=== PATIENT | male | born 1940 | race Caucasian/White ===

== ENCOUNTER 2020-04-23 12:02 | Emergency (ER) | payer MEDICARE, SELFPAY ==
[2020-04-23 12:16] VITALS: BP 95/60; PULSE 77; RESP 18; TEMP 36.3; O2SAT 93; BMI 27.4
--- NOTE | 2020-04-23 13:22 | XR_ITS ---
WS: [id number] XR chest 2V* 38391 REASON FOR EXAM: cough, SOB FINDINGS: Compared to previous examination of 04/18/2020, patchy and reticular infiltrates in both lungs persist . Prominent right hilar region is again noted. Left hilum is also somewhat prominent. No new chest findings are identified. XR/XR chest 2V* 41591 IMPRESSION: Compared to previous examination of 06/15/2017, the chest of 04/18/2020 and 2019 demonstrate infiltrative changes not previously seen. Due to the time inte rval, the chronicity of these infiltrates is uncertain. The findings are compat ible with acute or subacute pneumonitis. The prominence of the hilar regions particularly that on the right is concernin g. It is possible that these are large pulmonary arteries secondary to pulmonar y hypertension however the possibility of adenopathy or neoplastic mass cannot be readily excluded. If possible, when feasible CT scan of the chest with intra venous contrast is recommended. Contrast is needed if at all possible for hilar evaluations.
--- NOTE | 2020-04-23 13:22 | ECG_ITS ---
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 Measurements Intervals [place] Rate: 74 P: 23 [place]: 286 QRS: -8 QRSD: 95 T: 11 QT: 391 QTc: 435 Interpretive Statements SINUS RHYTHM WITH FIRST DEGREE AV BLOCK Compared to ECG 06/15/2017 10:26:09 First degree AV block now present Atrial fibrillation no longer present Ventricular premature complex(es) no longer present Aberrant conduction of supraventricular beat(s) no longer present ST (T wave) deviation no longer present Electronically Signed On 04-23-2020 19:19:59 COMMERCIAL LIGHT FIXTURE ASSEMBLER by Shara Eckert M.D. [email or web address] [email or web address] hospital [facility]vel[facility] west.Tru[employer]/store/OM/[id number]
--- NOTE | 2020-04-23 13:23 | W.ED.SOB ---
HPI - SOB/Dyspnea General: Chief Complaint: Shortness of Breath/Dyspnea Stated Complaint: PCP SENT FOR BRONCHITIS/ANTIBIOTICS 2 WKS Time Seen by Provider: 04/23/20 12:55 Source: patient and family () Mode of arrival: ambulatory Limitations: no limitations History of Present Illness: HPI Narrative: Patient is a 79-year-old man with a history of coronary artery disease, peripheral artery disease, bilateral shoulder replacement, last 1 done 3 months ago. He presents to the emergency department with shortness of breath and cough that has been going on for close to 1 month now. According to the patient and his he usually gets about 2 episodes of bronchitis a year and they believed that this was what was going on initially. He has had 2 rounds of antibiotics and a course of prednisone. He tested positive for COVID-19 on March 29 and has received 10 days of dexamethasone. He has not improved much. His says that he just has been weak and has some dyspnea on exertion. MD elicited complaint: shortness of breath and cough Context: recent illness Timing: constant and progressively worsening Severity: moderate Exacerbating factors: nothing Relieving factors: nothing Associated symptoms: Deny abdominal pain, chest congestion, chest pain, cough, diaphoresis, dizziness, extremity pain, fever(s), hemoptysis, lightheadedness, myalgias, nausea, orthopnea, palpitations, paresthesias, polydipsia, polyuria, rash, sense of impending doom, syncope or vomiting Treatment prior to arrival: none Review of Systems General: Reports: 10 or more systems reviewed and unremarkable except in HPI and below Const: Denies: fever(s) or diaphoresis Eyes: Denies: change in vision or blurry vision ENMT: Denies: throat pain, enlarged tonsils, odynophagia, hoarseness, mouth pain or swelling of lips/tongue Card: Denies: chest pain, palpitations, lightheadedness, syncope or orthopnea Resp: Denies: hemoptysis or chest congestion GI: Denies: abdominal pain, nausea or vomiting : Denies: flank pain, dysuria, urinary frequency, urinary urgency or urinary hesitancy Musc: Denies: extremity pain Skin/Breast: Denies: rash, pruritus or erythema Neuro: Denies: dizziness Endo: Denies: polyuria or polydipsia Physical Exam Const: COMMON NORMALS: no acute distress, average body habitus, patient oriented x3, no limitations, healthy appearing, alert and well nourished HENMT: COMMON NORMALS: normocephalic, atraumatic and moist oral mucous membranes HEAD & SCALP: normocephalic and atraumatic Eye: COMMON NORMALS: Equal, round and reactive pupils present, EOMs intact bilaterally, conjunctivae normal and no scleral icterus CONJUNCTIVA: Yes conjunctivae normal PUPIL: Yes Equal, round and reactive pupils present Neck/C-Spine: COMMON NORMALS: no meningeal signs and no JVD Resp: COMMON NORMALS: normal respiratory effort, No retractions, No use of accessory muscles, clear to auscultation bilaterally and percussion normal AUSCULTATION: clear to auscultation bilaterally PERCUSSION: percussion normal Cardio: COMMON NORMALS: no JVD, regular rate, regular rhythm, S1 normal heart sound present, S2 normal heart sound present, No gallops present (Cardio), No clicks present (Cardio), No murmurs present (Cardio), No rub (Cardio) and Peripheral pulses 2+ throughout RATE: regular rate RHYTHM: regular rhythm HEART SOUNDS: S1 normal heart sound present and S2 normal heart sound present PERIPHERAL PULSES: Peripheral pulses 2+ throughout GI: COMMON NORMALS: Normal to inspection, nondistended, normoactive bowel sounds present, Soft to palpation, non-tender, No hepatosplenomegaly present, no masses and no bruits PALPATION: Yes Soft to palpation and Yes No hepatosplenomegaly present Extremity: COMMON NORMALS: normal to inspection, full ROM, capillary refill normal, no calf tenderness and no pedal edema Neuro: COMMON NORMALS: patient oriented x3 SENSORIUM/ORIENTATION: Yes alert MENINGEAL SIGNS: Yes no meningeal signs Skin: COMMON NORMALS: no rashes or lesions noted, no wounds, turgor normal, no jaundice, no petechiae and no mottling GENERAL SKIN EXAM: no rashes or lesions noted and turgor normal Course Reevaluation(s): Reevaluation #1: Discussed lab and imaging findings with the patient and his . I believe his symptoms are secondary to heart failure. His proBNP is elevated and he does have some groundglass appearance in his lungs on CT scan which is consistent with congestive heart failure. He also has mild aortic aneurysm and he is advised to follow-up with his vascular surgeon for these. He will benefit from an echocardiogram done on an outpatient basis. We will discharge him home with a prescription for furosemide. They voiced understanding and are in agreement with the plan. Time: 18:38 Vital Signs: Vital signs: Vital Signs Temperature 97.3 F L 04/23/20 12:16 Pulse Rate 78 04/23/20 18:58 Respiratory Rate 18 04/23/20 18:58 Blood Pressure 95/60 04/23/20 12:16 Pulse Oximetry 95 04/23/20 18:58 MDM - SOB/Dyspnea MDM Narrative: Medical decision making narrative: 79-year-old male who has been feeling unwell for close to a month now. Symptoms are initially attributed to COVID-19 which he tested positive for and had received a 10-day course of dexamethasone. He had also previously been treated for acute bronchitis with prednisone and antibiotics. Evaluation in the emergency department is consistent with congestive heart failure. The patient had endorsed dyspnea on exertion as his most significant complaint. The patient is discharged home with a prescription for oral furosemide and he is to obtain an outpatient echocardiogram. He will also follow-up with his primary care provider. Medical Records: Attestation: I reviewed the patient's medical records. Lab Data: Attestation: I reviewed the patient's lab results. Labs: Lab Results 04/23/20 04/23/20 04/23/20 Range/Units 14:05 14:05 14:05 WBC 4.3 (4.0-10.0) 10^3/ uL RBC 3.58 L (4.1-5.3) 10^6/u L Hgb 10.4 L (11.7-16.6) g/dL Hct 34.0 L (42.0-52.0) % MCV 95.0 H (80-94) fL MCH 29.1 (28.0-34.0) pg MCHC 30.6 (30.0-36.0) g/dL RDW 16.2 H (12.1-15.1) % Plt Count 213 (130-400) 10^3/c mm MPV 8.9 (7.4-10.4) fL Neut % (Auto) 64.2 % Lymph % (Auto) 17.3 % [place] % (Auto) 11.2 % Eos % (Auto) 5.2 % Baso % (Auto) 0.5 % Neut # (Auto) 2.74 (1.8-7.7) 10^3/u L Lymph # (Auto) 0.7 L (0.8-4.8) 10^3/u L [place] # (Auto) 0.5 (0.2-0.9) 10^3/u L Eos # (Auto) 0.2 (0.0-0.8) 10^3/u L Baso # (Auto) 0.0 (0.0-0.1) 10^3/u L Nucleated RBC % (a uto) 0 % Nucleated RBCs # 0.0 /100WBC D-Dimer 2.64 H (0-0.59) ug/mIFE U Sodium 140 (136-145) mmol/L Potassium 4.5 (3.5-5.1) mmol/L Chloride 105 (98-107) mmol/L Carbon Dioxide 22 (22-29) mmol/L Anion Gap 17.5 (5-19) BUN 22 (8-23) mg/dL Creatinine 2.0 H (0.7-1.2) mg/dL GFR Calculation Not Reportable Glucose 109 (65-115) mg/dL Calculated Osmolal ity 294 (285-295) mOsm/k g Lactate (0.5-2.2) mmol/L Calcium 9.9 (8.5-10.5) mg/dL Magnesium 1.9 (1.7-2.3) mg/dL Total Bilirubin 0.4 (0.15-1.2) mg/dL AST 20 (0-40) U/L ALT 12 (0-41) U/L Alkaline Phosphata se 67 (40-130) IU/L Troponin T Baselin e (0-15) ng/L Troponin T 120 Min viviane (0-15) ng/L Delta Troponin T (0-10) ABS# C-Reactive Protein 56.8 H (0.0-4.9) mg/L NT-Pro-B Natriuret Pep 1897 H (0-450) pg/mL Total Protein 6.7 (6.6-8.7) g/dL Albumin 3.6 (3.5-5.2) g/dL Globulin 3.1 (1.3-4.6) g/dL Procalcitonin 0.13 (0-0.5) ng/mL TSH 1.22 (0.27-4.20) uIU/ mL Urine Color (Yellow) Urine Appearance (CLEAR) Urine pH (5-7) Ur Specific Gravit y (1.005-1.030) Urine Protein (Negative) Urine Glucose (UA) (Normal) Urine Ketones (Negative) Urine Blood (Negative) Urine Nitrate (Negative) Urine Bilirubin (Negative) Urine Urobilinogen (Negative) mg/dL Ur Leukocyte Angelica ase (Negative) Influenza Type A A g (Negative) Influenza Type B A g (Negative) 04/23/20 04/23/20 04/23/20 Range/Units 14:05 14:05 14:05 WBC (4.0-10.0) 10^3/ uL RBC (4.1-5.3) 10^6/u L Hgb (11.7-16.6) g/dL Hct (42.0-52.0) % MCV (80-94) fL MCH (28.0-34.0) pg MCHC (30.0-36.0) g/dL RDW (12.1-15.1) % Plt Count (130-400) 10^3/c mm MPV (7.4-10.4) fL Neut % (Auto) % Lymph % (Auto) % [place] % (Auto) % Eos % (Auto) % Baso % (Auto) % Neut # (Auto) (1.8-7.7) 10^3/u L Lymph # (Auto) (0.8-4.8) 10^3/u L [place] # (Auto) (0.2-0.9) 10^3/u L Eos # (Auto) (0.0-0.8) 10^3/u L Baso # (Auto) (0.0-0.1) 10^3/u L Nucleated RBC % (a uto) % Nucleated RBCs # /100WBC D-Dimer (0-0.59) ug/mIFE U Sodium (136-145) mmol/L Potassium (3.5-5.1) mmol/L Chloride (98-107) mmol/L Carbon Dioxide (22-29) mmol/L Anion Gap (5-19) BUN (8-23) mg/dL Creatinine (0.7-1.2) mg/dL GFR Calculation Glucose (65-115) mg/dL Calculated Osmolal ity (285-295) mOsm/k g Lactate 1.3 (0.5-2.2) mmol/L Calcium (8.5-10.5) mg/dL Magnesium (1.7-2.3) mg/dL Total Bilirubin (0.15-1.2) mg/dL AST (0-40) U/L ALT (0-41) U/L Alkaline Phosphata se (40-130) IU/L Troponin T Baselin e 34 H (0-15) ng/L Troponin T 120 Min viviane (0-15) ng/L Delta Troponin T (0-10) ABS# C-Reactive Protein (0.0-4.9) mg/L NT-Pro-B Natriuret Pep (0-450) pg/mL Total Protein (6.6-8.7) g/dL Albumin (3.5-5.2) g/dL Globulin (1.3-4.6) g/dL Procalcitonin (0-0.5) ng/mL TSH (0.27-4.20) uIU/ mL Urine Color (Yellow) Urine Appearance (CLEAR) Urine pH (5-7) Ur Specific Gravit y (1.005-1.030) Urine Protein (Negative) Urine Glucose (UA) (Normal) Urine Ketones (Negative) Urine Blood (Negative) Urine Nitrate (Negative) Urine Bilirubin (Negative) Urine Urobilinogen (Negative) mg/dL Ur Leukocyte Angelica ase (Negative) Influenza Type A A g Negative (Negative) Influenza Type B A g Negative (Negative) 04/23/20 04/23/20 Range/Units 16:00 17:20 WBC (4.0-10.0) 10^3/ uL RBC (4.1-5.3) 10^6/u L Hgb (11.7-16.6) g/dL Hct (42.0-52.0) % MCV (80-94) fL MCH (28.0-34.0) pg MCHC (30.0-36.0) g/dL RDW (12.1-15.1) % Plt Count (130-400) 10^3/c mm MPV (7.4-10.4) fL Neut % (Auto) % Lymph % (Auto) % [place] % (Auto) % Eos % (Auto) % Baso % (Auto) % Neut # (Auto) (1.8-7.7) 10^3/u L Lymph # (Auto) (0.8-4.8) 10^3/u L [place] # (Auto) (0.2-0.9) 10^3/u L Eos # (Auto) (0.0-0.8) 10^3/u L Baso # (Auto) (0.0-0.1) 10^3/u L Nucleated RBC % (a uto) % Nucleated RBCs # /100WBC D-Dimer (0-0.59) ug/mIFE U Sodium (136-145) mmol/L Potassium (3.5-5.1) mmol/L Chloride (98-107) mmol/L Carbon Dioxide (22-29) mmol/L Anion Gap (5-19) BUN (8-23) mg/dL Creatinine (0.7-1.2) mg/dL GFR Calculation Glucose (65-115) mg/dL Calculated Osmolal ity (285-295) mOsm/k g Lactate (0.5-2.2) mmol/L Calcium (8.5-10.5) mg/dL Magnesium (1.7-2.3) mg/dL Total Bilirubin (0.15-1.2) mg/dL AST (0-40) U/L ALT (0-41) U/L Alkaline Phosphata se (40-130) IU/L Troponin T Baselin e (0-15) ng/L Troponin T 120 Min viviane 32.81 H (0-15) ng/L Delta Troponin T -1.19 L (0-10) ABS# C-Reactive Protein (0.0-4.9) mg/L NT-Pro-B Natriuret Pep (0-450) pg/mL Total Protein (6.6-8.7) g/dL Albumin (3.5-5.2) g/dL Globulin (1.3-4.6) g/dL Procalcitonin (0-0.5) ng/mL TSH (0.27-4.20) uIU/ mL Urine Color Yellow (Yellow) Urine Appearance Clear (CLEAR) Urine pH 6 (5-7) Ur Specific Gravit y 1.010 (1.005-1.030) Urine Protein Neg (Negative) Urine Glucose (UA) Norm (Normal) Urine Ketones Negative (Negative) Urine Blood Neg (Negative) Urine Nitrate Negative (Negative) Urine Bilirubin Neg (Negative) Urine Urobilinogen Norm (Negative) mg/dL Ur Leukocyte Angelica ase Negative (Negative) Influenza Type A A g (Negative) Influenza Type B A g (Negative) Imaging Data^: CXR: Attestation: I personally reviewed and interpreted this imaging study as follows: Radiologist's impression: [address] [address] XRay Report Signed Patient: Juan M Sierra #: [id number] : 2Acct#:[id number] Age/Sex: 79 / MADM Date: 04/23/20 Loc: ERRoom/Bed: Attending Dr: Ordering Provider/Ordering MD: Manoj Dodson MD, [facility] [place] of Service: 04/23/20 Procedure(s): XR chest 2V* 95042 Accession Number(s): [id number] Report Number: [id number] WS: [id number] XR chest 2V* 52800 REASON FOR EXAM: cough, SOB FINDINGS: Compared to previous examination of 04/18/2020, patchy and reticular infiltrates in both lungs persist. Prominent right hilar region is again noted. Left hilum is also somewhat prominent. No new chest findings are identified. XR/XR chest 2V* 75055 IMPRESSION: Compared to previous examination of 06/15/2017, the chest of 04/18/2020 and 04/23/2020 demonstrate infiltrative changes not previously seen. Due to the time interval, the chronicity of these infiltrates is uncertain. The findings are compatible with acute or subacute pneumonitis. The prominence of the hilar regions particularly that on the right is concerning. It is possible that these are large pulmonary arteries secondary to pulmonary hypertension however the possibility of adenopathy or neoplastic mass cannot be readily excluded. If possible, when feasible CT scan of the chest with intravenous contrast is recommended. Contrast is needed if at all possible for hilar evaluations. Dictated By:Rory Stevens Jr, MD Signed By:Rroy Stevens Jr MDSigned Date/Time:04/23/20 1359 DD/ 1347 CTA Chest: Attestation: I personally reviewed and interpreted this imaging study as follows: Radiologist's impression: [facility] [address] [place] [address] CT Scan Report Signed Patient: Juan M Sierra #: [id number] : 2Acct#:[id number] Age/Sex: 79 / MADM Date: 04/23/20 Loc: ERRoom/Bed: Attending Dr: Ordering Provider/Ordering MD: Manoj Dodson MD, [facility] [place] Date of Service: 04/23/20 Procedure(s): CT angio chest PE protcl 51267 Accession Number(s): [id number] Report Number: [id number] WS: [id number] CT angio chest PE protcl 41351 REASON FOR EXAM: SOB, elevated d-dimer, possible mediastinal mass TECHNIQUE: Coronal and sagittal 2-D and MIP reformations. IV CONTRAST ADMINISTERED: 66 mL of Visipaque. TOTAL EXAM DLP: 589.[address] scans at [facility] use at least one of these dose optimization techniques: automated exposure control; mA and/or kV adjustment per patient size (includes targeted exams where dose is matched to clinical indication); or iterative reconstruction. FINDINGS: Moderate four-chamber cardiac enlargement. Extensive coronary artery calcifications. The ascending aorta and aortic arch are tortuous and ectatic with a maximum diameter of 4.2 cm. Extensive calcification. The main and left and right main pulmonary arteries are prominent at 3.5 cm in diameter. No pulmonary emboli are identified. Although the main pulmonary arteries centrally are mildly dilated day do not taper relatively as would be the case in pulmonary artery hypertension. There is minor right and left hilar adenopathy and extensive calcified granulomatous change centrally. The prominence of the hilar regions is due to the prominence of the pulmonary arteries, the right side is more prominent due to overlapping of the dilated tortuous descending aorta. Scattered calcified granulomas in both lungs. No mass or lung nodule. There are patchy areas of groundglass density throughout both lungs. No significant lung consolidation. The thoracic spine demonstrates moderate changes of degenerative spondylosis. CT/CT angio chest PE protcl [id number] IMPRESSION: Mildly dilated ascending aorta and main pulmonary arteries.. The patchy groundglass density is a nonspecific finding. It is seen most commonly in congestive heart failure and in smoking-related small airway disease. Not the usual manifestation of an acute pneumonitis. Dictated By:Rory Stevens Jr, MD Signed By:Rory Stevens Jr MDSigned Date/Time:04/23/201648 DD/ 26 EKG Data^: EKG 1: Attestation: I personally reviewed and interpreted this EKG as follows: EKG Interpretation Date: 04/23/20 EKG interpretation time: 13:58 Prior EKG tracings: not available for review Interpretation: Normal sinus rhythm with first-degree AV block. Heart rate [address] changes. Normal axis. EKG 2: Attestation: I personally reviewed and interpreted this EKG as follows: EKG Interpretation Date: 04/23/20 EKG interpretation time: 17:17 Prior EKG tracings: available for review Interpretation: Sinus rhythm with first-degree AV block. Heart rate [address] changes. Normal axis. Unchanged from earlier today. Discharge Plan Discharge Patient Disposition: Home Clinical Impression: Congestive heart failure Qualifiers: Heart failure type: unspecified Heart failure chronicity: unspecified Qualified Code(s): I50.9 - Heart failure, unspecified Aortic aneurysm Qualifiers: Aortic location: thoracic aorta Presence of rupture: without rupture Qualified Code(s): I71.2 - Thoracic aortic aneurysm, without rupture Condition: Stable Prescriptions: New Lasix 20 mg tablet 20 mg PO DAILY Qty: 30 RF: 0 Continued multivitamin Tablet 1 tab PO DAILY RF: 0 aspirin 81 mg Tablet,Delayed Release (Dr/Ec) 81 mg PO DAILY RF: 0 Juany 1 - 2 tab PO PRN RF: 0 cilostazol 100 mg tablet 100 mg PO BID RF: 0 albuterol sulfate 2.5 mg /3 mL (0.083 %) Solution For Nebulization 2.5 mg INHALATION QID PRN (Reason: Shortness Of Breath) RF: 0 clonazepam 0.5 mg tablet 0.5 mg PO Q12H PRN (Reason: Anxiety) RF: 0 oxycodone-acetaminophen 5-325 mg tablet 1 - 2 tab PO TID PRN (Reason: Pain) RF: 0 isosorbide mononitrate 60 mg tablet extended release 24 hr 60 mg PO DAILY RF: 0 tamsulosin 0.4 mg capsule 0.4 mg PO DAILY RF: 0 amlodipine 10 mg tablet 10 mg PO DAILY RF: 0 indomethacin 25 mg capsule 25 mg PO TID PRN (Reason: gout) RF: 0 Nitrostat 0.4 mg Tablet, Sublingual 0.4 mg SUBLINGUAL Q5M PRN (Reason: Chest Pain) RF: 0 vitamin B complex Tablet 1 tab PO BID RF: 0 atenolol 50 mg tablet 50 mg PO BID RF: 0 garlic Tablet 2 tab PO BID RF: 0 rosuvastatin 20 mg tablet 20 mg PO DAILY RF: 0 Xarelto 2.5 mg tablet 2.5 mg PO BID RF: 0 Elderberry 1 cap PO BID RF: 0 Prevacid 1 cap PO BID PRN (Reason: unknown) RF: 0 Vitamin C 2 tab PO BID RF: 0 Vitamin D3 2 cap PO BID RF: 0 cranberry 1 tab PO BID RF: 0 vitamin A 1 cap PO BID RF: 0 zinc 2 cap PO BID RF: 0 azithromycin 250 mg tablet See Rx Instructions .ROUTE .COMPLEX RF: 0 Discharge Orders: Discharge Order (Routine); Ordered 04/23/20 Ordered By: Manoj Dodson Referrals: Kalani Guillaume MD [Primary Care Provider] - 1-3 days Discharge Diet: Low Salt Discharge Activity: Increase activity as tolerated Patient Instructions: Heart Failure (ED), Thoracic Aortic Aneurysm (ED) Activity Restrictions/Additional Instructions: Return for any new or worsening symptoms. I believe your symptoms are secondary to a condition called congestive heart failure and you will need further testing on this. You will need an ultrasound of your heart, only called an echocardiogram and you should call your battery inspector or your primary care provider to set it up. 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 Have your vascular surgeon follow this up, he does not need to be addressed emergently. Take the new medication as prescribed. It will make you urinate more than normal so I advised that you take it in the morning and not at night. Coding Level of Care Code ED Field Tax Auditor for Chg Fwd Exam Comprehensive
[2020-04-23 14:12] VITALS: PULSE 64; RESP 18
[2020-04-23 14:26] LABS: Basophils % 0.5 %; Eosinophils # 0.2 10^3/uL (0.0-0.8); Eosinophils % 5.2 %; Hemoglobin 10.4 g/dL (11.7-16.6); Lymphocytes # 0.7 10^3/uL (0.8-4.8); Lymphocytes % 17.3 %; Mean Corpuscular HGB Conc 30.6 g/dL (30.0-36.0); Mean Corpuscular Hemoglobin 29.1 pg (28.0-34.0); Mean Platelet Volume 8.9 fL (7.4-10.4); Monocytes # 0.5 10^3/uL (0.2-0.9); Monocytes % 11.2 %; Neutrophils # 2.74 10^3/uL (1.8-7.7); Neutrophils % 64.2 %; Nucleated Red Blood Cells % 0 %; Platelet Count 213 10^3/cmm (130-400); Red Blood Count 3.58 10^6/uL (4.1-5.3); Red Cell Distribution Width 16.2 % (12.1-15.1); White Blood Count 4.3 10^3/uL (4.0-10.0)
[2020-04-23 14:47] LABS: Lactate (Lactic Acid level) 1.3 mmol/L (0.5-2.2)
[2020-04-23 14:51] LABS: D Dimer 2.64 ug/mIFEU (0-0.59)
[2020-04-23 14:55] LABS: NT Pro B Type Natriuretic Pept 1897 pg/mL (0-450); Procalcitonin 0.13 ng/mL (0-0.5); Thyroid Stimulating Hormone 1.22 uIU/mL (0.27-4.20)
[2020-04-23 15:02] LABS: Influenza A by IFA Negative (Negative); Influenza B by IFA Negative (Negative)
[2020-04-23 15:07] LABS: Alanine Aminotransferase 12 U/L (0-41); Albumin Level 3.6 g/dL (3.5-5.2); Alkaline Phosphatase 67 IU/L (40-130); Anion Gap 17.5 (5-19); Aspartate Amino Transferase 20 U/L (0-40); Blood Urea Nitrogen 22 mg/dL (8-23); C Reactive Protein 56.8 mg/L (0.0-4.9); Calcium 9.9 mg/dL (8.5-10.5); Carbon Dioxide 22 mmol/L (22-29); Chloride 105 mmol/L (98-107); Globulin 3.1 g/dL (1.3-4.6); Glucose 109 mg/dL (65-115); Magnesium 1.9 mg/dL (1.7-2.3); Osmolality Calculated 294 mOsm/kg (285-295); Potassium 4.5 mmol/L (3.5-5.1); Sodium 140 mmol/L (136-145); Total Bilirubin 0.4 mg/dL (0.15-1.2); Total Protein 6.7 g/dL (6.6-8.7)
--- NOTE | 2020-04-23 15:22 | ECG_ITS ---
[facility] Test Date: 2020-04-23 Pat Name: Juan M Sierra Department: Room: Gender: Male Senior Grants Officer: : 1940 Requested By: Manoj Dodson I Order Number: [id number] Jez MD: Shara Eckert M.D. Measurements Intervals [place] Rate: 72 P: 52 MS: 283 QRS: -3 QRSD: 100 T: 11 QT: 383 QTc: 419 Interpretive Statements SINUS RHYTHM WITH MARKED SINUS ARRHYTHMIA WITH FIRST DEGREE AV BLOCK Compared to ECG 04/23/2020 13:58:08 No significant changes Electronically Signed On 04-23-2020 19:27:54 MUTUEL DEPARTMENT MANAGER by Shara Eckert M.D. [email or web address] Hui Medical [employer]/store/OM/[id number]/[id number]
--- NOTE | 2020-04-23 15:24 | CT_ITS ---
WS: [id number] CT angio chest PE protcl [id number] REASON FOR EXAM: SOB, elevated d-dimer, possible mediastinal mass TECHNIQUE: Coronal and sagittal 2-D and MIP reformations. IV CONTRAST ADMINISTERED: 66 mL of Visipaque. TOTAL EXAM DLP: 589.[address] scans at [facility] use at least one of these dose optimization techniques: automat ed exposure control; mA and/or kV adjustment per patient size (includes targeted exams where dose is matched to clinical indication); or iterative reconstruction. FINDINGS: Moderate four-chamber cardiac enlargement. Extensive coronary artery calcifications. The ascending aorta and aortic arch are tortuous and ectatic with a maximum diameter of 4.2 cm. Exten sive calcification. The main and left and right main pulmonary arteries are prominent at 3.5 cm in diameter. No pulmonary emboli are identified. Although the main pulmonary arteries centrally are mildly dilated day do not taper relatively as would be the case in pulmonary artery hypertension. There is minor right and left hilar adenopathy and extensive calcified granulomatous change centrally . The prominence of the hilar regions is due to the prominence of the pulmonary arteries, the right s delon is more prominent due to overlapping of the dilated tortuous descending aorta. Scattered calcified granulomas in both lungs. No mass or lung nodule. There are patchy areas of groundglass density throughout both lungs. No significant lung consolidatio n. The thoracic spine demonstrates moderate changes of degenerative spondylosis. CT/CT angio chest PE protcl [id number] IMPRESSION: Mildly dilated ascending aorta and main pulmonary arteries.. The patchy groundglass density is a nonspecific finding. It is seen most common ly in congestive heart failure and in smoking-related small airway disease. Not the usual manifestation of an acute pneumonitis.
[2020-04-23 15:28] LABS: Troponin(5th) Baseline 34 ng/L (0-15)
[2020-04-23] MEDS: hydrocortisone 100 mg/2 mL SDV IVP (15:57)
[2020-04-23] MEDS: diphenhydrAMINE 50 mg/mL SDV 1mL IVP (15:57)
[2020-04-23] MEDS: sodium chloride 0.9% 500 ML 999 ML IV (15:57)
[2020-04-23] MEDS: iodixanol 320 mg/mL 100mL Btl IV (16:12)
[2020-04-23 16:15] LABS: Add Urine Microscopic? NO
[2020-04-23 16:27] LABS: Bilirubin Urine Neg (Negative); Blood Urine Neg (Negative); Glucose Urine UA Norm (Normal); Ketones Urine Negative (Negative); Nitrate Urine Negative (Negative); Protein Urine Neg (Negative); Urine Appearance Clear (CLEAR); Urine Color Yellow (Yellow); Urobilinogen Urine Norm (Negative); pH Urine 6 (5-7)
[2020-04-23 16:28] LABS: Leukocyte Esterase Urine Negative (Negative)
[2020-04-23 18:02] VITALS: PULSE 78; RESP 18; O2SAT 95
[2020-04-23 18:30] LABS: Troponin 5 2HR 32.81 ng/L (0-15)
[2020-04-23 18:31] LABS: Troponin 5 2HR Delta -1.19 ABS# (0-10)
[2020-04-23 18:58] VITALS: PULSE 78; RESP 18; O2SAT 95
== END 2020-04-23 18:58 | disposition home or self-care (01) ==
PROVIDERS: Emergency Provider Family Medicine; PCP Family Medicine
DX: I50.9 Heart failure, unspecified (principal); Z79.82 Long term (current) use of aspirin; Z79.891 Long term (current) use of opiate analgesic; Z79.1 Long term (current) use of non-steroidal anti-inflammatories (NSAID); Z79.01 Long term (current) use of anticoagulants; I71.2 Thoracic aortic aneurysm, without rupture; Z86.19 Personal history of other infectious and parasitic diseases
CPT/HCPCS: 12345; 71046; 71275; 80053; 81003; 83605; 83735; 83880; 84145; 84443; 84484; 85025; 85378; 86140; 87804; 93005; 96374; 96375; 99283; 99284; J1200; J1720; J7030; Q9967

== ENCOUNTER 2020-06-27 12:02 | Outpatient (CLI) | payer MEDICARE, SELFPAY ==
[2020-06-27 12:55] LABS: Basophils % 0.6 %; Eosinophils # 0.4 10^3/uL (0.0-0.8); Eosinophils % 6.4 %; Hematocrit 34.9 % (42.0-52.0); Hemoglobin 10.5 g/dL (11.7-16.6); Lymphocytes # 1.1 10^3/uL (0.8-4.8); Lymphocytes % 16.5 %; Mean Corpuscular HGB Conc 30.1 g/dL (30.0-36.0); Mean Corpuscular Hemoglobin 28.2 pg (28.0-34.0); Mean Corpuscular Volume 93.6 fL (80-94); Mean Platelet Volume 9.2 fL (7.4-10.4); Monocytes # 0.4 10^3/uL (0.2-0.9); Monocytes % 5.8 %; Neutrophils # 4.47 10^3/uL (1.8-7.7); Neutrophils % 70.2 %; Nucleated Red Blood Cells % 0 %; Platelet Count 174 10^3/cmm (130-400); Red Blood Count 3.73 10^6/uL (4.1-5.3); Red Cell Distribution Width 16.2 % (12.1-15.1); White Blood Count 6.4 10^3/uL (4.0-10.0)
[2020-06-28 16:48] LABS: Alternaria Alternata (M6) Ige <0.10 kU/L; Alternaria Class 0; Bermuda Class 0; Bermuda Grass (G2) Ige <0.10 kU/L; Cat Dander (E1) Ige 0.11 kU/L; Cat Dander Class 0/1; Common Ragweed (Short) (W1) Ig <0.10 kU/L; D. Farinae Class 0; Dermatophagoides Class 0; Dermatophagoides Farinae (D2) <0.10 kU/L; Dermatophagoides Pteronyssinus <0.10 kU/L; Dog Dander (E5) Ige 0.35 kU/L; Dog Dander Class 1; Elm (T8) Ige <0.10 kU/L; Elm Class 0; English Plantain (W9) Ige <0.10 kU/L; English Plantain Class 0; House Dust (Greer) (H1) Ige <0.10 kU/L; House Dust (Hollister- Stier) <0.10 kU/L; House Dust Class 0; Immunoglobulin E 103 kU/L (<OR=114); Immunoglobulin E 92 kU/L (<OR=114); Johnson Grass (G10) Ige <0.10 kU/L; Johnson Grass Cl 0; June Grass Class 0; June Grass(Kentucky Blue) (G8) <0.10 kU/L; Lamb'S Quarters (Goose Foot) <0.10 kU/L; Lamb'S Quarters Class 0; Maple (Box Elder) (T1) Ige <0.10 kU/L; Maple Class 0; Meadow Fescue (G4) Ige <0.10 kU/L; Meadow Fescue Class 0; Mucor Racemosus Class 0; Oak (T7) Ige <0.10 kU/L; Oak Class 0; Orchard Grass (Cocksfoot) (G3) <0.10 kU/L; Penicillium Class 0; Penicillium Notatum (M1) Ige <0.10 kU/L; Perennial Rye Grass (G5) Ige <0.10 kU/L; Perennial Rye Grass Class 0; Ragweeed Class 0; Rough Marsh Elder (W16) Ige <0.10 kU/L; Rough Marsh Elder Class 0; Sweet Vernal Class 0; Sweet Vernal Grass (G1) Ige <0.10 kU/L; Timothy Grass (G6) Ige <0.10 kU/L; Timothy Grass Class 0
[2020-07-02 19:27] LABS: Aspergillus Fumigatus, Igg Ab, 8.1 mg/L (<=102)
== END 2020-06-27 12:03 | disposition home or self-care (01) ==
PROVIDERS: PCP Family Medicine; Visit Provider Internal Medicine Critical Care Medicine
DX: R06.02 Shortness of breath (principal); J45.909 Unspecified asthma, uncomplicated; J44.9 Chronic obstructive pulmonary disease, unspecified
CPT/HCPCS: 36415; 82785; 85025; 86003

== ENCOUNTER → 2020-07-06 15:08 | Outpatient (BNVA) | payer MEDICARE, SELFPAY | PROVIDERS: PCP Family Medicine; Visit Provider Internal Medicine Critical Care Medicine | DX: J44.9 Chronic obstructive pulmonary disease, unspecified (principal) | CPT/HCPCS: 87635 ==

== ENCOUNTER 2020-07-11 09:37 | Outpatient (CLI) | payer MEDICARE, SELFPAY ==
--- NOTE | 2020-07-11 10:26 | PFTS_ITS ---
Date of Study:07/11/20 Date of Dictation: MECHANICS: Forced vital capacity (FVC) is normal. Forced expiratory volume in one second (FEV1) is normal. FEV1/FVC is normal. FLOW VOLUME LOOP: Normal. LUNG VOLUMES: Total lung capacity (TLC) is normal. Residual volume (RV) is normal. DIFFUSING CAPACITY FOR CARBON MONOXIDE: Moderately reduced. Has not been corrected for patient's hemoglobin. INTERPRETATION: The prebronchodilator spirometry is normal. The lung volumes are normal. Gas exchange (DLCO) is moderately reduced. This is a disproportionate reduction compared to the spirometric findings. MTDD
== END 2020-07-11 09:38 | disposition home or self-care (01) ==
LOC: RT 09:39
PROVIDERS: PCP Family Medicine; Visit Provider Internal Medicine Critical Care Medicine
DX: J45.909 Unspecified asthma, uncomplicated (principal)
CPT/HCPCS: 94010; 94726; 94729

== ENCOUNTER → 2021-05-12 10:44 | Outpatient (BNVA) | payer MEDICARE, SELFPAY | PROVIDERS: PCP Family Medicine; Visit Provider Internal Medicine | DX: M19.90 Unspecified osteoarthritis, unspecified site (principal); Z79.899 Other long term (current) drug therapy; Z11.59 Encounter for screening for other viral diseases; Z11.1 Encounter for screening for respiratory tuberculosis; Z87.891 Personal history of nicotine dependence | CPT/HCPCS: 36415; 99214 ==

== ENCOUNTER 2021-05-12 13:30 | Outpatient (CLI) | payer MEDICARE, SELFPAY ==
--- NOTE | 2021-05-12 13:35 | XR_ITS ---
WS: [id number] LEFT HAND: 2 VIEW(S) TECHNIQUE: PA and lateral. HISTORY: M19.90 - Unspecified osteoarthritis, unspecified site COMPARISON: None available. No acute fracture or dislocation. Mild diffuse interphalangeal joint space narrowing. Mild narrowing at the STT and the CMC joint. Ther e are small erosions noted within the third metacarpal head and also involving the ulnar styloid and the third proximal phalanx. Peripheral arterial calcifications. XR/XR hand LT 2V [id number] IMPRESSION: 1. Suspect rheumatoid involvement. There are erosions at several locations. 2. Additional interphalangeal joint space narrowing osteoarthritis.
--- NOTE | 2021-05-12 13:35 | XR_ITS ---
WS: [id number] RIGHT HAND: 2 VIEW(S) TECHNIQUE: PA and lateral. HISTORY: M19.90 - Unspecified osteoarthritis, unspecified site COMPARISON: None available. Interphalangeal joint space narrowing is mild throughout the hand. Mild second and third metacarpal p halangeal joint space narrowing. There is an area of erosion involving the proximal third metacarpal. Lytic area in the middle phalanx of the fifth finger with thinning of the cortex. Moderate narrowing of the radiocarpal joint. Widening of the scapholunate articulation. Increased soft tissue density a djacent to the ulnar styloid and over the dorsal wrist.. Vascular calcifications XR/XR hand RT 2V [id number] IMPRESSION: 1. Soft tissue nodule with increased density adjacent to the ulnar styloid and over the dorsal wrist. Consider gout. 2. Additional erosion involving the proximal third metacarpal. 3. Widening of scapholunate articulation can be seen with rheumatoid arthritis .
--- NOTE | 2021-05-12 13:35 | XR_ITS ---
WS: [id number] RIGHT FOOT: 2 VIEW(S) TECHNIQUE: AP and lateral. HISTORY: M25.50 - Pain in unspecified joint COMPARISON: None available. No acute fracture or dislocation. Amorphous area of increased density in the soft tissues may be calcification or uremic deposit measur ing 2.5 cm adjacent to the fifth metatarsophalangeal joint. No definite erosions are identified. Very mild soft tissue thickening at the first metatarsophalangeal joint. No erosions. Moderate peripheral vascular calcifications. XR/XR foot RT 2V [id number] IMPRESSION: 1. Dense soft tissue mass at the fifth metatarsophalangeal joint. No definite erosion is identified. 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 2. Peripheral arterial calcifications.
--- NOTE | 2021-05-12 13:35 | XR_ITS ---
WS: [id number] LEFT FOOT: 2 VIEW(S) TECHNIQUE: AP and lateral. HISTORY: M25.50 - Pain in unspecified joint COMPARISON: None available. No acute fracture or dislocation. Mild osteopenia with interphalangeal joint space narrowing. Increased density in the soft tissues adj acent to the first metatarsophalangeal joint may be a uremic deposit measuring 2.7 cm. There are tiny erosions noted within the first metatarsal head. No definite additional erosions. Lucency in the fif th metatarsal head is probably a developing erosion. No subluxations. Mild peripheral arterial calcifications. Additional lobulated soft tissue density measuring 3.4 cm adjacent to the proximal fifth metatarsal. XR/XR foot LT 2V [id number] IMPRESSION: 1. High density nodules within the soft tissues adjacent to the proximal fifth metatarsal and at the first metatarsophalangeal joint. Consider gout with urem ic deposits/tophus as a possible etiology. There is a small erosion in the firs t metatarsal head. 2. No fractures.
== END 2021-05-12 13:31 | disposition home or self-care (01) ==
PROVIDERS: PCP Family Medicine; Visit Provider Internal Medicine
DX: M19.90 Unspecified osteoarthritis, unspecified site (principal); M25.50 Pain in unspecified joint; Z11.59 Encounter for screening for other viral diseases; Z11.1 Encounter for screening for respiratory tuberculosis; Z79.899 Other long term (current) drug therapy; Z87.891 Personal history of nicotine dependence
CPT/HCPCS: 36415; 73120; 73620; 80053; 82306; 82728; 83540; 83735; 84550; 85025; 85651; 86140; 86160; 86162; 86200; 86235; 86255; 86376; 86431; 86480; 86704; 86803; 87340; 99214

== ENCOUNTER → 2021-05-29 13:12 | Outpatient (BNVA) | payer MEDICARE, SELFPAY | PROVIDERS: PCP Family Medicine; Visit Provider Internal Medicine | DX: M06.00 Rheumatoid arthritis without rheumatoid factor, unspecified site (principal); N18.9 Chronic kidney disease, unspecified; I73.9 Peripheral vascular disease, unspecified; Z87.891 Personal history of nicotine dependence | CPT/HCPCS: 99213; 99214 ==

== ENCOUNTER → 2021-06-25 08:44 | Outpatient (BNVA) | payer MEDICARE, SELFPAY | PROVIDERS: PCP Family Medicine; Visit Provider Internal Medicine | DX: M19.90 Unspecified osteoarthritis, unspecified site (principal); N18.9 Chronic kidney disease, unspecified; Z79.899 Other long term (current) drug therapy | CPT/HCPCS: 36415; 80053; 85025; 85651; 86140 ==

== ENCOUNTER → 2021-07-03 12:55 | Outpatient (BNVA) | payer MEDICARE, SELFPAY | PROVIDERS: PCP Family Medicine; Visit Provider Internal Medicine | DX: M19.90 Unspecified osteoarthritis, unspecified site (principal); N18.9 Chronic kidney disease, unspecified; I73.9 Peripheral vascular disease, unspecified; G62.9 Polyneuropathy, unspecified; R19.7 Diarrhea, unspecified; Z87.891 Personal history of nicotine dependence; Z77.22 Contact with and (suspected) exposure to environmental tobacco smoke (acute) (chronic); Z96.641 Presence of right artificial hip joint; Z96.619 Presence of unspecified artificial shoulder joint | CPT/HCPCS: 99214 ==

== ENCOUNTER 2021-08-04 03:48 | Inpatient (IN) | payer MEDICARE, SELFPAY ==
[2021-08-04] VITALS (13 sets, daily range): BP systolic 128–166; BP diastolic 68–96; PULSE 63–84; RESP 14–18; TEMP 36.2–37.2; O2SAT 92–98; BMI 26.6
--- NOTE | 2021-08-04 | CT_ITS ---
WS: [id number] CT ABDOMEN AND PELVIS NONCONTRAST HISTORY: GI BLEED TECHNIQUE: Imaging performed through the abdomen and pelvis. Coronal and sagittal reformats are submi tted. All CT scans at [facility] use at least one of these dose optimization techniques: auto mated exposure control; mA and/or kV adjustment per patient size (includes targeted exams where dose is matched to clinical indication); or iterative reconstruction. DLP: 1650.84 mGy.cm COMPARISON: None available. Lower thorax: Mild enlargement of the heart chambers. Mild dependent changes at the lung bases. Very small hiatal hernia. Liver: Normal size liver. No mass or bile duct dilatation. Gallbladder: Normal gallbladder. Pancreas: Normal size and attenuation. Normal pancreatic duct. No pancreatitis or mass. Spleen: A few scattered granulomata. Normal size. Adrenal glands: Normal. No mass. Right kidney: Diffuse cortical thinning and perinephric stranding. Heavy calcification in the renal a rteries. 10 mm cortical cyst mid kidney. No obstruction. Left kidney: Numerous cysts within the LEFT kidney. The largest measures 4.1 x 3.7 cm. No hydronephro sis. There is mild perinephric stranding. Heavy vascular calcifications within the renal pelvis. Aorta: Extensive atherosclerotic plaque throughout the aorta and the mesenteric arteries. Heavy calci fied plaque in the superior mesenteric artery and to a lesser extent the celiac axis. Suspect there i s significant stenosis involving the SMA. Heavy calcification involving the proximal renal arteries. Tortuosity and mild dilatation of the infrarenal aorta. Maximum diameter is approximately 3.6 cm. Hea vy calcification continues into the common iliac arteries. No free fluid, intraperitoneal air or significant lymphadenopathy. GI tract: The appendix is normal. No small bowel obstruction. Tortuous overlapping loops of colon. Th ere is extensive diverticulosis throughout the colon but most significant involving the descending an d sigmoid colon. There is marked wall thickening within the sigmoid with numerous diverticula. Cannot evaluate for enhancing mass on this unenhanced study. The abnormality noted above the urinary bladde r on ultrasound correlates with circumferential wall thickening of the sigmoid colon and diverticular disease. No obstruction. Abdominal wall: Negative. No hernia. Pelvis: Extensive calcifications continue within the iliac arteries. Urinary bladder well distended. No free fluid in the pelvis. Artifact through the pelvis from the patient's RIGHT hip prosthesis. Osseous structures: Advanced degenerative changes throughout the lumbar spine and lower thoracic spin e. Disc spaces are narrowed. Moderate osteophytic ridging throughout the lumbar spine. CT/CT abdomen pelvis wo con [id number] IMPRESSION: 1. Extensive descending and sigmoid diverticulosis without acute diverticuliti s. There is significant wall thickening and numerous diverticula in the sigmoid region. Changes on the recent ultrasound correspond to wall thickening in the sigmoid. May need colonoscopy to exclude underlying mass. 2. No free air or free fluid. 3. Bilateral renal atrophy and cysts. 4. Severe atherosclerosis aorta and mesenteric arteries. Mild aneurysmal dilat ation aorta with a maximum diameter of 3.6 cm. 5. No adenopathy.
--- NOTE | 2021-08-04 03:55 | W.ED.GIBLEED ---
HPI - GI Bleed General: Chief complaint: GI Bleed Stated complaint: RECTAL BLEEDING Time Seen by Provider: 08/04/21 03:54 Source: patient and EMS Mode of arrival: EMS Limitations: no limitations History of Present Illness: 81-year-old male states that he been having some bright red blood in his stool over the last 2 weeks. He states that tonight starting in mid 90s did have a large amount. He states he had multiple bowel movements of. Red blood. Denies any abdominal pain denies any vomiting blood denies any dark blood. He is on blood thinners. He denies any worsening improving factors. Associated symptoms: Denies chills, easy bruising, fever(s), headache(s) or rash Review of Systems Const: Denies: fever(s), chills, body aches or change in appetite Eyes: Denies: blurry vision or eye discomfort ENMT: Denies: throat pain or dental pain Card: Denies: chest pain Resp: Denies: dyspnea GI: Reports: hematochezia : Denies: dysuria Musc: Denies: neck pain or back pain Skin/Breast: Denies: rash Neuro: Denies: headache(s) Psych: Denies: depression Gordon/Lymph: Denies: easy bruising All/Imm: Denies: urticaria PFSH ED PFSH: Family History Sister Cancer Hyperlipidemia Hypertension Rheumatoid arthritis Mother Hyperlipidemia Hypertension Rheumatoid arthritis Father Hyperlipidemia Hypertension Stroke Rheumatoid arthritis Brother Hyperlipidemia Hypertension Heart attack Rheumatoid arthritis Denies family history of Diabetes Lupus Social History Quit status (tobacco): has quit using tobacco Year quit tobacco: 1989PP x 30 Years Second hand smoke exposure: Yes Smoking risk assessment/counseling performed?: No Alcohol intake: current Alcohol intake frequency: few times a week Alcohol type: wine Desire information about alcohol rehabilitation?: No Counseling given: No Desire information about substance/drug rehabilitation?: No Counseling given: No Lives independently: Yes Household members: spouse Marital status: service: Yes Current occupational status: retired History of recent travel: No Current gender identity: Male Physical Exam Const: COMMON NORMALS: no acute distress, patient oriented x3 and healthy appearing HENMT: COMMON NORMALS: normocephalic and atraumatic HEAD & SCALP: normocephalic and atraumatic Eye: COMMON NORMALS: Equal, round and reactive pupils present and EOMs intact bilaterally PUPIL: Yes Equal, round and reactive pupils present Neck/C-Spine: COMMON NORMALS: full ROM and supple Chest: COMMONS NORMALS: normal inspection of the chest and normal palpation of entire chest wall Resp: COMMON NORMALS: normal respiratory effort, No retractions, No use of accessory muscles and clear to auscultation bilaterally AUSCULTATION: clear to auscultation bilaterally Cardio: COMMON NORMALS: regular rate, regular rhythm and No murmurs present (Cardio) RATE: regular rate RHYTHM: regular rhythm GI: COMMON NORMALS: Normal to inspection, nondistended, normoactive bowel sounds present, Soft to palpation, non-tender and no masses PALPATION: Yes Soft to palpation OTHER: Small amount of bright red blood on rectal exam that is Hemoccult positive Extremity: COMMON NORMALS: normal to inspection and full ROM Neuro: COMMON NORMALS: patient oriented x3, moves all extremities and no focal motor deficits Psych: COMMON NORMALS: mental status grossly normal, Normal thought process present and cooperative THOUGHT PROCESS: Normal thought process present Skin: COMMON NORMALS: no rashes or lesions noted and no wounds GENERAL SKIN EXAM: no rashes or lesions noted Course Vital Signs: Vital signs: Vital Signs Temperature 97.2 F L 08/04/21 03:52 Pulse Rate 74 08/04/21 04:40 Respiratory Rate 18 08/04/21 04:40 Blood Pressure 158/96 08/04/21 04:40 Pulse Oximetry 92 08/04/21 04:40 MDM - GI Bleed Medical Decision Making Patient presents here with a lower GI bleed he is on blood thinners blood count and blood pressures normal spoke to the hospitalist along with surgeon on-call and will admit at this time. Lab Data : 08/04/21 04:00 08/04/21 04:00 Laboratory Results WBC 6.4 10^3/uL (4.0-10.0) 08/04/21 04:00 RBC 3.70 10^6/uL (4.1-5.3) L 08/04/21 04:00 Hgb 11.1 g/dL (11.7-16.6) L 08/04/21 04:00 Hct 36.4 % (42.0-52.0) L 08/04/21 04:00 MCV 98.4 fl (80-94) H 08/04/21 04:00 MCH 30.0 pg (28.0-34.0) 08/04/21 04:00 MCHC 30.5 g/dL (30.0-36.0) 08/04/21 04:00 RDW 17.3 % (12.1-15.1) H 08/04/21 04:00 Plt Count 171 10^3/cmm (130-400) 08/04/21 04:00 MPV 9.5 fL (7.4-10.4) 08/04/21 04:00 Neut % (Auto) 64.3 % 08/04/21 04:00 Lymph % (Auto) 23.6 % 08/04/21 04:00 [place] % (Auto) 7.6 % 08/04/21 04:00 Eos % (Auto) 3.3 % 08/04/21 04:00 Baso % (Auto) 0.3 % 08/04/21 04:00 Neut # (Auto) 4.08 10^3/uL (1.8-7.7) 08/04/21 04:00 Lymph # (Auto) 1.5 10^3/uL (0.8-4.8) 08/04/21 04:00 [place] # (Auto) 0.5 10^3/uL (0.2-0.9) 08/04/21 04:00 Eos # (Auto) 0.2 10^3/uL (0.0-0.8) 08/04/21 04:00 Baso # (Auto) 0.0 10^3/uL (0.0-0.1) 08/04/21 04:00 Nucleated RBC % (auto) 0 % 08/04/21 04:00 Nucleated RBCs # 0.0 /100WBC 08/04/21 04:00 PT 14.70 SECONDS (12.1-14.9) 08/04/21 04:00 INR 1.12 (0.8-1.2) 08/04/21 04:00 Sodium 137 mmol/L (136-145) 08/04/21 04:00 Potassium 4.2 mmol/L (3.5-5.1) 08/04/21 04:00 Chloride 103 mmol/L (98-107) 08/04/21 04:00 Carbon Dioxide 23 mmol/L (22-29) 08/04/21 04:00 Anion Gap 15.2 (5-19) 08/04/21 04:00 BUN 33 mg/dL (8-23) H 08/04/21 04:00 Creatinine 2.2 mg/dL (0.7-1.2) H 08/04/21 04:00 GFR Calculation Not Reportable 08/04/21 04:00 Glucose 95 mg/dL (65-115) 08/04/21 04:00 Calculated Osmolality 291 mOsm/kg (285-295) 08/04/21 04:00 Calcium 9.2 mg/dL (8.5-10.5) 08/04/21 04:00 Total Bilirubin 0.4 mg/dL (0.15-1.2) 08/04/21 04:00 AST 29 U/L (0-40) 08/04/21 04:00 ALT 18 U/L (0-41) 08/04/21 04:00 Alkaline Phosphatase 77 IU/L (40-130) 08/04/21 04:00 Total Protein 6.3 g/dL (6.6-8.7) L 08/04/21 04:00 Albumin 4.2 g/dL (3.5-5.2) 08/04/21 04:00 Globulin 2.1 g/dL (1.3-4.6) 08/04/21 04:00 Blood Type O Positive 08/04/21 04:00 Rho(D) Type Positive 08/04/21 04:00 Antibody Screen Negative 08/04/21 04:00 Discharge Plan Discharge Patient Disposition: Admitted As Inpatient Clinical Impression: Acute lower GI bleeding Condition: Stable Coding Level of Care Code ED Residential Child Care Counselor for Chg Fwd Exam Comprehensive
[2021-08-04 04:09] LABS: Basophils % 0.3 %; Eosinophils # 0.2 10^3/uL (0.0-0.8); Eosinophils % 3.3 %; Hematocrit 36.4 % (42.0-52.0); Hemoglobin 11.1 g/dL (11.7-16.6); Lymphocytes # 1.5 10^3/uL (0.8-4.8); Lymphocytes % 23.6 %; Mean Corpuscular HGB Conc 30.5 g/dL (30.0-36.0); Mean Corpuscular Volume 98.4 fl (80-94); Mean Platelet Volume 9.5 fL (7.4-10.4); Monocytes # 0.5 10^3/uL (0.2-0.9); Monocytes % 7.6 %; Neutrophils # 4.08 10^3/uL (1.8-7.7); Neutrophils % 64.3 %; Nucleated Red Blood Cells % 0 %; Platelet Count 171 10^3/cmm (130-400); Red Cell Distribution Width 17.3 % (12.1-15.1); White Blood Count 6.4 10^3/uL (4.0-10.0)
[2021-08-04 04:20] LABS: INR 1.12 (0.8-1.2)
[2021-08-04 04:29] LABS: Alanine Aminotransferase 18 U/L (0-41); Albumin Level 4.2 g/dL (3.5-5.2); Alkaline Phosphatase 77 IU/L (40-130); Anion Gap 15.2 (5-19); Aspartate Amino Transferase 29 U/L (0-40); Blood Urea Nitrogen 33 mg/dL (8-23); Calcium 9.2 mg/dL (8.5-10.5); Carbon Dioxide 23 mmol/L (22-29); Chloride 103 mmol/L (98-107); Globulin 2.1 g/dL (1.3-4.6); Glucose 95 mg/dL (65-115); Osmolality Calculated 291 mOsm/kg (285-295); Potassium 4.2 mmol/L (3.5-5.1); Sodium 137 mmol/L (136-145); Total Bilirubin 0.4 mg/dL (0.15-1.2); Total Protein 6.3 g/dL (6.6-8.7)
--- NOTE | 2021-08-04 04:33 | PC.NURSE ---
Pt. having bowel movements with bright red blood and blood clots throughout.
--- NOTE | 2021-08-04 04:36 | PC.NURSE ---
Pt. family extremely nervous and repeatedly asks for staff to come help in room and keeps asking what is causing this issue. I have explained that his labs are being ran in the lab and we will have more answers when the data comes back.
--- NOTE | 2021-08-04 06:19 | US_ITS ---
WS: [id number] RENAL ULTRASOUND HISTORY: Evaluate for hydronephrosis COMPARISON: None available. TECHNIQUE: 2-D and color Doppler imaging of the kidney submitted. Right kidney: 9.8 cm x 4.9 cm x 6.8 cm. Mild renal atrophy and mild increased echogenicity. Cortical cysts. The largest in the lower pole jesse sures 1.6 x 1.8 x 1.5 cm. No solid mass. No hydronephrosis. Left kidney: 10.9 cm x 5.6 cm x 6.3 cm. Normal size kidney. Several cortical cysts with no solid mass. The largest cyst in the mid kidney jesse sures 4.0 x 4.5 x 4.5 cm. No hydronephrosis. Aorta: Mild aneurysmal dilatation of aorta. Maximum diameter 3.3 cm. Urinary Bladder: Minimally distended urinary bladder. There is a soft tissue mass predominantly predo minantly hypoechoic with a few scattered areas of increased echogenicity above the urinary bladder. T his was thought to be peristalsing. May be an abnormal loop of bowel. US/US renal BI* [id number] IMPRESSION: 1. No hydronephrosis. 2. Bilateral renal cysts. 3. Abnormal mass above the urinary bladder appear to be peristalsing on the CT . This may be a colonic lesion and will need further evaluation by CT. Suggest follow-up CT with IV contrast.
--- NOTE | 2021-08-04 06:27 | P.HP_ITS ---
Providers/Chief Complaint Admitting Physician: Lashonda Muniz MD Primary Care Provider: Kalani Guillaume MD Chief Complaint: RECTAL BLEEDING History of Present Illness Juan M Sierra is a 81 year old male with seronegative arthritis, follows with rheumatology as outpatient, presenting with lower GI bleed that started yesterday. Described as bright red blood per rectum that started at midnight. He woke up in a pool of blood and has had large amount of fresh blood and clots. 2 further episodes since presenting into ER. Denies abdominal pain. Currently on ASA, cilostazol and xarelto for a h/o CAD and PAD with femoral stents. Per , vascular surgeon at [facility] has wanted him to continue all 3. No recent change in medications except that he has recently resumed his indomethacin TID due to worsening arthritis pain after being off for a month due to CKD. No h/o past colonoscopy. 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 Recently over the past 6 weeks she has noticed some drops of blood at the end of defecation for which referral was provided to GI services at [facility] howevere patient has not been there yet. No h/o UGIE. no recent weight loss, change in appetite. Review of Systems General: Reports: 10 or more systems reviewed and unremarkable except in HPI and below Const: Denies: fever(s), chills or body aches Eyes: Denies: change in vision, blurry vision or photophobia ENMT: Reports: hoarseness; Denies: throat pain, enlarged tonsils, odynophagia or nasal congestion Card: Denies: chest pain, palpitations, irregular heart rhythm, edema, swelling of feet/ankles, lightheadedness, pre-syncope, dyspnea on exertion or orthopnea Resp: Denies: dyspnea, productive cough, non-productive cough, wheezing, stridor, pain on inspiration, change in phlegm color, hemoptysis or chest congestion GI: Denies: abdominal pain, nausea, vomiting, hematemesis, coffee ground emesis, dysphagia, heartburn, diarrhea, constipation, GI cramping, change in stool character, hematochezia or melena : Denies: flank pain, dysuria, urinary frequency, urinary urgency, urinary hesitancy or hematuria Musc: Denies: neck pain, back pain, extremity pain, joint swelling, joint warmth or deformity Neuro: Denies: headache(s), numbness in extremities, weakness in extremities, sensory changes, difficulty walking, frequent falls, dizziness, vertigo, behavioral changes, Slurred speech present or seizure-like activity Psych: Denies: anxiety, depression, suicidal ideation or homicidal ideation Endo: Denies: polyuria, polydipsia, tired all the time, cold intolerance or hot flashes Gordon/Lymph: Denies: easy bruising or easy bleeding Medications/Allergies Home Medications Medication Instructions Recorded Confirmed Last Taken Type Juany 1 - 2 tab PO PRN 04/23/20 07/03/21 Unknown History Elderberry 1 cap PO BID 04/23/20 07/03/21 Unknown History Vitamin C 2 tab PO BID 04/23/20 07/03/21 Unknown History Vitamin D3 2 cap PO BID 04/23/20 07/03/21 Unknown History albuterol sulfate 2.5 mg INHALATION QID PRN 04/23/20 07/03/21 04/23/20 History aspirin 81 mg tablet,delayed 81 mg PO DAILY 04/23/20 07/03/21 Unknown History release cilostazol 100 mg tablet 100 mg PO BID 04/23/20 07/03/21 04/23/20 History clonazepam 0.5 mg tablet 0.5 mg PO Q12H PRN 04/23/20 07/03/21 Unknown History cranberry 1 tab PO BID 04/23/20 07/03/21 Unknown History garlic 2 tab PO BID 04/23/20 07/03/21 Unknown History isosorbide mononitrate 60 mg 60 mg PO DAILY 04/23/20 07/03/21 04/23/20 History tablet,extended release 24 hr nitroglycerin 0.4 mg sublingual 0.4 mg SUBLINGUAL Q5M PRN 04/23/20 07/03/21 Unknown History tablet (Nitrostat) rivaroxaban 2.5 mg tablet (Xarelto) 2.5 mg PO BID 04/23/20 07/03/21 04/23/20 History rosuvastatin 20 mg tablet 20 mg PO DAILY 04/23/20 07/03/21 Unknown History tamsulosin 0.4 mg capsule 0.4 mg PO DAILY 04/23/20 07/03/21 04/23/20 History vitamin A 1 cap PO BID 04/23/20 07/03/21 Unknown History vitamin B complex 1 tab PO BID 04/23/20 07/03/21 Unknown History fluticasone propionate 50 1 spray INTRANASAL BID 30 Days #16 04/10/21 07/03/21 Unknown Rx mcg/actuation nasal g spray,suspension (Flonase Allergy Relief) Prevacid 1 cap PO DAILY 05/12/21 07/03/21 Unknown History amlodipine 5 mg tablet 5 mg PO DAILY 05/12/21 07/03/21 Unknown History atenolol 25 mg tablet 25 mg PO DAILY 05/12/21 07/03/21 Unknown History calcium carb-vit [id number] 1 tab PO DAILY 05/12/21 07/03/21 Unknown History 333 mg-200 unit-133 mg-5 mg tablet diphenhydramine 25 1 tab PO Q6H PRN 05/12/21 07/03/21 Unknown History mg-acetaminophen 500 mg tablet (Tylenol PM Extra Strength) indomethacin 25 mg capsule 25 mg PO TID 05/12/21 07/03/21 Unknown History omega-3 fatty acids 1,000 mg 1,000 mg PO DAILY 05/12/21 07/03/21 Unknown History capsule (Super [place]-3) triamcinolone acetonide 0.1 % 1 applic TOPICAL DAILY 05/12/21 07/03/21 Unknown History topical cream albuterol sulfate 90 mcg/actuation 2 puff INHALATION QID PRN 30 Days 05/15/21 07/03/21 Unknown Rx aerosol inhaler #18 g diclofenac sodium 1 % topical gel 4 g TOPICAL QID #100 g 05/29/21 07/03/21 Unknown Rx (Voltaren Arthritis Pain) prednisone 5 mg tablet See Rx Instructions PO DAILY #60 05/29/21 07/03/21 Unknown Rx tab Symbicort 160 mcg-4.5 See Rx Instructions .ROUTE 06/23/21 07/03/21 Unknown Rx mcg/actuation HFA aerosol inhaler .COMPLEX #11 g NS (budesonide-formoterol) sulfasalazine 500 mg tablet 0.5 g PO DAILY #30 tab 07/03/21 07/03/21 Unknown Rx gabapentin 100 mg capsule 100 mg PO DAILY #30 cap 07/04/21 Unknown Rx Allergies Allergy/AdvReac Type Severity Reaction Status Date / Time iodine Allergy ALGY-Bliste Verified 07/03/21 13:05 r morphine Allergy ALGY-Rash Verified 07/03/21 13:05 povidone-iodine Allergy Unknown Verified 07/03/21 13:05 [From Betadine] soap [From Betadine] Allergy Unknown Verified 07/03/21 13:05 PFSH Acute PFSH: Family History Sister Cancer Hyperlipidemia Hypertension Rheumatoid arthritis Mother Hyperlipidemia Hypertension Rheumatoid arthritis Father Hyperlipidemia Hypertension Stroke Rheumatoid arthritis Brother Hyperlipidemia Hypertension Heart attack Rheumatoid arthritis Denies family history of Diabetes Lupus Social History Quit status (tobacco): has quit using tobacco Year quit tobacco: 1989 - PP x 30 Years Second hand smoke exposure: Yes Smoking risk assessment/counseling performed?: No Alcohol intake: current Alcohol intake frequency: few times a week Alcohol type: wine Desire information about alcohol rehabilitation?: No Counseling given: No Desire information about substance/drug rehabilitation?: No Counseling given: No Lives independently: Yes Household members: spouse Marital status: service: Yes Current occupational status: retired History of recent travel: No Current gender identity: Male Vitals/I&O/Wt Last Vital Signs Temp 97.4 F L 08/04/21 05:33 Pulse 83 08/04/21 05:33 Resp 17 08/04/21 05:33 BP 166/84 08/04/21 05:33 Pulse Ox 96 08/04/21 05:33 Weight last 48 hrs Weight 81.647 kg Physical Exam Narrative: GEN: Awake, alert and oriented, no acute distress CVS: S1S2 N RS: CTA B/L Abd: Soft, nt/nd , bs+ TITLE INSURANCE EXAMINER: no focal neuro deficits Data : 08/04/21 04:00 08/04/21 04:00 A&P Assessment and plan (1) Acute lower GI bleeding: Painless acute lower GI bleeding Suspected to be diverticular vs hemorrhoidal bleeding Hb currently stable at 11, hemodynamically stable Holding antihypertensives for now. Hold ASA, cilostazol and xarelto. extremely anxious about stopping DAPT and a/c due to risk of CAD and PAD, however explained in detail that at this time risk of worsening bleeding and hemodynamic instability outweights the risk of potential blood clot with temporarily holding a/c and antiplatelets. Dr. Delarosa consulted from ER for likely colonoscopy NPO for now cycle H&H q6h transfusion threshold 8 in cardiac patient continue beta blockers Status: Acute (2) CKD (chronic kidney disease): cr worsened over baseline, currently at 2.2 Patient has recently resumed indomethacin TID after being off for a few months due to flare of arhthritis , which may explain worsened cr no renal imaging on record, will obtain US renal today denies any current urinary complaints Status: Acute (3) Arthritis: continue prednisone 5 mg daily, topical diclofenac gel Status: Acute Attestations Medical Necessity Statement*: >2midnight anticipated for above defined care Coding Level of Care Code Acute Structural Fitter for [facility] Diagnoses Acute lower GI bleeding K92.2 CKD (chronic kidney disease) N18.9 Arthritis M19.90
[2021-08-04] MEDS: sodium chloride 0.9% 1,000 ML 75 ML IV (06:55)
--- NOTE | 2021-08-04 08:01 | PC.NURSE ---
Per dr Muniz, for morning meds, only give the atenolol and protonix. Hold gabapentin, sulfasalazine, tamsulosin and atorvastatin until tomorrow.
[2021-08-04] MEDS: ipratropium-albuterol 3 mL Neb INHALATION ×3 (08:08→20:57)
[2021-08-04] MEDS: pantoprazole 40 mg SDV IVP ×2 (08:15→21:57)
[2021-08-04 08:30] LABS: Hematocrit 33.2 % (42.0-52.0)
--- NOTE | 2021-08-04 10:17 | PC.CHAP ---
Pastoral Care Encounter/Spiritual Assessment Type of Contact [] Declined lsat instructor visit [] Patient/Family/Request visit [] Outpatient visit [] Follow-up visit [] Physician referral [] Code/Alert [x] Routine visit [] Staff referral [] Actively dying [] Patient sleeping [] Family support [] [] Out of room [] Palliative care [] [] Receiving care in room [] Pre-surgical visit [] Trauma [] Long length of stay [] ICU visit [] Other: Relational/Emotional Strength [x] Patient feels connected with others/family/visitors/staff [] Distress [] Loneliness/isolation [] Abandonment Spirituality of Patient [x] Person of Charley [x] Attends Yazidism of their Charley [x] Believes in Prayer [x] Reads Bible or Hoahaoism materials [] There are Spiritual issues to be addressed Lining Scrubber Interventions [x] Prayer [x] Active listening x[] Non-anxious presence [x] Spiritual/emotional support [] Crisis/trauma care [] Spiritual counseling [] Bereavement support [] Provided bereavement packet [] Provided Bible/devotional materials [] Provided toy/stuffed animal, coloring book to patient or family member [] Provided Communion [] Anointing/Lead [] Salvation [x] Completed spiritual assessment [] Other: Impact on Illness or Injury [] Angry [] Fearful [] Anxious [] Often cries [] Exhaustion [] Unable to work [] Unable to attend shinto [] Unable to walk/stand [] Unable to read [] Unable to drive [] Unable to eat/drink [] Unable to sleep [] Unable to be with family [] Patient intubated [] Other: Summary Time spent with patient 15 min
[2021-08-04] MEDS: atenolol 50 mg Tablet 25 MG PO (11:13)
[2021-08-04] MEDS: diclofenac 1% Topical Gel 100 gm 1 APPLIC TOPICAL ×4 (11:13→23:03)
--- NOTE | 2021-08-04 12:44 | PM.CONSULT ---
Providers/Reason For Consult Consulting Physician/Specialty*: General Surgery Dr. Delarosa Reason for Consult*: GI bleed Attending Physician: Santos Madison MD Primary Care Provider: Kalani Guillaume MD History of Present Illness History of Present Illness Juan M Sierra is a 81 year old male who presented to the ER last night with sudden onset of painless bleeding per rectum. Patient's hemoglobin is stable around 11 and he was not hypotensive but due to the large amount of bloody bowel movements he was admitted for observation. Patient is on Xarelto. No family for colon cancer, no prior colonoscopy. He denies any constipation though has diarrhea occasionally. No prior episodes of bleeding per rectum. Review of Systems General: Reports: 10 or more systems reviewed and unremarkable except in HPI and below Medications/Allergies Home Medications Medication Instructions Recorded Confirmed Last Taken Type Vitamin D3 2 cap PO BID 04/23/20 08/04/21 Unknown History albuterol sulfate 2.5 mg INHALATION QID PRN 04/23/20 08/04/21 04/23/20 History aspirin 81 mg tablet,delayed 81 mg PO DAILY 04/23/20 08/04/21 Unknown History release cilostazol 100 mg tablet 100 mg PO BID 04/23/20 08/04/21 04/23/20 History clonazepam 0.5 mg tablet 0.5 mg PO Q12H PRN 04/23/20 08/04/21 Unknown History garlic 2 tab PO BID 04/23/20 08/04/21 Unknown History isosorbide mononitrate 60 mg 60 mg PO DAILY 04/23/20 08/04/21 04/23/20 History tablet,extended release 24 hr nitroglycerin 0.4 mg sublingual 0.4 mg SUBLINGUAL Q5M PRN 04/23/20 08/04/21 Unknown History tablet (Nitrostat) rivaroxaban 2.5 mg tablet (Xarelto) 2.5 mg PO BID 04/23/20 08/04/21 04/23/20 History rosuvastatin 20 mg tablet 20 mg PO DAILY 04/23/20 08/04/21 Unknown History tamsulosin 0.4 mg capsule 0.4 mg PO DAILY 04/23/20 08/04/21 04/23/20 History vitamin B complex 1 tab PO BID 04/23/20 08/04/21 Unknown History fluticasone propionate 50 1 spray INTRANASAL BID 30 Days #16 04/10/21 08/04/21 Unknown Rx mcg/actuation nasal g spray,suspension (Flonase Allergy Relief) amlodipine 5 mg tablet 5 mg PO DAILY 05/12/21 08/04/21 Unknown History atenolol 25 mg tablet 25 mg PO DAILY 05/12/21 08/04/21 Unknown History calcium carb-vit [id number] 1 tab PO DAILY 05/12/21 08/04/21 Unknown History 333 mg-200 unit-133 mg-5 mg tablet diphenhydramine 25 1 tab PO Q6H PRN 05/12/21 08/04/21 Unknown History mg-acetaminophen 500 mg tablet (Tylenol PM Extra Strength) indomethacin 25 mg capsule 25 mg PO TID 05/12/21 08/04/21 Unknown History omega-3 fatty acids 1,000 mg 1,000 mg PO DAILY 05/12/21 08/04/21 Unknown History capsule (Super [place]lim[place]-3) triamcinolone acetonide 0.1 % 1 applic TOPICAL DAILY 05/12/21 08/04/21 Unknown History topical cream albuterol sulfate 90 mcg/actuation 2 puff INHALATION QID PRN 30 Days 05/15/21 08/04/21 Unknown Rx aerosol inhaler #18 g diclofenac sodium 1 % topical gel 4 g TOPICAL QID #100 g 05/29/21 08/04/21 Unknown Rx (Voltaren Arthritis Pain) prednisone 5 mg tablet See Rx Instructions PO DAILY #60 05/29/21 08/04/21 Unknown Rx tab Symbicort 160 mcg-4.5 See Rx Instructions .ROUTE 06/23/21 08/04/21 Unknown Rx mcg/actuation HFA aerosol inhaler .COMPLEX #11 g NS (budesonide-formoterol) sulfasalazine 500 mg tablet 0.5 g PO DAILY #30 tab 07/03/21 08/04/21 Unknown Rx gabapentin 100 mg capsule 100 mg PO DAILY #30 cap 07/04/21 08/04/21 Unknown Rx allopurinol 300 mg tablet 300 mg PO DAILY 08/04/21 08/04/21 Unknown History ascorbic acid (vitamin C) 500 mg 250 mg PO BID 08/04/21 08/04/21 Unknown History tablet (Vitamin C) cranberry 400 mg capsule 400 mg PO DAILY 08/04/21 08/04/21 Unknown History elderberry fruit 460 mg-elderberry 1 cap PO BID 08/04/21 08/04/21 Unknown History flower 115 mg capsule fexofenadine 60 mg tablet 60 mg PO BID 08/04/21 08/04/21 Unknown History furosemide 20 mg tablet 20 mg PO PRN PRN 08/04/21 08/04/21 Unknown History lansoprazole 15 mg capsule,delayed 15 mg PO DAILY 08/04/21 08/04/21 Unknown History release multivitamin with minerals 1 tab PO DAILY 08/04/21 08/04/21 Unknown History Allergies Allergy/AdvReac Type Severity Reaction Status Date / Time iodine Allergy ALGY-Bliste Verified 08/04/21 08:58 r morphine Allergy ALGY-Rash Verified 08/04/21 08:58 povidone-iodine Allergy Unknown Verified 08/04/21 08:58 [From Betadine] soap [From Betadine] Allergy Unknown Verified 08/04/21 08:58 Current Medications Generic Name Dose Route Start Last Admin Trade Name Sgq PRN Reason Stop Dose Admin Albuterol/Ipratropium 3 ml 08/04/21 09:00 08/04/21 08:08 Ipratropium-Albuterol 3 Ml Neb INHALATION 3 ml Q6H NORMAN Administration Atenolol 25 mg 08/04/21 09:00 08/04/21 11:13 Atenolol 50 Mg Tablet PO 25 mg DAILY NORMAN Administration Atorvastatin Calcium 80 mg 08/04/21 09:00 08/04/21 08:05 Atorvastatin 40 Mg Tablet PO Not Given DAILY [facility] Diclofenac Sodium 1 applic 08/04/21 09:00 08/04/21 11:13 Diclofenac 1% Topical Gel 100 Gm TOPICAL 1 applic QID NORMAN Administration Gabapentin 100 mg 08/04/21 09:00 08/04/21 08:05 Gabapentin 100 Mg Capsule PO Not Given DAILY NORMAN Sodium Chloride 1,000 mls @ 75 mls/hr 08/04/21 06:15 08/04/21 06:55 Sodium Chloride 0.9% IV 75 mls/hr .[id number] NORMAN Administration Pantoprazole Sodium 40 mg 08/04/21 06:15 08/04/21 08:15 Pantoprazole 40 Mg Sdv IVP 40 mg Q12H NORMAN Administration Tamsulosin HCl 0.4 mg 08/04/21 09:00 02/21/22 09:37 Tamsulosin 0.4 Mg Capsule PO Not Given DAILY NORMAN PFSH Acute PFSH: Medical History CHF (congestive heart failure) CKD (chronic kidney disease) Peripheral vascular disease Pneumonia due to COVID-19 virus Surgical History H/O shoulder replacement History of right hip replacement Family History Sister Cancer Hyperlipidemia Hypertension Rheumatoid arthritis Mother Hyperlipidemia Hypertension Rheumatoid arthritis Father Hyperlipidemia Hypertension Stroke Rheumatoid arthritis Brother Hyperlipidemia Hypertension Heart attack Rheumatoid arthritis Denies family history of Diabetes Lupus Social History Quit status (tobacco): has quit using tobacco Year quit tobacco: 1989 - 4PPD x 30 Years Second hand smoke exposure: Yes Smoking risk assessment/counseling performed?: No Alcohol intake: current Alcohol intake frequency: few times a week Alcohol type: wine Desire information about alcohol rehabilitation?: No Counseling given: No Desire information about substance/drug rehabilitation?: No Counseling given: No Lives independently: Yes Household members: spouse Marital status: service: Yes Current occupational status: retired History of recent travel: No Current gender identity: Male Vitals/I&O/Wt Last Vital Signs Temp 98.9 F 08/04/21 07:09 Pulse 81 08/04/21 11:59 Resp 14 08/04/21 11:59 BP 128/68 08/04/21 11:59 Pulse Ox 95 08/04/21 11:59 Weight last 48 hrs Weight 180 lb Physical Exam Narrative: HEENT: Normocephalic Eye: Sclera /conjunctiva normal Abdomen: Soft to palpation, nontender, nondistended Neurological: Oriented to place person and time Skin: Intact, no lesions appreciated on gross exam Data : 08/04/21 08:00 08/04/21 04:00 A&P Assessment and plan (1) Acute lower GI bleedin-year-old male with hematochezia since last night. Patient is hemodynamically stable. He is on Xarelto. 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
--- NOTE | 2021-08-04 13:13 | PM.MISC ---
Miscellaneous Note Purpose of Documentation: Cover note Note: Patient seen multiple times today. Discussed multiple times with the family members regarding plan of care. Hemoglobin today morning has remained stable at 10. CT abdomen pelvis results appreciated. Patient to undergo bowel prep as per surgical team for possible colonoscopy tomorrow. Hemoglobin hematocrit every 6 hour. Doppler lower limb pulses every shift. Holding off on Xarelto, cilostazol and aspirin currently. Continue with prednisone. Monitor vitals. Clear liquid diet, n.p.o. after midnight.
[2021-08-04 14:23] LABS: Hematocrit 31.6 % (42.0-52.0); Hemoglobin 9.5 g/dL (11.7-16.6)
[2021-08-04] MEDS: peg /e-lyte soln 4,000 mL Btl 4000 ML PO (15:15)
[2021-08-04 17:37] LABS: Adenovirus Not Detected (NOT DETECT); Chlamydia Pneumoniae Not Detected (NOT DETECT); Coronavirus 229E,HKU1,NL63,OC4 Not Detected (NOT DETECT); Human Metapneumovirus Not Detected (NOT DETECT); Human Rhinovirus/Enterovirus Not Detected (NOT DETECT); Influenza A Not Detected (NOT DETECT); Influenza A H1 Not Detected (NOT DETECT); Influenza A H1-2009 Not Detected (NOT DETECT); Influenza A H3 Not Detected (NOT DETECT); Influenza B Not Detected (NOT DETECT); Mycoplasma Pneumoniae Not Detected (NOT DETECT); Parainfluenza Virus Type 1 Not Detected (NOT DETECT); Parainfluenza Virus Type 2 Not Detected (NOT DETECT); Parainfluenza Virus Type 3 Not Detected (NOT DETECT); Parainfluenza Virus Type 4 Not Detected (NOT DETECT); Respiratory Syncytial Virus A Not Detected (NOT DETECT); Respiratory Syncytial Virus B Not Detected (NOT DETECT); SARS-COV-2 Not Detected (NOT DETECT)
[2021-08-04 19:49] LABS: Hematocrit 34.3 % (42.0-52.0); Hemoglobin 10.5 g/dL (11.7-16.6)
[2021-08-05] VITALS (17 sets, daily range): BP systolic 92–155; BP diastolic 48–83; PULSE 71–106; RESP 14–18; TEMP 36.7–37.8; O2SAT 90–99
[2021-08-05] MEDS: ipratropium-albuterol 3 mL Neb INHALATION ×4 (03:21→22:07)
[2021-08-05] MEDS: sodium chloride 0.9% 1,000 ML 75 ML IV ×2 (04:45→23:45)
[2021-08-05] MEDS: acetaminophen 325 mg Tablet 650 MG PO (04:56)
[2021-08-05 05:29] LABS: Basophils % 0.3 %; Eosinophils # 0.1 10^3/uL (0.0-0.8); Eosinophils % 1.3 %; Hematocrit 31.6 % (42.0-52.0); Hemoglobin 9.7 g/dL (11.7-16.6); Lymphocytes # 0.7 10^3/uL (0.8-4.8); Lymphocytes % 9.7 %; Mean Corpuscular HGB Conc 30.7 g/dL (30.0-36.0); Mean Corpuscular Hemoglobin 29.5 pg (28.0-34.0); Monocytes # 0.4 10^3/uL (0.2-0.9); Monocytes % 5.5 %; Neutrophils # 6.13 10^3/uL (1.8-7.7); Neutrophils % 82.5 %; Nucleated Red Blood Cells % 0 %; Platelet Count 166 10^3/cmm (130-400); Red Blood Count 3.29 10^6/uL (4.1-5.3); Red Cell Distribution Width 17.8 % (12.1-15.1); White Blood Count 7.4 10^3/uL (4.0-10.0)
[2021-08-05 05:49] LABS: Alanine Aminotransferase 20 U/L (0-41); Albumin Level 4.1 g/dL (3.5-5.2); Alkaline Phosphatase 63 IU/L (40-130); Anion Gap 18.2 (5-19); Aspartate Amino Transferase 47 U/L (0-40); Blood Urea Nitrogen 21 mg/dL (8-23); Calcium 9.1 mg/dL (8.5-10.5); Carbon Dioxide 22 mmol/L (22-29); Chloride 106 mmol/L (98-107); Globulin 1.9 g/dL (1.3-4.6); Glucose 95 mg/dL (65-115); Osmolality Calculated 297 mOsm/kg (285-295); Potassium 4.2 mmol/L (3.5-5.1); Sodium 142 mmol/L (136-145); Total Bilirubin 0.5 mg/dL (0.15-1.2)
[2021-08-05] MEDS: atorvastatin 40 mg Tablet 80 MG PO (09:15)
[2021-08-05] MEDS: gabapentin 100 mg Capsule PO (09:15)
[2021-08-05] MEDS: tamsulosin 0.4 mg Capsule PO (09:15)
[2021-08-05] MEDS: atenolol 50 mg Tablet 25 MG PO (09:17)
[2021-08-05] MEDS: diclofenac 1% Topical Gel 100 gm 1 APPLIC TOPICAL ×2 (09:17→20:18)
[2021-08-05] MEDS: predniSONE 5 mg Tablet PO (09:22)
[2021-08-05] MEDS: sodium chloride 0.9% 1,000 ML 30 ML IV (11:47)
--- NOTE | 2021-08-05 11:49 | P.ANESASSM_ITS ---
Pre-Anesthetic Assessment Height/Weight: Height 1.75 m Weight 81.647 kg Temp Pulse Resp BP Pulse Ox 98.1 F 88 16 139/75 97 08/05/21 11:41 08/05/21 11:41 08/05/21 11:41 08/05/21 11:41 08/05/21 11:41 Preop Diagnosis: GI bleed Operation Date: 08/05/21 12:00 Proposed Procedures p Colonoscopy(Not Applicable) - Ezekiel Delarosa MD Familial anesthetic complications: Hip replacement 2003 didnt wake up adverse reaction to morphine per . Last intake: Intake Last Liquid Date 08/03/21 Last Liquid Time 21:00 Last Solid Date 08/03/21 Last Solid Time 21:00 Social Alcohol and No tobacco Hx of 4ppd stopped 1980s pack(s) per day Airway Submandibular: within normal limits Cervical ROM: within normal limits Mallampati: Class I Dentition: false Pulmonary Chronic Obstructive Pulmonary Disease, Exertional Dyspnea and Shortness of Breath CV/HEM Coronary Artery Disease, Congestive Heart Failure, Myocardial Infarction and Peripheral Vascular Disease cardiac stents X2 2004 EF 40% per Dr. Macias note Admitting Supervisor Dr. Gimenez follow up visit in August Severe PVD 2 stents in left leg and total obstruction in Right per . Mild AAA currently just monitoring per Dr. Gimenez. Hepatic None reported GI None reported Metabolic None reported Musc/skel Rheumatoid Arthritis and Weakness uses hinojosa METS< 4 Neuropsych Anxiety, Depression and Neuropathy Anesthetic Plan ASA status: 3 Anesthesia: Anesthesia Evaluation and MAC Medications/Allergies Home Medications Medication Instructions Recorded Confirmed Last Taken Type Vitamin D3 2 cap PO BID 04/23/20 08/04/21 Unknown History albuterol sulfate 2.5 mg INHALATION QID PRN 04/23/20 08/04/21 04/23/20 History aspirin 81 mg tablet,delayed 81 mg PO DAILY 04/23/20 08/04/21 Unknown History release cilostazol 100 mg tablet 100 mg PO BID 04/23/20 08/04/21 04/23/20 History clonazepam 0.5 mg tablet 0.5 mg PO Q12H PRN 04/23/20 08/04/21 Unknown History garlic 2 tab PO BID 04/23/20 08/04/21 Unknown History isosorbide mononitrate 60 mg 60 mg PO DAILY 04/23/20 08/04/21 04/23/20 History tablet,extended release 24 hr nitroglycerin 0.4 mg sublingual 0.4 mg SUBLINGUAL Q5M PRN 04/23/20 08/04/21 Unknown History tablet (Nitrostat) rivaroxaban 2.5 mg tablet (Xarelto) 2.5 mg PO BID 04/23/20 08/04/21 04/23/20 History rosuvastatin 20 mg tablet 20 mg PO DAILY 04/23/20 08/04/21 Unknown History tamsulosin 0.4 mg capsule 0.4 mg PO DAILY 04/23/20 08/04/21 04/23/20 History vitamin B complex 1 tab PO BID 04/23/20 08/04/21 Unknown History fluticasone propionate 50 1 spray INTRANASAL BID 30 Days #16 04/10/21 08/04/21 Unknown Rx mcg/actuation nasal g spray,suspension (Flonase Allergy Relief) amlodipine 5 mg tablet 5 mg PO DAILY 05/12/21 08/04/21 Unknown History atenolol 25 mg tablet 25 mg PO DAILY 05/12/21 08/04/21 Unknown History calcium carb-vit [id number] 1 tab PO DAILY 05/12/21 08/04/21 Unknown History 333 mg-200 unit-133 mg-5 mg tablet diphenhydramine 25 1 tab PO Q6H PRN 05/12/21 08/04/21 Unknown History mg-acetaminophen 500 mg tablet (Tylenol PM Extra Strength) indomethacin 25 mg capsule 25 mg PO TID 05/12/21 08/04/21 Unknown History omega-3 fatty acids 1,000 mg 1,000 mg PO DAILY 05/12/21 08/04/21 Unknown History capsule (Super [place]-3) triamcinolone acetonide 0.1 % 1 applic TOPICAL DAILY 05/12/21 08/04/21 Unknown History topical cream albuterol sulfate 90 mcg/actuation 2 puff INHALATION QID PRN 30 Days 05/15/21 08/04/21 Unknown Rx aerosol inhaler #18 g diclofenac sodium 1 % topical gel 4 g TOPICAL QID #100 g 05/29/21 08/04/21 Unknown Rx (Voltaren Arthritis Pain) prednisone 5 mg tablet See Rx Instructions PO DAILY #60 05/29/21 08/04/21 Unknown Rx tab Symbicort 160 mcg-4.5 See Rx Instructions .ROUTE 06/23/21 08/04/21 Unknown Rx mcg/actuation HFA aerosol inhaler .COMPLEX #11 g NS (budesonide-formoterol) sulfasalazine 500 mg tablet 0.5 g PO DAILY #30 tab 07/03/21 08/04/21 Unknown Rx gabapentin 100 mg capsule 100 mg PO DAILY #30 cap 07/04/21 08/04/21 Unknown Rx allopurinol 300 mg tablet 300 mg PO DAILY 08/04/21 08/04/21 Unknown History ascorbic acid (vitamin C) 500 mg 250 mg PO BID 08/04/21 08/04/21 Unknown History tablet (Vitamin C) cranberry 400 mg capsule 400 mg PO DAILY 08/04/21 08/04/21 Unknown History elderberry fruit 460 mg-elderberry 1 cap PO BID 08/04/21 08/04/21 Unknown History flower 115 mg capsule fexofenadine 60 mg tablet 60 mg PO BID 08/04/21 08/04/21 Unknown History furosemide 20 mg tablet 20 mg PO PRN PRN 08/04/21 08/04/21 Unknown History lansoprazole 15 mg capsule,delayed 15 mg PO DAILY 08/04/21 08/04/21 Unknown History release multivitamin with minerals 1 tab PO DAILY 08/04/21 08/04/21 Unknown History Allergies Allergy/AdvReac Type Severity Reaction Status Date / Time iodine Allergy ALGY-Bliste Verified 08/04/21 08:58 r morphine Allergy ALGY-Rash Verified 08/04/21 08:58 povidone-iodine Allergy Unknown Verified 08/04/21 08:58 [From Betadine] soap [From Betadine] Allergy Unknown Verified 08/04/21 08:58 Current Medications Generic Name Dose Route Start Last Admin Trade Name Freq PRN Reason Stop Dose Admin Acetaminophen 650 mg 08/04/21 06:12 08/05/21 04:56 Acetaminophen 325 Mg Tablet PO 650 mg Q6H PRN Administration Mild/Mod Pain Or Temp >/= 101 Albuterol/Ipratropium 3 ml 08/04/21 09:00 08/05/21 08:02 Ipratropium-Albuterol 3 Ml Neb INHALATION 3 ml Q6H NORMAN Administration Atenolol 25 mg 08/04/21 09:00 08/05/21 09:17 Atenolol 50 Mg Tablet PO 25 mg DAILY NORMAN Administration Atorvastatin Calcium 80 mg 08/04/21 09:00 08/05/21 09:15 Atorvastatin 40 Mg Tablet PO 80 mg DAILY NORMAN Administration Diclofenac Sodium 1 applic 08/04/21 09:00 08/05/21 09:17 Diclofenac 1% Topical Gel 100 Gm TOPICAL 1 applic QID NORMAN Administration Gabapentin 100 mg 08/04/21 09:00 08/05/21 09:15 Gabapentin 100 Mg Capsule PO 100 mg DAILY NORMAN Administration Sodium Chloride 1,000 mls @ 75 mls/hr 08/04/21 06:15 08/05/21 04:45 Sodium Chloride 0.9% IV 75 mls/hr .[id number] NORMAN Administration Sodium Chloride 1,000 mls @ 30 mls/hr 08/04/21 12:42 08/04/21 20:25 Sodium Chloride 0.9% IV 08/05/21 12:41 Not Given .Q24H ONE Sodium Chloride 1,000 mls @ 30 mls/hr 08/05/21 11:45 08/05/21 11:47 Sodium Chloride 0.9% IV 08/06/21 11:44 30 mls/hr .Q24H NORMAN Administration Pantoprazole Sodium 40 mg 08/04/21 06:15 08/05/21 09:51 Pantoprazole 40 Mg Sdv IVP Not Given Q12H NORMAN Prednisone 5 mg 08/05/21 09:00 08/05/21 09:22 Prednisone 5 Mg Tablet PO 5 mg DAILY NORMAN Administration Tamsulosin HCl 0.4 mg 08/04/21 09:00 08/05/21 09:15 Tamsulosin 0.4 Mg Capsule PO 0.4 mg DAILY NORMAN Administration PFSH Anesthesia Medical History CHF (congestive heart failure) CKD (chronic kidney disease) Peripheral vascular disease Pneumonia due to COVID-19 virus Surgical History H/O shoulder replacement History of right hip replacement Family History Sister Cancer Hyperlipidemia Hypertension Rheumatoid arthritis Mother Hyperlipidemia Hypertension Rheumatoid arthritis Father Hyperlipidemia Hypertension Stroke Rheumatoid arthritis Brother Hyperlipidemia Hypertension Heart attack Rheumatoid arthritis Denies family history of Diabetes Lupus Social History Quit status (tobacco): has quit using tobacco Year quit tobacco: 1989 - 4PPD x 30 Years Second hand smoke exposure: Yes Smoking risk assessment/counseling performed?: No Alcohol intake: current Alcohol intake frequency: few times a week Alcohol type: wine Desire information about alcohol rehabilitation?: No Counseling given: No Desire information about substance/drug rehabilitation?: No Counseling given: No Lives independently: Yes Household members: spouse Marital status: service: Yes Current occupational status: retired History of recent travel: No Current gender identity: Male Data Anesthesia : 08/05/21 04:46 08/05/21 04:46 Short CBC 08/04/21 08/04/21 08/04/21 Range/Units 04:00 08:00 14:10 WBC 6.4 (4.0-10.0) 10^3/uL Hgb 11.1 L 10.0 L 9.5 L (11.7-16.6) g/dL Hct 36.4 L 33.2 L 31.6 L (42.0-52.0) % MCV 98.4 H (80-94) fl Plt Count 171 (130-400) 10^3/cmm Neut % (Auto) 64.3 % Neut # (Auto) 4.08 (1.8-7.7) 10^3/uL 08/04/21 08/05/21 Range/Units 19:41 04:46 WBC 7.4 (4.0-10.0) 10^3/uL Hgb 10.5 L 9.7 L (11.7-16.6) g/dL Hct 34.3 L 31.6 L (42.0-52.0) % MCV 96.0 H (80-94) fl Plt Count 166 (130-400) 10^3/cmm Neut % (Auto) 82.5 % Neut # (Auto) 6.13 (1.8-7.7) 10^3/uL BMP 08/04/21 08/05/21 04:00 04:46 Sodium 137 142 Potassium 4.2 4.2 Chloride 103 106 Carbon Dioxide 23 22 BUN 33 H 21 Creatinine 2.2 H 1.5 H Glucose 95 95 Calcium 9.2 9.1 Liver Function 08/04/21 08/05/21 Range/Units 04:00 04:46 Total Bilirubin 0.4 0.5 (0.15-1.2) mg/dL AST 29 47 H (0-40) U/L ALT 18 20 (0-41) U/L Alkaline Phosphatase 77 63 (40-130) IU/L Albumin 4.2 4.1 (3.5-5.2) g/dL Blood Bank 08/04/21 04:00 Blood Type O Positive Rho(D) Type Positive Antibody Screen Negative COVID Results 08/04/21 15:25 Coronavirus 229E (PCR) Not detected SARS-CoV-2 (PCR) Not detected Coags 08/04/21 04:00 PT 14.70 INR 1.12 Cardiac Studies: No Data to Display
--- NOTE | 2021-08-05 13:11 | USCV_ITS ---
Juan M Sierra Age: 81 Gender: M : 1940 Exam Date: 08/05/2021 14:16 Ordering Phys: Santos Madison MD Technologist: ATIF Exam Location: [facility] – [place] Indication: CAD BP: 131 / 72 HR: 78 Rhythm: Sinus Technical Quality: Adequate MEASUREMENTS (Male / Female) Normal Values 2D ECHO LV Diastolic Diameter PLAX 4.6 cm 4.2 - 5.9 / 3.9 - 5.3 cm LV Systolic Diameter PLAX 3.0 cm IVS Diastolic Thickness 1.4 cm 0.6 - 1.0 / 0.6 - 0.9 cm IVS Systolic Thickness 2.0 cm LVPW Diastolic Thickness 1.5 cm 0.6 - 1.0 / 0.6 - 0.9 cm LVPW Systolic Thickness 1.8 cm RV Chamber Size 2.9 cm LVOT Diameter 2.0 cm LV Ejection Fraction 2D Teich 64.0 % LV Ejection Fraction MOD 2C 38.4 % LV Ejection Fraction 2C AL 39.8 % LA Diameter 3.5 cm LA Width 3.4 cm LA Height 5.8 cm RA Width 2.8 cm RA Height 5.9 cm Aorta at Sinotubular Diameter 2.9 cm M-MODE Aortic Annulus Diameter 4.1 cm LA Ao Ratio MM 0.9 MV E Point Septal Separation 0.3 cm DOPPLER AV Peak Velocity 107.0 cm/s LVOT Peak Velocity 84.0 cm/s AV Area Cont Eq vti 2.6 cm squared AV Area Cont Eq pk 2.5 cm squared MV Area PHT 5.0 cm squared MV E' Velocity 126.0 cm/s TR Peak Velocity 264.3 cm/s TR Peak Gradient 27.9 mmHg Right Atrial Pressure 3.0 mmHg Pulmonary Artery Systolic Pressu 30.9 mmHg PV Peak Velocity 84.0 cm/s RV Acceleration Time 0.1 s RV Ejection Time 0.3 s RV AcT/ET 0.3 FINDINGS Left Ventricle Normal left ventricular size and systolic function, EF 55%. Mild diffuse hypokinesia of the inferolateral wall. Right Ventricle The right ventricle is normal in size and function. Right Atrium The right atrium is normal in size. Left Atrium The left atrium is normal in size. Mitral Valve Thickened mitral valve. Mild mitral annular calcification. Trace mitral valve regurgitation. Aortic Valve Thickened aortic valve. Tricuspid Valve Mild tricuspid valve regurgitation. Pulmonic Valve No gross abnormalities noted Pericardium No pericardial effusion. Aorta Normal ascending aorta dimension. CONCLUSIONS Normal left ventricular size and systolic function, EF 55%. Mild diffuse hypokinesia of the inferolateral wall. Thickened mitral valve. Mild mitral annular calcification. Mild tricuspid valve regurgitation. Thickened aortic valve. Trace mitral valve regurgitation. There is no pericardial effusion. There are no intracardiac masses. No previous study is available for comparison. Dr Shara Eckert MD [facility] (Electronically Signed) Final Date: 05 August 2021 19:35 S
--- NOTE | 2021-08-05 13:12 | PM.PN ---
Subjective Subjective: No acute events overnight. Today morning patient seen pre and post colonoscopy. As per my conversation with Dr. Delarosa there is colonic mass. Patient is scheduled for surgery tomorrow. Patient's hemoglobin has remained stable. Patient has been in hemodynamically stable and afebrile. Care discussed in detail with patient and at bedside. Vitals/I&O/Wt Last Vital Signs Temp 98.3 F 08/05/21 12:33 Pulse 85 08/05/21 12:53 Resp 18 08/05/21 12:53 BP 131/71 08/05/21 12:53 Pulse Ox 94 08/05/21 12:53 08/04/21 08/05/21 08/05/21 22:59 06:59 14:59 Intake Total 620 / 620 565 / 1185 400 / 400 Output Total 1200 / 1200 400 / 1600 Balance -580 / -580 165 / -415 400 / 400 Weight last 48 hrs Weight 81.647 kg Physical Exam Narrative: General: No acute distress, AO x3, pale, tired appearing HEENT: PERRLA, pupils bilaterally equal and reactive Chest: Normal vesicular breath sounds, no added sounds, equal good air entry bilaterally CVS: S1-S2 regular, no murmurs, no tachycardia, no gallops, no rubs Abdomen: Soft, nontender, no organomegaly, bowel sounds present Neuro: No focal deficits, no facial deformity, AO x3, power 5/5 in all limbs Data : 08/05/21 04:46 08/05/21 04:46 A&P Assessment and plan (1) Acute lower GI bleeding: Painless acute lower GI bleeding: Hemoglobin has remained stable. Cycle hemoglobin and hematocrit every 8 hours. Clear liquid diet, n.p.o. after midnight for OR tomorrow. Continue holding off on anticoagulation, cilostazol and aspirin for now. Transfuse if hemoglobin drops below 8. Protonix 40 mg twice daily. Status: Acute (2) CKD (chronic kidney disease): Baseline creatinine 1.5. Creatinine back to baseline today. Continue with gentle IV hydration. Medical reconciliation done for nephrotoxic drugs. Renal ultrasound appreciated. Status: Acute (3) Arthritis: continue prednisone 5 mg daily, topical diclofenac gel Status: Acute (4) Colonic mass: Plan for the OR tomorrow with surgical team. N.p.o. after midnight. Hold off on anticoagulation. Status: Acute Plan Hypertension: Goal blood pressure less than 140/90 Amici. Blood pressure at goal. Continue holding off on all antihypertensives other than atenolol currently. Full code. Clear liquid diet. SCDs for DVT prophylaxis. Protonix for help with PUD prophylaxis. 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
[2021-08-05 13:44] LABS: CA 125 6.9 U/mL (0-35)
--- NOTE | 2021-08-05 15:09 | ANE.PACU2 ---
Inpatient post-anesthesia follow up: Airway intact: Yes Vital signs: Temperature 98.3 F Pulse Rate 83 Respiratory Rate 18 Blood Pressure 131/71 Pulse Oximetry 94 Oxygen Delivery Me thod Room Air Oxygen Flow Rate 3 Fraction of Inspir ed Oxygen Hydration adequate: Yes Nausea and vomiting: No Pain level: 1 Mental status: Baseline
[2021-08-05 15:32] LABS: Carcinoembryonic Antigen 2.8 ng/mL (0.0-4.7)
--- NOTE | 2021-08-05 16:26 | PM.PN ---
Subjective Subjective: Patient has not had any further bleeding today, denies any abdominal pain. His creatinine is down to 1.5 Medications: Reviewed: Yes Vitals/I&O/Wt Last Vital Signs Temp 98.9 F 08/05/21 15:44 Pulse 80 08/05/21 15:44 Resp 14 08/05/21 15:44 BP 137/76 08/05/21 15:44 Pulse Ox 90 08/05/21 15:44 08/05/21 08/05/21 08/05/21 06:59 14:59 22:59 Intake Total 565 / 1185 400 / 400 Output Total 400 / 1600 Balance 165 / -415 400 / 400 Weight last 48 hrs Weight 180 lb Physical Exam Narrative: Abdomen: Soft, nontender, nondistended Data : 08/05/21 04:46 08/05/21 04:46 A&P Assessment and plan (1) Acute lower GI ble[age]-year-old male with hematochezia who was on Xarelto. Patient is hemodynamically stable. Creatinine is improved. CT abdomen pelvis had shown thickening of the descending colon with extensive calcification of the mesenteric vessels. Plan for colonoscopy under MAC today Procedure, risks, benefits and alternatives have been discussed with the patient who wishes to proceed with surgery. 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
[2021-08-05 19:14] LABS: Hematocrit 31.2 % (42.0-52.0); Hemoglobin 9.5 g/dL (11.7-16.6)
[2021-08-05] MEDS: magnesium citrate Btl 296 mL 150 ML PO (20:14)
[2021-08-05] MEDS: pantoprazole 40 mg SDV IVP (21:50)
[2021-08-06] VITALS (37 sets, daily range): BP systolic 128–155; BP diastolic 62–97; PULSE 60–94; RESP 9–30; TEMP 36.3–37.3; O2SAT 88–100
[2021-08-06] MEDS: ipratropium-albuterol 3 mL Neb INHALATION ×3 (03:47→20:25)
[2021-08-06 05:01] LABS: Basophils % 0.2 %; Eosinophils # 0.1 10^3/uL (0.0-0.8); Eosinophils % 2.7 %; Hematocrit 28.2 % (42.0-52.0); Hemoglobin 8.7 g/dL (11.7-16.6); Lymphocytes # 0.9 10^3/uL (0.8-4.8); Lymphocytes % 17.7 %; Mean Corpuscular HGB Conc 30.9 g/dL (30.0-36.0); Mean Corpuscular Volume 97.2 fl (80-94); Mean Platelet Volume 10.3 fL (7.4-10.4); Monocytes # 0.3 10^3/uL (0.2-0.9); Monocytes % 6.5 %; Neutrophils # 3.79 10^3/uL (1.8-7.7); Neutrophils % 71.9 %; Nucleated Red Blood Cells % 0 %; Platelet Count 124 10^3/cmm (130-400); Red Cell Distribution Width 18.1 % (12.1-15.1); White Blood Count 5.3 10^3/uL (4.0-10.0)
[2021-08-06 05:19] LABS: Alanine Aminotransferase 18 U/L (0-41); Albumin Level 3.5 g/dL (3.5-5.2); Alkaline Phosphatase 53 IU/L (40-130); Blood Urea Nitrogen 12 mg/dL (8-23); Calcium 8.8 mg/dL (8.5-10.5); Carbon Dioxide 21 mmol/L (22-29); Chloride 110 mmol/L (98-107); Globulin 1.9 g/dL (1.3-4.6); Glucose 105 mg/dL (65-115); Osmolality Calculated 292 mOsm/kg (285-295); Sodium 141 mmol/L (136-145); Total Bilirubin 0.5 mg/dL (0.15-1.2); Total Protein 5.4 g/dL (6.6-8.7)
[2021-08-06 05:21] LABS: Anion Gap 14.1 (5-19); Aspartate Amino Transferase 49 U/L (0-40); Potassium 4.1 mmol/L (3.5-5.1)
[2021-08-06 05:25] LABS: Slide Review Slide Review Perform
[2021-08-06] MEDS: atenolol 50 mg Tablet 25 MG PO (09:49)
[2021-08-06] MEDS: tamsulosin 0.4 mg Capsule PO (09:49)
[2021-08-06] MEDS: gabapentin 100 mg Capsule PO (09:49)
[2021-08-06] MEDS: atorvastatin 40 mg Tablet 80 MG PO (09:50)
[2021-08-06] MEDS: pantoprazole 40 mg SDV IVP ×2 (09:50→20:50)
[2021-08-06] MEDS: predniSONE 5 mg Tablet PO (09:50)
--- NOTE | 2021-08-06 10:24 | ANES.PREANE2 ---
Pre-Anesthetic Assessment Height/Weight: Height 1.75 m Weight 81.647 kg Temp Pulse Resp BP Pulse Ox 99.1 F 94 17 152/97 95 08/06/21 10:15 08/06/21 10:15 08/06/21 10:15 08/06/21 10:15 08/06/21 10:15 Preop Diagnosis: Sigmoid mass Operation Date: 08/05/21 12:00 Proposed Procedures p Colonoscopy(Not Applicable) - Ezekiel Delarosa MD Operation Date: 08/06/21 11:00 Proposed Procedures p Laparoscopic Possible Open Sigmoidectomy(Not Applicable) - Ezekiel Delarosa MD Familial anesthetic complications: None Was Beta Karen taken within 24 hours: N/A Was Clonidine taken within 24 hours: N/A Last intake: Intake Last Liquid Date 08/05/21 Last Liquid Time 22:00 Last Solid Date 08/03/21 Last Solid Time 19:00 Social No alcohol and No tobacco former smoker Exam alert, oriented x 3, clear to auscultation bilaterally and regular rate & rhythm Airway Cervical ROM: within normal limits Mallampati: Class II Dentition: false Pulmonary Chronic Obstructive Pulmonary Disease CV/HEM Coronary Artery Disease (stents in 2004), Congestive Heart Failure (most recent echo EF 55%), Myocardial Infarction and Peripheral Vascular Disease Chronic Renal Insufficiency Musc/skel Rheumatoid Arthritis Anesthetic Plan ASA status: 3 Anesthesia: General Risk of > 500 ml blood loss (7ml/kg in children): No Medications/Allergies Home Medications Medication Instructions Recorded Confirmed Last Taken Type Vitamin D3 2 cap PO BID 04/23/20 08/04/21 Unknown History albuterol sulfate 2.5 mg INHALATION QID PRN 04/23/20 08/04/21 04/23/20 History aspirin 81 mg tablet,delayed 81 mg PO DAILY 04/23/20 08/04/21 Unknown History release cilostazol 100 mg tablet 100 mg PO BID 04/23/20 08/04/21 04/23/20 History clonazepam 0.5 mg tablet 0.5 mg PO Q12H PRN 04/23/20 08/04/21 Unknown History garlic 2 tab PO BID 04/23/20 08/04/21 Unknown History isosorbide mononitrate 60 mg 60 mg PO DAILY 04/23/20 08/04/21 04/23/20 History tablet,extended release 24 hr nitroglycerin 0.4 mg sublingual 0.4 mg SUBLINGUAL Q5M PRN 04/23/20 08/04/21 Unknown History tablet (Nitrostat) rivaroxaban 2.5 mg tablet (Xarelto) 2.5 mg PO BID 04/23/20 08/04/21 04/23/20 History rosuvastatin 20 mg tablet 20 mg PO DAILY 04/23/20 08/04/21 Unknown History tamsulosin 0.4 mg capsule 0.4 mg PO DAILY 04/23/20 08/04/21 04/23/20 History vitamin B complex 1 tab PO BID 04/23/20 08/04/21 Unknown History fluticasone propionate 50 1 spray INTRANASAL BID 30 Days #16 04/10/21 08/04/21 Unknown Rx mcg/actuation nasal g spray,suspension (Flonase Allergy Relief) amlodipine 5 mg tablet 5 mg PO DAILY 05/12/21 08/04/21 Unknown History atenolol 25 mg tablet 25 mg PO DAILY 05/12/21 08/04/21 Unknown History calcium carb-vit [id number] 1 tab PO DAILY 05/12/21 08/04/21 Unknown History 333 mg-200 unit-133 mg-5 mg tablet diphenhydramine 25 1 tab PO Q6H PRN 05/12/21 08/04/21 Unknown History mg-acetaminophen 500 mg tablet (Tylenol PM Extra Strength) indomethacin 25 mg capsule 25 mg PO TID 05/12/21 08/04/21 Unknown History omega-3 fatty acids 1,000 mg 1,000 mg PO DAILY 05/12/21 08/04/21 Unknown History capsule (Super [place]-3) triamcinolone acetonide 0.1 % 1 applic TOPICAL DAILY 05/12/21 08/04/21 Unknown History topical cream albuterol sulfate 90 mcg/actuation 2 puff INHALATION QID PRN 30 Days 05/15/21 08/04/21 Unknown Rx aerosol inhaler #18 g diclofenac sodium 1 % topical gel 4 g TOPICAL QID #100 g 05/29/21 08/04/21 Unknown Rx (Voltaren Arthritis Pain) prednisone 5 mg tablet See Rx Instructions PO DAILY #60 05/29/21 08/04/21 Unknown Rx tab Symbicort 160 mcg-4.5 See Rx Instructions .ROUTE 06/23/21 08/04/21 Unknown Rx mcg/actuation HFA aerosol inhaler .COMPLEX #11 g NS (budesonide-formoterol) sulfasalazine 500 mg tablet 0.5 g PO DAILY #30 tab 07/03/21 08/04/21 Unknown Rx gabapentin 100 mg capsule 100 mg PO DAILY #30 cap 07/04/21 08/04/21 Unknown Rx allopurinol 300 mg tablet 300 mg PO DAILY 08/04/21 08/04/21 Unknown History ascorbic acid (vitamin C) 500 mg 250 mg PO BID 08/04/21 08/04/21 Unknown History tablet (Vitamin C) cranberry 400 mg capsule 400 mg PO DAILY 08/04/21 08/04/21 Unknown History elderberry fruit 460 mg-elderberry 1 cap PO BID 08/04/21 08/04/21 Unknown History flower 115 mg capsule fexofenadine 60 mg tablet 60 mg PO BID 08/04/21 08/04/21 Unknown History furosemide 20 mg tablet 20 mg PO PRN PRN 08/04/21 08/04/21 Unknown History lansoprazole 15 mg capsule,delayed 15 mg PO DAILY 08/04/21 08/04/21 Unknown History release multivitamin with minerals 1 tab PO DAILY 08/04/21 08/04/21 Unknown History Allergies Allergy/AdvReac Type Severity Reaction Status Date / Time iodine Allergy ALGY-Bliste Verified 08/04/21 08:58 r morphine Allergy ALGY-Rash Verified 08/04/21 08:58 povidone-iodine Allergy Unknown Verified 08/04/21 08:58 [From Betadine] soap [From Betadine] Allergy Unknown Verified 08/04/21 08:58 Current Medications Generic Name Dose Route Start Last Admin Trade Name Freq PRN Reason Stop Dose Admin Acetaminophen 650 mg 08/04/21 06:12 08/05/21 04:56 Acetaminophen 325 Mg Tablet PO 650 mg Q6H PRN Administration Mild/Mod Pain Or Temp >/= 101 Albuterol/Ipratropium 3 ml 08/04/21 09:00 08/06/21 09:49 Ipratropium-Albuterol 3 Ml Neb INHALATION 3 ml Q6H NORMAN Administration Atenolol 25 mg 08/04/21 09:00 08/06/21 09:49 Atenolol 50 Mg Tablet PO 25 mg DAILY NORMAN Administration Atorvastatin Calcium 80 mg 08/04/21 09:00 08/06/21 09:50 Atorvastatin 40 Mg Tablet PO 80 mg DAILY NORMAN Administration Diclofenac Sodium 1 applic 08/04/21 09:00 08/06/21 09:56 Diclofenac 1% Topical Gel 100 Gm TOPICAL Not Given QID NORMAN Gabapentin 100 mg 08/04/21 09:00 08/06/21 09:49 Gabapentin 100 Mg Capsule PO 100 mg DAILY NORMAN Administration Sodium Chloride 1,000 mls @ 75 mls/hr 08/04/21 06:15 08/05/21 23:45 Sodium Chloride 0.9% IV 75 mls/hr .[id number] NORMAN Administration Sodium Chloride 1,000 mls @ 30 mls/hr 08/05/21 11:45 08/05/21 12:49 Sodium Chloride 0.9% IV 08/06/21 11:44 Infused .Q24H NORMAN Infusion Pantoprazole Sodium 40 mg 08/04/21 06:15 08/06/21 09:50 Pantoprazole 40 Mg Sdv IVP 40 mg Q12H NORMAN Administration Prednisone 5 mg 08/05/21 09:00 08/06/21 09:50 Prednisone 5 Mg Tablet PO 5 mg DAILY NORMAN Administration Tamsulosin HCl 0.4 mg 08/04/21 09:00 08/06/21 09:49 Tamsulosin 0.4 Mg Capsule PO 0.4 mg DAILY NORMAN Administration PFSH Anesthesia Medical History CHF (congestive heart failure) CKD (chronic kidney disease) Peripheral vascular disease Pneumonia due to COVID-19 virus Surgical History H/O shoulder replacement History of right hip replacement Family History Sister Cancer Hyperlipidemia Hypertension Rheumatoid arthritis Mother Hyperlipidemia Hypertension Rheumatoid arthritis Father Hyperlipidemia Hypertension Stroke Rheumatoid arthritis Brother Hyperlipidemia Hypertension Heart attack Rheumatoid arthritis Denies family history of Diabetes Lupus Social History Quit status (tobacco): has quit using tobacco Year quit tobacco: 1989 - PPD x 30 Years Second hand smoke exposure: Yes Smoking risk assessment/counseling performed?: No Alcohol intake: current Alcohol intake frequency: few times a week Alcohol type: wine Desire information about alcohol rehabilitation?: No Counseling given: No Desire information about substance/drug rehabilitation?: No Counseling given: No Lives independently: Yes Household members: spouse Marital status: service: Yes Current occupational status: retired History of recent travel: No Current gender identity: Male Data Anesthesia : 08/06/21 04:38 08/06/21 04:38 Short CBC 08/04/21 08/04/21 08/05/21 Range/Units 14:10 19:41 04:46 WBC 7.4 (4.0-10.0) 10^3/uL Hgb 9.5 L 10.5 L 9.7 L (11.7-16.6) g/dL Hct 31.6 L 34.3 L 31.6 L (42.0-52.0) % MCV 96.0 H (80-94) fl Plt Count 166 (130-400) 10^3/cmm Neut % (Auto) 82.5 % Neut # (Auto) 6.13 (1.8-7.7) 10^3/uL 08/05/21 08/06/21 Range/Units 18:38 04:38 WBC 5.3 (4.0-10.0) 10^3/uL Hgb 9.5 L 8.7 L (11.7-16.6) g/dL Hct 31.2 L 28.2 L (42.0-52.0) % MCV 97.2 H (80-94) fl Plt Count 124 L (130-400) 10^3/cmm Neut % (Auto) 71.9 % Neut # (Auto) 3.79 (1.8-7.7) 10^3/uL BMP 08/05/21 08/06/21 04:46 04:38 Sodium 142 141 Potassium 4.2 4.1 Chloride 106 110 H Carbon Dioxide 22 21 L BUN 21 12 Creatinine 1.5 H 1.2 Glucose 95 105 Calcium 9.1 8.8 Liver Function 08/05/21 08/06/21 Range/Units 04:46 04:38 Total Bilirubin 0.5 0.5 (0.15-1.2) mg/dL AST 47 H 49 H (0-40) U/L ALT 20 18 (0-41) U/L Alkaline Phosphatase 63 53 (40-130) IU/L Albumin 4.1 3.5 (3.5-5.2) g/dL COVID Results 08/04/21 15:25 Coronavirus 229E (PCR) Not detected SARS-CoV-2 (PCR) Not detected Cardiac Studies: Echocardiogram 08/05/21
--- NOTE | 2021-08-06 11:20 | PM.PN ---
Subjective Subjective: no issues overnight Medications: Reviewed: Yes Vitals/I&O/Wt Last Vital Signs Temp 99.1 F 08/06/21 10:15 Pulse 94 08/06/21 10:15 Resp 17 08/06/21 10:15 BP 152/97 08/06/21 10:15 Pulse Ox 95 08/06/21 10:15 08/05/21 08/06/21 08/06/21 22:59 06:59 14:59 Intake Total 1600 / 1999 0 / 1999 Output Total 1000 / 1000 Balance 1600 / 1000 -1000 / 1000 Physical Exam Narrative: Abdomen: soft NT ND Data : 08/06/21 04:38 08/06/21 04:38 A&P Assessment and plan (1) Adenocarcinoma of sigmoid colon: s/p colonoscopy with biopsy for hematochezia. An obstructing sigmoid mass is noted with severe diverticulosis Pathology: Adenocarcinoma Plan for laparoscopic possible open sigmoidectomy with possible colostomy Procedure, risks, benefits and alternatives have been discussed with the patient who wishes to proceed with surgery. 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
[2021-08-06] MEDS: piperacillin-tazobactam 3.375 GM in sodium chloride 0.9% (plus) 50 ML IV ×2 (11:35→17:01)
--- NOTE | 2021-08-06 12:06 | PM.PN ---
Subjective Subjective: No events overnight. Patient seen prior to the OR today. Nervous. at bedside. had a lot of questions regarding the OR and subsequent recovery. We discussed the plan going forward. and patient verbalizes understanding. Otherwise has remained hemodynamically stable and afebrile. Medications: Reviewed: Yes Vitals/I&O/Wt Last Vital Signs Temp 99.1 F 08/06/21 10:15 Pulse 94 08/06/21 10:15 Resp 17 08/06/21 10:15 BP 152/97 08/06/21 10:15 Pulse Ox 95 08/06/21 10:15 08/05/21 08/06/21 08/06/21 22:59 06:59 14:59 Intake Total 1599 Output Total 999 Balance 1599 -999 Physical Exam Narrative: General: No acute distress, AO x3, pale, HEENT: PERRLA, pupils bilaterally equal and reactive Chest: Normal vesicular breath sounds, no added sounds, equal good air entry bilaterally CVS: S1-S2 regular, no murmurs, no tachycardia, no gallops, no rubs Abdomen: Soft, nontender, no organomegaly, bowel sounds present Neuro: No focal deficits, no facial deformity, AO x3, power 5/5 in all limbs Data : 08/06/21 04:38 08/06/21 04:38 A&P Assessment and plan (1) Acute lower GI bleeding: Painless acute lower GI bleeding: Hemoglobin 8.7 today. We will transfuse if drops less than 8. Check hemoglobin hematocrit every 12 hourly Continue holding off on anticoagulation, cilostazol and aspirin for now. Protonix 40 mg twice daily. Status: Acute (2) Colonic mass: OR today for colonic mass resection. NPO. Holding off on anticoagulation. Status: Acute (3) CKD (chronic kidney disease): MARION has resolved. Baseline creatinine 1.5. Creatinine back to baseline today. Continue with gentle IV hydration as patient is n.p.o Medical reconciliation done for nephrotoxic drugs. Renal ultrasound appreciated. Status: Acute (4) Arthritis: continue prednisone 5 mg daily, topical diclofenac gel Status: Acute (5) Peripheral vascular disease: Status: Acute Plan Hypertension: Goal blood pressure less than 140/90 Amici. Blood pressure at goal. Continue holding off on all antihypertensives other than atenolol currently. Full code. Clear liquid diet. SCDs for DVT prophylaxis. Protonix for help with PUD prophylaxis. 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
--- NOTE | 2021-08-06 16:10 | P.OP_ITS ---
Operative Report Date of procedure: August 06, 2021 Pre-op diagnosis: Adenocarcinoma sigmoid colon CEA: 2.8 CT abdomen pelvis: No evidence of metastatic disease Post-op diagnosis: Adenocarcinoma sigmoid colon with chronic diverticular disease No peritoneal carcinomatosis or liver lesions noted Procedure done: 1. Laparoscopic sigmoid colectomy with stapled 29 mm EEA anastomosis 2. Flexible sigmoidoscopy 3. Explantation of hernia mesh Specimens removed/disposition: 1. Sigmoid colon, distal and stapled 2. Descending colon segment, suture at the distal end 3. Proximal and distal donut from EEA anastomosis Surgeon: Ezekiel Delarosa Anesthesia: General Estimated blood loss (mL): 100 IV fluids (mL): 1,200 Urine output (mL): 300 Condition: stable Disposition: ICU Procedure: The patient was taken to the operating room, intubated under general anesthesia after IV antibiotic had been administered. The patient was placed in modified lithotomy position with shoulder support and the Soliz catheter was placed. The rectum was irrigated with diluted Betadine using red rubber catheter. The abdomen and the perineum was prepped and draped in a sterile manner. Using a 15 blade, a midline infraumbilical incision was made and using open Rosas technique the peritoneal cavity was entered, 12 mm port was placed and 15 mm of pneumoperitoneum was created. A 10 mm 30? scope was then introduced. 5 mm ports were placed in the left lower quadrant and in the right upper quadrant u nder direct visualization in the midclavicular line and and a 12 mm port was placed in the right lower quadrant. Examination of the colon revealed a a mass within the sigmoid colon which had been previously inked, no signs of liver lesions or peritoneal carcinomatosis. 20 cc of 0.5% Marcaine with 20 of saline mixed with 20 cc of Exparel was injected bilaterally for a TAP block under laparoscopic visualization. The patient was placed in steep Trendelenburg position and rotated to the right in order to place a small bowel loops in the right upper quadrant. The transverse colon was retracted superiorly. The junction between the descending colon and the sigmoid colon was identified. The inferior mesenteric artery was identified near its takeoff, the peritoneum opened and dissection was carried posterior to the artery until the ureter was identified. A medial to lateral dissection of the sigmoid mesocolon was performed. There were adhesions of the sigmoid colon to the abdominal wall which were taken down. The line of Toldt was opened along the descending colon up to the splenic flexure and the avascular plane was entered to mobilize the descending colon medially. The sigmoid me socolon was divided using Ligasure down to the proximal rectum to ensure there was at least 5 cm distal margin. 2 loads of 45 mm blue load [place] DREW stapler was introduced through the right lower quadrant port to divide the rectum distally. At this point it appeared that the descending colon reached up to the rectum and the midline umbilical incision was extended up, the pneumoperitoneum was released. There was mesh from prior umbilical hernia which was excised using electrocautery and a wound protector was placed and the divided sigmoid colon was exteriorized. A noncrushing bowel clamps were placed in the descending colon and an Autosuture pursestring was placed and the sigmoid colon was cut proximally but when I attempted to pass the EEA stapler there appeared to be a proximal s tricture from chronic diverticular disease and therefore another Autosuture was placed proximally on the descending colon and cut with a 10 blade and the descending colon was divided and the specimen removed from the operating field. Serial anal dilators were used and it was decided to proceed with the 29 mm EEA stapler. The anvil of the EEA stapler was introduced into the descending colon and tied down. The colon was introduced into the peritoneal cavity and the pneumoperitoneum was recreated. The anus was digitally dilated and the EEA stapler was introduced through the anal canal and the trocar passed through the previously created staple line and attached to the anvil after ensuring that there was no twisting of the mesentery. The EEA stapler was fired to create the stapled 29 mm end-to-end anastomosis and 2 intact doughnuts were retrieved which were sent as proximal margin and distal margin. A colonoscope was introduced and passed beyond the anastomosis after submerging the anastomosis under saline in the pelvis. The air leak test was negative. There was no significant bleeding noted from the staple line. The colonoscope was withdrawn. All 4 ports were removed under direct visualization and the fascia the midline was closed using #1 loop PDS. The fascia of the right lower quadrant port was closed using [id number] 0 Vicryl suture. The subcutaneous tissue was approximated using 3-0 Vicryl suture and skin was closed using running subcuticular 4-0 Monocryl suture and Dermabond. The patient was subsequently extubated and transferred to recovery room with a Soliz catheter in place.
[2021-08-06] MEDS: D5-NS 0.45% + KCL 20 mEq 20 MEQ/1,000 ML BAG 75 MEQ IV (17:01)
[2021-08-06] MEDS: diclofenac 1% Topical Gel 100 gm 1 APPLIC TOPICAL ×2 (17:01→20:50)
--- NOTE | 2021-08-06 17:12 | PC.NURSE ---
1531 Pt received from surgery. VSS. Pt confused. Unable to answer orientation questions correctly. at bedside, explained to her that pt is probably confused d/t meds in surgery and that it should improve shortly. 1700 Pt AAOX4. C/O abd pain 03/23. Allergic to morphine, 4mg morphine wasted with David CARRANZA. PO pain med given per orders. IVF started per orders. Will monitor.
[2021-08-06] MEDS: HYDROcodone-acetaminophen 5-325 mg Tablet 1 TAB PO (17:18)
[2021-08-06] MEDS: sennosides-docusate Tablet 1 TAB PO (17:19)
[2021-08-06 19:34] LABS: Basophils % 0.1 %; Hematocrit 28.3 % (42.0-52.0); Hemoglobin 8.5 g/dL (11.7-16.6); Lymphocytes # 0.2 10^3/uL (0.8-4.8); Lymphocytes % 2.6 %; Mean Corpuscular Hemoglobin 29.7 pg (28.0-34.0); Mean Platelet Volume 9.8 fL (7.4-10.4); Monocytes # 0.2 10^3/uL (0.2-0.9); Monocytes % 2.8 %; Neutrophils # 6.74 10^3/uL (1.8-7.7); Neutrophils % 93.9 %; Nucleated Red Blood Cells % 0 %; Platelet Count 129 10^3/cmm (130-400); Red Blood Count 2.86 10^6/uL (4.1-5.3); White Blood Count 7.2 10^3/uL (4.0-10.0)
[2021-08-06 20:12] LABS: Alanine Aminotransferase 16 U/L (0-41); Albumin Level 3.3 g/dL (3.5-5.2); Alkaline Phosphatase 49 IU/L (40-130); Blood Urea Nitrogen 14 mg/dL (8-23); Calcium 8.6 mg/dL (8.5-10.5); Carbon Dioxide 21 mmol/L (22-29); Chloride 109 mmol/L (98-107); Globulin 2.4 g/dL (1.3-4.6); Glucose 171 mg/dL (65-115); Osmolality Calculated 291 mOsm/kg (285-295); Sodium 138 mmol/L (136-145); Total Bilirubin 0.5 mg/dL (0.15-1.2); Total Protein 5.7 g/dL (6.6-8.7)
[2021-08-06 20:19] LABS: Anion Gap 12.8 (5-19); Aspartate Amino Transferase 37 U/L (0-40); Potassium 4.8 mmol/L (3.5-5.1)
[2021-08-07] VITALS (28 sets, daily range): BP systolic 119–157; BP diastolic 62–108; PULSE 46–101; RESP 13–24; TEMP 36.6–37.1; O2SAT 85–100
[2021-08-07] MEDS: piperacillin-tazobactam 3.375 GM in sodium chloride 0.9% (plus) 50 ML IV ×2 (00:35→08:47)
[2021-08-07] MEDS: HYDROcodone-acetaminophen 5-325 mg Tablet 1 TAB PO ×3 (03:12→21:07)
[2021-08-07] MEDS: guaiFENesin 600 mg Tablet PO ×2 (03:12→17:13)
[2021-08-07] MEDS: ipratropium-albuterol 3 mL Neb INHALATION ×4 (03:39→21:30)
[2021-08-07 04:44] LABS: Hematocrit 26.5 % (42.0-52.0); Hemoglobin 8.1 g/dL (11.7-16.6); Lymphocytes # 0.3 10^3/uL (0.8-4.8); Lymphocytes % 4.6 %; Mean Corpuscular HGB Conc 30.6 g/dL (30.0-36.0); Mean Corpuscular Hemoglobin 30.3 pg (28.0-34.0); Mean Corpuscular Volume 99.3 fl (80-94); Mean Platelet Volume 9.9 fL (7.4-10.4); Monocytes # 0.3 10^3/uL (0.2-0.9); Monocytes % 4.2 %; Neutrophils # 6.04 10^3/uL (1.8-7.7); Neutrophils % 90.5 %; Nucleated Red Blood Cells % 0 %; Platelet Count 137 10^3/cmm (130-400); Red Blood Count 2.67 10^6/uL (4.1-5.3); Red Cell Distribution Width 17.7 % (12.1-15.1); White Blood Count 6.7 10^3/uL (4.0-10.0)
[2021-08-07 05:00] LABS: Alanine Aminotransferase 14 U/L (0-41); Albumin Level 3.4 g/dL (3.5-5.2); Alkaline Phosphatase 50 IU/L (40-130); Anion Gap 12.7 (5-19); Aspartate Amino Transferase 28 U/L (0-40); Blood Urea Nitrogen 14 mg/dL (8-23); Calcium 8.5 mg/dL (8.5-10.5); Carbon Dioxide 22 mmol/L (22-29); Chloride 109 mmol/L (98-107); Globulin 1.7 g/dL (1.3-4.6); Glucose 161 mg/dL (65-115); Osmolality Calculated 292 mOsm/kg (285-295); Potassium 4.7 mmol/L (3.5-5.1); Sodium 139 mmol/L (136-145); Total Bilirubin 0.5 mg/dL (0.15-1.2); Total Protein 5.1 g/dL (6.6-8.7)
[2021-08-07] MEDS: D5-NS 0.45% + KCL 20 mEq 20 MEQ/1,000 ML BAG 75 MEQ IV ×2 (05:32→18:49)
[2021-08-07] MEDS: enoxaparin 40 mg/0.4 mL Syringe SUBCUT (05:33)
[2021-08-07] MEDS: atorvastatin 40 mg Tablet 80 MG PO (08:46)
[2021-08-07] MEDS: atenolol 50 mg Tablet 25 MG PO (08:46)
[2021-08-07] MEDS: sennosides-docusate Tablet 1 TAB PO ×2 (08:46→17:13)
[2021-08-07] MEDS: tamsulosin 0.4 mg Capsule PO (08:47)
[2021-08-07] MEDS: gabapentin 100 mg Capsule PO (08:47)
[2021-08-07] MEDS: pantoprazole 40 mg SDV IVP ×2 (08:47→20:59)
[2021-08-07] MEDS: diclofenac 1% Topical Gel 100 gm 1 APPLIC TOPICAL ×4 (08:48→20:52)
--- NOTE | 2021-08-07 09:24 | P.PN_ITS ---
Subjective Subjective: Patient was bradycardic last night but otherwise denies abdominal pain, nausea or vomiting Vitals/I&O/Wt Last Vital Signs Temp 98.7 F 08/07/21 03:00 Pulse 82 08/07/21 09:00 Resp 20 H 08/07/21 09:00 BP 154/83 08/07/21 09:00 Pulse Ox 98 08/07/21 09:00 08/06/21 08/07/21 08/07/21 22:59 06:59 14:59 Intake Total 1100 / 2138.75 988.75 / 2138.75 Output Total 300 / 1700 1400 / 1700 Balance 800 / 438.75 -411.25 / 438.75 Physical Exam Narrative: Abdomen: Soft, minimally tender, minimally distended, incision clean dry and intact Urinary Catheter Management: Soliz: Cath Placed During This Visit: yes Reason for Continuing Indwelling Catheter: Accurate Measurement of Urinary Output in Critically Ill Patients Urinary Catheter Date of Insertion: 08/06/21 Urinary Catheter Time of Insertion: 13:18 Data : 08/07/21 04:14 08/07/21 04:14 A&P Assessment and plan (1) S/P laparoscopic-assisted sigmoidectomy: 81-year-old male status post sigmoid colectomy with postop ileus DC Zosyn after 2 doses postop DC Soliz Start clear liquid diet Ambulate with physical therapy Protonix for GI prophylaxis Lovenox for DVT prophylaxis Senna S for bowel regimen Status: Acute Attestations Medical Necessity Statement*: As per primary Coding Level of Care Code 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
[2021-08-07] MEDS: amlodipine 5 mg Tablet PO (10:07)
--- NOTE | 2021-08-07 10:16 | PC.CHAP ---
Pastoral Care Encounter/Spiritual Assessment Type of Contact [] Declined air quality instrument specialist visit [] Patient/Family/Request visit [] Outpatient visit [] Follow-up visit [] Physician referral [] Code/Alert [x] Routine visit [] Staff referral [] Actively dying [] Patient sleeping [x] Family support [] [] Out of room [] Palliative care [] [x] Receiving care in room [] Pre-surgical visit [] Trauma [] Long length of stay [x] ICU visit [] Other: Relational/Emotional Strength [] Patient feels connected with others/family/visitors/staff [] Distress [] Loneliness/isolation [] Abandonment Spirituality of Patient [] Person of Charley [] Attends Methodist of their Charley [] Believes in Prayer [] Reads Bible or Rastafari materials [] There are Spiritual issues to be addressed Final Tester Interventions [x] Prayer [x] Active listening [x] Non-anxious presence [x] Spiritual/emotional support [] Crisis/trauma care [] Spiritual counseling [] Bereavement support [] Provided bereavement packet [] Provided Bible/devotional materials [] Provided toy/stuffed animal, coloring book to patient or family member [] Provided Communion [] Anointing/[place] [] Salvation [x] Completed spiritual assessment [] Other: Impact on Illness or Injury [] Angry [] Fearful [] Anxious [] Often cries [] Exhaustion [] Unable to work [] Unable to attend bahai [] Unable to walk/stand [] Unable to read [] Unable to drive [] Unable to eat/drink [] Unable to sleep [] Unable to be with family [] Patient intubated [] Other: Summary moved to ICU from 2nd floor after surgery....feeling well... Time spent with patient 10 min
--- NOTE | 2021-08-07 10:52 | PC.SOCIAL ---
IMM update IMM updated with patient. Copy Pg 2 provided. Verbalized an understanding. Initialled, dated, timed, and placed in chart.
--- NOTE | 2021-08-07 13:36 | P.PN_ITS ---
Subjective Subjective: Today morning states he is feeling a lot better. States he has no pain in his leg. For the first time. Denies any nausea, vomiting, headache. Tolerated colonic mass resection well yesterday. Has remained hemodynamically stable and afebrile. Patient episodes of bradycardia overnight most likely secondary to sleep apnea. Medications: Reviewed: Yes Vitals/I&O/Wt Last Vital Signs Temp 98.7 F 08/07/21 03:00 Pulse 78 08/07/21 13:00 Resp 18 08/07/21 13:00 BP 135/69 08/07/21 13:00 Pulse Ox 99 08/07/21 13:00 08/06/21 08/07/21 08/07/21 22:59 06:59 14:59 Intake Total 1100 / 1150 988.75 / 2138.75 240 / 240 Output Total 300 / 300 1400 / 1700 300 / 300 Balance 800 / 850 -411.25 / 438.75 -60 / -60 Physical Exam Narrative: General: No acute distress, AO x3, pale, HEENT: PERRLA, pupils bilaterally equal and reactive Chest: Normal vesicular breath sounds, no added sounds, equal good air entry bilaterally CVS: S1-S2 regular, no murmurs, no tachycardia, no gallops, no rubs Abdomen: Soft, nontender, no organomegaly, bowel sounds present Neuro: No focal deficits, no facial deformity, AO x3, power 5/5 in all limbs Urinary Catheter Management: Soliz: Cath Placed During This Visit: yes, but has since been removed by the nurse Reason for Continuing Indwelling Catheter: Decision to DC Catheter Urinary Catheter Date of Insertion: 08/06/21 Urinary Catheter Time of Insertion: 13:18 Date Urinary Catheter Removed: 08/07/21 Time Urinary Catheter Discontinued: 10:04 Data : 08/07/21 04:14 08/07/21 04:14 A&P Assessment and plan (1) Acute lower GI bleeding: Painless acute lower GI bleeding: Hemoglobin stable. We will transfuse if drops less than 8. Check hemoglobin daily. Continue holding off on anticoagulation, cilostazol and aspirin for now. Protonix 40 mg twice daily. Status: Acute (2) Colonic mass: Post colonic mass resection day 1. Anticoagulation, diet, physical therapy, pain medication as per surgical team. Started on Lovenox, clear liquid diet. DC Soliz catheter. Status: Acute (3) CKD (chronic kidney disease): MARION present on admission. Now has resolved. Baseline creatinine 1.5. Creatinine back to baseline today. Continue with gentle IV hydration. Medical reconciliation done for nephrotoxic drugs. Renal ultrasound appreciated. Status: Acute (4) Arthritis: Holding prednisone for now to facilitate postsurgical healing. We will monitor blood pressures. If blood pressures drop we will have to reintroduce prednisone. Status: Acute (5) Peripheral vascular disease: Status: Acute Plan Hypertension: Goal blood pressure less than 140/90 mmHg. Blood pressure at goal. Continue holding off on all antihypertensives except amlodipine. Continue with home dose of atenolol. Bradycardia: Most likely secondary to sleep apnea in setting of postanesthesia. Continue with home dose of atenolol. Telemetry. Full code. Clear liquid diet. SCDs for DVT prophylaxis. Protonix for help with PUD prophylaxis. Transfer to [facility]. Attestations Medical Necessity Statement*: Requires further hospitalization for evaluation and management of postoperative care for colonic mass resection in setting of lower GI bleed on anticoagulation and blood thinner for peripheral arterial disease Time Spent in Patient Care: Greater than 35 minutes Coding Level of Care Code Acute Map Plotter for [facility] Fwdonna Diagnoses Acute lower GI bleeding K92.2 Colonic mass K63.89 CKD (chronic kidney disease) N18.9 Arthritis M19.90 Peripheral vascular disease I73.9
[2021-08-07] MEDS: fluticasone nasal spray 16gm Btl 1 SPRAY INTRANASAL (17:13)
--- NOTE | 2021-08-07 17:37 | PC.NURSE ---
Report called to ARRON Wyatt. No further questions. Will take patient to floor bed when he is done eating. notified of transfer.
--- NOTE | 2021-08-07 18:06 | PC.NURSE ---
Patient and belongings taken to 254-2. Bedside report given to ARRON Wyatt.
[2021-08-08] VITALS (15 sets, daily range): BP systolic 127–173; BP diastolic 63–88; PULSE 72–95; RESP 16–23; TEMP 36.5–37.5; O2SAT 94–97
[2021-08-08] MEDS: ipratropium-albuterol 3 mL Neb INHALATION ×4 (02:39→20:30)
[2021-08-08] MEDS: CLONazepam 0.5 mg Tablet PO (02:47)
[2021-08-08] MEDS: enoxaparin 40 mg/0.4 mL Syringe SUBCUT (06:15)
[2021-08-08 06:21] LABS: Basophils % 0.2 %; Eosinophils # 0.2 10^3/uL (0.0-0.8); Eosinophils % 4.1 %; Hematocrit 27.3 % (42.0-52.0); Hemoglobin 7.9 g/dL (11.7-16.6); Lymphocytes # 0.9 10^3/uL (0.8-4.8); Lymphocytes % 15.3 %; Mean Corpuscular HGB Conc 28.9 g/dL (30.0-36.0); Mean Corpuscular Hemoglobin 29.8 pg (28.0-34.0); Mean Platelet Volume 9.8 fL (7.4-10.4); Monocytes # 0.3 10^3/uL (0.2-0.9); Monocytes % 4.9 %; Neutrophils # 4.18 10^3/uL (1.8-7.7); Neutrophils % 75.1 %; Nucleated Red Blood Cells % 0 %; Platelet Count 141 10^3/cmm (130-400); Red Blood Count 2.65 10^6/uL (4.1-5.3); Red Cell Distribution Width 17.8 % (12.1-15.1); White Blood Count 5.6 10^3/uL (4.0-10.0)
[2021-08-08 06:34] LABS: Alanine Aminotransferase 17 U/L (0-41); Albumin Level 3.4 g/dL (3.5-5.2); Alkaline Phosphatase 50 IU/L (40-130); Anion Gap 14.3 (5-19); Aspartate Amino Transferase 30 U/L (0-40); Blood Urea Nitrogen 12 mg/dL (8-23); Calcium 8.5 mg/dL (8.5-10.5); Carbon Dioxide 22 mmol/L (22-29); Chloride 106 mmol/L (98-107); Globulin 2.2 g/dL (1.3-4.6); Glucose 115 mg/dL (65-115); Osmolality Calculated 287 mOsm/kg (285-295); Potassium 4.3 mmol/L (3.5-5.1); Sodium 138 mmol/L (136-145); Total Bilirubin 0.3 mg/dL (0.15-1.2); Total Protein 5.6 g/dL (6.6-8.7)
[2021-08-08 06:40] LABS: Creatinine Clr Calc Pharmacy 48.9296
[2021-08-08] MEDS: pantoprazole 40 mg SDV IVP ×2 (08:41→20:52)
[2021-08-08] MEDS: HYDROcodone-acetaminophen 5-325 mg Tablet 1 TAB PO ×3 (08:46→20:52)
[2021-08-08] MEDS: D5-NS 0.45% + KCL 20 mEq 20 MEQ/1,000 ML BAG 75 MEQ IV ×2 (08:51→22:25)
[2021-08-08] MEDS: guaiFENesin 600 mg Tablet PO (08:53)
[2021-08-08] MEDS: diclofenac 1% Topical Gel 100 gm 1 APPLIC TOPICAL ×4 (10:21→20:53)
[2021-08-08] MEDS: gabapentin 100 mg Capsule PO (10:21)
[2021-08-08] MEDS: atorvastatin 40 mg Tablet 80 MG PO (10:21)
[2021-08-08] MEDS: fluticasone nasal spray 16gm Btl 1 SPRAY INTRANASAL ×2 (10:21→17:29)
[2021-08-08] MEDS: amlodipine 5 mg Tablet PO (10:22)
[2021-08-08] MEDS: tamsulosin 0.4 mg Capsule PO (10:22)
[2021-08-08] MEDS: atenolol 50 mg Tablet 25 MG PO (10:22)
[2021-08-08] MEDS: sennosides-docusate Tablet 1 TAB PO ×2 (10:22→17:29)
[2021-08-08 10:27] LABS: Miscellaneous Test See Scanned Lab Rpt
--- NOTE | 2021-08-08 11:37 | PM.PN ---
Subjective Subjective: Patient denies any abdominal pain, nausea, vomiting, passing flatus and states that he had a small bowel movement Medications: Reviewed: Yes Vitals/I&O/Wt Last Vital Signs Temp 99.5 F 08/08/21 08:00 Pulse 87 08/08/21 08:34 Resp 17 08/08/21 08:34 BP 173/86 08/08/21 08:00 Pulse Ox 95 08/08/21 08:34 08/07/21 08/08/21 08/08/21 22:59 06:59 14:59 Intake Total 1436.25 / 2636.25 470 / 2636.25 1000 / 1000 Output Total 150 / 1750 1300 / 1750 Balance 1286.25 / 886.25 -830 / 886.25 1000 / 1000 Physical Exam Narrative: Abdomen: Soft mildly tender, minimally distended, incision clean dry and intact Urinary Catheter Management: Soliz: Cath Placed During This Visit: yes, but has since been removed by the nurse Reason for Continuing Indwelling Catheter: Decision to DC Catheter Urinary Catheter Date of Insertion: 08/06/21 Urinary Catheter Time of Insertion: 13:18 Date Urinary Catheter Removed: 08/07/21 Time Urinary Catheter Discontinued: 10:04 Data : 08/08/21 05:40 08/08/21 05:40 A&P Assessment and plan (1) S/P laparoscopic-assisted sigmoidectomy: 81-year-old male status post sigmoid colectomy with postop ileus, passing flatus Advance to full liquid diet Hemoglobin: 7.9, continue to monitor Ambulate with physical therapy Protonix for GI prophylaxis Lovenox for DVT prophylaxis Senna S for bowel regimen Hopefully Xarelto can be started in the next 24 to 48 hours if his hemoglobin remained stable. Status: Acute Attestations Medical Necessity Statement*: Status post colon resection requiring continued inpatient stay to ensure resolution of ileus Coding Level of Care Code Acute Retail Commission Sales Associate for Chg Fwd 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
--- NOTE | 2021-08-08 12:57 | PM.PN ---
Subjective Subjective: Patient was seen and examined this morning, denies any chest pain, shortness of breath abdominal pain nausea vomiting. Medications: Reviewed: Yes Medication Review Details: Generic Name Dose Route Start Last Admin Trade Name Freq PRN Reason Stop Dose Admin Acetaminophen 650 mg 08/04/21 06:12 08/05/21 04:56 Acetaminophen 32 5 Mg Tablet PO 650 mg Q6H PRN Administration Mild/Mod Pain Or Temp >/= 101 Hydrocodone Bitart /Acetaminophen 1 tab 08/06/21 16:33 08/08/21 15:39 Hydrocodone-Acet aminophen 5-325 Mg Tablet PO 1 tab Q6H PRN Administration MODERATE PAIN Albuterol/Ipratrop ium 3 ml 08/04/21 09:00 08/08/21 14:52 Ipratropium-Albu terol 3 Ml Neb INHALATION 3 ml Q6H NORMAN Administration Amlodipine Besylat e 5 mg 08/07/21 09:25 08/08/21 10:22 Amlodipine 5 Mg Tablet PO 5 mg DAILY NORMAN Administration Atenolol 25 mg 08/04/21 09:00 08/08/21 10:22 Atenolol 50 Mg T ablet PO 25 mg DAILY NORMAN Administration Atorvastatin Calci um 80 mg 08/04/21 09:00 08/08/21 10:21 Atorvastatin 40 Mg Tablet PO 80 mg DAILY NORMAN Administration Clonazepam 0.5 mg 08/04/21 06:16 08/08/21 02:47 Clonazepam 0.5 M g Tablet PO 0.5 mg Q12H PRN Administration Anxiety Diclofenac Sodium 1 applic 08/04/21 09:00 08/08/21 15:33 Diclofenac 1% To pical Gel 100 Gm TOPICAL 1 applic QID NORMAN Administration Enoxaparin Sodium 40 mg 08/07/21 06:00 08/08/21 06:15 Enoxaparin 40 Mg /0.4 Ml Syringe SUBCUT 40 mg Q24H NORMAN Administration Fluticasone Propio antonio 1 spray 08/07/21 18:00 08/08/21 10:21 Fluticasone Nasa l [place] 16gm Btl INTRANASAL 1 spray BID NORMAN Administration Gabapentin 100 mg 08/04/21 09:00 08/08/21 10:21 Gabapentin 100 M g Capsule PO 100 mg DAILY NORMAN Administration Guaifenesin 600 mg 08/06/21 22:28 08/08/21 08:53 Guaifenesin 600 Mg Tablet PO 600 mg BID PRN Administration COUGH Potassium Chloride /Dextrose/Sod Cl 20 meq in 1,000 m ls @ 75 mls/hr 08/06/21 16:33 08/08/21 08:51 D5-Ns 0.45% + Celso l 20 Meq IV 75 mls/hr .[id number] NORMAN Administration Pantoprazole Sodiu m 40 mg 08/04/21 06:15 08/08/21 08:41 Pantoprazole 40 Mg Sdv IVP 40 mg Q12H NORMAN Administration Prednisone 5 mg 08/05/21 09:00 08/06/21 09:50 Prednisone 5 Mg Tablet PO 5 mg DAILY NORMAN Administration Senna/Docusate Sod ium 1 tab 08/06/21 18:00 08/08/21 10:22 Sennosides-Docus ate Tablet PO 1 tab BID NORMAN Administration Tamsulosin HCl 0.4 mg 08/04/21 09:00 08/08/21 10:22 Tamsulosin 0.4 M g Capsule PO 0.4 mg DAILY NORMAN Administration Vitals/I&O/Wt Last Vital Signs Temp 99.5 F 08/08/21 08:00 Pulse 87 08/08/21 08:34 Resp 17 08/08/21 08:34 BP 173/86 08/08/21 08:00 Pulse Ox 95 08/08/21 08:34 08/07/21 08/08/21 08/08/21 22:59 06:59 14:59 Intake Total 1436.25 / 2166.25 470 / 2636.25 1000 / 1000 Output Total 150 / 450 1300 / 1750 Balance 1286.25 / 1716.25 -830 / 886.25 1000 / 1000 Physical Exam Const: COMMON NORMALS: patient oriented x3 HENMT: COMMON NORMALS: normocephalic and atraumatic HEAD & SCALP: normocephalic and atraumatic Eye: COMMON NORMALS: no scleral icterus GENERAL EYE: appearance normal, both eyes and all related structures Chest: COMMONS NORMALS: normal inspection of the chest and normal palpation of entire chest wall CHEST: Yes Symmetrical chest wall rise Resp: COMMON NORMALS: normal respiratory effort, No retractions, No use of accessory muscles and clear to auscultation bilaterally EFFORT & INSPECTION: Yes symmetric chest movement AUSCULTATION: clear to auscultation bilaterally Cardio: COMMON NORMALS: regular rate, regular rhythm, S1 normal heart sound present, S2 normal heart sound present, No gallops present (Cardio), No murmurs present (Cardio), No rub (Cardio) and Peripheral pulses 2+ throughout RATE: regular rate RHYTHM: regular rhythm HEART SOUNDS: S1 normal heart sound present and S2 normal heart sound present PERIPHERAL PULSES: Peripheral pulses 2+ throughout GI: COMMON NORMALS: Normal to inspection, nondistended, normoactive bowel sounds present, Soft to palpation, non-tender, No hepatosplenomegaly present and no masses AUSCULTATION: Yes normoactive bowel sounds PALPATION: Yes Soft to palpation and Yes No hepatosplenomegaly present RECTAL EXAM: Yes deferred Extremity: COMMON NORMALS: no clubbing, cyanosis or edema and no pedal edema Neuro: COMMON NORMALS: patient oriented x3 Urinary Catheter Management: Soliz: Cath Placed During This Visit: yes, but has since been removed by the nurse Reason for Continuing Indwelling Catheter: Decision to DC Catheter Urinary Catheter Date of Insertion: 08/06/21 Urinary Catheter Time of Insertion: 13:18 Date Urinary Catheter Removed: 08/07/21 Time Urinary Catheter Discontinued: 10:04 Data : 08/08/21 05:40 08/08/21 05:40 A&P Assessment and plan (1) Acute lower GI bleeding: Painless acute lower GI bleeding: Hemoglobin stable. We will transfuse if drops less than 8. Check hemoglobin daily. Continue holding off on anticoagulation, cilostazol and aspirin for now. Protonix 40 mg twice daily. Status: Acute (2) Colonic mass: Post colonic mass resection day 1. Anticoagulation, diet, physical therapy, pain medication as per surgical team. Started on Lovenox, clear liquid diet. DC Soliz catheter. Status: Acute (3) CKD (chronic kidney disease): MARION present on admission. Now has resolved. Baseline creatinine 1.5. Creatinine back to baseline today. Continue with gentle IV hydration. Medical reconciliation done for nephrotoxic drugs. Renal ultrasound appreciated. Status: Acute (4) Arthritis: Holding prednisone for now to facilitate postsurgical healing. We will monitor blood pressures. If blood pressures drop we will have to reintroduce prednisone. Status: Acute (5) Peripheral vascular disease: Status: Acute Plan 81 year old male? with PMH seronegative arthritis, follows with rheumatology as outpatient, presenting with lower GI bleed. #Acute LGI bleed: Continue to monitor H&H Transfuse if hemoglobin is less than 7.5 Continue Protonix 40 mg twice daily Continue to hold off Xarelto aspirin and cilostazol #Colonic mass: S/P colonic resection. Follow pathology report On [facility] Appreciate surgery input #Hypertension: Continue amlodipine, continue atenolol. #History of PAD: On aspirin and cilostazol, currently on hold Full code. DVT prophylaxis. On Lovenox Attestations Medical Necessity Statement*: Patient is to the hospital for management of GI bleed. 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
[2021-08-09] VITALS (18 sets, daily range): BP systolic 121–176; BP diastolic 70–85; PULSE 78–108; RESP 16–21; TEMP 36.7–37.8; O2SAT 91–97
[2021-08-09] MEDS: ipratropium-albuterol 3 mL Neb INHALATION ×4 (03:14→20:06)
[2021-08-09] MEDS: enoxaparin 40 mg/0.4 mL Syringe SUBCUT (05:56)
[2021-08-09] MEDS: HYDROcodone-acetaminophen 5-325 mg Tablet 1 TAB PO ×2 (05:59→21:49)
[2021-08-09 06:23] LABS: Basophils % 0.2 %; Eosinophils # 0.3 10^3/uL (0.0-0.8); Eosinophils % 5.4 %; Hematocrit 31.7 % (42.0-52.0); Hemoglobin 9.1 g/dL (11.7-16.6); Lymphocytes # 0.7 10^3/uL (0.8-4.8); Lymphocytes % 13.4 %; Mean Corpuscular HGB Conc 28.7 g/dL (30.0-36.0); Mean Corpuscular Hemoglobin 29.7 pg (28.0-34.0); Mean Corpuscular Volume 103.6 fl (80-94); Mean Platelet Volume 9.5 fL (7.4-10.4); Monocytes # 0.3 10^3/uL (0.2-0.9); Monocytes % 5.4 %; Neutrophils # 4.12 10^3/uL (1.8-7.7); Neutrophils % 74.9 %; Nucleated Red Blood Cells % 0 %; Platelet Count 168 10^3/cmm (130-400); Red Blood Count 3.06 10^6/uL (4.1-5.3); Red Cell Distribution Width 17.9 % (12.1-15.1); White Blood Count 5.5 10^3/uL (4.0-10.0)
[2021-08-09 06:59] LABS: Alanine Aminotransferase 21 U/L (0-41); Albumin Level 3.6 g/dL (3.5-5.2); Alkaline Phosphatase 58 IU/L (40-130); Aspartate Amino Transferase 36 U/L (0-40); Blood Urea Nitrogen 8 mg/dL (8-23); Calcium 9.4 mg/dL (8.5-10.5); Carbon Dioxide 21 mmol/L (22-29); Chloride 105 mmol/L (98-107); Globulin 2.4 g/dL (1.3-4.6); Glucose 123 mg/dL (65-115); Osmolality Calculated 288 mOsm/kg (285-295); Sodium 139 mmol/L (136-145); Total Bilirubin 0.5 mg/dL (0.15-1.2)
--- NOTE | 2021-08-09 08:06 | PM.PN ---
Subjective Subjective: Patient denies significant pain, no nausea or vomiting, passing flatus, very full liquid diet, no BM Medications: Reviewed: Yes Vitals/I&O/Wt Last Vital Signs Temp 98.9 F 08/09/21 04:00 Pulse 83 08/09/21 06:00 Resp 21 H 08/09/21 04:00 BP 176/80 08/09/21 04:00 Pulse Ox 95 08/09/21 04:00 08/08/21 08/09/21 08/09/21 22:59 06:59 14:59 Intake Total 1660 / 3560 780 / 3560 Output Total 425 / 2075 1650 / 2075 Balance 1235 / 1485 -870 / 1485 Physical Exam Narrative: Abdomen: Soft, mildly distended, nontender, incision clean dry and intact Urinary Catheter Management: Soliz: Cath Placed During This Visit: yes, but has since been removed by the nurse Reason for Continuing Indwelling Catheter: Decision to DC Catheter Urinary Catheter Date of Insertion: 08/06/21 Urinary Catheter Time of Insertion: 13:18 Date Urinary Catheter Removed: 08/07/21 Time Urinary Catheter Discontinued: 10:04 Data : 08/09/21 05:47 08/09/21 05:47 A&P Assessment and plan (1) S/P laparoscopic-assisted sigmoidectomy: 81-year-old male status post sigmoid colectomy with postop ileus, passing flatus full liquid diet Hemoglobin: 9.1 today, start Xarelto 2.5 mg tonight DC IV fluids Ambulate with physical therapy Protonix for GI prophylaxis DC Lovenox tomorrow Senna S for bowel regimen Status: Acute Attestations Medical Necessity Statement*: As per primary Coding Level of Care Code Acute [place] Carpenter for Chg Fwd 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
[2021-08-09] MEDS: pantoprazole 40 mg SDV IVP (09:00)
[2021-08-09] MEDS: sennosides-docusate Tablet 1 TAB PO ×2 (09:48→17:45)
[2021-08-09] MEDS: allopurinol 300 mg Tablet PO (09:48)
[2021-08-09] MEDS: tamsulosin 0.4 mg Capsule PO (09:48)
[2021-08-09] MEDS: gabapentin 100 mg Capsule PO (09:48)
[2021-08-09] MEDS: atenolol 50 mg Tablet 25 MG PO (09:49)
[2021-08-09] MEDS: atorvastatin 40 mg Tablet 80 MG PO (09:49)
[2021-08-09] MEDS: amlodipine 5 mg Tablet PO (09:49)
[2021-08-09] MEDS: isosorbide mononitrate ER 60 mg Tablet PO (09:49)
[2021-08-09] MEDS: guaiFENesin 600 mg Tablet PO (09:49)
[2021-08-09] MEDS: diclofenac 1% Topical Gel 100 gm 1 APPLIC TOPICAL ×3 (09:50→17:45)
[2021-08-09] MEDS: fluticasone nasal spray 16gm Btl 1 SPRAY INTRANASAL ×2 (09:51→17:46)
[2021-08-09] MEDS: lactulose oral liq 20 gm/30 mL UDC PO (10:29)
--- NOTE | 2021-08-09 10:34 | PC.SOCIAL ---
IMM update IMM updated with patient and at bedside. Verbalized an understanding. Copy Pg 2 provided. Initialled, dated, timed, and placed in chart.
[2021-08-09] MEDS: ondansetron 2 mg/ML SDV 2 mL 4 MG IVP (12:57)
--- NOTE | 2021-08-09 15:59 | PM.PN ---
Subjective Subjective: Patient was seen and examined this morning, denies any chest pain, shortness of breath abdominal pain nausea vomiting. Was complaining of constipation, H&H has remained stable.Hemoglobin is up trended to 9.1. Vitals and labs have been reviewed. Medications: Reviewed: Yes Medication Review Details: Generic Name Dose Route Start Last Admin Trade Name Freq PRN Reason Stop Dose Admin Acetaminophen 650 mg 08/04/21 06:12 08/05/21 04:56 Acetaminophen 32 5 Mg Tablet PO 650 mg Q6H PRN Administration Mild/Mod Pain Or Temp >/= 101 Hydrocodone Bitart /Acetaminophen 1 tab 08/06/21 16:33 08/08/21 15:39 Hydrocodone-Acet aminophen 5-325 Mg Tablet PO 1 tab Q6H PRN Administration MODERATE PAIN Albuterol/Ipratrop ium 3 ml 08/04/21 09:00 08/08/21 14:52 Ipratropium-Albu terol 3 Ml Neb INHALATION 3 ml Q6H NORMAN Administration Amlodipine Besylat e 5 mg 08/07/21 09:25 08/08/21 10:22 Amlodipine 5 Mg Tablet PO 5 mg DAILY NORMAN Administration Atenolol 25 mg 08/04/21 09:00 08/08/21 10:22 Atenolol 50 Mg T ablet PO 25 mg DAILY NORMAN Administration Atorvastatin Calci um 80 mg 08/04/21 09:00 08/08/21 10:21 Atorvastatin 40 Mg Tablet PO 80 mg DAILY NORMAN Administration Clonazepam 0.5 mg 08/04/21 06:16 08/08/21 02:47 Clonazepam 0.5 M g Tablet PO 0.5 mg Q12H PRN Administration Anxiety Diclofenac Sodium 1 applic 08/04/21 09:00 08/08/21 15:33 Diclofenac 1% To pical Gel 100 Gm TOPICAL 1 applic QID NORMAN Administration Enoxaparin Sodium 40 mg 08/07/21 06:00 08/08/21 06:15 Enoxaparin 40 Mg /0.4 Ml Syringe SUBCUT 40 mg Q24H NORMAN Administration Fluticasone Propio antonio 1 spray 08/07/21 18:00 08/08/21 10:21 Fluticasone Nasa l [place] 16gm Btl INTRANASAL 1 spray BID NORMAN Administration Gabapentin 100 mg 08/04/21 09:00 08/08/21 10:21 Gabapentin 100 M g Capsule PO 100 mg DAILY NORMAN Administration Guaifenesin 600 mg 08/06/21 22:28 08/08/21 08:53 Guaifenesin 600 Mg Tablet PO 600 mg BID PRN Administration COUGH Potassium Chloride /Dextrose/Sod Cl 20 meq in 1,000 m ls @ 75 mls/hr 08/06/21 16:33 08/08/21 08:51 D5-Ns 0.45% + Celso l 20 Meq IV 75 mls/hr .[id number] NORMAN Administration Pantoprazole Sodiu m 40 mg 08/04/21 06:15 08/08/21 08:41 Pantoprazole 40 Mg Sdv IVP 40 mg Q12H NORMAN Administration Prednisone 5 mg 08/05/21 09:00 08/06/21 09:50 Prednisone 5 Mg Tablet PO 5 mg DAILY NORMAN Administration Senna/Docusate Sod ium 1 tab 08/06/21 18:00 08/08/21 10:22 Sennosides-Docus ate Tablet PO 1 tab BID NORMAN Administration Tamsulosin HCl 0.4 mg 08/04/21 09:00 08/08/21 10:22 Tamsulosin 0.4 M g Capsule PO 0.4 mg DAILY NORMAN Administration Vitals/I&O/Wt Last Vital Signs Temp 98.5 F 08/09/21 15:48 Pulse 91 08/09/21 15:48 Resp 16 08/09/21 15:48 BP 121/70 08/09/21 15:48 Pulse Ox 97 08/09/21 15:48 08/09/21 08/09/21 08/09/21 06:59 14:59 22:59 Intake Total 780 / 3560 1146.25 / 1146.25 Output Total 1650 / 2075 1125 / 1125 Balance -870 / 1485 . Physical Exam Const: COMMON NORMALS: patient oriented x3 HENMT: COMMON NORMALS: normocephalic and atraumatic HEAD & SCALP: normocephalic and atraumatic Eye: COMMON NORMALS: no scleral icterus GENERAL EYE: appearance normal, both eyes and all related structures Chest: COMMONS NORMALS: normal inspection of the chest and normal palpation of entire chest wall CHEST: Yes Symmetrical chest wall rise Resp: COMMON NORMALS: normal respiratory effort, No retractions, No use of accessory muscles and clear to auscultation bilaterally EFFORT & INSPECTION: Yes symmetric chest movement AUSCULTATION: clear to auscultation bilaterally Cardio: COMMON NORMALS: regular rate, regular rhythm, S1 normal heart sound present, S2 normal heart sound present, No gallops present (Cardio), No murmurs present (Cardio), No rub (Cardio) and Peripheral pulses 2+ throughout RATE: regular rate RHYTHM: regular rhythm HEART SOUNDS: S1 normal heart sound present and S2 normal heart sound present PERIPHERAL PULSES: Peripheral pulses 2+ throughout GI: COMMON NORMALS: Normal to inspection, nondistended, normoactive bowel sounds present, Soft to palpation, non-tender, No hepatosplenomegaly present and no masses AUSCULTATION: Yes normoactive bowel sounds PALPATION: Yes Soft to palpation and Yes No hepatosplenomegaly present RECTAL EXAM: Yes deferred Extremity: COMMON NORMALS: no clubbing, cyanosis or edema and no pedal edema Neuro: COMMON NORMALS: patient oriented x3 Urinary Catheter Management: Soliz: Cath Placed During This Visit: yes, but has since been removed by the nurse Reason for Continuing Indwelling Catheter: Decision to DC Catheter Urinary Catheter Date of Insertion: 08/06/21 Urinary Catheter Time of Insertion: 13:18 Date Urinary Catheter Removed: 08/07/21 Time Urinary Catheter Discontinued: 10:04 Data : 08/09/21 05:47 08/09/21 05:47 A&P Assessment and plan (1) Acute lower GI bleeding: Painless acute lower GI bleeding: Hemoglobin stable. We will transfuse if drops less than 8. Check hemoglobin daily. Continue holding off on anticoagulation, cilostazol and aspirin for now. Protonix 40 mg twice daily. Status: Acute (2) Colonic mass: Post colonic mass resection day 1. Anticoagulation, diet, physical therapy, pain medication as per surgical team. Started on Lovenox, clear liquid diet. DC Soliz catheter. Status: Acute (3) CKD (chronic kidney disease): MARION present on admission. Now has resolved. Baseline creatinine 1.5. Creatinine back to baseline today. Continue with gentle IV hydration. Medical reconciliation done for nephrotoxic drugs. Renal ultrasound appreciated. Status: Acute (4) Arthritis: Holding prednisone for now to facilitate postsurgical healing. We will monitor blood pressures. If blood pressures drop we will have to reintroduce prednisone. Status: Acute (5) Peripheral vascular disease: Status: Acute Plan 81 year old male? with PMH seronegative arthritis, follows with rheumatology as outpatient, presenting with lower GI bleed. #Acute LGI bleed: Continue to monitor H&H Transfuse if hemoglobin is less than 7.5 Continue Protonix 40 mg twice daily Continue to hold aspirin and cilostazol Xarelto has been resumed #Colonic mass: S/P colonic resection. Follow pathology report On [facility] Appreciate surgery input #Hypertension: Continue amlodipine, continue atenolol. #History of PAD: On aspirin and cilostazol, currently on hold Full code. DVT prophylaxis.Not needed On Xarelto Attestations Medical Necessity Statement*: Patient is in the hospital for management of GI bleed, need for hb monitoring post resumption of Ac. 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
[2021-08-09] MEDS: pantoprazole DR 40 mg Tablet PO (17:45)
[2021-08-09] MEDS: CLONazepam 0.5 mg Tablet PO (21:49)
[2021-08-10] VITALS (15 sets, daily range): BP systolic 108–153; BP diastolic 69–79; PULSE 60–98; RESP 12–18; TEMP 37–37.6; O2SAT 91–96
[2021-08-10] MEDS: ipratropium-albuterol 3 mL Neb INHALATION ×4 (02:09→20:01)
[2021-08-10] MEDS: HYDROcodone-acetaminophen 5-325 mg Tablet 1 TAB PO ×2 (04:03→20:28)
--- NOTE | 2021-08-10 05:23 | PC.NURSE ---
SHIFT SUMMARY Is very pleasant. Has been medicated for pain c/o X2 tonight with po Hydrocodone. Pain is incisional pain as well as bilat knee pain. Says arthritis really bothers him. Abd incisions umbilicus and X2 stab incisions all clean & dry with dermabond closure. Some faint bruising around incisions. Briseyda Full Liquid diet well. Is passing gas and reports BM's after taking Lactulose yesterday. Urinatilng well.
[2021-08-10 05:52] LABS: Basophils % 0.2 %; Eosinophils # 0.3 10^3/uL (0.0-0.8); Eosinophils % 5.5 %; Hematocrit 28.4 % (42.0-52.0); Hemoglobin 8.2 g/dL (11.7-16.6); Lymphocytes # 0.8 10^3/uL (0.8-4.8); Lymphocytes % 15.8 %; Mean Corpuscular HGB Conc 28.9 g/dL (30.0-36.0); Mean Corpuscular Hemoglobin 29.3 pg (28.0-34.0); Mean Corpuscular Volume 101.4 fl (80-94); Mean Platelet Volume 9.7 fL (7.4-10.4); Monocytes # 0.3 10^3/uL (0.2-0.9); Neutrophils # 3.49 10^3/uL (1.8-7.7); Neutrophils % 71.7 %; Nucleated Red Blood Cells % 0 %; Platelet Count 158 10^3/cmm (130-400); Red Cell Distribution Width 17.5 % (12.1-15.1); White Blood Count 4.9 10^3/uL (4.0-10.0)
[2021-08-10 06:26] LABS: Blood Urea Nitrogen 9 mg/dL (8-23); Calcium 9.1 mg/dL (8.5-10.5); Carbon Dioxide 23 mmol/L (22-29); Chloride 103 mmol/L (98-107); Creatinine Clr Calc Pharmacy 48.9296; Glucose 95 mg/dL (65-115); Osmolality Calculated 282 mOsm/kg (285-295); Sodium 137 mmol/L (136-145)
[2021-08-10] MEDS: atenolol 50 mg Tablet 25 MG PO (08:03)
[2021-08-10] MEDS: allopurinol 300 mg Tablet PO (08:04)
[2021-08-10] MEDS: pantoprazole DR 40 mg Tablet PO ×2 (08:04→17:14)
[2021-08-10] MEDS: tamsulosin 0.4 mg Capsule PO (08:04)
[2021-08-10] MEDS: amlodipine 5 mg Tablet PO (08:05)
[2021-08-10] MEDS: atorvastatin 40 mg Tablet 80 MG PO (08:05)
[2021-08-10] MEDS: gabapentin 100 mg Capsule PO (08:05)
[2021-08-10] MEDS: isosorbide mononitrate ER 60 mg Tablet PO (08:05)
[2021-08-10] MEDS: sennosides-docusate Tablet 1 TAB PO ×2 (08:05→17:14)
[2021-08-10] MEDS: diclofenac 1% Topical Gel 100 gm 1 APPLIC TOPICAL ×4 (08:06→20:28)
[2021-08-10] MEDS: fluticasone nasal spray 16gm Btl 1 SPRAY INTRANASAL ×2 (08:06→17:15)
[2021-08-10] MEDS: fexofenadine 60 mg Tablet PO ×2 (08:20→17:14)
[2021-08-10] MEDS: RIVAROXABAN 2.5 MG 2.5 EACH PO ×2 (11:49→17:13)
--- NOTE | 2021-08-10 12:22 | PM.PN ---
Subjective Subjective: patient had BM yesterday, tolerating a full liquid diet Medications: Reviewed: Yes Vitals/I&O/Wt Last Vital Signs Temp 99.4 F 08/10/21 04:00 Pulse 84 08/10/21 08:23 Resp 17 08/10/21 08:23 BP 153/79 08/10/21 07:55 Pulse Ox 94 08/10/21 08:23 08/09/21 08/10/21 08/10/21 22:59 06:59 14:59 Intake Total 360 / 1806.25 300 / 1806.25 240 / 240 Output Total 1200 / 2325 Balance 360 / -518.75 -900 / -518.75 240 / 240 Physical Exam Narrative: Abdomen: soft , tender, ND ,incision c/d/i Urinary Catheter Management: Soliz: Cath Placed During This Visit: yes, but has since been removed by the nurse Reason for Continuing Indwelling Catheter: Decision to DC Catheter Urinary Catheter Date of Insertion: 08/06/21 Urinary Catheter Time of Insertion: 13:18 Date Urinary Catheter Removed: 08/07/21 Time Urinary Catheter Discontinued: 10:04 Data : 08/10/21 04:31 08/10/21 04:31 A&P Assessment and plan (1) S/P laparoscopic-assisted sigmoidectomy: 81-year-old male status post sigmoid colectomy with postop ileus, passing flatus Advance to GI soft diet Hemoglobin: 8.2 today, start Xarelto 2.5 mg today am, check hemoglobin tomorrow with possible discharge Ambulate with physical therapy Protonix for GI prophylaxis Senna S for bowel regimen Status: Acute Attestations Medical Necessity Statement*: as per primary Coding Level of Care Code Acute Director Inpatient Headache Program for Chg Fwd 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
--- NOTE | 2021-08-10 14:35 | PM.PN ---
Subjective Subjective: Patient was seen and examined this morning , had 3-4 BM yesterday, unfortunately xarelto was not restarted last night as home medications was not available, received 1st dose this morning, Hb today has down trended to 8.2, today.Plan is continue to monitor Hb. tolerated full liquid diet diet advanced to G/I Soft today. His other vitals and labs have been reviewed. Medications: Reviewed: Yes Medication Review Details: Generic Name Dose Route Start Last Admin Trade Name Myrna PRN Reason Stop Dose Admin Acetaminophen 650 mg 08/04/21 06:12 08/05/21 04:56 Acetaminophen 32 5 Mg Tablet PO 650 mg Q6H PRN Administration Mild/Mod Pain Or Temp >/= 101 Hydrocodone Bitart /Acetaminophen 1 tab 08/06/21 16:33 08/08/21 15:39 Hydrocodone-Acet aminophen 5-325 Mg Tablet PO 1 tab Q6H PRN Administration MODERATE PAIN Albuterol/Ipratrop ium 3 ml 08/04/21 09:00 08/08/21 14:52 Ipratropium-Albu terol 3 Ml Neb INHALATION 3 ml Q6H NORMAN Administration Amlodipine Besylat e 5 mg 08/07/21 09:25 08/08/21 10:22 Amlodipine 5 Mg Tablet PO 5 mg DAILY NORMAN Administration Atenolol 25 mg 08/04/21 09:00 08/08/21 10:22 Atenolol 50 Mg T ablet PO 25 mg DAILY NORMAN Administration Atorvastatin Calci um 80 mg 08/04/21 09:00 08/08/21 10:21 Atorvastatin 40 Mg Tablet PO 80 mg DAILY NORMAN Administration Clonazepam 0.5 mg 08/04/21 06:16 08/08/21 02:47 Clonazepam 0.5 M g Tablet PO 0.5 mg Q12H PRN Administration Anxiety Diclofenac Sodium 1 applic 08/04/21 09:00 08/08/21 15:33 Diclofenac 1% To pical Gel 100 Gm TOPICAL 1 applic QID NORMAN Administration Enoxaparin Sodium 40 mg 08/07/21 06:00 08/08/21 06:15 Enoxaparin 40 Mg /0.4 Ml Syringe SUBCUT 40 mg Q24H NORMAN Administration Fluticasone Propio antonio 1 spray 08/07/21 18:00 08/08/21 10:21 Fluticasone [place] 16gm Btl INTRANASAL 1 spray BID NORMAN Administration Gabapentin 100 mg 08/04/21 09:00 08/08/21 10:21 Gabapentin 100 M g Capsule PO 100 mg DAILY NORMAN Administration Guaifenesin 600 mg 08/06/21 22:28 08/08/21 08:53 Guaifenesin 600 Mg Tablet PO 600 mg BID PRN Administration COUGH Potassium Chloride /Dextrose/Sod Cl 20 meq in 1,000 m ls @ 75 mls/hr 08/06/21 16:33 08/08/21 08:51 D5-Ns 0.45% + Celso l 20 Meq IV 75 mls/hr .[id number] NORMAN Administration Pantoprazole Sodiu m 40 mg 08/04/21 06:15 08/08/21 08:41 Pantoprazole 40 Mg Sdv IVP 40 mg Q12H NORMAN Administration Prednisone 5 mg 08/05/21 09:00 08/06/21 09:50 Prednisone 5 Mg Tablet PO 5 mg DAILY NORMAN Administration Senna/Docusate Sod ium 1 tab 08/06/21 18:00 08/08/21 10:22 Sennosides-Docus ate Tablet PO 1 tab BID NORMAN Administration Tamsulosin HCl 0.4 mg 08/04/21 09:00 08/08/21 10:22 Tamsulosin 0.4 M g Capsule PO 0.4 mg DAILY NORMAN Administration Vitals/I&O/Wt Last Vital Signs Temp 98.8 F 08/10/21 12:00 Pulse 77 08/10/21 12:00 Resp 14 08/10/21 12:00 BP 113/69 08/10/21 12:00 Pulse Ox 91 08/10/21 12:00 08/09/21 08/10/21 08/10/21 22:59 06:59 14:59 Intake Total 360 / 1506.25 300 / 1806.25 240 / 240 Output Total 1200 / 2325 Balance 360 / 381.25 -900 / -518.75 240 / 240 Physical Exam Const: COMMON NORMALS: patient oriented x3 HENMT: COMMON NORMALS: normocephalic and atraumatic HEAD & SCALP: normocephalic and atraumatic Eye: COMMON NORMALS: no scleral icterus GENERAL EYE: appearance normal, both eyes and all related structures Chest: COMMONS NORMALS: normal inspection of the chest and normal palpation of entire chest wall CHEST: Yes Symmetrical chest wall rise Resp: COMMON NORMALS: normal respiratory effort, No retractions, No use of accessory muscles and clear to auscultation bilaterally EFFORT & INSPECTION: Yes symmetric chest movement AUSCULTATION: clear to auscultation bilaterally Cardio: COMMON NORMALS: regular rate, regular rhythm, S1 normal heart sound present, S2 normal heart sound present, No gallops present (Cardio), No murmurs present (Cardio), No rub (Cardio) and Peripheral pulses 2+ throughout RATE: regular rate RHYTHM: regular rhythm HEART SOUNDS: S1 normal heart sound present and S2 normal heart sound present PERIPHERAL PULSES: Peripheral pulses 2+ throughout GI: COMMON NORMALS: Normal to inspection, nondistended, normoactive bowel sounds present, Soft to palpation, non-tender, No hepatosplenomegaly present and no masses AUSCULTATION: Yes normoactive bowel sounds PALPATION: Yes Soft to palpation and Yes No hepatosplenomegaly present RECTAL EXAM: Yes deferred Extremity: COMMON NORMALS: no clubbing, cyanosis or edema and no pedal edema Neuro: COMMON NORMALS: patient oriented x3 Urinary Catheter Management: Soliz: Cath Placed During This Visit: yes, but has since been removed by the nurse Reason for Continuing Indwelling Catheter: Decision to DC Catheter Urinary Catheter Date of Insertion: 08/06/21 Urinary Catheter Time of Insertion: 13:18 Date Urinary Catheter Removed: 08/07/21 Time Urinary Catheter Discontinued: 10:04 Data : 08/10/21 04:31 08/10/21 04:31 A&P Assessment and plan (1) Acute lower GI bleeding: Painless acute lower GI bleeding: Hemoglobin stable. We will transfuse if drops less than 8. Check hemoglobin daily. Continue holding off on anticoagulation, cilostazol and aspirin for now. Protonix 40 mg twice daily. Status: Acute (2) Colonic mass: Post colonic mass resection day 1. Anticoagulation, diet, physical therapy, pain medication as per surgical team. Started on Lovenox, clear liquid diet. DC Soliz catheter. Status: Acute (3) CKD (chronic kidney disease): MARION present on admission. Now has resolved. Baseline creatinine 1.5. Creatinine back to baseline today. Continue with gentle IV hydration. Medical reconciliation done for nephrotoxic drugs. Renal ultrasound appreciated. Status: Acute (4) Arthritis: Holding prednisone for now to facilitate postsurgical healing. We will monitor blood pressures. If blood pressures drop we will have to reintroduce prednisone. Status: Acute (5) Peripheral vascular disease: Status: Acute Plan 81 year old male? with PMH seronegative arthritis, follows with rheumatology as outpatient, presenting with lower GI bleed. #Acute LGI bleed: Continue to monitor H&H Transfuse if hemoglobin is less than 7.5 Continue Protonix 40 mg twice daily Continue to hold aspirin and cilostazol Xarelto has been resumed #Colonic mass: S/P colonic resection. 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 On G/I Soft Appreciate surgery input #Hypertension: Continue amlodipine, continue atenolol. #History of PAD: On aspirin and cilostazol, currently on hold Full code. DVT prophylaxis.Not needed On Xarelto Attestations Medical Necessity Statement*: Patient is in the hospital for management of GI bleed, need for hb monitoring post resumption of Ac. Coding Level of Care Code Acute Chief Meteorologist for Tiffanie Xie Diagnoses Acute lower GI bleeding K92.2 Colonic mass K63.89 CKD (chronic kidney disease) N18.9 Arthritis M19.90 Peripheral vascular disease I73.9
[2021-08-10] MEDS: CLONazepam 0.5 mg Tablet PO (23:08)
[2021-08-11] VITALS (10 sets, daily range): BP systolic 132–143; BP diastolic 66–79; PULSE 75–101; RESP 16–18; TEMP 36.8–37.6; O2SAT 95–97
[2021-08-11] MEDS: ipratropium-albuterol 3 mL Neb INHALATION ×2 (02:59→08:41)
--- NOTE | 2021-08-11 04:44 | PC.NURSE ---
SHIFT SUMMARY Very pleasant. Has had a good night. Taking po Hydrocodone for incisional/abdominal pain. Umbilical incison as well as X2 stab incisions R abd all C&D with dermabond closure. Is taking po fluids well and urinating large output. No BM this shift but continues to pass flatus. Says he had no problems with advance in diet yesterday. Is anxious to go home. Did have some trouble getting to sleep. Clonazepam was requested. Med had auto discontinued per renew policy. Dr was called to get restarted. Says it worked well and was able to rest after receiving it
[2021-08-11 05:10] LABS: Basophils % 0.2 %; Eosinophils # 0.3 10^3/uL (0.0-0.8); Eosinophils % 5.3 %; Hematocrit 28.5 % (42.0-52.0); Hemoglobin 8.5 g/dL (11.7-16.6); Lymphocytes # 0.7 10^3/uL (0.8-4.8); Lymphocytes % 15.2 %; Mean Corpuscular HGB Conc 29.8 g/dL (30.0-36.0); Mean Corpuscular Hemoglobin 29.7 pg (28.0-34.0); Mean Corpuscular Volume 99.7 fl (80-94); Mean Platelet Volume 9.9 fL (7.4-10.4); Monocytes # 0.3 10^3/uL (0.2-0.9); Neutrophils # 3.46 10^3/uL (1.8-7.7); Neutrophils % 71.1 %; Nucleated Red Blood Cells % 0 %; Platelet Count 162 10^3/cmm (130-400); Red Blood Count 2.86 10^6/uL (4.1-5.3); Red Cell Distribution Width 17.7 % (12.1-15.1); White Blood Count 4.9 10^3/uL (4.0-10.0)
[2021-08-11 06:03] LABS: Anion Gap 18.9 (5-19); Blood Urea Nitrogen 15 mg/dL (8-23); Calcium 9.4 mg/dL (8.5-10.5); Carbon Dioxide 20 mmol/L (22-29); Chloride 104 mmol/L (98-107); Glucose 116 mg/dL (65-115); Osmolality Calculated 290 mOsm/kg (285-295); Potassium 3.9 mmol/L (3.5-5.1); Sodium 139 mmol/L (136-145)
[2021-08-11 06:04] LABS: Creatinine Clr Calc Pharmacy 48.9296
[2021-08-11] MEDS: diclofenac 1% Topical Gel 100 gm 1 APPLIC TOPICAL (08:20)
[2021-08-11] MEDS: RIVAROXABAN 2.5 MG 2.5 EACH PO (08:21)
[2021-08-11] MEDS: fexofenadine 60 mg Tablet PO (08:22)
[2021-08-11] MEDS: atorvastatin 40 mg Tablet 80 MG PO (08:22)
[2021-08-11] MEDS: atenolol 50 mg Tablet 25 MG PO (08:22)
[2021-08-11] MEDS: pantoprazole DR 40 mg Tablet PO (08:22)
[2021-08-11] MEDS: allopurinol 300 mg Tablet PO (08:22)
[2021-08-11] MEDS: gabapentin 100 mg Capsule PO (08:22)
[2021-08-11] MEDS: sennosides-docusate Tablet 1 TAB PO (08:23)
[2021-08-11] MEDS: tamsulosin 0.4 mg Capsule PO (08:23)
[2021-08-11] MEDS: isosorbide mononitrate ER 60 mg Tablet PO (08:23)
[2021-08-11] MEDS: fluticasone nasal spray 16gm Btl 1 SPRAY INTRANASAL (08:23)
[2021-08-11] MEDS: amlodipine 5 mg Tablet PO (08:23)
--- NOTE | 2021-08-11 10:03 | PM.PN ---
Subjective Subjective: Patient tolerating GI soft diet, no nausea vomiting, passing flatus Vitals/I&O/Wt Last Vital Signs Temp 98.6 F 08/11/21 08:00 Pulse 101 H 08/11/21 08:50 Resp 18 08/11/21 08:41 BP 140/79 08/11/21 08:00 Pulse Ox 96 08/11/21 08:42 08/10/21 08/11/21 08/11/21 22:59 06:59 14:59 Intake Total 240 / 1260 300 / 1260 Output Total 1200 / 2500 1300 / 2500 Balance -960 / -1240 -1000 / -1240 Physical Exam Narrative: Abdomen: Soft, mildly tender, nondistended, incision clean dry and intact Urinary Catheter Management: Soliz: Cath Placed During This Visit: yes, but has since been removed by the nurse Reason for Continuing Indwelling Catheter: Decision to DC Catheter Urinary Catheter Date of Insertion: 08/06/21 Urinary Catheter Time of Insertion: 13:18 Date Urinary Catheter Removed: 08/07/21 Time Urinary Catheter Discontinued: 10:04 Data : 08/11/21 04:13 08/11/21 04:13 A&P Assessment and plan (1) S/P laparoscopic-assisted sigmoidectomy: 81-year-old male status post sigmoid colectomy with postop ileus, had bowel movements yesterday Patient's hemoglobin has remained stable on Xarelto DC home today, start aspirin later this week and cilostazol next week Status: Acute Attestations Medical Necessity Statement*: DC home today Coding Level of Care Code Acute Recycling Operations Manager for Chg Fwd 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
--- NOTE | 2021-08-11 10:37 | PC.SOCIAL ---
IMM update IMM updated with patient and . Copy Pg 2 provided. Verbalized an understanding. Initialled, dated, timed, and placed in chart.
== END 2021-08-11 11:04 | disposition home or self-care (01) | DRG 329 ==
LOC: ER 04:42 → MEDSURG 05:14 → ICU 08-06 15:08 → MEDSURG 08-07 17:52
PROVIDERS: Student in an Organized Health Care Education/Training Program; Surgery; Admitting Provider Student in an Organized Health Care Education/Training Program; Emergency Provider Emergency Medicine; PCP Family Medicine; Visit Provider Internal Medicine
PROC: 0DJD8ZZ Inspection of Lower Intestinal Tract, Via Natural or Artificial Opening Endoscopic (ICD-10-PCS; CPT 45378; principal; 2021-08-05 12:00)
PROC: 0DTN4ZZ Resection of Sigmoid Colon, Percutaneous Endoscopic Approach (ICD-10-PCS; CPT 44204; principal; 2021-08-06 11:00)
DX: C18.7 Malignant neoplasm of sigmoid colon (principal); K57.31 Diverticulosis of large intestine without perforation or abscess with bleeding; I13.0 Hypertensive heart and chronic kidney disease with heart failure and stage 1 through stage 4 chronic kidney disease, or unspecified chronic kidney disease; K92.1 Melena; N17.9 Acute kidney failure, unspecified; Z87.891 Personal history of nicotine dependence; N18.9 Chronic kidney disease, unspecified; Z79.52 Long term (current) use of systemic steroids; M19.90 Unspecified osteoarthritis, unspecified site; Z79.82 Long term (current) use of aspirin; Z79.01 Long term (current) use of anticoagulants; I50.9 Heart failure, unspecified; I73.9 Peripheral vascular disease, unspecified; J44.9 Chronic obstructive pulmonary disease, unspecified; Z95.5 Presence of coronary angioplasty implant and graft; M06.09 Rheumatoid arthritis without rheumatoid factor, multiple sites
CPT/HCPCS: 36415; 45331; 51702; 74176; 76770; 80048; 80053; 82378; 85014; 85018; 85025; 85610; 86304; 86850; 86900; 86920; 87635; 88300; 88305; 88309; 88341; 88342; 93306; 94640; 94664; 96372; 99285; C9113; C9290; J1100; J1650; J2405; J2543; J2704; J2710; J3010; J3490; J7030; J7512

== ENCOUNTER → 2021-09-01 14:24 | Outpatient (BNVA) | payer MEDICARE, SELFPAY | PROVIDERS: PCP Family Medicine; Visit Provider Internal Medicine | DX: M19.90 Unspecified osteoarthritis, unspecified site (principal); N18.9 Chronic kidney disease, unspecified; Z79.899 Other long term (current) drug therapy; G62.9 Polyneuropathy, unspecified; Z79.01 Long term (current) use of anticoagulants; Z87.891 Personal history of nicotine dependence | CPT/HCPCS: 99214 ==

== ENCOUNTER → 2021-09-11 10:00 | Outpatient (BNVA) | payer MEDICARE, SELFPAY | PROVIDERS: PCP Family Medicine; Visit Provider Internal Medicine Critical Care Medicine | DX: J45.909 Unspecified asthma, uncomplicated (principal); I50.20 Unspecified systolic (congestive) heart failure; U09.9 Post COVID-19 condition, unspecified; J12.89 Other viral pneumonia; M19.90 Unspecified osteoarthritis, unspecified site; C18.7 Malignant neoplasm of sigmoid colon; Z87.891 Personal history of nicotine dependence | CPT/HCPCS: 99214 ==

== ENCOUNTER → 2021-09-29 13:03 | Outpatient (BNVA) | payer MEDICARE, SELFPAY | PROVIDERS: PCP Family Medicine; Visit Provider Surgery | DX: Z98.890 Other specified postprocedural states (principal); C18.7 Malignant neoplasm of sigmoid colon; C18.9 Malignant neoplasm of colon, unspecified ==

== ENCOUNTER 2021-10-02 15:00 | Outpatient (CLI) | payer MEDICARE, SELFPAY ==
[2021-10-02 16:27] LABS: Basophils % 0.2 %; Eosinophils # 0.1 10^3/uL (0.0-0.8); Hematocrit 31.9 % (42.0-52.0); Hemoglobin 9.3 g/dL (11.7-16.6); Lymphocytes # 0.7 10^3/uL (0.8-4.8); Lymphocytes % 14.2 %; Mean Corpuscular HGB Conc 29.2 g/dL (30.0-36.0); Mean Corpuscular Hemoglobin 27.7 pg (28.0-34.0); Mean Corpuscular Volume 94.9 fl (80-94); Mean Platelet Volume 9.6 fL (7.4-10.4); Monocytes # 0.3 10^3/uL (0.2-0.9); Monocytes % 5.7 %; Neutrophils % 77.3 %; Nucleated Red Blood Cells % 0 %; Platelet Count 163 10^3/cmm (130-400); Red Blood Count 3.36 10^6/uL (4.1-5.3); Red Cell Distribution Width 17.8 % (12.1-15.1); White Blood Count 4.9 10^3/uL (4.0-10.0)
[2021-10-02 16:59] LABS: Alanine Aminotransferase 11 U/L (0-41); Albumin Level 3.9 g/dL (3.5-5.2); Alkaline Phosphatase 78 IU/L (40-130); Anion Gap 14.2 (5-19); Aspartate Amino Transferase 19 U/L (0-40); Blood Urea Nitrogen 28 mg/dL (8-23); Calcium 8.6 mg/dL (8.5-10.5); Carbon Dioxide 23 mmol/L (22-29); Chloride 106 mmol/L (98-107); Globulin 2.8 g/dL (1.3-4.6); Glucose 152 mg/dL (65-115); Osmolality Calculated 296 mOsm/kg (285-295); Potassium 4.2 mmol/L (3.5-5.1); Sodium 139 mmol/L (136-145); Total Bilirubin 0.2 mg/dL (0.15-1.2); Total Protein 6.7 g/dL (6.6-8.7)
[2021-10-02 17:55] LABS: Erythrocyte Sedimentation Rate 4 mm/hr (0-10)
== END 2021-10-02 15:01 | disposition home or self-care (01) ==
LOC: RAD 15:07
PROVIDERS: PCP Family Medicine; Visit Provider Internal Medicine
DX: N18.9 Chronic kidney disease, unspecified (principal); M19.90 Unspecified osteoarthritis, unspecified site; Z79.899 Other long term (current) drug therapy
CPT/HCPCS: 80053; 85025; 85651; 86140

== ENCOUNTER → 2021-10-20 14:06 | Outpatient (BNVA) | payer MEDICARE, SELFPAY | PROVIDERS: PCP Family Medicine; Visit Provider Internal Medicine | DX: M19.90 Unspecified osteoarthritis, unspecified site (principal); G62.9 Polyneuropathy, unspecified; N18.9 Chronic kidney disease, unspecified; I73.9 Peripheral vascular disease, unspecified; Z79.899 Other long term (current) drug therapy; Z87.891 Personal history of nicotine dependence | CPT/HCPCS: 73560; 99214 ==

== ENCOUNTER → 2021-11-26 11:52 | Outpatient (BNVA) | payer MEDICARE, SELFPAY | PROVIDERS: PCP Family Medicine; Visit Provider Internal Medicine | DX: M19.90 Unspecified osteoarthritis, unspecified site (principal); I73.9 Peripheral vascular disease, unspecified; N18.9 Chronic kidney disease, unspecified; D64.9 Anemia, unspecified | CPT/HCPCS: 36415; 80053; 85025; 85651; 86140; 99214 ==

== ENCOUNTER 2022-01-02 05:46 | Day surgery (SDC) | payer MEDICARE, SELFPAY ==
--- NOTE | 2021-08-19 10:10 | PM.DCS ---
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 with seronegative arthritis, follows with rheumatology as outpatient, presenting with lower GI bleed that started yesterday. Described as bright red blood per rectum that started at midnight. He woke up in a pool of blood and has had large amount of fresh blood and clots. 2 further episodes since presenting into ER. Denies abdominal pain. Currently on ASA, cilostazol and xarelto for a h/o CAD and PAD with femoral stents. Per , vascular surgeon at [facility] has wanted him to continue all 3. No recent change in medications except that he has recently resumed his indomethacin TID due to worsening arthritis pain after being off for a month due to CKD. No h/o past colonoscopy. 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 Recently over the past 6 weeks she has noticed some drops of blood at the end of defecation for which referral was provided to GI services at [facility] howevere patient has not been there yet. No h/o UGIE. no recent weight loss, change in appetite. Hospital Course : 81 year old male? with PMH seronegative arthritis, follows with rheumatology as outpatient, presenting with lower GI bleed. #Acute LGI bleed:s/p colonscopy showed diverticulosis as well as colonic mass. H&H was monitored, Protonix 40 mg twice daily was continued.Xaralto was initially kept on hold.It was resumed on discharge. 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 Darcie responded well to above medical management and is being discharged in stable condition to home. Physical Exam Const: COMMON NORMALS: patient oriented x3 HENMT: COMMON NORMALS: normocephalic and atraumatic HEAD & SCALP: normocephalic and atraumatic Resp: COMMON NORMALS: normal respiratory effort, No retractions, No use of accessory muscles and clear to auscultation bilaterally EFFORT & INSPECTION: Yes symmetric chest movement AUSCULTATION: clear to auscultation bilaterally Cardio: COMMON NORMALS: regular rate, regular rhythm, S1 normal heart sound present, S2 normal heart sound present, No gallops present (Cardio), No murmurs present (Cardio), No rub (Cardio) and Peripheral pulses 2+ throughout RATE: regular rate RHYTHM: regular rhythm HEART SOUNDS: S1 normal heart sound present and S2 normal heart sound present PERIPHERAL PULSES: Peripheral pulses 2+ throughout GI: COMMON NORMALS: Normal to inspection, nondistended, normoactive bowel sounds present, Soft to palpation, non-tender, No hepatosplenomegaly present and no masses AUSCULTATION: Yes normoactive bowel sounds PALPATION: Yes Soft to palpation and Yes No hepatosplenomegaly present RECTAL EXAM: Yes deferred Extremity: COMMON NORMALS: no clubbing, cyanosis or edema and no pedal edema Neuro: COMMON NORMALS: patient oriented x3 Discharge Plan Discharge Patient Disposition: Home Condition: Stable Prescriptions: No Action fluticasone propionate [Flonase Allergy Relief] 50 mcg/actuation spray,suspension 1 spray intranasal BID 30 Days Qty: 16 3RF Rx Instructions: administer into each nostril amlodipine 5 mg tablet 5 mg PO DAILY 0RF atenolol 25 mg tablet 25 mg PO DAILY 0RF calcium carb-D3-mag [id number] iv-xjho-ig-mg tablet 1 tab PO DAILY 0RF Rx Instructions: administer with a meal indomethacin 25 mg capsule 25 mg PO TID 0RF Rx Instructions: administer with food or milk omega-3 fatty acids [Super Lorenzo-3] 1,000 mg capsule 1,000 mg PO DAILY 0RF triamcinolone acetonide 0.1 % cream 1 applic topical DAILY 0RF diphenhydramine-acetaminophen [Tylenol PM Extra Strength] 25-500 mg tablet 1 tab PO Q6H PRN (Reason: Pain) 0RF sulfasalazine 500 mg tablet 0.5 g PO DAILY Qty: 30 1RF Rx Instructions: give with food (meal/snack) prednisone 5 mg tablet See Rx Instructions PO DAILY Qty: 60 2RF Rx Instructions: 1-2 tablets daily PO daily; diclofenac sodium [Voltaren Arthritis Pain] 1 % gel 4 g topical QID Qty: 100 3RF Rx Instructions: apply to single knee, ankle, foot; for foot includes sole/toes/top of foot albuterol sulfate 90 mcg/actuation HFA aerosol inhaler 2 puff inhalation QID PRN (Reason: shortness of breath or wheezing) 30 Days Qty: 18 3RF budesonide-formoterol [Symbicort] 160-4.5 mcg/actuation HFA aerosol inhaler See Rx Instructions .ROUTE .COMPLEX Qty: 11 3RF Dose Instruction: INHALE 2 PUFFS BY MOUTH EVERY 12 HOURS FOR 30 DAYS Rx Instructions: INHALE 2 PUFFS BY MOUTH EVERY 12 HOURS FOR 30 DAYS gabapentin 100 mg capsule 100 mg PO DAILY Qty: 30 2RF Rx Instructions: 1 tab before bed. fexofenadine 60 mg Tablet 60 mg PO BID 0RF Vitamin C 500 mg Tablet 250 mg PO BID 0RF lansoprazole 15 mg Capsule,Delayed Release(Dr/Ec) 15 mg PO DAILY 0RF cranberry 400 mg Capsule 400 mg PO DAILY 0RF Rx Instructions: administer with a meal allopurinol 300 mg tablet 300 mg PO DAILY 0RF furosemide 20 mg tablet 20 mg PO PRN PRN (Reason: Edema) 0RF multivitamin with minerals Tablet 1 tab PO DAILY 0RF elderberry fruit and flower 460-115 mg Capsule 1 cap PO BID 0RF hydrocodone-acetaminophen 5-325 mg tablet 1 tab PO Q6H PRN (Reason: pain) Qty: 20 0RF Zofran 4 mg tablet 4 mg PO Q6H PRN (Reason: nausea and vomiting) Qty: 20 0RF Senna with Docusate Sodium 8.6-50 mg tablet 1 tab-cap PO BID Qty: 30 0RF aspirin 81 mg Tablet,Delayed Release (Dr/Ec) 81 mg PO DAILY 0RF Hold Instructions: Resume on 08/18/21. cilostazol 100 mg tablet 100 mg PO BID 0RF albuterol sulfate 2.5 mg /3 mL (0.083 %) Solution For Nebulization 2.5 mg INHALATION QID PRN (Reason: Shortness Of Breath) 0RF clonazepam 0.5 mg tablet 0.5 mg PO Q12H PRN (Reason: Anxiety) 0RF isosorbide mononitrate 60 mg tablet extended release 24 hr 60 mg PO DAILY 0RF tamsulosin 0.4 mg capsule 0.4 mg PO DAILY 0RF nitroglycerin [Nitrostat] 0.4 mg Tablet, Sublingual 0.4 mg SUBLINGUAL Q5M PRN (Reason: Chest Pain) 0RF vitamin B complex Tablet 1 tab PO BID 0RF garlic Tablet 2 tab PO BID 0RF rosuvastatin 20 mg tablet 20 mg PO DAILY 0RF Xarelto 2.5 mg tablet 2.5 mg PO BID 0RF Vitamin D3 2 cap PO BID 0RF Discharge Orders: Discharge Order (Routine); Ordered 08/19/21 Ordered By: Herman Obando Patient Instructions: GI Discharge Instructions Discharge Attestations Time Spent in Discharge Care*: greater than 30 min Quality Metrics Clinical Quality Measures [ No reported AMI, CVA or VTE this stay] Coding Level of Care Code Acute Chg FW DC note
[2021-11-07 11:35] VITALS: BMI 27.0
[2021-12-31 09:53] VITALS: BMI 25.1
[2022-01-02 06:26] VITALS: BP 114/50; PULSE 83; RESP 18; TEMP 36.3; O2SAT 97
[2022-01-02] MEDS: sodium chloride 0.9% 1,000 ML 30 ML IV (06:30)
--- NOTE | 2022-01-02 06:52 | W.PM.OPSFHP ---
Same Day Surgery H&P Indication for Procedure/HPI DATE OF PROCEDURE: January 02, 2022 CHIEF COMPLAINT/INDICATIONFOR SURGICAL PROCEDURE: colon cancer - colonoscopy PREOP DIAGNOSIS: diagnostic PLANNED PROCEDURE: Operation Date: 01/02/22 07:00 Proposed Procedures p Colonoscopy 67053/c18.7(Not Applicable) - Ezekiel Delarosa MD Medications/Allergies* Home Medications Medication Instructions Recorded Confirmed Type Vitamin D3 2 cap PO BID 04/23/20 12/31/21 History aspirin 81 mg tablet,delayed 81 mg PO DAILY 04/23/20 12/31/21 History release cilostazol 100 mg tablet 100 mg PO BID 04/23/20 12/31/21 History clonazepam 0.5 mg tablet 0.5 mg PO Q12H PRN 04/23/20 12/31/21 History garlic 2 tab PO BID 04/23/20 12/31/21 History isosorbide mononitrate 60 mg 60 mg PO DAILY 04/23/20 12/31/21 History tablet,extended release 24 hr nitroglycerin 0.4 mg sublingual 0.4 mg SUBLINGUAL Q5M PRN 04/23/20 12/31/21 History tablet (Nitrostat) rivaroxaban 2.5 mg tablet (Xarelto) 2.5 mg PO BID 04/23/20 12/31/21 History rosuvastatin 20 mg tablet 20 mg PO DAILY 04/23/20 12/31/21 History tamsulosin 0.4 mg capsule 0.4 mg PO DAILY 04/23/20 12/31/21 History vitamin B complex 1 tab PO BID 04/23/20 12/31/21 History atenolol 25 mg tablet 25 mg PO DAILY 05/12/21 12/31/21 History calcium carb-vit B5-upetgvdce-qujo 1 tab PO DAILY 05/12/21 12/31/21 History 333 mg-200 unit-133 mg-5 mg tablet indomethacin 25 mg capsule 25 mg PO TID 05/12/21 12/31/21 History allopurinol 300 mg tablet 300 mg PO DAILY 08/04/21 12/31/21 History ascorbic acid (vitamin C) 500 mg 250 mg PO BID 08/04/21 12/31/21 History tablet (Vitamin C) cranberry 400 mg capsule 400 mg PO DAILY 08/04/21 12/31/21 History elderberry fruit 460 mg-elderberry 1 cap PO BID 08/04/21 12/31/21 History flower 115 mg capsule fexofenadine 60 mg tablet 60 mg PO BID 08/04/21 12/31/21 History furosemide 20 mg tablet 20 mg PO DAILY PRN 08/04/21 12/31/21 History lansoprazole 15 mg capsule,delayed 15 mg PO DAILY 08/04/21 12/31/21 History release (Prevacid 24Hr) sulfasalazine 500 mg tablet 0.5 g PO BID 11/07/21 12/31/21 History (Azulfidine) acetaminophen 500 mg tablet 1,000 mg PO Q6H PRN 01/02/22 01/02/22 History nifedipine 30 mg tablet,extended 30 mg PO DAILY 01/02/22 01/02/22 History release 24 hr Allergies/Adverse Reactions Allergy/AdvReac Type Severity Reaction Status Date / Time iodine Allergy ALGY-Bliste Verified 12/31/21 09:48 r morphine Allergy ALGY-Rash Verified 12/31/21 09:48 povidone-iodine Allergy Unknown Verified 12/31/21 09:48 [From Betadine] soap [From Betadine] Allergy Unknown Verified 12/31/21 09:48 Current Medications: Generic Name Dose Route Start Last Admin Trade Name Freq PRN Reason Stop Dose Admin Sodium Chloride 1,000 mls @ 30 mls/hr 01/02/22 06:00 01/02/22 06:30 Sodium Chloride 0.9% IV 01/03/22 05:59 30 mls/hr .Q24H NORMAN Administration Pertinent History/Comorbid Conditions* Medical History (Updated 11/26/21 @ 12:45 by Jn Sanchez MD) Adenocarcinoma of sigmoid colon CHF (congestive heart failure) CKD (chronic kidney disease) Peripheral vascular disease Pneumonia due to COVID-19 virus Surgical History (Updated 08/19/21 @ 08:11 by Ezekiel Delarosa MD) H/O shoulder replacement History of colonoscopy History of coronary angioplasty with insertion of stent 2003 History of right hip replacement S/P laparoscopic-assisted sigmoidectomy (08/06/21) S/P peripheral artery angioplasty with stent placement 2015 Family History (Updated 05/12/21 @ 11:14 by May Sebastian LPN) Rheumatoid arthritis Sister Mother Father Brother Hyperlipidemia Sister Mother Father Brother Heart attack Brother Cancer Sister Hypertension Sister Mother Father Brother Stroke Father Denies family history of Diabetes Lupus Social History Smoking and tobacco status: former smoker Quit status (tobacco): has quit using tobacco Year quit tobacco: 1989 - PPD x 30 Years Second hand smoke exposure: Yes Smoking risk assessment/counseling performed?: No Alcohol intake: current Alcohol intake frequency: few times a week Alcohol type: wine Desire information about alcohol rehabilitation?: No Counseling given: No Desire information about substance/drug rehabilitation?: No Counseling given: No Lives independently: Yes Household members: spouse Marital status: service: Yes Current occupational status: retired History of recent travel: No Current gender identity: Male Pertinent Exam Findings alert, oriented x 3 and regular rate & rhythm Recommendations Surgery/Procedure today Coding Level of Care Code Acute Financial Sales Associate for Tiffanie Xie
--- NOTE | 2022-01-02 06:53 | P.ANESASSM_ITS ---
Pre-Anesthetic Assessment Height/Weight: Height 1.75 m Weight 77.111 kg Temp Pulse Resp BP Pulse Ox 97.4 F L 83 18 114/50 97 01/02/22 06:26 01/02/22 06:26 01/02/22 06:26 01/02/22 06:26 01/02/22 06:26 Preop Diagnosis: diagnostic Operation Date: 01/02/22 07:00 Proposed Procedures p Colonoscopy 65202/c18.7(Not Applicable) - Ezekiel Delarosa MD Familial anesthetic complications: none Was Beta Karen taken within 24 hours: Yes Was Clonidine taken within 24 hours: N/A Last intake: Intake Last Liquid Date 01/01/22 Last Liquid Time 23:00 Last Solid Date 12/31/21 Last Solid Time 15:00 Social No alcohol and No tobacco Exam alert and oriented x 3 Airway Submandibular: within normal limits Cervical ROM: within normal limits Mallampati: Class II Dentition: false Pulmonary Asthma and Shortness of Breath CV/HEM Coronary Artery Disease (2 heart stents), Congestive Heart Failure, Hypertension and Peripheral Vascular Disease (2 left leg stents) Chronic Renal Insufficiency Hepatic None reported GI Gastroesophageal Reflux Disease Metabolic Hyperlipidemia [facility] [place], [place] Osteoarthritis/DJD Anesthetic Plan ASA status: 3 Anesthesia: Anesthesia Evaluation and MAC Risk of > 500 ml blood loss (7ml/kg in children): No Medications/Allergies Home Medications Medication Instructions Recorded Confirmed Last Taken Type Vitamin D3 2 cap PO BID 04/23/20 12/31/21 01/01/22 History aspirin 81 mg tablet,delayed 81 mg PO DAILY 04/23/20 12/31/21 01/01/22 History release cilostazol 100 mg tablet 100 mg PO BID 04/23/20 12/31/21 01/01/22 History clonazepam 0.5 mg tablet 0.5 mg PO Q12H PRN 04/23/20 12/31/21 Unknown History garlic 2 tab PO BID 04/23/20 12/31/21 01/01/22 History isosorbide mononitrate 60 mg 60 mg PO DAILY 04/23/20 12/31/21 01/01/22 History tablet,extended release 24 hr nitroglycerin 0.4 mg sublingual 0.4 mg SUBLINGUAL Q5M PRN 04/23/20 12/31/21 Unknown History tablet (Nitrostat) rivaroxaban 2.5 mg tablet (Xarelto) 2.5 mg PO BID 04/23/20 12/31/21 01/01/22 History rosuvastatin 20 mg tablet 20 mg PO DAILY 04/23/20 12/31/21 01/01/22 History tamsulosin 0.4 mg capsule 0.4 mg PO DAILY 04/23/20 12/31/21 01/01/22 History vitamin B complex 1 tab PO BID 04/23/20 12/31/21 01/01/22 History atenolol 25 mg tablet 25 mg PO DAILY 05/12/21 12/31/21 01/01/22 History calcium carb-vit [id number]-[id number] 1 tab PO DAILY 05/12/21 12/31/21 01/01/22 History 333 mg-200 unit-133 mg-5 mg tablet indomethacin 25 mg capsule 25 mg PO TID 05/12/21 12/31/21 01/01/22 History albuterol sulfate 90 mcg/actuation 2 puff INHALATION QID PRN 30 Days 05/15/21 12/31/21 01/01/22 Rx aerosol inhaler #18 g Symbicort 160 mcg-4.5 See Rx Instructions .ROUTE 06/23/21 12/31/21 01/01/22 Rx mcg/actuation HFA aerosol inhaler .COMPLEX #11 g NS (budesonide-formoterol) allopurinol 300 mg tablet 300 mg PO DAILY 08/04/21 12/31/21 01/01/22 History ascorbic acid (vitamin C) 500 mg 250 mg PO BID 08/04/21 12/31/21 01/01/22 History tablet (Vitamin C) cranberry 400 mg capsule 400 mg PO DAILY 08/04/21 12/31/21 01/01/22 History elderberry fruit 460 mg-elderberry 1 cap PO BID 08/04/21 12/31/21 01/01/22 History flower 115 mg capsule fexofenadine 60 mg tablet 60 mg PO BID 08/04/21 12/31/21 01/01/22 History furosemide 20 mg tablet 20 mg PO DAILY PRN 08/04/21 12/31/21 01/01/22 History lansoprazole 15 mg capsule,delayed 15 mg PO DAILY 08/04/21 12/31/21 01/01/22 History release (Prevacid 24Hr) fluticasone propionate 50 1 spray INTRANASAL BID 30 Days #16 08/29/21 12/31/21 01/01/22 Rx mcg/actuation nasal g spray,suspension (Flonase Allergy Relief) prednisone 5 mg tablet See Rx Instructions PO DAILY #60 10/03/21 12/31/21 01/01/22 Rx tab gabapentin 300 mg capsule 300 mg PO DAILY #30 cap 10/20/21 12/31/21 01/01/22 Rx sulfasalazine 500 mg tablet 0.5 g PO BID 11/07/21 12/31/21 01/01/22 History (Azulfidine) acetaminophen 500 mg tablet 1,000 mg PO Q6H PRN 01/02/22 01/02/22 01/01/22 History nifedipine 30 mg tablet,extended 30 mg PO DAILY 01/02/22 01/02/22 01/01/22 History release 24 hr Allergies Allergy/AdvReac Type Severity Reaction Status Date / Time iodine Allergy ALGY-Bliste Verified 12/31/21 09:48 r morphine Allergy ALGY-Rash Verified 12/31/21 09:48 povidone-iodine Allergy Unknown Verified 12/31/21 09:48 [From Betadine] soap [From Betadine] Allergy Unknown Verified 12/31/21 09:48 Current Medications Generic Name Dose Route Start Last Admin Trade Name Freq PRN Reason Stop Dose Admin Sodium Chloride 1,000 mls @ 30 mls/hr 01/02/22 06:00 01/02/22 06:30 Sodium Chloride 0.9% IV 01/03/22 05:59 30 mls/hr .Q24H NORMAN Administration PFSH Anesthesia Medical History Adenocarcinoma of sigmoid colon CHF (congestive heart failure) CKD (chronic kidney disease) Peripheral vascular disease Pneumonia due to COVID-19 virus Surgical History H/O shoulder replacement History of colonoscopy History of coronary angioplasty with insertion of stent 2003 History of right hip replacement S/P laparoscopic-assisted sigmoidectomy (08/06/21) S/P peripheral artery angioplasty with stent placement 2015 Family History Sister Cancer Hyperlipidemia Hypertension Rheumatoid arthritis Mother Hyperlipidemia Hypertension Rheumatoid arthritis Father Hyperlipidemia Hypertension Stroke Rheumatoid arthritis Brother Hyperlipidemia Hypertension Heart attack Rheumatoid arthritis Denies family history of Diabetes Lupus Social History Smoking and tobacco status: former smoker Quit status (tobacco): has quit using tobacco Year quit tobacco: 1989 x 30 Years Second hand smoke exposure: Yes Smoking risk assessment/counseling performed?: No Alcohol intake: current Alcohol intake frequency: few times a week Alcohol type: wine Desire information about alcohol rehabilitation?: No Counseling given: No Desire information about substance/drug rehabilitation?: No Counseling given: No Lives independently: Yes Household members: spouse Marital status: service: Yes Current occupational status: retired History of recent travel: No Current gender identity: Male Data Anesthesia Cardiac Studies: Echocardiogram 08/05/21
[2022-01-02 07:24] VITALS: BP 90/52; PULSE 72; RESP 16; TEMP 36.2; O2SAT 98
[2022-01-02 07:34] VITALS: BP 104/60; PULSE 75; RESP 18; O2SAT 95
--- NOTE | 2022-01-02 12:17 | ANE.PACU2 ---
Inpatient post-anesthesia follow up: Airway intact: Yes Vital signs: Temperature 97.1 F Pulse Rate 75 Respiratory Rate 18 Blood Pressure 104/60 Pulse Oximetry 95 Oxygen Delivery Me thod Room Air Oxygen Flow Rate Fraction of Inspir ed Oxygen Hydration adequate: Yes Nausea and vomiting: No Pain level: 1 Mental status: Baseline
== END 2022-01-02 07:49 | disposition home or self-care (01) ==
PROVIDERS: PCP Family Medicine; Visit Provider Surgery
PROC: 0DJD8ZZ Inspection of Lower Intestinal Tract, Via Natural or Artificial Opening Endoscopic (ICD-10-PCS; CPT 45378; principal; 2022-01-02 07:00)
DX: C18.7 Malignant neoplasm of sigmoid colon (principal); K64.8 Other hemorrhoids; K57.30 Diverticulosis of large intestine without perforation or abscess without bleeding; D12.2 Benign neoplasm of ascending colon; Z90.49 Acquired absence of other specified parts of digestive tract; I13.0 Hypertensive heart and chronic kidney disease with heart failure and stage 1 through stage 4 chronic kidney disease, or unspecified chronic kidney disease; N18.9 Chronic kidney disease, unspecified; I50.9 Heart failure, unspecified; I73.9 Peripheral vascular disease, unspecified; Z86.16 Personal history of COVID-19; Z95.5 Presence of coronary angioplasty implant and graft; Z87.891 Personal history of nicotine dependence; J45.909 Unspecified asthma, uncomplicated; I25.10 Atherosclerotic heart disease of native coronary artery without angina pectoris; Z79.82 Long term (current) use of aspirin
CPT/HCPCS: 45385; 88305; J2704; J7030

== ENCOUNTER → 2022-01-12 11:47 | Outpatient (BNVA) | payer MEDICARE, SELFPAY | PROVIDERS: PCP Family Medicine; Visit Provider Surgery | DX: Z09 Encounter for follow-up examination after completed treatment for conditions other than malignant neoplasm (principal) | CPT/HCPCS: 99212 ==

== ENCOUNTER → 2022-03-03 13:37 | Outpatient (BNVA) | payer MEDICARE, SELFPAY | PROVIDERS: PCP Family Medicine; Visit Provider Internal Medicine | DX: M19.90 Unspecified osteoarthritis, unspecified site (principal); I73.9 Peripheral vascular disease, unspecified; N18.9 Chronic kidney disease, unspecified; D64.9 Anemia, unspecified | CPT/HCPCS: 99214 ==

== ENCOUNTER → 2022-03-09 09:42 | Outpatient (BNVA) | payer MEDICARE, SELFPAY | PROVIDERS: PCP Family Medicine; Visit Provider Internal Medicine Critical Care Medicine | DX: J45.909 Unspecified asthma, uncomplicated (principal); I50.20 Unspecified systolic (congestive) heart failure; M19.90 Unspecified osteoarthritis, unspecified site; Z86.16 Personal history of COVID-19; Z86.19 Personal history of other infectious and parasitic diseases; Z85.038 Personal history of other malignant neoplasm of large intestine | CPT/HCPCS: 99214 ==

== ENCOUNTER → 2022-05-18 10:36 | Outpatient (BNVA) | payer MEDICARE, SELFPAY | PROVIDERS: PCP Family Medicine; Visit Provider Internal Medicine | DX: M19.90 Unspecified osteoarthritis, unspecified site (principal); N18.9 Chronic kidney disease, unspecified; I73.9 Peripheral vascular disease, unspecified; D64.9 Anemia, unspecified | CPT/HCPCS: 36415; 80053; 84100; 85025; 85651; 86140; 99214 ==

== ENCOUNTER → 2022-05-28 10:34 | Outpatient (BNVA) | payer MEDICARE, SELFPAY | PROVIDERS: PCP Family Medicine; Visit Provider Anesthesiology Pain Medicine | DX: M17.0 Bilateral primary osteoarthritis of knee (principal) | CPT/HCPCS: 99204 ==

== ENCOUNTER → 2022-06-29 09:00 | Outpatient (BNVA) | payer MEDICARE, SELFPAY | PROVIDERS: PCP Family Medicine; Visit Provider Anesthesiology Pain Medicine | DX: M17.12 Unilateral primary osteoarthritis, left knee (principal); M25.561 Pain in right knee; M79.604 Pain in right leg; M79.605 Pain in left leg; I73.9 Peripheral vascular disease, unspecified | CPT/HCPCS: 99214 ==

== ENCOUNTER → 2022-07-30 09:57 | Outpatient (BNVA) | payer MEDICARE, SELFPAY | PROVIDERS: PCP Family Medicine; Visit Provider Anesthesiology Pain Medicine | DX: M16.0 Bilateral primary osteoarthritis of hip (principal); M79.604 Pain in right leg; M79.605 Pain in left leg; I73.9 Peripheral vascular disease, unspecified | CPT/HCPCS: 99213 ==

== ENCOUNTER → 2022-08-31 09:41 | Outpatient (BNVA) | payer MEDICARE, SELFPAY | PROVIDERS: PCP Family Medicine; Visit Provider Anesthesiology Pain Medicine | DX: M16.0 Bilateral primary osteoarthritis of hip (principal) | CPT/HCPCS: 99213; 99214 ==

== ENCOUNTER → 2022-11-05 08:53 | Outpatient (BNVA) | payer MEDICARE, SELFPAY | PROVIDERS: PCP Family Medicine; Visit Provider Anesthesiology Pain Medicine | DX: M16.0 Bilateral primary osteoarthritis of hip (principal); M54.9 Dorsalgia, unspecified; I73.9 Peripheral vascular disease, unspecified; M19.90 Unspecified osteoarthritis, unspecified site; N18.9 Chronic kidney disease, unspecified; D64.9 Anemia, unspecified | CPT/HCPCS: 99214 ==

== ENCOUNTER → 2022-12-03 09:42 | Outpatient (BNVA) | payer MEDICARE, SELFPAY | PROVIDERS: PCP Family Medicine; Visit Provider Anesthesiology Pain Medicine | DX: M16.0 Bilateral primary osteoarthritis of hip (principal); M62.838 Other muscle spasm | CPT/HCPCS: 99214 ==

== ENCOUNTER → 2022-12-07 13:47 | Outpatient (BNVA) | payer MEDICARE, SELFPAY | PROVIDERS: PCP Family Medicine; Visit Provider Internal Medicine Pulmonary Disease | DX: J44.9 Chronic obstructive pulmonary disease, unspecified (principal); J45.909 Unspecified asthma, uncomplicated; I50.20 Unspecified systolic (congestive) heart failure; M19.90 Unspecified osteoarthritis, unspecified site; Z87.891 Personal history of nicotine dependence; Z86.16 Personal history of COVID-19; Z85.038 Personal history of other malignant neoplasm of large intestine | CPT/HCPCS: 99214 ==

== ENCOUNTER → 2022-12-31 09:18 | Outpatient (BNVA) | payer MEDICARE, SELFPAY | PROVIDERS: PCP Family Medicine; Visit Provider Anesthesiology Pain Medicine | DX: M17.0 Bilateral primary osteoarthritis of knee (principal); I73.9 Peripheral vascular disease, unspecified | CPT/HCPCS: 99214 ==

== ENCOUNTER → 2023-02-23 08:38 | Outpatient (BNVA) | payer MEDICARE, SELFPAY | PROVIDERS: PCP Family Medicine; Visit Provider Anesthesiology Pain Medicine | DX: M54.9 Dorsalgia, unspecified (principal); M17.0 Bilateral primary osteoarthritis of knee | CPT/HCPCS: 99214 ==

== ENCOUNTER → 2023-02-26 08:51 | Outpatient (BNVA) | payer MEDICARE, SELFPAY | PROVIDERS: PCP Family Medicine; Visit Provider Internal Medicine | DX: N18.9 Chronic kidney disease, unspecified (principal); R63.4 Abnormal weight loss; M19.90 Unspecified osteoarthritis, unspecified site; I73.9 Peripheral vascular disease, unspecified; D64.9 Anemia, unspecified | CPT/HCPCS: 99214 ==

== ENCOUNTER → 2023-03-25 09:23 | Outpatient (BNVA) | payer MEDICARE, SELFPAY | PROVIDERS: PCP Family Medicine; Visit Provider Anesthesiology Pain Medicine | DX: I73.9 Peripheral vascular disease, unspecified; M17.0 Bilateral primary osteoarthritis of knee | CPT/HCPCS: 99214 ==

== ENCOUNTER → 2023-04-22 09:21 | Outpatient (BNVA) | payer MEDICARE, SELFPAY | PROVIDERS: PCP Family Medicine; Visit Provider Anesthesiology Pain Medicine | DX: M54.9 Dorsalgia, unspecified (principal); I73.9 Peripheral vascular disease, unspecified; M17.0 Bilateral primary osteoarthritis of knee | CPT/HCPCS: 99213 ==

== ENCOUNTER → 2023-05-10 12:48 | Outpatient (BNVA) | payer MEDICARE, SELFPAY | PROVIDERS: PCP Family Medicine; Visit Provider Internal Medicine Pulmonary Disease | DX: J45.909 Unspecified asthma, uncomplicated (principal); I50.20 Unspecified systolic (congestive) heart failure; M19.90 Unspecified osteoarthritis, unspecified site; Z77.29 Contact with and (suspected) exposure to other hazardous substances; Z85.038 Personal history of other malignant neoplasm of large intestine; N18.9 Chronic kidney disease, unspecified; Z87.891 Personal history of nicotine dependence | CPT/HCPCS: 99214 ==

== ENCOUNTER 2023-05-13 09:53 | Emergency (ER) | payer MEDICARE, SELFPAY ==
[2023-05-13 09:54] VITALS: BP 139/69; PULSE 65; RESP 18; TEMP 36.4; O2SAT 99
--- NOTE | 2023-05-13 10:14 | ED_ITS ---
HPI - SOB/Dyspnea 2 General: Chief Complaint: Shortness of Breath/Dyspnea Stated Complaint: sob, possible low O2 Time Seen by Provider: 05/13/23 10:00 History of Present Illness: HPI Narrative: Patient presents to the ER today with chief complaints of worsening shortness of breath over the last 2 weeks. Patient said he seen his rn care manager and his vascular surgeon in [place] yesterday. Patient has an a EF of approximately 40 to 45% during his last echo but he has 1 scheduled in about 2 weeks. 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 Patient is currently on Xarelto and Pletal as medical therapy. Patient saw his wine cellar worker and he said his kidneys are working good. Patient's rn care manager did decrease him down on his Lasix from 40 mg daily to 20 mg daily. Review of Systems 2 General: Reports: 10 or more systems reviewed and unremarkable except in HPI and below PFSH ED 2 PFSH: Medical History Adenocarcinoma of sigmoid colon CHF (congestive heart failure) Peripheral vascular disease CKD (chronic kidney disease) Pneumonia due to COVID-19 virus Surgical History S/P peripheral artery angioplasty with stent placement 2015 History of colonoscopy History of coronary angioplasty with insertion of stent 2003 S/P laparoscopic-assisted sigmoidectomy (08/06/21) H/O shoulder replacement History of right hip replacement Family History Sister Cancer Hyperlipidemia Hypertension Rheumatoid arthritis Mother Hyperlipidemia Hypertension Rheumatoid arthritis Father Hyperlipidemia Hypertension Stroke Rheumatoid arthritis Brother Hyperlipidemia Hypertension Heart attack Rheumatoid arthritis Denies family history of Diabetes Lupus Social History Smoking and tobacco/nicotine status: former use of tobacco/nicotine Quit status (tobacco/nicotine): has quit using Year quit tobacco: 1987 - PPD x 30 Years Second hand smoke exposure: No Alcohol intake: current Alcohol intake frequency: few times a week Alcohol type: wine Substance/Drug Use: never Lives independently: Yes Household members: spouse Marital status: service: Yes Current occupational status: retired Do you think of yourself as: Straight/Heterosexual Current gender identity: Male Physical Exam 2 Const: COMMON NORMALS: no acute distress, average body habitus, patient oriented x3, no limitations, healthy appearing, alert and well nourished HENMT: COMMON NORMALS: normocephalic, atraumatic, hearing grossly normal bilaterally, external ears normal, Normal external nose present, moist oral mucous membranes and oropharynx normal HEAD & SCALP: normocephalic and atraumatic NOSE: Normal external nose present EXTERNAL EAR: Yes external ears normal Eye: COMMON NORMALS: Equal, round and reactive pupils present, EOMs intact bilaterally, conjunctivae normal and no scleral icterus CONJUNCTIVA: Yes conjunctivae normal PUPIL: Yes Equal, round and reactive pupils present Neck/C-Spine: COMMON NORMALS: full ROM, no lymphadenopathy, supple, no meningeal signs, no JVD and Thyroid normal THYROID: Thyroid normal Cardio: COMMON NORMALS: no JVD, S1 normal heart sound present, S2 normal heart sound present, No gallops present (Cardio), No clicks present (Cardio) and No murmurs present (Cardio); negative for regular rate and negative for regular rhythm (Irregularly irregular) RATE: abnormal rate RHYTHM: abnormal rhythm (Irregularly irregular) HEART SOUNDS: S1 normal heart sound present and S2 normal heart sound present GI: COMMON NORMALS: Normal to inspection, nondistended, normoactive bowel sounds present, Soft to palpation, non-tender, No hepatosplenomegaly present and no masses PALPATION: Yes Soft to palpation and Yes No hepatosplenomegaly present Neuro: COMMON NORMALS: patient oriented x3 SENSORIUM/ORIENTATION: Yes alert MENINGEAL SIGNS: Yes no meningeal signs Course 2 Vital Signs: Vital signs: Vital Signs Temperature 97.6 F 05/13/23 09:54 Pulse Rate 70 05/13/23 12:17 Respiratory Rate 18 05/13/23 12:17 Blood Pressure 138/95 05/13/23 12:17 Pulse Oximetry 95 05/13/23 12:17 Oxygen Delivery Me thod Room Air 05/13/23 12:17 MDM - SOB/Dyspnea Medical Decision Making RT performed a home oxygen test and patient does not qualify for home oxygen. Patient lab work done which showed he is anemic at 9.3 hemoglobin with hematocrit 32.3 platelets 146, BUN and creatinine were only slightly elevated but stable for the patient at 23 and 1.5. X-ray was read off as minimal patchy right upper lobe opacity which may represent acute pneumonia, BNP was elevated at 12,919. These results was discussed with the patient. We will increase the patient's Lasix back to 40 mg for the next [address] the patient on Augmentin as a precaution for right upper lobe opacity. Patient should keep his appointment already scheduled with Dr. Staples and follow-up with his family practice doctor in the next 7 to 10 days for further evaluation and treatment of his fluid level and kidneys as needed. Differential Diagnosis Likely congestive heart failure; Unlikely acute exacerbation of chronic obstructive airways disease, community acquired pneumonia, asthma with exacerbation or pulmonary embolism Medical Records I reviewed the patient's medical records. Lab Data I reviewed the patient's lab results. 05/13/23 10:31 05/13/23 10:31 Labs/Radiology: Laboratory Results WBC 3.58 10^3/uL (3.29-11.43) 05/13/23 10:31 RBC 3.71 10^6/uL (3.85-5.65) L 05/13/23 10:31 Hgb 9.30 g/dL (11.27-16.99) L 05/13/23 10:31 Hct 32.3 % (37-53) L 05/13/23 10:31 MCV 87.1 fl (82-101) 05/13/23 10:31 MCH 25.1 pg (27-33) L 05/13/23 10:31 MCHC 28.8 g/dL (30-55) L 05/13/23 10:31 RDW 18.2 % (12.1-15.1) H 05/13/23 10:31 Plt Count 146 10^3/cmm (157-399) L 05/13/23 10:31 MPV 9.4 fL (7.4-10.4) 05/13/23 10:31 Neut % (Auto) 65.6 % 05/13/23 10:31 Lymph % (Auto) 18.7 % 05/13/23 10:31 Lares % (Auto) 8.9 % 05/13/23 10:31 Eos % (Auto) 5.9 % 05/13/23 10:31 Baso % (Auto) 0.3 % 05/13/23 10:31 Neut # (Auto) 2.35 10^3/uL (1.8-7.7) 05/13/23 10:31 Lymph # (Auto) 0.7 10^3/uL (0.8-4.8) L 05/13/23 10:31 Lares # (Auto) 0.3 10^3/uL (0.2-0.9) 05/13/23 10:31 Eos # (Auto) 0.2 10^3/uL (0.0-0.8) 05/13/23 10:31 Baso # (Auto) 0.0 10^3/uL (0.0-0.1) 05/13/23 10:31 Nucleated RBC % (auto) 0 % 05/13/23 10:31 Nucleated RBCs # 0.0 /100WBC 05/13/23 10:31 PT 17.50 SECONDS (12.1-14.9) H 05/13/23 10:31 INR 1.39 (0.8-1.2) H 05/13/23 10:31 Sodium 138 mmol/L (136-145) 05/13/23 10:31 Potassium 3.9 mmol/L (3.5-5.1) 05/13/23 10:31 Chloride 105 mmol/L (98-107) 05/13/23 10:31 Carbon Dioxide 20 mmol/L (22-29) L 05/13/23 10:31 Anion Gap 16.9 (5-19) 05/13/23 10:31 BUN 23 mg/dL (8-23) 05/13/23 10:31 Creatinine 1.5 mg/dL (0.7-1.2) H 05/13/23 10:31 GFR Calculation Not Reportable 05/13/23 10:31 Glucose 127 mg/dL (65-115) H 05/13/23 10:31 Calculated Osmolality 291 mOsm/kg (285-295) 05/13/23 10:31 Calcium 8.7 mg/dL (8.5-10.5) 05/13/23 10:31 Magnesium 2.1 mg/dL (1.7-2.3) 05/13/23 10:31 Total Bilirubin 0.4 mg/dL (0.15-1.2) 05/13/23 10:31 AST 24 U/L (0-40) 05/13/23 10:31 ALT 11 U/L (0-41) 05/13/23 10:31 Alkaline Phosphatase 75 U/L (40-130) 05/13/23 10:31 Troponin T Baseline 70 ng/L (0-15) H 05/13/23 10:31 Troponin T 120 Minute 66.08 ng/L (0-15) H 05/13/23 12:52 Delta Troponin T -3.92 ABS# (0-10) L 05/13/23 12:52 NT-Pro-B Natriuret Pep 75489 pg/mL (0-450) H 05/13/23 10:31 Total Protein 6.0 g/dL (6.6-8.7) L 05/13/23 10:31 Albumin 3.8 g/dL (3.5-5.2) 05/13/23 10:31 Globulin 2.2 g/dL (1.3-4.6) 05/13/23 10:31 Urine Color Yellow (Yellow) 05/13/23 11:14 Urine Appearance Clear (CLEAR) 05/13/23 11:14 Urine pH 5 (5-7) 05/13/23 11:14 Ur Specific [place] 1.015 (1.005-1.030) 05/13/23 11:14 Urine Protein Neg (Negative) 05/13/23 11:14 Urine Glucose (UA) Norm (Normal) 05/13/23 11:14 Urine Ketones Negative (Negative) 05/13/23 11:14 Urine Blood Neg (Negative) 05/13/23 11:14 Urine Nitrate Negative (Negative) 05/13/23 11:14 Urine Bilirubin Neg (Negative) 05/13/23 11:14 Urine Urobilinogen Norm mg/dL (Negative) 05/13/23 11:14 Ur Leukocyte Esterase Negative (Negative) 05/13/23 11:14 All radiology interpretation(s) finalized by discharge EKG Data EKG 1: I personally reviewed and interpreted this EKG as follows: EKG Interpretation Date: 05/13/23 EKG interpretation time: 10:04 Prior EKG tracings: not available for review Interpretation: EKG showed ventricular rate 70 bpm, QRS duration 103, QTc of 443, atrial fibrillation, LVH, ST deviation moderate T wave abnormality consider anterolateral and/or inferior ischemia. Discharge Plan Discharge Patient Disposition: Home Clinical Impression: Congestive heart failure Qualifiers: Heart failure type: unspecified Heart failure chronicity: acute on chronic Q ualified Code(s): I50.9 - Heart failure, unspecified Edema Qualifiers: Edema type: localized Qualified Code(s): R60.0 - Localized edema Condition: Stable Prescriptions: New furosemide 40 mg tablet 40 mg PO DAILY Qty: 7 0RF amoxicillin-pot clavulanate 875-125 mg tablet 1 tab PO BID Qty: 14 0RF No Action calcium carb-D3-mag [id number] 130-397-699-5 ai-byow-pc-mg tablet 1 tab PO DAILY Rx Instructions: administer with a meal sulfasalazine [Azulfidine] 500 mg tablet 1 g PO BID Qty: 120 2RF Rx Instructions: give with food (meal/snack) hydrocodone-acetaminophen 5-325 mg tablet 1 tab PO BID PRN (Reason: pain) 30 Days Qty: 60 0RF gabapentin 300 mg capsule 300 mg PO DAILY Qty: 30 2RF budesonide-formoterol [Symbicort] 160-4.5 mcg/actuation HFA aerosol inhaler See Rx Instructions .ROUTE .COMPLEX Qty: 11 3RF Dose Instruction: INHALE 2 PUFFS BY MOUTH EVERY 12 HOURS FOR 30 DAYS Rx Instructions: INHALE 2 PUFFS BY MOUTH EVERY 12 HOURS FOR 30 DAYS albuterol sulfate 90 mcg/actuation HFA aerosol inhaler 2 puff inhalation QID PRN (Reason: shortness of breath or wheezing) 30 Days Qty: 18 5RF fluticasone propionate [Flonase Allergy Relief] 50 mcg/actuation spray,suspension 1 spray intranasal BID PRN (Reason: allergy symptoms) Qty: 16 5RF Rx Instructions: administer into each nostril fexofenadine 60 mg Tablet 60 mg PO BID ascorbic acid (vitamin C) [Vitamin C] 500 mg Tablet 250 mg PO BID lansoprazole [Prevacid 24Hr] 15 mg Capsule,Delayed Release(Dr/Ec) 15 mg PO DAILY cranberry 400 mg Capsule 400 mg PO DAILY Rx Instructions: administer with a meal elderberry fruit and flower 460-115 mg Capsule 1 cap PO BID furosemide 20 mg tablet 20 mg PO DAILY aspirin 81 mg Tablet,Delayed Release (Dr/Ec) 81 mg PO DAILY Hold Instructions: Resume on 08/18/21. cilostazol 100 mg tablet 100 mg PO BID isosorbide mononitrate 60 mg tablet extended release 24 hr 60 mg PO DAILY tamsulosin 0.4 mg capsule 0.4 mg PO DAILY nitroglycerin [Nitrostat] 0.4 mg Tablet, Sublingual 0.4 mg SUBLINGUAL Q5M PRN (Reason: Chest Pain) vitamin B complex Tablet 1 tab PO BID rosuvastatin 20 mg tablet 20 mg PO DAILY acetaminophen 500 mg Tablet 1,000 mg PO Q6H PRN (Reason: Pain, Moderate) nifedipine 30 mg tablet extended release 24 hr 30 mg PO DAILY garlic 100 mg Tablet 200 mg PO BID Co Q-10 10 mg Capsule 10 mg PO DAILY indomethacin 25 mg capsule 25 mg PO TID PRN (Reason: GOUT) metoprolol succinate 25 mg tablet extended release 24 hr 25 mg PO DAILY Vitamin D3 25 mcg (1,000 unit) Tablet,Chewable 50 mcg PO BID Xarelto 15 mg tablet 15 mg PO DAILY acetaminophen 650 mg Tablet Extended Release 650 mg PO Q12H Discharge Orders: Discharge ED (Routine); Ordered 05/13/23 Ordered By: Sebastian Platt Referrals: Kalani Guillaume MD [Primary Care Provider] - 1 week Patient Instructions: Heart Failure (ED), Edema (ED) Activity Restrictions/Additional Instructions: Please take the new increased dose of Lasix once daily for the next 7 days. I am also putting you on antibiotics to cover any type of infection that may be in your lungs. Please take them as directed. Please keep your appointment previously scheduled Dr. Staples and follow-up with your family practice doctor in the next 7 to 10 days for further evaluation of your kidneys and fluid level. Coding Level of Care Code ED Oil Lease Operator for Tiffanie Xie
--- NOTE | 2023-05-13 10:24 | XR_ITS ---
WS: [id number] Portable AP upright chest, 05/13/2023 Clinical Data: dyspnea Comparison: Two-view chest, 04/19/2023 Findings: There is a patchy opacity in the right upper lobe which may represent acute pneumonia. The heart is enlarged. There are no nodules or masses. No pneumothorax is seen. The aortic arch and desce nding thoracic aorta show calcification and tortuosity. There is a 2-lead cardiac pacemaker unchanged in position. There are 2 humeral head prostheses unchanged. Monitor leads are on the chest wall. Impression: 1. Minimal patchy right upper lobe opacity which may represent acute pneumonia. 2. Cardiomegaly and atherosclerosis.
--- NOTE | 2023-05-13 10:25 | ECG_ITS ---
[facility] Test Date: 2023-05-13 Pat Name: Juan M Sierra Department: Room: Gender: Male Clinical Project Assistant: : 1940 Requested By: Sebastian Platt Order Number: [id number] Jez MD: Brisa Morales M.D. Measurements Intervals [place] Rate: 70 P: 0 AK: 0 QRS: -15 QRSD: 103 T: 222 QT: 422 QTc: 458 Interpretive Statements Sinus rhythm with PACs and intermittent demand atrial and ventricular pacing. Compared to ECG 04/23/2020 17:17:35 Atrial and ventricular pacing is new Electronically Signed On 05-13-2023 16:35:00 HOME CARE MUSIC THERAPIST by Brisa Morales M.D. [email or web address]
[2023-05-13 10:40] LABS: Basophils % 0.3 %; Eosinophils # 0.2 10^3/uL (0.0-0.8); Eosinophils % 5.9 %; Hematocrit 32.3 % (37-53); Lymphocytes # 0.7 10^3/uL (0.8-4.8); Lymphocytes % 18.7 %; Mean Corpuscular HGB Conc 28.8 g/dL (30-55); Mean Corpuscular Hemoglobin 25.1 pg (27-33); Mean Corpuscular Volume 87.1 fl (82-101); Mean Platelet Volume 9.4 fL (7.4-10.4); Monocytes # 0.3 10^3/uL (0.2-0.9); Monocytes % 8.9 %; Neutrophils # 2.35 10^3/uL (1.8-7.7); Neutrophils % 65.6 %; Nucleated Red Blood Cells % 0 %; Platelet Count 146 10^3/cmm (157-399); Red Blood Count 3.71 10^6/uL (3.85-5.65); Red Cell Distribution Width 18.2 % (12.1-15.1); White Blood Count 3.58 10^3/uL (3.29-11.43)
[2023-05-13 10:44] VITALS: BP 134/77; PULSE 75; RESP 18; O2SAT 93
[2023-05-13 10:53] LABS: INR 1.39 (0.8-1.2)
--- NOTE | 2023-05-13 11:00 | PC.PHAR ---
PT HAS 2 TYLENOL'S. TYLENOL EXTENDED RELEASE TAKEN TWICE DAILY AND TYLENOL 500 MG EVERY 6 HOURS NEEDED. CONFIRMED WITH FAMILY WHO HAS THE LIST.
[2023-05-13 11:06] LABS: Troponin(5th) Baseline 70 ng/L (0-15)
[2023-05-13 11:14] LABS: Alanine Aminotransferase 11 U/L (0-41); Albumin Level 3.8 g/dL (3.5-5.2); Alkaline Phosphatase 75 U/L (40-130); Anion Gap 16.9 (5-19); Aspartate Amino Transferase 24 U/L (0-40); Blood Urea Nitrogen 23 mg/dL (8-23); Calcium 8.7 mg/dL (8.5-10.5); Carbon Dioxide 20 mmol/L (22-29); Chloride 105 mmol/L (98-107); Globulin 2.2 g/dL (1.3-4.6); Glucose 127 mg/dL (65-115); Magnesium 2.1 mg/dL (1.7-2.3); NT Pro B Type Natriuretic Pept 12919 pg/mL (0-450); Osmolality Calculated 291 mOsm/kg (285-295); Potassium 3.9 mmol/L (3.5-5.1); Sodium 138 mmol/L (136-145); Total Bilirubin 0.4 mg/dL (0.15-1.2)
[2023-05-13 11:37] VITALS: BP 120/78; PULSE 74; RESP 18; O2SAT 94
[2023-05-13 11:53] LABS: Add Urine Microscopic? NO; Charge for UA Resulting for Rev
[2023-05-13 11:56] VITALS: O2SAT 92; O2SAT 95
[2023-05-13 11:57] LABS: Bilirubin Urine Neg (Negative); Blood Urine Neg (Negative); Glucose Urine UA Norm (Normal); Ketones Urine Negative (Negative); Leukocyte Esterase Urine Negative (Negative); Nitrate Urine Negative (Negative); Protein Urine Neg (Negative); Specific Gravity, Urine 1.015 (1.005-1.030); Urine Appearance Clear (CLEAR); Urine Color Yellow (Yellow); Urobilinogen Urine Norm (Negative); pH Urine 5 (5-7)
[2023-05-13 12:17] VITALS: BP 138/95; PULSE 70; RESP 18; O2SAT 95
[2023-05-13] MEDS: FUROsemide 10 mg/mL SDV 4mL 40 MG IVP (12:27)
--- NOTE | 2023-05-13 12:37 | ECG_ITS ---
[facility] Test Date: 2023-05-13 Pat Name: Juan M Sierra Department: Room: Gender: Male Taker Out: : 1940 Requested By: Sebastian Platt Order Number: [id number] Jez MD: Brisa Morales M.D. Measurements Intervals [place] Rate: 74 P: 32 [place]: 189 QRS: -79 QRSD: 181 T: 95 QT: 479 QTc: 533 Interpretive Statements ELECTRONIC VENTRICULAR PACEMAKER ABNORMAL RHYTHM ECG Compared to ECG 04/23/2020 17:17:35 Sinus rhythm no longer present Electronically Signed On 05-13-2023 16:53:37 BOX MAKER by Brisa Morales M.D. [id number]
[2023-05-13 13:14] LABS: Troponin 5 2HR 66.08 ng/L (0-15)
[2023-05-13 13:15] LABS: Troponin 5 2HR Delta -3.92 ABS# (0-10)
== END 2023-05-13 14:10 | disposition home or self-care (01) ==
PROVIDERS: Emergency Provider Emergency Medicine; PCP Family Medicine
DX: I50.9 Heart failure, unspecified (principal); R60.0 Localized edema; Z79.82 Long term (current) use of aspirin; Z87.891 Personal history of nicotine dependence; N18.9 Chronic kidney disease, unspecified; Z95.5 Presence of coronary angioplasty implant and graft; Z85.038 Personal history of other malignant neoplasm of large intestine
CPT/HCPCS: 36415; 71045; 80053; 81003; 83735; 83880; 84484; 85025; 85610; 93005; 96374; 99285; J1940

== ENCOUNTER → 2023-05-20 10:13 | Outpatient (BNVA) | payer MEDICARE, SELFPAY | PROVIDERS: PCP Family Medicine; Visit Provider Anesthesiology Pain Medicine | DX: M54.9 Dorsalgia, unspecified (principal); I73.9 Peripheral vascular disease, unspecified; M17.0 Bilateral primary osteoarthritis of knee | CPT/HCPCS: 99214 ==

== ENCOUNTER 2023-05-27 06:35 | Outpatient (CLI) | payer MEDICARE, SELFPAY ==
[2023-05-27 07:34] VITALS: PULSE 74; RESP 18; O2SAT 95
[2023-05-27] MEDS: albuterol 2.5 mg/3 mL Neb INHALATION (07:34)
[2023-05-27 07:39] VITALS: PULSE 77
== END 2023-05-27 06:36 | disposition home or self-care (01) ==
LOC: RT 06:36
PROVIDERS: PCP Family Medicine; Visit Provider Internal Medicine Pulmonary Disease
DX: R06.02 Shortness of breath (principal); M19.90 Unspecified osteoarthritis, unspecified site; I73.9 Peripheral vascular disease, unspecified; N18.9 Chronic kidney disease, unspecified; D64.9 Anemia, unspecified; R63.4 Abnormal weight loss; R53.1 Weakness
CPT/HCPCS: 94060; 94610; 94618; 94729; 99214; J7613

== ENCOUNTER 2023-05-27 10:24 | Outpatient (CLI) | payer MEDICARE, SELFPAY ==
--- NOTE | 2023-05-27 | XR_ITS ---
WS: [id number] PA and lateral chest, 05/27/2023 Clinical Data: COUGH Comparison: Two-view chest, 05/18/2023 Findings: The patchy opacity in the right upper lobe is changed little. No nodules, masses or effusio ns are seen. The aortic arch and descending thoracic aorta show tortuosity. The cardiac pacemaker rem ains in the same position. There are bilateral shoulder arthroplasties. Impression: 1. Minimal change in patchy right upper lobe opacity. 2. Atherosclerosis and cardiac pacemaker.
== END 2023-05-27 10:25 | disposition home or self-care (01) ==
LOC: RADOUTREAD 05-28 10:25
PROVIDERS: PCP Family Medicine; Visit Provider Family Medicine
DX: Z53.9 Procedure and treatment not carried out, unspecified reason (principal)

== ENCOUNTER → 2023-06-17 12:38 | Outpatient (BNVA) | payer MEDICARE, SELFPAY | PROVIDERS: PCP Family Medicine; Visit Provider Anesthesiology Pain Medicine | DX: M54.9 Dorsalgia, unspecified (principal); M25.569 Pain in unspecified knee; M19.90 Unspecified osteoarthritis, unspecified site; I73.9 Peripheral vascular disease, unspecified; M17.0 Bilateral primary osteoarthritis of knee; I50.9 Heart failure, unspecified | CPT/HCPCS: 99214 ==

== ENCOUNTER → 2023-07-20 08:51 | Outpatient (BNVA) | payer MEDICARE, SELFPAY | PROVIDERS: PCP Family Medicine; Visit Provider Anesthesiology Pain Medicine | DX: I73.9 Peripheral vascular disease, unspecified; M54.9 Dorsalgia, unspecified; M16.0 Bilateral primary osteoarthritis of hip | CPT/HCPCS: 99214 ==

== ENCOUNTER 2023-08-17 10:28 | Oncology outpatient (recurring) (ONCR) | payer MEDICARE, SELFPAY ==
[2023-08-17 12:46] LABS: Reticulocyte % 1.6 % (0.5-2.0)
[2023-08-17 12:58] LABS: INR 1.15 (0.8-1.2)
[2023-08-17 12:59] LABS: Partial Thromboplastin Time 33.4 SECONDS (23.9-36.7)
[2023-08-17 13:17] LABS: Basophils % 0.4 %; Eosinophils # 0.3 10^3/uL (0.0-0.8); Eosinophils % 7.4 %; Hematocrit 35.5 % (37-53); Lymphocytes # 1.1 10^3/uL (0.8-4.8); Lymphocytes % 23.5 %; Mean Corpuscular HGB Conc 29.6 g/dL (30-55); Mean Corpuscular Hemoglobin 26.8 pg (27-33); Mean Corpuscular Volume 90.6 fl (82-101); Mean Platelet Volume 9.8 fL (7.4-10.4); Monocytes # 0.4 10^3/uL (0.2-0.9); Monocytes % 7.8 %; Neutrophils # 2.69 10^3/uL (1.8-7.7); Neutrophils % 60.5 %; Nucleated Red Blood Cells % 0 %; Platelet Count 144 10^3/cmm (157-399); Red Blood Count 3.92 10^6/uL (3.85-5.65); Red Cell Distribution Width 21.8 % (12.1-15.1); White Blood Count 4.46 10^3/uL (3.29-11.43)
[2023-08-17 13:18] LABS: LAB Peripheral Smear Sent for Review
[2023-08-17 13:26] LABS: HIV 1 & 2 Antibody Non-Reactive (Non-Reactiv); HIV 1 & 2 Antigen Non-Reactive (Non-Reactiv)
[2023-08-17 13:27] LABS: Carcinoembryonic Antigen 4.5 ng/mL (0.0-4.7); Free T4 Free Thyroxine 0.76 ng/dL (0.82-1.77); Thyroid Stimulating Hormone 4.33 uIU/mL (0.27-4.20)
[2023-08-17 13:31] LABS: Folate Level 16.6 ng/mL (4.5-32.2)
[2023-08-17 13:32] LABS: Hepatitis A Antibody IgM Non-Reactive (Nonreactive); Hepatitis B Core AB, Total Non-Reactive (Nonreactive); Hepatitis B Surface AB < 3.5 (11.5-1000); Hepatitis B Surface Antigen Non-Reactive (Nonreactive); Hepatitis C Virus Antibody Non-Reactive (Nonreactive)
[2023-08-17 13:40] LABS: Alanine Aminotransferase 15 U/L (0-41); Albumin Level 3.6 g/dL (3.5-5.2); Alkaline Phosphatase 115 U/L (40-130); Anion Gap 13.7 (5-19); Aspartate Amino Transferase 30 U/L (0-40); Blood Urea Nitrogen 31 mg/dL (8-23); Calcium 8.4 mg/dL (8.5-10.5); Carbon Dioxide 29 mmol/L (22-29); Chloride 101 mmol/L (98-107); Creatinine Clr Calc Pharmacy 29.8124; Globulin 2.5 g/dL (1.3-4.6); Glucose 102 mg/dL (65-115); Immunoglobulin IGA 127 mg/dL (70-400); Immunoglobulin IGG 732 mg/dL (700-1600); Immunoglobulin IGM 41 mg/dL (40-230); Osmolality Calculated 295 mOsm/kg (285-295); Potassium 4.7 mmol/L (3.5-5.1); Sodium 139 mmol/L (136-145); Total Bilirubin 0.2 mg/dL (0.15-1.2); Total Protein 6.1 g/dL (6.6-8.7)
[2023-08-17 13:54] LABS: Ferritin 60 ng/mL (30-400); Iron 39 ug/dL (59-158); Percent Saturation 13.2 % (20-50); Total Iron Binding Capacity 294 mcg/dl; Unsaturated Iron Binding 255 ug/dL (112-347)
[2023-08-17 14:11] LABS: Vitamin B12 663 pg/mL (232-1245)
[2023-08-18 09:00] LABS: PROTEIN, TOTAL 5.9 g/dL (6.1-8.1)
[2023-08-18 13:43] LABS: KAPPA/LAMBDA LIGHT CHAINS FREE 0.86 (0.26-1.65); LAMBDA LIGHT CHAIN, FREE, SERU 26.8 mg/L (5.7-26.3)
[2023-08-19 11:54] LABS: ALBUMIN 3.5 g/dL (3.8-4.8); ALPHA 1 GLOBULIN 0.4 g/dL (0.2-0.3); ALPHA 2 GLOBULIN 0.6 g/dL (0.5-0.9); BETA 1 GLOBULIN 0.4 g/dL (0.4-0.6); BETA 2 GLOBULIN 0.3 g/dL (0.2-0.5); GAMMA GLOBULIN 0.7 g/dL (0.8-1.7)
[2023-08-19 12:33] LABS: Erythropoietin 22.3 mIU/mL (2.6-18.5)
[2023-08-19 15:44] LABS: Leukemia Profile (BBPL) See Report
[2023-08-20 12:19] LABS: Soluble Transferrin Receptor 2.29 mg/L (0.76-1.76)
[2023-08-20 14:24] LABS: Methylmalonic Acid 412 nmol/L (87-318)
== END 2023-09-12 23:59 | disposition home or self-care (01) ==
PROVIDERS: Internal Medicine; PCP Family Medicine; Visit Provider Internal Medicine Medical Oncology
DX: C18.7 Malignant neoplasm of sigmoid colon (principal); D63.1 Anemia in chronic kidney disease; N18.9 Chronic kidney disease, unspecified; R19.7 Diarrhea, unspecified; Z87.891 Personal history of nicotine dependence; I25.10 Atherosclerotic heart disease of native coronary artery without angina pectoris; I50.20 Unspecified systolic (congestive) heart failure; I48.91 Unspecified atrial fibrillation; Z79.01 Long term (current) use of anticoagulants; Z90.49 Acquired absence of other specified parts of digestive tract
CPT/HCPCS: 36415; 80053; 80503; 82378; 82607; 82668; 82728; 82746; 82784; 83540; 83550; 83883; 83921; 84155; 84165; 84238; 84439; 84443; 85025; 85045; 85610; 85730; 86705; 86706; 86709; 86803; 87340; 87806; 88184; 88185; 99204

== ENCOUNTER → 2023-08-18 08:52 | Outpatient (BNVA) | payer MEDICARE, SELFPAY | PROVIDERS: PCP Family Medicine; Visit Provider Anesthesiology Pain Medicine | DX: M54.9 Dorsalgia, unspecified (principal); I73.9 Peripheral vascular disease, unspecified; M17.0 Bilateral primary osteoarthritis of knee | CPT/HCPCS: 99214 ==

== ENCOUNTER 2023-08-31 10:30 | Outpatient (CLI) | payer MEDICARE, SELFPAY ==
--- NOTE | 2023-08-31 11:00 | US_ITS ---
WS: [id number] Complete ABDOMINAL ULTRASOUND HISTORY: cancer of sigmoid colorn COMPARISON: None available. Liver: 17.4 cm in length. Normal size liver and echogenicity. No bile duct dilatation or mass. Portal Vein: Normal hepatopetal flow with monophasic waveform. Gallbladder: Normally distended gallbladder with no stones or wall thickening. CBD: 0.3 cm Pancreas: Completely obscured by bowel gas. Right kidney: 9.0 cm x 5.3 x 3.4 cm. Cortex:1.0 cm. Normal size kidney. Renal cysts are identified as previously described also. No solid mass. Left kidney: 10.7 cm x 6.3 cm x 3.8 cm. Cortex: 1.0 cm. Normal size kidney with renal cysts. No solid mass. Largest cyst measures 3.9 x 4.2 x 3.6 cm. Spleen: 11.4 cm. Normal size and echogenicity. Aorta and IVC: Abdominal aortic aneurysm. Fusiform dilatation with a maximum diameter 4.1 cm. Impression: 1. Fusiform abdominal aortic aneurysm 4.1 cm. Slight increase in size since 08/04/2021. Maximum diame ter at that time was 3.6 cm. 2. Bilateral renal cysts. No obstruction or solid mass. 3. Negative gallbladder. 4. Nonvisualization of the pancreas. 5. No ascites.
== END 2023-08-31 10:31 | disposition home or self-care (01) ==
LOC: RAD 10:31
PROVIDERS: PCP Family Medicine; Visit Provider Internal Medicine
DX: C18.7 Malignant neoplasm of sigmoid colon (principal); I71.40 Abdominal aortic aneurysm, without rupture, unspecified; N28.1 Cyst of kidney, acquired
CPT/HCPCS: 76700; 99214

== ENCOUNTER → 2023-09-08 09:28 | Outpatient (BNVA) | payer MEDICARE, SELFPAY | PROVIDERS: PCP Family Medicine; Visit Provider Internal Medicine Pulmonary Disease | DX: J45.909 Unspecified asthma, uncomplicated (principal); R91.8 Other nonspecific abnormal finding of lung field; I50.20 Unspecified systolic (congestive) heart failure; M19.90 Unspecified osteoarthritis, unspecified site; Z77.29 Contact with and (suspected) exposure to other hazardous substances; E03.9 Hypothyroidism, unspecified; Z85.038 Personal history of other malignant neoplasm of large intestine; Z87.891 Personal history of nicotine dependence | CPT/HCPCS: 99214 ==

== ENCOUNTER → 2023-09-27 10:19 | Outpatient (BNVA) | payer MEDICARE, SELFPAY | PROVIDERS: PCP Family Medicine; Visit Provider Anesthesiology Pain Medicine | DX: M54.9 Dorsalgia, unspecified; M17.0 Bilateral primary osteoarthritis of knee; I73.9 Peripheral vascular disease, unspecified | CPT/HCPCS: 99214 ==

== ENCOUNTER 2023-10-13 15:53 | Outpatient (CLI) | payer MEDICARE, SELFPAY ==
--- NOTE | 2023-10-13 16:15 | CTR_ITS ---
PROCEDURE INFORMATION: Exam: CT Chest Without Contrast; Diagnostic Exam date and time: 10/13/2023 4:03 PM Age: 83 years old Clinical indication: Other: Lung opacities; Prior surgery; Surgery date: 6+ months; Surgery type: Pacemaker/defibulator, bilat shoulders; Patient HX: HX of colon cancer; Additional info: Follow up lung opacities TECHNIQUE: Imaging protocol: Diagnostic computed tomography of the chest without contrast. Total images: 4 Radiation optimization: All CT scans at this facility use at least one of these dose optimization techniques: automated exposure control; mA and/or kV adjustment per patient size (includes targeted exams where dose is matched to clinical indication); or iterative reconstruction. COMPARISON: CT angio chest PE protcl [id number] 04/23/2020 4:11 PM RADIATION DOSE METRICS: Total DLP (mGy-cm): 440.99 FINDINGS: Tubes, catheters and devices: AICD projects in satisfactory location. Lungs: Mild dependent atelectasis. Mild irregular interstitial opacity seen in the upper lobes felt to represent scarring with mild associated traction bronchiectasis. Previously noted ground-glass opacities have significantly improved. Benign granulomatous disease of the lung is noted. Pleural spaces: Unremarkable. No pneumothorax. No pleural effusion. Heart: Cardiomegaly. Coronary arteries: Severe coronary arterial calcification, indicating the presence of coronary artery disease. Lymph nodes: Calcified mediastinal and hilar nodes noted. Vasculature: Dilated ascending thoracic aorta measured at 4.1 cm unchanged. Pulmonary vascular congestion. Spleen: Incidental splenic granulomata are noted. Kidneys and ureters: Partially visualized renal cysts. Bones/joints: Bilateral shoulder arthroplasties. Soft tissues: Unremarkable. Other findings: Severe atherosclerotic disease burden is evident. CT/CT chest con [id number] IMPRESSION: 1. Dilated ascending thoracic aorta measured at 4.1 cm unchanged. 2. Cardiomegaly with pulmonary vascular congestion. 3. Mild dependent atelectasis. 4. Mild irregular interstitial opacity seen in the upper lobes felt to represent scarring with mild associated traction bronchiectasis. Previously noted ground-glass opacities have significantly improved. 5. Severe coronary arterial calcification, indicating the presence of coronary artery disease. If the patient has associated symptoms recommend management as per chest pain guidelines. If the patient is asymptomatic consider reviewing modifiable cardiovascular risk factors and managing as per guidelines for primary prevention. COMMENTS: Consistent with the [employer]'s Incidental Findings Committee white paper (J Am Rafita Radiol 2018): Any incidental renal lesion less than 1 cm or classified as too small to characterize, or any incidental cystic renal lesion characterized as simple-appearing, is likely benign. No follow-up imaging is recommended for these lesions per consensus recommendations based on imaging criteria.
== END 2023-10-13 15:54 | disposition home or self-care (01) ==
LOC: RAD 15:54
PROVIDERS: PCP Family Medicine; Visit Provider Internal Medicine Pulmonary Disease
DX: R91.8 Other nonspecific abnormal finding of lung field (principal); I77.810 Thoracic aortic ectasia; I51.7 Cardiomegaly; J98.11 Atelectasis; I25.10 Atherosclerotic heart disease of native coronary artery without angina pectoris; Z85.038 Personal history of other malignant neoplasm of large intestine
CPT/HCPCS: 71250

== ENCOUNTER → 2023-10-20 08:49 | Outpatient (BNVA) | payer MEDICARE, SELFPAY | PROVIDERS: PCP Family Medicine; Visit Provider Internal Medicine Pulmonary Disease | DX: J44.89 Other specified chronic obstructive pulmonary disease (principal); Z77.29 Contact with and (suspected) exposure to other hazardous substances; Z87.891 Personal history of nicotine dependence; I50.20 Unspecified systolic (congestive) heart failure; M19.90 Unspecified osteoarthritis, unspecified site; Z85.038 Personal history of other malignant neoplasm of large intestine | CPT/HCPCS: 99214 ==

== ENCOUNTER → 2023-10-27 10:04 | Outpatient (BNVA) | payer MEDICARE, SELFPAY | PROVIDERS: PCP Family Medicine; Visit Provider Anesthesiology Pain Medicine | DX: G89.29 Other chronic pain; M54.9 Dorsalgia, unspecified; I73.9 Peripheral vascular disease, unspecified; M17.0 Bilateral primary osteoarthritis of knee | CPT/HCPCS: 99214 ==

== ENCOUNTER 2023-11-18 13:36 | Oncology outpatient (recurring) (ONCR) | payer MEDICARE, SELFPAY ==
[2023-11-18 14:47] LABS: Basophils % 0.5 %; Eosinophils # 0.1 10^3/uL (0.0-0.8); Eosinophils % 3.3 %; Hematocrit 34.1 % (37-53); Lymphocytes # 0.8 10^3/uL (0.8-4.8); Lymphocytes % 17.8 %; Mean Corpuscular HGB Conc 30.2 g/dL (30-55); Mean Corpuscular Hemoglobin 28.9 pg (27-33); Mean Corpuscular Volume 95.5 fl (82-101); Mean Platelet Volume 10.6 fL (7.4-10.4); Monocytes # 0.3 10^3/uL (0.2-0.9); Monocytes % 6.7 %; Neutrophils # 2.99 10^3/uL (1.8-7.7); Nucleated Red Blood Cells % 0 %; Platelet Count 145 10^3/cmm (157-399); Red Blood Count 3.57 10^6/uL (3.85-5.65); White Blood Count 4.21 10^3/uL (3.29-11.43)
[2023-11-18 15:22] LABS: Alanine Aminotransferase 6 U/L (0-41); Albumin Level 3.9 g/dL (3.5-5.2); Alkaline Phosphatase 95 U/L (40-130); Anion Gap 15.2 (5-19); Aspartate Amino Transferase 20 U/L (0-40); Blood Urea Nitrogen 24 mg/dL (8-23); Calcium 9.1 mg/dL (8.5-10.5); Carbon Dioxide 25 mmol/L (22-29); Chloride 103 mmol/L (98-107); Free T4 Free Thyroxine 1.04 ng/dL (0.82-1.77); Globulin 2.4 g/dL (1.3-4.6); Glucose 144 mg/dL (65-115); Osmolality Calculated 295 mOsm/kg (285-295); Potassium 4.2 mmol/L (3.5-5.1); Sodium 139 mmol/L (136-145); Thyroid Stimulating Hormone 3.13 uIU/mL (0.27-4.20); Total Bilirubin 0.3 mg/dL (0.15-1.2); Total Protein 6.3 g/dL (6.6-8.7)
[2023-11-18 15:56] LABS: Ferritin 76 ng/mL (30-400); Iron 56 ug/dL (59-158); Percent Saturation 23.1 % (20-50); Total Iron Binding Capacity 242 mcg/dl; Unsaturated Iron Binding 186 ug/dL (112-347)
[2023-11-18 16:12] LABS: Vitamin B12 687 pg/mL (232-1245)
[2023-11-23 10:09] LABS: Methylmalonic Acid 198 nmol/L (87-318)
== END 2023-12-12 23:59 | disposition home or self-care (01) ==
PROVIDERS: Internal Medicine; PCP Family Medicine; Visit Provider Internal Medicine Medical Oncology
DX: C18.7 Malignant neoplasm of sigmoid colon (principal); D63.1 Anemia in chronic kidney disease; N18.9 Chronic kidney disease, unspecified; R19.7 Diarrhea, unspecified; Z87.891 Personal history of nicotine dependence; Z79.01 Long term (current) use of anticoagulants; Z90.49 Acquired absence of other specified parts of digestive tract; D64.9 Anemia, unspecified
CPT/HCPCS: 36415; 80053; 82378; 82607; 82728; 83540; 83550; 83921; 84439; 84443; 85025; 99213

== ENCOUNTER → 2023-11-24 10:21 | Outpatient (BNVA) | payer MEDICARE, SELFPAY | PROVIDERS: PCP Family Medicine; Visit Provider Anesthesiology Pain Medicine | DX: G62.9 Polyneuropathy, unspecified (principal); M17.0 Bilateral primary osteoarthritis of knee | CPT/HCPCS: 99214 ==

== ENCOUNTER → 2024-01-20 09:56 | Outpatient (BNVA) | payer MEDICARE, SELFPAY | PROVIDERS: PCP Family Medicine; Visit Provider Internal Medicine Rheumatology | DX: I73.9 Peripheral vascular disease, unspecified (principal); M06.041 Rheumatoid arthritis without rheumatoid factor, right hand; M06.042 Rheumatoid arthritis without rheumatoid factor, left hand; N18.9 Chronic kidney disease, unspecified; Z79.899 Other long term (current) drug therapy; Z71.85 Encounter for immunization safety counseling; Z11.1 Encounter for screening for respiratory tuberculosis; Z11.59 Encounter for screening for other viral diseases; Z72.0 Tobacco use | CPT/HCPCS: 36415; 80076; 82565; 85025; 85651; 86140; 99215 ==

== ENCOUNTER 2024-03-13 13:47 | Oncology outpatient (recurring) (ONCR) | payer MEDICARE, SELFPAY ==
[2024-03-13 15:04] LABS: Carcinoembryonic Antigen 3.6 ng/mL (0.0-4.7)
[2024-03-13 15:15] LABS: Alanine Aminotransferase 10 U/L (0-41); Albumin Level 4.3 g/dL (3.5-5.2); Alkaline Phosphatase 83 U/L (40-130); Anion Gap 14.3 (5-19); Aspartate Amino Transferase 20 U/L (0-40); Blood Urea Nitrogen 29 mg/dL (8-23); Calcium 8.8 mg/dL (8.5-10.5); Carbon Dioxide 25 mmol/L (22-29); Chloride 104 mmol/L (98-107); Globulin 2.3 g/dL (1.3-4.6); Glucose 132 mg/dL (65-115); Osmolality Calculated 296 mOsm/kg (285-295); Potassium 4.3 mmol/L (3.5-5.1); Sodium 139 mmol/L (136-145); Total Bilirubin 0.3 mg/dL (0.15-1.2); Total Protein 6.6 g/dL (6.6-8.7)
[2024-03-13 15:33] LABS: Ferritin 69 ng/mL (30-400); Iron 83 ug/dL (59-158); Percent Saturation 29.2 % (20-50); Total Iron Binding Capacity 284 mcg/dl; Unsaturated Iron Binding 201 ug/dL (112-347)
[2024-03-13 15:40] LABS: Basophils % 0.4 %; Eosinophils # 0.1 10^3/uL (0.0-0.8); Eosinophils % 2.3 %; Hematocrit 37.1 % (37-53); Lymphocytes # 0.6 10^3/uL (0.8-4.8); Lymphocytes % 13.3 %; Mean Corpuscular HGB Conc 30.2 g/dL (30-55); Mean Corpuscular Hemoglobin 28.4 pg (27-33); Mean Corpuscular Volume 94.2 fl (82-101); Monocytes # 0.3 10^3/uL (0.2-0.9); Monocytes % 6.4 %; Nucleated Red Blood Cells % 0 %; Platelet Count 158 10^3/cmm (157-399); Red Blood Count 3.94 10^6/uL (3.85-5.65); Red Cell Distribution Width 18.8 % (12.1-15.1); White Blood Count 4.81 10^3/uL (3.29-11.43)
== END 2024-03-13 23:59 | disposition home or self-care (01) ==
PROVIDERS: Internal Medicine; PCP Family Medicine; Visit Provider Internal Medicine Hematology & Oncology
DX: D63.1 Anemia in chronic kidney disease; Z08 Encounter for follow-up examination after completed treatment for malignant neoplasm; Z85.038 Personal history of other malignant neoplasm of large intestine; N18.9 Chronic kidney disease, unspecified; Z90.49 Acquired absence of other specified parts of digestive tract; Z87.891 Personal history of nicotine dependence
CPT/HCPCS: 36415; 80053; 82378; 82728; 83540; 83550; 83921; 85025; 99214

== ENCOUNTER 2024-07-10 10:32 | Oncology outpatient (recurring) (ONCR) | payer MEDICARE, SELFPAY ==
[2024-07-10 11:10] LABS: Basophils % 0.2 %; Eosinophils # 0.2 10^3/uL (0.0-0.8); Eosinophils % 4.6 %; Hematocrit 33.3 % (37-53); Lymphocytes # 0.7 10^3/uL (0.8-4.8); Lymphocytes % 14.8 %; Mean Corpuscular Hemoglobin 28.9 pg (27-33); Mean Corpuscular Volume 96.2 fl (82-101); Mean Platelet Volume 9.3 fL (7.4-10.4); Monocytes # 0.3 10^3/uL (0.2-0.9); Monocytes % 6.7 %; Neutrophils # 3.51 10^3/uL (1.8-7.7); Neutrophils % 73.1 %; Nucleated Red Blood Cells % 0 %; Platelet Count 116 10^3/cmm (157-399); Red Blood Count 3.46 10^6/uL (3.85-5.65); Red Cell Distribution Width 17.8 % (12.1-15.1)
[2024-07-10 11:26] LABS: Alanine Aminotransferase 9 U/L (0-41); Albumin Level 4.1 g/dL (3.5-5.2); Alkaline Phosphatase 85 U/L (40-130); Aspartate Amino Transferase 22 U/L (0-40); Blood Urea Nitrogen 26 mg/dL (8-23); Calcium 8.8 mg/dL (8.5-10.5); Carbon Dioxide 24 mmol/L (22-29); Chloride 102 mmol/L (98-107); Globulin 1.9 g/dL (1.3-4.6); Glucose 123 mg/dL (65-115); Osmolality Calculated 292 mOsm/kg (285-295); Sodium 138 mmol/L (136-145); Total Bilirubin 0.2 mg/dL (0.15-1.2)
[2024-07-11 09:23] LABS: Carcinoembryonic Antigen 3.3 ng/mL (0.0-4.7)
== END 2024-07-14 23:59 | disposition home or self-care (01) ==
PROVIDERS: Internal Medicine Medical Oncology; Nurse Practitioner Family; PCP Family Medicine; Visit Provider Internal Medicine Hematology & Oncology
DX: Z08 Encounter for follow-up examination after completed treatment for malignant neoplasm (principal); Z85.038 Personal history of other malignant neoplasm of large intestine; Z87.891 Personal history of nicotine dependence; Z90.49 Acquired absence of other specified parts of digestive tract
CPT/HCPCS: 36415; 80053; 82378; 85025; 99214

== ENCOUNTER → 2024-11-14 13:34 | Outpatient (BNVA) | payer MEDICARE, SELFPAY | PROVIDERS: PCP Family Medicine; Visit Provider Internal Medicine Rheumatology | DX: I73.9 Peripheral vascular disease, unspecified (principal); M06.041 Rheumatoid arthritis without rheumatoid factor, right hand; M06.042 Rheumatoid arthritis without rheumatoid factor, left hand; Z79.899 Other long term (current) drug therapy; Z71.85 Encounter for immunization safety counseling | CPT/HCPCS: 99214 ==

== ENCOUNTER 2025-02-07 12:55 | Oncology outpatient (recurring) (ONCR) | payer MEDICARE, SELFPAY ==
[2025-02-07 13:32] LABS: Hematocrit 35.4 % (37-53); Hemoglobin 10.70 g/dL (11.27-16.99); Mean Corpuscular HGB Conc 30.2 g/dL (30-55); Mean Corpuscular Hemoglobin 29.3 pg (27-33); Mean Corpuscular Volume 97.0 fl (82-101); Nucleated Red Blood Cells % 0 %; Platelet Count 146 10^3/cmm (157-399); Red Blood Count 3.65 10^6/uL (3.85-5.65); White Blood Count 5.36 10^3/uL (3.29-11.43)
[2025-02-07 13:49] LABS: Alanine Aminotransferase 15 U/L (0-41); Albumin Level 4.2 g/dL (3.5-5.2); Alkaline Phosphatase 75 U/L (40-130); Aspartate Amino Transferase 29 U/L (0-40); Ferritin 126 ng/mL (30-400); Globulin 2.1 g/dL (1.3-4.6); Iron 80 ug/dL (59-158); Total Iron Binding Capacity 259 mcg/dl; Total Protein 6.3 g/dL (6.6-8.7); Unsaturated Iron Binding 179 ug/dL (112-347)
[2025-02-07 13:59] LABS: Carcinoembryonic Antigen 5.9 ng/mL (0.0-4.7)
[2025-02-07 14:10] LABS: Alanine Aminotransferase 14 U/L (0-41); Albumin Level 4.1 g/dL (3.5-5.2); Alkaline Phosphatase 77 U/L (40-130); Anion Gap 14.4 (5-19); Aspartate Amino Transferase 30 U/L (0-40); Blood Urea Nitrogen 22 mg/dL (8-23); Calcium 9.4 mg/dL (8.5-10.5); Carbon Dioxide 25 mmol/L (22-29); Chloride 103 mmol/L (98-107); Creatinine Clr Calc Pharmacy 42.0516; Globulin 2.3 g/dL (1.3-4.6); Glucose 103 mg/dL (65-115); Osmolality Calculated 290 mOsm/kg (285-295); Potassium 4.4 mmol/L (3.5-5.1); Sodium 138 mmol/L (136-145); Total Protein 6.4 g/dL (6.6-8.7)
[2025-02-07 14:25] LABS: Hepatitis B Surface Antigen Non-Reactive (Nonreactive)
== END 2025-02-11 23:59 | disposition home or self-care (01) ==
PROVIDERS: Internal Medicine Rheumatology; PCP Family Medicine; Visit Provider Nurse Practitioner Family
DX: Z08 Encounter for follow-up examination after completed treatment for malignant neoplasm (principal); Z85.038 Personal history of other malignant neoplasm of large intestine; Z79.899 Other long term (current) drug therapy; Z87.891 Personal history of nicotine dependence
CPT/HCPCS: 36415; 80053; 80076; 82378; 82728; 82746; 83540; 83550; 85025; 85651; 86140; 86480; 86704; 86803; 87340; 99214

== ENCOUNTER 2025-03-10 16:28 | Emergency (ER) | payer MEDICARE, SELFPAY ==
--- NOTE | 2025-03-10 16:31 | CTR_ITS ---
PROCEDURE INFORMATION: Exam: CT Head Without Contrast Exam date and time: 03/10/2025 5:16 PM Age: 84 years old Clinical indication: Injury or trauma; Fall; Blunt trauma (contusions or hematomas); Additional info: Fall, head injury TECHNIQUE: Imaging protocol: Computed tomography of the head without contrast. Radiation optimization: All CT scans at this facility use at least one of these dose optimization techniques: automated exposure control; mA and/or kV adjustment per patient size (includes targeted exams where dose is matched to clinical indication); or iterative reconstruction. COMPARISON: CT cervical spin wo con* [id number] 03/10/2025 5:16 PM RADIATION DOSE METRICS: Total DLP (mGy-cm): 1171.2 FINDINGS: Brain: Small acute left subdural hematoma overlying the left frontal and parietal lobes, measuring up to 7 mm in thickness. Minimal effacement of subjacent cortical sulci. Trace kqwc-iy-kyqfm midline shift of about 1 mm. Moderate generalized cortical volume loss. Periventricular and subcortical white matter hypodensities likely represent chronic small vessel ischemic changes. Cerebral ventricles: No ventriculomegaly. Paranasal sinuses: Mucosal thickening in the maxillary sinuses and right sphenoid sinuses as well as bilateral ethmoid air cells. Mastoid air cells: Visualized mastoid air cells are well aerated. Bones: Unremarkable. No acute fracture. Soft tissues: Unremarkable. Vasculature: Vascular calcifications along the carotid siphons CT/CT head wo con* [id number] IMPRESSION: 1. Small acute left subdural hematoma overlying the cerebral convexity. Possible trace rightward midline shift of about 1 mm. 2. Paranasal sinus disease. THIS REPORT CONTAINS FINDINGS THAT MAY BE CRITICAL TO PATIENT CARE. The findings were verbally communicated via telephone conference with DEMOND THEODORE at 5:52 PM CDT on 03/10/2025. The findings were acknowledged and understood.
--- NOTE | 2025-03-10 16:31 | CTR_ITS ---
PROCEDURE INFORMATION: Exam: CT Cervical Spine Without Contrast Exam date and time: 03/10/2025 5:16 PM Age: 84 years old Clinical indication: Injury or trauma; Fall; Blunt trauma; Additional info: Fall, neck pain TECHNIQUE: Imaging protocol: Computed tomography of the cervical spine without contrast. Radiation optimization: All CT scans at this facility use at least one of these dose optimization techniques: automated exposure control; mA and/or kV adjustment per patient size (includes targeted exams where dose is matched to clinical indication); or iterative reconstruction. COMPARISON: CT chest wo con [id number] 10/13/2023 4:03 PM RADIATION DOSE METRICS: Total DLP (mGy-cm): 252.3 FINDINGS: Bones: No definite acute fracture. Grade 1 degenerative anterolisthesis of C3 on C4 and retrolisthesis of C4 on C5. Trace grade 1 anterolisthesis at C6-C7, C7-T1, and T1-T2. Advanced multilevel cervical spondylosis most pronounced at C4-C5, C5-C6, and C6-C7. At least moderate central canal stenosis at these levels due to disc bulge and posterior endplate osteophytes. Multilevel bilateral facet arthropathy. Lungs: Lung apices are normal. Vasculature: Bilateral carotid calcifications. Vascular patency not assessed without intravenous contrast. Soft tissues: Unremarkable. CT/CT cervical spin wo con* [id number] IMPRESSION: 1. No acute osseous findings in the cervical spine. 2. Advanced multilevel cervical spondylosis.
--- OUTSIDE RECORDS SUMMARY | 2025-03-10 16:35 | XMS_ITS | Encounter Summary ---
Author Organization [facility] Address [address] [place] [address] Care Team Providers Care Dial Printer Name Role Phone Kalani Guillaume MD Primary Care Provider [phone] Reason for Referral * Outpatient Services (Routine) - Closed Specialty Diagnoses / Procedures Referred By Contac t Referred To Contact Diagnoses Peripheral vascular disease, unspecified Procedures US ANKLE PRESSURE INDEX Charity Ocampo MD NO ADDRESS ON FILE Referral ID Status Reason Start Date Expiration Date Visits Re quested Visits Authorized [id number] Closed 10/06/2012 11/06/2013 1 1 Encounter Details Date Type Department Care Team (Late st Contact Info) Description 10/06/2012 Ancillary Orders [facility] [place] [address] [place] [address] Charity Ocampo MD NO ADDRESS ON FILE Peripheral vascular disease, unspecified (Primary Dx) Social History Tobacco Use Types Packs/Day Years Used Date Smoking Tobacco: Former Cigarettes Smokeless Tobacco: Never Alcohol Use Standard Drinks/Week Comments Yes 0 (1 standard drink = 0.6 oz pur e alcohol) Sex and Gender Information Value Date Recorded Sex Assigned at Not on file 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 Gender Identity Not on file Sexual Orientation Not on file Occupation Industry Job Start Date Job End Date Not on file Not on file Not on file Not on file documented as of this encounter Plan of Treatment Not on file documented as of this encounter Results * US ANKLE PRESSURE INDEX (10/06/2012 11:09 AM CDT) Anatomical Region Laterality Modality Lower Extremity Ultrasound 10/06/2012 11:0 0 AM CDT Narrative 10/07/2012 1:13 PM CDT Noninvasive Vascular Lab MAYO with PVR Arterial Physiologic Evaluation Patient: Juan M Sierra Study ID: Gender: M : 1940 Age: 72 Room: Height: Weight: BSA: Pt status: Outpatient Study Date: 10/06/2012 Study Time: 11:00 AM BSA: Ordering: Charity Ocampo MD, MBA, FACS Interpreting:Charity Ocampo MD, MBA, FACS Physicist [place]: Cody Mancilla RVT Indications: 443.9 Peripheral vascular disease unspecified. History: Risk factors: Previous surgery: right femoral endarterctomy. Summary Impression: 1. No evidence of significant arterial insufficiency involving the right lower extremity No change compared to the prior study. 2. Study demonstrates moderate arterial insufficiency involving the left lower extremity Disease progression compared to the prior study. 3. Continued follow up is suggested. Study data: MAYO with PVR. Ankle-brachial index, pulse volume recording, and stress study. Location: Vascular laboratory. Patient status: Outpatient. [facility] Study status: Routine. Procedure: A vascular evaluation was performed. Exam quality was good. Findings: Treadmill stress arterial Doppler test was performed. The patient ambulated on the treadmill at an incline of 6degreesat 2mph. Post exercise measurements were recorded. The patient exercised for 5min. Reason for stopping: completed protocol. Physical exam: In the right lower extremity waveforms are triphasic. Volume Pulse Recordings are grossly normal at ankle level. PPGs are grossly normal. Resting and post stress Ankle Brachial Indices are in the normal range. In the left lower extremity waveforms are triphasic in the femoral and popliteal arteries and monophasic in the posterior tibial and dorsalis pedis arteries. Volume Pulse Recordings are mildly diminished at ankle level. PPGs are mildly diminished. Resting Ankle Brachial Index is in the mild disease range. Post stress the MAYO drops into the moderate disease range. Ankle brachial indices - Baseline Rt PT: 128mm Hg Rt DP: 113mm Hg Rt brachial: 94mm Hg Rt PT: 1.16 Rt DP: 1.03 Lt PT: 98mm Hg Lt DP: 83mm Hg Lt Brachial: 110mm Hg Lt PT: 0.89 Lt DP: 0.75 - 1 min post-exercise Rt PT: 164mm Hg Rt PT: 1.2 Lt PT: 107mm Hg Lt Brachial: 137mm Hg Lt PT: 0.78 Prepared and Electronically Authenticated Charity Ocampo MD, MBA, FACS Confirmed 10/07/2012 13:12 Procedure Note Charity Kuo MD - 10/07/2012 Noninvasive Vascular Lab MAYO with PVR Arterial Physiologic Evaluation Patient: Juan M Sierra Study ID: Gender: Vargas : 1940 Age: 72 Room: Height: Weight: BSA: Pt status: Outpatient Study Date: 10/06/2012 Study Time: 11:00 AM BSA: Ordering: Charity Ocampo MD, MBA, FACS Interpreting:Charity Ocampo MD, MBA, FACS Physicist [place]: Cody Mancilla RVT Indications: 443.9 Peripheral vascular disease unspecified. History: Risk factors: Previous surgery: right femoral endarterctomy. Summary Impression: 1. No evidence of significant arterial insufficiency involving the right lower extremity No change compared to the prior study. 2. Study demonstrates moderate arterial insufficiency involving the left lower extremity Disease progression compared to the prior study. 3. Continued follow up is suggested. Study data: MAYO with PVR. Ankle-brachial index, pulse volume recording, and stress study. Location: Vascular laboratory. Patient status: Outpatient. [facility] Study status: Routine. Procedure: A vascular evaluation was performed. Exam quality was good. Findings: Treadmill stress arterial Doppler test was performed. The patient ambulated on the treadmill at an incline of 6degreesat 2mph. Post exercise measurements were recorded. The patient exercised for 5min. Reason for stopping: completed protocol. Physical exam: In the right lower extremity waveforms are triphasic. Volume Pulse Recordings are grossly normal at ankle level. PPGs are grossly normal. Resting and post stress Ankle Brachial Indices are in the normal range. In the left lower extremity waveforms are triphasic in the femoral and popliteal arteries and monophasic in the posterior tibial and dorsalis pedis arteries. Volume Pulse Recordings are mildly diminished at ankle level. PPGs are mildly diminished. Resting Ankle Brachial Index is in the mild disease range. Post stress the MAYO drops into the moderate disease range. Ankle brachial indices - Baseline Rt PT: 128mm Hg Rt DP: 113mm Hg Rt brachial: 94mm Hg Rt PT: 1.16 Rt DP: 1.03 Lt PT: 98mm Hg Lt DP: 83mm Hg Lt Brachial: 110mm Hg Lt PT: 0.89 Lt DP: 0.75 - 1 min post-exercise Rt PT: 164mm Hg Rt PT: 1.2 Lt PT: 107mm Hg Lt Brachial: 137mm Hg Lt PT: 0.78 Prepared and Electronically Authenticated Charity Ocampo MD, MBA FACS Confirmed 10/07/2012 13:12 Charity Ocampo MD ORDERABLES Final Result documented in this encounter Visit Diagnoses Diagnosis Peripheral vascular disease, unspecified- Primary documented in this encounter Care Teams Dial Printer Relationship Specialty Start Date End Date Kalani Guillaume MD [address] [place] [address] PCP - General Family Practice 12/31/16 documented as of this encounter
--- OUTSIDE RECORDS SUMMARY | 2025-03-10 16:35 | XMS_ITS | Encounter Summary ---
Author Organization [facility] Address [address] [place] [address] Care Team Providers Care Cleaner Laboratory Equipment Name Role Phone Kalani Guillaume MD Primary Care Provider Encounter Details Date Type Department Care Team (Latest Contact Info) Description 09/20/2003 Outpatient Historical [facility] 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
--- OUTSIDE RECORDS SUMMARY | 2025-03-10 16:35 | XMS_ITS | Encounter Summary ---
Author Organization [facility], [facility] Address [address] [facility] [address] [place] [address] Phone Care Team Providers Care Client Relations Representative Name Role Phone Kalani Guillaume MD Primary Care Provider [phone] Encounter Details Date Type Department Care Team (Late st Contact Info) Description 05/15/2020 Orders Only [facility] [employer] [facility] [address] [place] [address] Renal insufficiency Social History Tobacco Use Types Packs/Day Years Used Date Smoking Tobacco: Never Assessed Sex and Gender Information Value Date Recorded Sex Assigned at Not on file Legal Sex Male 12:07 PM EST Gender Identity Not on file Sexual Orientation Not on file documented as of this encounter Plan of Treatment Not on file documented as of this encounter Visit Diagnoses Diagnosis Renal insufficiency documented in this encounter Care Teams Client Relations Representative Relationship Specialty Start Date End Date Kalani Guillaume MD [address] [place], [place] [address] PCP - General Family Medicine 05/15/20 documented as of this encounter
--- OUTSIDE RECORDS SUMMARY | 2025-03-10 16:35 | XMS_ITS | Encounter Summary ---
Author Organization [facility] Address [address] [place] [address] Care Team Providers Care Handbag Framer Name Role Phone Kalani Guillaume MD Primary Care Provider [phone] Reason for Visit * Reason Onset Date Comments Elevated HR 01/06/2023 Encounter Details Date Type Department Care Team (Late st Contact Info) Description 01/06/2023 Telephone [facility] [address] [facility] [address] [place] [address] Emiliana Ocampo MD [address] [facility] [address] [place] [address] Elevated HR Social History Tobacco Use Types Packs/Day Years Used Date Smoking Tobacco: Former Cigarettes Q uit: 06/01/1986 Smokeless Tobacco: Never Alcohol Use Standard Drinks/Week Comments Yes 14 (1 standard drink = 0.6 oz pu re alcohol) Sex and Gender Information Value Date Recorded Sex Assigned at Not on file Legal Sex Male 5:18 PM INSULATION EXTRUDER OPERATOR Gender Identity Not on file Sexual Orientation Not on file documented as of this encounter Miscellaneous Notes * Telephone Encounter - Brielle Allison RN - 01/06/2023 11:40 AM CDT I called and spoke to Jose regarding the heart rhythm and BB. He is outside now picking tomatoes. Advised to get out of the sun. Instructions given regarding low sodium diet and 1800 fluid restriction. * Telephone Encounter - Sarah Anderson - 01/06/2023 10:55 AM CDT Provider: Dr Chung / Dr Gimenez Person Calling: Jose Phone #: [phone] Relationship to patient: , on PHI Caller states pt's HR is 102 today, BP 136/91. She states pt was taken off of Atenolol last week. She states pt hasn't been feeling well, HR and BP have been fluctuating for the last 2 weeks. Pt isfeeling weak and tired. Caller asks that both Drs are notified. -Sarah Anderson documented in this encounter Plan of Treatment Upcoming Encounters Date Type Department Care Team (Late st Contact Info) Description 04/02/2025 11:00 AM CDT Appointment [facility] [place] [address] [place] [id number] Roger Gimenez MD [address] [place] [address] 05/31/2025 8:00 AM INSULATION EXTRUDER OPERATOR Procedure visit [facility] [address] [place] [phone] 09/04/2025 2:40 PM CDT Office Visit [facility] [address] [place] [phone] Johan Nicholas FNP [address], [address] [place] [phone] 11/15/2025 2:20 PM CDT Office Visit [facility] [address] [place] [phone] Emiliana Ocampo MD [address] [place] [phone] Pattie Brunson, JESSICA [address] [facility] [address] [place] [address] documented as of this encounter Visit Diagnoses Not on filedocumented in this encounter Care Teams Handbag Framer Relationship Specialty Start Date End Date Kalani Guillaume MD [address] [place] [address] PCP - General Family Practice 12/31/16 documented as of this encounter
--- OUTSIDE RECORDS SUMMARY | 2025-03-10 16:35 | XMS_ITS | Encounter Summary ---
Author Organization [facility], [facility] Address [address] [address] Phone Care Team Providers Care Curriculum Specialist Name Role Phone Kalani Guillaume MD Primary Care Provider [phone] Reason for Visit * Reason Comments Med Refill Encounter Details Date Type Department Care Team (Late st Contact Info) Description 05/17/2022 Refill [facility] [address] [address] Carline Richards NP [address] [address] Social History Tobacco Use Types Packs/Day Years Used Date Smoking Tobacco: Former Cigarettes Q uit: 1985 Smokeless Tobacco: Never Alcohol Use Standard Drinks/Week [...] on filedocumented in this encounter Care Teams Curriculum Specialist Relationship Specialty Start Date End Date Kalani Guillaume MD [address] [place], [place] [phone] PCP - General Family Medicine 05/15/20 documented as of this encounter
--- OUTSIDE RECORDS SUMMARY | 2025-03-10 16:35 | XMS_ITS | Encounter Summary ---
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
--- OUTSIDE RECORDS SUMMARY | 2025-03-10 16:35 | XMS_ITS | Encounter Summary ---
Author Organization [facility] Address [address] [place] [address] Care Team Providers Care Distribution Accounting Clerk Name Role Phone Kalani Guillaume MD Primary Care Provider [phone] Reason for Referral * Outpatient Services (Routine) - Closed Specialty Diagnoses / Procedures Referred By Contac t Referred To Contact Diagnoses PVD (peripheral vascular disease) Procedures CL ARTERIAL FEMORAL RUNOFF Charity Ocampo MD NO ADDRESS ON FILE Referral ID Status Reason Start Date Expiration Date Visits Re quested Visits Authorized [id number] Closed 02/09/2012 02/08/2013 1 1 Encounter Details Date Type Department Care Team (Latest Contact Info) Description 02/09/2012 Ancillary Orders [facility] Interventional Radiology [address] 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 Gender Identity Not on file Sexual Orientation Not on file Occupation Industry Job Start Date Job End Date Not on file Not on file Not on file Not on file documented as of this encounter Plan of Treatment Not on file documented as of this encounter Results * CL ARTERIAL FEMORAL RUNOFF (02/09/2012 7:06 PM CDT) Narrative 08/10/2017 8:11 PM DERRICK BOAT CAPTAIN FINAL - See Provider Note Procedure Note 07/24/2015 FINAL - See Provider Note us Charity Ocampo MD FLUOROSCOPY ORDERABLES Final Result documented in this encounter Visit Diagnoses Diagnosis PVD (peripheral vascular disease) Peripheral vascular disease, unspecified documented in this encounter Care Teams Distribution Accounting Clerk Relationship Specialty Start Date End Date Kalani Guillaume MD [address] [place] [address] PCP - General Family Practice 12/31/16 documented as of this encounter
--- OUTSIDE RECORDS SUMMARY | 2025-03-10 16:35 | XMS_ITS | Clinical Summary ---
Author Organization [facility] Address [address] [place] [address] Care Team Providers Care Financial Services Consultant Name Role Phone Kalani Guillaume MD Primary Care Provider Allergies Active Allergy Reactions Criticality Noted Date Comments Iodine Rash Low 12/12/2008 Morphine Rash Low 12/12/2008 Povidone-Iodine Rash Low 12/12/2008 Medications ascorbic acid (VITAMIN C) 1,000 mg Oral Tab Take 1,000 mg by mouth 2 times daily. Active vitamin B complex (B-COMPLEX) Oral Tab Take 1 Tablet by mouth 2 times daily. Active Safford-3 Fatty Acids (SUPER OMEGA-3) 1,000 mg Oral Cap Take 1 Capsule by mouth 2 times daily. Active Garlic Oral Cap Take 1 Capsule by mouth 2 times daily. Active diphenhydrAMINE-a cetaminophen (TYLENOL PM EXTRA STRENGTH) 25-500 mg Oral Tab Take 1 Tablet by mouth 2 times daily. Active Cranberry 500 mg Oral Cap Take 500 mg by mouth 2 times daily. Active LANSOPRAZOLE (PREVACID ORAL) Take 20 mg by mouth daily . Active indomethacin (INDOCIN) 25 mg capsule Take 25 mg by mouth 3 times daily. Active NITROSTAT 0.4 mg Tablet, Sublingual DISSOLVE ONE TABLET UNDER THE TONGUE EVERY 5 MINUTES NEEDED FOR CHEST PAIN. DO NOT EXCEED A TOTAL OF 3 DOSES IN 15 MINUTES 25 Tablet 2 6 Active tamsulosin (FLOMAX) 0.4 mg capsule Take 0.4 mg by mouth daily. Active clonazePAM (KlonoPIN) 0.5 mg Tablet Take 0.5 mg by mouth 2 times daily as needed . 7 Active Calcium-Magnesium -Zinc Tablet Take 1 Tablet by mouth 2 times daily. Active triamcinolone acetonide (KENALOG) 0.1 % Cream Apply to affected area 1 time daily as needed. 8 Active VITAMIN A ORAL Take 1 Tablet by mouth 2 times daily. Active cholecalciferol, vitamin D3, (VITAMIN D3 ORAL) Take 1 Tablet by mouth daily. Active aspirin (ECOTRIN EC) 81 mg Tablet, Delayed Release (E.C.) Take 81 mg by mouth daily. Active nitroglycerin (NITROSTAT) 0.4 mg Tablet, Sublingual DISSOLVE ONE TABLET UNDER THE TONGUE EVERY 5 MINUTES NEEDED FOR CHEST PAIN. DO NOT EXCEED A TOTAL OF 3 DOSES IN 15 MINUTES 25 Tablet 3 0 Active elderberry fruit (ELDERBERRY ORAL) Take by mouth daily. Active rosuvastatin (Crestor) 20 mg tablet Take 1 Tablet (20 mg) by mouth daily at bedtime. 30 Tablet 11 0 Active atenoloL (TENORMIN) 50 mg tablet Take 1 tablet by mouth twice daily 180 Tablet 3 0 Active amLODIPine (NORVASC) 10 mg tablet Take 1 tablet by mouth once daily 90 Tablet 3 0 Active isosorbide mononitrate (IMDUR) 60 mg Extended Release 24 hour tablet Take 1 tablet by mouth once daily 90 Tablet 3 0 Active furosemide (LASIX) 20 mg tablet Take 1 Tablet (20 mg) by mouth daily. Starting 05/02/2020 30 Tablet 6 0 Active Symbicort 160-4.5 mcg/actuation HFA Aerosol Inhaler 0 Active albuterol (PROVENTIL,VENTOL IN) 2.5 mg /3 mL (0.083 %) Solution for Nebulization USE 1 VIAL IN NEBULIZER 4 TIMES DAILY UNTIL COUGH IS COMPLETELY GONE 0 Active Docosahexanoic Acid-Eicosapent 120-180 mg Capsule Take 1 Capsule by mouth 2 times daily. Active cilostazoL (PLETAL) 100 mg Tablet TAKE 1 TABLET BY MOUTH TWICE DAILY BEFORE MEAL(S) 180 Tablet 1 Active rivaroxaban (Xarelto) 2.5 mg TabletIndications :Atherosclerosis of lime artery of both lower extremities with intermittent claudication Take 1 Tablet (2.5 mg) by mouth 2 times daily. 180 Tablet 3 1 Active Active Problems Problem Noted Date Diagnosed Date Acute diastolic congestive heart failure 020 S/P shoulder replacement, right 01/17/2020 Primary osteoarthritis, right shoulder 0 S/P shoulder replacement, left 04/25/2019 Preoperative general physical examination 2018 Essential hypertension 04/03/2019 Gastroesophageal reflux disease without esophagi tis 04/03/2019 Benign prostatic hyperplasia with lower urinary tract symptoms 04/03/2019 Anemia 04/03/2019 Chronic kidney disease, stage 3 04/03/2019 Dyslipidemia 12/08/2016 CAD (coronary atherosclerotic disease) 7 Carpal tunnel syndrome of right wrist 12/24/2015 PAD (peripheral artery disease) 11/05/2015 Hip joint replacement by other means 08/11/2010 Resolved Problems Problem Noted Date Diagnosed Date Resolved Date Atherosclerotic PVD with int ermittent claudication 01/14/2012 02/02/2017 Family History Medical History Relation Name Comments Heart Disease Brother 1 Other Brother 2 Unknown Daughter 1 Unknown Daughter 2 Unknown Daughter 3 Unknown Daughter 4 Heart Disease Father Heart Disease Mother Lung Cancer Sister Unknown Son 1 Unknown Son 2 Relation Name Status Comments Brother 1 (Age 49) Brother 2 Gunshot wound Daughter 1 Alive Daughter 2 Alive Daughter 3 Alive Daughter 4 Alive Father (Age 61) Mother (Age 82) Sister Son 1 Alive Son 2 Alive Social History Tobacco Use Types Packs/Day Years Used Date Smoking Tobacco: Former Cigarettes 4 30 1 08/02/1955 - 06/01/1986 Smokeless Tobacco: Never Tobacco Cessation:Counseling Given: No Alcohol Use Standard Drinks/Week Comments Yes 14 (1 standard drink = 0.6 oz pu re alcohol) wine Sex and Gender Information Value Date Recorded Sex Assigned at Not on file Legal Sex Male 3:37 AM RETAIL MARKETING SPECIALIST Gender Identity Not on file Sexual Orientation Not on file Occupation Industry Job Start Date Job End Date Not on file Not on file Not on file Not on file Last Filed Vital Signs Vital Sign Reading Time Taken Comments Blood Pressure 124/84 08/06/2020 12:55 PM RETAIL MARKETING SPECIALIST Pulse 73 08/06/2020 12:55 PM RETAIL MARKETING SPECIALIST Temperature 36.4 C (97.6 F) 01/18/2020 8:00 AM CDT Respiratory Rate 16 01/18/2020 8:00 AM CDT Oxygen Saturation 98% 08/06/2020 12:55 PM RETAIL MARKETING SPECIALIST Inhaled Oxygen Concentration - - Weight 81 kg (178 lb 9.6 oz) 08/06/2020 12:55 PM RETAIL MARKETING SPECIALIST Height 175.3 cm (5' 9 ) 08/06/2020 12:55 PM RETAIL MARKETING SPECIALIST Body Mass Index 26.37 08/06/2020 12:55 PM RETAIL MARKETING SPECIALIST Plan of Treatment Health Maintenance Due Date Last Done Comments DTAP/TDAP/TD VACCINES (1 - Tdap) 1959 PNEUMOCOCCAL VACCINE 50+ YEARS (1 of 1 - PCV) 06/05/19 92 ZOSTER VACCINE (1 of 2) 1992 RSV VACCINE (60+ or ) (1 - 1-dose 75+ series) 2017 INFLUENZA VACCINE (#1) 2025 Medical Devices Implanted Type Area Data Warehouse Analyst Device Identifier Shelf Expiration Date Model / Serial / Lot Patch Vascu-Guard [id number]-[id number] - [id number] Implanted:Qty : 1 on 02/09/2012 at [facility] Biological Right: Arterial SYNOVIS- B[employer] INC 09/16/2016 [id number] / / [id number] Sealant Coseal 4ml [id number] - [id number] Implanted:Qty : 1 on 02/09/2012 at [facility] Biological Right: Arterial CORTES- HLTHCARE CALIN 09/12/2012 [id number] / / [id number] Cement Simplex Hvisc 6194-1-010 - [id number] Implanted:05/2019 by Ian Perkins MD at [facility] (Quantity not on file) Cement Left: Shoulder GAMAL- HOWMEDICA INT INC 11/11/2020 6194-1-01 0 / / [id number] Cement Simplex Hvisc 6194-1-010 - [id number] Implanted:10/2019 by Ian Perkins MD at [facility] (Quantity not on file) Cement Right: Shoulder GAMAL- [employer] [id number] 03/13/2021 6194-1- 0 / / [id number] Mesh Mod Kugel Rnd 10cm [id number] - [id number] Implanted:Qty : 1 on 03/06/2015 by Raymond Matias MD at [facility] Mesh Left: Groin CR BARD- DAVOL INC 11/09/2019 [id number] / / [id number] Sealant Mynx Arlen 5fr [id number] - [id number] Implanted:Qty : 1 on 02/09/2012 at [facility] Sealant Left: Arterial ACCESS CLOSURE 10/11/2012 [id number] / / [id number] Head Hum Simpliciti [id number] - [id number] Implanted:Qty : 1 on 04/25/2019 by Ian Perkins MD at [facility] Shoulder Left: Shoulder TORNIER INC 03/15/2024 [id number] / / [id number] 2 Head Hum Simpliciti Nucleus Sz3 [id number] - [id number] Implanted:Qty : 1 on 04/25/2019 by Ian Perkins MD at [facility] Shoulder Left: Shoulder TORNIER INC 06/27/2023 [id number] / / [id number] Glenoid Aequalis Perform Pgd Crtlc Xl40 Vwl821 - [id number] Implanted:Qty : 1 on 01/17/2020 by Ian Perkins MD at [facility] Shoulder Right: Shoulder TOR[employer]ER INC [id number] 02/22/2022 [id number] / / [id number] Head Hum Simpliciti Nucleus Sz3 [id number] - [id number] Implanted:Qty : 1 on 01/17/2020 by Ian Perkins MD at [facility] Shoulder Right: Shoulder TORNIER INC [id number] 09/28/2023 [id number] / / [id number] Head Hum Simpliciti [id number] - [id number] Implanted:Qty : 1 on 01/17/2020 by Ian Perkins MD at [facility] Shoulder Right: Shoulder TORNIER INC [id number] 08/14/2024 [id number] / / [id number] Zilver 7x80- 7 Implanted: (Quantity not on file) Stent Comp Glnd Aqls 40 Lg Implanted:Qty : 1 on 04/25/2019 by Ina Perkins MD at [facility] Left: Shoulder TORNIER INC 08/03/2023 [id number] / / [id number] Insurance [employer] [id number] HMO RX [employer] Medicare Part D RX CAAL PLANS (INTERNAL) [facility] Internal Plans Advance Directives For more information, please contact: [phone] Documents on File Type Date Recorded Patient Sales And Marketing Agent Expl anation Advance Directive POA 04/25/2019 8:59 AM Advance Directive POA Advance Directive Living Will 04/25/2019 8:59 AM Advance Directive Living Will * Full Code (Latest Code Status on File) Date Activated Date Inactivated Comments 01/17/2020 12:49 PM 01/18/2020 2:25 PM * Full Code Date Activated Date Inactivated Comments 01/17/2020 7:26 AM 01/17/2020 12:49 PM * Full Code Date Activated Date Inactivated Comments 04/25/2019 3:54 PM 04/26/2019 3:37 PM * Full Code Date Activated Date Inactivated Comments 04/25/2019 9:14 AM 04/25/2019 3:53 PM * Full Code Date Activated Date Inactivated Comments 01/07/2017 6:51 AM 01/07/2017 4:55 PM Care Teams Financial Services Consultant Relationship Specialty Start Date End Date Kalani Guillaume MD [address] [place] [address] PCP - General Family Practice 12/31/16
--- OUTSIDE RECORDS SUMMARY | 2025-03-10 16:35 | XMS_ITS | Clinical Summary ---
Author Organization [facility], [facility] Address [address] [place] [address] Phone Care Team Providers Care Social Worker Health Services Name Role Phone Kalani Guillaume MD Primary Care Provider [phone] Allergies Active Allergy Reactions Criticality Noted Date Comments Adhesive Tape Rash High 02/10/2023 Dermabond allergy Iodine Rash Low 12/12/2008 Morphine Rash Low 12/12/2008 Povidone-Iodine Rash Low 12/12/2008 Medications tamsulosin (FLOMAX) 0.4 MG 24 hr capsule Take 0.4 mg by mouth daily Active rosuvastatin (CRESTOR) 20 MG tablet Take 20 mg by mouth 1 (one) time each day 0 Active Rivaroxaban 2.5 MG tablet Take 15 mg by mouth 1 (one) time each day 0 Active isosorbide mononitrate (IMDUR) 60 MG 24 hr tablet 30 mg 1 (one) time each day 0 Active furosemide (LASIX) 20 MG tablet Take 40 mg by mouth 1 (one) time each day 0 Active diphenhydrAMINE- acetaminophen (TYLENOL PM) 25-500 MG per tablet Take 2 tablets by mouth in the morning and 2 tablets in the evening. Active VITAMIN B COMPLEX-C PO Take 1 tablet by mouth twice a day Active VITAMIN A PO Take 1 tablet by mouth twice a day Active omega-3 (FISH OIL) 1000 MG capsule Take 1 capsule by mouth twice a day Active LANSOPRAZOLE PO Take 20 mg by mouth twice a day Active GARLIC OIL PO Take 1 capsule by mouth twice a day Active ELDERBERRY PO Take by mouth daily Active Cholecalciferol (Vitamin D) 25 MCG (1000 UT) tablet Take by mouth twice a day Active aspirin (ST JACLYN) 81 MG EC tablet Take 81 mg by mouth 1 (one) time each day Active Cranberry 500 MG tablet Take 1 tablet by mouth in the morning and 1 tablet in the evening. Active albuterol HFA (PROVENTIL HFA;VENTOLIN HFA) 108 (90 Base) MCG/ACT inhaler Inhale 2 puffs every 6 (six) hours if needed for wheezing Active fexofenadine (KOKO) 60 MG tablet Take 60 mg by mouth 1 (one) time each day Active fluticasone (FLONASE) 50 MCG/ACT nasal spray Administer 1 spray into each nostril 2 (two) times a day Active gabapentin (NEURONTIN) 100 MG capsule Take 300 mg by mouth in the morning and 300 mg in the evening. Active sulfaSALAzine (AZULFIDINE) 500 MG tablet Take 1,000 mg by mouth in the morning and 1,000 mg in the evening. Active NIFEdipine XL (PROCARDIA XL) 30 MG 24 hr tablet Take 30 mg by mouth 1 (one) time each day 2 Active allopurinol (ZYLOPRIM) 300 MG tablet Take 1 tablet by mouth once daily 90 tablet 2 Active metoprolol succinate XL (TOPROL XL) 25 MG 24 hr tablet Take 25 mg by mouth in the morning. 3 Active HYDROcodone-acet aminophen (NORCO) 5-325 MG per tablet Take 1 tablet by mouth every 6 (six) hours if needed for moderate pain No more than 3 a day 3 Active potassium chloride (KLOR-CON M20) 20 MEQ CR tablet Take 20 mEq by mouth 1 (one) time each day Active ascorbic acid (VITAMIN C) 1000 MG tablet Take 1,000 mg by mouth 1 (one) time each day Active finasteride (PROSCAR) 5 MG tablet Take 5 mg by mouth 1 (one) time each day 4 03/16/20 25 Active hydrALAZINE 25 MG tablet Take 25 mg by mouth in the morning and 25 mg at noon and 25 mg in the evening. 4 Active predniSONE 5 MG tablet Take 5 mg by mouth 1 (one) time each day 4 Active indomethacin (INDOCIN) 25 MG capsule Take 25 mg by mouth 1 (one) time if needed for mild pain Active Active Problems Problem Noted Date Diagnosed Date Adenocarcinoma of sigmoid colon 09/30/2023 Heart failure with reduced ejection fraction Cardiomyopathy 06/04/2023 Symptomatic congestive heart failure 06/04/2023 Atrial fibrillation 01/07/2023 Stage 3b chronic kidney disease 08/07/2020 Chronic diastolic congestive heart failure 04/29 Anemia 04/03/2019 Benign prostatic hyperplasia with lower urinary tract symptom 04/03/2019 Essential hypertension 04/03/2019 Gastro-esophageal reflux disease without esophag itis 04/03/2019 Coronary atherosclerosis 12/08/2016 Dyslipidemia 12/08/2016 Peripheral vascular disease 11/05/2015 Family History Medical History Relation Comments Heart disease Brother Heart disease Father Hypertension Father Hypertension Mother Hypertension Sibling Relation Status Comments Brother Father Mother Sibling Sister Social History Tobacco Use Types Packs/Day Years Used Date Smoking Tobacco: Former Cigarettes Q uit: 1985 Smokeless Tobacco: Never Tobacco Cessation:Counseling Given: Not Answered Alcohol Use Standard Drinks/Week Comments Yes 0 (1 standard drink = 0.6 oz pur e alcohol) Sex and Gender Information Value Date Recorded Sex Assigned at Not on file Legal Sex Male 12:07 PM EST Gender Identity Not on file Sexual Orientation Not on file Last Filed Vital Signs Vital Sign Reading Time Taken Comments Blood Pressure 146/82 10/03/2024 10:35 AM CDT Pulse 72 10/03/2024 10:35 AM CDT Temperature 36.5 C (97.7 F) 10/02/2020 10:42 AM CDT Respiratory Rate - - Oxygen Saturation 97% 09/30/2023 10:42 AM CDT Inhaled Oxygen Concentration - - Weight 74.8 kg (165 lb) 10/03/2024 10:35 AM CDT Height 175.3 cm (5' 9 ) 10/03/2024 10:35 AM CDT Body Mass Index 24.37 10/03/2024 10:35 AM CDT Plan of Treatment Health Maintenance Due Date Last Done Comments Pneumococcal Vaccine: 50+ Ye ars (1 of 2 - PCV) 1961 Influenza Vaccine (#1) 2025 Hepatitis B Vaccine Aged Out No longe r eligible based on patient's age to complete this topic Insurance [facility] PPO ([phone]) Care Teams Social Worker Health Services Relationship Specialty Start Date End Date Kalani Guillaume MD [address] [place], [place] [address] PCP - General Family Medicine 05/15/20
--- OUTSIDE RECORDS SUMMARY | 2025-03-10 16:35 | XMS_ITS | Encounter Summary ---
Author Organization [facility] Address [address] [place] [address] Care Team Providers Care Paramedic Name Role Phone Kalani Guillaume MD Primary Care Provider Encounter Details Date Type Department Care Team (Latest Contact Info) Description 08/09/2003 Outpatient Historical [facility] Orthopedics- 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
--- OUTSIDE RECORDS SUMMARY | 2025-03-10 16:35 | XMS_ITS | Clinical Summary ---
Author Organization [facility] [place] Address [address] [place] [address] Care Team Providers Care Stave Inspector Name Role Phone Kalani Guillaume MD Primary Care Provider + [phone] Allergies Active Allergy Reactions Criticality Noted Date Comments Adhesive Rash High 02/10/2023 Dermabond allergy Iodine Rash Low 12/12/2008 Meperidine Rash Low 02/25/2023 Morphine Rash Low 12/12/2008 Povidone-Iodine Rash Low 12/12/2008 Medications elderberry fruit (ELDERBERRY ORAL) Take by mouth daily. 0 Active aspirin (ECOTRIN EC) 81 mg Tablet, Delayed Release (E.C.) Take 81 mg by mouth daily. 9 Active cranberry fruit extract (cranberry extract) 500 mg Tablet Take by mouth 2 times daily. Active vit B complex 100 no.2/herbs (VITAMIN B COMPLEX 100 2-HERBS ORAL) Take 1 Tablet by mouth 2 times daily. Active LANSOPRAZOLE, BULK, MISC Take 20 mg by mouth 2 times daily. Active VITAMIN A ORAL Take 1 Tablet by mouth 2 times daily. Active cholecalciferol, vitamin D3, (VITAMIN D3 ORAL) Take 1 Tablet by mouth daily. 8 Active indomethacin (INDOCIN) 25 mg capsule TAKE 1 CAPSULE BY MOUTH THREE TIMES DAILY NEEDED FOR GOUT 2 Active sulfaSALAzine (AZULFIDINE) 500 mg tablet Take 500 mg by mouth daily. Active gabapentin (NEURONTIN) 300 mg capsule Take 300 mg by mouth daily. 2 Active albuterol sulfate 90 mcg/Actuation inhaler Take 2 Puffs by inhalation every 6 hours as needed. Active budesonide-formo teroL (SYMBICORT) 160-4.5 mcg/actuation HFA Aerosol Inhaler Take 2 Puffs by inhalation daily. 0 Active tamsulosin (FLOMAX) 0.4 mg capsule Take 0.4 mg by mouth daily. 7 Active fexofenadine (KOKO) 60 mg tablet Take 60 mg by mouth daily. Active acetaminophen (TYLENOL) 500 mg tablet Take 500 mg by mouth 2 times daily. Active HYDROcodone-acet aminophen (NORCO) 5-325 mg tabletIndication s:Biventricular ICD (implantable cardioverter-def ibrillator) in place Take 1 Tablet by mouth every 6 hours as needed for Pain, Moderate. Max Daily Amount: 4 Tablets 20 Tablet 4 Active allopurinoL (ZYLOPRIM) 300 mg tablet Take 300 mg by mouth daily. Active ascorbic acid, vitamin C, (VITAMIN C) 1,000 mg Tablet Take 1,000 mg by mouth 2 times daily. Active ferrous sulfate 325 mg (65 mg iron) tablet Take 1 Tablet by mouth daily. Active fluticasone propionate (FLONASE) 50 mcg/spray [place], Suspension nasal inhaler USE 1 SPRAY(S) IN EACH NOSTRIL TWICE DAILY NEEDED FOR ALLERGIES Active predniSONE (DELTASONE) 5 mg tablet Take 1 Tablet by mouth daily. 4 Active furosemide (LASIX) 40 mg tablet Take 1 tablet by mouth once daily 90 Tablet 3 4 Active hydrALAZINE (APRESOLINE) 25 mg tablet Take 1 Tablet (25 mg) by mouth 3 times daily. 270 Tablet 3 4 Active isosorbide mononitrate (IMDUR) 30 mg Extended Release 24 hour tablet take 1 tablet by mouth once daily in the morning 90 Tablet 3 4 Active rosuvastatin (CRESTOR) 20 mg tabletIndication s:Atherosclerosi s of coronary artery, unspecified vessel or lesion type, unspecified whether angina present, unspecified whether [place] or transplanted heart TAKE 1 TABLET BY MOUTH ONCE DAILY AT BEDTIME 90 Tablet 3 5 Active metoprolol succinate (TOPROL XL) 25 mg Extended Release 24 hour tabletIndication s:Second degree heart block,Sick sinus syndrome (CMS/HCC),Paroxy smal atrial fibrillation (CMS/HCC) Take 1 tablet by mouth once daily 90 Tablet 3 5 Active rivaroxaban (Xarelto) 15 mg Tablet Take 1 Tablet (15 mg) by mouth daily with supper. 90 Tablet 3 5 Active NIFEdipine (PROCARDIA XL) 30 mg Extended Release 24 hour tablet Take 1 tablet by mouth once daily 90 Tablet 3 5 Active potassium CHLORIDE (K-DUR,KLOR-CON M20) 20 mEq Extended Release tablet Take 1 tablet by mouth once daily 90 Tablet 5 Active diphenhydrAMINE- acetaminophen (TYLENOL PM) 25-500 mg Tablet Take 2 Tablets by mouth 2 times daily. Active nitroglycerin (NITROSTAT) 0.4 mg Tablet, Sublingual Place 1 Tablet (0.4 mg) under tongue every 5 minutes as needed for Chest Pain. 25 Tablet 6 5 Active nitroglycerin (NITROSTAT) 0.4 mg Tablet, Sublingual DISSOLVE ONE TABLET UNDER THE TONGUE EVERY 5 MINUTES NEEDED FOR CHEST PAIN. 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 09/01/2024 SSS (sick sinus syndrome) 02/25/2024 Congestive heart failure wit h left ventricular diastolic dysfunction, NYHA class 3 06/04/2023 Cardiomyopathy 06/04/2023 A-fib 01/07/2023 Chronic diastolic congestive heart failure 04/29 S/P shoulder replacement, right 01/17/2020 Primary osteoarthritis, right shoulder 0 S/P shoulder replacement, left 04/25/2019 Gastroesophageal reflux disease without esophagi tis 04/03/2019 Preoperative general physical examination 2018 Essential hypertension 04/03/2019 Benign prostatic hyperplasia with lower urinary tract symptoms 04/03/2019 Anemia 04/03/2019 Chronic kidney disease, stage 3 04/03/2019 Dyslipidemia 12/08/2016 ASHD (arteriosclerotic heart disease) 12/08/2016 Carpal tunnel syndrome of right wrist 12/24/2015 PAD (peripheral artery disease) 11/05/2015 Hip joint replacement by other means 08/11/2010 Resolved Problems Problem Noted Date Diagnosed Date Resolved Date Atherosclerotic PVD with int ermittent claudication 01/14/2012 02/02/2017 Encounters Date Type Department Care Team Description 03/01/2025 2:00 PM CDT Office Visit [facility] [facility] [id number] [place] [phone] Roger Gimenez MD ASHD (arteriosclerotic heart disease) (Primary Dx); History of coronary artery stent placement; Chronic combined systolic and diastolic CHF, NYHA class 3 (CMS/HCC); Ischemic dilated cardiomyopathy (CMS/HCC); Atrial fibrillation, unspecified type (CMS/HCC); Chronic anticoagulation; 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; Essential hypertension; Dyslipidemia 02/28/2025 8:00 AM CDT Procedure visit [place] [address] [place] [phone] Sick sinus syndrome (CMS/HCC) (Primary Dx); Atrial fibrillation, unspecified type (CMS/HCC); Congestive heart failure, unspecified HF chronicity, unspecified heart failure type (CMS/HCC); Ischemic dilated cardiomyopathy (CMS/HCC); Automatic implantable cardioverter-defibril lator in situ 02/26/2025 Telephone [place] [address] [place] [phone] Roger Gimenez MD 02/26/25 Myears Appt Needs Rescheduled 01/23/2025 External Device Data STL ABSTRACTION Provider, Abstract 12/30/2024 Refill [place] [id number] [place] [phone] Roger Gimenez MD 12/27/2024 External Device Data STL ABSTRACTION Provider, Abstract 12/27/2024 External Device Data STL ABSTRACTION Provider, Abstract 12/19/2024 Telephone [place] [address] [place] [phone] Roger Gimenez MD Medication Ok To Take? from Last 3 Months Immunizations Immunization Administration Dates Next Due Influenza Seasonal Unspecified Formulation IM ,10/24/2015 Family History Medical History Relation Name Comments [...] Cigarettes Q uit: 06/01/1986 Smokeless Tobacco: Never Tobacco Cessation:Counseling Given: Not Answered Alcohol Use Standard Drinks/Week Comments Yes 14 (1 standard drink = 0.6 oz pu re alcohol) Feeling Safe Answer Date Recorded Are you in a relationship wi th someone who hurts you emotionally and/or physically? 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[employer] Gender Identity Not on file Sexual Orientation Not on file Last Filed Vital Signs Vital Sign Reading Time Taken Comments Blood Pressure 120/60 03/01/2025 2:02 PM CDT Pulse 62 03/01/2025 2:02 PM CDT Temperature 36.5 C (97.7 F) 07/06/2023 3:06 PM 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 [employer]AD[employer] Respiratory Rate 16 11/17/2023 2:50 PM CDT Oxygen Saturation 94% 03/01/2025 2:02 PM CDT Inhaled Oxygen Concentration - - Weight 74.8 kg (165 lb) 03/01/2025 2:02 PM CDT Height 175.3 cm (5' 9 ) 03/01/2025 2:02 PM CDT Body Mass Index 24.37 03/01/2025 2:02 PM CDT Plan of Treatment Upcoming Encounters Date Type Department Care Team (Late st Contact Info) Description 04/02/2025 11:00 AM CDT Appointment [facility] Ultrasound [place] [address] [place] [phone] Roger Gimenez MD [address] [place] [phone] 05/31/2025 8:00 AM SUPERVISOR [employer]SE [employer]ING Procedure visit [facility] [address] [place] [phone] 09/04/2025 2:40 PM CDT Office Visit [facility] [address] [place] [phone] Johan Nicholas [facility] [address], [address] [place] [phone] 11/15/2025 2:20 PM CDT Office Visit [facility] [address] [place] [phone] Emiliana Ocampo MD [address] [place] [phone] Pattie Brunson NP [address], [address] [place] [phone] Health Maintenance Due Date Last Done Comments DTAP/TDAP/TD VACCINES (1 - Tdap) 1961 PNEUMOCOCCAL VACCINE 50+ YEA RS (1 of 2 - PCV) 1961 ZOSTER VACCINE (1 of 2) 1992 RSV VACCINE (60+ or ) (1 - 1-dose 75+ series) 2017 INFLUENZA VACCINE (#1) 2025 06/14/2016, 2015 COLORECTAL SCREENING Discontinued 01/02/2022 Colorectal Cancer Screening Discontinued FIT-DNA Q 3 years Discontinued FIT/FOBT Q 1 year Discontinued Flex Sig/CT Colonography Q 5 years Discontinued Medical Devices Implanted Type Area Research And Development Scientist Device Identifier Shelf Expiration Date Model / Serial / Lot Patch Vascu-Guard Vg-[id number] - [id number] Implanted:Qty : 1 on 02/09/2012 Biological Right: Arterial SYNOVIS- BIO-VASCULAR INC 09/16/2016 VG-0108N / / [id number] Sealant Coseal 4ml [id number] - [id number] Implanted:Qty : 1 on 02/09/2012 Biological Right: Arterial CORTES- HLTHCARE CALIN 09/12/2012 [id number] / / [id number] Cement Simplex Hvisc 6194-1-010 - [id number] Implanted:05/2019 by Ian Perkins MD (Quantity not on file) Cement Left: Shoulder GAMAL- ACS GlobalMEDICA INT INC 11/11/2020 6194-1-0 / / [id number] Cement Simplex Hvisc 6194-1-010 - [id number] Implanted:10/2019 by Ian Perkins MD (Quantity not on file) Cement Right: Shoulder GAMAL- HOWMEDICA INT INC [id number] 03/13/2021 6194-1-0 10 / / [id number] Power Cleaner Operator-D [place] Xt Hf Quad Mri [id number] Df4 Surescan [id number] - [id number] Implanted:Qty : 1 on 07/06/2023 by Emiliana Ocampo MD at [facility] Defibrillator Left: Chest MEDTRONIC- CARD RHYTHM MGMT 10/09/2024 [id number] / [id number] / M Lead Capsurefix Novus 58cm Endocardial Pacing [id number] - [id number] Implanted:Qty : 1 on 02/04/2023 at [facility] Lead Left: Chest MEDTRONIC- CRM - BULK BUY 10/27/2024 [id number] / [id number] / Lead Pacing Capsure Fix Novus 52cm [id number] - Csc - [id number] Implanted:Qty : 1 on 02/04/2023 at [facility] Lead Left: Chest MEDTRONIC- CRM - BULK BUY 11/13/2024 [id number] / [id number] / Lead Sprint Quattro Secure 62cm [id number] - Csc - [id number] Implanted:Qty : 1 on 07/06/2023 by Emiliana Ocampo MD at [facility] Lead Left: Chest MEDTRONIC- CRM - BULK BUY 04/12/2025 [id number] / [id number] / Lead Attain 88cm St Vent Quad 4798-88 - [id number] Implanted:Qty : 1 on 07/06/2023 by Emiliana Ocampo MD at [facility] Lead Left: Chest MEDTRONIC- CARD RHYTHM MGMT 04/05/2025 4798-88 / [id number] 1V / Mesh Mod Kugel Rnd 10cm 849756 - [id number] Implanted:Qty : 1 on 03/06/2015 by Raymond Matias MD Mesh Left: Groin CR BARD- DAVOL INC 11/09/2019 [id number] / / [id number] Pacemaker [place] Xt Dr Mri Ipg Dual Chmbr Surescan W1dr01 - [id number] Implanted:Qty : 1 on 02/04/2023 at [facility] Pacemaker Left: Chest MEDTRONIC- CRM - BULK BUY 06/27/2024 [id number] / [id number] / Sealant Mynx Arlen 5fr [id number] - [id number] Implanted:Qty : 1 on 02/09/2012 Sealant Left: Arterial ACCESS CLOSURE 10/11/2012 [id number] / / [id number] Head Hum Simpliciti [id number] - [id number] Implanted:Qty : 1 on 04/25/2019 by Ian Perkins MD Shoulder Left: Shoulder TORNIER INC 03/15/2024 [id number] / / Head Hum Simpliciti Nucleus Sz3 [id number] - [id number] Implanted:Qty : 1 on 04/25/2019 by Ian Perkins MD Shoulder Left: Shoulder TORNIER INC 06/27/2023 [id number] / / [id number] Glenoid Aequalis Perform Pgd Crtlc Xl40 Lgy567 - [id number] Implanted:Qty : 1 on 01/17/2020 by Ian Perkins MD Shoulder Right: Shoulder TORNIER INC [id number] 02/22/2022 [id number] / / [id number] Head Hum Simpliciti [id number] - [id number] Implanted:Qty : 1 on 01/17/2020 by Ian Perkins MD Shoulder Right: Shoulder TORNIER INC [id number] 08/14/2024 [id number] / / [id number] Head Hum Simpliciti Nucleus Sz3 Tls501 - [id number] Implanted:Qty : 1 on 01/17/2020 by Ian Perkins MD Shoulder Right: Shoulder TORNIER INC [id number] 09/28/2023 [id number] / / [id number] Zilver 7x80- 7 Implanted: (Quantity not on file) Stent Comp Glnd Aqls 40 Lg Implanted:Qty : 1 on 04/25/2019 by Ian Perkins MD Left: Shoulder TORNIER INC 08/03/2023 [id number] / / [id number] Procedures Procedure Name Priority Date/Time Associated Diagnosis Comments VT REM INTERROG PM/LDLS PM/IDS <90 D TECH REVIEW Routine 02/28/2025 8:33 PM CDT Sick sinus syndrome (CMS/HCC) Atrial fibrillation, unspecified type (CMS/HCC) Congestive heart failure, unspecified HF chronicity, unspecified heart failure type (CMS/HCC) Ischemic dilated cardiomyopathy (CMS/HCC) Automatic implantable cardioverter-defibril lator in situ VT INTERROGATION EVAL REMOTE </90 D 1/2/TRIM LINE WORKER LD DFB Routine 02/28/2025 8:33 PM CDT Sick sinus syndrome (CMS/HCC) Atrial fibrillation, unspecified type (CMS/HCC) Congestive heart failure, unspecified HF chronicity, unspecified heart failure type (CMS/HCC) Ischemic dilated cardiomyopathy (CMS/HCC) Automatic implantable cardioverter-defibril lator in situ from Last 3 Months Results * VT INTERROGATION EVAL REMOTE </90 D 1/2/TRIM LINE WORKER LD DFB, VT REM INTERROG PM/LDLS PM/IDS <90 D TECHREVIEW (02/28/2025 8:33 PM CDT) 02/28/2025 8:33 PM CDT Narrative INTERFACE SYSTEM - 03/02/2025 5:22 AM CDT Remote Transmission Report Date of Procedure: February 28, 2025 Events: 10 NSVT events with short durations AT/AF: 515( 14.8%) PT has Hx of Af and is on Xarelto Comments: [facility] remote transmission reveals normal tri chamber ICD function with stable available threshold and impedance trends. Presenting EGM indicates Atrial tracking , atrial blanking noted with biventricular capture Follow-up with Remote in 3 months. Procedure Note Provider, Historical - 03/02/2025 Remote Transmission Report Date of Procedure: February 28, 2025 Events: 10 NSVT events with short durations AT/AF: 515( 14.8%) PT has Hx of Af and is on Xarelto Comments: [facility]link remote transmission reveals normal tri chamber ICD function withstable available threshold and impedance trends. Presenting EGM indicates Atrial tracking , atrial blanking noted withbiventricular capture Follow-up with Remote in 3 months. Emiliana Ocampo MD CARDIAC SERVICES ORDERRosie HUNTS Edited Result - Final INTERFACE SYSTEM Refer to clinic/hospital department from Last [address] [facility] Medicare Part D RX CAAL PLANS (INTERNAL) [facility] Internal Plans Advance Directives For more information, please contact: [phone] Documents on File Type Date Recorded Patient Gifted Teacher Expl anation Advance Directive POA 04/25/2019 8:59 AM Advance Directive POA Advance Directive Living Will 04/25/2019 8:58 AM Advance Directive Living Will * Full Code (Latest Code Status on File) Date Activated Date Inactivated Comments 07/06/2023 3:51 PM 07/06/2023 8:30 PM * Full Code Date Activated Date Inactivated Comments 07/06/2023 11:11 AM 07/06/2023 3:51 PM * Full Code Date Activated Date Inactivated Comments 02/04/2023 1:06 PM 02/04/2023 5:52 PM * Full Code Date Activated Date Inactivated Comments 02/04/2023 7:48 AM 02/04/2023 1:06 PM Care Teams Stave Inspector Relationship Specialty Start Date End Date Kalani Guillaume MD [address] [place] [address] PCP - General Family Practice 12/31/16
--- OUTSIDE RECORDS SUMMARY | 2025-03-10 16:35 | XMS_ITS | Encounter Summary ---
Author Organization [facility] Address [address] [place] [address] Care Team Providers Care Poultry Farm Manager Name Role Phone Kalani Guillaume MD Primary Care Provider Encounter Details Date Type Department Care Team (Latest Contact Info) Description 05/31/2003 Outpatient Historical [facility] Orthoped[facility]- 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
--- OUTSIDE RECORDS SUMMARY | 2025-03-10 16:36 | XMS_ITS | Data Portability ---
Author Organization [facility] Mehul Kenny [facility], [facility], [facility] Address [address] [place] [address] Care Team Providers Care Beauty Consultant Name Role Phone KALANI SAUNDERS Primary Care Provider TONIA Lou OTHER [facility] OTHER VERNON BARBOZA OTHER [phone] FREDDIE GARNETT OTHER Assessment Encounter Date Assessment Date Assessment LastModified by Organization Details LastModified Time 03/07/2024 03/07/2024 NOTE: Patient was seen on 03/06/2024 but the visit was accidentally deleted by myself, so this is postdated. [email or web address] Not available 03/08/2024 15:58:00 Plan of Treatment Reminders Order Date Submit Date Provider Last Modified By Organization Details Last Modified Time Details Appointments None recorded. Lab urinalysis, dipstick 2023 024 [facility] ([facility]), [address] [place] [address], [phone], 4 21:01:36 Referral urologist referral 2023 024 [email or web address] Not available 10:49:52 Procedures None recorded. Surgeries None recorded. Imaging None recorded. Medication Orders prednisone 20 mg tablet 2024 025 [facility], [address], [place], [address], 14:03:44 Patient TargetsNo targets recorded. Patient InstructionsNo instructions recorded. Reason for Referral Urologist Referral for Lower urinary tract symptoms due to benign prostatic hypertrophy Referring Physician: Kalani Saunders, Family Medicine, Encounter Date: 03/07/2024 Results Created Date Observation Date Name Description Value Unit Range Abnormal Flag Note LastModifiedBy Organization Detail LastModifiedTime 03/06/2003/06/2024 HbA1c (hemo globi n A1c), blood HbA1c 5.1 Not Available [facility] ([facility]) [address] [place], [address], 03/06/2024 14:58:55 03/23/20 24 03/24/2024 PSA, TOTAL PSA, total 0.23 NG/mL < or = 4.00 normal The total PSA value from this assay syste m is stand ardiz ed again st the WHO stand franklin. The test resul t will be appro ximat avinash 20% lower when raghu red to the equim olar- stand ardiz ed total PSA (Banegas man Coult er). Raghu rison of seria l PSA resul ts shoul d be inter prete d with this fact in mind. This test was perfo rmed using the Sieme ns chemi lumin escen t metho d. Value s obtai korin from diffe rent assay metho ds canno t be used inter [place] . PSA level s, regar dless of value , shoul d not be inter prete d as absol viviane evide nce of the prese nce or absen ce of disea se. Not Available [employer] [facility] [address] , [place], [address], 03/24/2024 06:58:21 Result Notes None recorded. Problems Name Problem SNOMED Code Status Onset Date Resolution Date Notes Provider Name and Address Organization Details Recorded Time Unspecifi ed umbilical hernia Active 2006 Umbilical Herniorrh aphy; Date: 2006; 2 11:24AM by Renee Edward LPN, Office Visit; Promoted; acuity set as *; RENEE patel [facility] 5 11:40:15 Atypical chest pain 589445040 Active 2021 Atypical Chest Pain; Normal Coronary Angiograp 1996, 2001.; 2 11:24AM by Renee Edward LPN, Office Visit; Promoted; acuity set as *; RENEE patel [facility] 5 11:39:10 Recurrent inguinal hernia 140662342832 8 Active 2021 R Inguinal Herniorrh aphy; 2 11:24AM by Renee Edward LPN, Office Visit; Promoted; acuity set as *; RENEE patel [facility] 5 11:40:09 Pneumonia 003137067 Active 2021 PNEUMONIA ; Recorded 2 11:24AM by Renee Edward LPN, Office Visit; Promoted; acuity set as *; RENEE patel [facility] 5 11:40:03 Urolithia sis 55391570 Active 2021 Urolithia sis; 2 11:24AM by Renee Edward LPN, Office Visit; Promoted; acuity set as *; RENEE patel [facility] 5 11:40:20 Benign hypertens ion 91079719 Active 2021 HTN; 2 11:24AM by Renee Edward LPN, Office Visit; Promoted; acuity set as *; RENEE patel [facility] 5 11:39:16 Heart disease 30622120 Active 2022 RENEE patel [facility] 3 10:29:20 Gout 73035538 Active 2022 RENEE patel [facility] 3 10:29:29 Asthma 202875583 Active 2022 RENEE patel, [facility] 3 10:29:56 Bronchiti s 39561628 Active 2022 RENEE JACOBSON EDWARD amanda [facility] 5 11:39:22 Candidias is of mouth 06064875 Active 2022 [facility]ABarbara [facility] 11:39:32 Malignant neoplasm of skin 492512821 [facility] 14:39:42 Congestiv e heart failure 22004428 Active 2023 RENEE patel [facility] 5 11:39:51 Chronic atrial fibrillat ion 571541900 Active 2023 RENEE EDWARD [facility] 5 11:39:41 Osteoarth ritis 613808494 Active 2023 RENEE EDWARD [facility] 5 11:39:55 Chronic renal insuffici ency 580479706 Active 2023 RENEE EDWARD [facility] 5 11:39:46 Problem Notes None recorded. Procedures Surgical History Date Name Laterality Status Provider Name and Address Organization Details Recorded Time 2 colonoscopy completed LIU NASH [facility] 10/12/2022 14:36:35 Shoulder joint surgery completed RENEE EDWARD [facility] 06/20/2024 11:07:17 Hip Replacement completed RENEE INDIRA EDWARD [facility] 06/20/2024 11:07:29 hernia repair completed RENEE EDWARD [facility], Annie 06/20/2024 11:07:43 Imaging Results None recorded. Procedure Notes None recorded. Medical Equipment None Reported. Allergies Allergen ID Allergen Name Allergen Category Reaction Reaction Severity Criticality Documentation Date Start Date Code Code System Note Provider Name and Address Organization Details Recorded Time 2368 morphine medicatio n rash Not available Not available 10/12/2022 7052 RxNorm [facility] 3 14:21:00 2369 Demerol medicatio n rash Not available Not available 10/12/2022 72274 1 RxNorm [facility] 3 14:21:09 2370 iodine medicatio n rash Not available Not available 10/12/2022 5933 RxNorm [facility] 3 14:21:23 98781 morphine sulfate medicatio n Not available Not available Not available 01/09/2023 45656 RxNorm Comme nt: Recor ded 06/01 11:24 AM by Renee mancera, ARRON, Offic e Visit ; Promo chiki; Trish moy ce: *; ; Not Available [facility] 3 02:24:00 88659 iodine medicatio n Not available Not available Not available 01/09/2023 5933 RxNorm Comme nt: Recor ded 06/01 11:24 AM by Renee mancera, EGG WORKER, Offic e Visit ; Promo chiki; Signpj moy ce: *; Reaso n: Drug aller gy; ; Not Available [facility] 3 02:24:00 Medications Name Sig Start Date Stop Date Status Note LastModified by Organization Details LastModified Time nifedipin e ER 30 mg tablet,ex tended release 24 hr TAKE 1 TABLET BY MOUTH ONCE DAILY active Not Available Not Available No t Available furosemid e 40 mg tablet TAKE 1 TABLET BY MOUTH ONCE DAILY active Not Available Not Available No t Available hydralazi ne 10 mg tablet TAKE 1 TABLET BY MOUTH THREE TIMES DAILY 05/29 completed Not Available Not Available Not Available cilostazo l 100 mg tablet TAKE 1 TABLET BY MOUTH TWICE DAILY BEFORE MEAL(S) 09/05 completed Not Available Not Available Not Available promethaz ine-DM 6.25 mg-15 mg/5 mL oral syrup every six hours, as needed 03/06 completed Not Available Not Available Not Available nystatin 100,000 unit/mL oral suspensio n Take 5 mL 4 times a day by oral route for 14 days. 05/18 completed Not Available Not Available Not Available doxycycli ne hyclate 100 mg capsule Take 1 capsule twice a day by oral route. 04/19 completed Not Available Not Available Not Available sulfasala zine 500 mg tablet TAKE 1 TABLET BY MOUTH TWICE DAILY WITH FOOD (MEAL OR SNACK) active Not Available Not Available No t Available albuterol sulfate 2.5 mg/3 mL (0.083 %) solution for nebulizat ion QID till cough complete ly gone 2019 active LB/ls; 64267; Recorded 04/23/20 20 9:11AM by Rangel branham LPN (Authori zed through Kalani Saunders MD), Refill Request; Refill Quantity : 24; Millilit er; Not Available Not Available Not Available azithromy keiko 250 mg tablet TAKE 2 TABLETS (500 MG) BY ORAL ROUTE ONCE DAILY FOR 1 DAY THEN 1 TABLET (250 MG) BY ORAL ROUTE ONCE DAILY FOR 4 DAYS 05/18 completed Not Available Not Available Not Available tizanidin e 4 mg tablet 03/06 completed Not Available Not Available Not Available cephalexi n 250 mg capsule 03/06 completed Not Available Not Available Not Available hydrocodo ne 5 mg-acetam inophen 325 mg tablet TAKE 1 TABLET BY MOUTH EVERY 6 HOURS NEEDED . DO NOT EXCEED 4 PER 24 HOURS active Not Available Not Available No t Available minocycli ne 100 mg capsule 03/06 completed Not Available Not Available Not Available methylpre dnisolone 32 mg tablet 10/09 completed Not Available Not Available Not Available prednison e 20 mg tablet TAKE 2 TABLETS BY MOUTH ONCE DAILY IN THE MORNING FOR 5 DAYS 03/05 completed Not Available Not Available Not Available isosorbid e mononitra te ER 30 mg tablet,ex tended release 24 hr TAKE 1 TABLET BY MOUTH ONCE DAILY IN THE MORNING active Not Available Not Available No t Available clonazepa m 0.5 mg tablet 10/12 completed Not Available Not Available Not Available prednison e 5 mg tablet TAKE 1 TABLET BY MOUTH ONCE DAILY active Not Available Not Available No t Available metolazon e 5 mg tablet 03/06 completed Not Available Not Available Not Available atenolol 25 mg tablet TAKE 1 TABLET BY MOUTH ONCE DAILY 04/01 completed Not Available Not Available Not Available hydralazi ne 25 mg tablet TAKE 1 TABLET BY MOUTH THREE TIMES DAILY active Not Available Not Available No t Available triamcino lone acetonide 0.1 % topical cream APPLY A THIN LAYER TO THE AFFECTED AREA(S) BY TOPICAL ROUTE 2 TIMES PER DAY 03/06 completed Not Available Not Available Not Available isosorbid e mononitra te ER 60 mg tablet,ex tended release 24 hr daily 03/06 completed Not Available Not Available Not Available tamsulosi n 0.4 mg capsule TAKE 2 CAPSULES BY MOUTH ONCE DAILY FOR PROSTATE active Not Available Not Available No t Available trazodone 100 mg tablet TAKE 1 TABLET BY MOUTH AT BEDTIME 10/12 completed Not Available Not Available Not Available trazodone 150 mg tablet TAKE 1 TABLET BY MOUTH AT BEDTIME 03/06 completed Not Available Not Available Not Available indometha keiko 25 mg capsule TAKE 1 CAPSULE BY MOUTH 1-2 TIMES WEEKLY NEEDED FOR SEVERE PAIN active Not Available Not Available No t Available nitroglyc mark 0.4 mg sublingua l tablet DISSOLVE ONE TABLET UNDER THE TONGUE EVERY 5 MINUTES NEEDED FOR CHEST PAIN. DO NOT EXCEED A TOTAL OF 3 DOSES IN 15 MINUTES active Not Available Not Available No t Available gabapenti n 300 mg capsule TAKE 1 CAPSULE BY MOUTH TWICE DAILY active Not Available Not Available No t Available allopurin ol 300 mg tablet TAKE 1 TABLET BY MOUTH ONCE DAILY active Not Available Not Available No t Available mupirocin 2 % topical ointment APPLY A SMALL AMOUNT TO THE AFFECTED AREA BY TOPICAL ROUTE 3 TIMES PER DAY x 10 DAYS 03/06 completed Not Available Not Available Not Available furosemid e 20 mg tablet TAKE 1 TABLET BY MOUTH ONCE DAILY 05/18 completed Not Available Not Available Not Available gabapenti n 100 mg capsule TAKE 1 CAPSULE BY MOUTH ONCE DAILY 10/12 completed Not Available Not Available Not Available metoprolo l succinate ER 25 mg tablet,ex tended release 24 hr TAKE 1 TABLET BY MOUTH ONCE DAILY active Not Available Not Available No t Available triamcino lone acetonide 0.025 % topical cream 03/06 completed 0; Recorded 08/19/19 5:05PM by Liu Nash, Office Visit; Not Available Not Available Not Available levofloxa keiko 750 mg tablet TAKE 1 TABLET BY MOUTH ONCE DAILY 04/01 completed Not Available Not Available Not Available methylpre dnisolone 4 mg tablets in a dose pack as directed 03/06 completed Not Available Not Available Not Available albuterol sulfate HFA 90 mcg/actua tion aerosol inhaler Inhale 2 puffs every 4 hours by inhalati on route. 2024 active Not Available Not Available Not Avai lable fluticaso ne propionat e 50 mcg/actua tion nasal spray,teodoro pension USE 1 SPRAY(S) IN EACH NOSTRIL ONCE DAILY active Not Available Not Available No t Available atenolol 50 mg tablet two times daily 04/01 completed 0; Recorded 08/19/19 22 3:31PM by Liu Nash, Office Visit; Not Available Not Available Not Available finasteri de 5 mg tablet TAKE 1 TABLET BY MOUTH ONCE DAILY active Not Available Not Available No t Available amoxicill in 875 mg-potass ium clavulana te 125 mg tablet TAKE 1 TABLET BY MOUTH EVERY 12 HOURS FOR 7 DAYS 10/09 completed Not Available Not Available Not Available rosuvasta tin 20 mg tablet TAKE 1 TABLET BY MOUTH ONCE DAILY AT BEDTIME active Not Available Not Available No t Available Klor-Con M20 mEq tablet,ex tended release TAKE 1 TABLET BY MOUTH ONCE DAILY active Not Available Not Available No t Available Vytorin 10 mg-40 mg tablet daily 03/06 completed 0; Recorded 08/19/19 22 3:31PM by Liu Nash, Office Visit; Not Available Not Available Not Available aspirin active Not Available Not Avail able Not Available Flonase at bedtime 04/01 completed 2 sprays to each nare at bedtime for annabelle nce.; Recorded 06/10/20 10:00AM by Karla Kovacs, DILLON, Office Visit; Refill Quantity : 1; Bottle; Not Available Not Available Not Available cranberry active Not Available Not Erica ilable Not Available garlic active Not Available Not Availa ble Not Available ipratropi um bromide four times daily, as needed 04/01 completed vo BP/dh; Recorded 06/10/20 10:00AM by Karla Kovacs, DILLON, Office Visit; Refill Quantity : 50; Ampule; Not Available Not Available Not Available nitroglyc mark 04/01 completed 0; Recorded 08/19/19 22 5:03PM by Liu Nash, Office Visit; Not Available Not Available Not Available Prednison e (Judson) 04/01 completed 0; Recorded 08/19/19 22 5:03PM by Liu Nash, Office Visit; Not Available Not Available Not Available isosorbid e dinitrate 04/01 completed 0; Recorded 08/19/19 22 5:01PM by Liu Nash, Office Visit; Not Available Not Available Not Available iron active Not Available Not Availa ble Not Available furosemid e daily 04/01 completed 0; Recorded 08/19/19 22 3:31PM by Liu Nash, Office Visit; Not Available Not Available Not Available indometha keiko 04/01 completed 0; Recorded 08/19/19 22 5:00PM by Liu Nash, Office Visit; Not Available Not Available Not Available Swanquarter-3 active 0; Recorded 08/19/19 22 5:03PM by Liu Nash, Office Visit; Not Available Not Available Not Available Vitamin D3 active 0; Recorded 08/19/19 22 5:06PM by Liu Nash, Office Visit; Not Available Not Available Not Available lansopraz ole active 0; Recorded 08/19/19 22 5:01PM by Liu Nash, Office Visit; Not Available Not Available Not Available gabapenti n 04/01 completed 0; Recorded 08/19/19 22 5:00PM by Liu Nash, Office Visit; Not Available Not Available Not Available clonazepa m 04/01 completed 0; Recorded 08/19/19 22 4:47PM by Liu Nash, Office Visit; Not Available Not Available Not Available cilostazo l 04/01 completed 0; Recorded 08/19/19 22 3:37PM by Liu Nash, Office Visit; Not Available Not Available Not Available Trazodone at bedtime 03/06 completed Recorded 04/13/20 22 1:19PM by Kalani Saunders MD, Office Visit; Refill Quantity : 30; Tablet; Not Available Not Available Not Available Multivita min w/Mineral s, Iron active 0; Recorded 08/19/19 5:02PM by Liu Nash, Office Visit; Not Available Not Available Not Available Elderberr y active 0; Recorded 08/19/19 22 4:57PM by Liu Nash, Office Visit; Not Available Not Available Not Available Symbicort 160 mcg-4.5 mcg/actua tion HFA aerosol inhaler INHALE 1 PUFF BY MOUTH TWICE DAILY active Not Available Not Available No t Available FeroSul 325 mg (65 mg iron) tablet TAKE 1 TABLET BY MOUTH ONCE DAILY 04/01 completed Not Available Not Available Not Available B12 active Not Available Not Availa ble Not Available miconazol e [address] 1 muco every day by buccal route. 05/18 completed Not Available Not Available Not Available Xarelto 15 mg tablet TAKE 1 TABLET BY MOUTH ONCE DAILY WITH SUPPER active Not Available Not Available No t Available potassium chloride ER 20 mEq tablet,ex tended release TAKE 1 TABLET BY MOUTH TWICE DAILY active Not Available Not Available No t Available Entresto 24 mg-26 mg tablet TAKE 1 TABLET BY MOUTH TWICE DAILY 03/06 completed Not Available Not Available Not Available Spiriva Respimat 1.25 mcg/actua tion solution for inhalatio n INHALE 2 SPRAY(S) BY MOUTH ONCE DAILY 03/06 completed Not Available Not Available Not Available potassium chloride 20 mEq/20 mL (1 mEq/mL)-0 .9% NaCl IV syr (concent. ) active Not Available Not Available Not Available Xarelto 2.5 mg tablet 03/06 completed 0; Recorded 08/19/19 22 5:06PM by Liu Nash, Office Visit; Not Available Not Available Not Available Airsupra 90 mcg-80 mcg/actua tion HFA aerosol inhaler INHALE 2 PUFFS 4 TIMES DAILY NEEDED FOR SHORTNES S OF BREATH 03/05 completed Not Available Not Available Not Available Vitals Date Recorded Body height Body mass index (BMI) Body weight Body temperature Oxygen saturation Oxygen saturation in Arterial blood by Pulse oximetry Heart rate Systolic And Diastolic Provider Name and Address Organization Details Last Updated DateTime 5 175.26 cm 26 kg/m2 79511.2 6 g 97.7 [degF] 92 % 92 % 85 /min 102/60 mm[Hg] RENEE INDIRA EDWARD [facility] 5 11:06:05 Date Recorded Body height Body mass index (BMI) Body weight Body temperature Oxygen saturation Oxygen saturation in Arterial blood by Pulse oximetry Heart rate Systolic And Diastolic Provider Name and Address Organization Details Last Updated DateTime 5 175.26 cm 25.1 kg/m2 17766.7 g 97.3 [degF] 95 % 95 % 83 /min 128/70 mm[Hg] RENEE [facility] 5 11:34:53 Date Recorded Body height Body mass index (BMI) Body weight Body temperature Oxygen saturation Oxygen saturation in Arterial blood by Pulse oximetry Heart rate Systolic And Diastolic Provider Name and Address Organization Details Last Updated DateTime 5 175.26 cm 26.6 kg/m2 09124.6 3 g 98.2 [degF] 93 % 93 % 84 /min 120/70 mm[Hg] RENEE EDWARD [facility] 5 14:01:41 Date Recorded Body height Provider Name an d Address Organization Details Last Updated DateTime 03/07/2024 175.26 cm RENEE [facility] 03/07/2024 12:49:14 Date Recorded Body height Body mass index (BMI) Body weight Body temperature Oxygen saturation Oxygen saturation in Arterial blood by Pulse oximetry Heart rate Systolic And Diastolic Provider Name and Address Organization Details Last Updated DateTime 4 175.26 cm 25.1 kg/m2 64951.7 g 97.1 [degF] 96 % 96 % 83 /min 140/80 mm[Hg] HAILY OLVERA [facility] 4 13:50:58 Social History None recorded. Functional Status Question Answer Note LastModified by Organizat ion Details LastModified Time What is your level of alcohol consumption? Occasional [email or web address] Information not available 10/12/2022 Mental Status None recorded. Family History Relationship Description Onset Age of this Age Resolved Age Notes LastModified by Organization Details LastModified Time Father Hypertensive disorder mom, sister , brothe r [email or web address] Not available 04/01/2023 10:31:08 Father Heart disease mom and siblin gs [email or web address] Not available 04/01/2023 10:31:23 Medical History Condition Response Coronary Artery Disease N Other N Gout Y Kidney Stones N Blood Diseases N Hyperthyroidism N Breast Cancer N Blood Transfusion N Hypothyroidism N Lung Disease N COPD Y Depression N Defects or Inherited Disease N Developmental or Behavioral Disorders N Breast Problem N Difficulty Swallowing N Anesthesia Complications N Meniere's disease N Anxiety Disorder N Muscle, Joint, or Bone Problems Y Vision or Eye Problems N Arthritis Y Infertility N Polyps N Cancer N Stroke N Varicosities N Endometriosis N Bladder or Kidney Problems Y High Cholesterol Y Liver Disease N Fibromyalgia N Headaches N Kidney Disease Y Allergies/Hayfever N Heart Problems Y Ear or Hearing Problems Y Hospitalizations N Thyroid Problems N GI Problems Y ADD/ADHD N Skin Problems N Eating Disorder N Anemia N Constipation N Mental Illness N Ovarian Cancer N Diabetes N Bedwetting N Seizures/Epilepsy N Tuberculosis N Eczema N Diverticulitis N Abuse/Domestic Violence N Asthma N Reflux/GERD N Hepatitis N Heart Disease N Pulmonary Embolism N Chronic Ear Infections N Pre-Eclampsia N Hypertension Y Chicken Pox N Autism Spectrum Disorder (ASD) N Osteoporosis N Thrombophilias N Immunizations Vaccine Type Date Status Note Provider Nam e and Address Organization Details Recorded Time Influenza, split virus, trivalent, preservative 7 completed Not Available [facility] 01/09/2023 02:32:20 Influenza, split virus, trivalent, preservative 6 completed Not Available [facility] 01/09/2023 02:32:20 Past Encounters Encounter ID Performer Location Encounter Start Date Encounter Closed Date Diagnosis/Indication Diagnosis SNOMED-CT Code Diagnosis ICD10 Code Diagnosis IMO Codes Diagnosis Note [id number] Kalani Saunders MD [facility] ([facility]) [address] [place] [phone] 10/12/2022 13:59:25 10/15/2022 15:27:39 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 It seemed he was really complainin g of it so I recommende d ENT and hearing testing but then they say it has been >20 years. Iron defic iency anemia 92323237 D50.9 will recheck iron labs today since he has not been taking any iron. start iron supplement . needs repeat lab in 3 months on the iron Essential hypertension 10577990 I10 needs full labs in 6 months Pain of ear 315084994 H9 2.09 change from amairani to zyrtec. does nasal spray History of gout 87860649 4 Z87.39 [id number] NOMAN ANGELO NP [facility] ([facility]) [address] [place] [address] 12/26/2022 12:38:45 12/26/2022 14:25:05 Bee sting 511363608 T63.91XA Discussed use steroid cream as prescribed until completedD iscussed to take OTC antihistam parvez such as Benadryl Q6H while swelling continues. Discussed care instructio ns - elevate affected area, use cold compress for 10-20 minutes each hour. After 24-48 hours use warm compresses .May utilize baking soda paste - warm water mixed with baking soda applied to skin for 5 minutes then gently rinse. Monitor for signs of worsening allergic reaction such as swelling of lips/tongu e/throat, shortness of breath, difficulty breathing - if occur go to ED. Monitor for signs of infection fever, drainage - if occur return to walk-in or PCP. Return to clinic if any changes, any worsening, any concerns.P atient verbalized understand ing of plan. Tear of skin 379976403 T 14.8XXA Discussed to wash the laceration with soap and water daily. Keep covered if outside to keep wound clean. If you develop any signs of infection such as redness, swelling, increased pain, drainage - follow up with PCP or return to walk-in clinic. Discussed to use ointment as prescribed for area. Return to clinic if any changes, any worsening, any concerns.P atient verbalized understand ing of plan. [id number] Kalani Saunders MD [facility] ([facility]) [address] [place] [phone] 04/01/2023 10:18:50 04/01/2023 11:21:54 Cough 90822102 R05.9 [id number] Cole Rodriguez MD [facility] ([facility]) [address] [place] [phone] 04/09/2023 08:35:41 04/09/2023 18:17:36 Bronchitis 71394603 J40 Patient's had some improvemen t with prednisone . We will continue with prednisone for a few days and start antibiotic s. Patient was encouraged to continue to use his inhalers [id number] Cole Rodriguez MD [facility] [facility] ([facility]) [address] [place] [address] [phone] 5 04/15/2023 09:53:07 04/15/2023 18:34:10 Candidiasis of mouth [id number] B37.0 Likely thrush based on exam. Likely secondary to not rinsing mouth after using steroid inhaler. Start antifungal s. Consider oral fluconazol e if symptoms do not improve. Recommend follow-up with PCP next week Bronchitis 57247946 J40 Continued wheezing is likely secondary to the fact that he has been using his Symbicort for the last 3 days. Was encouraged to rinse out mouth after using Symbicort every time. [id number] Kalani Saunders MD [facility] ([facility]) [address] [place] [address] [phone] 5 04/19/2023 15:10:20 04/19/2023 17:55:55 Candidiasis of mouth 82822419 B37.0 they will get the nystatin and treat the mouth, then hopefully he can use the symbicort after his mouth is treated. Chronic bronchitis 18817 004 J42 will get CXR. likely needs a chronic inhaled steroid - hopefully he can resume one after his mouth is treated. [id number] ANTHONY MAURO-Donn [facility] ([facility]) [address] [place] [address] [phone] 5 05/01/2023 14:57:40 05/01/2023 16:50:32 Acute exacerbation of chronic obstructive pulmonary disease [id number] J44.1 Will start Z-pack today. Encouraged to continue inhalers at home and to make an appointmen t with his pulmonolog ist as he continues to have exacerbati ons. Recommend a follow up with PCP in 2 weeks. If chest pain or severe SOB occurs, should go to ED. Patient verbalizes understand ing. [id number] Kalani Saunders MD [facility] ([facility]) [address] [place] [address] [phone] 5 05/18/2023 11:14:21 05/18/2023 15:13:34 Cough [id number] R05.9 Acute exac erbation of chronic bronchitis 805263965 J44.[address] Sue the , does a pulmonary test then. 05/18/23 Congestive heart failure 69345125 I50.9 sees cardio. pacemaker. elevated BNP at the ER. Wednesday next week go [place] [facility] [place].. will check. his BNP in the ER was 12,000. they incresed his lasix back to 40mg. I suspect we will need to keep him there until he sees cardio. I suspect the sob is heart related. he says it is worse at night when he lays down. Bilateral lower leg edema 149163503 R60.0 still on 40 lasix for 2 more days. Orthopnea 46236661 R06.0 1 [id number] Kalani Saunders MD [facility] ([facility]) [address] [place] [address] [phone] 5 05/26/2023 09:19:21 05/26/2023 12:06:44 Pneumonia 531413802 J18.9 per cxr. finishing course of augmentin. Congestive heart failure 03510806 I50.9 sees cardio. pacemaker. elevated BNP at the ER. Wednesday next week go to [facility] [place].. will check. his BNP in the ER was 12,000. they incresed his lasix back to 40mg. I suspect we will need to keep him there until he sees cardio. I suspect the sob is heart related. he says it is worse at night when he lays down. had echo at [facility] yesterday. they did labs for [facility] today - it should guide his lasix therapy. 05/26/23 Chronic ob structive pulmonary disease 62890371 J44.9 sees pulm. [id number] CHANTELLE MAURO [facility] ([facility]) [address] [place] [address] [phone] 5 06/16/2023 11:57:03 06/16/2023 15:48:56 Dyspnea 264148565 R06.00 Will check CBC, CMP, BNP, chest x-ray, and EKG today. Discussed with patient that SOB is likely associated with his CHF due to worsening CHF symptoms. Discussed importance of following up with cardiologi st within the next week. If chest pain returns or SOB worsens, need to go to ED. Patient and verbalized understand ing. Congestive heart failure 57757986 I50.9 Will increase Lasix from 40mg daily to 40mg twice daily. Encouraged patient to follow up with cardiologi st in 4-5 days and PCP after cardiac follow up. Discussed with patient that if chest pain occurs or SOB worsens, will need to go to ED. Patient and verbalized understand ing. Discussed importance of taking potassium supplement while on Lasix. Patient is currently taking OTC potassium. Anemia [id number] D64.9 Recommend a follow up with PCP. This has been an ongoing issue and labs are similar to previous labs. No critical anemia present today. Irregular heart beat 361 549686 R00.8 EKG was abnormal. Consulted with Dr. Saunders, patients PCP. Due to pacemaker present and no previous EKGs to compare, unable to successful ly interpret EKG today, as it is unclear if abnormalit ies are old or new. Discussed again with patient the importance of returning to ED if chest pain returns or SOB worsens. Patient and significan t other verbalized understand ing. [id number] Kalani Saunders MD [facility] ([facility]) [address] [place] [address] [phone] 5 06/22/2023 09:43:42 06/22/2023 11:25:25 Congestive heart failure 73146823 I50.9 Pt presented with increase SOB to walk-in clinic 06/16/23. BNP was ordered but unfortunat avinash did not get done. Pts lasix was increased from 40 daily to 40mg BID.he is symptomati edwige improved today. no LE edema. check bmp today and supplement potassium. call was made to his cardiologi st to inform them of the changes. 06/22/23. Gout 42370101 M10.9 likely causing his joint pain since nephro stopped his indomethac in and his uric acid was elevated at the time. only on 300mg allopurino l. will recechk uric acid today and try steroid pack. once uric acid wnl then may cont allopurino l for control. Chronic ob structive pulmonary disease 88383433 J44.9 sees pulm. his recent PFT was not very impressive . this indicated his CHF as his main cause of sob. cardio was notified. [id number] Kalani Saunders MD [facility] ([facility]) [address] [place] [address] [phone] 5 09/06/2023 13:36:06 09/06/2023 17:29:22 Dyspnea 452968523 R06.00 chronic. Pain of ear 176570994 H9 2.09 chronic. 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 09.06.23 Anemia 213228250 D64.9 they decline colonoscop y. I discussed the possibilit y of losing microscopi c blood in the stool. they still decline at this time. 09/06/23 Congestive heart failure 41033138 I50.9 cardio. 09/06/23 Osteoarthritis 752131739 M19.90 pr only takes 1-2 times a month for severe pain. nephrology took him off due to renal function, but I think using only 1-2 times a month is acceptable since it works so well. 09/06/23. [id number] Kalani Saunders MD [facility] ([facility]) [address] [place] [address] [phone] 5 03/07/2024 12:48:19 03/07/2024 12:56:36 Benign hypertension 91300856 I10 Blood pressure controlled 03/06/2024 Dysuria 03013676 R30.0 Urine dip was unremarkab le. I believe his issues may be related to worsening benign prostatic hypertroph y. Congestive heart failure 47793775 I50.9 cardio* Chronic ob structive pulmonary disease 73113388 J44.9 was seeing pulm* Osteoarthritis 684794562 M19.90 pr only takes 1-2 times a month for severe pain. nephrology took him off due to renal function, but I think using only 1-2 times a month is acceptable since it works so well. 09/06/23. stable. Having more knee pain but they do not believe he is a surgical candidate. 03/06/2024 Lower urin madhu tract symptoms due to benign prostatic hypertrophy 6738210451 9101 N40.1 We will increase his tamsulosin from 0.4 mg daily to 0.8 mg daily. urology referral. 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 They have been working on his ear 03/06/2024 [id number] Kalani Saunders MD [facility] ([facility]) [address] [place] [address] [phone] 5 05/29/2024 13:36:38 05/29/2024 14:39:31 Benign hypertension 41265688 I10 Blood pressure controlled 03/06/2024 Congestive heart failure 25416291 I50.9 cardio* Chronic at rial fibrillation 554343866 I48.20 With chronic anticoagul ation per cardio* Osteoarthritis 814022882 M19.90 pr only takes 1-2 times a month for severe pain. nephrology took him off due to renal function, but I think using only 1-2 times a month is acceptable since it works so well. 09/06/23. stable. Having more knee pain but they do not believe he is a surgical candidate. 03/06/2024 still mostly the knee pain that is bothering him. goes to PM Dr Garnett for the pm. sent to [facility] who sent him to vascular surgeon... ..seeing one they like at [facility].... .they know his kidneys are bad so they will do blood work and then the CT scan. 05/29/24Dr Ernesto Saunders still giving him the symbicort and nose spray. Chronic re nal insufficiency 643525926 N18.9 Sees nephrology * Peripheral vascular disease 212624684 I73.9 evaluated 05/24/24 for bilateral knee replacemen t. Chronic ob structive pulmonary disease 32474241 J44.9 was seeing pulm* but left cont same med: symbicort, albuterol and flonase... they will cont the meds through me. he usually just takes it once a day...he forgets to take it twice. does not need refills today but will get refills from us. 05/29/24 [id number] Kalani Saunders MD [facility] ([facility]) [address] [place] [address] [phone] 5 06/20/2024 10:51:41 06/20/2024 13:36:14 Upper respiratory infection 58095979 J06.9 Started 2 days ago. Pt. states his chest feels heavy. 06/20/24 Acute exac erbation of chronic obstructive pulmonary disease 133854916 J44.1 no edema, no crackles. [id number] Kalani Saunders MD [facility] ([facility]) [address] [place] [address] [phone] 5 10/09/2024 10:53:23 10/17/2024 14:45:40 Ecchymosis 939442823 R58 57258 This appears to be a rather large bruise to me. It seems superficia l on the skin. I reassured them I do not think that this is the beginning of necrosis and loss of limb. However they are aware that he is very poor vasculatur e in his legs. Follow-up in 1 week to recheck healing process. Health Concerns Section Related Observation LastModified by Organization Detai ls LastModified Time None Recorded Concern Status LastModified by Organization Details LastModified Time None Recorded Advance Directives Directive None Recorded Payers Insurance Date Sequence Insurance Name Policy Number Policy Koenig Covered Member ID Koenig Member ID Guarantor Name 03/02/2025 1 [employer] (MEDICARE REPLACEMENT/A DVANTAGE - PPO) Juan M Sierra [id number] Juan M Sierra Notes Date Note Type Note Provider Name and Address Organization Details Recorded Time 4 text/html Lower Urinary Tract Symptoms (LUTS)Reported by PatientHPIFor associated symptoms, patient reportsabdominal pain,weak force of stream,straining,hesit caesar, anddysuria. For location, patient reportsprostate.ROS as noted in the HPI Patient is here for his 6-month follow-up however he complains of urinary symptoms. The symptoms have been present for the past 2 to 3 months. they are not new or escalating. Kalani Saunders MD [address] [place] [address], [phone], [facility] 03/08/2024 16:06:45 4 text/html 3 month f/u - getting the pulm meds from us since left. does good when he remembers tot grace them twice a day. I am in a lot of pain today.I saw a vascular surgeon in [place], I am also going to see the day after [place] they are going to do a CT scan with contrast. in [facility] with [facility] just said they wanted to do blood work a BMP.... Kalani Saunders MD [address] [place] [address], [phone], [facility] 05/29/2024 14:34:36 5 text/html Upper Respiratory SymptomsReported by PatientUpper Respiratory SymptomsFor quality, patient reportscongested,dry cough, andnasal discharge. For associated symptoms, patient reportschest pain,shortness of breath,difficulty breathing at night,fatigue, andnauseabut reportsno fever. For location, patient reportsheadandchest.RO S as noted in the HPI been about 3 daysjust feels like bronchitis or head coldchest is hurtingsob...cough Kalani Saunders MD [address] [place] [address], [phone], [facility] 06/20/2024 11:26:06 5 text/html ROS as noted in the HPI He has no history of trauma or falls. They do not know where the bruising would come from. Kalani aSunders MD [address] [place] [address], [phone], [facility], [facility] 10/17/2024 13:43:52 5 text/html Annual WellnessReported by PatientSocial/Behavior al HistoryFor physical activity, patient reportsdoes not exercise on a regular basisanddecreased physical activity. For additional lifestyle factors, patient reportsno tobacco use.ROS as noted in the HPI he last did blood work when he went to see Janett Bridges/Oncology. Not Available Not Available Not Available
--- OUTSIDE RECORDS SUMMARY | 2025-03-10 16:36 | XMS_ITS | Encounter Summary ---
Author Organization [facility] Address [address] [place] [address] Care Team Providers Care Sheriff Sergeant Name Role Phone Kalani Guillaume MD Primary Care Provider [phone] Encounter Details Date Type Department Care Team (Latest Contact Info) Description 03/06/2004 Outpatient Historical [facility] [address] 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
--- OUTSIDE RECORDS SUMMARY | 2025-03-10 16:36 | XMS_ITS | Encounter Summary ---
Author Organization [facility] Address [address] [place] [address] Care Team Providers Care Suppression Crew Leader Name Role Phone Kalani Guillaume MD Primary Care Provider Encounter Details Date Type Department Care Team (Latest Contact Info) Description 03/06/2004 Outpatient Historical [facility] Bob Noel MD [address] [place] [address] [place] [address] DISC DIS NEC/NOS-LUMBAR (Primary Dx) Social History Tobacco Use Types Packs/Day Years Used Date Smoking Tobacco: Never Assessed Sex and Gender Information Value Date Recorded Sex Assigned at Not on file 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
--- OUTSIDE RECORDS SUMMARY | 2025-03-10 16:36 | XMS_ITS | Encounter Summary ---
Author Organization [facility] Address [address] [place] [address] Care Team Providers Care Creative Engagement Director Name Role Phone Kalani Guillaume MD Primary Care Provider Encounter Details Date Type Department Care Team (Latest Contact Info) Description 05/26/2005 Inpatient Historical [facility] Cardiac Merchandising Consultant [address] [place] [address] Roger Gimenez MD [address] [facility] [address] [place] [address] CORON ATHEROSCL [place] CORON VESSEL (Primary Dx) Social History Tobacco Use Types Packs/Day Years Used Date Smoking Tobacco: Never Assessed Sex and Gender Information Value Date Recorded Sex Assigned at Not on file Legal Sex Male 3:37 AM CAFETERIA SUPERVISOR Gender Identity Not on file Sexual Orientation Not on file documented as of this encounter Plan of Treatment Not on file documented as of this encounter Procedures Procedure Name Priority Date/Time Associated Diagnosis Comments POC ACTIVATED CLOTTING TIME Routine 05/27/2005 2:36 PM CAFETERIA SUPERVISOR POC ACTIVATED CLOTTING TIME Routine 05/27/2005 1:39 PM CAFETERIA SUPERVISOR BASIC METABOLIC PANEL Routine 05/27/2005 6:14 AM CAFETERIA SUPERVISOR PT AND APTT Routine 05/26/2005 8:49 AM CAFETERIA SUPERVISOR CBC WITHOUT DIFFERENTIAL Routine 05/26/2005 8:49 AM CAFETERIA SUPERVISOR BASIC METABOLIC PANEL Routine 05/26/2005 8:49 AM CAFETERIA SUPERVISOR documented in this encounter Results * (ABNORMAL) POC ACTIVATED CLOTTING TIME (05/27/2005 2:36 PM CAFETERIA SUPERVISOR) [facility] ACT POC 165(H) 79 - 149 sec INTERFACE SYSTEM 05/27/2005 2:36 PM CAFETERIA SUPERVISOR Roger Gimenez MD POINT OF CARE TESTING Final R esult Performing Organization Address [facility] Phone Number INTERFACE SYSTEM Refer to clinic/hospital department * (ABNORMAL) POC ACTIVATED CLOTTING TIME (05/27/2005 1:39 PM CAFETERIA SUPERVISOR) [facility] ACT POC 178(H) 79 - 149 sec INTERFACE SYSTEM 05/27/2005 1:39 PM CAFETERIA SUPERVISOR us Roger Gimenez MD POINT OF CARE TESTING Final R esult Performing Organization Address [facility] Phone Number INTERFACE SYSTEM Refer to clinic/hospital department * (ABNORMAL) BASIC METABOLIC PANEL (05/27/2005 6:14 AM CAFETERIA SUPERVISOR) Pathologist [facility] GLUCOSE 124(H) 70 - 110 mg/dL INTERFACE SYSTEM BUN 20 9 - 20 mg/dL INTERFACE SYSTEM CREATININE 1.4 0.7 - 1.5 mg/dL INTERFACE SYSTEM SODIUM 140 136 - 145 mEq/L INTERFACE SYSTEM POTASSIUM 3.8 3.5 - 5.0 mEq/L INTERFACE SYSTEM CHLORIDE 110 95 - 110 mEq/L INTERFACE SYSTEM CO2 23 22 - 32 mmol/l INTERFACE SYSTEM ANION GAP 11 9 - 20 mEq/L INTERFACE SYSTEM OSMOLALITY, CALCULATED 291 275 - 295 mOsm/Kg INTERFACE SYSTEM CALCIUM 8.1(L) 8.4 - 10.5 mg/dL INTERFACE SYSTEM 05/27/2005 6:14 AM CAFETERIA SUPERVISOR us Roger Gimenez MD CHEMISTRY ORDERABLES Final Re sult Performing Organization Address [facility] Phone Number INTERFACE SYSTEM Refer to clinic/hospital department * PT AND APTT (05/26/2005 8:49 AM CAFETERIA SUPERVISOR) Pathologist [facility] PROTIME 13.0 12.6 - 14.9 Secs INTERFACE SYSTEM Comment: As of 05 note change in normal range. INR 0.9 INTERFACE SYSTEM Comment: Expected Values for INR: DVT/PE Goal INR 2.5; range 2.0 - 3.0 Valve Replacement Tissue Goal INR 2.5; range 2.0 - 3.0 Mechanical Goal INR 3.0; range 2.5 - 3.5 POST-SC Goal INR 2.5; range 2.0 - 3.0 or Goal 3.0; range 2.5 - 3.5 Atrial Fibrillation Goal INR 2.5; range 2.0 - 3.0 Ischemic Stroke Goal INR 2.5; range 2.0 - 3.0 For additional information see Guidelines for Anticoagulation available from the pharmacy Manisha Tran PTT 27.9 24.3 - 37.5 Secs INTERFACE SYSTEM Comment:Therapeutic Range: 05/26/2005 8:49 AM CAFETERIA SUPERVISOR Roger Gimenez MD HEMATOLOGY ORDERABLES Final R esult INTERFACE SYSTEM Refer to clinic/hospital department * (ABNORMAL) CBC WITHOUT DIFFERENTIAL (05/26/2005 8:49 AM CAFETERIA SUPERVISOR) Pathologist [facility] WBC 3.3(L) 4.8 - 10.8 K/ul INTERFACE SYSTEM RBC 4.72 4.60 - 6.20 Mil/ul INTERFACE SYSTEM HEMOGLOBIN 15.4 14.0 - 18.0 g/dL INTERFACE SYSTEM HEMATOCRIT 46.9 41.0 - 53.0 % INTERFACE SYSTEM MCV 99.4 84.0 - 103.0 Fl INTERFACE SYSTEM MCH 32.6 27.0 - 34.0 pg INTERFACE SYSTEM MCHC 32.8 30.0 - 35.0 g/dL INTERFACE SYSTEM RDW 12.9 11.0 - 14.5 % INTERFACE SYSTEM PLATELETS 203 140 - 440 K/ul INTERFACE SYSTEM MPV 10.5 8.9 - 12.8 Fl INTERFACE SYSTEM NEUTROPHILS 53.0 42.2 - 75.2 % INTERFACE SYSTEM LYMPHOCYTES 32.7 24.0 - 44.0 % INTERFACE SYSTEM MONOCYTES 7.6 2.0 - 10.0 % INTERFACE SYSTEM EOSINOPHILS 5.8 0.0 - 7.0 % INTERFACE SYSTEM BASOPHILS 0.9 0.0 - 1.0 % INTERFACE SYSTEM NEUTROPHIL ABSOLUTE 1.8(L) 2.0 - 8.0 K/uL INTERFACE SYSTEM LYMPHOCYTE ABSOLUTE 1.1(L) 1.2 - 4.0 K/ul INTERFACE SYSTEM MONOCYTE ABSOLUTE 0.3 0.1 - 0.6 K/ul INTERFACE SYSTEM EOSINOPHIL ABSOLUTE 0.2 0.0 - 0.7 K/ul INTERFACE SYSTEM BASOPHILS ABSOLUTE 0.0 0.0 - 0.2 K/ul INTERFACE SYSTEM 05/26/2005 8:49 AM CAFETERIA SUPERVISOR Roger Gimenez MD HEMATOLOGY ORDERABLES Final R esult Performing Organization Address [facility] Phone Number INTERFACE SYSTEM Refer to clinic/hospital department * (ABNORMAL) BASIC METABOLIC PANEL (05/26/2005 8:49 AM CAFETERIA SUPERVISOR) GLUCOSE 133(H) 70 - 110 mg/dL INTERFACE SYSTEM BUN 26(H) 9 - 20 mg/dL INTERFACE SYSTEM CREATININE 1.5 0.7 - 1.5 mg/dL INTERFACE SYSTEM SODIUM 141 136 - 145 mEq/L INTERFACE SYSTEM POTASSIUM 4.6 3.5 - 5.0 mEq/L INTERFACE SYSTEM CHLORIDE 108 95 - 110 mEq/L INTERFACE SYSTEM CO2 24 22 - 32 mmol/l INTERFACE SYSTEM ANION GAP 14 9 - 20 mEq/L INTERFACE SYSTEM OSMOLALITY, CALCULATED 297(H) 275 - 295 mOsm/Kg INTERFACE SYSTEM CALCIUM 9.1 8.4 - 10.5 mg/dL INTERFACE SYSTEM 05/26/2005 8:49 AM CAFETERIA SUPERVISOR Roger Gimenez MD CHEMISTRY ORDERABLES Final Re sult Performing Organization Address [facility] Phone Number INTERFACE SYSTEM Refer to clinic/hospital department documented in this encounter Visit Diagnoses Diagnosis Coronary atherosclerosis of [place] coronary artery- Primary documented in this encounter Care Teams Creative Engagement Director Relationship Specialty Start Date End Date Kalani uGillaume MD [address] [place] [id number] PCP - General Family Practice 12/31/16 documented as of this encounter
--- OUTSIDE RECORDS SUMMARY | 2025-03-10 16:36 | XMS_ITS | Encounter Summary ---
Author Organization [employer] Address [address] [place] [address] Care Team Providers Care Guest Services Agent Name Role Phone Kalani Guillaume MD Primary Care Provider [phone] Encounter Details Date Type Department Care Team (Late st Contact Info) Description 03/08/2008 Outpatient Historical HIS IN BED Sj Ed, Physician NO ADDRESS ON FILE Sonido Galvan MD NO ADDRESS ON FILE Roger Gimenez MD [address] [facility] [address] [place] [address] Social History Tobacco Use Types Packs/Day Years Used Date Smoking Tobacco: Never Assessed Sex and Gender Information Value Date Recorded Sex Assigned at Not on file 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 Gender Identity Not on file Sexual Orientation Not on file documented as of this encounter Plan of Treatment Not on file documented as of this encounter Procedures Procedure Name Priority Date/Time Associated Diagnosis Comments CBC WITH DIFFERENTIAL Routine 03/09/2008 4:30 AM CDT PTT Routine 03/09/2008 4:30 AM CDT PTT Routine 03/09/2008 12:01 AM CDT CARDIAC ENZYMES Routine 03/08/2008 8:33 PM CDT CARDIAC ENZYMES Routine 03/08/2008 2:20 PM CDT PTT Stat 03/08/2008 2:20 PM CDT CARDIAC ENZYMES Stat 03/08/2008 8:14 AM CDT CBC WITH DIFFERENTIAL Stat 03/08/2008 8:14 AM CDT PTT Stat 03/08/2008 8:14 AM CDT PROTIME-INR Stat 03/08/2008 8:14 AM CDT BASIC METABOLIC PANEL Stat 03/08/2008 8:14 AM CDT XR CHEST PA OR AP 1 VW Routine 03/08/2008 8:07 AM CDT documented in this encounter Results * (ABNORMAL) PTT (03/09/2008 4:30 AM CDT) PTT 93.2(H) 22.5 - 36.5 Secs [facility] Comment: Therapeutic Range: Hi-level PE/DVT heparin protocol 80.1 -95.0 sec Lo-level PE/DVT heparin protocol 67.1 - 80.0 sec Cardiac Heparin Protocol 67.1 - 85.0 sec Neuro Heparin Protocol 67.1 - 80.0 sec As of 09/01/2007 note change in APTT Normal Range. Blood specimen (specimen) 03/09/2008 4:30 AM CDT 03/09/2008 4:48 AM CDT Roger Gimenez MD HEMATOLOGY ORDERABLES Final R esult INTERFACE SYSTEM Refer to clinic/hospital department [facility] CLIA# [id number] [address] [place] [address] * (ABNORMAL) CBC WITH DIFFERENTIAL (03/09/2008 4:30 AM CDT) EOSINOPHIL ABSOLUTE 0.1 0.0 - 0.7 K/ul [facility] EOSINOPHILS 3.0 0.0 - 7.0 % [facility] RBC 4.17(L) 4.60 - 6.20 Mil/ul [facility] MCHC 33.3 30.0 - 35.0 g/dL [facility] LYMPHOCYTE ABSOLUTE 1.2 1.2 - 4.0 K/ul [facility] LYMPHOCYTES 24.4 24.0 - 44.0 % [facility] MCV 99.3 84.0 - 103.0 Fl [facility] BASOPHILS 0.4 0.0 - 1.0 % [facility] MPV 10.0 8.9 - 12.8 Fl [facility] BASOPHILS ABSOLUTE 0.0 0.0 - 0.2 K/ul [facility] HEMOGLOBIN 13.8(L) 14.0 - 18.0 g/dL [facility] MONOCYTES 7.2 2.0 - 10.0 % [facility] RDW 13.0 11.0 - 14.5 % [facility] MONOCYTE ABSOLUTE 0.3 0.1 - 0.6 K/ul [facility] WBC 4.7(L) 4.8 - 10.8 K/ul [facility] NEUTROPHILS 65.0 42.2 - 75.2 % [facility] MCH 33.1 27.0 - 34.0 pg [facility] NEUTROPHIL ABSOLUTE 3.1 2.0 - 8.0 K/ul [facility] HEMATOCRIT 41.4 41.0 - 53.0 % [facility] PLATELETS 146 140 - 440 K/ul [facility] Blood specimen (specimen) 03/09/2008 4:30 AM CDT 03/09/2008 4:48 AM CDT Roger Gimenez MD HEMATOLOGY ORDERABLES Final R esult INTERFACE SYSTEM Refer to clinic/hospital department [facility] CLIA# [id number] [address] [place] [address] * (ABNORMAL) PTT (03/09/2008 12:01 AM CDT) PTT 90.9(H) 22.5 - 36.5 Secs [facility] Comment: Therapeutic Range: Hi-level PE/DVT heparin protocol 80.1 -95.0 sec Lo-level PE/DVT heparin protocol 67.1 - 80.0 sec Cardiac Heparin Protocol 67.1 - 85.0 sec Neuro Heparin Protocol 67.1 - 80.0 sec As of 09/01/2007 note change in APTT Normal Range. Blood specimen (specimen) 03/09/2008 12:01 AM CDT 03/09/2008 12:10 AM CDT us Roger Gimenez MD HEMATOLOGY ORDERABLES Final R esult Performing Organization Address [facility] de Phone Number INTERFACE SYSTEM Refer to clinic/hospital department [facility] CLIA# [id number] [address] [place] [address] * CARDIAC ENZYMES (03/08/2008 8:33 PM CDT) CKMB 0.5 0.0 - 5.0 ng/mL [facility] TROPONIN I <0.1 0.0 - 1.3 ng/mL [facility] Blood specimen (specimen) 03/08/2008 8:33 PM CDT 03/08/2008 8:51 PM CDT Sonido Galvan MD CHEMISTRY ORDERABLES Siobhan l Result Performing Organization Address [facility] de Phone Number INTERFACE SYSTEM Refer to clinic/hospital department [facility] CLIA# [id number] [address] [place] [address] * CARDIAC ENZYMES (03/08/2008 2:20 PM CDT) TROPONIN I <0.1 0.0 - 1.3 ng/mL [facility] CKMB 0.7 0.0 - 5.0 ng/mL [facility] Blood specimen (specimen) 03/08/2008 2:20 PM CDT 03/08/2008 2:45 PM CDT Sonido Galvan MD CHEMISTRY ORDERABLES Siobhan l Result Performing Organization Address [facility] Phone Number INTERFACE SYSTEM Refer to clinic/hospital department [facility] CLIA# [id number] [address] [place] [address] * (ABNORMAL) PTT (03/08/2008 2:20 PM CDT) PTT 128.2(H) 22.5 - 36.5 Secs [facility] Comment: Therapeutic Range: Hi-level PE/DVT heparin protocol 80.1 -95.0 sec Lo-level PE/DVT heparin protocol 67.1 - 80.0 sec Cardiac Heparin Protocol 67.1 - 85.0 sec Neuro Heparin Protocol 67.1 - 80.0 sec As of 09/01/2007 note change in APTT Normal Range. Blood specimen (specimen) 03/08/2008 2:20 PM CDT 03/08/2008 3:51 PM CDT Roger Gimenez MD HEMATOLOGY ORDERABLES Final R esult Performing Organization Address [facility] Phone Number INTERFACE SYSTEM Refer to clinic/hospital department [facility] CLIA# [id number] [facility] [place] [address] * (ABNORMAL) BASIC METABOLIC PANEL (03/08/2008 8:14 AM CDT) SODIUM 138 136 - 145 mEq/L [facility] CREATININE 1.3 0.7 - 1.5 mg/dL [facility] ANION GAP 14 9 - 20 mEq/L [facility] BUN 20 9 - 20 mg/dL [facility] CO2 25 22 - 32 mmol/l [facility] GLUCOSE 111(H) 70 - 110 mg/dL [facility] CHLORIDE 103 95 - 110 mEq/L [facility] OSMOLALITY, CALCULATED 288 275 - 295 mOsm/Kg [facility] POTASSIUM 4.3 3.5 - 5.0 mEq/L [facility] CALCIUM 9.3 8.4 - 10.5 mg/dL [facility] Blood specimen (specimen) 03/08/2008 8:14 AM CDT 03/08/2008 8:14 AM CDT Sonido Galvan MD CHEMISTRY ORDERABLES Siobhan antunez Result INTERFACE SYSTEM Refer to clinic/hospital department [facility] CLIA# [id number] [address] [place] [address] * (ABNORMAL) CBC WITH DIFFERENTIAL (03/08/2008 8:14 AM CDT) EOSINOPHIL ABSOLUTE 0.1 0.0 - 0.7 K/ul [facility] EOSINOPHILS 2.1 0.0 - 7.0 % [facility] RBC 4.21(L) 4.60 - 6.20 Mil/ul [facility] MCHC 34.5 30.0 - 35.0 g/dL [facility] LYMPHOCYTE ABSOLUTE 0.9(L) 1.2 - 4.0 K/ul [facility] LYMPHOCYTES 18.3(L) 24.0 - 44.0 % [facility] MCV 97.1 84.0 - 103.0 Fl [facility] BASOPHILS 0.4 0.0 - 1.0 % [facility] MPV 9.4 8.9 - 12.8 Fl [facility] BASOPHILS ABSOLUTE 0.0 0.0 - 0.2 K/ul [facility] HEMOGLOBIN 14.1 14.0 - 18.0 g/dL [facility] MONOCYTES 4.4 2.0 - 10.0 % [facility] RDW 13.0 11.0 - 14.5 % [facility] MONOCYTE ABSOLUTE 0.2 0.1 - 0.6 K/ul [facility] WBC 4.8 4.8 - 10.8 K/ul [facility] NEUTROPHILS 74.8 42.2 - 75.2 % [facility] MCH 33.5 27.0 - 34.0 pg [facility] NEUTROPHIL ABSOLUTE 3.6 2.0 - 8.0 K/ul [facility] HEMATOCRIT 40.9(L) 41.0 - 53.0 % [facility] PLATELETS 153 140 - 440 K/ul [facility] Blood specimen (specimen) 03/08/2008 8:14 AM CDT 03/08/2008 8:14 AM CDT Sonido Galvan MD HEMATOLOGY ORDERABLES Fin al Result Performing Organization Address [facility] Phone Number INTERFACE SYSTEM Refer to clinic/hospital department [facility] CLIA# [id number] [address] [place] [address] * (ABNORMAL) PTT (03/08/2008 8:14 AM CDT) PTT 123.5(H) 22.5 - 36.5 Secs [facility] Comment: Therapeutic Range: Hi-level PE/DVT heparin protocol 80.1 -95.0 sec Lo-level PE/DVT heparin protocol 67.1 - 80.0 sec Cardiac Heparin Protocol 67.1 - 85.0 sec Neuro Heparin Protocol 67.1 - 80.0 sec As of 09/01/2007 note change in APTT Normal Range. Blood specimen (specimen) 03/08/2008 8:14 AM CDT 03/08/2008 8:14 AM CDT Sonido Galvan MD HEMATOLOGY ORDERABLES Fin al Result Performing Organization Address [facility] Phone Number INTERFACE SYSTEM Refer to clinic/hospital [facility] CLIA# [id number] [address] [place] [address] * PROTIME-INR (03/08/2008 8:14 AM CDT) PROTIME 14.3 12.8 - 15.8 Secs [facility] Comment:As of 2007 not e change in normal range. INR 1.0 [facility] Comment: Expected Values for INR: DVT/PE Goal INR 2.5; range 2.0 - 3.0 Valve Replacement Tissue Goal INR 2.5; range 2.0 - 3.0 Mechanical Goal INR 3.0; range 2.5 - 3.5 POST-AK Goal INR 2.5; range 2.0 - 3.0 or Goal 3.0; range 2.5 - 3.5 Atrial Fibrillation Goal INR 2.5; range 2.0 - 3.0 Ischemic Stroke Goal INR 2.5; range 2.0 - 3.0 For additional information see Guidelines for Anticoagulation available from the pharmacy [facility], Pharm D. [phone] Blood specimen (specimen) 03/08/2008 8:14 AM CDT 03/08/2008 8:14 AM CDT Sonido Galvan MD HEMATOLOGY ORDERABLES Fin al Result Performing Organization Address [facility] Phone Number INTERFACE SYSTEM Refer to clinic/hospital department [facility] CLIA# [id number] [address] [place] [address] * CARDIAC ENZYMES (03/08/2008 8:14 AM CDT) CKMB 0.8 0.0 - 5.0 ng/mL [facility] TROPONIN I <0.1 0.0 - 1.3 ng/mL [facility] Blood specimen (specimen) 03/08/2008 8:14 AM CDT 03/08/2008 8:14 AM CDT Sonido Galvan MD CHEMISTRY ORDERABLES Siobhan l Result Performing Organization Address [facility] de Phone Number INTERFACE SYSTEM Refer to clinic/hospital department [facility] CLIA# [id number] [address] [place] [address] * XR CHEST PA OR AP (03/08/2008 8:07 AM CDT) Anatomical Region Laterality Modality Chest Other 03/08/2008 8:07 AM CDT Narrative 03/10/2008 12:00 PM CDT Exam: Chest - Portable Date/Time of Exam: Mar 08, 2008 8:07:17 AM History: Chest pain. Findings: There are no comparisons to the AP upright study. Both lungs are well-inflated and clear. The cardiomediastinal silhouette and pulmonary vessels are unremarkable. Impression: No active chest disease. - Dictated By: Elma Mansfield M.D. Electronically Signed By: Elma Mansfield M.D. Date Signed: 03/10/08 [facility] Procedure Note Elma Mansfield MD - 03/10/2008 Exam: Chest - Portable Date/Time of Exam: Mar 08, 2008 8:07:17 AM History: Chest pain. Findings: There are no comparisons to the AP upright study. Both lungs are well-inflated and clear. The cardiomediastinal silhouetteand pulmonary vessels are unremarkable. Impression: No active chest disease. - Dictated By: Elma Mansfield M.D. Electronically Signed By: Elma Mansfield M.D. Date Signed: 03/10/08 [facility] Sonido Galvan MD DIAGNOSTIC IMAGING ORDERA BLES Final Result documented in this encounter Visit Diagnoses Not on filedocumented in this encounter Care Teams Guest Services Agent Relationship Specialty Start Date End Date Kalani Guillaume MD [address] [place] [address] PCP - General Family Practice 12/31/16 documented as of this encounter
--- OUTSIDE RECORDS SUMMARY | 2025-03-10 16:36 | XMS_ITS | Encounter Summary ---
Author Organization [facility] Address [address] [place] [address] Care Team Providers Care Signs Cleaner Name Role Phone Kalani Guillaume MD Primary Care Provider Encounter Details Date Type Department Care Team (Latest Contact Info) Description 04/01/2004 Outpatient Historical [facility] [address] [place] [id number] Bob Noel MD [address] [place] [address] CERVICALGIA (Primary Dx); BACKACHE NOS; Lumbosacral spondylosis; LUMB/LUMBOSAC DISC DEGEN Social History Tobacco Use Types Packs/Day Years Used Date Smoking Tobacco: Never Assessed Sex and Gender Information Value Date Recorded Sex Assigned at Not on file 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
--- OUTSIDE RECORDS SUMMARY | 2025-03-10 16:36 | XMS_ITS | Encounter Summary ---
Author Organization [facility] Address [address] [place] [address] Care Team Providers Care Customer Care Manager Name Role Phone Kalani Guillaume MD Primary Care Provider [phone] Encounter Details Date Type Department Care Team (Latest Contact Info) Description 08/02/2006 Outpatient Historical [facility] Cardiovascular Services [address] [place] [address] Roger Gimenez MD [address] [facility] [address] [place] [address] Pain in Soft Tissues of Limb (Primary Dx) Social History Tobacco Use Types Packs/Day Years Used Date Smoking Tobacco: Never Assessed Sex and Gender Information Value Date Recorded Sex Assigned at Not on file 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
--- OUTSIDE RECORDS SUMMARY | 2025-03-10 16:36 | XMS_ITS | Encounter Summary ---
Author Organization [facility] Address [address] [place] [address] Care Team Providers Care Wallboard Worker Name Role Phone Kalani Guillaume MD Primary Care Provider [phone] Encounter Details Date Type Department Care Team (Late st Contact Info) Description 04/17/[address] 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 Gender Identity Not on file Sexual Orientation Not on file documented as of this encounter Plan of Treatment Not on file documented as of this encounter Procedures Procedure Name Priority Date/Time Associated Diagnosis Comments COMPREHENSIVE METABOLIC PANEL Stat 04/17/2008 3:58 PM PROPERTY DISPOSAL OFFICER documented in this encounter Results * (ABNORMAL) COMPREHENSIVE METABOLIC PANEL (04/17/2008 3:58 PM PROPERTY DISPOSAL OFFICER) ALBUMIN/GLOBULIN RATIO 1.7 1.0 - 2.3 [facility] TOTAL PROTEIN 6.9 6.3 - 8.2 g/dL [facility] SODIUM 141 136 - 145 mEq/L [facility] BILIRUBIN TOTAL 0.5 0.3 - 1.2 mg/dL [facility] BUN 25(H) 9 - 20 mg/dL [facility] CO2 26 22 - 32 mmol/l [facility] ANION GAP 12 9 - 20 mEq/L [facility] AST 46(H) 8 - 33 U/L [facility] POTASSIUM 4.8 3.5 - 5.0 mEq/L [facility] GLOBULIN (CALC) 2.6 2.4 - 3.9 g/dL [facility] ALBUMIN 4.3 3.5 - 5.0 g/dL [facility] CREATININE 1.5 0.7 - 1.5 mg/dL [facility] ALT 55(H) 4 - 36 IU/L [facility] CALCIUM 9.3 8.4 - 10.5 mg/dL [facility] OSMOLALITY, CALCULATED 296(H) 275 - 295 mOsm/Kg [facility] GLUCOSE 105 70 - 110 mg/dL [facility] ALKALINE PHOSPHATASE 69 25 - 100 U/L [facility] CHLORIDE 108 95 - 110 mEq/L [facility] Blood specimen (specimen) 04/17/2008 3:58 PM PROPERTY DISPOSAL OFFICER 04/17/2008 4:36 PM PROPERTY DISPOSAL OFFICER Raymond Matias MD CHEMISTRY ORDERABLES Final Result Performing Organization Address City/State/[facility] Co de Phone Number INTERFACE SYSTEM Refer to clinic/hospital department [facility] CLIA# [id number] [address] [place] [address] documented in this encounter Visit Diagnoses Not on filedocumented in this encounter Care Teams Wallboard Worker Relationship Specialty Start Date End Date Kalani Guillaume MD [address] [place] [address] PCP - General Family Practice 12/31/16 documented as of this encounter
--- OUTSIDE RECORDS SUMMARY | 2025-03-10 16:36 | XMS_ITS | Encounter Summary ---
Author Organization [facility] Address [address] [place] [address] Care Team Providers Care Tunnel Inspector Name Role Phone Kalani Guillaume MD Primary Care Provider [phone] Encounter Details Date Type Department Care Team (Latest Contact Info) Description 07/02/2006 Outpatient Historical [facility] Cardiac Special Agent In Charge [address] [place] [address] Roger Gimenez MD [address] [facility] [address] [place] [address] Coronary Atherosclerosis of [place] Coronary Artery (Primary Dx) Social History Tobacco Use Types Packs/Day Years Used Date Smoking Tobacco: Never Assessed Sex and Gender Information Value Date Recorded Sex Assigned at Not on file Legal Sex Male 3:37 AM TIER AND DETONATOR Gender Identity Not on file Sexual Orientation Not on file documented as of this encounter Plan of Treatment Not on file documented as of this encounter Procedures Procedure Name Priority Date/Time Associated Diagnosis Comments PT AND APTT Routine 07/02/2006 8:14 AM TIER AND DETONATOR CBC WITHOUT DIFFERENTIAL Routine 07/02/2006 8:14 AM TIER AND DETONATOR BASIC METABOLIC PANEL Routine 07/02/2006 8:14 AM TIER AND DETONATOR documented in this encounter Results * PT AND APTT (07/02/2006 8:14 AM TIER AND DETONATOR) PROTIME 13.6 13.0 - 15.7 Secs [facility] Comment: As of 06 note change in normal range. INR 0.9 [facility] Comment: Expected Values for INR: DVT/PE Goal INR 2.5; range 2.0 - 3.0 Valve Replacement Tissue Goal INR 2.5; range 2.0 - 3.0 Mechanical Goal INR 3.0; range 2.5 - 3.5 POST-TX Goal INR 2.5; range 2.0 - 3.0 or Goal 3.0; range 2.5 - 3.5 Atrial Fibrillation Goal INR 2.5; range 2.0 - 3.0 Ischemic Stroke Goal INR 2.5; range 2.0 - 3.0 For additional information see Guidelines for Anticoagulation available from the pharmacy Man[facility] Tran PTT 26.8 21.6 - 35.6 Secs [facility] Comment: Therapeutic Range: Hi-level PE/DVT heparin protocol 80.1 -95.0 sec Lo-level PE/DVT heparin protocol 67.1 - 80.0 sec Cardiac Heparin Protocol 67.1 - 85.0 sec Neuro Heparin Protocol 67.1 - 80.0 sec As of 05/20/2006 note change in APTT Normal Range. 07/02/2006 8:14 AM TIER AND DETONATOR Roger Gimenez MD HEMATOLOGY ORDERABLES Edited INTERFACE SYSTEM Refer to clinic/hospital department * (ABNORMAL) CBC WITHOUT DIFFERENTIAL (07/02/2006 8:14 AM TIER AND DETONATOR) WBC 3.9(L) 4.8 - 10.8 K/ul [facility] RBC 4.59(L) 4.60 - 6.20 Mil/ul [facility] HEMOGLOBIN 14.6 14.0 - 18.0 g/dL [facility] HEMATOCRIT 44.5 41.0 - 53.0 % [facility] MCV 96.9 84.0 - 103.0 Fl [facility] MCH 31.8 27.0 - 34.0 pg INTER[facility] MCHC 32.8 30.0 - 35.0 g/dL [facility] RDW 13.4 11.0 - 14.5 % INTER[facility] PLATELETS 156 140 - 440 K/ul INTERFACE SYSTEM MPV 9.8 8.9 - 12.8 Fl [facility] NEUTROPHILS 55.5 42.2 - 75.2 % [facility] LYMPHOCYTES 29.3 24.0 - 44.0 % [facility] MONOCYTES 10.4(H) 2.0 - 10.0 % INTERFACE SYSTEM EOSINOPHILS 4.3 0.0 - 7.0 % INTERFACE SYSTEM BASOPHILS 0.5 0.0 - 1.0 % INTERFACE SYSTEM NEUTROPHIL ABSOLUTE 2.2 2.0 - 8.0 K/uL [facility] SYSTEM LYMPHOCYTE ABSOLUTE 1.2 1.2 - 4.0 K/ul INTERFACE SYSTEM MONOCYTE ABSOLUTE 0.4 0.1 - 0.6 K/ul INTERFACE SYSTEM EOSINOPHIL ABSOLUTE 0.2 0.0 - 0.7 K/ul INTERFACE SYSTEM BASOPHILS ABSOLUTE 0.0 0.0 - 0.2 K/ul INTERFACE SYSTEM 07/02/2006 8:14 AM TIER AND DETONATOR Roger Gimenez MD HEMATOLOGY ORDERABLES Edited Performing Organization Address [facility] de Phone Number INTERFACE SYSTEM Refer to clinic/hospital department * (ABNORMAL) BASIC METABOLIC PANEL (07/02/2006 8:14 AM TIER AND DETONATOR) GLUCOSE 112(H) 70 - 110 mg/dL [facility] BUN 26(H) 9 - 20 mg/dL [facility] CREATININE 1.3 0.7 - 1.5 mg/dL [facility] SODIUM 140 136 - 145 mEq/L [facility] POTASSIUM 4.7 3.5 - 5.0 mEq/L [facility] CHLORIDE 107 95 - 110 mEq/L [facility] CO2 28 22 - 32 mmol/l [facility] ANION GAP 10 9 - 20 mEq/L [facility] OSMOLALITY, CALCULATED 295 275 - 295 mOsm/Kg INTER[facility] CALCIUM 9.2 8.4 - 10.5 mg/dL INTERFACE SYSTEM 07/02/2006 8:14 AM TIER AND DETONATOR Roger Gimenez MD CHEMISTRY ORDERABLES Edited Performing Organization Address [facility] de Phone Number INTERFACE SYSTEM Refer to clinic/hospital department documented in this encounter Visit Diagnoses Diagnosis Coronary atherosclerosis of [place] coronary artery- Primary documented in this encounter Care Teams Tunnel Inspector Relationship Specialty Start Date End Date Kalani Guillaume MD [address] [place] [address] PCP - General Family Practice 12/31/16 documented as of this encounter
--- OUTSIDE RECORDS SUMMARY | 2025-03-10 16:36 | XMS_ITS | Encounter Summary ---
Author Organization [facility] Address [address] [place] [address] Care Team Providers Care Dairy Consultant Name Role Phone Kalani Guillaume MD Primary Care Provider Encounter Details Date Type Department Care Team (Latest Contact Info) Description 08/02/2006 Outpatient Historical [facility] [place] [address] [place] [address] Rian Murillo, MANUFACTURING BAKER [address] [place] [address] Coronary Atherosclerosis of [place] Coronary Artery (Primary Dx); Unspecified Chronic Ischemic Heart Disease; Unspecified Peripheral Vascular Disease; Unspecified Essential Hypertension Social History Tobacco Use Types Packs/Day Years Used Date Smoking Tobacco: Never Assessed Sex and Gender Information Value Date Recorded Sex Assigned at Not on file Legal Sex Male 3:37 AM [employer] Gender Identity Not on file Sexual Orientation Not on file documented as of this encounter Plan of Treatment Not on file documented as of this encounter Visit Diagnoses Diagnosis Coronary atherosclerosis of [place] coronary artery- Primary Chronic ischemic heart disease, unspecified Peripheral vascular disease, unspecified Unspecified essential hypertension documented in this encounter Care Teams Dairy Consultant Relationship Specialty Start Date End Date Kalani Guillaume MD [address] [place] [address] PCP - General Family Practice 12/31/16 documented as of this encounter
--- OUTSIDE RECORDS SUMMARY | 2025-03-10 16:36 | XMS_ITS | Patient Health Record ---
Author Organization [facility] Address [address] [place] [address] Care Team Providers Care Master Data Analyst Name Role Phone AundreaRomeroKalani Primary Care Provider UnavailRuddy Parker Unavailable [phone] Migration, Provider Unavailable Unavailable Reynaldo Sweet Unavailable [phone] Serafin Sherwood Unavailable [phone] Tico Khanna Unavailable [phone] Sharona Farris Unavailable [phone] Karen Pineda Unavailable [phone] Allergies Allergen (clinical drug ingredient) Drug/Non Drug Allergy documented on EMR Reaction Allergy Type Onset Date Status Iodine Unknown Drug Allergy Active Adhesive Unknown Allergy Active meperidine Meperidine Unknown Drug Allergy Activ e morphine Morphine Unknown Drug Allergy Active Results Component Value Reference Range Flag Notes US Doppler Scan Arterial LE [id number] (Not yet reviewed by provider) Interpretation: Performing Lab: Notes/Report: [id number]=[id number]&org=iSite Urine Drug Screen (cup read) - [id number] Reviewed date:10/05/2024 12:56:42 PM Interpretation:Negative Performing Lab: Notes/Report: Negative Urine Confirmation Panel (in strument) - [id number] Reviewed date:10/10/2024 11:05:57 AM Interpretation: Performing Lab: Notes/Report: 6-Acetylmorphine 0 <6 ng/mL N This mynor t was developed and its performance characteristics determined by [facility]. It has not been cleared or approved by the U.S. Food and Drug Administration. 7-Aminoclonazepam 0 <60 ng/mL N This te st was developed and its performance characteristics determined by [facility]. It has not been cleared or approved by the U.S. Food and Drug Administration. Alprazolam 0 <60 ng/mL N This test was developed and its performance characteristics determined by [facility]. It has not been cleared or approved by the U.S. Food and Drug Administration. Amphetamine 0 <75 ng/mL N This test was developed and its performance characteristics determined by [facility]. It has not been cleared or approved by the U.S. Food and Drug Administration. aOH-Alprazolam 0 <60 ng/mL N This test was developed and its performance characteristics determined by [facility]. It has not been cleared or approved by the U.S. Food and Drug Administration. Buprenorphine 0.0 <7.5 ng/mL N This test w as developed and its performance characteristics determined by [facility]. It has not been cleared or approved by the U.S. Food and Drug Administration. Norbuprenorphine 0.0 <37.5 ng/mL N This te st was developed and its performance characteristics determined by [facility]. It has not been cleared or approved by the U.S. Food and Drug Administration. Carisoprodol 0 <75 ng/mL N This test wa s developed and its performance characteristics determined by [facility]. It has not been cleared or approved by the U.S. Food and Drug Administration. Codeine 0 <75 ng/mL N This test was developed and its performance characteristics determined by [facility]. It has not been cleared or approved by the U.S. Food and Drug Administration. EDDP 0 <75 ng/mL N This test was developed and its performance characteristics determined by [facility]. It has not been cleared or approved by the U.S. Food and Drug Administration. Fentanyl 0 <6 ng/mL N This test was developed and its performance characteristics determined by [facility]. It has not been cleared or approved by the U.S. Food and Drug Administration. Hydrocodone 203 <75 ng/mL H This test was developed and its performance characteristics determined by [facility]. It has not been cleared or approved by the U.S. Food and Drug Administration. Hydromorphone 75 <75 ng/mL H This test w as developed and its performance characteristics determined by [facility]. It has not been cleared or approved by the U.S. Food and Drug Administration. Lorazepam 0 <60 ng/mL N This test was developed and its performance characteristics determined by [facility]. It has not been cleared or approved by the U.S. Food and Drug Administration. MDMA 0 <75 ng/mL N This test was developed and its performance characteristics determined by [facility]. It has not been cleared or approved by the U.S. Food and Drug Administration. Meperidine 0.0 <37.5 ng/mL N This test was developed and its performance characteristics determined by [facility]. It has not been cleared or approved by the U.S. Food and Drug Administration. Meprobamate 0 <75 ng/mL N This test was developed and its performance characteristics determined by [facility]. It has not been cleared or approved by the U.S. Food and Drug Administration. Methamphetamine 0 <75 ng/mL N This test was developed and its performance characteristics determined by [facility]. It has not been cleared or approved by the U.S. Food and Drug Administration. Methadone 0 <75 ng/mL N This test was developed and its performance characteristics determined by [facility]. It has not been cleared or approved by the U.S. Food and Drug Administration. Morphine 0 <75 ng/mL N This test was developed and its performance characteristics determined by [facility]. It has not been cleared or approved by the U.S. Food and Drug Administration. Nordiazepam 0 <60 ng/mL N This test was developed and its performance characteristics determined by [facility]. It has not been cleared or approved by the U.S. Food and Drug Administration. Norfentanyl 0 <6 ng/mL N This test was developed and its performance characteristics determined by [facility]. It has not been cleared or approved by the U.S. Food and Drug Administration. Normeperidine 0.0 <37.5 ng/mL N This test was developed and its performance characteristics determined by [facility]. It has not been cleared or approved by the U.S. Food and Drug Administration. O-desmethyltramadol 0 <75 ng/mL N This test was developed and its performance characteristics determined by [facility]. It has not been cleared or approved by the U.S. Food and Drug Administration. Oxazepam 0 <60 ng/mL N This test was developed and its performance characteristics determined by [facility]. It has not been cleared or approved by the U.S. Food and Drug Administration. Oxycodone 0.0 <37.5 ng/mL N This test was developed and its performance characteristics determined by [facility]. It has not been cleared or approved by the U.S. Food and Drug Administration. Oxymorphone 0 <75 ng/mL N This test was developed and its performance characteristics determined by [facility]. It has not been cleared or approved by the U.S. Food and Drug Administration. Phencyclidine 0.0 <7.5 ng/mL N This test w as developed and its performance characteristics determined by [facility]. It has not been cleared or approved by the U.S. Food and Drug Administration. Tapentadol 14.7 <37.5 ng/mL N This test was developed and its performance characteristics determined by [facility]. It has not been cleared or approved by the U.S. Food and Drug Administration. Temazepam 10 <60 ng/mL N This test was developed and its performance characteristics determined by [facility]. It has not been cleared or approved by the U.S. Food and Drug Administration. Tramadol 0 <75 ng/mL N This test was developed and its performance characteristics determined by [facility]. It has not been cleared or approved by the U.S. Food and Drug Administration. Norhydrocodone 87 <75 ng/mL H This test was developed and its performance characteristics determined by [facility]. It has not been cleared or approved by the U.S. Food and Drug Administration. Noroxycodone 0 <38 ng/mL N This test wa s developed and its performance characteristics determined by [facility]. It has not been cleared or approved by the U.S. Food and Drug Administration. Pregabalin 0 <225 ng/mL N This test was developed and its performance characteristics determined by [facility]. It has not been cleared or approved by the U.S. Food and Drug Administration. Gabapentin >56198 <225 ng/mL > This test was developed and its performance characteristics determined by [facility]. It has not been cleared or approved by the U.S. Food and Drug Administration. Benzoylecgonine 0.0 <37.5 ng/mL N This mynor t was developed and its performance characteristics determined by [facility]. It has not been cleared or approved by the U.S. Food and Drug Administration. 4-Hydroxy Xylazine 0 <25 ng/mL N This t est was developed and its performance characteristics determined by [facility]. It has not been cleared or approved by the U.S. Food and Drug Administration. Tox Results Reviewed date:08/17/2024 03:02:38 PM Interpretation: Performing Lab: Notes/Report: Urine Confirmation Panel (in strument) - [id number] Reviewed date:10/30/2024 02:45:33 PM Interpretation: Performing Lab: Notes/Report: 6-Acetylmorphine 1 <6 ng/mL N This mynor t was developed and its performance characteristics determined by [facility]. It has not been cleared or approved by the U.S. Food and Drug Administration. 7-Aminoclonazepam 0 <60 ng/mL N This te st was developed and its performance characteristics determined by [facility]. It has not been cleared or approved by the U.S. Food and Drug Administration. Alprazolam 0 <60 ng/mL N This test was developed and its performance characteristics determined by [facility]. It has not been cleared or approved by the U.S. Food and Drug Administration. Amphetamine 0 <75 ng/mL N This test was developed and its performance characteristics determined by [facility]. It has not been cleared or approved by the U.S. Food and Drug Administration. aOH-Alprazolam 0 <60 ng/mL N This test was developed and its performance characteristics determined by [facility]. It has not been cleared or approved by the U.S. Food and Drug Administration. Buprenorphine 1.0 <7.5 ng/mL N This test w as developed and its performance characteristics determined by [facility]. It has not been cleared or approved by the U.S. Food and Drug Administration. Norbuprenorphine 0.0 <37.5 ng/mL N This te st was developed and its performance characteristics determined by [facility]. It has not been cleared or approved by the U.S. Food and Drug Administration. Carisoprodol 0 <75 ng/mL N This test wa s developed and its performance characteristics determined by [facility]. It has not been cleared or approved by the U.S. Food and Drug Administration. Codeine 0 <75 ng/mL N This test was developed and its performance characteristics determined by [facility]. It has not been cleared or approved by the U.S. Food and Drug Administration. EDDP 0 <75 ng/mL N This test was developed and its performance characteristics determined by [facility]. It has not been cleared or approved by the U.S. Food and Drug Administration. Fentanyl 0 <6 ng/mL N This test was developed and its performance characteristics determined by [facility]. It has not been cleared or approved by the U.S. Food and Drug Administration. Hydrocodone 855 <75 ng/mL H This test was developed and its performance characteristics determined by [facility]. It has not been cleared or approved by the U.S. Food and Drug Administration. Hydromorphone 52 <75 ng/mL N This test w as developed and its performance characteristics determined by [facility]. It has not been cleared or approved by the U.S. Food and Drug Administration. Lorazepam 0 <60 ng/mL N This test was developed and its performance characteristics determined by [facility]. It has not been cleared or approved by the U.S. Food and Drug Administration. MDMA 0 <75 ng/mL N This test was developed and its performance characteristics determined by [facility]. It has not been cleared or approved by the U.S. Food and Drug Administration. Meperidine 0.0 <37.5 ng/mL N This test was developed and its performance characteristics determined by [facility]. It has not been cleared or approved by the U.S. Food and Drug Administration. Meprobamate 0 <75 ng/mL N This test was developed and its performance characteristics determined by [facility]. It has not been cleared or approved by the U.S. Food and Drug Administration. Methamphetamine 3 <75 ng/mL N This test was developed and its performance characteristics determined by [facility]. It has not been cleared or approved by the U.S. Food and Drug Administration. Methadone 0 <75 ng/mL N This test was developed and its performance characteristics determined by [facility]. It has not been cleared or approved by the U.S. Food and Drug Administration. Morphine 0 <75 ng/mL N This test was developed and its performance characteristics determined by [facility]. It has not been cleared or approved by the U.S. Food and Drug Administration. Nordiazepam 0 <60 ng/mL N This test was developed and its performance characteristics determined by [facility]. It has not been cleared or approved by the U.S. Food and Drug Administration. Norfentanyl 0 <6 ng/mL N This test was developed and its performance characteristics determined by [facility]. It has not been cleared or approved by the U.S. Food and Drug Administration. Normeperidine 0.0 <37.5 ng/mL N This test was developed and its performance characteristics determined by [facility]. It has not been cleared or approved by the U.S. Food and Drug Administration. O-desmethyltramadol 0 <75 ng/mL N This test was developed and its performance characteristics determined by [facility]. It has not been cleared or approved by the U.S. Food and Drug Administration. Oxazepam 0 <60 ng/mL N This test was developed and its performance characteristics determined by [facility]. It has not been cleared or approved by the U.S. Food and Drug Administration. Oxycodone 0.0 <37.5 ng/mL N This test was developed and its performance characteristics determined by [facility]. It has not been cleared or approved by the U.S. Food and Drug Administration. Oxymorphone 0 <75 ng/mL N This test was developed and its performance characteristics determined by [facility]. It has not been cleared or approved by the U.S. Food and Drug Administration. Phencyclidine 0.0 <7.5 ng/mL N This test w as developed and its performance characteristics determined by [facility]. It has not been cleared or approved by the U.S. Food and Drug Administration. Tapentadol 3.7 <37.5 ng/mL N This test was developed and its performance characteristics determined by [facility]. It has not been cleared or approved by the U.S. Food and Drug Administration. Temazepam 0 <60 ng/mL N This test was developed and its performance characteristics determined by [facility]. It has not been cleared or approved by the U.S. Food and Drug Administration. Tramadol 0 <75 ng/mL N This test was developed and its performance characteristics determined by [facility]. It has not been cleared or approved by the U.S. Food and Drug Administration. Norhydrocodone 1463 <75 ng/mL H This test was developed and its performance characteristics determined by [facility]. It has not been cleared or approved by the U.S. Food and Drug Administration. Noroxycodone 0 <38 ng/mL N This test wa s developed and its performance characteristics determined by [facility]. It has not been cleared or approved by the U.S. Food and Drug Administration. Pregabalin 64 <225 ng/mL N This test was developed and its performance characteristics determined by [facility]. It has not been cleared or approved by the U.S. Food and Drug Administration. Gabapentin >25323 <225 ng/mL > This test was developed and its performance characteristics determined by [facility]. It has not been cleared or approved by the U.S. Food and Drug Administration. Benzoylecgonine 0.0 <37.5 ng/mL N This mynor t was developed and its performance characteristics determined by [facility]. It has not been cleared or approved by the U.S. Food and Drug Administration. 4-Hydroxy Xylazine 0 <25 ng/mL N This t est was developed and its performance characteristics determined by [facility]. It has not been cleared or approved by the U.S. Food and Drug Administration. 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 D-saxmig-l-benzoquinon e imine (NAPQI) is a metabolite of acetaminophen, NAPQI concentrations of apparoximately 10 mg/L correlation to toxic levels of acetaminophen demonstrates a greater than or equil to 10% change in results. NAPQI concentrations greater than this may lead to falsely depressed results for patient samples. GFR N/A NA Calculation pe rformed from GFR calculator provided by the [employer]. Glomerular Filtration rate(GRF) is the best overall index of kidney function. Normal GFR varies according to age,sex, body size, and declines with age. The [employer] recommends using the CKD-EPI Creatinine Equation(2020) to estimate GFR. 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 It has not been cleared or approved by the U.S. Food and Drug Administration. 7-Aminoclonazepam 0 <60 ng/mL N This te st was developed and its performance characteristics determined by [facility]. It has not been cleared or approved by the U.S. Food and Drug Administration. Alprazolam 0 <60 ng/mL N This test was developed and its performance characteristics determined by [facility]. It has not been cleared or approved by the U.S. Food and Drug Administration. Amphetamine 0 <75 ng/mL N This test was developed and its performance characteristics determined by [facility]. It has not been cleared or approved by the U.S. Food and Drug Administration. aOH-Alprazolam 0 <60 ng/mL N This test was developed and its performance characteristics determined by [facility]. It has not been cleared or approved by the U.S. Food and Drug Administration. Buprenorphine 0.0 <7.5 ng/mL N This test w as developed and its performance characteristics determined by [facility]. It has not been cleared or approved by the U.S. Food and Drug Administration. Norbuprenorphine 0.0 <37.5 ng/mL N This te st was developed and its performance characteristics determined by [facility]. It has not been cleared or approved by the U.S. Food and Drug Administration. Carisoprodol 0 <75 ng/mL N This test wa s developed and its performance characteristics determined by [facility]. It has not been cleared or approved by the U.S. Food and Drug Administration. Codeine 0 <75 ng/mL N This test was developed and its performance characteristics determined by [facility]. It has not been cleared or approved by the U.S. Food and Drug Administration. EDDP 0 <75 ng/mL N This test was developed and its performance characteristics determined by [facility]. It has not been cleared or approved by the U.S. Food and Drug Administration. Fentanyl 0 <6 ng/mL N This test was developed and its performance characteristics determined by [facility]. It has not been cleared or approved by the U.S. Food and Drug Administration. Hydrocodone 311 <75 ng/mL H This test was developed and its performance characteristics determined by [facility]. It has not been cleared or approved by the U.S. Food and Drug Administration. Hydromorphone 66 <75 ng/mL N This test w as developed and its performance characteristics determined by [facility]. It has not been cleared or approved by the U.S. Food and Drug Administration. Lorazepam 0 <60 ng/mL N This test was developed and its performance characteristics determined by [facility]. It has not been cleared or approved by the U.S. Food and Drug Administration. MDMA 0 <75 ng/mL N This test was developed and its performance characteristics determined by [facility]. It has not been cleared or approved by the U.S. Food and Drug Administration. Meperidine 0.0 <37.5 ng/mL N This test was developed and its performance characteristics determined by [facility]. It has not been cleared or approved by the U.S. Food and Drug Administration. Meprobamate 0 <75 ng/mL N This test was developed and its performance characteristics determined by [facility]. It has not been cleared or approved by the U.S. Food and Drug Administration. Methamphetamine 0 <75 ng/mL N This test was developed and its performance characteristics determined by [facility]. It has not been cleared or approved by the U.S. Food and Drug Administration. Methadone 0 <75 ng/mL N This test was developed and its performance characteristics determined by [facility]. It has not been cleared or approved by the U.S. Food and Drug Administration. Morphine 0 <75 ng/mL N This test was developed and its performance characteristics determined by [facility]. It has not been cleared or approved by the U.S. Food and Drug Administration. Nordiazepam 0 <60 ng/mL N This test was developed and its performance characteristics determined by [facility]. It has not been cleared or approved by the U.S. Food and Drug Administration. Norfentanyl 0 <6 ng/mL N This test was developed and its performance characteristics determined by [facility]. It has not been cleared or approved by the U.S. Food and Drug Administration. Normeperidine 0.0 <37.5 ng/mL N This test was developed and its performance characteristics determined by [facility]. It has not been cleared or approved by the U.S. Food and Drug Administration. O-desmethyltramadol 0 <75 ng/mL N This test was developed and its performance characteristics determined by [facility]. It has not been cleared or approved by the U.S. Food and Drug Administration. Oxazepam 0 <60 ng/mL N This test was developed and its performance characteristics determined by [facility]. It has not been cleared or approved by the U.S. Food and Drug Administration. Oxycodone 0.0 <37.5 ng/mL N This test was developed and its performance characteristics determined by [facility]. It has not been cleared or approved by the U.S. Food and Drug Administration. Oxymorphone 0 <75 ng/mL N This test was developed and its performance characteristics determined by [facility]. It has not been cleared or approved by the U.S. Food and Drug Administration. Phencyclidine 0.0 <7.5 ng/mL N This test w as developed and its performance characteristics determined by [facility]. It has not been cleared or approved by the U.S. Food and Drug Administration. Tapentadol 0.0 <37.5 ng/mL N This test was developed and its performance characteristics determined by [facility]. It has not been cleared or approved by the U.S. Food and Drug Administration. Temazepam 0 <60 ng/mL N This test was developed and its performance characteristics determined by [facility]. It has not been cleared or approved by the U.S. Food and Drug Administration. Tramadol 4 <75 ng/mL N This test was developed and its performance characteristics determined by [facility]. It has not been cleared or approved by the U.S. Food and Drug Administration. Norhydrocodone 1256 <75 ng/mL H This test was developed and its performance characteristics determined by [facility]. It has not been cleared or approved by the U.S. Food and Drug Administration. Noroxycodone 0 <38 ng/mL N This test wa s developed and its performance characteristics determined by [facility]. It has not been cleared or approved by the U.S. Food and Drug Administration. Pregabalin 0 <225 ng/mL N This test was developed and its performance characteristics determined by [facility]. It has not been cleared or approved by the U.S. Food and Drug Administration. Gabapentin >17011 <225 ng/mL > This test was developed and its performance characteristics determined by [facility]. It has not been cleared or approved by the U.S. Food and Drug Administration. Benzoylecgonine 0.0 <37.5 ng/mL N This mynor t was developed and its performance characteristics determined by [facility]. It has not been cleared or approved by the U.S. Food and Drug Administration. 4-Hydroxy Xylazine 0 <25 ng/mL N This t est was developed and its performance characteristics determined by [facility]. It has not been cleared or approved by the U.S. Food and Drug Administration. Urine Drug Screen (cup read) - [id number] Reviewed date:02/01/2025 01:18:08 PM Interpretation: Performing Lab: Notes/Report: OPI + US Doppler Scan Arterial LE Bilat-[id number] (Not yet reviewed by provider) Interpretation: Performing Lab: Notes/Report: This report was dictated at the [facility] FINAL REPORT Read This report was dictated at the [facility] zzzUrine Drug Screen (confir mation by instrument) - [id number] Reviewed date:06/08/2024 12:07:11 PM Interpretation: Performing Lab: Notes/Report: Schedule Confirmation (Not y et reviewed by provider) Interpretation: Performing Lab: Notes/Report: CTA AFRO w/ + w/o Contrast zzzUrine Drug Screen (confir mation by instrument) - [id number] Reviewed date:08/04/2024 09:29:41 AM Interpretation: Performing Lab: Notes/Report: Tox Results Reviewed date:10/10/2024 02:27:01 PM Interpretation: Performing Lab: Notes/Report: CTA AFRO w/ + w/o Contrast-[id number] (Not yet reviewed by provider) Interpretation: Performing Lab: Notes/Report: See Below For Report CTA AFRO w/ + w/o Contrast Please schedule for 06/08/24 in the AM - to be seen the same day. Please perform with 0.6 mm slices. Patient will need pre and post hydration Read See Below For Report Tox Results Reviewed date:02/06/2025 02:37:29 PM Interpretation: Performing Lab: Notes/Report: Schedule Confirmation (Not y et reviewed by provider) Interpretation: Performing Lab: Notes/Report: CTA AFRO w/ + w/o Contrast Reason For Referral Reason Nature lower extremi ty peripheral vascular disease: Evaluation and treat Diagnosis 1 Peripheral vascular disease (I73.9) Referral Organization [facility] Referring Provider First Name Serafin Referring Provider Last Name Loyda Referring Provider Speciality Orthopedic Surgery Referred Organization [facility] Referred Provider Tico Khanna Referred Address [address] [place] [address] [address],[place], [place],[address], Referred Provider Specialty Vascular Shira ba General Notes Dannielle Posey 07/2023 08:40:40 AM >Appointment with Dr. Doshi on 06/08 Referral Priority Routine Reason peripheral artery di sease - no testing found Diagnosis 1 Peripheral vascular disease (I73.9) Referring Provider First Name SERAFIN Referring Provider Last Name LOYDA Referring Provider Speciality Orthopedic Surgery Referred Organization [facility] Referred Provider Tico Khanna Referred Address [address] [place] [address] [address],[place], [place],[address], Referred Provider Specialty Vascular Shira ba General Notes Janett Ayala 05/05/20 11:34:25 AM >please schedule with Jamie Nowak Lisa 05/05/2024 11:34:50 AM >may need LEAD and/or ABILars sulliavn Brittany M 05/09/2024 04:17:09 PM >Called patient Lars LE Brittany M 05/10/2024 07:57:38 AM >Appointment scheduled on 06.08 @ 2:00 Referral Priority Routine Medications Medication SIG (Take, Route, Frequency, Duration) Notes Start Date End Date Status HYDROcodone-Acetaminophe n 5-325 MG Tablet 1 tablet Orally every 6 hrs; Duration: 30 days As needed Do not exceed 4 per day Fill on 02/08/2025 02/01/2025 5 Active HYDROcodone-Acetaminophe n 5-325 MG Tablet 1 tablet Orally every 6 hrs; Duration: 30 days As needed Do not exceed 4 per day Fill on 03/10/2025 02/01/2025 5 Active Isosorbide Mononitrate *Pick strength-form from [facility] for eRX* Unknown Indomethacin *Pick strength-form from [facility] for eRX* Unknown Hydralazine *Reorder from [facility] for eRx and Interaction Alerts* Unknown Gabapentin *Pick strength-form from [facility] for eRX* Unknown Furosemide *Pick strength-form from [facility] for eRX* Unknown Fluticasone Propionate 50 MCG/ACT Suspension 1 spray in each nostril Nasally Twice a day Unknown NIFEdipine *Pick strength-form from [facility] for eRX* Unknown Metoprolol Succinate *Pick strength-form from [facility] for eRX* Unknown methylPREDNISolone 32 MG Tablet 1 tablet Orally 12 hours before CTA and 2 hours before CTA; Duration: 2 days 05/25/2024 Unknown Cranberry Extract *Pick strength-form from [facility] for eRX* Unknown Lansoprazole *Pick strength-form from [facility] for eRX* Unknown Budesonide-Formoterol Fumarate 160-4.5 MCG/ACT Aerosol 1 puff as needed Inhalation every 4 hrs Unknown Aspirin *Pick strength-form from [facility] for eRX* Unknown Ascorbic Acid 1000 MG Tablet 1 tablet Orally Once a day Unknown Allopurinol 300 MG Tablet 1 tablet Orally Once a day Unknown Albuterol Sulfate *Pick strength-form from [facility] for eRX* Unknown Acetaminophen *Pick strength-form from [facility] for eRX* Unknown sulfaSALAzine *Pick strength-form from [facility] for eRX* Unknown Rosuvastatin *Reorder from [facility] for eRx and Interaction Alerts* Unknown Rivaroxaban 15 MG Tablet 1 tablet with food Orally Once a day Unknown predniSONE 5 MG/ML Concentrate 1 mL Orally Once a day Unknown Potassium Chloride *Pick strength-form from [facility] for eRX* Unknown Nitroglycerin *Pick strength-form from [facility] for eRX* Unknown fexofenadine *Reorder from [facility] for eRx and Interaction Alerts* Unknown Xarelto *[facility]* Unknown Ferrous Sulfate 325 (65 Fe) MG Tablet 1 tablet Orally Three times a Week Unknown Vitamin D3 *[facility]* Unknown Elderberry Immune Health *Reorde r from [facility] for eRx and Interaction Alerts* Unknown Vitamin B Complex *[facility]* Unknown Vitamin A *[facility]* Unknown Tamsulosin HCl 0.4 MG Capsule 1 capsule Orally Once a day Unknown Social History Tobacco Use: Social History Observation Description Date Details (start date - stop date) Former Smoker NA - NA Social History Drugs/Alcohol: Social Info Question Answer Notes Caffeine Intake: 1-2 cups per day Tobacco Use: Social Info Question Answer Notes Tobacco Control (Standard) Tobacco use: Former smoker How long has it been since you last smoked? Greater than 10 years Additional Details Category Social Info Options Details Drugs/Alcohol: Do you smoke marijuana? De nies Do you drink alcohol? WINE EVERY ONCE IN A WHILE Migrated Social History Migrated Social History Alcoholic beverages? - Yes, Currently on disability? - Yes, Drug or substance abuse? - No, If yes, frequency of alcoholic beverages - 1 drink per day, Marital Status - , Nonprescription drug use? - No, Participation in detoxification or rehabilitation - No, Smoking - No, Working currently? - No Section Notes: denies tobacco use denies alcohol use denies tobacco use denies alcohol use denies tobacco use denies alcohol use denies tobacco use denies alcohol use denies tobacco use denies alcohol use denies tobacco use denies alcohol use denies tobacco use denies alcohol use denies tobacco use denies alcohol use Problems Problem Type SNOMED Code ICD Code Onset Dates Problem Status W/U Status Risk Notes Problem Chronic pain syndrome (243069947) Chronic pain syndrome (G89.4) 12/07/19 24 Active confirmed Problem Intermittent claudication of left lower limb co-occurrent and due to atherosclerosis (finding) (10131916078231387 ) Atherosclerosis of [place] band arteries of extremities with intermittent claudication, left leg (I70.212) Active confirmed Problem High risk drug monitoring status (158976941) manager intermediate (current) use of opiate analgesic (Z79.891) Active confirmed Problem Osteoarthritis of right knee joint (538001666437064) Osteoarthritis of right knee, unspecified osteoarthritis type (M17.11) Active confirmed Problem Arthritis of both knees (0838773814422224) Arthritis of both knees (M17.0) Active confirmed Problem Peripheral vascular disease (079017376) Peripheral vascular disease (I73.9) Active confirmed Problem Osteoarthritis of left knee joint (757557522909465) Osteoarthritis of left knee, unspecified osteoarthritis type (M17.12) Active confirmed Problem Abnormal gait (61312525) Abnormality of gait and mobility (R26.9) Active confirmed Vital Signs Heart Rate 91 /min 07/21/2024 Temperature 98.2 degrees Fahrenheit 06/27/2024 Respiratory Rate 18 /min 06/27/2024 Height-cm 175.26 cm 11/29/2024 Oximetry 96 % 07/21/2024 Blood pressure diastolic 80 mm Hg 07/21/2024 Weight-kg 78.93 kg 11/29/2024 Height 69 in 11/29/2024 Blood pressure systolic 142 mm Hg 07/21/2024 Weight 174 lbs 11/29/2024 BMI 25.69 kg/m2 11/29/2024 Encounters Encounter Location Date Provider Diagnosis [facility] [address] [place] [place] [address] 05/24/2024 [facility] [place] [address] [place] [address] 04/13/2024 Karen Pineda [facility] [address] [place] [address] 05/05/2024 Serafin Sherwood Arthritis of both knees M17.0 and Peripheral vascular disease I73.9 [facility] [address] [place] [place] [address] 05/24/2024 Tico Khanna Peripheral vascular disease I73.9 [facility] [address] [place] [address] 05/26/2024 Serafin Sherwood Arthritis of both knees M17.0 and Peripheral vascular disease I73.9 [facility] [place] [address] [place] [address] 05/31/2024 Ruddy Saini Chronic pain syndrom e G89.4 ; 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 ; Osteoarthritis of left knee, unspecified osteoarthritis type M17.12 ; Osteoarthritis of right knee, unspecified osteoarthritis type M17.11 and manager intermediate (current) use of opiate analgesic Z79.891 [facility] [address] [place] [address] 06/27/2024 Tico Khanna Peripheral vascular disease I73.9 [facility] [address] [place] [address] 07/21/2024 Serafin Sherwood Arthritis of both knees M17.0 [facility] [place] [address] [place] [address] 07/26/2024 Ruddy aSini Chronic pain syndrom e G89.4 ; 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 ; Osteoarthritis of right knee, unspecified osteoarthritis type M17.11 ; Osteoarthritis of left knee, unspecified osteoarthritis type M17.12 and [facility] (current) use of opiate analgesic Z79.891 [facility] [place] [address] [place] [address] 10/05/2024 Karen Pineda Chronic pain syndrom e G89.4 ; 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 ; Osteoarthritis of right knee, unspecified osteoarthritis type M17.11 ; Osteoarthritis of left knee, unspecified osteoarthritis type M17.12 and [facility] (current) use of opiate analgesic Z79.891 [facility] [place] [address] [place] [address] 11/29/2024 Ruddy Saini Chronic pain syndrom e G89.4 ; 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 ; Osteoarthritis of right knee, unspecified osteoarthritis type M17.11 ; Osteoarthritis of left knee, unspecified osteoarthritis type M17.12 and [facility] (current) use of opiate analgesic Z79.891 [facility] [place] [address] [place] [address] 02/01/2025 Karen Edwin Chronic pain syndrom e G89.4 ; 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 ; Osteoarthritis of right knee, unspecified osteoarthritis type M17.11 ; Osteoarthritis of left knee, unspecified osteoarthritis type M17.12 and [facility] (current) use of opiate analgesic Z79.891 [facility] 0 0 04/08/2024 Provider Migration [facility] 0 0 04/09/2024 Provider Migration [facility] [address] [place] [place] [address] 05/09/2024 Tico Khanna [facility] [address] [place] [place] [address] 05/25/2024 Tico Khanna Atherosclerosis of [place] band arteries of extremities with intermittent claudication, left leg I70.212 [facility] [place] [address] [place] [address] 06/02/2024 Ruddy Saini [facility] [place] [address] [facility] [address] 2024 Ruddy Saini [facility] [place] [address] [place] [address] 2024 Ruddy Saini Chronic pain syndrom e G89.4 [facility] [address] [place] [place] [address] 06/08/2024 Tico Khanna [facility] [place] [address] [place] [address] 10/05/2024 Ruddy Saini [facility] [place] [address] [place] [address] 02/01/2025 Ruddy Saini Osteoarthritis of right knee, unspecified osteoarthritis type M17.11 Assessments Encounter Date Diagnosis (ICD Code) Assessment Notes Treatment Notes Treatment Clinical Notes Section Notes 05/05/2024 Arthritis of both knees (ICD-10 - M17.0) This man would definitely be helped with total knee arthroplasties. However we cannot do this until we get a vascular evaluation on this individual. I am going to refer him to the [facility] for evaluation. 05/05/2024 Peripheral vascular disease (ICD-10 - I73.9) I am going to refer this individual to Dr. Tico Khanna further evaluation 05/24/2024 Peripheral vascular disease (ICD-10 - I73.9) 83-year-old man with a past medical history of peripheral arterial disease, osteoarthritis and degenerative disc disease. He presents today for evaluation of his arterial insufficiency. He certainly has lower extremity discomfort. It is unclear if this is true rest pain versus neuropathic pain from his degenerative disc disease. Fortunately he does not have any wounds. We proceeded with ABIs today as well as lower extremity arterial duplex to see whether or not he would likely heal knee replacements. Patient had noncompressible vessels on the right and ABIs could not be obtained. On the left his left MAYO was 0.73 which is overall reasonable. However, on arterial duplex patient had evidence of a distal SFA versus popliteal occlusion. He did have reconstitution's of his tibial vessels. On the right patient had evidence of distal SFA and popliteal occlusion. Given his extensive history we will proceed with a CTA abdomen pelvis to further delineate his anatomy. 05/25/2024 Atherosclerosis of [place] band arteries of extremities with intermittent claudication, left leg (ICD-10 - I70.212) 05/26/2024 Arthritis of both knees (ICD-10 - M17.0) This individual continues to have a significant issue with osteoarthritis of either knee. He is undergoing vascular workup at this time. I have had personal conversation with Dr. Mercedes about this this morning. He is scheduled to have a CT angiogram on June 08. We will try and see him a few days after this has been completed. 05/26/2024 Peripheral vascular disease (ICD-10 - I73.9) Continue with vascular workup. 05/31/2024 Chronic pain syndrome (ICD-10 - G89.4) I had a nice visit with the patient and his today regarding his chronic pain issues. He's been working with Dr. Khanna from a vascular standpoint and also Dr. Sherwood. He is undergoing extensive workups and is following up with them in the near future. He says he has not been doing all that great with decreased energy levels but I would suspect this would be more related to a vascular cause. He is tolerating his medications fine so we will continue these unchanged for now and plan to see him back in a couple of months. 05/31/2024 Degeneration of intervertebral disc of lumbar region with discogenic back pain (ICD-10 - M51.360) 2024 Chronic pain syndrome (ICD-10 - G89.4) 06/27/2024 Peripheral vascular disease (ICD-10 - I73.9) 83-year-old man with a past medical history of peripheral arterial disease, osteoarthritis and degenerative disc disease. He presents today for evaluation of his arterial insufficiency. Patient has bilateral lower extremity discomfort. It is unclear if this is definitely from arterial insufficiency. The most likely is related to his knees. He is pending bilateral knee replacement with Dr. Sherwood. I have been seeing him to evaluate whether or not he would be able to heal from a knee replacement. He underwent CTA today. Patient does not have any significant inflow disease on the right. He has evidence of a previous right common femoral endarterectomy. He has extensive calcified plaque along the right distal SFA and popliteal artery. His calcific burden seems prohibitive of an endovascular intervention. Furthermore, a femoral tibial bypass would do little to augment the blood flow around the knee. On the left he has significant amount of calcified plaque, the left common femoral artery and proximal profunda. I explained to him that fixing his inflow on the left may augment his healing potential for a knee replacement on the left. Therefore I have offered a left common femoral endarterectomy. At that time we may be able to do a right lower extremity arteriogram to see if there is anything else that can be done about his blood flow on the right. Patient is not sure if he wants to proceed with surgery given his heart function. 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 Patient will continue to think about surgery and get back to us. 07/21/2024 Arthritis of both knees (ICD-10 - M17.0) Tiffanie has severe primary degenerative arthritis of either knee. He cannot have surgery because of vascular status. I have asked him if he would like to have a cortisone injection and he refuses to do this. We will recheck on appearing basis. This individual is currently seeing Dr. Naylor for pain management and I think this will suffice for his care at this time. 07/26/2024 Chronic pain syndrome (ICD-10 - G89.4) I had a nice visit with the patient today regarding his chronic pain issues. He has seen Dr. Sherwood and Dr. Khanna and it sounds like Dr. Khanna was not overly optimistic about doing surgery for them and Dr. Sherwood was really not comfortable moving forward with the replacement in light of this, so basically at this point he is left with medications. He does get relief with the pain medications but does have days when he is worse so we did provide some additional tablets for the month. We will continue this for the next couple of months and follow up with him thereafter. RECOMMEND URINE TESTING TODAY Urine drug screening will be performed today to monitor compliance with opioid therapy or to serve as a baseline screen for a patient who may be a candidate for opioid therapy in the future, pending UDS results. We will monitor with in-office testing (rapid testing) today and review the results prior to dispensing prescription. All positive results will be sent for quantitative analysis to ensure accuracy and quantify amounts. Any expected positive results that return negative will also be sent for quantitative analysis. Any questionable read or any medication we cannot test for in the office confidently will be sent for quantitative analysis, as well. Patient has been made aware of this policy and agrees to abide by our urine testing policy. The patient continues with chronic pain requiring treatment to help restore function and improve quality of life. Risks of opioid therapy as well as interaction of opioids with alcohol, illicit drugs, muscle relaxers, and other sedative medications are reviewed briefly with patient again today. The patient has trialed all other reasonable treatment options and uses the medication to alleviate pain in order to remain active and rest with less pain. No clinically relevant medication side effects are noted. Last UDS and [place] BATTERY CHARGER TESTER reviewed today. Patient is advised that best long-term goals include increased activity, core strengthening, proper weight management, coping strategies, avoidance of painful triggers, and targeted interventional therapy. We will see the patient for routine follow up in accordance with all clinic policies. We did remind patient today of current guidelines to decrease opioid when possible. We will continue to stress nonopioid treatment. 07/26/2024 Degeneration of intervertebral disc of lumbar region with discogenic back pain (ICD-10 - M51.360) 10/05/2024 Chronic pain syndrome (ICD-10 - G89.4) I had a nice discussion with the patient today regarding his chronic pain complaints. Sounds like surgery is not an option for him due to his health problems. His knees are the worst and he was hoping to be able to have knee surgery. Dr. Saini told him last time medications were pretty much his only option now. He did not realize his quantity of his medication was increased at his last visit so he has not really tried to take any additional medication on his bad days. I did go over this with him today. He does have a large bruise on the back of his left leg behind his knee. There is no warmth or swelling. The patient is on blood thinners. After talking with him he does feel that it was likely due to being on the riding lawnmower yesterday and he states there are a lot of holes in his yard so there was a lot of bouncing. They are going to keep an eye on things and follow-up with her PCP if needed. He denies any other changes since we last seen him or any untoward side effects of the medication. He will continue his medication at present level and return to clinic in 2 months to monitor for treatment effectiveness and compliance. The patient continues with chronic pain requiring treatment to help restore function and improve quality of life. Risks of opioid therapy as well as interaction of opioids with alcohol, illicit drugs, muscle relaxers, and other sedative medications are reviewed briefly with patient again today. The patient has trialed all other reasonable treatment options and uses the medication to alleviate pain in order to remain active and rest with less pain. No clinically relevant medication side effects are noted. Last UDS and AR BATTERY CHARGER TESTER reviewed today. Patient is advised that best long-term goals include increased activity, core strengthening, proper weight management, coping strategies, avoidance of painful triggers, and targeted interventional therapy. We will see the patient for routine follow up in accordance with all clinic policies. We did remind patient today of current guidelines to decrease opioid when possible. We will continue to stress nonopioid treatment. URINE TESTING TODAY; POINT OF SERVICE Urine drug screening will be performed today to monitor compliance with opioid therapy or to serve as a baseline screen for a patient who may be a candidate for opioid therapy in the future, pending UDS results. We will monitor with in-office testing (rapid testing) today and review the results prior to dispensing prescription, as well. Patient has been made aware of this policy. 11/29/2024 Chronic pain syndrome (ICD-10 - G89.4) I had a nice visit with the patient today regarding his chronic pain issues. He continues to maintain reasonably well, he denies any new problems or issues, and the medication remains effective. He is still working in his garden and has been able to get out fishing and do some other activities, which I was pleased to hear. At this point, we will continue his medications unchanged and see him back in a couple of months. 02/01/2025 Chronic pain syndrome (ICD-10 - G89.4) I had a nice discussion with the patient today regarding his chronic pain complaints. He continues with lower back pain as well as bilateral knee pain from arthritis. He feels his medication is working reasonably well but he does try to utilize it as sparingly as possible. He stays very active it sounds like. He likes to work outside a lot doing yard work, gardening, cutting down trees. He denies any other changes in his health since we last seen him or any untoward side effects of the medication. I did discuss lifestyle modifications as well as a bowel regimen. He will continue his medication at present level and return to clinic in 2 months to monitor for treatment effectiveness and compliance. The patient continues with chronic pain requiring treatment to help restore function and improve quality of life. Risks of opioid therapy as well as interaction of opioids with alcohol, illicit drugs, muscle relaxers, and other sedative medications are reviewed briefly with patient again today. The patient has trialed all other reasonable treatment options and uses the medication to alleviate pain in order to remain active and rest with less pain. No clinically relevant medication side effects are noted. Last UDS and AR BATTERY CHARGER TESTER reviewed today. Patient is advised that best long-term goals include increased activity, core strengthening, proper weight management, coping strategies, avoidance of painful triggers, and targeted interventional therapy. We will see the patient for routine follow up in accordance with all clinic policies. We did remind patient today of current guidelines to decrease opioid when possible. We will continue to stress nonopioid treatment. RECOMMEND URINE TESTING TODAY Urine drug screening will be performed today to monitor compliance with opioid therapy or to serve as a baseline screen for a patient who may be a candidate for opioid therapy in the future, pending UDS results. We will monitor with in-office testing (rapid testing) today and review the results prior to dispensing prescription. All positive results will be sent for quantitative analysis to ensure accuracy and quantify amounts. Any expected positive results that return negative will also be sent for quantitative analysis. Any questionable read or any medication we cannot test for in the office confidently will be sent for quantitative analysis, as well. Patient has been made aware of this policy and agrees to abide by our urine testing policy. 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) 07/26/2024 Osteoarthritis of left knee, unspecified osteoarthritis type (ICD-10 - M17.12) 05/31/2024 Osteoarthritis of right knee, unspecified osteoarthritis type (ICD-10 - M17.11) 02/01/2025 Osteoarthritis of right knee, unspecified osteoarthritis type (ICD-10 - M17.11) 11/29/2024 Osteoarthritis of right knee, unspecified osteoarthritis type (ICD-10 - M17.11) 10/05/2024 Osteoarthritis of right knee, unspecified osteoarthritis type (ICD-10 - M17.11) 10/05/2024 Osteoarthritis of left knee, unspecified osteoarthritis type (ICD-10 - M17.12) 11/29/2024 Osteoarthritis of left knee, unspecified osteoarthritis type (ICD-10 - M17.12) 02/01/2025 Osteoarthritis of left knee, unspecified osteoarthritis type (ICD-10 - M17.12) 07/26/2024 manager intermediate (current) use of opiate analgesic (ICD-10 - Z79.891) RECOMMEND URINE TESTING TODAY Urine drug screening will be performed today to monitor compliance with opioid therapy or to serve as a baseline screen for a patient who may be a candidate for opioid therapy in the future, pending UDS results. We will monitor with in-office testing (rapid testing) today and review the results prior to dispensing prescription. All positive results will be sent for quantitative analysis to ensure accuracy and quantify amounts. Any expected positive results that return negative will also be sent for quantitative analysis. Any questionable read or any medication we cannot test for in the office confidently will be sent for quantitative analysis, as well. Patient has been made aware of this policy and agrees to abide by our urine testing policy. 05/31/2024 manager intermediate (current) use of opiate analgesic (ICD-10 - Z79.891) 02/01/2025 manager intermediate (current) use of opiate analgesic (ICD-10 - Z79.891) 11/29/2024 manager intermediate (current) use of opiate analgesic (ICD-10 - Z79.891) 10/05/2024 manager intermediate (current) use of opiate analgesic (ICD-10 - Z79.891) 05/31/2024 Other Todd Martin, iva scribing for Ruddy Saini. Ruddy Martin, personally performed the services described in this documentatio n, as scribed by Todd Pfeiffer, and it is both accurate and complete. 07/26/2024 Todd Shepard am scribing for Dr. Ruddy Saini. I, Dr. Ruddy Saini, personally performed the services described in this documentation, as scribed by Todd Pfeiffer, and it is both accurate and complete. 11/29/2024 Other Sada Martin NCMA, am scribing for Dr. Ruddy Saini. I, Dr. Ruddy Saini, personally performed the services described in this documentation, as scribed by CLIVE Vidales, and it is both accurate and complete. Plan Of Treatment Pending Test Test Name Order Date Blood Urea Nitrogen (BUN) 75515 05/25/20 24 Creatinine (B) 46012 05/25/2024 CTA AFRO w/ + w/o Contrast-02840 025 CTA AFRO w/ + w/o Contrast-26539 024 US Doppler Scan Arterial LE Bilat-[id number] 05/24/2024 US Doppler Scan Arterial LE Bilat-[id number] 05/24/2024 Schedule Confirmation 06/22/2024 Schedule Confirmation 06/27/2024 Schedule Confirmation 06/27/2024 Schedule Confirmation 06/08/2024 Next Appt Details Provider Name:Karen Rosie sadler, 04/05/2025 11:00:00 AM, [address] [place], [address], Insurance Providers Payer Name Payer Address Payer Phone Subscriber Number Group Number Insured Name Patient Relationship to Insured Coverage Start Date Coverage End Date [employer] Medicare Replacement [address] [address] [place] [address] [id number] Juan M Sierra Self - patient is the insured Medical (General) History Medical History History ICD Code measles mumps Chicken Pox Pneumonia Heart Disease Arthritis bladder infections cancer - unspecified hernia osteoporosis Back Trouble High Blood Pressure bronchitis Surgical History Surgery Date(Month/Year) Total hip replacement Pacemaker Heart stents bilateral shoulder surgery Hospitalization History Reason Date(Month/Year) SURGICAL
--- OUTSIDE RECORDS SUMMARY | 2025-03-10 16:36 | XMS_ITS | Encounter Summary ---
Author Organization [facility] Address [address] [place] [address] Care Team Providers Care Supervisor Parking Lot Name Role Phone Kalani Guillaume MD Primary Care Provider [phone] Encounter Details Date Type Department Care Team (Latest Contact Info) Description 06/19/2003 [facility] [address] [place] [address] Jace Lilly MD [address] [place] [phone] PREOP CARDIOVASC EXAM (Primary Dx) Social History Tobacco Use Types Packs/Day Years Used Date Smoking Tobacco: Never Assessed Sex and Gender Information Value Date Recorded Sex Assigned at Not on file 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
--- OUTSIDE RECORDS SUMMARY | 2025-03-10 16:36 | XMS_ITS | Encounter Summary ---
Author Organization [facility] Address [address] [place] [address] Care Team Providers Care Furnace Attendant Name Role Phone Kalani Guillaume MD Primary Care Provider + [phone] Reason for Referral * Radiology Services (Routine) - Closed Specialty Diagnoses / Procedures Referred By Contac t Referred To Contact Radiology Diagnoses Stage 3b chronic kidney disease (CMS/HCC) Procedures US RENAL + DOPPLER US RETROPERITONEAL COMPLETE CHG US, RETROPERITNL ABD, LTD NM DUPLEX ABD/PEL VASC STUDY,LIMITD Darrell Bashir MD [facility] Ultrasound [address] [place] [address] Phone: tel: fax: Referral ID Status Reason Start Date Expiration Date V isits Requested Visits Authorized [id number] Closed F CTS to Schedule 08/09/2020 09/09/2021 1 1 OFF TRUCK DRIVER Encounter Details Date Type Department Care Team (Latest Contact Info) Description 08/09/2020 Ancillary Orders [facility] Pre-Registration [place] CALL TO MAKE APPOINTMENT ONLY [address] [place] [address] Darrell Bashir MD NO ADDRESS ON FILE Stage 3b chronic kidney disease (CMS/HCC) Social History Tobacco Use Types Packs/Day Years Used Date Smoking Tobacco: Former Cigarettes 4 30 1 08/02/1955 - 06/01/1986 Smokeless Tobacco: Never Alcohol Use Standard Drinks/Week Comments Yes 14 (1 standard drink = 0.6 oz pu re alcohol) wine Sex and Gender Information Value Date Recorded Sex Assigned at Not on file 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 No / Unsure 08/06/2020 11:49 AM ROLLOFF TRUCK DRIVER documented as of this encounter Plan of Treatment Not on file documented as of this encounter Results * US RENAL + DOPPLER (08/20/2020 1:17 PM ROLLOFF TRUCK DRIVER) Anatomical Region Laterality Modality Abdomen Ultrasound 08/20/2020 1:17 PM ROLLOFF TRUCK DRIVER Impressions 08/21/2020 11:27 AM ROLLOFF TRUCK DRIVER IMPRESSION: Bilateral renal cortical thinning and bilateral renal cysts. Normal renal Doppler analysis. Narrative 08/21/2020 11:27 AM ROLLOFF TRUCK DRIVER Exam: US RENAL + DOPPLER Date/Time of Exam: 08/20/2020 1:17 PM Reason For Exam: See Diagnosis. Diagnosis: Stage 3b chronic kidney disease. Technique: Real-time color flow, including pulse Doppler waveform analysis. Comparison: None FINDINGS: Kidneys show size asymmetry with the right measuring 9.9 cm and the left 12.6 cm in maximal longitudinal dimension. Bilateral renal cortical thinning. Cortical echogenicity appears within normal limits. Grossly simple appearing bilateral renal cortical cysts, largest on the left measures 4.9 cm. No appreciable solid mass or pyelocaliectasis. Renal Doppler analysis shows normal aortic and main renal artery velocities. Renal to aortic velocity ratios also normal. Intrarenal resistive indices normal and symmetric. Patent bilateral renal veins. Procedure Note Ian Linder, DO - 08/21/2020 Exam: US RENAL + DOPPLER Date/Time of Exam: 08/20/2020 1:17 PM Reason For Exam: See Diagnosis. Diagnosis: Stage 3b chronic kidney disease. Technique: Real-time color flow, including pulse Doppler waveform analysis. Comparison: None FINDINGS: Kidneys show size asymmetry with the right measuring 9.9 cm and the left 12.6 cm in maximal longitudinal dimension. Bilateral renal cortical thinning. Cortical echogenicity appears within normal limits. Grossly simple appearing bilateral renal cortical cysts, largest on the left measures 4.9 cm. No appreciable solid mass or pyelocaliectasis. Renal Doppler analysis shows normal aortic and main renal artery velocities. Renal to aortic velocity ratios also normal. Intrarenal resistive indices normal and symmetric. Patent bilateral renal veins. IMPRESSION: Bilateral renal cortical thinning and bilateral renal cysts. Normal renal Doppler analysis. us Darrell Bashir MD US ORDERABLES Final Result documented in this encounter Visit Diagnoses Diagnosis Stage 3b chronic kidney disease (CMS/HCC) Stage 3b chronic kidney disease (CMS/HCC) documented in this encounter Care Teams Furnace Attendant Relationship Specialty Start Date End Date Kalani Guillaume MD [address] [place] [phone] PCP - General Family Practice 12/31/16 documented as of this encounter
--- OUTSIDE RECORDS SUMMARY | 2025-03-10 16:36 | XMS_ITS | Encounter Summary ---
Author Organization [facility] Address [address] [place] [address] Care Team Providers Care Process Control Tech Name Role Phone Kalani Guillaume MD Primary Care Provider [phone] Encounter Details Date Type Department Care Team (Latest Contact Info) Description 04/01/2004 Outpatient [facility] [address] [place] [address] [place] [address] [phone] Bob Noel MD [address] [place] [address] CERVICAL SPONDYLOSIS (Primary Dx) Social History Tobacco Use Types Packs/Day Years Used Date Smoking Tobacco: Never Assessed Sex and Gender Information Value Date Recorded Sex Assigned at Not on file 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
--- OUTSIDE RECORDS SUMMARY | 2025-03-10 16:36 | XMS_ITS | Encounter Summary ---
Author Organization [facility] Address [address] [place] [address] Care Team Providers Care Brass Wind Instrument Maker Name Role Phone Kalani Guillaume MD Primary Care Provider Encounter Details Date Type Department Care Team (Latest Contact Info) Description 11/28/2003 Outpatient Historical [facility] Jace Lilly MD [address] [place] [phone] DERANG POST MED MENISCUS (Primary Dx) Social History Tobacco Use Types Packs/Day Years Used Date Smoking Tobacco: Never Assessed Sex and Gender Information Value Date Recorded Sex Assigned at Not on file Legal 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
--- OUTSIDE RECORDS SUMMARY | 2025-03-10 16:36 | XMS_ITS | Encounter Summary ---
Author Organization [facility] Address [address] [place] [address] Care Team Providers Care Laundry Pricing Clerk Name Role Phone Kalani Guillaume MD Primary Care Provider [phone] Encounter Details Date Type Department Care Team (Latest Contact Info) Description 07/09/2005 Outpatient Historical [facility] Cardiology- [place] [address] [place] [address] Rain Murillo, BROWNING PROCESSOR [address] [place] [address] CORON ATHEROSCL [place] CORON VESSEL (Primary Dx); HYPERTENSION NOS; MIXED HYPERLIPIDEMIA Social History Tobacco Use Types Packs/Day Years Used Date Smoking Tobacco: Never Assessed Sex and Gender Information Value Date Recorded Sex Assigned at Not on file Legal Sex Male 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
--- OUTSIDE RECORDS SUMMARY | 2025-03-10 16:36 | XMS_ITS | Encounter Summary ---
Author Organization [facility] Address [address] [place] [address] Care Team Providers Care Derrickman Helper Name Role Phone Kalani Guillaume MD Primary Care Provider Encounter Details Date Type Department Care Team (Late st Contact Info) Description 03/06/[address] [facility] [address] [place] [address] [place] [facility] [address] [place] [address] Tg Darby MD [address] 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
--- OUTSIDE RECORDS SUMMARY | 2025-03-10 16:36 | XMS_ITS | Encounter Summary ---
Author Organization [facility] Address [address] [place] [address] Care Team Providers Care Production Supply Equipment Tender Name Role Phone Kaalni Guillaume MD Primary Care Provider Encounter Details Date Type Department Care Team (Latest Contact Info) Description 01/31/2007 Outpatient Historical [facility] Cardiology- [place] [address] [place] [address] Roger Gimenez MD [address] [facility] [address] [place] [address] Unspecified Chronic Ischemic Heart Disease (Primary Dx); Benign Hypertension; Other and Unspecified Angina Pectoris; Other and Unspecified Hyperlipidemia Social History Tobacco Use Types Packs/Day Years Used Date Smoking Tobacco: Never Assessed Sex and Gender Information Value Date Recorded Sex Assigned at Not on file 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
--- OUTSIDE RECORDS SUMMARY | 2025-03-10 16:36 | XMS_ITS | Encounter Summary ---
Author Organization [facility] Address [address] [place] [address] Care Team Providers Care Mental Health Consultant Name Role Phone Kalani Guillaume MD Primary Care Provider Encounter Details Date Type Department Care Team (Latest Contact Info) Description 06/19/2004 Outpatient Historical [facility]- [address] [place] [address] 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 Gender Identity Not on file Sexual Orientation Not on file documented as of this encounter Plan of Treatment Not on file documented as of this encounter Visit Diagnoses Diagnosis Primary localized osteoarthrosis, pelvic region and thigh- Primary Hip joint replacement Hip joint replacement by other means Aftercare joint replacement Aftercare following joint replacement documented in this encounter Care Teams Mental Health Consultant Relationship Specialty Start Date End Date Kalani Guillaume MD [address] [place] [address] PCP - General Family Practice 12/31/16 documented as of this encounter
--- OUTSIDE RECORDS SUMMARY | 2025-03-10 16:36 | XMS_ITS | Encounter Summary ---
Author Organization [facility] Address [address] [place] [address] Care Team Providers Care Heritage Consultant Name Role Phone Kalani Guillaume MD Primary Care Provider Encounter Details Date Type Department Care Team (Latest Contact Info) Description 11/19/2003 Outpatient Historical [facility] Orthopedics- 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
--- OUTSIDE RECORDS SUMMARY | 2025-03-10 16:36 | XMS_ITS | Encounter Summary ---
Author Organization [facility] Address [address] [place] [address] Care Team Providers Care Motorcycle Delivery Driver Name Role Phone Kalani Guillaume MD Primary Care Provider Encounter Details Date Type Department Care Team (Latest Contact Info) Description 04/17/2008 Outpatient Historical [facility] Operating Room [address] [place] [phone] Raymond Matias MD NO ADDRESS ON FILE Unspecified Essential Hypertension; Coronary Atherosclerosis of [place] Coronary Artery; Esophageal Reflux; Hip Joint Replacement by Other Means; Postsurgical Percutaneous Transluminal Coronary Angioplasty Status; Personal History of Allergy to Analgesic Agent; Personal History of Allergy to Other Anti-Infective Agent Social History Tobacco Use Types Packs/Day Years Used Date Smoking Tobacco: Never Assessed Sex and Gender Information Value Date Recorded Sex Assigned at Not on file Legal Sex Male 3:37 AM INTERLOCKING TOWER 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 Gender Identity Not on file Sexual Orientation Not on file documented as of this encounter Plan of Treatment Not on file documented as of this encounter Visit Diagnoses Diagnosis Unspecified essential hypertension Coronary atherosclerosis of [place] coronary artery Esophageal reflux Hip joint replacement by other means Postsurgical percutaneous transluminal coronary angioplasty status Personal history of allergy to analgesic agent Personal history of allergy to other anti-infective agent documented in this encounter Care Teams Motorcycle Delivery Driver Relationship Specialty Start Date End Date Kalani Guillaume MD [address] [place] [address] PCP - General Family Practice 12/31/16 documented as of this encounter
--- OUTSIDE RECORDS SUMMARY | 2025-03-10 16:36 | XMS_ITS | Encounter Summary ---
Author Organization [facility] Address [address] [place] [address] Care Team Providers Care Insole Buffer Name Role Phone Kalani Guillaume MD Primary Care Provider Encounter Details Date Type Department Care Team (Latest Contact Info) Description 02/19/2004 Outpatient Historical [facility] [address] [place] [phone] Bob Noel MD [address] [place] [address] CERVICALGIA (Primary Dx); Cervical spondylosis; BACKACHE NOS; Lumbosacral spondylosis Social History Tobacco Use Types Packs/Day Years Used Date Smoking Tobacco: Never Assessed Sex and Gender Information Value Date Recorded Sex Assigned at Not on file Legal Sex Male 3:37 AM RNP Gender Identity Not on file Sexual Orientation Not on file documented as of this encounter Plan of Treatment Not on file documented as of this encounter Visit Diagnoses Diagnosis Cervicalgia- Primary Cervical spondylosis Cervical spondylosis without myelopathy Backache, unspecified 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
--- OUTSIDE RECORDS SUMMARY | 2025-03-10 16:36 | XMS_ITS | Encounter Summary ---
Author Organization [facility] Address [address] [place] [address] Care Team Providers Care Electrical Contacts Adjuster Name Role Phone Kalani Guillaume MD Primary Care Provider Encounter Details Date Type Department Care Team (Latest Contact Info) Description 02/19/2004 Outpatient [facility] [address] [phone] Bob Noel MD [address] [place] [address] LUMBOSACRAL SPONDYLOSIS (Primary Dx) Social History Tobacco Use Types Packs/Day Years Used Date Smoking Tobacco: Never Assessed Sex and Gender Information Value Date Recorded Sex Assigned at Not on file 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
--- OUTSIDE RECORDS SUMMARY | 2025-03-10 16:36 | XMS_ITS | Encounter Summary ---
Author Organization [facility] Address [address] [place] [address] Care Team Providers Care Residential Case Manager Name Role Phone Kalani Guillaume MD Primary Care Provider Encounter Details Date Type Department Care Team (Latest Contact Info) Description 08/02/2006 Outpatient Historical [facility] Cardiology [facility] [address] [place] [address] Dayo Simms MD [address] [facility] [address] [place] [address] Other and Unspecified Angina Pectoris (Primary Dx); Coronary Atherosclerosis of [place] Coronary Artery Social History Tobacco Use Types Packs/Day Years Used Date Smoking Tobacco: Never Assessed Sex and Gender Information Value Date Recorded Sex Assigned at Not on file 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
--- OUTSIDE RECORDS SUMMARY | 2025-03-10 16:36 | XMS_ITS | Encounter Summary ---
Author Organization [facility] Address [address] [place] [address] Care Team Providers Care Production Broaching Machine Operator Name Role Phone Kalani Guillaume MD Primary Care Provider Encounter Details Date Type Department Care Team (Latest Contact Info) Description 12/06/2003 Outpatient Historical [facility] Orthopedics- [address] [place] 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
--- OUTSIDE RECORDS SUMMARY | 2025-03-10 16:37 | XMS_ITS | Patient Health Record ---
Author Organization [facility] Address [address] [place] [address] Care Team Providers Care Partnership Development Manager Name Role Phone Kalani Guillaume Primary Care Provider UnavailNUZHAT Padilla Unavailable [phone] TONIETERI FINCH Unavailable [phone] Chiki Bennett Unavailable [phone] Allergies Allergen (clinical drug ingredient) Drug/Non Drug Allergy documented on EMR Reaction Allergy Type Onset Date Status Adhesive Unknown Allergy Active Iodine Unknown Drug Allergy Active meperidine Meperidine Unknown Drug Allergy Activ e morphine Morphine Unknown Drug Allergy Active Results Component Value Reference Range Notes Urinalysis, Routine Reviewed date:03/21/2024 01:22:31 PM Interpretation: Performing Lab: Notes/Report: Urine-Color yellow Appearance clear Glucose - Bilirubin - Ketones - Specific [place] 1.015 Occult Blood - pH 6.0 Urine Protein - Urobilinogen,Semi-Qn - Nitrite, Urine - WBC Esterase - Urinalysis Gross Exam - Reason For Referral No Information Medications Medication SIG (Take, Route, Frequency, Duration) Notes Start Date End Date Status Nitroglycerin 0.4 MG as directed Sublingual Active NIFEdipine 20 MG 1 capsule as needed Orally every 8 hrs Active Metoprolol Succinate 25 MG 1 capsule Orally Once a day Active Isosorbide Mononitrate 20 MG 1 tablet Orally Twice a day Active Rosuvastatin Calcium 20 MG 1 tablet Orally Once a day Active Ascorbic Acid 1000 MG 1 tablet Orally On ce a day Active Rivaroxaban 15 MG 1 tablet with food Orally Once a day Active Allopurinol 300 MG 1 tablet Orally Once a day Active predniSONE 5 MG 1 tablet Orally Once a day Active Albuterol Sulfate 108 (90 Base) MCG/ACT 1 puff as needed Inhalation every 4 hrs Active Potassium Chloride 20 MEQ/100ML as directed Intravenous Active Acetaminophen 500 MG 1 tablet as needed Orally every 6 hrs Active Elderberry 500 MG as directed Orally Active Cranberry Extract 250 MG as directed Orally Active Tamsulosin HCl 0.4 MG 1 capsule Orally O nce a day Active Budesonide-Formoterol Fumarate 160-4.5 MCG/ACT 1 puff as needed Inhalation every 4 hrs Active sulfaSALAzine 500 MG 1 tablet Orally Onc e a day Active Aspirin 81 81 MG 1 tablet Orally Once a day Active Fexofenadine HCl 60 MG 1 tablet Orally T wice a day Active Ferrous Sulfate 325 (65 Fe) MG 1 tablet Orally Three times a Week Active Gabapentin 300 MG 1 capsule Orally Onc e a day Active Furosemide 40 MG 1 tablet Orally Once a day Active Fluticasone Propionate HFA 110 MCG/ACT 2 puffs Inhalation Twice a day Active Indomethacin 25 MG 1 capsule with food or milk Orally Twice a day Active HYDROcodone-Acetaminoph en 5-325 MG 1 tablet as needed Orally every 6 hrs Active hydrALAZINE HCl 10 MG 1 tablet with food Orally Four times a day 25mg 3 x a day Active Finasteride 5 MG Take 1 tablet by mouth once daily; Duration: 90 Active Social History Tobacco Use: Social History Observation Description Date Details (start date - stop date) Former Smoker NA - NA Tobacco Control (Standard) Question Answer Notes Tobacco use: Former smoker Problems Problem Type SNOMED Code ICD Code Onset Dates Problem Status W/U Status Risk Notes Problem Benign prostatic hyperplasia (163172517) BPH (benign prostatic hyperplasia) (N40.0) Active confirmed Problem 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 Problem Benign prostatic hypertrophy with outflow obstruction (698915087) BPH loc w urin obs/LUTS (N40.1) Active confirmed Vital Signs Heart Rate 84 /min 09/20/2024 Blood pressure diastolic 83 mm Hg 09/20/2024 Height-cm 160.02 cm 09/20/2024 Weight-kg 74.84 kg 09/20/2024 Height 63 in 09/20/2024 Blood pressure systolic 148 mm Hg 09/20/2024 Weight 165 lbs 09/20/2024 BMI 29.23 kg/m2 09/20/2024 Procedures Procedure Date Ordered Date Performed Result Body Sit e Bladder Scan 03/21/2024 03/21/2024 N/A UroFlow 09/20/2024 N/A Bladder Scan 09/20/2024 09/20/2024 N/A Encounters Encounter Location Date Provider Diagnosis [facility], [facility] [address] [place] [address] 03/21/2024 TERI SCHILLING BPH loc w urin obs/LUTS N40.1 ; Weak urine stream R39.12 ; Urinary frequency R35.0 ; Urinary urgency R39.15 and Nocturia R35.1 [facility], [facility] [address] [place] [address] 09/20/2024 Chiki Bennett Weak urine stream R39.12 ; BPH loc w urin obs/LUTS N40.1 ; Urinary frequency R35.0 ; Urinary urgency R39.15 and Nocturia R35.1 [facility] [employer], [facility] [address] [place] [address] 03/13/2024 NUZHAT CEDEÑO Assessments Encounter Date Diagnosis (ICD Code) Assessment Notes Treatment Notes Treatment Clinical Notes Section Notes 09/20/2024 Weak urine stream (ICD-10 - R39.12) Reviewed todays Uroflow: Peak effect at 9.9 ml/s with voided volume of 212 ml. PVR of 57cc. Patient is emptying well with improved LUTS while on flomax and finasteride for maximum medical management and would like to continue. However, We discussed the concept of maximal medical management of BPH as well as possible treatment with a transurethral procedure if worsening symptoms, and may consider further workup in the future. We will continue conservatively with MMM for his urinary complaints. Refill as needed. At this time, he is currently not in urinary retention. No complaints of pain. Will schedule for 6 months unless worsening symptoms with noninvasive urodynamics with IPSS. For now and through shared decision making, we are in agreement of no need for further workup. He has a previous normal PSA, and understands the need for continued surveillance. All questions that were asked, were answered. Patient satisfied with plan. 03/21/2024 Weak urine stream (ICD-10 - R39.12) 03/21/2024 BPH loc w urin obs/LUTS (ICD-10 - N40.1) 03/21/2024 Urinary frequency (ICD-10 - R35.0) 09/20/2024 BPH loc w urin obs/LUTS (ICD-10 - N40.1) Reviewed todays Uroflow: Peak effect at 9.9 ml/s with voided volume of 212 ml. PVR of 57cc. Patient is emptying well with improved LUTS while on flomax and finasteride for maximum medical management and would like to continue. However, We discussed the concept of maximal medical management of BPH as well as possible treatment with a transurethral procedure if worsening symptoms, and may consider further workup in the future. We will continue conservatively with MMM for his urinary complaints. Refill as needed. At this time, he is currently not in urinary retention. No complaints of pain. Will schedule for 6 months unless worsening symptoms with noninvasive urodynamics with IPSS. For now and through shared decision making, we are in agreement of no need for further workup. He has a previous normal PSA, and understands the need for continued surveillance. All questions that were asked, were answered. Patient satisfied with plan. 09/20/2024 Urinary frequency (ICD-10 - R35.0) Reviewed todays Uroflow: Peak effect at 9.9 ml/s with voided volume of 212 ml. PVR of 57cc. Patient is emptying well with improved LUTS while on flomax and finasteride for maximum medical management and would like to continue. However, We discussed the concept of maximal medical management of BPH as well as possible treatment with a transurethral procedure if worsening symptoms, and may consider further workup in the future. We will continue conservatively with MMM for his urinary complaints. Refill as needed. At this time, he is currently not in urinary retention. No complaints of pain. Will schedule for 6 months unless worsening symptoms with noninvasive urodynamics with IPSS. For now and through shared decision making, we are in agreement of no need for further workup. He has a previous normal PSA, and understands the need for continued surveillance. All questions that were asked, were answered. Patient satisfied with plan. 03/21/2024 Urinary urgency (ICD-10 - R39.15) 09/20/2024 Urinary urgency (ICD-10 - R39.15) Reviewed todays Uroflow: Peak effect at 9.9 ml/s with voided volume of 212 ml. PVR of 57cc. Patient is emptying well with improved LUTS while on flomax and finasteride for maximum medical management and would like to continue. However, We discussed the concept of maximal medical management of BPH as well as possible treatment with a transurethral procedure if worsening symptoms, and may consider further workup in the future. We will continue conservatively with MMM for his urinary complaints. Refill as needed. At this time, he is currently not in urinary retention. No complaints of pain. Will schedule for 6 months unless worsening symptoms with noninvasive urodynamics with IPSS. For now and through shared decision making, we are in agreement of no need for further workup. He has a previous normal PSA, and understands the need for continued surveillance. All questions that were asked, were answered. Patient satisfied with plan. 03/21/2024 Nocturia (ICD-10 - R35.1) 09/20/2024 Nocturia (ICD-10 - R35.1) Reviewed todays Uroflow: Peak effect at 9.9 ml/s with voided volume of 212 ml. PVR of 57cc. Patient is emptying well with improved LUTS while on flomax and finasteride for maximum medical management and would like to continue. However, We discussed the concept of maximal medical management of BPH as well as possible treatment with a transurethral procedure if worsening symptoms, and may consider further workup in the future. We will continue conservatively with MMM for his urinary complaints. Refill as needed. At this time, he is currently not in urinary retention. No complaints of pain. Will schedule for 6 months unless worsening symptoms with noninvasive urodynamics with IPSS. For now and through shared decision making, we are in agreement of no need for further workup. He has a previous normal PSA, and understands the need for continued surveillance. All questions that were asked, were answered. Patient satisfied with plan. 03/21/2024 Other Pt with worsening LUTS on high dose tamsulosin. We discussed the concept of maximal medical management of BPH by adding finasteride versus surgical escalation of care with possible transurethral procedure. Pros and cons of each reviewed. He would like to startconservatively by adding Proscar to Flomax for maximum medical management. Dosing and SE reviewed. Prescription sent to pharmacy. He will then return in 4-6 months at peak effect of Proscar for noninvasive urodynamics. Pt reports normal prostate cancer screening in the past by Dr. Hernandez. Unsure of most recent PSA. 09/20/2024 Other Reviewed todays Uroflow: Peak effect at 9.9 ml/s with voided volume of 212 ml. PVR of 57cc. Patient is emptying well with improved LUTS while on flomax and finasteride for maximum medical management and would like to continue. However, We discussed the concept of maximal medical management of BPH as well as possible treatment with a transurethral procedure if worsening symptoms, and may consider further workup in the future. We will continue conservatively with MMM for his urinary complaints. Refill as needed. At this time, he is currently not in urinary retention. No complaints of pain. Will schedule for 6 months unless worsening symptoms with noninvasive urodynamics with IPSS. For now and through shared decision making, we are in agreement of no need for further workup. He has a previous normal PSA, and understands the need for continued surveillance. All questions that were asked, were answered. Patient satisfied with plan. Plan Of Treatment Pending Test Test Name Order Date UroFlow 09/20/2024 Next Appt Details Provider Name:Chiki Bennett, 03/27/2025 02:00:00 PM, [address] [place], [address], Insurance Providers Payer Name Payer Address Payer Phone Subscriber Number Group Number Insured Name Patient Relationship to Insured Coverage Start Date Coverage End Date [employer] Medicare Replacement [address] [address] [place], [place] [id number] Juan M Mabry Self - patient is the insured Medical (General) History Medical History History ICD Code Osteoarthritis Rheumatoid arthritis Coronary artery disease Degenerative disc disease Heart disease Hyperlipidemia Hypertension COPD Back pain Dysuria Kidney disease BPH Surgical History Surgery Date(Month/Year) Cardiac stents 2004 Hip surgery 2004 Bilateral shoulder replacement 2016
[2025-03-10 16:41] VITALS: BP 150/78; PULSE 76; RESP 17; TEMP 38.1; O2SAT 96; BMI 24.3
--- NOTE | 2025-03-10 16:50 | XRR_ITS ---
PROCEDURE INFORMATION: Exam: XR Chest Exam date and time: 03/10/2025 5:19 PM Age: 84 years old Clinical indication: Fever; Prior surgery; Surgery date: 6+ months; Surgery type: Bilat shoulders/pacemaker; Additional info: Head/neck/upper back pain post fall TECHNIQUE: Imaging protocol: Radiologic exam of the chest. Views: 1 view. COMPARISON: CT chest con [id number] 10/13/2023 4:03 PM FINDINGS: Tubes, catheters and devices: Left ICD with leads intact. Lungs: Hazy opacity in the right upper lung zone possibly reflective of a infectious etiology. The lungs are otherwise clear. Pleural spaces: No pleural effusion. Heart/Mediastinum: Unremarkable. No cardiomegaly. Bones/joints: Bilateral humeral head arthroplasties with decreased bilateral acromial humeral interval. XR/XR chest 1V portable [id number] IMPRESSION: Hazy opacity in the right upper lung zone possibly reflective of a infectious etiology. The lungs are otherwise clear.
--- NOTE | 2025-03-10 16:50 | W.ED.FALL ---
Documented by User: DEMOND Soares 03/10/25 19:02 HPI - Fall General: Chief Complaint: Fall Stated Complaint: fall(head,neck,shoulder pain) eyes hurt Time Seen by Provider: 03/10/25 16:38 Source: patient Mode of arrival: ambulatory Limitations: no limitations History of Present Illness: Patient is an 84-year-old male who presents to ED today along with his significant other with a main concern of a headache. Significant other states he fell approximately 5 to 6 days ago backwards and struck his head. He is on anticoagulation. Patient states he never got seen following this. He states he has slowly developed a headache. Significant other is concerned about a concussion. He has had some neck pain and shoulder pain . He has been using the shoulders normally and significant other states he has been very active over the past week. He is not complaining of back pain or abdominal pain. He has no chest pain or palpitations or difficulty breathing. He does arrive with a low-grade temp of 100.6-unaware of this until arrival. MD complaint: fall Onset (ago): day(s) Fall from: standing Fall witnessed: yes, by family Place fall occurred: home Loss of consciousness: None Prolonged down time: no Symptoms prior to fall: none Context: tripped/slipped Location of injury: head and neck Associated symptoms-after fall: Reports no associated symptoms, headache(s) and neck pain; Denies abdominal pain, chest pain, difficulty walking, hematuria or lightheadedness Related Data Home Medications ?Medication ?Instructions ?Recorded ?Confirmed aspirin 81 mg tablet,delayed 81 mg PO DAILY 04/23/20 02/07/25 release nitroglycerin 0.4 mg sublingual 0.4 mg sublingual Q5M PRN Chest 04/23/20 02/07/25 tablet (Nitrostat) Pain rosuvastatin 20 mg tablet 20 mg PO DAILY 04/23/20 02/07/25 tamsulosin 0.4 mg capsule 0.4 mg PO DAILY 04/23/20 02/07/25 vitamin B complex 1 tab PO BID 04/23/20 02/07/25 calcium 333 mg-vit D3 200 1 tab PO DAILY 05/12/21 02/07/25 unit-magnesium 133 mg-zinc 5 mg tablet ascorbic acid (vitamin C) 500 mg 250 mg PO BID 08/04/21 02/07/25 tablet (Vitamin C) cranberry fruit 400 mg capsule 400 mg PO DAILY 08/04/21 02/07/25 elderberry fruit 460 mg-elderberry 1 cap PO BID 08/04/21 02/07/25 flower 115 mg capsule fexofenadine 60 mg tablet 60 mg PO BID 08/04/21 02/07/25 lansoprazole 15 mg capsule,delayed 15 mg PO DAILY 08/04/21 02/07/25 release (Prevacid 24Hr) acetaminophen 500 mg tablet 1,000 mg PO Q6H PRN Pain, Moderate 01/02/22 02/07/25 nifedipine 30 mg tablet,extended 30 mg PO DAILY 01/02/22 02/07/25 release 24 hr cholecalciferol (vitamin D3) 25 50 mcg PO BID 05/13/23 02/07/25 mcg (1,000 unit) chewable tablet (Vitamin D3) coenzyme Q10 10 mg capsule (Co 10 mg PO DAILY 05/13/23 02/07/25 Q-10) garlic 100 mg tablet 200 mg PO BID 05/13/23 02/07/25 indomethacin 25 mg capsule 25 mg PO TID PRN GOUT 05/13/23 02/07/25 metoprolol succinate 25 mg 25 mg PO DAILY 05/13/23 02/07/25 tablet,extended release 24 hr rivaroxaban 15 mg tablet (Xarelto) 15 mg PO DAILY 05/13/23 02/07/25 furosemide 40 mg tablet 40 mg PO BID 09/08/23 02/07/25 finasteride 5 mg tablet mg PO 02/07/25 02/07/25 hydralazine 25 mg tablet mg PO 02/07/25 02/07/25 isosorbide mononitrate 30 mg mg PO 02/07/25 02/07/25 tablet,extended release 24 hr potassium chloride 20 mEq meq PO 02/07/25 02/07/25 tablet,extended release(part/cryst) (Klor-Con M) Previous Rx's ?Medication ?Instructions ?Recorded Symbicort 160 mcg-4.5 See Rx Instructions .Route 10/01/22 mcg/actuation HFA aerosol inhaler .COMPLEX #11 grams (budesonide-formoterol) fluticasone propionate 50 1 spray intranasal BID PRN allergy 08/04/23 mcg/actuation nasal symptoms #16 grams spray,suspension (Flonase Allergy Relief) ferrous sulfate 324 mg (65 mg 324 mg PO DAILY #30 tabs 08/18/23 iron) tablet,delayed release cyanocobalamin (vitamin B-12) 1,000 mcg sublingual DAILY #30 tabs 09/06/23 1,000 mcg sublingual tablet tiotropium bromide 1.25 2 puff inhalation DAILY #4 grams 09/08/23 mcg/actuation mist for inhalation (Spiriva Respimat) mecobalamin (vitamin B12) 1,000 1,000 mcg sublingual DAILY #30 tabs 11/18/23 mcg disintegrating tablet,sublingual hydrocodone 5 mg-acetaminophen 325 1 tab PO QID PRN pain 30 days #120 11/24/23 mg tablet tabs albuterol sulfate 90 mcg/actuation 2 puff inhalation QID PRN 12/31/23 aerosol inhaler shortness of breath or wheezing 30 days #18 grams gabapentin 300 mg capsule 300 mg PO DAILY #90 caps 11/14/24 prednisone 5 mg tablet 5 mg PO DAILY #90 tabs 11/14/24 sulfasalazine 500 mg tablet 0.5 g PO BID #180 tabs 02/08/25 (Azulfidine) Allergies Allergy/AdvReac Type Severity Reaction Status Date / Time 2-octyl cyanoacrylate Allergy ALGY-Rash Verified 02/07/25 12:57 iodine Allergy ALGY-Bliste Verified 02/07/25 12:57 r meperidine Allergy ALGY-Hives Verified 02/07/25 12:57 morphine Allergy ALGY-Rash Verified 02/07/25 12:57 povidone-iodine (From Allergy Unknown Verified 02/07/25 12:57 Betadine) soap (From Betadine) Allergy Unknown Verified 02/07/25 12:57 dermabond AdvReac Intermediate adr-blister Uncoded 02/07/25 12:57 s Review of Systems Const: Reports: fever(s) (noticed upon arrival) ENMT: Denies: throat pain, odynophagia, nasal discharge, nasal congestion or sinus pain Card: Denies: chest pain, palpitations, irregular heart rhythm, edema, lightheadedness, syncope or pre-syncope Resp: Denies: dyspnea, pain on inspiration or chest congestion GI: Denies: abdominal pain : Denies: flank pain, dysuria or hematuria Musc: Reports: neck pain and joint pain (shoulder pain); Denies: back pain, extremity pain, extremity swelling, joint swelling or joint redness Neuro: Reports: headache(s); Denies: numbness in extremities, weakness in extremities, sensory changes or difficulty walking PFS ED PFSH: Medical History Immunization counseling High risk medication use 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 CHF (congestive heart failure) Peripheral vascular disease CKD (chronic kidney disease) Pneumonia due to COVID-19 virus Surgical History S/P peripheral artery angioplasty with stent placement 2015 History of colonoscopy History of coronary angioplasty with insertion of stent 2003 S/P laparoscopic-assisted sigmoidectomy (08/06/21) H/O shoulder replacement History of right hip replacement Family History Sister Cancer Hyperlipidemia Hypertension Rheumatoid arthritis Mother Hyperlipidemia Hypertension Rheumatoid arthritis Father Hyperlipidemia Hypertension Stroke Rheumatoid arthritis Brother Hyperlipidemia Hypertension Heart attack Rheumatoid arthritis Denies family history of Diabetes Lupus Social History Smoking and tobacco/nicotine status: unknown if used tobacco/nicotine Quit status (tobacco/nicotine): has quit using Year quit tobacco: 1987 - PPD x 30 Years Second hand smoke exposure: No Alcohol intake: current Alcohol intake frequency: few times a week Alcohol type: wine Substance/Drug Use: never Lives independently: Yes Household members: spouse Marital status: service: Yes Current occupational status: retired Do you think of yourself as: Straight/Heterosexual Current gender identity: Male Physical Exam Const: COMMON NORMALS: no acute distress, average body habitus, patient oriented x3, no limitations, healthy appearing, alert and well nourished GENERAL APPEARANCE: cooperative ORIENTATION/CONSCIOUSNESS: Yes awake, Yes oriented to person, Yes oriented to place and Yes oriented to time HENMT: COMMON NORMALS: normocephalic, atraumatic and TM's normal bilaterally HEAD & SCALP: normal to inspection, normocephalic and atraumatic; no Nuñez's sign, no hematoma and no raccoon eyes FACE & SINUS: normal facial exam and face symmetric TYMPANIC MEMBRANE: TM's normal bilaterally MOUTH: other (no intraoral injuries noted) Eye: COMMON NORMALS: Equal, round and reactive pupils present and EOMs intact bilaterally GENERAL EYE: appearance normal, both eyes and all related structures and normal light reflex PUPIL: Yes Equal, round and reactive pupils present DIRECT OPHTHALMOSCOPY: Yes normal light reflex Neck/C-Spine: COMMON NORMALS: full ROM GENERAL: Yes normal visual inspection CERVICAL SPINE: Yes cervical ROM normal, Yes pain with cervical ROM, Yes Cervical spine tenderness, No step off deformity and No Paracervical muscle tenderness Chest: COMMONS NORMALS: normal inspection of the chest and normal palpation of entire chest wall Resp: COMMON NORMALS: normal respiratory effort and clear to auscultation bilaterally AUSCULTATION: clear to auscultation bilaterally Cardio: COMMON NORMALS: regular rate and regular rhythm RATE: regular rate RHYTHM: regular rhythm GI: COMMON NORMALS: Normal to inspection, nondistended, normoactive bowel sounds present, Soft to palpation, non-tender, No hepatosplenomegaly present and no masses INSPECTION: Yes normal to inspection and No abdominal wall ecchymosis AUSCULTATION: Yes normoactive bowel sounds PALPATION: Yes Soft to palpation and Yes No hepatosplenomegaly present Back/Pelvis: COMMON NORMALS: thoracic and lumbar spine normal to inspection, no thoracic nor lumbar tenderness and thoraco-lumbar ROM normal Extremity: COMMON NORMALS: normal to inspection and full ROM GENERAL: Yes normal exam except as noted OTHER: full seemingly painless ROM of bilateral shoulders Neuro: JESUS COMA SCALE: document GCS findings Jesus coma scale eye opening: Spontaneous [place] coma scale verbal response: Orientated Jesus coma scale motor response: Obey commands [place] coma scale total score: 15 COMMON NORMALS: patient oriented x3, CN's II-XII intact bilaterally, moves all extremities, no focal motor deficits and no sensory deficits noted SENSORIUM/ORIENTATION: Yes alert, Yes oriented to person, Yes oriented to place and Yes oriented to time SPEECH: speech normal GAIT: Yes Normal gait present MOTOR EXAM: 5/5 motor strength present throughout Skin: COMMON NORMALS: no rashes or lesions noted GENERAL SKIN EXAM: no rashes or lesions noted TRAUMA: no lacerations or abrasions Course Consultations: Consultation #1: [facility] transfer line spoke to Dr. Chong, neurosurgery and we had CT scans uploaded-he is recommending reveral of Xarelto and ER to ER transfer; [facility] transfer line spoke to Dr. Alicea who will be the ER accepting physician Vital Signs: Vital signs: Vital Signs Temperature 100.6 F H 03/10/25 16:41 Pulse Rate 71 03/10/25 19:00 Respiratory Rate 16 03/10/25 19:00 Blood Pressure 149/66 03/10/25 19:00 Pulse Oximetry 95 03/10/25 19:00 Oxygen Delivery Me thod Room Air 03/10/25 19:00 MDM - Fall Medical Decision Making Patient is an 84-year-old male who presents to ED today following a fall several days ago where he fell backwards and struck his head. He is on Xarelto. He felt like he was doing okay following the fall until today when he felt like his headache worsened. He was found to have a left-sided subdural hematoma. Blood pressures are stable. CT cervical spine unremarkable. He did have a low-grade fever upon arrival. Refused COVID/RSV/influenza testing. Patient's blood work showing a normal white count. He has chronic stable anemia. UA is clear. BUN/Cr are at baseline. CXR with possible R upper pneumonia-pend official read. Dr. Chong at [facility] neurosurgery recommending AndexXa. His last dose of Xarelto was yesterday evening and he took 15mg. Spoke to Dr. Mercedes and we will administer a 400mg bolus here prior to transfer. Patient will go ED to ED with Dr. Alicea as ED admitting physician. Differential Diagnosis Likely dislocation of shoulder region, concussion with loss of consciousness and concussion without loss of consciousness Medical Records I reviewed the patient's medical records. Lab Data I reviewed the patient's lab results. 03/10/25 17:02 03/10/25 17:02 Radiology Impressions Cervical Spine CT 03/10/25 16:31 IMPRESSION: 1. No acute osseous findings in the cervical spine. 2. Advanced multilevel cervical spondylosis. Head CT 03/10/25 16:31 IMPRESSION: 1. Small acute left subdural hematoma overlying the cerebral convexity. Possible trace rightward midline shift of about 1 mm. 2. Paranasal sinus disease. THIS REPORT CONTAINS FINDINGS THAT MAY BE CRITICAL TO PATIENT CARE. The findings were verbally communicated via telephone conference with DEMOND MARRERO at 5:52 PM CDT on 03/10/2025. The findings were acknowledged and understood. Chest X-Ray 03/10/25 16:50 IMPRESSION: Hazy opacity in the right upper lung zone possibly reflective of a infectious etiology. The lungs are otherwise clear. Laboratory Results WBC 6.86 10^3/uL (3.29-11.43) 03/10/25 17:02 RBC 3.64 10^6/uL (3.85-5.65) L 03/10/25 17:02 Hgb 10.80 g/dL (11.27-16.99) L 03/10/25 17:02 Hct 35.4 % (37-53) L 03/10/25 17:02 MCV 97.3 fl (82-101) 03/10/25 17:02 MCH 29.7 pg (27-33) 03/10/25 17:02 MCHC 30.5 g/dL (30-55) 03/10/25 17:02 RDW 17.8 % (12.1-15.1) H 03/10/25 17:02 Plt Count 156 10^3/cmm (157-399) L 03/10/25 17:02 MPV 9.7 fL (7.4-10.4) 03/10/25 17:02 Neut % (Auto) 81.3 % 03/10/25 17:02 Lymph % (Auto) 10.8 % 03/10/25 17:02 [place] % (Auto) 6.0 % 03/10/25 17:02 Eos % (Auto) 1.2 % 03/10/25 17:02 Baso % (Auto) 0.1 % 03/10/25 17:02 Neut # (Auto) 5.58 10^3/uL (1.8-7.7) 03/10/25 17:02 Lymph # (Auto) 0.7 10^3/uL (0.8-4.8) L 03/10/25 17:02 [place] # (Auto) 0.4 10^3/uL (0.2-0.9) 03/10/25 17:02 Eos # (Auto) 0.1 10^3/uL (0.0-0.8) 03/10/25 17:02 Baso # (Auto) 0.0 10^3/uL (0.0-0.1) 03/10/25 17:02 Nucleated RBC % (auto) 0 % 03/10/25 17:02 Nucleated RBCs # 0.0 /100WBC 03/10/25 17:02 Sodium 137 mmol/L (136-145) 03/10/25 17:02 Potassium 4.3 mmol/L (3.5-5.1) 03/10/25 17:02 Chloride 100 mmol/L (98-107) 03/10/25 17:02 Carbon Dioxide 23 mmol/L (22-29) 03/10/25 17:02 Anion Gap 18.3 (5-19) 03/10/25 17:02 BUN 24 mg/dL (8-23) H 03/10/25 17:02 Creatinine 1.3 mg/dL (0.7-1.2) H 03/10/25 17:02 GFR Calculation Not Reportable 03/10/25 17:02 Glucose 113 mg/dL (65-115) 03/10/25 17:02 Calculated Osmolality 289 mOsm/kg (285-295) 03/10/25 17:02 Calcium 9.2 mg/dL (8.5-10.5) 03/10/25 17:02 Total Bilirubin 0.8 mg/dL (0.15-1.2) 03/10/25 17:02 AST 27 U/L (0-40) 03/10/25 17:02 ALT 14 U/L (0-41) 03/10/25 17:02 Alkaline Phosphatase 72 U/L (40-130) 03/10/25 17:02 Total Protein 6.6 g/dL (6.6-8.7) 03/10/25 17:02 Albumin 4.1 g/dL (3.5-5.2) 03/10/25 17:02 Globulin 2.5 g/dL (1.3-4.6) 03/10/25 17:02 Urine Color Yellow (Yellow) 03/10/25 17:44 Urine Appearance Clear (CLEAR) 03/10/25 17:44 Urine pH 6.5 (5-7) 03/10/25 17:44 Ur Specific [place] 1.010 (1.005-1.030) 03/10/25 17:44 Urine Protein 2+ (Negative) A 03/10/25 17:44 Urine Glucose (UA) Negative (Normal) 03/10/25 17:44 Urine Ketones Negative (Negative) 03/10/25 17:44 Urine Blood Negative (Negative) 03/10/25 17:44 Urine Nitrate Negative (Negative) 03/10/25 17:44 Urine Bilirubin Negative (Negative) 03/10/25 17:44 Urine Urobilinogen 0.2 mg/dL (Negative) 03/10/25 17:44 Ur Leukocyte Esterase Negative (Negative) 03/10/25 17:44 Urine RBC 0-2 /hpf (0-2) 03/10/25 17:44 Urine WBC 0-5 /hpf (0-5) 03/10/25 17:44 Ur Squamous Epith Cells 0-5 /hpf (0-5) 03/10/25 17:44 Amorphous Sediment Not Reportable 03/10/25 17:44 Urine Bacteria None seen /hpf (NONE) 03/10/25 17:44 Hyaline Casts 0.81 /lpf 03/10/25 17:44 All radiology interpretation(s) finalized by discharge Discharge Plan Discharge Patient Disposition: Xfer Short-Term Hosp Clinical Impression: Subdural hemorrhage, Chronic anticoagulation Fall Qualifiers: Encounter type: initial encounter Qualified Code(s): W19.XXXA - Unspecified fall, initial encounter Condition: Stable Referrals: Kalani Guillaume MD [Primary Care Provider, [facility]] Print Language: Wolof Coding Level of Care Code ED Laminating Machine Feeder for Chg Fwd Documented by User: Gustavo Mercedes DO 03/10/25 23:39 HPI - Fall General: Chief Complaint: Fall Stated Complaint: fall(head,neck,shoulder pain) eyes hurt Time Seen by Provider: 03/10/25 16:38 Related Data Home Medications ?Medication ?Instructions ?Recorded ?Confirmed aspirin 81 mg tablet,delayed 81 mg PO DAILY 04/23/20 02/07/25 release nitroglycerin 0.4 mg sublingual 0.4 mg sublingual Q5M PRN Chest 04/23/20 02/07/25 tablet (Nitrostat) Pain rosuvastatin 20 mg tablet 20 mg PO DAILY 04/23/20 02/07/25 tamsulosin 0.4 mg capsule 0.4 mg PO DAILY 04/23/20 02/07/25 vitamin B complex 1 tab PO BID 04/23/20 02/07/25 calcium 333 mg-vit D3 200 1 tab PO DAILY 05/12/21 02/07/25 unit-magnesium 133 mg-zinc 5 mg tablet ascorbic acid (vitamin C) 500 mg 250 mg PO BID 08/04/21 02/07/25 tablet (Vitamin C) cranberry fruit 400 mg capsule 400 mg PO DAILY 08/04/21 02/07/25 elderberry fruit 460 mg-elderberry 1 cap PO BID 08/04/21 02/07/25 flower 115 mg capsule fexofenadine 60 mg tablet 60 mg PO BID 08/04/21 02/07/25 lansoprazole 15 mg capsule,delayed 15 mg PO DAILY 08/04/21 02/07/25 release (Prevacid 24Hr) acetaminophen 500 mg tablet 1,000 mg PO Q6H PRN Pain, Moderate 01/02/22 02/07/25 nifedipine 30 mg tablet,extended 30 mg PO DAILY 01/02/22 02/07/25 release 24 hr cholecalciferol (vitamin D3) 25 50 mcg PO BID 05/13/23 02/07/25 mcg (1,000 unit) chewable tablet (Vitamin D3) coenzyme Q10 10 mg capsule (Co 10 mg PO DAILY 05/13/23 02/07/25 Q-10) garlic 100 mg tablet 200 mg PO BID 05/13/23 02/07/25 indomethacin 25 mg capsule 25 mg PO TID PRN GOUT 05/13/23 02/07/25 metoprolol succinate 25 mg 25 mg PO DAILY 05/13/23 02/07/25 tablet,extended release 24 hr rivaroxaban 15 mg tablet (Xarelto) 15 mg PO DAILY 05/13/23 02/07/25 furosemide 40 mg tablet 40 mg PO BID 09/08/23 02/07/25 finasteride 5 mg tablet mg PO 02/07/25 02/07/25 hydralazine 25 mg tablet mg PO 02/07/25 02/07/25 isosorbide mononitrate 30 mg mg PO 02/07/25 02/07/25 tablet,extended release 24 hr potassium chloride 20 mEq meq PO 02/07/25 02/07/25 tablet,extended release(part/cryst) (Malou M) Previous Rx's ?Medication ?Instructions ?Recorded Symbicort 160 mcg-4.5 See Rx Instructions .Route 10/01/22 mcg/actuation HFA aerosol inhaler .COMPLEX #11 grams (budesonide-formoterol) fluticasone propionate 50 1 spray intranasal BID PRN allergy 08/04/23 mcg/actuation nasal symptoms #16 grams spray,suspension (Flonase Allergy Relief) ferrous sulfate 324 mg (65 mg 324 mg PO DAILY #30 tabs 08/18/23 iron) tablet,delayed release cyanocobalamin (vitamin B-12) 1,000 mcg sublingual DAILY #30 tabs 09/06/23 1,000 mcg sublingual tablet tiotropium bromide 1.25 2 puff inhalation DAILY #4 grams 09/08/23 mcg/actuation mist for inhalation (Spiriva Respimat) mecobalamin (vitamin B12) 1,000 1,000 mcg sublingual DAILY #30 tabs 11/18/23 mcg disintegrating tablet,sublingual hydrocodone 5 mg-acetaminophen 325 1 tab PO QID PRN pain 30 days #120 11/24/23 mg tablet tabs albuterol sulfate 90 mcg/actuation 2 puff inhalation QID PRN 12/31/23 aerosol inhaler shortness of breath or wheezing 30 days #18 grams gabapentin 300 mg capsule 300 mg PO DAILY #90 caps 11/14/24 prednisone 5 mg tablet 5 mg PO DAILY #90 tabs 11/14/24 sulfasalazine 500 mg tablet 0.5 g PO BID #180 tabs 02/08/25 (Azulfidine) Allergies Allergy/AdvReac Type Severity Reaction Status Date / Time 2-octyl cyanoacrylate Allergy ALGY-Rash Verified 02/07/25 12:57 iodine Allergy ALGY-Bliste Verified 02/07/25 12:57 r meperidine Allergy ALGY-Hives Verified 02/07/25 12:57 morphine Allergy ALGY-Rash Verified 02/07/25 12:57 povidone-iodine (From Allergy Unknown Verified 02/07/25 12:57 Betadine) soap (From Betadine) Allergy Unknown Verified 02/07/25 12:57 dermabond AdvReac Intermediate adr-blister Uncoded 02/07/25 12:57 s PFSH ED PFSH: Medical History Immunization counseling High risk medication use 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 CHF (congestive heart failure) Peripheral vascular disease CKD (chronic kidney disease) Pneumonia due to COVID-19 virus Surgical History S/P peripheral artery angioplasty with stent placement 2015 History of colonoscopy History of coronary angioplasty with insertion of stent 2003 S/P laparoscopic-assisted sigmoidectomy (08/06/21) H/O shoulder replacement History of right hip replacement Family History Sister Cancer Hyperlipidemia Hypertension Rheumatoid arthritis Mother Hyperlipidemia Hypertension Rheumatoid arthritis Father Hyperlipidemia Hypertension Stroke Rheumatoid arthritis Brother Hyperlipidemia Hypertension Heart attack Rheumatoid arthritis Denies family history of Diabetes Lupus Social History Smoking and tobacco/nicotine status: unknown if used tobacco/nicotine Quit status (tobacco/nicotine): has quit using Year quit tobacco: 1987 - 4PPD x 30 Years Second hand smoke exposure: No Alcohol intake: current Alcohol intake frequency: few times a week Alcohol type: wine Substance/Drug Use: never Lives independently: Yes Household members: spouse Marital status: service: Yes Current occupational status: retired Do you think of yourself as: Straight/Heterosexual Current gender identity: Male Physical Exam Neuro: JESUS COMA SCALE: document GCS findings Jesus coma scale total score: 15 Course Vital Signs: Vital signs: Vital Signs Temperature 100.6 F H 03/10/25 16:41 Pulse Rate 71 03/10/25 19:00 Respiratory Rate 16 03/10/25 19:00 Blood Pressure 149/66 03/10/25 19:00 Pulse Oximetry 95 03/10/25 19:00 Oxygen Delivery Me thod Room Air 03/10/25 19:00 MDM - Fall Medical Decision Making Patient is an 84-year-old male who presents to ED today following a fall several days ago where he fell backwards and struck his head. He is on Xarelto. He felt like he was doing okay following the fall until today when he felt like his headache worsened. He was found to have a left-sided subdural hematoma. Blood pressures are stable. CT cervical spine unremarkable. He did have a low-grade fever upon arrival. Refused COVID/RSV/influenza testing. Patient's blood work showing a normal white count. He has chronic stable anemia. UA is clear. BUN/Cr are at baseline. CXR with possible R upper pneumonia-pend official read. Dr. Chong at [facility] neurosurgery recommending AndexXa. His last dose of Xarelto was yesterday evening and he took 15mg. Spoke to Dr. Mercedes and we will administer a 400mg bolus here prior to transfer. Patient will go ED to ED with Dr. Alicea as ED admitting physician. Patient originally seen by Mrs. Marrero?NORMA Potter. I agree with her history, evaluation, and management. Lab Data 03/10/25 17:02 03/10/25 17:02 Radiology Impressions Cervical Spine CT 03/10/25 16:31 IMPRESSION: 1. No acute osseous findings in the cervical spine. 2. Advanced multilevel cervical spondylosis. Head CT 03/10/25 16:31 IMPRESSION: 1. Small acute left subdural hematoma overlying the cerebral convexity. Possible trace rightward midline shift of about 1 mm. 2. Paranasal sinus disease. THIS REPORT CONTAINS FINDINGS THAT MAY BE CRITICAL TO PATIENT CARE. The findings were verbally communicated via telephone conference with DEMOND MARRERO at 5:52 PM CDT on 03/10/2025. The findings were acknowledged and understood. Chest X-Ray 03/10/25 16:50 IMPRESSION: Hazy opacity in the right upper lung zone possibly reflective of a infectious etiology. The lungs are otherwise clear. Laboratory Results WBC 6.86 10^3/uL (3.29-11.43) 03/10/25 17:02 RBC 3.64 10^6/uL (3.85-5.65) L 03/10/25 17:02 Hgb 10.80 g/dL (11.27-16.99) L 03/10/25 17:02 Hct 35.4 % (37-53) L 03/10/25 17:02 MCV 97.3 fl (82-101) 03/10/25 17:02 MCH 29.7 pg (27-33) 03/10/25 17:02 MCHC 30.5 g/dL (30-55) 03/10/25 17:02 RDW 17.8 % (12.1-15.1) H 03/10/25 17:02 Plt Count 156 10^3/cmm (157-399) L 03/10/25 17:02 MPV 9.7 fL (7.4-10.4) 03/10/25 17:02 Neut % (Auto) 81.3 % 03/10/25 17:02 Lymph % (Auto) 10.8 % 03/10/25 17:02 [place] % (Auto) 6.0 % 03/10/25 17:02 Eos % (Auto) 1.2 % 03/10/25 17:02 Baso % (Auto) 0.1 % 03/10/25 17:02 Neut # (Auto) 5.58 10^3/uL (1.8-7.7) 03/10/25 17:02 Lymph # (Auto) 0.7 10^3/uL (0.8-4.8) L 03/10/25 17:02 [place] # (Auto) 0.4 10^3/uL (0.2-0.9) 03/10/25 17:02 Eos # (Auto) 0.1 10^3/uL (0.0-0.8) 03/10/25 17:02 Baso # (Auto) 0.0 10^3/uL (0.0-0.1) 03/10/25 17:02 Nucleated RBC % (auto) 0 % 03/10/25 17:02 Nucleated RBCs # 0.0 /100WBC 03/10/25 17:02 Sodium 137 mmol/L (136-145) 03/10/25 17:02 Potassium 4.3 mmol/L (3.5-5.1) 03/10/25 17:02 Chloride 100 mmol/L (98-107) 03/10/25 17:02 Carbon Dioxide 23 mmol/L (22-29) 03/10/25 17:02 Anion Gap 18.3 (5-19) 03/10/25 17:02 BUN 24 mg/dL (8-23) H 03/10/25 17:02 Creatinine 1.3 mg/dL (0.7-1.2) H 03/10/25 17:02 GFR Calculation Not Reportable 03/10/25 17:02 Glucose 113 mg/dL (65-115) 03/10/25 17:02 Calculated Osmolality 289 mOsm/kg (285-295) 03/10/25 17:02 Calcium 9.2 mg/dL (8.5-10.5) 03/10/25 17:02 Total Bilirubin 0.8 mg/dL (0.15-1.2) 03/10/25 17:02 AST 27 U/L (0-40) 03/10/25 17:02 ALT 14 U/L (0-41) 03/10/25 17:02 Alkaline Phosphatase 72 U/L (40-130) 03/10/25 17:02 Total Protein 6.6 g/dL (6.6-8.7) 03/10/25 17:02 Albumin 4.1 g/dL (3.5-5.2) 03/10/25 17:02 Globulin 2.5 g/dL (1.3-4.6) 03/10/25 17:02 Urine Color Yellow (Yellow) 03/10/25 17:44 Urine Appearance Clear (CLEAR) 03/10/25 17:44 Urine pH 6.5 (5-7) 03/10/25 17:44 Ur Specific [place] 1.010 (1.005-1.030) 03/10/25 17:44 Urine Protein 2+ (Negative) A 03/10/25 17:44 Urine Glucose (UA) Negative (Normal) 03/10/25 17:44 Urine Ketones Negative (Negative) 03/10/25 17:44 Urine Blood Negative (Negative) 03/10/25 17:44 Urine Nitrate Negative (Negative) 03/10/25 17:44 Urine Bilirubin Negative (Negative) 03/10/25 17:44 Urine Urobilinogen 0.2 mg/dL (Negative) 03/10/25 17:44 Ur Leukocyte Esterase Negative (Negative) 03/10/25 17:44 Urine RBC 0-2 /hpf (0-2) 03/10/25 17:44 Urine WBC 0-5 /hpf (0-5) 03/10/25 17:44 Ur Squamous Epith Cells 0-5 /hpf (0-5) 03/10/25 17:44 Amorphous Sediment Not Reportable 03/10/25 17:44 Urine Bacteria None seen /hpf (NONE) 03/10/25 17:44 Hyaline Casts 0.81 /lpf 03/10/25 17:44 Discharge Plan Discharge Patient Disposition: Xfer Short-Term Hosp Clinical Impression: Subdural hemorrhage, Chronic anticoagulation Fall Qualifiers: Encounter type: initial encounter Qualified Code(s): W19.XXXA - Unspecified fall, initial encounter Condition: Stable Referrals: Kalani Guillaume MD [Primary Care Provider, [facility]] Print Language: Wolof Coding Level of Care Code ED Laminating Machine Feeder for Tiffanie Xie
--- NOTE | 2025-03-10 17:09 | PC.NURSE ---
Patient and refused covid/flu/rsv nasal swab. education provided to patient regarding why this was ordered. Pt and states, this is how they give you Covid. states, she has heard that the swabs come contaminated with the virus already. Educated patient and that this is not the case at all but he can refuse any testing/ treatment that he wants. Pt then states they always come back positive anyways. Jenny Marrero division operations manager notified of the swab refusal.
[2025-03-10 17:11] LABS: Hematocrit 35.4 % (37-53); Hemoglobin 10.80 g/dL (11.27-16.99); Mean Corpuscular HGB Conc 30.5 g/dL (30-55); Mean Corpuscular Hemoglobin 29.7 pg (27-33); Mean Corpuscular Volume 97.3 fl (82-101); Nucleated Red Blood Cells % 0 %; Platelet Count 156 10^3/cmm (157-399); Red Blood Count 3.64 10^6/uL (3.85-5.65); White Blood Count 6.86 10^3/uL (3.29-11.43)
[2025-03-10 17:33] LABS: Alanine Aminotransferase 14 U/L (0-41); Albumin Level 4.1 g/dL (3.5-5.2); Alkaline Phosphatase 72 U/L (40-130); Anion Gap 18.3 (5-19); Aspartate Amino Transferase 27 U/L (0-40); Blood Urea Nitrogen 24 mg/dL (8-23); Calcium 9.2 mg/dL (8.5-10.5); Carbon Dioxide 23 mmol/L (22-29); Chloride 100 mmol/L (98-107); Creatinine Clr Calc Pharmacy 44.8367; Globulin 2.5 g/dL (1.3-4.6); Glucose 113 mg/dL (65-115); Osmolality Calculated 289 mOsm/kg (285-295); Potassium 4.3 mmol/L (3.5-5.1); Sodium 137 mmol/L (136-145); Total Protein 6.6 g/dL (6.6-8.7)
[2025-03-10 17:49] LABS: Glucose Urine UA Negative (Normal); Nitrate Urine Negative (Negative); Specific Gravity, Urine 1.010 (1.005-1.030)
[2025-03-10 17:57] LABS: Add Urine Microscopic? YES
[2025-03-10 18:22] VITALS: BP 158/62; PULSE 68; RESP 17; O2SAT 95
[2025-03-10 18:40] VITALS: BP 144/67; PULSE 79; RESP 17; O2SAT 94
[2025-03-10 19:00] VITALS: BP 149/66; PULSE 71; RESP 16; O2SAT 95
--- NOTE | 2025-03-10 19:08 | PC.NURSE ---
THIS NURSE ASSUMED CARE @ 2575.
--- NOTE | 2025-03-10 19:16 | PC.NURSE ---
PATIENT REFUSED COVID/FLU/RSV SWAB.
[2025-03-10] MEDS: factor xa, inactivated-zhzo 400 MG in empty flexible container 1 EACH, non-DEHP filter ... 180 MG IV (19:43)
== END 2025-03-10 19:54 | disposition short-term general hospital (02) ==
PROVIDERS: Emergency Provider Physician Assistant; PCP Family Medicine
DX: S06.5X0A Traumatic subdural hemorrhage without loss of consciousness, initial encounter (principal); Z79.01 Long term (current) use of anticoagulants; W19.XXXA Unspecified fall, initial encounter; Z87.891 Personal history of nicotine dependence; N18.9 Chronic kidney disease, unspecified; I50.9 Heart failure, unspecified
CPT/HCPCS: 36415; 70450; 71045; 72125; 80053; 81001; 85025; 99284; A4222; J7169

== ENCOUNTER 2025-03-19 14:46 | Emergency (ER) | payer MEDICARE, SELFPAY ==
--- OUTSIDE RECORDS SUMMARY | 2025-03-10 21:33 | XMS_ITS | Encounter Summary ---
Author Organization [facility] Address [address] [place] [address] Care Team Providers Care Auto Tech Name Role Phone Kalani Guillaume MD Primary Care Provider + [phone] Reason for Referral * Eval and Treat (Routine) - Closed Specialty Diagnoses / Procedures Referred By Mary t Referred To Contact Diagnoses Subdural hematoma (CMS/HCC) Procedures ID OFFICE/OUTPATIENT ESTABLISHED MOD MDM 30 MIN ID OFFICE/OUTPATIENT NEW MODERATE MDM 45 MINUTES Stu Romeo MD [address] [place] [address] Phone: tel: fax: Referral ID Status Reason Start Date Expiration Date Visits Re quested Visits Authorized [id number] Closed 03/13/2025 03/13/2026 1 1 Reason for Visit * Reason Comments Headache * Auth/Cert (Routine) Specialty Diagnoses / Procedures Referred By Contzhane t Referred To Contact Emergency Medicine Diagnoses Left [facility] Emergency Department [address] [place] [address] Phone: tel: fax: Referral ID Status Reason Start Date Expiration Date Visits Re quested Visits Authorized [id number] 1 1 Encounter Details Date Type Department Care Team (Latest Contact Info) Description 03/10/2025 9:33 PM CDT - 03/13/2025 1:14 PM CDT Hospital Encounter [facility] 6CD Neurology [address] [place] [address] Washington Wick DO [address] [place] [address] Olga Sheehan MD [address] [place] [address] Stu Romeo MD [address] [place] [address] Subdural hematoma (CMS/HCC) Discharge Disposition: Home or Self Care Social History Tobacco Use Types Packs/Day Years Used Date Smoking Tobacco: Former Cigarettes Q uit: 06/01/1986 Smokeless Tobacco: Never Alcohol Use Standard Drinks/Week Comments Yes 14 (1 standard drink = 0.6 oz pu re alcohol) Feeling Safe Answer Date Recorded Are you in a relationship wi th someone who hurts you emotionally and/or physically? No 03/10/2025 Food Insecurity Answer Date Recorded Patient needs follow up regardin 03/11/2025 Transportation Needs Answer Date Record ed Patient needs follow up regardin 03/11/2025 Housing Stability Answer Date Recorded Social/Environmental Concerns No concerns Utility Needs Answer Date Recorded Patient needs follow up regardin 03/11/2025 Sex and Gender Information Value Date Recorded Sex Assigned at Not on file Legal Sex Male 5:18 PM [employer] Gender Identity Not on file Sexual Orientation Not on file documented as of this encounter Last Filed Vital Signs Vital Sign Reading Time Taken Comments Blood Pressure 125/65 03/13/2025 11:16 AM CDT Pulse 69 03/13/2025 11:16 AM CDT Temperature 36.4 C (97.6 F) 03/13/2025 11:16 AM CDT Respiratory Rate 18 03/13/2025 11:16 AM CDT Oxygen Saturation 95% 03/13/2025 11:16 AM CDT Inhaled Oxygen Concentration - - Weight 75 kg (165 lb 5.5 oz) 03/11/2025 4:17 AM CDT Height 175.3 cm (5' 9 ) 03/11/2025 12:32 AM CDT Body Mass Index 24.42 03/11/2025 12:32 AM CDT documented in this encounter Discharge Summaries * Stu Romeo MD - 03/13/2025 9:44 AM CDT Physician Discharge Summary PATIENT: Juan M Mabry AGE: 84 y.o. CSN: [id number] Date of : 1940 Admit date: 03/10/2025 Discharge date: 03/13/2025 Disposition: home Discharge Condition: improving. Patient instructions: Activity: activity as tolerated. Diet: DIET CARDIAC Low Cholesterol (AHA),; 2GM Sodium (Low), Follow-up with Kalani Guillaume MD in 5 day(s). Patient has been instructed to seek urgent medical care or call PCP if patient has ANY health care concerns or questions such as fever greater than 101, increasing SOB or chest pain that is not normal or increasing or any other concerns. Significant Diagnostic Studies: CT head. Consults: Neurosurgery. Hospital Course: Juan M Mabry is a 84 y.o. male who is being admitted for further evaluation of headache. He has a past medical history of A-fib on anticoagulation, CKD 3, gout, asthma, diastolic CHF, GERD, SSS s/p PPM, hypertension, ASHD, hyperlipidemia, PAD, PVD. Patient is ED to ED transfer. He presented to outside facility complaining of worst headache of his life and was diagnosed with subdural hematoma with 7 mm shift. Patient was given adnexa for anticoagulation reversal. He was transferred to [facility] for neurosurgery evaluation and higher level of care. CT head showing acute left subdural hematoma measuring 6 mm,no mass effect or midline shift. 03/11: Patient denies any complaints. Awaiting repeat CT head and neurosurgery evaluation. Patient continues to do well. Repeat CT of the head were done and monitored by neurosurgery. Patient was cleared to be discharged by neurosurgery. Patient to follow up with them in the clinic in [address] head. Patient has been advised to not take his Xarelto until advised. He has otherwise had an unremarkable hospital stay and was discharged home in a stable condition. Discharge Exam: BP 104/71 (BP Location: Left arm, Patient Position (BP): Supine) Pulse 64 Temp 97.4 ??F (36.3 ??C) (Oral) Resp 18 Ht 5' 9 (1.753 m) Wt 75 kg (165 lb 5.5 oz) SpO2 96% BMI 24.42 kg/m?? General appearance: alert, in no distress Lungs: clear to auscultation bilaterally, normal respiratory effort Heart: normal rate, regular rhythm, normal S1, S2, no murmurs, rubs, clicks or gallops Abdomen: Soft, non-tender. Bowel sounds normal. No masses, no organomegaly. Extremities: extremities normal, atraumatic, no cyanosis or edema, intact distal pulses, moves all extremities equally, no edema, redness or tenderness in the calves or thighs, normal strength, normal tone Neurologic: Grossly normal Discharge Diagnoses: Principal Problem: Subdural hematoma (CMS/HCC) with use of anticoagulation Active Problems: PAD (peripheral artery disease) Dyslipidemia ASHD (arteriosclerotic heart disease) Gastroesophageal reflux disease without esophagitis Essential hypertension Chronic kidney disease, stage 3 Chronic combined systolic (congestive) and diastolic (congestive) heart failure (CMS/HCC) SSS (sick sinus syndrome) (CMS/HCC) 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 Commonly known as: Xarelto Take 1 Tablet (15 mg) by mouth daily with supper. Signed by: Dr. Iglesia Gimenez Quantity: 90 Tablet Refills: 3 CONTINUE taking these medications acetaminophen 500 mg tablet Commonly known as: TYLENOL Take 500 mg by mouth 2 times daily. Refills: 0 albuterol sulfate 90 mcg/Actuation inhaler Take 2 Puffs by inhalation every 6 hours as needed. Refills: 0 allopurinoL 300 mg tablet Commonly known as: ZYLOPRIM Take 300 mg by mouth daily. Refills: 0 ascorbic acid (vitamin C) 1,000 mg Tablet Commonly known as: VITAMIN C Take 1,000 mg by mouth 2 times daily. Refills: 0 aspirin 81 mg Tablet, Delayed Release (E.C.) Commonly known as: ECOTRIN EC Take 81 mg by mouth daily. Refills: 0 budesonide-formoteroL 160-4.5 mcg/actuation HFA Aerosol Inhaler Commonly known as: SYMBICORT Take 2 Puffs by inhalation daily. Refills: 0 cranberry extract 500 mg Tablet Take by mouth 2 times daily. Refills: 0 diphenhydrAMINE-acetaminophen 25-500 mg Tablet Commonly known as: TYLENOL PM Take 2 Tablets by mouth 2 times daily. Refills: 0 ELDERBERRY ORAL Take by mouth daily. Refills: 0 ferrous sulfate 325 mg (65 mg iron) tablet Take 1 Tablet by mouth daily. Refills: 0 fexofenadine 60 mg tablet Commonly known as: KOKO Take 60 mg by mouth daily. Refills: 0 fluticasone propionate 50 mcg/spray [place], Suspension nasal inhaler Commonly known as: FLONASE USE 1 SPRAY(S) IN EACH NOSTRIL TWICE DAILY NEEDED FOR ALLERGIES Refills: 0 furosemide 40 mg tablet Commonly known as: LASIX Take 1 tablet by mouth once daily Signed by: Dr. Iglesia Gimenez Quantity: 90 Tablet Refills: 3 gabapentin 300 mg capsule Commonly known as: NEURONTIN Take 300 mg by mouth daily. Refills: 0 hydrALAZINE 25 mg tablet Commonly known as: APRESOLINE Take 1 Tablet (25 mg) by mouth 3 times daily. Signed by: Dr. Iglesia Gimenez Quantity: 270 Tablet Refills: 3 isosorbide mononitrate 30 mg Extended Release 24 hour tablet Commonly known as: IMDUR take 1 tablet by mouth once daily in the morning Signed by: Dr. Jennifer Ocampo Quantity: 90 Tablet Refills: 3 LANSOPRAZOLE (BULK) MISC Take 20 mg by mouth 2 times daily. Refills: 0 metoprolol succinate 25 mg Extended Release 24 hour tablet Commonly known as: TOPROL XL Take 1 tablet by mouth once daily Signed by: Dr. Jennifer Ocampo Quantity: 90 Tablet Refills: 3 NIFEdipine 30 mg Extended Release 24 hour tablet Commonly known as: PROCARDIA XL Take 1 tablet by mouth once daily Signed by: Dr. Iglesia Gimenez Quantity: 90 Tablet Refills: 3 nitroglycerin 0.4 mg Tablet, Sublingual Commonly known as: NITROSTAT Place 1 Tablet (0.4 mg) under tongue every 5 minutes as needed for Chest Pain. Signed by: Dr. Iglesia Gimenez Quantity: 25 Tablet Refills: 6 potassium CHLORIDE 20 mEq Extended Release tablet Commonly known as: K-DUR,KLOR-CON M20 Take 1 tablet by mouth once daily Signed by: Dr. Iglesia Gimenez Quantity: 90 Tablet Refills: 0 predniSONE 5 mg tablet Commonly known as: DELTASONE Take 1 Tablet by mouth daily. Refills: 0 rosuvastatin 20 mg tablet Commonly known as: CRESTOR TAKE 1 TABLET BY MOUTH ONCE DAILY AT BEDTIME Signed by: Dr. Iglesia Gimenez Quantity: 90 Tablet Refills: 3 sulfaSALAzine 500 mg tablet Commonly known as: AZULFIDINE Take 500 mg by mouth daily. Refills: 0 tamsulosin 0.4 mg capsule Commonly known as: FLOMAX Take 0.4 mg by mouth daily. Refills: 0 VITAMIN A ORAL Take 1 Tablet by mouth 2 times daily. Refills: 0 VITAMIN B COMPLEX 100 2-HERBS ORAL Take 1 Tablet by mouth 2 times daily. Refills: 0 VITAMIN D3 ORAL Take 1 Tablet by mouth daily. Refills: 0 STOP taking these medications HYDROcodone-acetaminophen 5-325 mg tablet Commonly known as: NORCO indomethacin 25 mg capsule Commonly known as: INDOCIN This discharge took greater than 30 minutes which included examining the patient, answering questions and providing instructions for follow up, prescribing medications and coordinating discharge arrangements. Signed: Stu Romeo MD 03/13/2025, 9:44 AM CC: Kalani Guillaume MD documented in this encounter Discharge Instructions * Discharge Instructions* Tiara Rodriguez RN - 03/13/2025 9:44 AM CDT Admit date: 03/10/2025 Discharge date: 03/13/2025 Disposition: home Discharge Condition: improving. Patient instructions: Activity: activity as tolerated. Diet: DIET CARDIAC Low Cholesterol (AHA),; 2GM Sodium (Low), Follow-up with Kalani Guillaume MD in 5 day(s). Follow up with specialists. Per previously scheduled appointment or according their most recent instructions. During your hospital stay you were cared for by the hospitalist service in collaboration with your primary care physician. Your primary care physician will have access to/or receive records includingan updated list of your medications upon your discharge from the hospital. As the hospitalist physician provides care while you are in the hospital, your primary care physician will assume that responsibility after you are discharged from the hospital. Please contact your primary care physician's office for a follow-up as instructed. Please contact your PCPs office regarding any questions or new problems, including medication refills or ANY health care concerns or questions such as but not limited to fever greater than 101. Increasing SOB. Chest pain that is not normal or increasing or any other health concerns. [facility] Discharge Instructions Discharge & Transfer patient to: Home Symptoms/Diagnosis: Subdural hematoma (CMS/HCC) Procedures Performed, if any: 03/12 1005 COMPREHENSIVE METABOLIC PANEL Labs and studies from this hospitalization needing follow up: Follow up PCP Your physician, Kalani Guillaume MD, has been notified of this hospitalization. Follow-up: You must follow up with Kalani Guillaume MD in 3-5 days Follow up consultants Neurosurgery [phone] April 11 at 9:[address] Future Appointments Date Time Provider Department [place] 04/02/2025 11:00 AM [id number] 04/11/2025 9:30 AM Madhav Fuchs NP [facility] 05/31/2025 8:00 AM CARDIOVASCULAR[facility] REM[facility] 09/04/2025 2:40 PM Johan Nicholas FNP [facility] 11/15/2025 2:20 PM [facility] If the office does not reach you to make a follow up appointment, please call [phone]. Activity level: up as tolerated DIET: DIET CARDIAC Low Cholesterol (AHA),; 2GM Sodium (Low), Wound Care: Other Comments: Continue to hold anticoagulation. Follow up in the Emergency Room For any recurrence or worsening of admission concerns, chest pain, palpitations, shortness of breath, coughing blood, nausea, vomiting, diarrhea, pain, fever, chills, bleeding, bloody or tarry stools, change to urine or bowel output, Contact hospitalist office [phone] for questions if [facility]. * Attachments The following attachments cannot be sent through Care Everywhere. * Subdural Hematoma (Sudanese) documented in this encounter Medications at Time of Discharge diphenhydrAMINE-ac etaminophen (TYLENOL PM) 25-500 mg Tablet Take 2 Tablets by mouth 2 times daily. nitroglycerin (NITROSTAT) 0.4 mg Tablet, Sublingual Place 1 Tablet (0.4 mg) under tongue every 5 minutes as needed for Chest Pain. 25 Tablet 6 03/01/2025 potassium CHLORIDE (K-DUR,KLOR-CON M20) 20 mEq Extended Release tablet Take 1 tablet by mouth once daily 90 Tablet 01/01/2025 NIFEdipine (PROCARDIA XL) 30 mg Extended Release 24 hour tablet Take 1 tablet by mouth once daily 90 Tablet 3 11/07/2024 metoprolol succinate (TOPROL XL) 25 mg Extended Release 24 hour tabletIndications: Second degree heart block,Sick sinus syndrome (CMS/HCC),Paroxysm al atrial fibrillation (CMS/HCC) Take 1 tablet by mouth once daily 90 Tablet 3 08/28/2024 rivaroxaban (Xarelto) 15 mg Tablet Take 1 Tablet (15 mg) by mouth daily with supper. 90 Tablet 3 08/28/2024 rosuvastatin (CRESTOR) 20 mg tabletIndications: Atherosclerosis of coronary artery, unspecified vessel or lesion type, unspecified whether angina present, unspecified whether [place] or transplanted heart TAKE 1 TABLET BY MOUTH ONCE DAILY AT BEDTIME 90 Tablet 3 07/25/2024 furosemide (LASIX) 40 mg tablet Take 1 tablet by mouth once daily 90 Tablet 3 03/16/2024 allopurinoL (ZYLOPRIM) 300 mg tablet Take 300 mg by mouth daily. ascorbic acid, vitamin C, (VITAMIN C) 1,000 mg Tablet Take 1,000 mg by mouth 2 times daily. ferrous sulfate 325 mg (65 mg iron) tablet Take 1 Tablet by mouth daily. fluticasone propionate (FLONASE) 50 mcg/spray [place], Suspension nasal inhaler USE 1 SPRAY(S) IN EACH NOSTRIL TWICE DAILY NEEDED FOR ALLERGIES predniSONE (DELTASONE) 5 mg tablet Take 1 Tablet by mouth daily. 01/20/2024 acetaminophen (TYLENOL) 500 mg tablet Take 500 mg by mouth 2 times daily. fexofenadine (KOKO) 60 mg tablet Take 60 mg by mouth daily. albuterol sulfate 90 mcg/Actuation inhaler Take 2 Puffs by inhalation every 6 hours as needed. budesonide-formote roL (SYMBICORT) 160-4.5 mcg/actuation HFA Aerosol Inhaler Take 2 Puffs by inhalation daily. 06/03/2020 sulfaSALAzine (AZULFIDINE) 500 mg tablet Take 500 mg by mouth daily. gabapentin (NEURONTIN) 300 mg capsule Take 300 mg by mouth daily. 10/20/2021 VITAMIN A ORAL Take 1 Tablet by mouth 2 times daily. cranberry fruit extract (cranberry extract) 500 mg Tablet Take by mouth 2 times daily. vit B complex 100 no.2/herbs (VITAMIN B COMPLEX 100 2-HERBS ORAL) Take 1 Tablet by mouth 2 times daily. LANSOPRAZOLE, BULK, MISC Take 20 mg by mouth 2 times daily. elderberry fruit (ELDERBERRY ORAL) Take by mouth daily. 07/04/2019 aspirin (ECOTRIN EC) 81 mg Tablet, Delayed Release (E.C.) Take 81 mg by mouth daily. 04/03/2019 cholecalciferol, vitamin D3, (VITAMIN D3 ORAL) Take 1 Tablet by mouth daily. 10/29/2017 tamsulosin (FLOMAX) 0.4 mg capsule Take 0.4 mg by mouth daily. 10/29/2016 hydrALAZINE (APRESOLINE) 25 mg tablet Take 1 Tablet (25 mg) by mouth 3 times daily. 270 Tablet 3 03/29/2024 5 isosorbide mononitrate (IMDUR) 30 mg Extended Release 24 hour tablet take 1 tablet by mouth once daily in the morning 90 Tablet 3 03/29/2024 5 documented as of this encounter Progress Notes * Sridevi De La Paz PA - 03/13/2025 9:05 AM CDT Neurosurgery Progress Note Hospital Day: 3 Subjective: Sitting on the side of the bed. States I feel a lot better Exam/Objective: BP 104/71 (BP Location: Left arm, Patient Position (BP): Supine) Pulse 64 Temp 97.4 ??F (36.3 ??C) (Oral) Resp 18 Ht 5' 9 (1.753 m) Wt 75 kg (165 lb 5.5 oz) SpO2 96% BMI 24.42 kg/m?? Intake/Output Summary (Last 24 hours) at 03/13/2025 0905 Last data filed at 03/13/2025 0800 Gross per 24 hour Intake 240 ml Output 1350 ml Net -1110 ml No results found for this visit on 03/10/25 (from the past 24 hours). 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 Plan: Repeat head CT this am is stable. Reviewed today by me. Neuro intact. Ok to d/c home from NSGY standpoint Continue to hold anticoagulation. F/u with NSGY in 3 weeks with repeat head CT. Please call with any issues Sridevi De La Paz MS, PAPaoloC Cosigned by Jennifer Chong MD at 03/14/2025 10:42 AM CDT * Sridevi De La Paz PA - 03/12/2025 9:27 AM CDT NEUROSURGERY admit Date: 03/10/2025 Hospital day: Subjective: Patient sitting on side of bed, talking on phone. No new issues Objective: Patient Vitals for the past 8 hrs: BP Temp Temp src Pulse Resp SpO2 03/12/25 0737 121/65 97.3 ??F (36.3 ??C) Temporal -- 18 96 % 03/12/25 0736 -- -- -- -- -- 97 % 03/12/25 0337 (!) 159/84 98.2 ??F (36.8 ??C) Temporal 68 16 95 % Lab Results Component Value Date WBC 6.6 03/11/2025 HGB 10.2 (L) 03/11/2025 HCT 32.6 (L) 03/11/2025 PLT 141 03/11/2025 MCV 94.2 03/11/2025 EXAM: Alert and Oriented x 3. SALINAS. EOM's intact. Neck supple. DTR's, motor power and sensation normal and symmetric. Assessment: Principal Problem: Subdural hemorrhage (CMS/HCC) Active Problems: PAD (peripheral artery disease) Dyslipidemia ASHD (arteriosclerotic heart disease) Gastroesophageal reflux disease without esophagitis Essential hypertension Chronic kidney disease, stage 3 Chronic diastolic congestive heart failure (CMS/HCC) SSS (sick sinus syndrome) (CMS/HCC) 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 Asthma Gout Chronic atrial fibrillation (CMS/HCC) Peripheral vascular disease Plan: Neuro stable. Repeat head CT this am. Continue to hold xarelto. Will need to hold for minimum 2 weeks. Non operative management of SDH at this time. Slight increase of SDH. Recommend continued neuro monitoring. Repeat head CT tomorrow am. Cosigned by Jennifer Chong MD at 03/12/2025 1:23 PM CDT * Radha Suazo RN - 03/11/2025 11:29 PM CDT Please note, The pictures of knees in the media gallery were an error and not of this patient. Thank you. documented in this encounter H&P Notes * Olga Sheehan MD - 03/10/2025 11:45 PM CDT [facility] Hospitalist-Olga Sheehan MD History and physical- date of admission: 03/10/2025 Patient name: Juan M Mabry Date of : 1940 CSN number: [id number] PCP: Kalani Guillaume MD Chief Complaint: Chief Complaint Patient presents with Headache History of present illness: Pt seen and examined at the bedside Juan M Mabry is a 84 y.o. male who is being admitted for further evaluation of headache. He has a past medical history of A-fib on anticoagulation, CKD 3, gout, asthma, diastolic CHF, GERD, SSS s/p PPM, hypertension, ASHD, hyperlipidemia, PAD, PVD. Patient is ED [facility] ED transfer. [facility] of worst headache of his life and was diagnosed with subdural hematomawith 7 mm shift. Patient was given adnexa for anticoagulation reversal. He was transferred to [facility] for neurosurgery evaluation and higher level of care. CT head showing acute left subdural hematoma measuring 6 mm,no mass effect or midline shift. ED provider has consulted Dr. Chong with ne urosurgery. He is being admitted to medicine hospitalist service for further management. Past medical history: Past Medical History: Diagnosis Date Anxiety Arthritis Chest pain Colon cancer (CMS/HCC) 08/07/2021 stage 1, removed. Congestive heart failure (CMS/HCC) Coronary artery disease CRI (chronic renal insufficiency) Dyspnea on exertion Emphysema of lung (CMS/HCC) GERD (gastroesophageal reflux disease) Injury of back ruptured Injury of face and neck ruptured disc PVD (peripheral vascular disease) Unspecified disorder of lipoid metabolism Unspecified essential hypertension Active chronic medical issues that patient has been followed for as outpatient: Patient Active Problem List Diagnosis Code Hip joint replacement by other means Z96.649 PAD (peripheral artery disease) I73.9 Carpal tunnel syndrome of right wrist G56.01 Dyslipidemia E78.5 ASHD (arteriosclerotic heart disease) I25.10 Gastroesophageal reflux disease without esophagitis K21.9 Preoperative general physical examination Z01.818 Essential hypertension I10 Benign prostatic hyperplasia with lower urinary tract symptoms N40.1 Anemia D64.9 Chronic kidney disease, stage 3 N18.30 S/P shoulder replacement, left Z96.612 Primary osteoarthritis, right shoulder M19.011 S/P shoulder replacement, right Z96.611 Chronic diastolic congestive heart failure ([facility]/HCC) I50.32 A-fib ([facility]) I48.91 Congestive heart failure with left ventricular diastolic dysfunction, NYHA class 3 ([facility]) I50.30 Cardiomyopathy ([facility]) I42.9 SSS (sick sinus syndrome) ([facility]) I49.5 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 Z95.810 Asthma J45.909 Gout M10.9 Chronic atrial fibrillation ([facility]) I48.20 Peripheral vascular disease I73.9 Subdural hemorrhage ([facility]) I62.00 Past surgical history: Past Surgical History: Procedure Laterality Date [facility] ANGIOGRAPHY EXTREMITY UNILATERAL RS&I 02/09/2012 LEG ARTERIOGRAM performed by Charity Ocampo MD at [facility] MAIN OR HX HEART CATHETERIZATION HX HERNIA INGUINAL REPAIR Left 03/06/2015 HERNIA INGUINAL REPAIR performed by Raymond Matias MD at [facility] SURGERY [place] HX HIP REPLACEMENT Right HX PACEMAKER PLACEMENT HX PTCA 2 coronary stents. HX SURGICAL OTHER Left 2017 Leg, stent placement HX SURGICAL OTHER Left 03/06/2015 MESH PLACEMENT performed by Raymond Matias MD at [facility] SURGERY [place] HX VASCULAR SURGERY Right 07/07/2019 right leg HX VASCULAR SURGERY Left 2017 femoral ID ARTHROPLASTY GLENOHUMERAL JOINT TOTAL SHOULDER Right 01/17/2020 SHOULDER ARTHROPLASTY TOTAL REPLACEMENT performed by Ian Perkins MD at [facility] OR ID ARTHROPLASTY GLENOHUMERAL JOINT TOTAL SHOULDER Left 04/25/2019 SHOULDER ARTHROPLASTY TOTAL REPLACEMENT performed by Ian Perkins MD at [facility] OR ID FLUORESCEIN ANGRPH W/MULTIFRAME IMG I&R UNI/BI 02/09/2012 FEMORAL ANGIOGRAM performed by Charity Ocampo MD at [facility] OR ID NEUROPLASTY &/TRANSPOS MEDIAN NRV CARPAL TUNNE Right 12/14/2016 CARPAL TUNNEL RELEASE performed by Destiny Tyson MD at [facility] OR ID TEAEC W/WO PATCH GRAFT COMMON FEMORAL 02/09/2012 FEMORAL ENDARTERECTOMY performed by Charity Ocampo MD at [facility] OR ID UNLISTED PROCEDURE VASCULAR SURGERY 02/09/2012 FEMORAL ARTERY OTHER OPERATION performed by Charity Ocampo MD at [facility] OR Current medications: Prior to Admission Medications Prescriptions Last Dose Informant Patient Reported? Taking? HYDROcodone-acetaminophen (NORCO) 5-325 mg tablet No No Sig: Take 1 Tablet by mouth every 6 hours as needed for Pain, Moderate. Max Daily Amount: 4 Tablets LANSOPRAZOLE, BULK, MISC Yes No Sig: Take 20 mg by mouth 2 times daily. NIFEdipine (PROCARDIA XL) 30 mg Extended Release 24 hour tablet No No Sig: Take 1 tablet by mouth once daily VITAMIN A ORAL Yes No Sig: Take 1 Tablet by mouth 2 times daily. acetaminophen (TYLENOL) 500 mg tablet Yes No Sig: Take 500 mg by mouth 2 times daily. albuterol sulfate 90 mcg/Actuation inhaler Yes No Sig: Take 2 Puffs by inhalation every 6 hours as needed. allopurinoL (ZYLOPRIM) 300 mg tablet Yes No Sig: Take 300 mg by mouth daily. ascorbic acid, vitamin C, (VITAMIN C) 1,000 mg Tablet Yes No Sig: Take 1,000 mg by mouth 2 times daily. aspirin (ECOTRIN EC) 81 mg Tablet, Delayed Release (E.C.) Yes No Sig: Take 81 mg by mouth daily. budesonide-formoteroL (SYMBICORT) 160-4.5 mcg/actuation HFA Aerosol Inhaler Yes No Sig: Take 2 Puffs by inhalation daily. cholecalciferol, vitamin D3, (VITAMIN D3 ORAL) Yes No Sig: Take 1 Tablet by mouth daily. cranberry fruit extract (cranberry extract) 500 mg Tablet Yes No Sig: Take by mouth 2 times daily. diphenhydrAMINE-acetaminophen (TYLENOL PM) 25-500 mg Tablet Yes No Sig: Take 2 Tablets by mouth 2 times daily. Patient taking differently: Take 2 Tablets by mouth 2 times daily. PRN elderberry fruit (ELDERBERRY ORAL) Yes No Sig: Take by mouth daily. ferrous sulfate 325 mg (65 mg iron) tablet Yes No Sig: Take 1 Tablet by mouth daily. fexofenadine (KOKO) 60 mg tablet Yes No Sig: Take 60 mg by mouth daily. fluticasone propionate (FLONASE) 50 mcg/spray [place], Suspension nasal inhaler Yes No Sig: USE 1 SPRAY(S) IN EACH NOSTRIL TWICE DAILY NEEDED FOR ALLERGIES furosemide (LASIX) 40 mg tablet No No Sig: Take 1 tablet by mouth once daily gabapentin (NEURONTIN) 300 mg capsule Yes No Sig: Take 300 mg by mouth daily. hydrALAZINE (APRESOLINE) 25 mg tablet No No Sig: Take 1 Tablet (25 mg) by mouth 3 times daily. indomethacin (INDOCIN) 25 mg capsule Yes No Sig: TAKE 1 CAPSULE BY MOUTH THREE TIMES DAILY NEEDED FOR GOUT isosorbide mononitrate (IMDUR) 30 mg Extended Release 24 hour tablet No No Sig: take 1 tablet by mouth once daily in the morning metoprolol succinate (TOPROL XL) 25 mg Extended Release 24 hour tablet No No Sig: Take 1 tablet by mouth once daily nitroglycerin (NITROSTAT) 0.4 mg Tablet, Sublingual No No Sig: Place 1 Tablet (0.4 mg) under tongue every 5 minutes as needed for Chest Pain. potassium CHLORIDE (K-DUR,KLOR-CON M20) 20 mEq Extended Release tablet No No Sig: Take 1 tablet by mouth once daily predniSONE (DELTASONE) 5 mg tablet Yes No Sig: Take 1 Tablet by mouth daily. rivaroxaban (Xarelto) 15 mg Tablet No No Sig: Take 1 Tablet (15 mg) by mouth daily with supper. rosuvastatin (CRESTOR) 20 mg tablet No No Sig: TAKE 1 TABLET BY MOUTH ONCE DAILY AT BEDTIME sulfaSALAzine (AZULFIDINE) 500 mg tablet Yes No Sig: Take 500 mg by mouth daily. tamsulosin (FLOMAX) 0.4 mg capsule No No Sig: Take 0.4 mg by mouth daily. vit B complex 100 no.2/herbs (VITAMIN B COMPLEX 100 2-HERBS ORAL) Yes No Sig: Take 1 Tablet by mouth 2 times daily. Facility-Administered Medications: None Allergies and intolerances: Allergies Allergen Reactions Adhesive Rash Dermabond allergy Iodine Rash Meperidine Rash Morphine Rash Povidone-Iodine Rash Social history: Social History Socioeconomic History Marital status: Spouse name: Not on file Number of children: Not on file Years of education: Not on file Highest education level: Not on file Occupational History Not on file Tobacco Use Smoking status: Former Current packs/day: 0.00 Types: Cigarettes Quit date: 06/01/1986 Years since quittin.8 Smokeless tobacco: Never Vaping Use Vaping status: Never Used Substance and Sexual Activity Alcohol use: Yes Alcohol/week: 14.0 standard drinks of alcohol Drug use: No Sexual activity: Not on file Other Topics Concern Not on file Social History Narrative Not on file Social Drivers of Health Food Insecurity: Not on file (03/11/2025) Transportation Needs: No Transportation Needs (03/11/2025) Transportation Needs Patient needs follow up regarding:: 1 Feeling Safe: Not At Risk (03/10/2025) Feeling Safe Patient has indicated abuse: : No Housing Stability: Low Risk (07/05/2023) Housing Stability Patient needs follow up regarding:: No concerns Family History: Family History Problem Relation Name Age of Onset Unknown Daughter Unknown Son Unknown Daughter Heart Disease Mother Heart Disease Father Heart Disease Brother Unknown Daughter Other Brother Unknown Son Unknown Daughter Lung Cancer Sister ROS: As per HPI OBJECTIVE: Temp (24hrs), Av.9 ??F (37.2 ??C), Min:98.9 ??F (37.2 ??C), Max:98.9 ??F (37.2 ??C) BP (!) 149/64 Pulse (!) 56 Temp 98.9 ??F (37.2 ??C) (Oral) Resp 17 Ht 5' 9 (1.753 m) Wt 74.8 kg (165 lb) SpO2 91% BMI 24.37 kg/m?? No intake or output data in the 24 hours ending 03/11/25 0115 Last documented weight: Weight: 74.8 kg (165 lb) (03/11/25 0032) EXAM: General: Lying in bed, not in distress Mental exam: Alert oriented x 3 Neurologic: Grossly normal HEENT: Normocephalic Lungs: Normal respiratory effort Heart: Irregular rhythm Abdomen: Nondistended Extremities: No edema Lab Data: Recent Labs 03/10/25 2202 WBC 6.8 HGB 10.1* HCT 32.7* PLT 161 Recent Labs 03/10/25 2202 NA 137 K 3.8 CL 101 CO2 23 CA 9.3 BUN 24* CREAT 1.31* GLUCOSE 86 Recent Labs 03/10/25 2202 TOTALPROTEIN 6.8 ALBUMIN 4.1 BILITOTAL 0.7 ALKPHOS 72 AST 27 ALT 12 Recent Labs 03/10/25 2202 INR 1.1 PT 14.5 No results for input(s): CPK , CKMB , TROPONIN in the last 72 hours. 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 ASSESSMENT AND PLAN: Acute subdural hemorrhage CT head showing acute left subdural hematoma measuring 6 mm, no mass effect or midline shift Neurosurgery consulted Neurochecks Hold Xarelto and aspirin Xarelto was reversed with adnexa at outside facility Paroxysmal atrial fibrillation Continue Toprol-XL, hold Xarelto CKD 3 Monitor renal function Gout Continue allopurinol Asthma Stable Continue Breo and as needed albuterol Diastolic CHF Stable Continue Lasix GERD Continue Protonix SSS status post PPM Stable Hypertension Continue hydralazine and Procardia ASHD Hyperlipidemia PAD PVD Continue Crestor, hold aspirin DVT Pharmacologic Prophylaxis: SCDs only Current diet : DIET CARDIAC Low Cholesterol (AHA),; 2GM Sodium (Low), Code Status: Full Code Admission status - admit to neuro telemetry This patient is admitted as inpatient. I have a reasonable expectation that this patient requires hospital care that crosses 2 midnights supported by complex medical factors documented in the medicalrecord. On the day of the visit, I spent 78 minutes providing care to this patient including Preparing to see the patient, Obtaining and/or reviewing separately obtained history, Performing a medically appropriate examination and/or evaluation, Counseling and educating the patient/family/caregiver, Ordering medications, tests or procedures, Documenting clinical information in the medical record, Referring and communication with other health childcare provider (not separately reported), Independently interpreting results and communicating results to the patient/family/caregiver (not separately reported), and Care coordination (not separately reported). Olga Sheehan MD 03/11/2025 1:15 AM documented in this encounter Consult Notes * Fadia Chanel - 03/12/2025 3:19 PM CDTAssociated Order(s): IP CONSULT TO PASTORAL SERVICES Completed Spiritual Care consult order Please refer to note written by Ch. Jacob Moreno on 03/11/25 * Jacob Moreno - 03/11/2025 8:49 PM CDT Reason for Visit: Referral Patient spiritual issues identified summary of patient???s most significant issue(s): No needs expressed at this time, declined prayer,as he plans to be released tomorrow. Family: Mentioned a loving Charley/values: Mandaeism Needs/hopes resources: Made aware of care team, talked about charley, and mentioned his coming release. Spiritual interventions Utilized presence and active listening to explore feelings, stressors, perceptions, questions/concerns, and coping patterns of Juan M BILINGUAL STUDENT TUTOR???S ASSESSMENT OF PATIENT???S LEVEL OF DISTRESS: none Outcomes of Care Offer prayer and support Diagnostics Tech Plan Spiritual Care Services remain available for referral PRN. Recommendations for Healthcare Team As spiritual needs/distress arise, please contact Spiritual Care Services. We will follow up as needed. Thank you for this referral. Diagnostics Tech Jacob Moreno Spiritual Care Team [phone] Cosigned by Fern Hardin at 03/13/2025 12:28 PM CDT * Jacob Moreno - 03/11/2025 3:35 PM CDT Attempted to Visit Patient Juan M was Sleeping. Will follow up at a later time. Chaplain Jacob Moreno Spiritual Care Team [phone] Cosigned by Fern Hardin at 03/13/2025 11:34 AM CDT * Sridevi De La Paz PA - 03/11/2025 11:52 AM CDTAssociated Order(s): IP CONSULT TO NEUROSURGERY Subjective: Patient is a 84 y.o. right handed male [facility] Patient's symptoms include headache Onset of symptoms was gradual with gradually worsening course since that time. Patient is on xarelto for PVD. Patient had a fall early in week. Progressive headache since that time. Not focal weakness. 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 Past Medical History: Diagnosis Date Anxiety Arthritis Chest pain Colon cancer (CMS/HCC) 08/07/2021 stage 1, removed. Congestive heart failure (CMS/HCC) Coronary artery disease CRI (chronic renal insufficiency) Dyspnea on exertion Emphysema of lung (CMS/HCC) GERD (gastroesophageal reflux disease) Injury of back ruptured Injury of face and neck ruptured disc PVD (peripheral vascular disease) Unspecified disorder of lipoid metabolism Unspecified essential hypertension Past Surgical History: Procedure Laterality Date [facility] ANGIOGRAPHY EXTREMITY UNILATERAL RS&I 02/09/2012 LEG ARTERIOGRAM performed by Charity Ocampo MD at [facility] OR HX HEART CATHETERIZATION HX HERNIA INGUINAL REPAIR Left 03/06/2015 HERNIA INGUINAL REPAIR performed by Raymond Matias MD at [facility] [place] HX HIP REPLACEMENT Right HX PACEMAKER PLACEMENT HX PTCA 2 coronary stents. HX SURGICAL OTHER Left 2017 Leg, stent placement HX SURGICAL OTHER Left 03/06/2015 MESH PLACEMENT performed by Raymond Matias MD at [facility] [place] HX VASCULAR SURGERY Right 07/07/2019 right leg HX VASCULAR SURGERY Left 2017 femoral ID ARTHROPLASTY GLENOHUMERAL JOINT TOTAL SHOULDER Right 01/17/2020 SHOULDER ARTHROPLASTY TOTAL REPLACEMENT performed by Ian Perkins MD at [facility] OR ID ARTHROPLASTY GLENOHUMERAL JOINT TOTAL SHOULDER Left 04/25/2019 SHOULDER ARTHROPLASTY TOTAL REPLACEMENT performed by Ian Perkins MD at [facility] OR ID FLUORESCEIN ANGRPH W/MULTIFRAME IMG I&R UNI/BI 02/09/2012 FEMORAL ANGIOGRAM performed by Charity Ocampo MD at [facility] OR ID NEUROPLASTY &/TRANSPOS MEDIAN NRV CARPAL TUNNE Right 12/14/2016 CARPAL TUNNEL RELEASE performed by Destiny Tyson MD at [facility] OR ID TEAEC W/WO PATCH GRAFT COMMON FEMORAL 02/09/2012 FEMORAL ENDARTERECTOMY performed by Charity Ocampo MD at [facility] OR ID UNLISTED PROCEDURE VASCULAR SURGERY 02/09/2012 FEMORAL ARTERY OTHER OPERATION performed by Charity Ocampo MD at [facility] OR Medications Prior to Admission Medication Sig Dispense Refill Last Dose/Taking diphenhydrAMINE-acetaminophen (TYLENOL PM) 25-500 mg Tablet Take 2 Tablets by mouth 2 times daily. (Patient taking differently: Take 2 Tablets by mouth 2 times daily. PRN) nitroglycerin (NITROSTAT) 0.4 mg Tablet, Sublingual Place 1 Tablet (0.4 mg) under tongue every 5 minutes as needed for Chest Pain. 25 Tablet 6 potassium CHLORIDE (K-DUR,KLOR-CON M20) 20 mEq Extended Release tablet Take 1 tablet by mouth once daily 90 Tablet 0 NIFEdipine (PROCARDIA XL) 30 mg Extended Release 24 hour tablet Take 1 tablet by mouth once daily 90 Tablet 3 metoprolol succinate (TOPROL XL) 25 mg Extended Release 24 hour tablet Take 1 tablet by mouth once daily 90 Tablet 3 rivaroxaban (Xarelto) 15 mg Tablet Take 1 Tablet (15 mg) by mouth daily with supper. 90 Tablet 3 rosuvastatin (CRESTOR) 20 mg tablet TAKE 1 TABLET BY MOUTH ONCE DAILY AT BEDTIME 90 Tablet 3 hydrALAZINE (APRESOLINE) 25 mg tablet Take 1 Tablet (25 mg) by mouth 3 times daily. 270 Tablet 3 isosorbide mononitrate (IMDUR) 30 mg Extended Release 24 hour tablet take 1 tablet by mouth once daily in the morning 90 Tablet 3 furosemide (LASIX) 40 mg tablet Take 1 tablet by mouth once daily 90 Tablet 3 allopurinoL (ZYLOPRIM) 300 mg tablet Take 300 mg by mouth daily. ascorbic acid, vitamin C, (VITAMIN C) 1,000 mg Tablet Take 1,000 mg by mouth 2 times daily. ferrous sulfate 325 mg (65 mg iron) tablet Take 1 Tablet by mouth daily. fluticasone propionate (FLONASE) 50 mcg/spray [place], Suspension nasal inhaler USE 1 SPRAY(S) IN EACH NOSTRIL TWICE DAILY NEEDED FOR ALLERGIES predniSONE (DELTASONE) 5 mg tablet Take 1 Tablet by mouth daily. HYDROcodone-acetaminophen (NORCO) 5-325 mg tablet Take 1 Tablet by mouth every 6 hours as needed for Pain, Moderate. Max Daily Amount: 4 Tablets 20 Tablet 0 acetaminophen (TYLENOL) 500 mg tablet Take 500 mg by mouth 2 times daily. fexofenadine (KOKO) 60 mg tablet Take 60 mg by mouth daily. albuterol sulfate 90 mcg/Actuation inhaler Take 2 Puffs by inhalation every 6 hours as needed. budesonide-formoteroL (SYMBICORT) 160-4.5 mcg/actuation HFA Aerosol Inhaler Take 2 Puffs by inhalation daily. sulfaSALAzine (AZULFIDINE) 500 mg tablet Take 500 mg by mouth daily. gabapentin (NEURONTIN) 300 mg capsule Take 300 mg by mouth daily. indomethacin (INDOCIN) 25 mg capsule TAKE 1 CAPSULE BY MOUTH THREE TIMES DAILY NEEDED FOR GOUT VITAMIN A ORAL Take 1 Tablet by mouth 2 times daily. cranberry fruit extract (cranberry extract) 500 mg Tablet Take by mouth 2 times daily. vit B complex 100 no.2/herbs (VITAMIN B COMPLEX 100 2-HERBS ORAL) Take 1 Tablet by mouth 2 times daily. LANSOPRAZOLE, BULK, MISC Take 20 mg by mouth 2 times daily. elderberry fruit (ELDERBERRY ORAL) Take by mouth daily. aspirin (ECOTRIN EC) 81 mg Tablet, Delayed Release (E.C.) Take 81 mg by mouth daily. cholecalciferol, vitamin D3, (VITAMIN D3 ORAL) Take 1 Tablet by mouth daily. tamsulosin (FLOMAX) 0.4 mg capsule Take 0.4 mg by mouth daily. Allergies Allergen Reactions Adhesive Rash Dermabond allergy Iodine Rash Meperidine Rash Morphine Rash Povidone-Iodine Rash Social History Tobacco Use Smoking status: Former Current packs/day: 0.00 Types: Cigarettes Quit date: 06/01/1986 Years since quittin.8 Smokeless tobacco: Never Substance Use Topics Alcohol use: Yes Alcohol/week: 14.0 standard drinks of alcohol Family History Problem Relation Name Age of Onset Unknown Daughter Unknown Son Unknown Daughter Heart Disease Mother Heart Disease Father Heart Disease Brother Unknown Daughter Other Brother Unknown Son Unknown Daughter Lung Cancer Sister Family History reviewed in the EHR. REVIEW OF SYSTEMS: Review of Systems - General ROS: negative for weight changes, fever HEALTH MAINTENENCE/PCP: Kalani Guillaume MD Objective: Physical Exam: CONSTITUTIONAL: The patient is a normal appearing male in no apparent distress. GENERAL: WNWD, of stated age and in no acute distress. HEENT: Normocephalic, atraumatic with normal facial symmetry. Pupils equal, round, reactive to light, extraocular muscles intact bilaterally. CARDIAC: Regular rate and rhythm without audible murmur. CHEST: Clear to auscultation bilaterally. PSYCH: The patient is alert and oriented to person, place and time. NEUROLOGICAL: exam reveals alert, oriented, normal speech, no focal findings or movement disorder noted, neck supple without rigidity, cranial nerves II through XII intact, DTR's normal and symmetric, motor and sensory grossly normal bilaterally, normal muscle tone, no tremors, strength 5/5. 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 Plan: Patient s/p fall with SDH Xarelto has been held. Reversed in [facility]. Neuro intact No shift Monitor neuro status closely Repeat head CT tomorrow am. Continue to hold anticoagulation Cosigned by Jennifer Chong MD at 03/12/2025 1:23 PM CDT documented in this encounter ED Notes * Shankar Kasper GN - 03/10/2025 11:36 PM CDT Report called to RN on 6C * Shankar Kasper GN - 03/10/2025 9:37 PM CDT Juan M Mabry is a 84 y.o. male who presents to the [facility] via EMS with complaints of a subdural hematoma. EMS states pt had a fall on Wednesday and has had the worst headache of his life since then.Pt was diagnosed with a subdural hematoma with a 1mm shift. Pt takes xeralto. Pt given 400 mg of andexa en route. Pt has a cardiac hx and has a pacemaker. Patient is oriented to person, place, time, and general circumstances with behavior appropriate to circumstance. Airway patent and self-maintained and respirations are WDL, with no respiratory symptoms. Perfusion is within normal limits for age. Skin color is normal for ethnicity, warm, dry and intact. Bed low and locked, call light within reach and encouraged to use, comfort measures offered. Patient denies needs at this time, updated on plan of care, verbalized understanding. * Washington Wick DO - 03/10/2025 9:33 PM CDT 03/11/25 2:51 AM HISTORY OF PRESENT ILLNESS History of Present Illness Patient is a well-appearing 84-year-old male sent from outside hospital for subdural hematoma foundon CT scan of the head. He states that roughly 6 to 7 days prior to this, he fell backward strikinghis head and has had a headache ever since then. He takes Xarelto for history of DVT. Before being transferred here, he received adnexxa reversal agent for Xarelto. He has had no seizure activity andis alert and oriented at baseline. PAST MEDICAL HISTORY REVIEWED MEDICAL: Patient has a past medical history of Anxiety, Arthritis, Chest pain, Colon cancer ([facility]) (08/07/2021), Congestive heart failure ([facility]), Coronary artery disease, CRI (chronic renal insufficiency), Dyspnea on exertion, Emphysema of lung ([facility]), GERD (gastroesophageal reflux disease), Injuryof back, Injury of face and neck, PVD (peripheral vascular disease), Unspecified disorder of lipoidmetabolism, and Unspecified essential hypertension. SURGICAL: Patient has a past surgical history that includes heart catheterization; pr arthroplasty glenohumeral joint total shoulder (Right, 01/17/2020); pr unlisted procedure vascular surgery (02/09/2012); vascular surgery (Right, 07/07/2019); pr teaec w/wo patch graft common femoral (02/09/2012); vascular surgery (Left, 2017); pr arthroplasty glenohumeral joint total shoulder (Left, 04/25/2019); surgical other (Left, 2017); hip replacement (Right); pr neuroplasty &/transpos median nrv carpal tunne (Right, 12/14/2016); surgical other (Left, 03/06/2015); hernia inguinal repair (Left, 03/06/2015); ptca; chgangiography extremity unilateral rs&i (02/09/2012); pr fluorescein angrph w/multiframe img i&r uni/bi (02/09/2012); and pacemaker placement. ALLERGIES Adhesive, Iodine, Meperidine, Morphine, and Povidone-iodine PHYSICAL EXAM INITIAL VS BP: (!) 155/84 (03/10/252144), Heart Rate: 77 bpm (03/10/252135), Resp: 17 (03/10/252135), Pulse: 77 (03/10/252135), Temp: 98.9 ??F (37.2 ??C) (03/10/252135), Temp src: Oral (03/10/252135), SpO2: 92 % (03/10/252135), Height: 5' 9 (175.3 cm) (03/11/2531), Weight: 73 kg (161 lb) (03/10/252135), BMI (Calculated): 24.34 (03/11/2531) No LMP for male patient. Blood pressure (!) 147/82, pulse (!) 52, temperature 97.6 ??F (36.4 ??C), temperature source Temporal, resp. rate 18, height 5' 9 (1.753 m), weight 74.8 kg (165 lb), SpO2 93%. Physical Exam Physical Exam General Appearance: Alert and oriented. HEENT: Moist mucous membranes. No pharyngeal erythema or exudate. No scleral icterus. Conjunctiva normal. Pupils are equal round and reactive to light. Neck: No cervical spinal tenderness. Normal range of motion of the neck. Respiratory: Respiratory rate is 17, oxygen saturation is 92%. Cardiovascular: Heart rate is 77. Gastrointestinal: No distention. The abdomen is soft. There is no abdominal tenderness or guarding or rebound. Genitourinary: Lymphatic: Back Musculoskeletal: Extremities: Skin: Warm and dry. Neurological: The patient is alert and oriented x 4. Mental status is at baseline. No motor or sensory deficits. Psychiatric: Normal mood and behavior. Other observations: DIAGNOSTICS LAB: CBC WITH DIFFERENTIAL - Abnormal Result Value WBC 6.8 RBC 3.48 (*) HEMOGLOBIN 10.1 (*) HEMATOCRIT 32.7 (*) MCV 94.0 MCH 29.0 MCHC 30.9 PLATELETS 161 MPV 9.9 RDW 17.7 (*) RDW-STDEV 60.9 (*) NEUTROPHILS 77 (*) LYMPHOCYTES 15 (*) MONOCYTES 7 EOSINOPHILS 1 BASOPHILS 0 IMMATURE GRANULOCYTES 1 NEUTROPHIL ABSOLUTE 5.25 LYMPHOCYTE ABSOLUTE 1.00 (*) MONOCYTE ABSOLUTE 0.46 EOSINOPHIL ABSOLUTE 0.04 BASOPHILS ABSOLUTE 0.01 IMMATURE GRANULOCYTES ABSOLUTE 0.06 SMEAR REVIEWED: NN - No Action Needed COMPREHENSIVE METABOLIC PANEL - Abnormal SODIUM 137 POTASSIUM 3.8 CHLORIDE 101 CO2 23 CALCIUM 9.3 BUN 24 (*) CREATININE 1.31 (*) GLUCOSE 86 TOTAL PROTEIN 6.8 ALBUMIN 4.1 BILIRUBIN TOTAL 0.7 ALKALINE PHOSPHATASE 72 AST 27 ALT 12 GFR 54 ANION GAP 13 PROTIME-INR - Normal PROTIME 14.5 INR 1.1 PTT - Normal PTT 35.0 RADIOLOGY: CT HEAD WO CONTRAST Radiologist Impression IMPRESSION: Acute left subdural hematoma measuring 6 mm. No mass effect or midline shift. Age-appropriate atrophy with mild microvascular ischemic disease. EKG: Results Laboratory Studies White blood cell count is 6.86. Imaging CT scan shows a small acute left subdural hematoma overlying the cerebral convexity with 1 mm of midline shift. CT scan shows a small acute left subdural hematoma along the left frontal and parietal lobes measuring up to 7 mm in thickness, minimal effacement, trace [id number] midline shift of 1 mm, moderate generalized cortical volume loss. CT of the cervical spine showed nothing acute. Results independently interpreted by Washington Wick, DO PROCEDURES Procedures MEDICAL DECISION MAKING AND PLAN OF CARE Assessment & Plan Initial Assessment: 84-year-old male with a gradual onset headache starting last night, extending into neck and shoulders. History of fall last Wednesday, resulting in a small acute left subdural hematoma with 1 mm midlineshift. On Xarelto for anticoagulation due to blood clots in legs. No seizures reported. Differential Diagnosis: Subdural hematoma: History of fall, on Xarelto. Plan: Confirm administration of reversal agent for Xarelto, administer pain medication. Cervical spine injury: CT scan showed no acute findings. Plan: No further action needed. Viral infection: Cough, chest pain when coughing. Plan: Monitor symptoms, no fever or recent illness reported. ED Course: Vital signs stable: Heart rate 77, temperature 98.9, respirs 17, oxygen 92% Pain medication administered CT scan of cervical spine: No acute findings Urinalysis: Negative for infection White blood cell count: 6.86 Temperature on arrival: 100.6 Confirmed administration of reversal agent for Xarelto en route Final Assessment: Administered pain medication for headache. CT scan of cervical spine showed no acute findings. Urinalysis negative for infection. White blood cell count 6.86. Temperature on arrival 100.6. Confirmed administration of reversal agent for Xarelto en route. Clinical Impression: Headache Small acute left subdural hematoma Plan will be to admit to the hospital service with neurosurgical consultation. Patient is agreeableto the plan. ED Course as of 03/11/25 0251 Sat Mar 10, 2025 3884 EKG: [id number] paced rhythm, rate of 74, and frequent intracystic complexes, negative Sgarbossa criteria QTc = 486 [JJ] [address] Sheehan to discuss admission [JJ] ED Course User Index [JJ] Washington Wick, Medical Decision Making Amount and/or Complexity of Data Reviewed Labs: ordered. Radiology: ordered. Risk Prescription drug management. Decision regarding hospitalization. Clinical Scoring & Consults Medications Administered During the ED Stay from 03/10/2025 2134 to 03/11/2025 0015 Date/Time Order Dose Route Action 03/10/2025 2349 CDT acetaminophen (OFIRMEV) 10 mg/mL injection 1,000 mg 1,000 mg IV Started by Another Clinician 03/11/2025 0000 CDT budesonide-formoteroL (SYMBICORT) 160-4.5 mcg/actuation inhaler 2 Puff 2 Puff Inhalation Not Given Current Discharge Medication List CONTINUE these medications which have NOT CHANGED Details diphenhydrAMINE-acetaminophen (TYLENOL PM) 25-500 mg Tablet Take 2 Tablets by mouth 2 times daily. nitroglycerin (NITROSTAT) 0.4 mg Tablet, Sublingual Place 1 Tablet (0.4 mg) under tongue every 5 minutes as needed for Chest Pain. Qty: 25 Tablet, Refills: 6 potassium CHLORIDE (K-DUR,KLOR-CON M20) 20 mEq Extended Release tablet Take 1 tablet by mouth once daily Qty: 90 Tablet, Refills: 0 NIFEdipine (PROCARDIA XL) 30 mg Extended Release 24 hour tablet Take 1 tablet by mouth once daily Qty: 90 Tablet, Refills: 3 metoprolol succinate (TOPROL XL) 25 mg Extended Release 24 hour tablet Take 1 tablet by mouth once daily Qty: 90 Tablet, Refills: 3 Associated Diagnoses: Second degree heart block; Sick sinus syndrome (CMS/HCC); Paroxysmal atrial fibrillation (CMS/HCC) rivaroxaban (Xarelto) 15 mg Tablet Take 1 Tablet (15 mg) by mouth daily with supper. Qty: 90 Tablet, Refills: 3 rosuvastatin (CRESTOR) 20 mg tablet TAKE 1 TABLET BY MOUTH ONCE DAILY AT BEDTIME Qty: 90 Tablet, Refills: 3 Associated Diagnoses: Atherosclerosis of coronary artery, unspecified vessel or lesion type, unspecified whether angina present, unspecified whether [place] or transplanted heart hydrALAZINE (APRESOLINE) 25 mg tablet Take 1 Tablet (25 mg) by mouth 3 times daily. Qty: 270 Tablet, Refills: 3 isosorbide mononitrate (IMDUR) 30 mg Extended Release 24 hour tablet take 1 tablet by mouth once daily in the morning Qty: 90 Tablet, Refills: 3 furosemide (LASIX) 40 mg tablet Take 1 tablet by mouth once daily Qty: 90 Tablet, Refills: 3 allopurinoL (ZYLOPRIM) 300 mg tablet Take 300 mg by mouth daily. ascorbic acid, vitamin C, (VITAMIN C) 1,000 mg Tablet Take 1,000 mg by mouth 2 times daily. ferrous sulfate 325 mg (65 mg iron) tablet Take 1 Tablet by mouth daily. fluticasone propionate (FLONASE) 50 mcg/spray [place], Suspension nasal inhaler USE 1 SPRAY(S) IN EACH NOSTRIL TWICE DAILY NEEDED FOR ALLERGIES predniSONE (DELTASONE) 5 mg tablet Take 1 Tablet by mouth daily. HYDROcodone-acetaminophen (NORCO) 5-325 mg tablet Take 1 Tablet by mouth every 6 hours as needed for Pain, Moderate. Max Daily Amount: 4 Tablets Qty: 20 Tablet, Refills: 0 Associated Diagnoses: Biventricular ICD (implantable cardioverter-defibrillator) in place acetaminophen (TYLENOL) 500 mg tablet Take 500 mg by mouth 2 times daily. fexofenadine (KOKO) 60 mg tablet Take 60 mg by mouth daily. albuterol sulfate 90 mcg/Actuation inhaler Take 2 Puffs by inhalation every 6 hours as needed. budesonide-formoteroL (SYMBICORT) 160-4.5 mcg/actuation HFA Aerosol Inhaler Take 2 Puffs by inhalation daily. sulfaSALAzine (AZULFIDINE) 500 mg tablet Take 500 mg by mouth daily. gabapentin (NEURONTIN) 300 mg capsule Take 300 mg by mouth daily. indomethacin (INDOCIN) 25 mg capsule TAKE 1 CAPSULE BY MOUTH THREE TIMES DAILY NEEDED FOR GOUT VITAMIN A ORAL Take 1 Tablet by mouth 2 times daily. cranberry fruit extract (cranberry extract) 500 mg Tablet Take by mouth 2 times daily. vit B complex 100 no.2/herbs (VITAMIN B COMPLEX 100 2-HERBS ORAL) Take 1 Tablet by mouth 2 times daily. LANSOPRAZOLE, BULK, MISC Take 20 mg by mouth 2 times daily. elderberry fruit (ELDERBERRY ORAL) Take by mouth daily. aspirin (ECOTRIN EC) 81 mg Tablet, Delayed Release (E.C.) Take 81 mg by mouth daily. cholecalciferol, vitamin D3, (VITAMIN D3 ORAL) Take 1 Tablet by mouth daily. tamsulosin (FLOMAX) 0.4 mg capsule Take 0.4 mg by mouth daily. LAST VS BP: (!) 147/82 (03/11/25114), Heart Rate: 74 bpm (03/10/25 2330), Resp: 18 (03/11/25114), Pulse: (!) 52 (03/11/25114), Temp: 97.6 ??F (36.4 ??C) (03/11/25114), Temp src: Temporal (03/11/25114), SpO2: 93 % (03/11/25114) CLINICAL IMPRESSION Diagnosis Diagnosis Comment Added By Time Added Subdural hematoma (CMS/HCC) [S06.5XAA] Washington Wick DO 03/10/2025 11:14 PM DISPOSITION, EDUCATION AND MEDICATION RECONCILIATION Medications reconciled. See after visit summary for patient education on discharged patients. 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 CM will continue to follow and assist with DC planning as needed. Plan Discharge To: Home with family assist (03/11/251137) Plan Discharge To - Alternate: Home or Self Care (03/11/251137) Preferred Pharmacy: [facility] [address] [place] [address] [facility] Patient / Family Communications: Discharge Plan Agreed Upon: Patient (03/11/251137) India Mcgrath Outcome: Progressing * Care Plan - Susanne Roberts RN - 03/12/2025 5:56 AM CDT Shift Summary HYDROcodone-acetaminophen was administered for moderate pain, followed by documentation of comfort and alertness. Vitals remained stable, with blood pressure slightly decreased and temperature within normal limitsthroughout the shift. Patient was consistently positioned supine for assessments, and rounding notes confirmed call button accessibility and quiet rest. No documentation of falls, injuries, or infection-related concerns was noted during the shift. Patient maintained comfort and safety, with no significant changes in status during the shift. Infection Risk/Actual: Infection prevention, control, or resolution by discharge: Temperature remained stable and within normal range throughout the shift, and no abnormal findings were documented inrelation to infection. Safety/Fall: Absence of fall, injury, harm during hospitalization: Patient was supine during blood pressure checks, call button remained in reach, and rounding notes indicated patient was resting quietly with no documentation of falls or injuries. * Care Plan - Charisse Self RN - 03/11/2025 5:15 PM CDT Shift Summary HYDROcodone-acetaminophen was administered three times for moderate pain, resulting in periods of verbalized relief. EKG 12-LEAD was performed in [facility] Department 11, with documentation of a biventricular pacemaker and abnormal ECG findings. Safety checks and rounding tasks were completed regularly, with supervision provided during ambulation and no falls documented. Intake improved from 0% in the morning to 70% by early afternoon, and pain was managed with medication interventions as needed. Overall, comfort and safety goals were supported throughout the shift, with ongoing monitoring and interventions as appropriate. Verbalizes/displays acceptable comfort level or baseline comfort level: Pain fluctuated throughout the shift, with periods of relief following administration of HYDROcodone-acetaminophen and single medication modality interventions, though pain recurred intermittently and was managed as needed. Safety/Fall: Absence of fall, injury, harm during hospitalization: Supervision was maintained during ambulation and safety checks were consistently completed throughout the shift, with no documentation of falls or injuries. * Care Plan - Anju Brody, MOCCASIN SEWER - 03/11/2025 11:38 AM CDT Problem: Discharge Planning Goal: Identify discharge needs upon admission and through discharge Description: Outcome: Progressing Care Management Initial Assessment Initial Discharge Planning Assessment completed. Discussed Care Management's role and Discharge planning. Plan Discharge To: Home with family assist Plan Discharge To - Alternate: Home or Self Care Does the patient have family and/or a caregiver that is willing, able and available to assist if needed? Yes - Name/Relation:spouse Jose Comments: CM met with pt at bedside to complete initial assessment. Pt states that he lives with his spouse in [place], [place]. 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 Patient Discharge Planning Goal: home Patient will potentially discharge to a SNF/NH? No Care Management visited with: patient via in person. Prior to admission, patient resides at: own home. Patient resides in a 1 story home with 3 stairs to enter. Patient's bedroom and bathroom are located on the same floor. Prior to admission, living arrangements: spouse. Prior to admission, patient's functional level:requires assistance; uses standard walker for mobility; needs assistance with iADLs: meal preparation, transportation, shopping, running errands, medication management, housekeeping, and managing finances Community Ambulator: yes Prior to admission, the patient has the following DME? Yes shower chair, standard walker, and othergolf cart Services in the home/community: none Serviced by NA Receives hemodialysis? No Emergency contact(s): Extended Emergency Contact Information Primary Emergency Contact: JOSE MABRY Address: [address] [place] [address] [address] [place] [address] [facility] [place] Relation: Spouse Secondary Emergency Contact: Esequiel Norton [place] [facility] [place] Relation: Son Prescription coverage: yes Preferred Pharmacy verified: [facility] - [place], [place] - [address] [facility] Insurance coverage verified: Payor: [employer] MEDICARE ADVANTAGE / Plan: [employer] PPO MCR / Product Type: PPO / Secondary Insurance:N/A Medicaid Status: NA Has VA Benefits: no Employment Status: retired PCP verified as: Kalani Guillaume MD Patient has not had a stay at an acute care hospital in the last 30 days. Recent Falls?: Last Known Fall: Within the last month Plan for transportation at discharge: home with spouse when medically stable Care Management contact information provided. Care Management will continue to follow and assist asneeded. * ED Bed Hold Comment Note - Ra Parmar RN - 03/10/2025 9:34 PM CDT Bed: 06 Expected date: 03/10/25 Expected time: 9:27 PM Means of arrival: [facility] Comments: SH- 02 [facility] transfer from [address] rightward shift Needs neuro consult Is on xarelto and fell 1 week ago. Received 400 mg andex in route. 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 Procedure visit [facility] Heart [facility] [address] [place] [address] 09/04/2025 2:40 PM CDT Office Visit [facility] [address] [place] [address] Johan Nicholas FNP [address] [place] [id number] 11/15/2025 2:20 PM CDT Office Visit [facility] [address] [place] [phone] Emiliana Ocampo MD [address] [place] [phone] Pattie Brunson NP [address], [address] [place] [phone] Scheduled Referrals Name Type Priority Associated Diagnoses Orde r Schedule AMB REFERRAL TO [facility] Outpatient Referral Routine Subdural hematoma (CMS/HCC) Ordered: 03/13/2025 documented as of this encounter Procedures Procedure Name Priority Date/Time Associated Diagnosis Comments TELEMETRY REPORT 03/14/2025 3:[address] HEAD WO CONTRAST Routine 03/13/2025 7 [address] HEAD WO CONTRAST Pending Discharge 03/12/2025 9:53 AM CDT CBC WITH DIFFERENTIAL Routine 03/11/2025 2:18 AM CDT BASIC METABOLIC PANEL Routine 03/11/2025 2:[address] HEAD WO CONTRAST Stat 03/10/2025 1 1:02 PM CDT CBC WITH DIFFERENTIAL Stat 03/10/2025 10:02 PM CDT PTT Stat 03/10/2025 10:02 PM CDT PROTIME-INR Stat 03/10/2025 10:02 PM CDT COMPREHENSIVE METABOLIC PANEL Stat 03/10/2025 10:02 PM CDT EKG 12-LEAD Stat 03/10/2025 9:46 PM CDT documented in this encounter Results * TELEMETRY REPORT (03/14/2025 3:08 PM CDT) us Provider Scanning ECG ORDERABLES Final Result * CT HEAD WO CONTRAST (03/13/2025 7:15 AM CDT) Anatomical Region Laterality Modality Head Computed Tomogra phy 03/13/2025 7:03 AM CDT Impressions 03/13/2025 7:49 AM CDT IMPRESSION: Unchanged subdural hematoma along the left cerebral convexity compared with 03/12/2025. No new abnormality. Narrative 03/13/2025 7:49 AM CDT Exam: CT HEAD WO CONTRAST Date/Time of Exam: 03/13/2025 7:15 AM Reason For Exam: Subdural hematoma, sdh. Diagnosis: Subdural hematoma (CMS/HCC). Technique: CT of the head was performed without the administration of intravenous contrast. Findings: Subdural hematoma along the left cerebral convexity has not significantly changed from 03/12/2025. There is no new hemorrhage since the previous exam. No evidence of acute infarct or hydrocephalus. No brain herniation. Unchanged opacification of the right sphenoid sinus. Mastoids are clear. Procedure Note Raymond West MD - 03/13/2025 Exam: CT HEAD WO CONTRAST Date/Time of Exam: 03/13/2025 7:15 AM Reason For Exam: Subdural hematoma, sdh. Diagnosis: Subdural hematoma (CMS/HCC). Technique: CT of the head was performed without the administration of intravenous contrast. Findings: Subdural hematoma along the left cerebral convexity has not significantly changed from 03/12/2025. There is no new hemorrhage since the previous exam. No evidence of acute infarct or hydrocephalus. No brain herniation. Unchanged opacification of the right sphenoid sinus. Mastoids are clear. IMPRESSION: Unchanged subdural hematoma along the left cerebral convexity compared with 03/12/2025. No new abnormality. us Sridevi LAGOS CT ORDERABLES Final Result * CT HEAD WO CONTRAST (03/12/2025 9:53 AM CDT) Anatomical Region Laterality Modality Head Computed Tomogra phy 03/12/2025 9:46 AM CDT Impressions 03/12/2025 10:10 AM CDT IMPRESSION: Slight increased size left cerebral convexity subdural hematoma, detailed above. 2 mm of rightward midline shift. Narrative 03/12/2025 10:10 AM CDT Exam: CT HEAD WO CONTRAST Date/Time of Exam: 03/12/2025 9:53 AM Reason For Exam: Subdural hematoma, sdh. Diagnosis: Subdural hematoma (CMS/HCC). Technique: CT of the head was performed without the administration of intravenous contrast. Findings: Comparison 03/10/2025. Again seen is the left cerebral convexity mixed attenuation subdural hematoma measuring up to 7 mm. This is slightly increased in size along the left superior frontal region. 2 mm rightward midline shift, increased from previous. No loss of shahid-white matter differentiation. Mild sequela of small vessel ischemic disease. No hydrocephalus. Basal cisterns are patent. No acute osseous abnormality. Mild mucosal thickening within the right sphenoid 1-year-old recess. No mastoid effusion. The orbits are intact. Procedure Note Eligio Kelsey, DO - 03/12/2025 Exam: CT HEAD WO CONTRAST Date/Time of Exam: 03/12/2025 9:53 AM Reason For Exam: Subdural hematoma, sdh. Diagnosis: Subdural hematoma (CMS/HCC). Technique: CT of the head was performed without the administration of intravenous contrast. Findings: Comparison 03/10/2025. Again seen is the left cerebral convexity mixed attenuation subdural hematoma measuring up to 7 mm. This is slightly increased in size along the left superior frontal region. 2 mm rightward midline shift, increased from previous. No loss of shahid-white matter differentiation. Mild sequela of small vessel ischemic disease. No hydrocephalus. Basal cisterns are patent. No acute osseous abnormality. Mild mucosal thickening within the right sphenoid 1-year-old recess. No mastoid effusion. The orbits are intact. IMPRESSION: Slight increased size left cerebral convexity subdural hematoma, detailed above. 2 mm of rightward midline shift. Sridevi LAGOS CT ORDERABLES Final Result * (ABNORMAL) BASIC METABOLIC PANEL (03/11/2025 2:18 AM CDT) SODIUM 138 136 - 145 mmol/L 03/11/2025 3:01 AM [facility] POTASSIUM 3.5 3.5 - 5.1 mmol/L 03/11/2025 3:01 AM [facility] CHLORIDE 102 98 - 107 mmol/L 03/11/2025 3:01 AM [facility] CO2 24 22 - 29 mmol/L 03/11/2025 3:01 AM [facility] CALCIUM 8.9 8.8 - 10.2 mg/dL 03/11/2025 3:01 AM [facility] BUN 23 8 - 23 mg/dL 03/11/2025 3:01 AM [facility] CREATININE 1.36(H) 0.67 - 1.17 mg/dL 03/11/2025 3:01 AM [facility] Comment:The GFR result is no t clinically significant on patients <18 or >70 years of age. GLUCOSE 147(H) 74 - 99 mg/dL 03/11/2025 3:01 AM [facility] GFR 52 mL/min/1. 73 sq meter 03/11/2025 3:01 AM [facility] Comment:eGFR calculated with 2020 CKD-EPI equation. Vegetarian diet, extremely high or low muscle mass, and may affect results. Cystatin C with Glomerular Filtration Rate is a suitable alternative for these patients. ANION GAP 12 9 - 20 mmol/L 03/11/2025 3:01 AM [facility] Blood Venipuncture / Unknown 03/11/2025 2:18 AM CDT 03/11/2025 2:26 AM CDT us Olga Sheehan MD CHEMISTRY ORDERABLES Final Resul t [facility] CLIA # [id number] [address] [address] [place] [address] * (ABNORMAL) CBC WITH DIFFERENTIAL (03/11/2025 2:18 AM CDT) [facility] WBC 6.6 4.8 - 10.8 K/uL 03/11/2025 2:37 AM CDT [facility] RBC 3.46(L) 4.60 - 6.20 M/uL 03/11/2025 2:37 AM CDT [facility] HEMOGLOBIN 10.2(L) 14.0 - 18.0 g/dL 03/11/2025 2:37 AM CDT [facility] HEMATOCRIT 32.6(L) 41.0 - 53.0 % 03/11/2025 2:37 AM CDT [facility] MCV 94.2 84.0 - 103.0 fL 03/11/2025 2:37 AM CDT [facility] MCH 29.5 27.0 - 34.0 pg 03/11/2025 2:37 AM CDT [facility] MCHC 31.3 30.0 - 35.0 g/dL 03/11/2025 2:37 AM CDT [facility] PLATELETS 141 140 - 440 K/uL 03/11/2025 2:37 AM CDT [facility] MPV 9.6 8.9 - 12.8 fL 03/11/2025 2:37 AM CDT [facility] RDW 17.9(H) 11.0 - 14.5 % 03/11/2025 2:37 AM CDT [facility] RDW-STDEV 61.4(H) 37.0 - 54.0 fL 03/11/2025 2:37 AM CDT [facility] NEUTROPHILS 74 42 - 75 % 03/11/2025 2:37 AM CDT [facility] LYMPHOCYTES 15(L) 24 - 44 % 03/11/2025 2:37 AM CDT [facility] MONOCYTES 8 2 - 10 % 03/11/2025 2:37 AM CDT [facility] EOSINOPHILS 2 0 - 7 % 03/11/2025 2:37 AM CDT [facility] BASOPHILS 0 0 - 1 % 03/11/2025 2:37 AM CDT [facility] IMMATURE GRANULOCYTES 1 0 - 2 % 03/11/2025 2:37 AM CDT [facility] NEUTROPHIL ABSOLUTE 4.85 2.00 - 8.00 K/uL 03/11/2025 2:37 AM CDT [facility] LYMPHOCYTE ABSOLUTE 1.00(L) 1.20 - 4.00 K/uL 03/11/2025 2:37 AM CDT [facility] MONOCYTE ABSOLUTE 0.55 0.10 - 0.60 K/uL 03/11/2025 2:37 AM CDT [facility] EOSINOPHIL ABSOLUTE 0.12 0.00 - 0.70 K/uL 03/11/2025 2:37 AM CDT [facility] BASOPHILS ABSOLUTE 0.02 0.00 - 0.20 K/uL 03/11/2025 2:37 AM T [facility] IMMATURE GRANULOCYTES ABSOLUTE 0.04 0.00 - 0.10 K/uL 03/11/2025 2:37 AM T [facility] SMEAR REVIEWED: NN - No Action Needed 03/11/2025 2:37 AM [facility] Blood Venipuncture / Unknown 03/11/2025 2:18 AM CDT 03/11/2025 2:26 AM CDT us Olga Sheehan MD HEMATOLOGY ORDERABLES Final Resu lt [facility] CLIA # [id number] [address] [facility] [place] [address] * CT HEAD WO CONTRAST (03/10/2025 11:02 PM CDT) Anatomical Region Laterality Modality Head Computed Tomogra phy 03/10/2025 11:0 2 PM CDT Impressions 03/10/2025 11:47 PM CDT IMPRESSION: Acute left subdural hematoma measuring 6 mm. No mass effect or midline shift. Age-appropriate atrophy with mild microvascular ischemic disease. Narrative 03/10/2025 11:47 PM CDT EXAM: CT HEAD WO CONTRAST DATE/TIME OF EXAM: 03/10/2025 11:02 PM REASON FOR EXAM: Head trauma, minor (Age >= 65y), known subdural from [facility], no images DIAGNOSIS: See Reason for Exam COMPARISON: None. TECHNIQUE: Axial noncontrast CT images were obtained through the brain. Sagittal and coronal re-formations were subsequently performed. FINDINGS: Brain: Hyperdense fluid collection overlying the left cerebral cortex measuring up to 6 mm. No significant mass effect. No midline shift. Mild periventricular and subcortical white matter hypoattenuation is nonspecific though likely reflects a manifestation of chronic microvascular ischemia. No findings to suggest an evolving acute large vascular territory infarct. Parenchymal volume is within normal limits for patient age; no significant atrophy. Bones/Skull base: No suspicious osseous lesions. No acute findings. Sinuses: Minor opacification of the posterior right ethmoid air cells. Other visualized portions of the paranasal sinuses and mastoid air cells are clear. Additional comments: None. Procedure Note Edwin Murrell MD - 03/10/2025 EXAM: CT HEAD WO CONTRAST DATE/TIME OF EXAM: 03/10/2025 11:02 PM REASON FOR EXAM: Head trauma, minor (Age >= 65y), known subdural from OSH, no images DIAGNOSIS: See Reason for Exam COMPARISON: None. TECHNIQUE: Axial noncontrast CT images were obtained through the brain. Sagittal and coronal re-formations were subsequently performed. FINDINGS: Brain: Hyperdense fluid collection overlying the left cerebral cortex measuring up to 6 mm. No significant mass effect. No midline shift. Mild periventricular and subcortical white matter hypoattenuation is nonspecific though likely reflects a manifestation of chronic microvascular ischemia. No findings to suggest an evolving acute large vascular territory infarct. Parenchymal volume is within normal limits for patient age; no significant atrophy. Bones/Skull base: No suspicious osseous lesions. No acute findings. Sinuses: Minor opacification of the posterior right ethmoid air cells. Other visualized portions of the paranasal sinuses and mastoid air cells are clear. Additional comments: None. IMPRESSION: Acute left subdural hematoma measuring 6 mm. No mass effect or midline shift. Age-appropriate atrophy with mild microvascular ischemic disease. Washington Wick DO CT ORDERABLES Final Res ult * (ABNORMAL) COMPREHENSIVE METABOLIC PANEL (03/10/2025 10:02 PM CDT) SODIUM 137 136 - 145 mmol/L 03/10/2025 10:45 PM CDT [facility] POTASSIUM 3.8 3.5 - 5.1 mmol/L 03/10/2025 10:45 PM CDT [facility] CHLORIDE 101 98 - 107 mmol/L 03/10/2025 10:45 PM CDT [facility] CO2 23 22 - 29 mmol/L 03/10/2025 10:45 PM CDT [facility] CALCIUM 9.3 8.8 - 10.2 mg/dL 03/10/2025 10:45 PM CDT [facility] BUN 24(H) 8 - 23 mg/dL 03/10/2025 10:45 PM CDT [facility] CREATININE 1.31(H) 0.67 - 1.17 mg/dL 03/10/2025 10:45 PM T [facility] Comment:The GFR result is no t clinically significant on patients <18 or >70 years of age. GLUCOSE 86 74 - 99 mg/dL 03/10/2025 10:45 PM CDT [facility] TOTAL PROTEIN 6.8 6.4 - 8.3 g/dL 03/10/2025 10:45 PM CDT [facility] ALBUMIN 4.1 3.5 - 5.2 g/dL 03/10/2025 10:45 PM CDT [facility] BILIRUBIN TOTAL 0.7 0.0 - 1.0 mg/dL 03/10/2025 10:45 PM CDT [facility] ALKALINE PHOSPHATASE 72 40 - 129 U/L 03/10/2025 10:45 PM CDT [facility] AST 27 10 - 50 U/L 03/10/2025 10:45 PM CDT [facility] ALT 12 <=50 U/L 03/10/2025 10:45 PM CDT [facility] GFR 54 mL/min/1. 73 sq meter 03/10/2025 10:45 PM CDT [facility] Comment:eGFR calculated with 2020 CKD-EPI equation. Vegetarian diet, extremely high or low muscle mass, and may affect results. Cystatin C with Glomerular Filtration Rate is a suitable alternative for these patients. ANION GAP 13 9 - 20 mmol/L 03/10/2025 10:45 PM CDT [facility] Blood Venipuncture / Unknown 03/10/2025 10:02 PM CDT 03/10/2025 10:10 PM CDT us Washington Wick DO CHEMISTRY ORDERABLES Siobhan tulio Result [facility] CLIA # [id number] [address] [place] [address] * PTT (03/10/2025 10:02 PM CDT) PTT 35.0 24.8 - 37.2 seconds 03/10/2025 10:30 PM CDT [facility] Blood Venipuncture / Unknown 03/10/2025 10:02 PM CDT 03/10/2025 10:08 PM CDT Narrative [facility] - 03/10/2025 10:30 PM CDT Therapeutic Range: Hi-level PE/DVT heparin protocol 80.1 - 95.0 sec Lo-level PE/DVT heparin protocol 70.1 - 85.0 sec Cardiac Heparin Protocol 70.1 - 100.0 sec Washington Wick DO HEMATOLOGY ORDERABLES Fin al Result Performing Organization Address [facility] Co de Phone Number [facility] CLIA # [id number] [address] [facility] [place] [address] * PROTIME-INR (03/10/2025 10:02 PM CDT) Pathologist [facility] PROTIME 14.5 12.7 - 14.9 Seconds 03/10/2025 10:30 PM CDT [facility] INR 1.1 0.8 - 1.2 03/10/2025 10:30 PM CDT [facility] Blood Venipuncture / Unknown 03/10/2025 10:02 PM CDT 03/10/2025 10:08 PM CDT Narrative [facility] [employer] [facility] - 03/10/2025 10:30 PM CDT Expected Values for INR: DVT/PE Goal INR 2.5; range 2.0 - 3.0 Valve Replacement Tissue Goal INR 2.5; range 2.0 - 3.0 Valve Replacement Mechanical Goal INR 3.0; range 2.5 - 3.5 POST-DE Goal INR 2.5; range 2.0 - 3.0 or Goal INR 3.0; range 2.5 - 3.5 Atrial Fibrillation Goal INR 2.5; range 2.0 - 3.0 Ischemic Stroke Goal INR 2.5; range 2.0 - 3.0 Washington Wick DO HEMATOLOGY ORDERABLES Fin al Result Performing Organization Address [facility]/ZIP Co de Phone Number [facility] CLIA # [id number] [id number] [place], [place] [id number] * (ABNORMAL) CBC WITH DIFFERENTIAL (03/10/2025 10:02 PM CDT) Pathologist [facility] WBC 6.8 4.8 - 10.8 K/uL 03/10/2025 10:29 PM [facility] RBC 3.48(L) 4.60 - 6.20 M/uL 03/10/2025 10:29 PM [facility] HEMOGLOBIN 10.1(L) 14.0 - 18.0 g/dL 03/10/2025 10:29 PM [facility] HEMATOCRIT 32.7(L) 41.0 - 53.0 % 03/10/2025 10:29 PM [facility] MCV 94.0 84.0 - 103.0 fL 03/10/2025 10:29 PM [facility] MCH 29.0 27.0 - 34.0 pg 03/10/2025 10:29 PM [facility] MCHC 30.9 30.0 - 35.0 g/dL 03/10/2025 10:29 PM [facility] PLATELETS 161 140 - 440 K/uL 03/10/2025 10:29 PM [facility] MPV 9.9 8.9 - 12.8 fL 03/10/2025 10:29 PM [facility] RDW 17.7(H) 11.0 - 14.5 % 03/10/2025 10:29 PM [facility] RDW-STDEV 60.9(H) 37.0 - 54.0 fL 03/10/2025 10:29 PM [facility] NEUTROPHILS 77(H) 42 - 75 % 03/10/2025 10:29 PM [facility] LYMPHOCYTES 15(L) 24 - 44 % 03/10/2025 10:29 PM [facility] MONOCYTES 7 2 - 10 % 03/10/2025 10:29 PM [facility] EOSINOPHILS 1 0 - 7 % 03/10/2025 10:29 PM [facility] BASOPHILS 0 0 - 1 % 03/10/2025 10:29 PM [facility] IMMATURE GRANULOCYTES 1 0 - 2 % 03/10/2025 10:29 PM [facility] NEUTROPHIL ABSOLUTE 5.25 2.00 - 8.00 K/uL 03/10/2025 10:29 PM CDT [facility] LYMPHOCYTE ABSOLUTE 1.00(L) 1.20 - 4.00 K/uL 03/10/2025 10:29 PM CDT [facility] MONOCYTE ABSOLUTE 0.46 0.10 - 0.60 K/uL 03/10/2025 10:29 PM CDT [facility] EOSINOPHIL ABSOLUTE 0.04 0.00 - 0.70 K/uL 03/10/2025 10:29 PM CDT [facility] BASOPHILS ABSOLUTE 0.01 0.00 - 0.20 K/uL 03/10/2025 10:29 PM CDT [facility] IMMATURE GRANULOCYTES ABSOLUTE 0.06 0.00 - 0.10 K/uL 03/10/2025 10:29 PM CDT [facility] SMEAR REVIEWED: NN - No Action Needed 03/10/2025 10:29 PM CDT [facility] Blood Venipuncture / Unknown 03/10/2025 10:02 PM CDT 03/10/2025 10:08 PM CDT us Washington Wick DO HEMATOLOGY ORDERABLES Fin al Result [facility] CLIA # [id number] [address] [place] [address] * EKG 12-LEAD (03/10/2025 9:46 PM CDT) 03/10/2025 9:46 PM CDT Narrative INTERFACE SYSTEM - 03/11/2025 1:08 PM CDT [address] [address] Test Date: 2025-03-10 Pat Name: JUAN M MABRY Department: 11 Room: 06 Gender: Male [employer] Lead: [id number] : 1940 Requested By: Order Number: [id number] Reading MD: Maria Guadalupe Chong Measurements Intervals [place] Rate: 74 P: 43 ID: 0 QRS: 250 QRSD: 150 T: 60 QT: 438 QTc: 486 Interpretive Statements Ventricular-paced rhythm with intrinsic complexes Biventricular pacemaker detected Abnormal ECG Electronically Signed On 03-11-2025 13:08:13 CDT by Maria Guadalupe Chong Procedure Note Provider, Historical - 03/11/[address] [address] Test Date: 2025-03-10 Pat Name: JUAN M MABRY Department: 11 Room: 11 17 Gender: Male Big Data Lead: [id number] : 1940 Requested By: Order Number: [id number] Jez VENCES: Maria Guadalupe Chong Measurements Intervals [place] Rate: 74 P: 43 ID: 0 QRS: 250 QRSD: 150 T: 60 QT: 438 QTc: 486 Interpretive Statements Ventricular-paced rhythm with intrinsic complexes Biventricular pacemaker detected Abnormal ECG Electronically Signed On 03-11-2025 13:08:13 CDT by Maria Guadalupe Chong us Protocol [facility] Emergency MD ECG ORDERABLES Final Result Performing Organization Address City/State/[facility] Co de Phone Number INTERFACE SYSTEM Refer to clinic/hospital department documented in this encounter Visit Diagnoses Diagnosis Subdural hematoma (CMS/HCC)- Primary Subdural hemorrhage Subdural hematoma (CMS/HCC) Subdural hemorrhage ASHD (arteriosclerotic heart disease) Coronary atherosclerosis of unspecified type of vessel, [place] or graft Chronic combined systolic (congestive) and diastolic (congestive) heart failure Chronic kidney disease, stage 3 Dyslipidemia Other and unspecified hyperlipidemia Essential hypertension Unspecified essential hypertension Gastroesophageal reflux disease without esophagitis Esophageal reflux 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 PAD (peripheral artery disease) Unspecified disorders of arteries and arterioles SSS (sick sinus syndrome) (CMS/HCC) Sinoatrial node dysfunction Gout Gout, unspecified Peripheral vascular disease Peripheral vascular disease, unspecified Chronic atrial fibrillation (CMS/HCC) Atrial fibrillation Asthma Unspecified asthma documented in this encounter Administered Medications Inactive Administered Medications - up to 3 most recent administrations Medication Order MAR Action Action Date Dose Rate Site acetaminophen (OFIRMEV) 10 mg/mL injection 1,000 mg 1,000 mg, IV, ONE TIME ONLY, 1 dose, On 03/10/25 at 2200, Routine Started by Another Clinician 03/10/2025 11:49 PM CDT 1,000 mg 400 mL/hr allopurinoL (ZYLOPRIM) tablet 300 mg 300 mg, Oral, DAILY, First dose on Wed03/11/25 at 0900, Until Discontinued, Routine, Previous Med: allopurinoL (ZYLOPRIM) 300 mg tablet - Orig Sig - Take 300 mg by mouth daily. Given 03/13/2025 9:42 AM CDT 300 mg Given 03/12/2025 10:09 AM CDT 300 mg Given 03/11/2025 8:10 AM CDT 300 mg dextrose 5 % in water 250 mL flush bag 25 mL 25 mL, IV, SEE ADMIN INSTRUCTIONS, Starting on [facility] 03/10/25 at 2358, Until Wed03/13/25 at 1520, Routine ferrous sulfate tablet 325 mg 325 mg, Oral, DAILY, First dose on Wed03/11/25 at 0900, Until Discontinued, Routine, Previous Med: ferrous sulfate 325 mg (65 mg iron) tablet - Orig Sig - Take 1 Tablet by mouth daily. Given 03/13/2025 9:43 AM CDT 325 mg Given 03/12/2025 9:34 AM CDT 325 mg Given 03/11/2025 8:10 AM CDT 325 mg fluticasone furoate-vilanteroL (BREO ELLIPTA) 200-25 mcg/dose inhaler 1 Puff 1 Puff, Inhalation, DAILY RESPIRATORY, First dose on [place] 03/11/25 at 0800, Until Discontinued, Routine Given 03/13/2025 9:42 AM CDT 1 Puff Given 03/12/2025 10:09 AM CDT 1 Puff Given 03/11/2025 8:10 AM CDT 1 Puff furosemide (LASIX) tablet 40 mg 40 mg, Oral, DAILY, First dose on Wed03/11/25 at 0900, Until Discontinued, Routine, Previous Med: furosemide (LASIX) 40 mg tablet - Orig Sig - Take 1 tablet by mouth once daily Given 03/13/2025 9:43 AM CDT 40 m g Given 03/12/2025 9:34 AM CDT 40 mg Given 03/11/2025 8:11 AM CDT 40 mg gabapentin (NEURONTIN) capsule 300 mg 300 mg, Oral, DAILY, First dose on 03/11/25 at 0900, Until Discontinued, Routine, Previous Med: gabapentin (NEURONTIN) 300 mg capsule - Orig Sig - Take 300 mg by mouth daily. Given 03/13/2025 9:43 AM CDT 300 mg Given 03/12/2025 9:34 AM CDT 300 mg Given 03/11/2025 8:11 AM CDT 300 mg guaiFENesin (ROBITUSSIN) 100 mg/5 mL oral solution 200 mg 200 mg, Oral, EVERY 4 HOURS PRN, Starting on 03/11/25 at 1853, Until Tu03/13/25 at 1520, Cough, Routine Given 03/11/2025 9:13 PM CDT 200 mg hydrALAZINE (APRESOLINE) tablet 25 mg 25 mg, Oral, THREE TIMES DAILY, First dose on 03/11/25 at 0900, Until Discontinued, Routine, Previous Med: hydrALAZINE (APRESOLINE) 25 mg tablet - Orig Sig - Take 1 Tablet (25 mg) by mouth 3 times daily. Given 03/13/2025 9:43 AM CDT 25 mg Given 03/12/2025 6:28 PM CDT 25 mg Given 03/12/2025 2:12 PM CDT 25 mg HYDROcodone-acetaminophen (NORCO) 5-325 mg per tablet 1 Tablet 1 Tablet, Oral, EVERY 6 HOURS PRN, Starting on 03/10/25 at 2356, Until Wed03/11/25 at 1045, Pain, Moderate, Routine, Previous Med: HYDROcodone-acetaminophen (NORCO) 5-325 mg tablet - Orig Sig - Take 1 Tablet by mouth every 6 hours as needed for Pain, Moderate. Max Daily Amount: 4 Tablets Given 03/11/2025 7:38 AM CDT 1 Tabl et Given 03/11/2025 12:41 AM CDT 1 Tablet HYDROcodone-acetaminophen (NORCO) 5-325 mg per tablet 1 Tablet 1 Tablet, Oral, EVERY 4 HOURS PRN, Starting on 03/11/25 at 1045, Until Wed03/13/25 at 1520, Pain, Moderate, Routine, Previous Med: HYDROcodone-acetaminophen (NORCO) 5-325 mg tablet - Orig Sig - Take 1 Tablet by mouth every 6 hours as needed for Pain, Moderate. Max Daily Amount: 4 Tablets Given 03/13/2025 9:43 AM CDT 1 Tabl et Given 03/13/2025 4:44 AM CDT 1 Tablet Given 03/12/2025 8:51 PM CDT 1 Tablet isosorbide mononitrate (IMDUR) SR 24 hour tablet 30 mg 30 mg, Oral, DAILY EARLY, First dose on Wed03/11/25 at 0600, Until Discontinued, Routine, Previous Med: isosorbide mononitrate (IMDUR) 30 mg Extended Release 24 hour tablet - Orig Sig - take 1 tablet by mouth once daily in the morning Given 03/13/2025 6:08 AM CDT 30 mg Given 03/12/2025 5:59 AM CDT 30 mg Given 03/11/2025 5:05 AM CDT 30 mg magnesium HYDROXIDE (MILK OF MAGNESIA) oral suspension 30 mL 30 mL, Oral, DAILY PRN, Starting on Wed03/13/25 at 0935, Until Wed03/13/25 at 1520, Constipation, Routine Given 03/13/2025 9:50 AM CDT 30 mL metoprolol succinate (TOPROL XL) SR 24 hour tablet 25 mg 25 mg, Oral, DAILY, First dose on Wed03/11/25 at 0900, Until Discontinued, Routine, Previous Med: metoprolol succinate (TOPROL XL) 25 mg Extended Release 24 hour tablet - Orig Sig - Take 1 tablet by mouth once daily Given 03/13/2025 9:43 AM CDT 25 mg Given 03/12/2025 9:34 AM CDT 25 mg naloxone (NARCAN) 0.4 mg/mL injection 0.1-0.4 mg 0.1-0.4 mg, IV, SEE ADMIN INSTRUCTIONS, Starting on 03/10/25 at 2358, Until Wed03/13/25 at 1520, Routine NIFEdipine (PROCARDIA XL) SR 24 hour tablet 30 mg 30 mg, Oral, DAILY, First dose on Wed03/11/25 at 0900, Until Discontinued, Routine, Previous Med: NIFEdipine (PROCARDIA XL) 30 mg Extended Release 24 hour tablet - Orig Sig - Take 1 tablet by mouth once daily Given 03/13/2025 9:49 AM CDT 30 mg Given 03/12/2025 10:09 AM CDT 30 mg Given 03/11/2025 8:16 AM CDT 30 mg predniSONE (DELTASONE) tablet 5 mg 5 mg, Oral, DAILY, First dose on Wed03/11/25 at 0900, Until Discontinued, Routine, Previous Med: predniSONE (DELTASONE) 5 mg tablet - Orig Sig - Take 1 Tablet by mouth daily. Given 03/13/2025 9:49 AM CDT 5 mg Given 03/12/2025 10:09 AM CDT 5 mg Given 03/11/2025 8:10 AM CDT 5 mg prochlorperazine maleate (COMPAZINE) tablet 10 mg 10 mg, Oral, EVERY 6 HOURS PRN, Starting on 03/10/25 at 2359, Until Wed03/13/25 at 1520, Nausea/Emesis, Routine rosuvastatin (CRESTOR) tablet 20 mg 20 mg, Oral, DAILY AT BEDTIME, First dose on Wed03/11/25 at 0000, Until Discontinued, Routine, Previous Med: rosuvastatin (CRESTOR) 20 mg tablet - Orig Sig - TAKE 1 TABLET BY MOUTH ONCE DAILY AT BEDTIME Given 03/12/2025 8:46 PM CDT 20 mg Given 03/11/2025 9:10 PM CDT 20 mg Given 03/11/2025 12:42 AM CDT 20 mg sennosides (SENOKOT) tablet 8.6 mg 8.6 mg, Oral, TWO TIMES DAILY, First dose on 03/12/25 at 0915, Until Discontinued, Routine Given 03/13/2025 9:43 AM CDT 8.6 mg Given 03/12/2025 8:46 PM CDT 8.6 mg Given 03/12/2025 9:34 AM CDT 8.6 mg sodium chloride 0.9 % flush bag 25 mL 25 mL, IV, SEE ADMIN INSTRUCTIONS, Starting on 03/10/25 at 2358, Until Wed03/13/25 at 1520, Routine sodium chloride flush injection 10 mL 10 mL, IV, EVERY 12 HOURS (BlD), First dose on 03/11/25 at 0000, Until Discontinued, Routine Given 03/13/2025 9:43 AM CDT 10 mL Given 03/12/2025 8:47 PM CDT 10 mL Given 03/11/2025 9:10 PM CDT 10 mL sodium chloride flush injection 10 mL 10 mL, IV, SEE ADMIN INSTRUCTIONS, Starting on 03/10/25 at 2358, Until Wed03/13/25 at 1520, Routine sulfaSALAzine (AZULFIDINE) tablet 500 mg 500 mg, Oral, DAILY, First dose on 03/11/25 at 0900, Until Discontinued, Routine, Previous Med: sulfaSALAzine (AZULFIDINE) 500 mg tablet - Orig Sig - Take 500 mg by mouth daily. Given 03/13/2025 9:49 AM CDT 500 mg Given 03/12/2025 10:09 AM CDT 500 mg Given 03/11/2025 8:15 AM CDT 500 mg tamsulosin (FLOMAX) SR 24 hour capsule 0.4 mg 0.4 mg, Oral, DAILY, First dose on 03/11/25 at 0900, Until Discontinued, Routine, Previous Med: tamsulosin (FLOMAX) 0.4 mg capsule - Orig Sig - Take 0.4 mg by mouth daily. Given 03/13/2025 9:43 AM CDT 0.4 mg Given 03/12/2025 9:33 AM CDT 0.4 mg Given 03/11/2025 8:10 AM CDT 0.4 mg documented in this encounter Active and Recently Administered Medications Times are shown in CDT. Scheduled Medication Order 03/11/2025 03/12/2025 03/13/2025 allopurinoL (ZYLOPRIM) tablet 300 mg 300 mg, Oral, DAILY, First dose on Wed03/11/25 at 0900, Until Discontinued, Routine, Previous Med: allopurinoL (ZYLOPRIM) 300 mg tablet - Orig Sig - Take 300 mg by mouth daily. 0810 (Given - Provider: Charisse Self RN) 1009 (Given - Provider: Clarita Patterson LPN) 0942 (Given - Provider: Gustavo Pederson LPN) dextrose 5 % in water 250 mL flush bag 25 mL 25 mL, IV, SEE ADMIN INSTRUCTIONS, Starting on 03/10/25 at 2358, Until Wed03/13/25 at 1520, Routine ferrous sulfate tablet 325 mg 325 mg, Oral, DAILY, First dose on 03/11/25 at 0900, Until Discontinued, Routine, Previous Med: ferrous sulfate 325 mg (65 mg iron) tablet - Orig Sig - Take 1 Tablet by mouth daily. 0810 (Given - Provider: Charisse Self RN) 0934 (Given - Provider: Clarita Patterson LPN) 0943 (Given - Provider: Gustavo Pederson LPN) fluticasone furoate-vilanteroL (BREO ELLIPTA) 200-25 mcg/dose inhaler 1 Puff 1 Puff, Inhalation, DAILY RESPIRATORY, First dose on 03/11/25 at 0800, Until Discontinued, Routine 0810 (Given - Provider: Charisse Self RN) 1009 (Given - Provider: Clarita Patterson LPN) 0942 (Given - Provider: Gustavo Pederson LPN) furosemide (LASIX) tablet 40 mg 40 mg, Oral, DAILY, First dose on 03/11/25 at 0900, Until Discontinued, Routine, Previous Med: furosemide (LASIX) 40 mg tablet - Orig Sig - Take 1 tablet by mouth once daily 0811 (Given - Provider: Charisse Self RN) 0934 (Given - Provider: Clarita Patterson LPN) 0943 (Given - Provider: Gustavo Pederson LPN) gabapentin (NEURONTIN) capsule 300 mg 300 mg, Oral, DAILY, First dose on 03/11/25 at 0900, Until Discontinued, Routine, Previous Med: gabapentin (NEURONTIN) 300 mg capsule - Orig Sig - Take 300 mg by mouth daily. 0811 (Given - Provider: Charisse Self RN) 0934 (Given - Provider: Clarita Patterson LPN) 0943 (Given - Provider: Gustavo Pederson LPN) hydrALAZINE (APRESOLINE) tablet 25 mg 25 mg, Oral, THREE TIMES DAILY, First dose on 03/11/25 at 0900, Until Discontinued, Routine, Previous Med: hydrALAZINE (APRESOLINE) 25 mg tablet - Orig Sig - Take 1 Tablet (25 mg) by mouth 3 times daily. 0811 (Given - Provider: Charisse Self RN)1220 (Given - Provider: Charisse Self RN)1727 (Given - Provider: Charisse Self RN) 0934 (Given - Provider: Clarita Patterson LPN)1412 (Given - Provider: Gustavo Pederson LPN)1828 (Given - Provider: Gustavo Pederson LPN) 0943 (Given - Provider: Gustavo Pederson LPN)1300 (Due) isosorbide mononitrate (IMDUR) SR 24 hour tablet 30 mg 30 mg, Oral, DAILY EARLY, First dose on 03/11/25 at 0600, Until Discontinued, Routine, Previous Med: isosorbide mononitrate (IMDUR) 30 mg Extended Release 24 hour tablet - Orig Sig - take 1 tablet by mouth once daily in the morning 0505 (Given - Provider: Pat Fitzgerald RN) 0559 (Given - Provider: Susanne Roberts RN) 0608 (Given - Provider: Soy Trinh RN) metoprolol succinate (TOPROL XL) SR 24 hour tablet 25 mg 25 mg, Oral, DAILY, First dose on 03/11/25 at 0900, Until Discontinued, Routine, Previous Med: metoprolol succinate (TOPROL XL) 25 mg Extended Release 24 hour tablet - Orig Sig - Take 1 tablet by mouth once daily 0810 (Not Given - Provider: Charisse Self RN - Reason: Lab results / vitals) 0934 (Given - Provider: Clarita Patterson LPN) 0943 (Given - Provider: Gustavo Pederson LPN) naloxone (NARCAN) 0.4 mg/mL injection 0.1-0.4 mg 0.1-0.4 mg, IV, SEE ADMIN INSTRUCTIONS, Starting on 03/10/25 at 2358, Until Tu03/13/25 at 1520, Routine NIFEdipine (PROCARDIA XL) SR 24 hour tablet 30 mg 30 mg, Oral, DAILY, First dose on 03/11/25 at 0900, Until Discontinued, Routine, Previous Med: NIFEdipine (PROCARDIA XL) 30 mg Extended Release 24 hour tablet - Orig Sig - Take 1 tablet by mouth once daily 0816 (Given - Provider: Charisse Self RN) 1009 (Given - Provider: Clarita Patterson LPN) 0949 (Given - Provider: Gustavo Pederson LPN) predniSONE (DELTASONE) tablet 5 mg 5 mg, Oral, DAILY, First dose on 03/11/25 at 0900, Until Discontinued, Routine, Previous Med: predniSONE (DELTASONE) 5 mg tablet - Orig Sig - Take 1 Tablet by mouth daily. 0810 (Given - Provider: Charisse Self RN) 1009 (Given - Provider: Clarita Patterson LPN) 0949 (Given - Provider: Gustavo Pederson LPN) rosuvastatin (CRESTOR) tablet 20 mg 20 mg, Oral, DAILY AT BEDTIME, First dose on 03/11/25 at 0000, Until Discontinued, Routine, Previous Med: rosuvastatin (CRESTOR) 20 mg tablet - Orig Sig - TAKE 1 TABLET BY MOUTH ONCE DAILY AT BEDTIME 0042 (Given - Provider: Pat Fitzgerald RN)2109 (Given - Provider: Radha Suazo RN) 2045 (Given - Provider: Soy Trinh RN) sennosides (SENOKOT) tablet 8.6 mg 8.6 mg, Oral, TWO TIMES DAILY, First dose on 03/12/25 at 0915, Until Discontinued, Routine 0934 (Given - Provider: Clarita Patterson LPN)2045 (Given - Provider: Soy Trinh RN) 0943 (Given - Provider: Gustavo Pederson LPN) sodium chloride 0.9 % flush bag 25 mL 25 mL, IV, SEE ADMIN INSTRUCTIONS, Starting on 03/10/25 at 2358, Until Wed03/13/25 at 1520, Routine sodium chloride flush injection 10 mL 10 mL, IV, EVERY 12 HOURS (BlD), First dose on 03/11/25 at 0000, Until Discontinued, Routine 0042 (Given - Provider: Pat Fitzgerald RN)0816 (Given - Provider: Charisse Self RN)2109 (Given - Provider: Radha Suazo RN) 09 (Due)2046 (Given - Provider: Soy Trinh RN) 0943 (Given - Provider: Gustavo Pederson LPN) sodium chloride flush injection 10 mL 10 mL, IV, SEE ADMIN INSTRUCTIONS, Starting on 03/10/25 at 2358, Until Wed03/13/25 at 1520, Routine sulfaSALAzine (AZULFIDINE) tablet 500 mg 500 mg, Oral, DAILY, First dose on Wed03/11/25 at 0900, Until Discontinued, Routine, Previous Med: sulfaSALAzine (AZULFIDINE) 500 mg tablet - Orig Sig - Take 500 mg by mouth daily. 0815 (Given - Provider: Charisse Self RN) 1009 (Given - Provider: Clarita Patterson LPN) 0949 (Given - Provider: Gustavo Pederson LPN) tamsulosin (FLOMAX) SR 24 hour capsule 0.4 mg 0.4 mg, Oral, DAILY, First dose on Wed03/11/25 at 0900, Until Discontinued, Routine, Previous Med: tamsulosin (FLOMAX) 0.4 mg capsule - Orig Sig - Take 0.4 mg by mouth daily. 0810 (Given - Provider: Charisse Self RN) 0933 (Given - Provider: Clarita Patterson LPN) 0943 (Given - Provider: Gustavo Pederson LPN) PRN Medication Order 03/11/2025 03/12/2025 03/13/2025 acetaminophen (TYLENOL) tablet 650 mg 650 mg, Oral, EVERY 6 HOURS PRN, Starting on 03/10/25 at 2357, Until Wed03/13/25 at 1520, Pain, Routine, Previous Med: acetaminophen (TYLENOL) 500 mg tablet - Orig Sig - Take 500 mg by mouth 2 times daily. albuterol sulfate 90 mcg/Actuation inhaler 2 Puff 2 Puff, Inhalation, EVERY 6 HOURS PRN RESPIRATORY, Starting on 03/10/25 at 2357, Until Wed03/13/25 at 1520, Shortness of Breath, Routine, Previous Med: albuterol sulfate 90 mcg/Actuation inhaler - Orig Sig - Take 2 Puffs by inhalation every 6 hours as needed. guaiFENesin (ROBITUSSIN) 100 mg/5 mL oral solution 200 mg 200 mg, Oral, EVERY 4 HOURS PRN, Starting on 03/11/25 at 1853, Until Wed03/13/25 at 1520, Cough, Routine 2112 (Given - Provider: Radha Suazo RN) HYDROcodone-acetaminophe n (NORCO) 5-325 mg per tablet 1 Tablet (CANCELED) 1 Tablet, Oral, EVERY 6 HOURS PRN, Starting on 03/10/25 at 2356, Until 03/11/25 at 1045, Pain, Moderate, Routine, Previous Med: HYDROcodone-acetaminophe n (NORCO) 5-325 mg tablet - Orig Sig - Take 1 Tablet by mouth every 6 hours as needed for Pain, Moderate. Max Daily Amount: 4 Tablets 0041 (Given - Provider: Pat Fitzgerald RN)0738 (Given - Provider: Charisse Self RN) HYDROcodone-acetaminophe n (NORCO) 5-325 mg per tablet 1 Tablet 1 Tablet, Oral, EVERY 4 HOURS PRN, Starting on 03/11/25 at 1045, Until Wed03/13/25 at 1520, Pain, Moderate, Routine, Previous Med: HYDROcodone-acetaminophe n (NORCO) 5-325 mg tablet - Orig Sig - Take 1 Tablet by mouth every 6 hours as needed for Pain, Moderate. Max Daily Amount: 4 Tablets 1220 (Given - Provider: Charisse Self RN)1556 (Given - Provider: Charisse Self RN)2113 (Given - Provider: Radha Suazo RN) 0417 (Given - Provider: Susanne Roberts RN)0933 (Given - Provider: Clarita Patterson LPN)1638 (Given - Provider: Clarita Patterson LPN)2051 (Given - Provider: Soy Trinh RN) 0444 (Given - Provider: Soy Trinh RN)0943 (Given - Provider: Gustavo Pederson LPN) magnesium HYDROXIDE (MILK OF MAGNESIA) oral suspension 30 mL 30 mL, Oral, DAILY PRN, Starting on Wed03/13/25 at 0935, Until Wed03/13/25 at 1520, Constipation, Routine 0950 (Given - Provider: Gustavo Pederson LPN) nitroglycerin (NITROSTAT) tablet 0.4 mg 0.4 mg, Sublingual, EVERY 5 MINUTES PRN, Starting on 03/10/25 at 2356, Until Wed03/13/25 at 1520, Chest Pain, Routine, Previous Med: nitroglycerin (NITROSTAT) 0.4 mg Tablet, Sublingual - Orig Sig - Place 1 Tablet (0.4 mg) under tongue every 5 minutes as needed for Chest Pain. prochlorperazine maleate (COMPAZINE) tablet 10 mg 10 mg, Oral, EVERY 6 HOURS PRN, Starting on 03/10/25 at 2359, Until 03/13/25 at 1520, Nausea/Emesis, Routine documented in this encounter Care Teams Auto Tech Relationship Specialty Start Date End Date Kalani Guillaume MD [address] [place] [id number] PCP - General Family Practice 12/31/16 documented as of this encounter
--- OUTSIDE RECORDS SUMMARY | 2025-03-19 14:50 | XMS_ITS | Encounter Summary ---
[facility] Address 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 Gender Identity Not on file Sexual Orientation Not on file documented as of this encounter Plan of Treatment Upcoming Encounters Date Type Department Care Team (Late Contact Info) Description 04/02/2025 11:00 AM CDT Appointment [facility] Ultrasound [place] [address] [place] [id number] Roger Gimenez MD [address] [facility] [address] [place] [address] 04/11/2025 9:30 AM CDT Office Visit [facility] Neurosurgery [address] [place] [address] Madhav Fuchs NP [address] [place] [address] 05/31/2025 8:00 AM 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 [address] [place] [phone] 09/04/2025 2:40 PM CDT Office Visit [facility] [address] [place] [phone] Johan Nicholas, [facility] [address], [address] [place] [phone] 11/15/2025 2:20 PM CDT Office Visit [facility] [address] [place] [phone] Emiliana Ocampo MD [address] [place] [phone] Pattie Brunson NP [address], [address] [place] [phone] documented as of this encounter Visit Diagnoses Not on filedocumented in this encounter Care Teams Meat Passer Relationship Specialty Start Date End Date Kalani Guillaume MD [address] [place] [address] PCP - General Family Practice 12/31/16 documented as of this encounter
--- OUTSIDE RECORDS SUMMARY | 2025-03-19 14:50 | XMS_ITS | Clinical Summary ---
Author Organization [facility] Address [address] [place] [address] Care Team Providers Care Bundle Cutter Name Role Phone Kalani Guillaume MD Primary Care Provider Allergies Active Allergy Reactions Criticality Noted Date Comments Iodine Rash Low 12/12/2008 Morphine Rash Low 12/12/2008 Povidone-Iodine Rash Low 12/12/2008 Medications ascorbic acid (VITAMIN C) 1,000 mg Oral Tab Take 1,000 mg by mouth 2 times daily. Active vitamin B complex (B-COMPLEX) Oral Tab Take 1 Tablet by mouth 2 times daily. Active [place]-3 Fatty Acids (SUPER [place]MEGA-3) 1,000 mg Oral [...] rivaroxaban (Xarelto) 2.5 mg TabletIndications :Atherosclerosis of [place] artery of both lower extremities with intermittent [...] on file Legal Sex Male 3:37 AM MONOTYPER Gender Identity Not on file Sexual Orientation Not on file Occupation Industry Job Start Date Job End Date Not on file Not on file Not on file Not on file Last Filed Vital Signs Vital Sign Reading Time Taken Comments Blood Pressure 124/84 08/06/2020 12:55 PM MONOTYPER Pulse 73 08/06/2020 12:55 PM MONOTYPER Temperature 36.4 C (97.6 F) 01/18/2020 8:00 AM CDT Respiratory Rate 16 01/18/2020 8:00 AM CDT Oxygen Saturation 98% 08/06/2020 12:55 PM MONOTYPER Inhaled Oxygen Concentration - - Weight 81 kg (178 lb 9.6 oz) 08/06/2020 12:55 PM MONOTYPER Height 175.3 cm (5' 9 ) 08/06/2020 12:55 PM MONOTYPER Body Mass Index 26.37 08/06/2020 12:55 PM MONOTYPER Plan of Treatment Health Maintenance Due Date Last Done Comments DTAP/TDAP/TD VACCINES (1 - Tdap) 1961 PNEUMOCOCCAL VACCINE 50+ YEARS (1 of 1 - PCV) 06/05/19 92 ZOSTER VACCINE (1 of 2) 1992 RSV VACCINE (60+ or ) (1 - 1-dose 75+ series) 2017 INFLUENZA VACCINE (#1) 2025 Medical Devices Implanted Type Area Sand Mill Operator Facing Sand Device Identifier Shelf Expiration Date Model / Serial / Lot Patch Vascu-Guard [id number] - [id number] Implanted:Qty : 1 on 02/09/2012 at [facility] Biological Right: Arterial SYNOVIS- [employer] 09/16/2016 [id number] / / [id number] Sealant Coseal 4ml [id number] - [id number] Implanted:Qty : 1 on 02/09/2012 at [facility] Biological Right: Arterial CORTES- HLTHCARE CALIN 09/12/2012 [id number] / / [id number] Cement Simplex Hvisc 6194-1-010 - [id number] Implanted:05/2019 by Ian Perkins MD at [facility] (Quantity not on file) Cement Left: Shoulder GAMAL- HOWMED[employer] INT [employer] 11/11/2020 6194-1-01 0 / / [id number] Cement Simplex Hvisc 6194-1-010 - [id number] Implanted:10/2019 by Ian Perkins MD at [facility] (Quantity not on file) Cement Right: Shoulder GAMAL- [employer] [id number] 03/13/2021 6194-1- 0 / / [id number] A Mesh Mod Kugel Rnd 10cm [id number] - [id number] Implanted:Qty : 1 on 03/06/2015 by Raymond Matias MD at [facility] Mesh Left: Groin CR BARD- DAVOL INC 11/09/2019 [id number] / / [id number] Sealant Mynx Arlen 5fr [id number] - [id number] Implanted:Qty : 1 on 02/09/2012 at [facility] Sealant Left: Arterial ACCESS CLOSURE 10/11/2012 [id number] / / [id number] Head Hum Simpliciti 08s45ve [id number] - [id number] Implanted:Qty : 1 on 04/25/2019 by Ian Perkins MD at [facility] Shoulder Left: Shoulder TORNIER INC 03/15/2024 [id number] / / [id number] 2 Head Hum Simpliciti Nucleus Sz3 [id number] - [id number] Implanted:Qty : 1 on 04/25/2019 by Ian Perkins MD at [facility] Shoulder Left: Shoulder [employer]OR[employer] 06/27/2023 [id number] / / [id number] Glenoid Aequalis Perform Pgd Crtlc Xl40 Tap123 - [id number] Implanted:Qty : 1 on 01/17/2020 by Ian Perkins MD at [facility] Shoulder Right: Shoulder [employer] [id number] 02/22/2022 [id number] / / [id number] Head Hum Simpliciti Nucleus Sz3 [id number] - [id number] Implanted:Qty : 1 on 01/17/2020 by Ian Perkins MD at [facility] Shoulder Right: Shoulder [employer] [id number] 09/28/2023 [id number] / / [id number] Head Hum Simpliciti [id number] - [id number] Implanted:Qty : 1 on 01/17/2020 by Ian Perkins MD at [facility] Shoulder Right: Shoulder [employer] [id number] 08/14/2024 [id number] / / [id number] Zilver 7x80- 7 Implanted: (Quantity not on file) Stent Comp Glnd Aqls 40 Lg Implanted:Qty : 1 on 04/25/2019 by Ian Perkins MD at [facility] Left: Shoulder [employer]OR[employer] 08/03/2023 [id number] / / [id number] Insurance [employer] [id number] HMO RX [place] Medicare Part D RX CAAL PLANS (INTERNAL) [facility] Internal Plans Advance Directives For more information, please contact: [phone] Documents on File Type Date Recorded 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
--- OUTSIDE RECORDS SUMMARY | 2025-03-19 14:50 | XMS_ITS | Clinical Summary ---
Author Organization [facility] tone Address [address] [place] [address] Care Team Providers Care Metals Analyst Name Role Phone Kalani Guillaume MD Primary Care Provider + [phone] Allergies Active Allergy Reactions Criticality Noted Date Comments Adhesive Rash High 02/10/2023 Dermabond allergy Iodine Rash Low 12/12/2008 Meperidine Rash Low 02/25/2023 Morphine Rash Low 12/12/2008 Povidone-Iodine Rash Low 12/12/2008 Medications elderberry fruit (ELDERBERRY ORAL) Take by mouth daily. 07/04/19 20 Active aspirin (ECOTRIN EC) 81 mg Tablet, Delayed Release (E.C.) Take 81 mg by mouth daily. 04/03/20 19 Active cranberry fruit extract (cranberry extract) 500 mg Tablet Take by mouth 2 times daily. Active vit B complex 100 no.2/herbs (VITAMIN B COMPLEX 100 2-HERBS ORAL) Take 1 Tablet by mouth 2 times daily. Active LANSOPRAZOLE, BULK, MISC Take 20 mg by mouth 2 times daily. Active VITAMIN A ORAL Take 1 Tablet by mouth 2 times daily. Active cholecalciferol , vitamin D3, (VITAMIN D3 ORAL) Take 1 Tablet by mouth daily. 10/30/19 18 Active sulfaSALAzine (AZULFIDINE) 500 mg tablet Take 500 mg by mouth daily. Active gabapentin (NEURONTIN) 300 mg capsule Take 300 mg by mouth daily. 10/21/19 22 Active albuterol sulfate 90 mcg/Actuation inhaler Take 2 Puffs by inhalation every 6 hours as needed. Active budesonide-form oteroL (SYMBICORT) 160-4.5 mcg/actuation HFA Aerosol Inhaler Take 2 Puffs by inhalation daily. 06/03/20 Active tamsulosin (FLOMAX) 0.4 mg capsule Take 0.4 mg by mouth daily. 10/30/19 Active fexofenadine (KOKO) 60 mg tablet Take 60 mg by mouth daily. Active acetaminophen (TYLENOL) 500 mg tablet Take 500 mg by mouth 2 times daily. Active allopurinoL (ZYLOPRIM) 300 mg tablet Take 300 mg by mouth daily. Active ascorbic acid, vitamin C, (VITAMIN C) 1,000 mg Tablet Take 1,000 mg by mouth 2 times daily. Active ferrous sulfate 325 mg (65 mg iron) tablet Take 1 Tablet by mouth daily. Active fluticasone propionate (FLONASE) 50 mcg/spray [place], Suspension nasal inhaler USE 1 SPRAY(S) IN EACH NOSTRIL TWICE DAILY NEEDED FOR ALLERGIES Active predniSONE (DELTASONE) 5 mg tablet Take 1 Tablet by mouth daily. 01/20/20 24 Active furosemide (LASIX) 40 mg tablet Take 1 tablet by mouth once daily 90 Tablet 3 03/16/20 24 Active rosuvastatin (CRESTOR) 20 mg tabletIndicatio ns:Atherosclero sis of coronary artery, unspecified vessel or lesion type, unspecified whether angina present, unspecified whether [place] or transplanted heart TAKE 1 TABLET BY MOUTH ONCE DAILY AT BEDTIME 90 Tablet 3 07/25/19 25 Active metoprolol succinate (TOPROL XL) 25 mg Extended Release 24 hour tabletIndicatio ns:Second degree heart block,Sick sinus syndrome (CMS/HCC),Parox ysmal atrial fibrillation (CMS/HCC) Take 1 tablet by mouth once daily 90 Tablet 3 08/29/19 25 Active rivaroxaban (Xarelto) 15 mg Tablet Take 1 Tablet (15 mg) by mouth daily with supper. 90 Tablet 3 08/29/19 25 Active NIFEdipine (PROCARDIA XL) 30 mg Extended Release 24 hour tablet Take 1 tablet by mouth once daily 90 Tablet 3 11/08/19 25 Active potassium CHLORIDE (K-DUR,KLOR-CON M20) 20 mEq Extended Release tablet Take 1 tablet by mouth once daily 90 Tablet 01/02/20 25 Active diphenhydrAMINE -acetaminophen (TYLENOL PM) 25-500 mg Tablet Take 2 Tablets by mouth 2 times daily. Active nitroglycerin (NITROSTAT) 0.4 mg Tablet, Sublingual Place 1 Tablet (0.4 mg) under tongue every 5 minutes as needed for Chest Pain. 25 Tablet 6 03/01/20 25 Active isosorbide mononitrate (IMDUR) 30 mg Extended Release 24 hour tablet TAKE 1 TABLET BY MOUTH ONCE DAILY IN THE MORNING 90 Tablet 3 03/14/20 25 Active hydrALAZINE (APRESOLINE) 25 mg tablet TAKE 1 TABLET BY MOUTH THREE TIMES DAILY 270 Tablet 3 03/19/20 25 Active indomethacin (INDOCIN) 25 mg capsule TAKE 1 CAPSULE BY MOUTH THREE TIMES DAILY NEEDED FOR GOUT 09/30/19 22 025 Discontinued HYDROcodone-neelam taminophen (NORCO) 5-325 mg tabletIndicatio ns:Biventricula r ICD (implantable cardioverter-de fibrillator) in place Take 1 Tablet by mouth every 6 hours as needed for Pain, Moderate. Max Daily Amount: 4 Tablets 20 Tablet 07/06/19 24 025 Discontinued hydrALAZINE (APRESOLINE) 25 mg tablet Take 1 Tablet (25 mg) by mouth 3 times daily. 270 Tablet 3 03/29/20 24 025 Discontinued isosorbide mononitrate (IMDUR) 30 mg Extended Release 24 hour tablet take 1 tablet by mouth once daily in the morning 90 Tablet 3 03/29/20 24 025 Discontinued nitroglycerin (NITROSTAT) 0.4 mg Tablet, Sublingual DISSOLVE ONE TABLET UNDER THE TONGUE EVERY 5 MINUTES NEEDED FOR CHEST PAIN. 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 09/01/2024 SSS (sick sinus syndrome) 02/25/2024 Congestive heart failure wit h left ventricular diastolic dysfunction, NYHA class 3 06/04/2023 Cardiomyopathy 06/04/2023 Asthma 04/01/2023 Gout 04/01/2023 A-fib 01/07/2023 Chronic atrial fibrillation 01/07/2023 Chronic combined systolic (c ongestive) and diastolic (congestive) heart failure 04/29/2020 S/P shoulder replacement, right 01/17/2020 Primary osteoarthritis, [...] wrist 12/24/2015 PAD (peripheral artery disease) 11/05/2015 Peripheral vascular disease 11/05/2015 Hip joint replacement by other means 08/11/2010 Resolved Problems Problem Noted Date Diagnosed Date Resolved Date Atherosclerotic PVD with int ermittent claudication 01/14/2012 02/02/2017 Encounters Date Type Department Care Team Description 03/16/2025 Refill [facility] [address] [place] [address] Roger Gimenez MD 03/15/2025 Orders Only [facility] [address] [place] [address] Provider, Abstract 03/14/2025 [facility] [address] [place] [phone] Emiliana Ocampo MD 03/13/2025 External Device Data [facility] ABSTRACTION Provider, Abstract 03/13/2025 External Device Data [facility]STRACTION Provider, Abstract 03/13/2025 External Device Data [facility] ABSTRACTION Provider, Abstract 03/12/2025 Orders Only [facility] [address] [place] [address] Provider, Abstract 03/10/2025 9:33 PM CDT - 03/13/2025 1:14 PM CDT Hospital Encounter [facility] Neurology [address] [place] [address] aWshington Wick DO Patel, Taksh, MD Nerella, Ravi V., MD Subdural hematoma (CMS/HCC) Discharge Disposition: Home or Self Care 03/10/2025 Travel 03/01/2025 2:00 PM CDT Office Visit [place] [address] [place] [phone] Roger Gimenez MD ASHD (arteriosclerotic heart disease) (Primary Dx); History of coronary artery stent placement; Chronic combined systolic and diastolic CHF, NYHA class 3 (CMS/HCC); Ischemic dilated cardiomyopathy (CMS/HCC); Atrial fibrillation, unspecified type (CMS/HCC); Chronic anticoagulation; 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; Essential hypertension; Dyslipidemia 02/28/2025 8:00 AM CDT Procedure visit [place] [address] [facility] [address] [place] [phone] Sick sinus syndrome (CMS/HCC) (Primary Dx); Atrial fibrillation, unspecified type (CMS/HCC); Congestive heart failure, unspecified HF chronicity, unspecified heart failure type (CMS/HCC); Ischemic dilated cardiomyopathy (CMS/HCC); Automatic implantable cardioverter-defibril lator in situ 02/26/[address] [place] [phone] Roger Gimenez MD 02/26/25 Myears Appt Needs Rescheduled 01/23/2025 External Device Data [facility] ABSTRACTION Provider, Abstract 12/30/2024 Refill [place] [address] [place] [phone] Roger Gimenez MD 12/27/2024 External Device Data [facility] ABSTRACTION Provider, Abstract 12/27/2024 External Device Data [facility] ABSTRACTION Provider, Abstract 12/19/2024 Telephone [place] [address] [facility] [address] [place] [phone] Roger Gimenez MD Medication Ok To Take? 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 Gender Identity Not on file Sexual [...] Mass Index 24.42 03/11/2025 12:32 AM CDT Plan of Treatment Upcoming Encounters Date Type Department Care Team (Late st Contact Info) Description 04/02/2025 11:00 AM CDT Appointment [facility] Ultrasound [place] [address] [place] [address] Roger Gimenez MD [address] [place] [phone] 04/11/2025 9:30 AM CDT Office Visit [facility] [address] [place] [address] Madhav Fuchs, JESSICA [address] [place] [phone] 05/31/2025 8:00 AM 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 Procedure visit [facility] [address] [place] [phone] 09/04/2025 2:40 PM CDT Office Visit [facility] [address] [place] [phone] Johan Nicholas, [facility] [address], [address] [place] [phone] 11/15/2025 2:20 PM CDT Office Visit [facility] [address] [place] [phone] Emiliana Ocampo MD [address] [place] [phone] Pattie Brunson NP [address], [address] [place] [phone] Health Maintenance Due Date Last Done [...] years Discontinued Medical Devices Implanted Type Area Transit Bus Driver Device Identifier Shelf Expiration Date Model / Serial / Lot Patch Vascu-Guard Vg-0108n - [id number] Implanted:Qty : 1 on 02/09/2012 Biological Right: Arterial SYNOVIS- BIO-VASCULAR INC 09/16/2016 VG-0108N / / [id number] Sealant Coseal 4ml 228615 - [id number] Implanted:Qty : 1 on 02/09/2012 Biological Right: Arterial CORTES- [employer]THCARE CALIN 09/12/2012 [id number] / / [id number] Cement Simplex Hvisc 6194-1-010 - [id number] Implanted:05/2019 by Ian Perkins MD (Quantity not on file) Cement Left: Shoulder GAMAL- HOWMEDICA INT INC 11/11/2020 6194-1-0 / / [id number] Cement Simplex Hvisc 6194-1-010 - [id number] Implanted:10/2019 by Ian Perkins MD (Quantity not on file) Cement Right: Shoulder GAMAL- HOWMEDICA INT INC [id number] 03/13/2021 6194-1-0 / / [id number] Senior It Security Analyst-D Niobrara Xt Hf Quad Mri [id number] Df4 Surescan Keha5kb - [id number] Implanted:Qty : 1 on 07/06/2023 by Emiliana Ocampo MD at [facility] Defibrillator Left: Chest MEDTRONIC- CARD RHYTHM MGMT 10/09/2024 [id number] / [id number] / M Lead Capsurefix Novus 58cm Endocardial Pacing [id number] - [id number] Implanted:Qty : 1 on 02/04/2023 at [facility] Lead Left: Chest MEDTRONIC- CRM - BULK BUY 10/27/2024 [id number] / [id number] / Lead Pacing Capsure Fix Novus 52cm [id number] - Csc - [id number] Implanted:Qty : 1 on 02/04/2023 at [facility] Lead Left: Chest MEDTRONIC- CRM - BULK BUY 11/13/2024 [id number] / [id number] / Lead Sprint Quattro Secure 62cm [id number] - Csc - [id number] Implanted:Qty : 1 on 07/06/2023 by Emiliana Ocampo MD at [facility] Lead Left: Chest MEDTRONIC- CRM - BULK BUY 04/12/2025 [id number] / [id number] / Lead Attain 88cm St Vent Quad 4798-88 - [id number] Implanted:Qty : 1 on 07/06/2023 by Emiliana Ocampo MD at [facility] Lead Left: Chest MEDTRONIC- CARD RHYTHM MGMT 04/05/2025 4798-88 / [id number] 1V / Mesh Mod Kugel Rnd 10cm 285625 - [id number] Implanted:Qty : 1 on 03/06/2015 by Raymond Matias MD Mesh Left: Groin CR BARD- DAVOL INC 11/09/2019 [id number] / / [id number] Pacemaker Lind Xt Dr Mri Ipg Dual Chmbr Surescan W1dr01 - [id number] Implanted:Qty : 1 on 02/04/2023 at [facility] Pacemaker Left: Chest MEDTRONIC- CRM - BULK BUY 06/27/2024 [id number] / [id number] 7G / Sealant Mynx Arlen 5fr Jn6729 - [id number] Implanted:Qty : 1 on 02/09/2012 Sealant Left: Arterial ACCESS CLOSURE 10/11/2012 [id number] / / [id number] Head Hum Simpliciti 73k76de [id number] - [id number] Implanted:Qty : 1 on 04/25/2019 by Ian Perkins MD Shoulder Left: Shoulder TORNIER INC 03/15/2024 [id number] Head Hum Simpliciti Nucleus Sz3 Wuj829 - [id number] Implanted:Qty : 1 on 04/25/2019 by Ian Perkins MD Shoulder Left: Shoulder TORNIER INC 06/27/2023 [id number] / / [id number] Glenoid Aequalis Perform Pgd Crtlc Xl40 Chi699 - [id number] Implanted:Qty : 1 on 01/17/2020 by Ian Perkins MD Shoulder Right: Shoulder TORNIER INC [id number] 02/22/2022 [id number] / / [id number] Head Hum Simpliciti [id number] - [id number] Implanted:Qty : 1 on 01/17/2020 by Ian Perkins MD Shoulder Right: Shoulder TORNIER INC [id number] 08/14/2024 [id number] / / [id number] Head Hum Simpliciti Nucleus Sz3 Anq215 - [id number] Implanted:Qty : 1 on 01/17/2020 by Ian Perkins MD Shoulder Right: Shoulder TORNIER INC [id number] 09/28/2023 [id number] / / [id number] Zilver 7x80- 7 Implanted: (Quantity not on file) Stent Comp Glnd Aqls 40 Lg Implanted:Qty : 1 on 04/25/2019 by Ian Perkins MD Left: Shoulder TORNIER INC 08/03/2023 [id number] / / [id number] Procedures Procedure Name Priority Date/Time Associated Diagnosis Comments TELEMETRY REPORT 03/14/2025 3:[address] HEAD WO CONTRAST Routine 03/13/2025 7 :[address] HEAD WO CONTRAST Pending Discharge 03/12/2025 9:53 AM CDT BASIC METABOLIC PANEL Routine 03/11/2025 2:18 AM CDT CBC WITH DIFFERENTIAL Routine 03/11/2025 2:[address] HEAD WO CONTRAST Stat 03/10/2025 11:02 PM CDT COMPREHENSIVE METABOLIC PANEL Stat 03/10/2025 10:02 PM CDT PTT Stat 03/10/2025 10:02 PM CDT PROTIME-INR Stat 03/10/2025 10:02 PM CDT CBC WITH DIFFERENTIAL Stat 03/10/2025 10:02 PM CDT EKG 12-LEAD Stat 03/10/2025 9:46 PM CDT COMPREHENSIVE METABOLIC PANEL Routine 03/10/2025 11:32 AM CDT COMPREHENSIVE METABOLIC PANEL Routine 03/10/2025 10:04 AM CDT NE REM INTERROG PM/LDLS PM/IDS <90 D TECH REVIEW Routine 02/28/2025 8:33 PM CDT Sick sinus syndrome (CMS/HCC) Atrial fibrillation, unspecified type (CMS/HCC) Congestive heart failure, unspecified HF chronicity, unspecified heart failure type (CMS/HCC) Ischemic dilated cardiomyopathy (CMS/HCC) Automatic implantable cardioverter-defibri llator in situ NE INTERROGATION EVAL REMOTE </90 D 1/2/SAFETY SEALER LD DFB Routine 02/28/2025 8:33 PM CDT Sick sinus syndrome (CMS/HCC) Atrial fibrillation, unspecified type (CMS/HCC) Congestive heart failure, unspecified HF chronicity, unspecified heart failure type (CMS/HCC) Ischemic dilated cardiomyopathy (CMS/HCC) Automatic implantable cardioverter-defibri llator in situ from Last 3 Months Results * TELEMETRY REPORT (03/14/2025 3:08 PM CDT) us Provider Scanning ECG ORDERABLES Final Result * CT HEAD WO CONTRAST (03/13/2025 7:15 AM CDT) Only the most recent of3 resultswithin the time period is included. Anatomical Region Laterality Modality Head Computed Tomogra [...] LAGOS CT ORDERABLES Final Result * (ABNORMAL) CBC WITH DIFFERENTIAL (03/11/2025 2:18 AM CDT) Only the most recent of2 resultswithin the time period is included. [facility] WBC 6.6 4.8 - 10.8 K/uL 03/11/2025 2:[address] [facility] LABORATORY SERVICES [facility] RBC 3.46(L) 4.60 - 6.20 M/uL 03/11/2025 2:37 AM [facility] HEMOGLOBIN 10.2(L) 14.0 - 18.0 g/dL 03/11/2025 2:37 AM [facility] HEMATOCRIT 32.6(L) 41.0 - 53.0 % 03/11/2025 2:37 AM [facility] MCV 94.2 84.0 - 103.0 fL 03/11/2025 2:37 AM [facility] MCH 29.5 27.0 - 34.0 pg 03/11/2025 2:37 AM [facility] MCHC 31.3 30.0 - 35.0 g/dL 03/11/2025 2:37 AM [facility] PLATELETS 141 140 - 440 K/uL 03/11/2025 2:37 AM [facility] MPV 9.6 8.9 - 12.8 fL 03/11/2025 2:37 AM [facility] RDW 17.9(H) 11.0 - 14.5 % 03/11/2025 2:37 AM [facility] RDW-STDEV 61.4(H) 37.0 - 54.0 fL 03/11/2025 2:37 AM [facility] NEUTROPHILS 74 42 - 75 % 03/11/2025 2:37 AM [facility] LYMPHOCYTES 15(L) 24 - 44 % 03/11/2025 2:37 AM [facility] MONOCYTES 8 2 - 10 % 03/11/2025 2:37 AM [facility] EOSINOPHILS 2 0 - 7 % 03/11/2025 2:37 AM [facility] BASOPHILS 0 0 - 1 % 03/11/2025 2:37 AM [facility] IMMATURE GRANULOCYTES 1 0 - 2 % 03/11/2025 2:37 AM [facility] NEUTROPHIL ABSOLUTE 4.85 2.00 - 8.00 K/uL 03/11/2025 2:37 AM CDT [facility] LYMPHOCYTE ABSOLUTE 1.00(L) 1.20 - 4.00 K/uL 03/11/2025 2:37 AM CDT [facility] MONOCYTE ABSOLUTE 0.55 0.10 - 0.60 K/uL 03/11/2025 2:37 AM CDT [facility] EOSINOPHIL ABSOLUTE 0.12 0.00 - 0.70 K/uL 03/11/2025 2:37 AM CDT [facility] BASOPHILS ABSOLUTE 0.02 0.00 - 0.20 K/uL 03/11/2025 2:37 AM CDT [facility] IMMATURE GRANULOCYTES ABSOLUTE 0.04 0.00 - 0.10 K/uL 03/11/2025 2:37 AM T [facility] SMEAR REVIEWED: NN - No Action Needed 03/11/2025 2:37 AM [facility] Blood Venipuncture / Unknown 03/11/2025 2:18 AM CDT 03/11/2025 2:26 AM CDT us Olga Sheehan MD HEMATOLOGY ORDERABLES Final Resu lt [facility] CLIA # [id number] [address] [place] [address] * (ABNORMAL) BASIC METABOLIC PANEL (03/11/2025 2:18 AM CDT) SODIUM 138 136 - 145 mmol/L 03/11/2025 3:01 AM CDT [facility] POTASSIUM 3.5 3.5 - 5.1 mmol/L 03/11/2025 3:01 AM CDT [facility] CHLORIDE 102 98 - 107 mmol/L 03/11/2025 3:01 AM CDT [facility] CO2 24 22 - 29 mmol/L 03/11/2025 3:01 AM CDT [facility] CALCIUM 8.9 8.8 - 10.2 mg/dL 03/11/2025 3:01 AM CDT [facility] BUN 23 8 - 23 mg/dL 03/11/2025 3:01 AM T [facility] CREATININE 1.36(H) 0.67 - 1.17 mg/dL 03/11/2025 3:01 AM T [facility] Comment:The GFR result is no t clinically significant on patients <18 or >70 years of age. GLUCOSE 147(H) 74 - 99 mg/dL 03/11/2025 3:01 AM T [facility] GFR 52 mL/min/1. 73 sq meter 03/11/2025 3:01 AM T [facility] Comment:eGFR calculated with 2020 CKD-EPI equation. Vegetarian diet, extremely high or low muscle mass, and may affect results. Cystatin C with Glomerular Filtration Rate is a suitable alternative for these patients. ANION GAP 12 9 - 20 mmol/L 03/11/2025 3:01 AM T [facility] Blood Venipuncture / Unknown 03/11/2025 2:18 AM CDT 03/11/2025 2:26 AM CDT us Olga Sheehan MD CHEMISTRY ORDERABLES Final Resul t [facility] CLIA # [id number] [address] [place] [address] * PTT (03/10/2025 10:02 PM CDT) PTT 35.0 24.8 - 37.2 seconds 03/10/2025 10:30 PM CDT [facility] Blood Venipuncture / Unknown 03/10/2025 10:02 PM CDT 03/10/2025 10:08 PM CDT Narrative [facility] - 03/10/2025 10:30 PM CDT Therapeutic Range: Hi-level PE/DVT heparin protocol 80.1 - 95.0 sec Lo-level PE/DVT heparin protocol 70.1 - 85.0 sec Cardiac Heparin Protocol 70.1 - 100.0 sec [place] Wick DO HEMATOLOGY ORDERABLES Fin al Result Performing Organization Address [facility] de Phone Number [facility] [employer] [facility] CLIA # [id number] [address] [address] * PROTIME-INR (03/10/2025 10:02 PM CDT) PROTIME 14.5 12.7 - 14.9 Seconds 03/10/2025 10:[address] [facility] [employer] [facility] INR 1.1 0.8 - 1.2 03/10/2025 10:30 PM [address] [facility] Blood Venipuncture / Unknown 03/10/2025 10:02 PM CDT 03/10/2025 10:[address] [facility] [employer] [facility] - 03/10/2025 10:30 PM CDT Expected Values for INR: DVT/PE Goal INR 2.5; range 2.0 - 3.0 Valve Replacement Tissue Goal INR 2.5; range 2.0 - 3.0 Valve Replacement Mechanical Goal INR 3.0; range 2.5 - 3.5 POST-MA Goal INR 2.5; range 2.0 - 3.0 or Goal INR 3.0; range 2.5 - 3.5 Atrial Fibrillation Goal INR 2.5; range 2.0 - 3.0 Ischemic Stroke Goal INR 2.5; range 2.0 - 3.0 [place] Wick DO HEMATOLOGY ORDERABLES Fin al Result Performing Organization Address [facility] de Phone Number [facility] [employer] [facility] CLIA # [id number] [address] [address] * (ABNORMAL) COMPREHENSIVE METABOLIC PANEL (03/10/2025 10:02 PM CDT) Only the most recent of3 resultswithin the time period is included. [facility] SODIUM 137 136 - 145 mmol/L 03/10/2025 10:45 PM [facility] POTASSIUM 3.8 3.5 - 5.1 mmol/L 03/10/2025 10:45 PM [facility] CHLORIDE 101 98 - 107 mmol/L 03/10/2025 10:45 PM [facility] CO2 23 22 - 29 mmol/L 03/10/2025 10:45 PM [facility] CALCIUM 9.3 8.8 - 10.2 mg/dL 03/10/2025 10:45 PM [facility] BUN 24(H) 8 - 23 mg/dL 03/10/2025 10:45 PM [facility] CREATININE 1.31(H) 0.67 - 1.17 mg/dL 03/10/2025 10:45 PM [facility] Comment:The GFR result is no t clinically significant on patients <18 or >70 years of age. GLUCOSE 86 74 - 99 mg/dL 03/10/2025 10:45 PM [facility] TOTAL PROTEIN 6.8 6.4 - 8.3 g/dL 03/10/2025 10:45 PM [facility] ALBUMIN 4.1 3.5 - 5.2 g/dL 03/10/2025 10:45 PM [facility] BILIRUBIN TOTAL 0.7 0.0 - 1.0 mg/dL 03/10/2025 10:45 PM [facility] ALKALINE PHOSPHATASE 72 40 - 129 U/L 03/10/2025 10:45 PM [facility] AST 27 10 - 50 U/L 03/10/2025 10:45 PM [facility] ALT 12 <=50 U/L 03/10/2025 10:45 PM [facility] GFR 54 mL/min/1. 73 sq meter 03/10/2025 10:45 PM [facility] Comment:eGFR calculated with 2020 CKD-EPI equation. Vegetarian diet, extremely high or low muscle mass, and may affect results. Cystatin C with Glomerular Filtration Rate is a suitable alternative for these patients. ANION GAP 13 9 - 20 mmol/L 03/10/2025 10:[address] [facility] LABORATORY [facility] Blood Venipuncture / Unknown 03/10/2025 10:02 PM CDT 03/10/2025 10:10 PM CDT us [place] Wick DO CHEMISTRY ORDERABLES Siobhan l Result [facility] CLIA # [id number] [address] [place] [address] * EKG 12-LEAD (03/10/2025 9:46 PM CDT) 03/10/2025 9:46 PM CDT Narrative INTERFACE SYSTEM - 03/11/2025 1:08 PM CDT [address] [address] Test Date: 2025-03-10 Pat Name: JUAN M MABRY Department: 11 Room: 11 17 Gender: Male Nurse'S Companion: [id number] : 1940 Requested By: Order Number: [id number] Reading MD: Maria Guadalupe Chong Measurements Intervals [place] Rate: 74 P: 43 NE: 0 QRS: 250 QRSD: 150 T: 60 QT: 438 QTc: 486 Interpretive Statements Ventricular-paced rhythm with intrinsic complexes Biventricular pacemaker detected Abnormal ECG Electronically Signed On 03-11-2025 13:08:13 CDT by Maria Guadalupe Chong Procedure Note Provider, Historical - 03/11/[address] [address] Test Date: 2025-03-10 Pat Name: JUAN M MABRY Department: 11 Room: 06 Gender: Male Nurse'S Companion: [id number] : 1940 Requested By: Order Number: [id number] Reading MD: Maria Guadalupe Chong Measurements Intervals [place] Rate: 74 P: 43 NE: 0 QRS: 250 QRSD: 150 T: 60 QT: 438 QTc: 486 Interpretive Statements Ventricular-paced rhythm with intrinsic complexes Biventricular pacemaker detected Abnormal ECG Electronically Signed On 03-11-2025 13:08:13 CDT by Maria Guadalupe Chong us Protocol [facility] MD ECG ORDERABLES Final Result Performing Organization Address City/[facility] de Phone Number INTERFACE SYSTEM Refer to clinic/hospital department * NE INTERROGATION EVAL REMOTE </90 D 1/2/SAFETY SEALER LD DFB, NE REM INTERROG PM/LDLS PM/IDS <90 D TECHREVIEW [...] 3 months. 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 Advance Directive POA 04/25/2019 8:59 AM Advance Directive POA Advance Directive Living Will 04/25/2019 8:58 AM Advance Directive Living Will * Full Code (Latest Code Status on File) Date Activated Date Inactivated Comments 03/10/2025 11:59 PM 03/13/2025 3:15 PM * Full Code Date Activated Date Inactivated Comments 07/06/2023 3:51 PM 07/06/2023 8:30 PM * Full Code Date Activated Date Inactivated Comments 07/06/2023 11:11 AM 07/06/2023 3:51 PM * Full Code Date Activated Date Inactivated Comments 02/04/2023 1:06 PM 02/04/2023 5:52 PM * Full Code Date Activated Date Inactivated Comments 02/04/2023 7:48 AM 02/04/2023 1:06 PM Care Teams Metals Analyst Relationship Specialty Start Date End Date Kalani Guillaume MD [address] [place] [address] PCP - General Family Practice 12/31/16
--- OUTSIDE RECORDS SUMMARY | 2025-03-19 14:50 | XMS_ITS | Encounter Summary ---
Author Organization [facility] Address [address] [place] [address] Care Team Providers Care Rug Setter [place] Name Role Phone Kalani Guillaume MD Primary Care Provider [phone] Reason for Referral * Outpatient Services (Routine) - Closed Specialty Diagnoses / Procedures Referred By Contac t Referred To Contact Diagnoses PVD (peripheral vascular disease) Procedures CL ARTERIAL FEMORAL RUNOFF Charity Ocampo MD NO ADDRESS ON FILE Referral ID Status Reason Start Date Expiration Date Visits Re quested Visits Authorized [id number] Closed 02/09/2012 02/08/2013 1 1 Encounter Details Date Type Department Care Team (Latest Contact Info) Description 02/09/[address] [facility] Interventional Radiology [place] [address] [place] [address] [place] [address] Charity Ocampo MD NO ADDRESS ON FILE PVD (peripheral vascular disease) Social History Tobacco Use Types Packs/Day Years Used Date Smoking Tobacco: Former Cigarettes Smokeless Tobacco: Never Alcohol Use Standard Drinks/Week Comments Yes 0 (1 standard drink = 0.6 oz pur e alcohol) Sex and Gender Information Value Date Recorded Sex Assigned at Not on file Legal Sex Male 3:37 AM CABINETMAKER MAINTENANCE Gender Identity Not on file Sexual Orientation Not on file Occupation Industry Job Start Date Job End Date Not on file Not on file Not on file Not on file documented as of this encounter Plan of Treatment Not on file documented as of this encounter Results * CL ARTERIAL FEMORAL RUNOFF (02/09/2012 7:06 PM CDT) Narrative 08/10/2017 8:11 PM CABINETMAKER MAINTENANCE FINAL - See Provider Note Procedure Note 07/24/2015 FINAL - See Provider Note us Charity Ocampo MD FLUOROSCOPY ORDERABLES Final Result documented in this encounter Visit Diagnoses Diagnosis PVD (peripheral vascular disease) Peripheral vascular disease, unspecified documented in this encounter Care Teams Rug Setter [place] Relationship Specialty Start Date End Date Kalani Guillaume MD [address] [place] [address] PCP - General Family Practice 12/31/16 documented as of this encounter
--- OUTSIDE RECORDS SUMMARY | 2025-03-19 14:50 | XMS_ITS | Encounter Summary ---
Author Organization [facility] Address [address] [place] [address] Care Team Providers Care Verifying Machine Operator Name Role Phone Kalani Guillaume MD Primary Care Provider + [phone] Encounter Details Date Type Department Care Team [...] on file Legal Sex Male 5:18 PM PATTERN DEVELOPER Gender Identity Not on file Sexual Orientation Not on file documented as of this encounter Plan of Treatment Upcoming Encounters Date Type Department Care Team (Late Contact Info) Description 04/02/2025 11:00 AM CDT Appointment [facility] Ultrasound [place] [address] [place] [phone] Roger Gimenez MD [address] [facility] [address] [place] [address] 04/11/2025 9:30 AM CDT Office Visit [facility] Neurosurgery [address] [address] [place] [address] Madhav Fuchs NP [address] [place] [address] 05/31/2025 8:00 AM PATTERN DEVELOPER Procedure visit [facility] [address] [place] [address] 09/04/2025 2:40 PM CDT Office Visit [facility] [address] [place] [address] Johan Nicholas, [facility] [address], [address] [place] [address] 11/15/2025 2:20 PM CDT Office Visit [facility] [address] [place] [address] Emiliana Ocampo MD [address] [place] [address] Pattie Brunson NP [address], [address] [place] [address] documented as of this encounter Visit Diagnoses Not on filedocumented in this encounter Care Teams Verifying Machine Operator Relationship Specialty Start Date End Date Kalani Guillaume MD [address] [place] [address] PCP - General Family Practice 12/31/16 documented as of this encounter
--- OUTSIDE RECORDS SUMMARY | 2025-03-19 14:50 | XMS_ITS | Encounter Summary ---
Author Organization [facility] Address [address] [place] [address] Care Team Providers Care Booking Clerk Name Role Phone Kalani Guillaume MD Primary Care Provider + [phone] Reason for Visit * Reason Comments Med Refill Encounter Details Date Type Department Care Team (Late Contact Info) Description 03/14/2025 Refill [facility] [address] [facility] [address] [place] [address] Emiliana Ocampo MD [address] [facility] [address] [place] [address] Social History Tobacco Use Types Packs/Day [...] on file Legal Sex Male 5:18 PM WARP DOFFER Gender Identity Not on file Sexual Orientation Not on file documented as of this encounter Plan of Treatment Upcoming Encounters Date Type Department Care Team (Late st Contact Info) Description 04/02/2025 11:00 AM CDT Appointment [facility] Ultrasound [place] [address] [place] [address] Roger Gimenez MD [address] [place] [address] 04/11/2025 9:30 AM CDT Office Visit [facility] Neurosurgery [address] [place] [address] [place] [address] Madhav Fuchs NP [address] [place] [address] 05/31/2025 8:00 AM WARP DOFFER Procedure visit [facility] [address] [place] [address] 09/04/2025 2:40 PM CDT Office Visit [facility] [address] [place] [address] Johan Nicholas FNP [address], [address] [place] [address] 11/15/2025 2:20 PM CDT Office Visit [facility] [address] [place] [address] Emiliana Ocampo MD [address] [place] [address] Pattie Brunson NP [address], [address] [place] [address] documented as of this encounter Visit Diagnoses Not on filedocumented in this encounter Care Teams Booking Clerk Relationship Specialty Start Date End Date Kalani Guillaume MD [address] [place] [address] PCP - General Family Practice 12/31/16 documented as of this encounter
--- OUTSIDE RECORDS SUMMARY | 2025-03-19 14:50 | XMS_ITS | Encounter Summary ---
Author Organization [facility] Address 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 Gender Identity Not on file Sexual Orientation Not on file documented as of this encounter Plan of Treatment Upcoming Encounters Date Type Department Care Team (Late Contact Info) Description 04/02/2025 11:00 AM CDT Appointment [facility] Ultrasound [place] [address] [place] [phone] Roger Gimenez MD [address] [facility] [address] [place] [address] 04/11/2025 9:30 AM CDT Office Visit [facility] Neurosurgery [address] [place] [address] [place] [address] Madhav Fuchs NP [address] [place] [address] 05/31/2025 8:00 AM APPLIED ANTHROPOLOGIST Procedure visit [facility] [address] [place] [address] 09/04/2025 2:40 PM CDT Office Visit [facility] [address] [place] [address] Johan Nicholas, [facility] [address], [address] [place] [address] 11/15/2025 2:20 PM CDT Office Visit [facility] [address] [place] [address] Emiliana Ocampo MD [address] [place] [address] Pattie Brunson NP [address], [address] [place] [address] documented as of this encounter Visit Diagnoses Not on filedocumented in this encounter Care Teams Chain Maker Loom Control Relationship Specialty Start Date End Date Kalani Guillaume MD [address] [place] [address] PCP - General Family Practice 12/31/16 documented as of this encounter
--- OUTSIDE RECORDS SUMMARY | 2025-03-19 14:50 | XMS_ITS | Encounter Summary ---
Author Organization [facility] Address [address] [place] [address] Care Team Providers Care Rn Home Health Name Role Phone Kalani Guillaume MD Primary Care Provider [phone] Reason for Referral * Outpatient Services (Routine) - Closed Specialty Diagnoses / Procedures Referred By Contac t Referred To Contact Diagnoses Peripheral vascular disease, unspecified Procedures US ANKLE PRESSURE INDEX Charity Ocampo MD NO ADDRESS ON FILE Referral ID Status Reason Start Date Expiration Date Visits Re quested Visits Authorized [id number] Closed 10/06/2012 11/06/2013 1 1 Encounter Details Date Type Department Care Team (Late st Contact Info) Description 10/06/2012 Ancillary Orders [facility] Cardiac Thoracic Vascular Surg [place] [address] [place] [address] Charity Ocampo MD NO ADDRESS ON FILE Peripheral vascular disease, unspecified (Primary Dx) Social History Tobacco Use Types Packs/Day Years Used Date Smoking Tobacco: Former Cigarettes Smokeless Tobacco: Never Alcohol Use Standard Drinks/Week Comments Yes 0 (1 standard drink = 0.6 oz pur e alcohol) Sex and Gender Information Value Date Recorded Sex Assigned at Not on file Legal Sex Male 3:37 AM CLINICAL COUNSELOR Gender Identity Not on file Sexual Orientation [...] MBA, FACS Interpreting:Charity Ocampo MD, MBA, FACS Car Customizer: Cody Mancilla RVT Indications: 443.9 Peripheral vascular [...] laboratory. Patient status: Outpatient. [facility] Study status: [...] MBA, FACS Interpreting:Charity Ocampo MD, MBA, FACS Car Customizer: Cody Mancilla RVT Indications: 443.9 Peripheral vascular [...] laboratory. Patient status: Outpatient. [facility] Study status: [...] Primary documented in this encounter Care Teams Rn Home Health Relationship Specialty Start Date End Date Kalani Guillaume MD [address] [place] [address] PCP - General Family Practice 12/31/16 documented as of this encounter
--- OUTSIDE RECORDS SUMMARY | 2025-03-19 14:50 | XMS_ITS | Encounter Summary ---
Author Organization [facility] Address [address] [place] [address] Care Team Providers Care Sewage Screen Operator Name Role Phone Kalani Guillaume MD Primary Care Provider + [phone] Reason for Visit * Reason Onset Date Comments Elevated HR 01/06/2023 Encounter Details Date Type Department Care Team (Late st Contact Info) Description 01/06/2023 Telephone [facility] [address] [facility] [address] [place] [address] Emiliana Ocampo MD [address] [facility] [address] [place] [address] Elevated HR Social History Tobacco Use Types Packs/Day Years Used Date Smoking Tobacco: Former Cigarettes Q uit: 06/01/1986 Smokeless Tobacco: Never Alcohol Use Standard Drinks/Week Comments Yes 14 (1 standard drink = 0.6 oz pu re alcohol) Sex and Gender Information Value Date Recorded Sex Assigned at Not on file Legal Sex Male 5:18 PM PARK SUPERINTENDENT Gender Identity Not on file Sexual Orientation [...] Dr Gimenez Person Calling: Jose Phone #: [phone] Relationship to patient: , on PHI Caller [...] Info) Description 04/02/2025 11:00 AM CDT Appointment [facility] Ultrasound [place] [address] [place] [phone] Roger Gimenez MD [address] [place] [address] 04/11/2025 9:30 AM CDT Office Visit [facility] Neurosurgery [address] [place] [address] [place] [address] Madhav Fuchs NP [address] [place] [address] 05/31/2025 8:00 AM PARK SUPERINTENDENT Procedure visit [facility] [address] [place] [address] 09/04/2025 2:40 PM CDT Office Visit [facility] [address] [place] [address] Johan Nicholas FNP [address] [place] [address] 11/15/2025 2:20 PM CDT Office Visit [facility] [address] [place] [address] Emiliana Ocampo MD [address] [place] [address] Pattie Brunson NP [address] [place] [address] documented as of this encounter Visit Diagnoses Not on filedocumented in this encounter Care Teams Sewage Screen Operator Relationship Specialty Start Date End Date Kalani Guillaume MD [address] [place] [address] PCP - General Family Practice 12/31/16 documented as of this encounter
--- OUTSIDE RECORDS SUMMARY | 2025-03-19 14:51 | XMS_ITS | Encounter Summary ---
Author Organization [facility] Address [address] [place] [address] Care Team Providers Care Ice Puller Name Role Phone Kalani Guillaume MD Primary Care Provider Encounter Details Date Type Department Care Team (Latest Contact Info) Description 06/19/2004 Outpatient Historical [facility] Orthopedics- [address] [place] [address] [place] [address] Jace Lilly MD [address] [place] [phone] LOC PRIM OSTEOART-PELVIS (Primary Dx); Hip joint replacement; Aftercare joint replacement Social History Tobacco Use Types Packs/Day Years Used Date Smoking Tobacco: Never Assessed Sex and Gender Information Value Date Recorded Sex Assigned at Not on file Legal Sex Male 3:37 AM ENVELOPE MAKER Gender Identity Not on file Sexual Orientation Not on file documented as of this encounter Plan of Treatment Not on file documented as of this encounter Visit Diagnoses Diagnosis Primary localized osteoarthrosis, pelvic region and thigh- Primary Hip joint replacement Hip joint replacement by other means Aftercare joint replacement Aftercare following joint replacement documented in this encounter Care Teams Ice Puller Relationship Specialty Start Date End Date Kalani Guillaume MD [address] [place] [address] PCP - General Family Practice 12/31/16 documented as of this encounter
--- OUTSIDE RECORDS SUMMARY | 2025-03-19 14:51 | XMS_ITS | Encounter Summary ---
Author Organization [facility] Address [address] [place] [address] Care Team Providers Care Director Of Counseling Name Role Phone Kalani Guillaume MD Primary Care Provider [phone] Encounter Details Date Type Department Care Team (Latest Contact Info) Description 04/01/2004 Outpatient Historical [address] [phone] Bob Noel MD [address] [place] [address] CERVICALGIA (Primary Dx); BACKACHE NOS; Lumbosacral spondylosis; LUMB/LUMBOSAC DISC DEGEN Social History Tobacco Use Types Packs/Day Years Used Date Smoking Tobacco: Never Assessed Sex and Gender Information Value Date Recorded Sex Assigned at Not on file Legal Sex Male 3:37 AM MANAGEMENT ANALYST Gender Identity Not on file Sexual Orientation Not on file documented as of this encounter Plan of Treatment Not on file documented as of this encounter Visit Diagnoses Diagnosis Cervicalgia- Primary Backache, unspecified 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
--- OUTSIDE RECORDS SUMMARY | 2025-03-19 14:51 | XMS_ITS | Patient Health Record ---
Author Organization [facility] Address [address] [place] [address] Care Team Providers Care Salmon Troll Fisher Name Role Phone AundreaKalani Primary Care Provider UnavailRuddy Parker Unavailable [phone] Migration, Provider Unavailable Unavailable Reynaldo Sweet Unavailable [phone] Serafin Sherwood Unavailable [phone] Tico Khanna Unavailable [phone] Sharona Farris Unavailable [phone] Karen Pineda Unavailable [phone] Allergies Allergen (clinical drug ingredient) Drug/Non Drug Allergy documented on EMR Reaction Allergy Type Onset Date Status Iodine Unknown Drug Allergy Active Adhesive Unknown Allergy Active meperidine Meperidine Unknown Drug Allergy Activ e morphine Morphine Unknown Drug Allergy Active Results Component Value Reference Range Flag Notes Urine Drug Screen (cup read) - 73732 Reviewed date:10/05/2024 12:56:42 PM Interpretation:Negative Performing Lab: Notes/Report: Negative Urine Confirmation Panel (in strument) - 59502 Reviewed date:10/10/2024 11:05:57 AM Interpretation: Performing Lab: [...] the U.S. Food and Drug Administration. Gabapentin >74374 <225 ng/mL > This test was developed [...] by the U.S. Food and Drug Administration. CTA AFRO w/ + w/o Contrast-7 5635 (Not yet reviewed by provider) Interpretation: Performing Lab: Notes/Report: [id number]=iSite US Doppler Scan Arterial LE Bilat-27099 (Not yet reviewed by provider) Interpretation: Performing Lab: Notes/Report: [id number] US Doppler Scan Arterial LE Bilat-94219 (Not yet reviewed by provider) Interpretation: Performing Lab: Notes/Report: This report was dictated at the [facility] FINAL REPORT Read This report was dictated at the [facility] zzzUrine Drug Screen (confir mation by instrument) - 37473 Reviewed date:06/08/2024 12:07:11 PM Interpretation: Performing Lab: Notes/Report: Schedule Confirmation (Not y et reviewed by provider) Interpretation: Performing Lab: Notes/Report: CTA AFRO w/ + w/o Contrast Blood Urea Nitrogen (BUN) 84 520 Reviewed date:03/01/2025 04:53:46 PM Interpretation: Performing Lab: Notes/Report: Diagnosis Description: 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 G-dzgujw-c-benzoquinon e imine (NAPQI) is a metabolite of [...] the CKD-EPI Creatinine Equation(2020) to estimate GFR. Schedule Confirmation (Not y et reviewed by provider) Interpretation: Performing Lab: Notes/Report: CTA AFRO w/ + w/o Contrast Urine Confirmation Panel (in strument) - 77922 Reviewed date:10/30/2024 02:45:33 PM Interpretation: Performing Lab: [...] the U.S. Food and Drug Administration. Gabapentin >63482 <225 ng/mL > This test was developed [...] date:08/17/2024 03:02:38 PM Interpretation: Performing Lab: Notes/Report: Tox Results Reviewed date:10/10/2024 02:27:01 PM Interpretation: Performing Lab: Notes/Report: Tox Results Reviewed date:02/06/2025 02:37:29 PM Interpretation: [...] post hydration Read See Below For Report Schedule Confirmation (Not y et reviewed by provider) Interpretation: Performing Lab: Notes/Report: CTA AFRO w/ + w/o Contrast Urine Confirmation Panel (in strument) - 59098 Reviewed date:02/06/2025 02:53:35 PM Interpretation: Performing Lab: [...] the U.S. Food and Drug Administration. Gabapentin >23556 <225 ng/mL > This test was developed [...] Administration. Urine Drug Screen (cup read) - 90277 Reviewed date:02/01/2025 01:18:08 PM Interpretation: Performing Lab: Notes/Report: OPI + zzzUrine Drug Screen (confir mation by instrument) - 29256 Reviewed date:08/04/2024 09:29:41 AM Interpretation: Performing Lab: Notes/Report: Reason For Referral Reason Nature lower extremi ty peripheral vascular disease: Evaluation and treat Diagnosis 1 Peripheral vascular disease (I73.9) Referral Organization [facility] Referring Provider First Name Serafin Referring Provider Last Name Loyda Referring Provider Speciality Orthopedic Surgery Referred Organization [facility] Referred Provider Tico Khanna Referred Address [address] [place] [address] [address],[place], [place],[address], Referred Provider Specialty Vascular Shira ba General Notes Dannielle Posey 07/2023 08:40:40 AM >Appointment with Dr. Doshi on 06/08 Referral Priority Routine Reason peripheral artery di sease - no testing found Diagnosis 1 Peripheral vascular disease (I73.9) Referring Provider First Name SERAFIN Referring Provider Last Name LOYDA Referring Provider Speciality Orthopedic Surgery Referred Organization [facility] Referred Provider Tico Khanna Referred Address [address] [place] [address] [address],[place], [place],[address], Referred Provider Specialty Vascular Shira ba General Notes Janett Ayala 05/05/20 11:34:25 AM >please schedule with Jamie Nowak Lisa 05/05/2024 11:34:50 AM >may need LEAD and/or ABILars sullivan Brittany M 05/09/2024 04:17:09 PM >Called patient Lars LE Brittany M 05/10/2024 07:57:38 AM >Appointment scheduled on 06.08 @ 2:00 Referral Priority Routine Medications Medication SIG (Take, Route, Frequency, Duration) Notes Start Date End Date Status HYDROcodone-Acetaminophe n 5-325 MG Tablet 1 tablet Orally every 6 hrs; Duration: 30 days As needed Do not exceed 4 per day Fill on 03/10/2025 02/01/2025 Active Isosorbide Mononitrate *Pick strength-form from [facility] for eRX* Unknown Indomethacin *Pick strength-form from [facility] for eRX* Unknown Hydralazine *Reorder from [facility] for eRx and Interaction Alerts* Unknown Gabapentin *Pick strength-form from [facility] for eRX* Unknown Furosemide *Pick strength-form from [facility] for eRX* Unknown Fluticasone Propionate 50 MCG/ACT Suspension 1 spray in each nostril Nasally Twice a day Unknown NIFEdipine *Pick strength-form from [facility] for eRX* Unknown Metoprolol Succinate *Pick strength-form from [facility] for eRX* Unknown methylPREDNISolone 32 MG Tablet 1 tablet Orally 12 hours before CTA and 2 hours before CTA; Duration: 2 days 05/25/2024 Unknown Cranberry Extract *Pick strength-form from [facility] for eRX* Unknown Lansoprazole *Pick strength-form from [facility] for eRX* Unknown Budesonide-Formoterol Fumarate 160-4.5 MCG/ACT Aerosol 1 puff as needed Inhalation every 4 hrs Unknown Aspirin *Pick strength-form from [facility] for eRX* Unknown Ascorbic Acid 1000 MG Tablet 1 tablet Orally Once a day Unknown Allopurinol 300 MG Tablet 1 tablet Orally Once a day Unknown Albuterol Sulfate *Pick strength-form from [facility] for eRX* Unknown Acetaminophen *Pick strength-form from [facility] for eRX* Unknown sulfaSALAzine *Pick strength-form from [facility] for eRX* Unknown Rosuvastatin *Reorder from [facility] for eRx and Interaction Alerts* Unknown Rivaroxaban 15 MG Tablet 1 tablet with food Orally Once a day Unknown predniSONE 5 MG/ML Concentrate 1 mL Orally Once a day Unknown Potassium Chloride *Pick strength-form from [facility] for eRX* Unknown Nitroglycerin *Pick strength-form from [facility] for eRX* Unknown fexofenadine *Reorder from [facility] for eRx and Interaction Alerts* Unknown Xarelto *Pick strength-form from [facility] for eRX* Unknown Ferrous Sulfate 325 (65 Fe) MG Tablet 1 tablet Orally Three times a Week Unknown Vitamin D3 *[facility] Unknown Elderberry Immune Health *[facility] and Interaction Alerts* Unknown Vitamin B Complex *Pick strength-form from [facility] for eRX* Unknown Vitamin A *Pick strength-form from [facility] for eRX* Unknown Tamsulosin HCl 0.4 MG [...] Status Risk Notes Problem Chronic pain syndrome (985855290) Chronic pain syndrome (G89.4) 12/07/19 24 Active confirmed Problem Intermittent claudication of left lower limb co-occurrent and due to atherosclerosis (finding) (44534115216500490 ) 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, left leg (I70.212) Active confirmed Problem High risk drug monitoring status (822598075) manager terminal (current) use of opiate analgesic (Z79.891) Active confirmed Problem Osteoarthritis of right knee joint (997761265861628) Osteoarthritis of right knee, unspecified osteoarthritis type (M17.11) Active confirmed Problem Arthritis of both knees (2913438871197851) Arthritis of both knees (M17.0) Active confirmed Problem Peripheral vascular disease (638079486) Peripheral vascular disease (I73.9) Active confirmed Problem Osteoarthritis of left knee joint (422753776528081) Osteoarthritis of left knee, unspecified osteoarthritis type (M17.12) Active confirmed Problem Abnormal gait (92149251) Abnormality of gait and mobility (R26.9) Active [...] 11/29/2024 Encounters Encounter Location Date Provider Diagnosis [facility] [address] [place] [place] [address] 05/24/2024 [facility] [place] [address] [place] [address] 04/13/2024 Karen Pineda [facility] [address] [place] [address] 05/05/2024 Serafin Sherwood Arthritis of both knees M17.0 and Peripheral vascular disease I73.9 [facility] [address] [place] [place] [address] 05/24/2024 Tico Khanna Peripheral vascular disease I73.9 [facility] [address] [place] [address] 05/26/2024 Serafin Sherwood Arthritis of both knees M17.0 and Peripheral vascular disease I73.9 [facility] [place] [address] [place] [address] 05/31/2024 Ruddy Saini Chronic pain syndrom e G89.4 ; 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 ; Osteoarthritis of left knee, unspecified osteoarthritis type M17.12 ; Osteoarthritis of right knee, unspecified osteoarthritis type M17.11 and jail (current) use of opiate analgesic Z79.891 [facility] [address] [place] [address] 06/27/2024 Tico Cheta Peripheral vascular disease I73.9 [facility] [address] [place] [address] 07/21/2024 Serafin Sherwood Arthritis of both knees M17.0 [facility] [place] [address] [place] [address] 07/26/2024 Ruddy Saini Chronic pain syndrom e G89.4 ; 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 ; Osteoarthritis of right knee, unspecified osteoarthritis type M17.11 ; Osteoarthritis of left knee, unspecified osteoarthritis type M17.12 and manager terminal (current) use of opiate analgesic Z79.891 [facility] [place] [address] [place] [address] 10/05/2024 Karen Pineda Chronic pain syndrom e G89.4 ; 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 ; Osteoarthritis of right knee, unspecified osteoarthritis type M17.11 ; Osteoarthritis of left knee, unspecified osteoarthritis type M17.12 and jail (current) use of opiate analgesic Z79.891 [facility] [place] [address] [place] [address] 11/29/2024 Ruddy Saini Chronic pain syndrom e G89.4 ; 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 ; Osteoarthritis of right knee, unspecified osteoarthritis type M17.11 ; Osteoarthritis of left knee, unspecified osteoarthritis type M17.12 and jail (current) use of opiate analgesic Z79.891 [facility] [place] [address] [place] [address] 02/01/2025 Karen Pineda Chronic pain syndrom e G89.4 ; 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 ; Osteoarthritis of right knee, unspecified osteoarthritis type M17.11 ; Osteoarthritis of left knee, unspecified osteoarthritis type M17.12 and jail (current) use of opiate analgesic Z79.891 [facility] 0 0 04/08/2024 Provider Migration [facility] 0 0 04/09/2024 Provider Migration [facility] [address] [place] [place] [address] 05/09/2024 Tico Khanna [facility] [address] [place] [place] [address] 05/25/2024 Tico Khanna 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, left leg I70.212 [facility] [place] [address] [place] [address] 06/02/2024 Ruddy Saini [facility] [place] [address] [place] [address] 2024 Ruddy Saini [facility] [place] [address] [place] [address] 2024 Ruddy Saini Chronic pain syndrom e G89.4 [facility] [address] [place] [place] [address] 06/08/2024 Tico Khanna [facility] [place] [address] [place] [address] 10/05/2024 Ruddy Saini [facility] [place] [address] [place] [address] 02/01/2025 Ruddy Saini Osteoarthritis of right knee, [...] am going to refer him to the [place] vascular clinic for evaluation. 05/05/2024 Peripheral vascular [...] further delineate his anatomy. 05/25/2024 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, left [...] with discogenic back pain (ICD-10 - M51.360) 06/27/2024 Peripheral vascular disease (ICD-10 - I73.9) [...] function. 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 [...] effects are noted. Last UDS and [place] [facility] [employer]ATMENT TEACHER reviewed today. Patient is advised that best [...] discogenic back pain (ICD-10 - M51.360) 11/29/2024 Chronic pain syndrome (ICD-10 - G89.4) [...] effects are noted. Last UDS and [place] [facility] [employer] [employer]AT[facility] TEACHER reviewed today. Patient is advised that best [...] unspecified osteoarthritis type (ICD-10 - M17.11) 10/05/2024 Chronic pain syndrome (ICD-10 - G89.4) [...] effects are noted. Last UDS and [place] [facility] TREATMENT TEACHER reviewed today. Patient is advised that best [...] has been made aware of this policy. 2024 Chronic pain syndrome (ICD-10 - G89.4) 10/05/2024 Degeneration of intervertebral disc of lumbar region with discogenic back pain (ICD-10 - M51.360) 11/29/2024 Degeneration of intervertebral disc of lumbar region with discogenic back pain (ICD-10 - M51.360) 02/01/2025 Degeneration of intervertebral disc of lumbar region with discogenic back pain (ICD-10 - M51.360) 05/31/2024 Osteoarthritis of left knee, unspecified osteoarthritis type (ICD-10 - M17.12) 07/26/2024 Osteoarthritis of right knee, unspecified osteoarthritis type (ICD-10 - M17.11) 07/26/2024 Osteoarthritis of left knee, unspecified osteoarthritis type (ICD-10 - M17.12) 05/31/2024 Osteoarthritis of right knee, unspecified osteoarthritis type (ICD-10 - M17.11) 10/05/2024 Osteoarthritis of right knee, unspecified osteoarthritis type (ICD-10 - M17.11) 02/01/2025 Osteoarthritis of right knee, unspecified osteoarthritis type (ICD-10 - M17.11) 11/29/2024 Osteoarthritis of right knee, unspecified osteoarthritis type (ICD-10 - M17.11) 11/29/2024 Osteoarthritis of left knee, unspecified osteoarthritis type (ICD-10 - M17.12) 02/01/2025 Osteoarthritis of left knee, unspecified osteoarthritis type (ICD-10 - M17.12) 10/05/2024 Osteoarthritis of left knee, unspecified osteoarthritis type (ICD-10 - M17.12) 07/26/2024 manager terminal (current) use of opiate analgesic (ICD-10 - [...] by our urine testing policy. 05/31/2024 manager terminal (current) use of opiate analgesic (ICD-10 - Z79.891) 10/05/2024 jail (current) use of opiate analgesic (ICD-10 - Z79.891) 02/01/2025 manager terminal (current) use of opiate analgesic (ICD-10 - Z79.891) 11/29/2024 jail (current) use of opiate analgesic (ICD-10 - Z79.891) 05/31/2024 Other Todd Martin am scribing for Ruddy Saini. Ruddy Mratin, personally performed the services described in this [...] Name Order Date Blood Urea Nitrogen (BUN) 54402 05/25/20 24 Creatinine (B) 44041 05/25/2024 CTA AFRO w/ + w/o Contrast-21446 025 CTA AFRO w/ + w/o Contrast-24152 024 US Doppler Scan Arterial LE Bilat-05532 05/24/2024 US Doppler Scan Arterial LE Bilat-52704 05/24/2024 Schedule Confirmation 06/08/2024 Schedule Confirmation 06/22/2024 Schedule Confirmation 06/27/2024 Schedule Confirmation 06/27/2024 Next Appt Details Provider Name:Karen Velez Concetta sadler, 04/05/2025 11:00:00 AM, [address] [place], [address], Insurance Providers Payer Name Payer Address Payer Phone Subscriber Number Group Number Insured Name Patient Relationship to Insured Coverage Start Date Coverage End Date [employer] Replacement [address] [address] [place] [address] [id number] Juan M Sierra Self - patient [...]
--- OUTSIDE RECORDS SUMMARY | 2025-03-19 14:51 | XMS_ITS | Encounter Summary ---
Author Organization [facility] Address [address] [place] [address] Care Team Providers Care Caustic Purification Operator Name Role Phone Kalani Guillaume MD Primary Care Provider [phone] Reason for Referral * Radiology Services (Routine) - Closed Specialty Diagnoses / Procedures Referred By Contac t Referred To Contact Radiology Diagnoses Stage 3b chronic kidney disease (CMS/HCC) Procedures US RENAL + DOPPLER US RETROPERITONEAL COMPLETE CHG US, RETROPERITNL ABD, LTD [place] DUPLEX ABD/PEL VASC STUDY,LIMITD Darrell Bashir MD [facility] [address] [place] [address] Phone: tel: fax: Referral ID Status Reason Start Date Expiration Date V isits Requested Visits Authorized [id number] Closed F CTS to Schedule 08/09/2020 09/09/2021 1 1 NE DYNAMOMETER TESTER Encounter Details Date Type Department Care Team (Latest Contact Info) Description 08/09/2020 Ancillary Orders [facility] Pre-Registration [place] CALL TO MAKE APPOINTMENT ONLY [address] [place] [address] Darrell Bashir MD NO ADDRESS [...] on file Legal Sex Male 3:37 AM ENGINE DYNAMOMETER TESTER Gender Identity Not on file Sexual Orientation Not on file Occupation Industry Job Start Date Job End Date Not on file Not on file Not on file Not on file COVID-19 Exposure Response Date Recorded In the last month, have you been in contact with someone who was confirmed or suspected to have Coronavirus / COVID-19? No / Unsure 08/06/2020 11:49 AM ENGINE DYNAMOMETER TESTER documented as of this encounter Plan of Treatment Not on file documented as of this encounter Results * US RENAL + DOPPLER (08/20/2020 1:17 PM ENGINE DYNAMOMETER TESTER) Anatomical Region Laterality Modality Abdomen Ultrasound 08/20/2020 1:17 PM ENGINE DYNAMOMETER TESTER Impressions 08/21/2020 11:27 AM ENGINE DYNAMOMETER TESTER IMPRESSION: Bilateral renal cortical thinning and bilateral renal cysts. Normal renal Doppler analysis. Narrative 08/21/2020 11:27 AM ENGINE DYNAMOMETER TESTER Exam: US RENAL + DOPPLER Date/Time of [...] (CMS/HCC) documented in this encounter Care Teams Caustic Purification Operator Relationship Specialty Start Date End Date Kalani Guillaume MD [address] [place] [address]22 PCP - General Family Practice 12/31/16 documented as of this encounter
--- OUTSIDE RECORDS SUMMARY | 2025-03-19 14:51 | XMS_ITS | Encounter Summary ---
Author Organization [facility] Address [address] [place] [address] Care Team Providers Care Skimmer Reverberatory Name Role Phone Kalani Guillaume MD Primary Care Provider [phone] Encounter Details Date Type Department Care Team (Late st Contact Info) Description 04/17/2008 [facility] [address] [place] [address] [place] Matias MD NO ADDRESS ON FILE Social History Tobacco Use Types Packs/Day Years Used Date Smoking Tobacco: Never Assessed Sex and Gender Information Value Date Recorded Sex Assigned at Not on file Legal Sex Male 3:37 AM BOAT PERSON Gender Identity Not on file Sexual Orientation Not on file documented as of this encounter Plan of Treatment Not on file documented as of this encounter Procedures Procedure Name Priority Date/Time Associated Diagnosis Comments COMPREHENSIVE METABOLIC PANEL Stat 04/17/2008 3:58 PM BOAT PERSON documented in this encounter Results * (ABNORMAL) COMPREHENSIVE METABOLIC PANEL (04/17/2008 3:58 PM BOAT PERSON) ALBUMIN/GLOBULIN RATIO 1.7 1.0 - 2.3 [facility] TOTAL PROTEIN 6.9 6.3 - 8.2 g/dL [facility] SODIUM 141 136 - 145 mEq/L [facility] BILIRUBIN TOTAL 0.5 0.3 - 1.2 mg/dL [facility] BUN 25(H) 9 - 20 mg/dL [facility] CO2 26 22 - 32 mmol/l [facility] ANION GAP 12 9 - 20 mEq/L [facility] AST 46(H) 8 - 33 U/L [facility] POTASSIUM 4.8 3.5 - 5.0 mEq/L [facility] GLOBULIN (CALC) 2.6 2.4 - 3.9 g/dL [facility] ALBUMIN 4.3 3.5 - 5.0 g/dL [facility] CREATININE 1.5 0.7 - 1.5 mg/dL [facility] ALT 55(H) 4 - 36 IU/L [facility] CALCIUM 9.3 8.4 - 10.5 mg/dL [facility] OSMOLALITY, CALCULATED 296(H) 275 - 295 mOsm/Kg [facility] GLUCOSE 105 70 - 110 mg/dL [facility] ALKALINE PHOSPHATASE 69 25 - 100 U/L [facility] CHLORIDE 108 95 - 110 mEq/L [facility] Blood specimen (specimen) 04/17/2008 3:58 PM BOAT PERSON 04/17/2008 4:36 PM BOAT PERSON Raymond Mtaias MD CHEMISTRY ORDERABLES Final Result Performing Organization Address City/State/[facility] Co de Phone Number INTERFACE SYSTEM Refer to clinic/hospital department [facility] CLIA# [id number] [address] [place] [id number] documented in this encounter Visit Diagnoses Not on filedocumented in this encounter Care Teams Skimmer Reverberatory Relationship Specialty Start Date End Date Kalani Guillaume MD [address] [place] [address] PCP - General Family Practice 12/31/16 documented as of this encounter
--- OUTSIDE RECORDS SUMMARY | 2025-03-19 14:51 | XMS_ITS | Encounter Summary ---
Author Organization [facility] Address [address] [place] [address] Care Team Providers Care Real Estate Agency Licensee Name Role Phone Kalani Guillaume MD Primary Care Provider Encounter Details Date Type Department Care Team (Latest Contact Info) Description 08/02/2006 Outpatient Historical [facility] Cardiology Ancillary Services[place] [address] [place] [address] Dayo Simms MD [address] [facility] [address] [place] [address] Other and Unspecified Angina Pectoris (Primary Dx); Coronary Atherosclerosis of [place] Coronary Artery Social History Tobacco Use Types Packs/Day Years Used Date Smoking Tobacco: Never Assessed Sex and Gender Information Value Date Recorded Sex Assigned at Not on file Legal Sex Male 3:37 AM CLARITY DEVELOPER Gender Identity Not on file Sexual Orientation Not on file documented as of this encounter Plan of Treatment Not on file documented as of this encounter Visit Diagnoses Diagnosis Other and unspecified angina pectoris- Primary Coronary atherosclerosis of [place] coronary artery documented in this encounter Care Teams Real Estate Agency Licensee Relationship Specialty Start Date End Date Kalani Guillaume MD [address] [place] [address] PCP - General Family Practice 12/31/16 documented as of this encounter
--- OUTSIDE RECORDS SUMMARY | 2025-03-19 14:51 | XMS_ITS | Encounter Summary ---
Author Organization [facility] Address [address] [place] [address] Care Team Providers Care Assistant Center Manager Name Role Phone Kalani Guillaume MD Primary Care Provider [phone] Encounter Details Date Type Department Care Team (Latest Contact Info) Description 08/02/2006 Outpatient Historical [facility] Cardiovascular Services [address] [place] [address] Roger Gimenez MD [address] [facility] [address] [place] [address] Pain in Soft Tissues of Limb (Primary Dx) Social History Tobacco Use Types Packs/Day Years Used Date Smoking Tobacco: Never Assessed Sex and Gender Information Value Date Recorded Sex Assigned at Not on file Legal Sex Male 3:37 AM ONCOLOGY TECHNICIAN Gender Identity Not on file Sexual Orientation Not on file documented as of this encounter Plan of Treatment Not on file documented as of this encounter Visit Diagnoses Diagnosis Pain in limb- Primary documented in this encounter Care Teams Assistant Center Manager Relationship Specialty Start Date End Date Kalani Guillaume MD [address] [place] [address] PCP - General Family Practice 12/31/16 documented as of this encounter
--- OUTSIDE RECORDS SUMMARY | 2025-03-19 14:51 | XMS_ITS | Encounter Summary ---
Author Organization [facility] Address [address] [place] [address] Care Team Providers Care Sound Mixer Name Role Phone Kalani Guillaume MD Primary Care Provider Encounter Details Date Type Department Care Team (Latest Contact Info) Description 08/02/2006 Outpatient Historical [facility]- [place] [address] [place] [address] Rain Murillo, BOATSWAINS MATE [address] [place] [address] Coronary Atherosclerosis of [place] Coronary Artery (Primary Dx); Unspecified Chronic Ischemic Heart Disease; Unspecified Peripheral Vascular Disease; Unspecified Essential Hypertension Social History Tobacco Use Types Packs/Day Years Used Date Smoking Tobacco: Never Assessed Sex and Gender Information Value Date Recorded Sex Assigned at Not on file Legal Sex Male 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
--- OUTSIDE RECORDS SUMMARY | 2025-03-19 14:51 | XMS_ITS | Encounter Summary ---
Author Organization [facility] Address [address] [place] [address] Care Team Providers Care Rotoformer Backtender Name Role Phone Kalani Guillaume MD Primary Care Provider Encounter Details Date Type Department Care Team (Latest Contact Info) Description 06/19/2003 [facility] [address] [place] [address] Jace Lilly MD [address] [place] [phone] PREOP CARDIOVASC EXAM (Primary Dx) Social History Tobacco Use Types Packs/Day Years Used Date Smoking Tobacco: Never Assessed Sex and Gender Information Value Date Recorded Sex Assigned at Not on file Legal Sex Male 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
--- OUTSIDE RECORDS SUMMARY | 2025-03-19 14:51 | XMS_ITS | Encounter Summary ---
Author Organization [facility] Address [address] [place] [address] Care Team Providers Care Animal Doctor Name Role Phone Kalani Guillaume MD Primary Care Provider Encounter Details Date Type Department Care Team (Latest Contact Info) Description 03/06/2004 Outpatient Historical [facility] Bob Noel MD [address] [place] [address] [place] [address] DISC DIS NEC/NOS-LUMBAR (Primary Dx) Social History Tobacco Use Types Packs/Day Years Used Date Smoking Tobacco: Never Assessed Sex and Gender Information Value Date Recorded Sex Assigned at Not on file Legal Sex Male 3:37 AM STONE SANDBLASTER Gender Identity Not on file Sexual Orientation Not on file documented as of this encounter Plan of Treatment Not on file documented as of this encounter Visit Diagnoses Diagnosis 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
--- OUTSIDE RECORDS SUMMARY | 2025-03-19 14:51 | XMS_ITS | Encounter Summary ---
Author Organization [facility] Address [address] [place] [address] Care Team Providers Care Logistics Project Manager Name Role Phone Kalani Guillaume MD Primary Care Provider Encounter Details Date Type Department Care Team (Latest Contact Info) Description 11/19/2003 Outpatient Historical [facility]- 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
--- OUTSIDE RECORDS SUMMARY | 2025-03-19 14:51 | XMS_ITS | Encounter Summary ---
Author Organization [facility] Address [address] [place] [address] Care Team Providers Care Delivery And Installation Subcontractor Name Role Phone Kalani Guillaume MD Primary Care Provider [phone] Encounter Details Date Type Department Care Team (Latest Contact Info) Description 12/06/2003 Outpatient Historical [facility] Orthopedics- [address] [place] [address] Jace Lilly MD [address] [place] [phone] JOINT PAIN-L/LEG (Primary Dx); LOC PRIM OSTEOART-L/LEG; CERVICALGIA Social History Tobacco Use Types Packs/Day Years Used Date Smoking Tobacco: Never Assessed Sex and Gender Information Value Date Recorded Sex Assigned at Not on file Legal Sex Male 3:37 AM BREAKER UP Gender Identity Not on file Sexual Orientation Not on file documented as of this encounter Plan of Treatment Not on file documented as of this encounter Visit Diagnoses Diagnosis Pain in joint, lower leg- Primary Primary localized osteoarthrosis, lower leg Cervicalgia documented in this encounter Care Teams Delivery And Installation Subcontractor Relationship Specialty Start Date End Date Kalani Guillaume MD [address] [place] [address] PCP - General Family Practice 12/31/16 documented as of this encounter
--- OUTSIDE RECORDS SUMMARY | 2025-03-19 14:51 | XMS_ITS | Encounter Summary ---
Author Organization [facility] Address [address] [place] [address] Care Team Providers Care Gimp Buttonhole Machine Operator Name Role Phone Kalani Guillaume MD Primary Care Provider [phone] Encounter Details Date Type Department Care Team (Latest Contact Info) Description 01/31/2007 Outpatient Historical [facility] Cardiology- [place] [address] [place] [address] Roger Gimenez MD [address] [facility] [address] [place] [address] Unspecified Chronic Ischemic Heart Disease (Primary Dx); Benign Hypertension; Other and Unspecified Angina Pectoris; Other and Unspecified Hyperlipidemia Social History Tobacco Use Types Packs/Day Years Used Date Smoking Tobacco: Never Assessed Sex and Gender Information Value Date Recorded Sex Assigned at Not on file Legal Sex Male 3:37 AM PIE CHEF Gender Identity Not on file Sexual Orientation Not on file documented as of this encounter Plan of Treatment Not on file documented as of this encounter Visit Diagnoses Diagnosis Chronic ischemic heart disease, unspecified- Primary Benign hypertension Essential hypertension, benign Other and unspecified angina pectoris Other and unspecified hyperlipidemia documented in this encounter Care Teams Gimp Buttonhole Machine Operator Relationship Specialty Start Date End Date Kalani Guillaume MD [address] [place] [address] PCP - General Family Practice 12/31/16 documented as of this encounter
--- OUTSIDE RECORDS SUMMARY | 2025-03-19 14:51 | XMS_ITS | Encounter Summary ---
Author Organization [facility] Address [address] [place] [address] Care Team Providers Care Paid Search Analyst Name Role Phone Kalani Guillaume MD Primary Care Provider [phone] Encounter Details Date Type Department Care Team ([facility] Contact Info) Description 03/12/2025 Orders Only [facility] [address] [place] [address] Provider, Abstract NO ADDRESS ON FILE Social [...] on file Legal Sex Male 5:18 PM SCUDDING INSPECTOR Gender Identity Not on file Sexual Orientation Not on file documented as of this encounter Plan of Treatment Upcoming Encounters Date Type Department Care Team (Late Contact Info) Description 04/02/2025 11:00 AM CDT Appointment [facility] [address] [place] [address] Roger Gimenez MD [address] [place] [address] 04/11/2025 9:30 AM CDT Office Visit [facility] Neurosurgery [address] [place] [address] Madhav Fuchs NP [address] [place] [address] 05/31/2025 8:00 AM SCUDDING INSPECTOR Procedure visit [facility] [address] [place] [address] 09/04/2025 2:40 PM CDT Office Visit [facility] [address] [place] [address] Johan Nicholas FNP [address], [address] [place] [address] 11/15/2025 2:20 PM CDT Office Visit [facility] [address] [place] [address] Emiliana Ocampo MD [address] [place] [address] Pattie Brunson NP [address], [address] [place] [address] documented as of this encounter Procedures Procedure Name Priority Date/Time Associated Diagnosis Comments COMPREHENSIVE METABOLIC PANEL Routine 03/10/2025 10:04 AM CDT documented in this encounter Results * COMPREHENSIVE METABOLIC PANEL (03/10/2025 10:04 AM CDT) Blood us Abstract Provider CHEMISTRY ORDERABLES Final Res ult documented in this encounter Visit Diagnoses Not on filedocumented in this encounter Care Teams Paid Search Analyst Relationship Specialty Start Date End Date Kalani Guillaume MD [address] [place] [address] PCP - General Family Practice 12/31/16 documented as of this encounter
--- OUTSIDE RECORDS SUMMARY | 2025-03-19 14:51 | XMS_ITS | Encounter Summary ---
Author Organization [facility] Address [address] [place] [address] Care Team Providers Care Pastry Wrapper Name Role Phone Kalani Guillaume MD Primary Care Provider [phone] Encounter Details Date Type Department Care Team (Latest Contact Info) Description 08/09/2003 Outpatient Historical [facility] Orthopedics- [address] [place] [address] Jace Lilly MD [address] [place] [phone] LOC OSTEOARTH NOS-L/LEG (Primary Dx) Social History Tobacco Use Types Packs/Day Years Used Date Smoking Tobacco: Never Assessed Sex and Gender Information Value Date Recorded Sex Assigned at Not on file Legal Sex Male 3:37 AM RAP ARTIST Gender Identity Not on file Sexual Orientation Not on file documented as of this encounter Plan of Treatment Not on file documented as of this encounter Visit Diagnoses Diagnosis Localized osteoarthrosis not specified whether primary or secondary, lower leg- Primary documented in this encounter Care Teams Pastry Wrapper Relationship Specialty Start Date End Date Kalani Guillaume MD [address] [place] [address] PCP - General Family Practice 12/31/16 documented as of this encounter
--- OUTSIDE RECORDS SUMMARY | 2025-03-19 14:51 | XMS_ITS | Encounter Summary ---
Author Organization [facility] Address [address] [place] [address] Care Team Providers Care Supervisor Multifocal Lens Name Role Phone Kalani Guillaume MD Primary Care Provider Encounter Details Date Type Department Care Team (Late st Contact Info) Description 06/27/2003 Inpatient Historical [facility] Jace Lilly MD [address] [place] [address] LOC OSTEOARTH NOS-PELVIS (Primary Dx) Social History Tobacco Use Types Packs/Day Years Used Date Smoking Tobacco: Never Assessed Sex and Gender Information Value Date Recorded Sex Assigned at Not on file Legal Sex Male 3:37 AM RN TRAUMA Gender Identity Not on file Sexual Orientation Not on file documented as of this encounter Plan of Treatment Not on file documented as of this encounter Visit Diagnoses Diagnosis Localized osteoarthrosis not specified whether primary or secondary, pelvic region and thigh- Primary documented in this encounter Care Teams Supervisor Multifocal Lens Relationship Specialty Start Date End Date Kalani Guillaume MD [address] [place] [address] PCP - General Family Practice 12/31/16 documented as of this encounter
--- OUTSIDE RECORDS SUMMARY | 2025-03-19 14:51 | XMS_ITS | Encounter Summary ---
Author Organization [facility] Address [address] [place] [address] Care Team Providers Care Binitrotoluene Operator Name Role Phone Kalani Guillaume MD Primary Care Provider Encounter Details Date Type Department Care Team (Latest Contact Info) Description 02/19/2004 Outpatient Historical [facility] [address] [place] [address] Bob Noel MD [address] [place] [address] CERVICALGIA (Primary Dx); Cervical spondylosis; BACKACHE NOS; Lumbosacral spondylosis Social History Tobacco Use Types Packs/Day Years Used Date Smoking Tobacco: Never Assessed Sex and Gender Information Value Date Recorded Sex Assigned at Not on file Legal Sex Male 3:37 AM CAMP PROGRAM DIRECTOR Gender Identity Not on file Sexual Orientation Not on file documented as of this encounter Plan of Treatment Not on file documented as of this encounter Visit Diagnoses Diagnosis Cervicalgia- Primary Cervical spondylosis Cervical spondylosis without myelopathy Backache, unspecified 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
--- OUTSIDE RECORDS SUMMARY | 2025-03-19 14:51 | XMS_ITS | Encounter Summary ---
Author Organization [facility] Address [address] [place] [address] Care Team Providers Care Business Law Teacher Name Role Phone Kalani Guillaume MD Primary Care Provider [phone] Encounter Details Date Type Department Care Team (Latest Contact Info) Description 09/20/2003 Outpatient Historical [facility] Orthopedics- 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
--- OUTSIDE RECORDS SUMMARY | 2025-03-19 14:51 | XMS_ITS | Encounter Summary ---
Author Organization [facility] Address [address] [place] [address] Care Team Providers Care Commercial Estimator Name Role Phone Kalani Guillaume MD Primary Care Provider Encounter Details Date Type Department Care Team (Latest Contact Info) Description 05/31/2003 Outpatient Historical [facility] Orthopedics- 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
--- OUTSIDE RECORDS SUMMARY | 2025-03-19 14:51 | XMS_ITS | Encounter Summary ---
Author Organization [facility] Address [address] [place] [address] Care Team Providers Care Budget Coordinator Name Role Phone Kalani Guillaume MD Primary Care Provider + [phone] Encounter Details Date Type Department Care Team ([facility] Contact Info) Description 03/15/2025 Orders Only [facility] [address] [place] [address] Provider, Abstract NO ADDRESS ON [...] on file Legal Sex Male 5:18 PM DEPUTY FELONY CLERK Gender Identity Not on file Sexual Orientation Not on file documented as of this encounter Plan of Treatment Upcoming Encounters Date Type Department Care Team (Late Contact Info) Description 04/02/2025 11:00 AM CDT Appointment [facility] [address] [place] [phone] Roger Gimenez MD [address] [place] [address] 04/11/2025 9:30 AM CDT Office Visit [facility] [address] [place] [address] Madhav Fuchs NP [address] [place] [address] 05/31/2025 8:00 AM DEPUTY FELONY CLERK Procedure visit [facility] [address] [place] [address] 09/04/2025 2:40 PM CDT Office Visit [facility] [address] [place] [address] Johan Nicholas FNP [address], [address] [place] [address] 11/15/2025 2:20 PM CDT Office Visit [facility] [address] [place] [address] Emiliana Ocampo MD [address] [place] [address] aPttie Brunson NP [address], [address] [place] [address] documented as of this encounter Procedures Procedure Name Priority Date/Time Associated Diagnosis Comments COMPREHENSIVE METABOLIC PANEL Routine 03/10/2025 11:32 AM CDT documented in this encounter Results * COMPREHENSIVE METABOLIC PANEL (03/10/2025 11:32 AM CDT) Blood us Abstract Provider CHEMISTRY ORDERABLES Final Res ult documented in this encounter Visit Diagnoses Not on filedocumented in this encounter Care Teams Budget Coordinator Relationship Specialty Start Date End Date Kalani Guillaume MD [address] [place] [address] PCP - General Family Practice 12/31/16 documented as of this encounter
--- OUTSIDE RECORDS SUMMARY | 2025-03-19 14:51 | XMS_ITS | Encounter Summary ---
Author Organization [facility] Address [address] [place] [address] Care Team Providers Care Paperhanger Supervisor Name Role Phone Kalani Guillaume MD Primary Care Provider Encounter Details Date Type Department Care Team (Late st Contact Info) Description 03/06/2004 Outpatient [facility] [address] [place] [address] [facility] [address] [place] [address] Tg Darby MD [address] [facility] [address] [place] [address] Social History Tobacco Use Types Packs/Day Years Used Date Smoking Tobacco: Never Assessed Sex and Gender Information Value Date Recorded Sex Assigned at Not on file Legal Sex Male 3:37 AM ELECTROLYSIS ENGINEER Gender Identity Not on file Sexual Orientation Not on file documented as of this encounter Plan of Treatment Not on file documented as of this encounter Visit Diagnoses Not on filedocumented in this encounter Care Teams Paperhanger Supervisor Relationship Specialty Start Date End Date Kalani Guillaume MD [address] [place] [address] PCP - General Family Practice 12/31/16 documented as of this encounter
--- OUTSIDE RECORDS SUMMARY | 2025-03-19 14:51 | XMS_ITS | Encounter Summary ---
Author Organization [facility] Address [address] [place] [address] Care Team Providers Care Oil Scout Name Role Phone Kalani Guillaume MD Primary Care Provider [phone] Encounter Details Date Type Department Care Team (Late st Contact Info) Description 03/08/2008 Outpatient Historical [facility] IN [facility], Physician NO ADDRESS ON FILE Sonido Galvan MD NO ADDRESS ON FILE Roger Gimenez MD [address] [facility] [address] [place] [address] Social History Tobacco Use Types Packs/Day Years Used Date Smoking Tobacco: Never Assessed Sex and Gender Information Value Date Recorded Sex Assigned at Not on file Legal Sex Male 3:37 AM CHILD ADVOCATE Gender Identity Not on file Sexual Orientation [...] CDT) PTT 93.2(H) 22.5 - 36.5 Secs [facility] Comment: Therapeutic Range: Hi-level PE/DVT [...] esult INTERFACE SYSTEM Refer to clinic/hospital department [facility] CLIA# [id number] [address] [place] [address] * (ABNORMAL) CBC WITH DIFFERENTIAL (03/09/2008 4:30 AM CDT) EOSINOPHIL ABSOLUTE 0.1 0.0 - 0.7 K/ul [facility] EOSINOPHILS 3.0 0.0 - 7.0 % [facility] RBC 4.17(L) 4.60 - 6.20 Mil/ul [facility] MCHC 33.3 30.0 - 35.0 g/dL [facility] LYMPHOCYTE ABSOLUTE 1.2 1.2 - 4.0 K/ul [facility] LYMPHOCYTES 24.4 24.0 - 44.0 % [facility] MCV 99.3 84.0 - 103.0 Fl [facility] BASOPHILS 0.4 0.0 - 1.0 % [facility] MPV 10.0 8.9 - 12.8 Fl [facility] BASOPHILS ABSOLUTE 0.0 0.0 - 0.2 K/ul [facility] HEMOGLOBIN 13.8(L) 14.0 - 18.0 g/dL [facility] MONOCYTES 7.2 2.0 - 10.0 % [facility] RDW 13.0 11.0 - 14.5 % [facility] MONOCYTE ABSOLUTE 0.3 0.1 - 0.6 K/ul [facility] WBC 4.7(L) 4.8 - 10.8 K/ul [facility] NEUTROPHILS 65.0 42.2 - 75.2 % [facility] MCH 33.1 27.0 - 34.0 pg [facility] NEUTROPHIL ABSOLUTE 3.1 2.0 - 8.0 K/ul [facility] HEMATOCRIT 41.4 41.0 - 53.0 % [facility] PLATELETS 146 140 - 440 K/ul [facility] Blood specimen (specimen) 03/09/2008 4:30 AM CDT 03/09/2008 4:48 AM CDT Roger Gimenez MD HEMATOLOGY ORDERABLES Final R esult INTERFACE SYSTEM Refer to clinic/hospital department [facility] CLIA# [id number] [address] [place] [address] * (ABNORMAL) PTT (03/09/2008 12:01 AM CDT) PTT 90.9(H) 22.5 - 36.5 Secs [facility] Comment: Therapeutic Range: Hi-level PE/DVT [...] ORDERABLES Final R esult Performing Organization Address [facility] de Phone Number INTERFACE SYSTEM Refer to clinic/hospital department [facility] CLIA# [id number] [address] [place] [address] * CARDIAC ENZYMES (03/08/2008 8:33 PM CDT) CKMB 0.5 0.0 - 5.0 ng/mL [facility] TROPONIN I <0.1 0.0 - 1.3 ng/mL [facility] Blood specimen (specimen) 03/08/2008 8:33 PM CDT 03/08/2008 8:51 PM CDT Sonido Galvan MD CHEMISTRY ORDERABLES Siobhan l Result Performing Organization Address [facility] de Phone Number INTERFACE SYSTEM Refer to clinic/hospital department [facility] CLIA# [id number] [address] [place] [address] * CARDIAC ENZYMES (03/08/2008 2:20 PM CDT) TROPONIN I <0.1 0.0 - 1.3 ng/mL [facility] CKMB 0.7 0.0 - 5.0 ng/mL [facility] Blood specimen (specimen) 03/08/2008 2:20 PM CDT 03/08/2008 2:45 PM CDT Sonido Galvan MD CHEMISTRY ORDERABLES Siobhan l Result Performing Organization Address [facility] Phone Number INTERFACE SYSTEM Refer to clinic/hospital department [facility] CLIA# [id number] [address] [place] [address] * (ABNORMAL) PTT (03/08/2008 2:20 PM CDT) PTT 128.2(H) 22.5 - 36.5 Secs [facility] Comment: Therapeutic Range: Hi-level PE/DVT [...] ORDERABLES Final R esult Performing Organization Address [facility] Phone Number INTERFACE SYSTEM Refer to clinic/hospital department [facility] CLIA# [id number] [facility] [place] [address] * (ABNORMAL) BASIC METABOLIC PANEL (03/08/2008 8:14 AM CDT) SODIUM 138 136 - 145 mEq/L [facility] CREATININE 1.3 0.7 - 1.5 mg/dL [facility] ANION GAP 14 9 - 20 mEq/L [facility] BUN 20 9 - 20 mg/dL [facility] CO2 25 22 - 32 mmol/l [facility] GLUCOSE 111(H) 70 - 110 mg/dL [facility] CHLORIDE 103 95 - 110 mEq/L [facility] OSMOLALITY, CALCULATED 288 275 - 295 mOsm/Kg [facility] POTASSIUM 4.3 3.5 - 5.0 mEq/L [facility] CALCIUM 9.3 8.4 - 10.5 mg/dL [facility] Blood specimen (specimen) 03/08/2008 8:14 AM CDT 03/08/2008 8:14 AM CDT Sonido Galvan MD CHEMISTRY ORDERABLES Siobhan antunez Result INTERFACE SYSTEM Refer to clinic/hospital department [facility] CLIA# [id number] [address] [place] [address] * (ABNORMAL) CBC WITH DIFFERENTIAL (03/08/2008 8:14 AM CDT) EOSINOPHIL ABSOLUTE 0.1 0.0 - 0.7 K/ul [facility] EOSINOPHILS 2.1 0.0 - 7.0 % [facility] RBC 4.21(L) 4.60 - 6.20 Mil/ul [facility] MCHC 34.5 30.0 - 35.0 g/dL [facility] LYMPHOCYTE ABSOLUTE 0.9(L) 1.2 - 4.0 K/ul [facility] LYMPHOCYTES 18.3(L) 24.0 - 44.0 % [facility] MCV 97.1 84.0 - 103.0 Fl [facility] BASOPHILS 0.4 0.0 - 1.0 % [facility] MPV 9.4 8.9 - 12.8 Fl [facility] BASOPHILS ABSOLUTE 0.0 0.0 - 0.2 K/ul [facility] HEMOGLOBIN 14.1 14.0 - 18.0 g/dL [facility] MONOCYTES 4.4 2.0 - 10.0 % [facility] RDW 13.0 11.0 - 14.5 % [facility] MONOCYTE ABSOLUTE 0.2 0.1 - 0.6 K/ul [facility] WBC 4.8 4.8 - 10.8 K/ul [facility] NEUTROPHILS 74.8 42.2 - 75.2 % [facility] MCH 33.5 27.0 - 34.0 pg [facility] NEUTROPHIL ABSOLUTE 3.6 2.0 - 8.0 K/ul [facility] HEMATOCRIT 40.9(L) 41.0 - 53.0 % [facility] PLATELETS 153 140 - 440 K/ul [facility] Blood specimen (specimen) 03/08/2008 8:14 AM CDT 03/08/2008 8:14 AM CDT Sonido Galvan MD HEMATOLOGY ORDERABLES Fin al Result Performing Organization Address [facility] Phone Number INTERFACE SYSTEM Refer to clinic/hospital department [facility] CLIA# [id number] [address] [place] [address] * (ABNORMAL) PTT (03/08/2008 8:14 AM CDT) PTT 123.5(H) 22.5 - 36.5 Secs [facility] Comment: Therapeutic Range: Hi-level PE/DVT [...] ORDERABLES Fin al Result Performing Organization Address [facility] Phone Number INTERFACE SYSTEM Refer to clinic/hospital [facility] CLIA# [id number] [address] [place] [address] * PROTIME-INR (03/08/2008 8:14 AM CDT) PROTIME 14.3 12.8 - 15.8 Secs [facility] Comment:As of 2007 not e change in normal range. INR 1.0 [facility] Comment: Expected Values for INR: DVT/PE Goal INR 2.5; range 2.0 - 3.0 Valve Replacement Tissue Goal INR 2.5; range 2.0 - 3.0 Mechanical Goal INR 3.0; range 2.5 - 3.5 POST-CO Goal INR 2.5; range 2.0 - 3.0 or Goal 3.0; range 2.5 - 3.5 Atrial Fibrillation Goal INR 2.5; range 2.0 - 3.0 Ischemic Stroke Goal INR 2.5; range 2.0 - 3.0 For additional information see Guidelines for Anticoagulation available from the pharmacy [facility], Pharm D. [phone] Blood specimen (specimen) 03/08/2008 8:14 AM CDT 03/08/2008 8:14 AM CDT Sonido Galvan MD HEMATOLOGY ORDERABLES Fin al Result Performing Organization Address [facility] Phone Number INTERFACE SYSTEM Refer to clinic/hospital department [facility] CLIA# [id number] [address] [place] [address] * CARDIAC ENZYMES (03/08/2008 8:14 AM CDT) CKMB 0.8 0.0 - 5.0 ng/mL [facility] TROPONIN I <0.1 0.0 - 1.3 ng/mL [facility] Blood specimen (specimen) 03/08/2008 8:14 AM CDT 03/08/2008 8:14 AM CDT Sonido Galvan MD CHEMISTRY ORDERABLES Siobhan l Result Performing Organization Address [facility] de Phone Number INTERFACE SYSTEM Refer to clinic/hospital department [facility] CLIA# [id number] [address] [place] [address] * XR CHEST PA OR AP (03/08/2008 [...] By: Elma Mansfield M.D. Date Signed: 03/10/08 [facility] Procedure Note Elma Mansfield MD - [...] By: Elma Mansfield M.D. Date Signed: 03/10/08 [facility] Sonido Galvan MD DIAGNOSTIC IMAGING ORDERA BLES Final Result documented in this encounter Visit Diagnoses Not on filedocumented in this encounter Care Teams Oil Scout Relationship Specialty Start Date End Date Kalani Guillaume MD [address] [place] [address] PCP - General Family Practice 12/31/16 documented as of this encounter
--- OUTSIDE RECORDS SUMMARY | 2025-03-19 14:51 | XMS_ITS | Encounter Summary ---
Author Organization [facility] Address [address] [place] [address] Care Team Providers Care Blindstitch Lapel Padder Name Role Phone Kalani Guillaume MD Primary Care Provider Encounter Details Date Type Department Care Team (Latest Contact Info) Description 11/28/2003 Outpatient Historical [facility] Jace Lilly MD [address] [place] [phone] DERANG POST MED MENISCUS (Primary Dx) Social History Tobacco Use Types Packs/Day Years Used Date Smoking Tobacco: Never Assessed Sex and Gender Information Value Date Recorded Sex Assigned at Not on file Legal Sex Male 3:37 AM [place] AUDITOR Gender Identity Not on file Sexual Orientation Not on file documented as of this encounter Plan of Treatment Not on file documented as of this encounter Visit Diagnoses Diagnosis 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
--- OUTSIDE RECORDS SUMMARY | 2025-03-19 14:51 | XMS_ITS | Encounter Summary ---
Author Organization [facility] Address [address] [place] [address] Care Team Providers Care Erp Programmer Name Role Phone Kalani Guillaume MD Primary Care Provider [phone] Encounter Details Date Type Department Care Team (Latest Contact Info) Description 07/09/2005 Outpatient Historical [facility] Cardiology- [place] [address] [place] [address] Rain Murillo, CAMP COOK [address] [place] [address] CORON ATHEROSCL [place] CORON VESSEL (Primary Dx); HYPERTENSION NOS; MIXED HYPERLIPIDEMIA Social History Tobacco Use Types Packs/Day Years Used Date Smoking Tobacco: Never Assessed Sex and Gender Information Value Date Recorded Sex Assigned at Not on file Legal Sex Male 3:37 AM BROKER Gender Identity Not on file Sexual Orientation Not on file documented as of this encounter Plan of Treatment Not on file documented as of this encounter Visit Diagnoses Diagnosis Coronary atherosclerosis of [place] coronary artery- Primary Unspecified essential hypertension Mixed hyperlipidemia documented in this encounter Care Teams Erp Programmer Relationship Specialty Start Date End Date Kalani Guillaume MD [address] [place] [address] PCP - General Family Practice 12/31/16 documented as of this encounter
--- OUTSIDE RECORDS SUMMARY | 2025-03-19 14:51 | XMS_ITS | Encounter Summary ---
Author Organization [facility] Address [address] [place] [address] Care Team Providers Care Cut Order Hand Name Role Phone Kalani Guillaume MD Primary Care Provider Encounter Details Date Type Department Care Team (Latest Contact Info) Description 02/19/2004 Outpatient [facility] [address] [phone] Bob Noel MD [address] [place] [address] LUMBOSACRAL SPONDYLOSIS (Primary Dx) Social History Tobacco Use Types Packs/Day Years Used Date Smoking Tobacco: Never Assessed Sex and Gender Information Value Date Recorded Sex Assigned at Not on file Legal 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
--- OUTSIDE RECORDS SUMMARY | 2025-03-19 14:51 | XMS_ITS | Encounter Summary ---
Author Organization [facility] Address [address] [place] [address] Care Team Providers Care Insurance Account Manager Name Role Phone Kalani Guillaume MD Primary Care Provider [phone] Encounter Details Date Type Department Care Team (Latest Contact Info) Description 04/01/2004 Outpatient [facility] [address] [phone] Bob Noel MD [address] [place] [address] CERVICAL SPONDYLOSIS (Primary Dx) Social History Tobacco Use Types Packs/Day Years Used Date Smoking Tobacco: Never Assessed Sex and Gender Information Value Date Recorded Sex Assigned at Not on file 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
--- OUTSIDE RECORDS SUMMARY | 2025-03-19 14:51 | XMS_ITS | Encounter Summary ---
Author Organization [facility] Address [address] [place] [address] Care Team Providers Care Drug And Alcohol Counselor Name Role Phone Kalani Guillaume MD Primary Care Provider Encounter Details Date Type Department Care Team (Latest Contact Info) Description 04/17/2008 Outpatient Historical [facility] Operating Room [address] [place] [phone] Raymond Matias MD NO ADDRESS ON FILE Unspecified Essential Hypertension; Coronary Atherosclerosis of [place] Coronary Artery; Esophageal Reflux; Hip Joint Replacement by Other Means; Postsurgical Percutaneous Transluminal Coronary Angioplasty Status; Personal History of Allergy to Analgesic Agent; Personal History of Allergy to Other Anti-Infective Agent Social History Tobacco Use Types Packs/Day Years Used Date Smoking Tobacco: Never Assessed Sex and Gender Information Value Date Recorded Sex Assigned at Not on file 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 Gender Identity Not on file Sexual Orientation Not on file documented as of this encounter Plan of Treatment Not on file documented as of this encounter Visit Diagnoses Diagnosis Unspecified essential hypertension Coronary atherosclerosis of [place] coronary artery Esophageal reflux Hip joint replacement by other means Postsurgical percutaneous transluminal coronary angioplasty status Personal history of allergy to analgesic agent Personal history of allergy to other anti-infective agent documented in this encounter Care Teams Drug And Alcohol Counselor Relationship Specialty Start Date End Date Kalani Guillaume MD [address] [place] [address] PCP - General Family Practice 12/31/16 documented as of this encounter
--- OUTSIDE RECORDS SUMMARY | 2025-03-19 14:51 | XMS_ITS | Encounter Summary ---
Author Organization [facility] Address [address] [place] [address] Care Team Providers Care Stable Manager Name Role Phone Kalani Guillaume MD Primary Care Provider [phone] Encounter Details Date Type Department Care Team (Latest Contact Info) Description 07/02/2006 Outpatient Historical [facility] Cardiac Medical Transcriptionist [address] [place] [address] Roger Gimenez MD [address] [facility] [address] [place] [address] Coronary Atherosclerosis of [place] Coronary Artery (Primary Dx) Social History Tobacco Use Types Packs/Day Years Used Date Smoking Tobacco: Never Assessed Sex and Gender Information Value Date Recorded Sex Assigned at Not on file Legal Sex Male 3:37 AM STUDENT COUNSELOR Gender Identity Not on file Sexual Orientation Not on file documented as of this encounter Plan of Treatment Not on file documented as of this encounter Procedures Procedure Name Priority Date/Time Associated Diagnosis Comments PT AND APTT Routine 07/02/2006 8:14 AM STUDENT COUNSELOR CBC WITHOUT DIFFERENTIAL Routine 07/02/2006 8:14 AM STUDENT COUNSELOR BASIC METABOLIC PANEL Routine 07/02/2006 8:14 AM STUDENT COUNSELOR documented in this encounter Results * PT AND APTT (07/02/2006 8:14 AM STUDENT COUNSELOR) PROTIME 13.6 13.0 - 15.7 Secs INTERFACE SYSTEM Comment: As of 06 note change in normal range. INR 0.9 INTERFACE SYSTEM Comment: Expected Values for INR: DVT/PE Goal INR 2.5; range 2.0 - 3.0 Valve Replacement Tissue Goal INR 2.5; range 2.0 - 3.0 Mechanical Goal INR 3.0; range 2.5 - 3.5 POST-MS Goal INR 2.5; range 2.0 - 3.0 [...] in APTT Normal Range. 07/02/2006 8:14 AM STUDENT COUNSELOR Roger Gimenez MD HEMATOLOGY ORDERABLES Edited INTERFACE SYSTEM Refer to clinic/hospital department * (ABNORMAL) CBC WITHOUT DIFFERENTIAL (07/02/2006 8:14 AM STUDENT COUNSELOR) WBC 3.9(L) 4.8 - 10.8 K/ul INTERFACE [...] 0.2 K/ul INTERFACE SYSTEM 07/02/2006 8:14 AM STUDENT COUNSELOR Roger Gimenez MD HEMATOLOGY ORDERABLES Edited Performing Organization Address [facility] de Phone Number INTERFACE SYSTEM Refer to clinic/hospital department * (ABNORMAL) BASIC METABOLIC PANEL (07/02/2006 8:14 AM STUDENT COUNSELOR) GLUCOSE 112(H) 70 - 110 mg/dL INTERFACE [...] 10.5 mg/dL INTERFACE SYSTEM 07/02/2006 8:14 AM STUDENT COUNSELOR Roger Gimenez MD CHEMISTRY ORDERABLES Edited Performing Organization Address [facility] de Phone Number INTERFACE SYSTEM Refer to clinic/hospital department documented in this encounter Visit Diagnoses Diagnosis Coronary atherosclerosis of [place] coronary artery- Primary documented in this encounter Care Teams Stable Manager Relationship Specialty Start Date End Date Kalani Guillaume MD [address] [place] [address] PCP - General Family Practice 12/31/16 documented as of this encounter
--- OUTSIDE RECORDS SUMMARY | 2025-03-19 14:51 | XMS_ITS | Encounter Summary ---
Author Organization [facility] Address 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 Gimenez on 03/01/25. Wt Readings from Last 3 Encounters: 03/11/25 75 kg (165 lb 5.5 oz) 03/01/25 74.8 kg (165 lb) 11/21/24 72.1 kg (159 lb) Temp Readings from Last 3 Encounters: 03/13/25 97.6 ??F (36.4 ??C) (Temporal) 07/06/23 97.7 ??F (36.5 ??C) 02/04/23 97.9 ??F (36.6 ??C) (Oral) BP Readings from Last 3 Encounters: 03/13/25 125/65 03/01/25 120/60 11/21/24 132/78 Pulse Readings from Last 3 Encounters: 03/13/25 69 03/01/25 62 11/21/24 62 Resp Readings from Last 3 Encounters: 03/13/25 18 11/17/23 16 07/06/23 16 PF Readings from Last 3 Encounters: No data found for PF SpO2 Readings from Last 3 Encounters: 03/13/25 95% 03/01/25 94% 11/21/24 96% Refilled Apresoline documented in this encounter Plan of Treatment Upcoming Encounters Date Type Department Care Team (Late st Contact Info) Description 04/02/2025 11:00 AM CDT Appointment [facility] [address] [place] [address] Roger Gimenez MD [address] [place] [address] 04/11/2025 9:30 AM CDT Office Visit [facility] [address] [place] [address] [place] [address] Madhav Fuchs NP [address] [place] [address] 05/31/2025 8:00 AM TELECOMMUNICATIONS FIELD ENGINEER Procedure visit [facility] [address] [place] [phone] 09/04/2025 2:40 PM CDT Office Visit [facility] [address] [place] [address] Johan Nicholas, [facility] [address], [address] [place] [address] 11/15/2025 2:20 PM CDT Office Visit [facility] [address] [place] [address] Emiliana Ocampo MD [address] [place] [address] Pattie Brunson NP [address], [address] [place] [phone] documented as of this encounter Visit Diagnoses Not on filedocumented in this encounter Care Teams Switchboard Mechanic Relationship Specialty Start Date End Date Kalani Guillaume MD [address] [place] [address] PCP - General Family Practice 12/31/16 documented as of this encounter
--- OUTSIDE RECORDS SUMMARY | 2025-03-19 14:51 | XMS_ITS | Encounter Summary ---
Author Organization [facility] Address [address] [place] [address] Care Team Providers Care Security Assurance Analyst Name Role Phone Kalani Guillaume MD Primary Care Provider Encounter Details Date Type Department Care Team (Latest Contact Info) Description 03/06/2004 Outpatient Historical [facility] [address] 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
--- OUTSIDE RECORDS SUMMARY | 2025-03-19 14:51 | XMS_ITS | Encounter Summary ---
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 [address] [place] [address] Roger Gimenez MD [address] [facility] [address] [place] [address] CORON ATHEROSCL [place] CORON VESSEL (Primary Dx) Social History Tobacco Use Types Packs/Day Years Used Date Smoking Tobacco: Never Assessed Sex and Gender Information Value Date Recorded Sex Assigned at Not on file Legal 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 Gender Identity Not on file Sexual Orientation Not on file documented as of this encounter Plan of Treatment Not on file documented as of this encounter Procedures Procedure Name Priority Date/Time Associated Diagnosis Comments POC ACTIVATED CLOTTING TIME Routine 05/27/2005 2:36 PM ASTRONOMY TEACHER POC ACTIVATED CLOTTING TIME Routine 05/27/2005 1:39 PM ASTRONOMY TEACHER BASIC METABOLIC PANEL Routine 05/27/2005 6:14 AM ASTRONOMY TEACHER PT AND APTT Routine 05/26/2005 8:49 AM ASTRONOMY TEACHER CBC WITHOUT DIFFERENTIAL Routine 05/26/2005 8:49 AM ASTRONOMY TEACHER BASIC METABOLIC PANEL Routine 05/26/2005 8:49 AM ASTRONOMY TEACHER documented in this encounter Results * (ABNORMAL) POC ACTIVATED CLOTTING TIME (05/27/2005 2:36 PM ASTRONOMY TEACHER) [facility] ACT POC 165(H) 79 - 149 sec INTERFACE SYSTEM 05/27/2005 2:36 PM ASTRONOMY TEACHER Roger Gimenez MD POINT OF CARE TESTING Final R esult Performing Organization Address [facility] Phone Number INTERFACE SYSTEM Refer to clinic/hospital department * (ABNORMAL) POC ACTIVATED CLOTTING TIME (05/27/2005 1:39 PM ASTRONOMY TEACHER) [facility] ACT POC 178(H) 79 - 149 sec INTERFACE SYSTEM 05/27/2005 1:39 PM ASTRONOMY TEACHER us Roger Gimenez MD POINT OF CARE TESTING Final R esult Performing Organization Address [facility] Phone Number INTERFACE SYSTEM Refer to clinic/hospital department * (ABNORMAL) BASIC METABOLIC PANEL (05/27/2005 6:14 AM ASTRONOMY TEACHER) Pathologist [facility] GLUCOSE 124(H) 70 - 110 mg/dL INTERFACE [...] 10.5 mg/dL INTERFACE SYSTEM 05/27/2005 6:14 AM ASTRONOMY TEACHER us Roger Gimenez MD CHEMISTRY ORDERABLES Final Re sult Performing Organization Address [facility] Phone Number INTERFACE SYSTEM Refer to clinic/hospital department * PT AND APTT (05/26/2005 8:49 AM ASTRONOMY TEACHER) Pathologist [facility] PROTIME 13.0 12.6 - 14.9 Secs INTERFACE [...] INTERFACE SYSTEM Comment:Therapeutic Range: 05/26/2005 8:49 AM ASTRONOMY TEACHER Roger Gimenez MD HEMATOLOGY ORDERABLES Final R esult INTERFACE SYSTEM Refer to clinic/hospital department * (ABNORMAL) CBC WITHOUT DIFFERENTIAL (05/26/2005 8:49 AM ASTRONOMY TEACHER) Pathologist [facility] WBC 3.3(L) 4.8 - 10.8 K/ul INTERFACE [...] 0.2 K/ul INTERFACE SYSTEM 05/26/2005 8:49 AM ASTRONOMY TEACHER Roger Gimenez MD HEMATOLOGY ORDERABLES Final R esult Performing Organization Address [facility] Phone Number INTERFACE SYSTEM Refer to clinic/hospital department * (ABNORMAL) BASIC METABOLIC PANEL (05/26/2005 8:49 AM ASTRONOMY TEACHER) GLUCOSE 133(H) 70 - 110 mg/dL INTERFACE [...] 10.5 mg/dL INTERFACE SYSTEM 05/26/2005 8:49 AM ASTRONOMY TEACHER Roger Gimenez MD CHEMISTRY ORDERABLES Final Re sult Performing Organization Address [facility] Phone Number INTERFACE SYSTEM Refer to clinic/hospital department documented in this encounter Visit Diagnoses Diagnosis Coronary atherosclerosis of [place] coronary artery- Primary documented in this encounter Care Teams Conservation Of Resources Commissioner Relationship Specialty Start Date End Date Kalani Guillaume MD [address] [place] [phone] PCP - General Family Practice 12/31/16 documented as of this encounter
--- OUTSIDE RECORDS SUMMARY | 2025-03-19 14:52 | XMS_ITS | Patient Health Record ---
Author Organization [facility] Address [address] [place] [address] Care Team Providers Care Fur Dry Cleaner Hand Name Role Phone Kalani Guillaume Primary Care Provider UnavailNUZHAT Padilla Unavailable [phone] TONIETERI FINCH Unavailable [phone] Chiki Bennett Unavailable [phone] Allergies Allergen (clinical drug ingredient) Drug/Non Drug [...] Glucose - Bilirubin - Ketones - Specific Guin 1.015 Occult Blood - pH 6.0 Urine [...] Status Risk Notes Problem Benign prostatic hyperplasia (013824769) BPH (benign prostatic hyperplasia) (N40.0) Active confirmed Problem 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 Problem Benign prostatic hypertrophy with outflow obstruction (220560889) BPH loc w urin obs/LUTS (N40.1) Active [...] N/A Encounters Encounter Location Date Provider Diagnosis [facility], [facility] [address] [place] [address] 03/21/2024 TERI SCHILLING BPH loc w urin obs/LUTS N40.1 ; Weak urine stream R39.12 ; Urinary frequency R35.0 ; Urinary urgency R39.15 and Nocturia R35.1 [facility], [facility] [address] [place] [address] 09/20/2024 Chiki Bennett Weak urine stream R39.12 ; BPH loc w urin obs/LUTS N40.1 ; Urinary frequency R35.0 ; Urinary urgency R39.15 and Nocturia R35.1 Assessments Encounter Date Diagnosis (ICD Code) Assessment [...] UroFlow 09/20/2024 Next Appt Details Provider Name:Chiki Sabrina, 03/27/2025 02:00:00 PM, [address] [place], [address], Insurance Providers Payer Name Payer Address Payer Phone Subscriber Number Group Number Insured Name Patient Relationship to Insured Coverage Start Date Coverage End Date [employer] Medicare Replacement [address] [address] [place], [place] [id number] Juan M Mabry Self - patient is the insured Medical (General) History Medical History History ICD Code Osteoarthritis Rheumatoid arthritis Coronary artery disease Degenerative disc disease Heart disease Hyperlipidemia Hypertension COPD Back pain Dysuria Kidney disease BPH Surgical History Surgery Date(Month/Year) Cardiac stents 2004 Hip surgery 2004 Bilateral shoulder replacement 2016
[2025-03-19 14:58] VITALS: BP 160/68; PULSE 66; RESP 18; O2SAT 96
--- NOTE | 2025-03-19 15:07 | CTR_ITS ---
PROCEDURE INFORMATION: Exam: CT Head Without Contrast Exam date and time: 03/19/2025 3:06 PM Age: 84 years old Clinical indication: Stroke-like symptoms; Headache and visual disturbance; Additional info: AMS. Patient reports he fell 2 weeks ago and had a diagnosed head bleed. Was instructed to return to ED if he had a headache. Patient reports approx 1 hour ago headache started and vision changed. Lnw 1330. TECHNIQUE: Imaging protocol: Computed tomography of the head without contrast. Radiation optimization: All CT scans at this facility use at least one of these dose optimization techniques: automated exposure control; mA and/or kV adjustment per patient size (includes targeted exams where dose is matched to clinical indication); or iterative reconstruction. Other technique: STROKE PROTOCOL was implemented. COMPARISON: CT head wo con* [id number] 03/10/2025 5:16 PM RADIATION DOSE METRICS: Total DLP (mGy-cm): 1140.6 FINDINGS: Brain: No acute confluent lobar ischemic infarct. Redemonstration of a left-sided subdural hematoma overlying the left cerebral hemisphere which overall does not appear significantly changed in size. There is overall decreased density of the subdural collection compatible with evolution of blood products. There are a few persistent areas of high density within the collection, and areas of acute hemorrhage cannot be entirely excluded. Recommend clinical correlation and follow-up imaging as clinically warranted. Cerebral ventricles: The ventricles and sulci are prominent in size compatible with mild atrophy. Paranasal sinuses: Fluid level in the right sphenoid sinus. Mastoid air cells: Visualized mastoid air cells are well aerated. Bones: No acute calvarial fracture. Soft tissues: Visualized soft tissues are unremarkable. CT/CT head thrombolytic [id number] IMPRESSION: 1. No acute confluent lobar ischemic infarct. If symptoms persist, consider further evaluation with MRI, if there are no contraindications to obtaining a MRI scan. 2. Redemonstration of a left-sided subdural hematoma overlying the left cerebral hemisphere which overall does not appear significantly changed in size. There is overall decreased density of the subdural collection compatible with evolution of blood products. There are a few persistent areas of high density within the collection, and areas of acute hemorrhage cannot be entirely excluded. Recommend clinical correlation and follow-up imaging as clinically warranted. ASSESSMENT: ASPECTS ([place] Stroke Program Early CT Score) is 10.
--- NOTE | 2025-03-19 15:08 | W.ED.NEUROSD ---
HPI - Neuro Symptoms/Deficit General: Chief Complaint: Neuro Symptoms/Deficit Stated Complaint: bilat eye pain, LU Time Seen by Provider: 03/19/25 15:08 History of Present Illness: 84-year-old man with a history of congestive heart failure, peripheral vascular disease, chronic kidney disease, COPD, anemia, who presents emergency room with neurologic symptoms. Says he is having pain behind his eyes. He was seen here recently and sent to [facility] in [place] from the emergency room after he had a fall and a subdural hematoma. He been doing somewhat better and came home but started having some headache symptoms today and they became very concerned that this might be recurring so brought him here. He currently is alert and oriented. No focal motor deficits. He complains of a mild headache. He is had no new injuries. He is not on his blood thinners currently. Related Data Home Medications ?Medication ?Instructions ?Recorded ?Confirmed aspirin 81 mg tablet,delayed 81 mg PO DAILY 04/23/20 02/07/25 release nitroglycerin 0.4 mg sublingual 0.4 mg sublingual Q5M PRN Chest 04/23/20 02/07/25 tablet (Nitrostat) Pain rosuvastatin 20 mg tablet 20 mg PO DAILY 04/23/20 02/07/25 tamsulosin 0.4 mg capsule 0.4 mg PO DAILY 04/23/20 02/07/25 vitamin B complex 1 tab PO BID 04/23/20 02/07/25 calcium 333 mg-vit D3 200 1 tab PO DAILY 05/12/21 02/07/25 unit-magnesium 133 mg-zinc 5 mg tablet ascorbic acid (vitamin C) 500 mg 250 mg PO BID 08/04/21 02/07/25 tablet (Vitamin C) cranberry fruit 400 mg capsule 400 mg PO DAILY 08/04/21 02/07/25 elderberry fruit 460 mg-elderberry 1 cap PO BID 08/04/21 02/07/25 flower 115 mg capsule fexofenadine 60 mg tablet 60 mg PO BID 08/04/21 02/07/25 lansoprazole 15 mg capsule,delayed 15 mg PO DAILY 08/04/21 02/07/25 release (Prevacid 24Hr) acetaminophen 500 mg tablet 1,000 mg PO Q6H PRN Pain, Moderate 01/02/22 02/07/25 nifedipine 30 mg tablet,extended 30 mg PO DAILY 01/02/22 02/07/25 release 24 hr cholecalciferol (vitamin D3) 25 50 mcg PO BID 05/13/23 02/07/25 mcg (1,000 unit) chewable tablet (Vitamin D3) coenzyme Q10 10 mg capsule (Co 10 mg PO DAILY 05/13/23 02/07/25 Q-10) garlic 100 mg tablet 200 mg PO BID 05/13/23 02/07/25 indomethacin 25 mg capsule 25 mg PO TID PRN GOUT 05/13/23 02/07/25 metoprolol succinate 25 mg 25 mg PO DAILY 05/13/23 02/07/25 tablet,extended release 24 hr rivaroxaban 15 mg tablet (Xarelto) 15 mg PO DAILY 05/13/23 02/07/25 furosemide 40 mg tablet 40 mg PO BID 09/08/23 02/07/25 finasteride 5 mg tablet mg PO 02/07/25 02/07/25 hydralazine 25 mg tablet mg PO 02/07/25 02/07/25 isosorbide mononitrate 30 mg mg PO 02/07/25 02/07/25 tablet,extended release 24 hr potassium chloride 20 mEq meq PO 02/07/25 02/07/25 tablet,extended release(part/cryst) (Dontrell-Martin Kaye) Previous Rx's ?Medication ?Instructions ?Recorded Symbicort 160 mcg-4.5 See Rx Instructions .Route 10/01/22 mcg/actuation HFA aerosol inhaler .COMPLEX #11 grams (budesonide-formoterol) fluticasone propionate 50 1 spray intranasal BID PRN allergy 08/04/23 mcg/actuation nasal symptoms #16 grams spray,suspension (Flonase Allergy Relief) ferrous sulfate 324 mg (65 mg 324 mg PO DAILY #30 tabs 08/18/23 iron) tablet,delayed release cyanocobalamin (vitamin B-12) 1,000 mcg sublingual DAILY #30 tabs 09/06/23 1,000 mcg sublingual tablet tiotropium bromide 1.25 2 puff inhalation DAILY #4 grams 09/08/23 mcg/actuation mist for inhalation (Spiriva Respimat) mecobalamin (vitamin B12) 1,000 1,000 mcg sublingual DAILY #30 tabs 11/18/23 mcg disintegrating tablet,sublingual hydrocodone 5 mg-acetaminophen 325 1 tab PO QID PRN pain 30 days #120 11/24/23 mg tablet tabs albuterol sulfate 90 mcg/actuation 2 puff inhalation QID PRN 12/31/23 aerosol inhaler shortness of breath or wheezing 30 days #18 grams gabapentin 300 mg capsule 300 mg PO DAILY #90 caps 11/14/24 prednisone 5 mg tablet 5 mg PO DAILY #90 tabs 11/14/24 sulfasalazine 500 mg tablet 0.5 g PO BID #180 tabs 02/08/25 (Azulfidine) Allergies Allergy/AdvReac Type Severity Reaction Status Date / Time 2-octyl cyanoacrylate Allergy ALGY-Rash Verified 02/07/25 12:57 iodine Allergy ALGY-Bliste Verified 02/07/25 12:57 r meperidine Allergy ALGY-Hives Verified 02/07/25 12:57 morphine Allergy ALGY-Rash Verified 02/07/25 12:57 povidone-iodine (From Allergy Unknown Verified 02/07/25 12:57 Betadine) soap (From Betadine) Allergy Unknown Verified 02/07/25 12:57 dermabond AdvReac Intermediate adr-blister Uncoded 02/07/25 12:57 s Review of Systems Narrative: Constitutional symptoms: Negative except as documented in HPI. Skin symptoms: Negative except as documented in HPI. Eye symptoms: Negative except as documented in HPI. ENMT symptoms: Negative except as documented in HPI. Respiratory symptoms: Negative except as documented in HPI. Cardiovascular symptoms: Negative except as documented in HPI. Gastrointestinal symptoms: Negative except as documented in HPI. Genitourinary symptoms: Negative except as documented in HPI. Musculoskeletal symptoms: Negative except as documented in HPI. Neurologic symptoms: Negative except as documented in HPI. Psychiatric symptoms: Negative except as documented in HPI. Endocrine symptoms: Negative except as documented in HPI. 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 CHF (congestive heart failure) Peripheral vascular disease CKD (chronic kidney disease) Pneumonia due to COVID-19 virus Surgical History S/P peripheral artery angioplasty with stent placement 2015 History of colonoscopy History of coronary angioplasty with insertion of stent 2003 S/P laparoscopic-assisted sigmoidectomy (08/06/21) H/O shoulder replacement History of right hip replacement Family History Sister Cancer Hyperlipidemia Hypertension Rheumatoid arthritis Mother Hyperlipidemia Hypertension Rheumatoid arthritis Father Hyperlipidemia Hypertension Stroke Rheumatoid arthritis Brother Hyperlipidemia Hypertension Heart attack Rheumatoid arthritis Denies family history of Diabetes Lupus Social History Smoking and tobacco/nicotine status: unknown if used tobacco/nicotine Quit status (tobacco/nicotine): has quit using Year quit tobacco: 1987 - 4PPD x 30 Years Second hand smoke exposure: No Alcohol intake: current Alcohol intake frequency: few times a week Alcohol type: wine Substance/Drug Use: never Lives independently: Yes Household members: spouse Marital status: service: Yes Current occupational status: retired Do you think of yourself as: Straight/Heterosexual Current gender identity: Male Physical Exam Narrative: EXAM NARRATIVE: General: Alert, no acute distress. Skin: Warm, dry. Head: Normocephalic, atraumatic. Neck: Supple, trachea midline. Eye: Extraocular movements are intact. Ears, nose, mouth and throat: mucosa moist. Cardiovascular: Regular, Normal peripheral perfusion. Respiratory: Lungs are clear to auscultation, respirations are non-labored, breath sounds are equal, Symmetrical chest wall expansion. Gastrointestinal: Soft, Nontender, Non distended Musculoskeletal: Normal ROM, no deformity. Neurological: Alert and oriented, No focal neurological deficit observed. Psychiatric: Cooperative, appropriate mood & affect. Course Vital Signs: Vital signs: Vital Signs Pulse Rate 61 03/19/25 15:57 Respiratory Rate 16 03/19/25 15:57 Blood Pressure 119/65 03/19/25 15:57 Pulse Oximetry 96 03/19/25 15:57 Oxygen Delivery Me thod Room Air 03/19/25 15:57 MDM - Neuro Symptoms/Deficit Medical Decision Making Medical decision making: Differential diagnosis for patient with focal neurologic deficit(s) includes but not limited to and based on the above HPI, review of systems and physical exam: ischemic stroke, hemorrhagic stroke and embolic stroke secondary to atrial fibrillation), TIA, Mcguire's palsey, metabolic encephalopathy with previous stroke. Orders placed to evaluate differential diagnosis based on the above differential, HPI and physical exam NIH Stroke Scale/Score (NIHSS) from [email or web address] on 03/19/2025 All calculations should be rechecked by clinician prior to use RESULT SUMMARY: 0 points NIH Stroke Scale INPUTS: 1A: Level of consciousness ?> 0 = Alert; keenly responsive 1B: Ask month and age ?> 0 = Both questions right 1C: 'Blink eyes' & 'squeeze hands' ?> 0 = Performs both tasks 2: Horizontal extraocular movements ?> 0 = Normal 3: Visual howard ?> 0 = No visual loss 4: Facial palsy ?> 0 = Normal symmetry 5A: Left arm motor drift ?> 0 = No drift for 10 seconds 5B: Right arm motor drift ?> 0 = No drift for 10 seconds 6A: Left leg motor drift ?> 0 = No drift for 5 seconds 6B: Right leg motor drift ?> 0 = No drift for 5 seconds 7: Limb Ataxia ?> 0 = No ataxia 8: Sensation ?> 0 = Normal; no sensory loss 9: Language/aphasia ?> 0 = Normal; no aphasia 10: Dysarthria ?> 0 = Normal 11: Extinction/inattention ?> 0 = No abnormality CT of the head: No acute ischemia. Left-sided subdural that does not appear worsened. This was reviewed and interpreted by myself the emergency room physician. I also reviewed the radiology report. EKG: Time 1524. Rate 60. Normal sinus rhythm, No ST-T changes, no ectopy, paced rhythm, this was reviewed and interpreted by myself the emergency room physician at 1530 Lab Review: Laboratory results were reviewed and interpreted by myself the emergency room physician. No leukocytosis. No anemia. No new renal failure. Urinalysis is negative for infection. Consultation: I spoke with neurologist on-call at [facility] in [place]. He compared our films to films taken there and says that it seems to be improving with some uptake of the blood. No increased size and no new bleeding. I reviewed the patient's medical record. 84-year-old man with a history of congestive heart failure, peripheral vascular disease, chronic kidney disease, COPD, anemia, who presents emergency room with neurologic symptoms. He was seen here recently and sent to [facility] in [place] from the emergency room after he had a fall and a subdural hematoma. I personally compared imaging to previous. Reviewed charting from his recent emergency room visit. Reexamination: Patient remained stable. No increased work of breathing. No altered mental status. No focal motor deficits. Assessment and plan: Concussion symptoms Subacute subdural hematoma - Discharged home - Discussed plan with patient. Answered any questions. - Evaluation and treatment of this problem were appropriate in the emergency setting. Lab Data 03/19/25 15:37 03/19/25 15:[address] 03/19/25 15:07 IMPRESSION: 1. No acute confluent lobar ischemic infarct. If symptoms persist, consider further evaluation with MRI, if there are no contraindications to obtaining a MRI scan. 2. Redemonstration of a left-sided subdural hematoma overlying the left cerebral hemisphere which overall does not appear significantly changed in size. There is overall decreased density of the subdural collection compatible with evolution of blood products. There are a few persistent areas of high density within the collection, and areas of acute hemorrhage cannot be entirely excluded. Recommend clinical correlation and follow-up imaging as clinically warranted. ASSESSMENT: ASPECTS ([place]uli Stroke Program Early CT Score) is 10. ADDENDUM: 03/19/25 1527 ADDENDUM: THIS REPORT CONTAINS FINDINGS THAT MAY BE CRITICAL TO PATIENT CARE. The findings were verbally communicated via telephone conference with GRISEL FLORES at 3:25 PM CDT on 03/19/2025. The findings were acknowledged and understood. Laboratory Results WBC 6.36 10^3/uL (3.29-11.43) 03/19/25 15:37 RBC 3.48 10^6/uL (3.85-5.65) L 03/19/25 15:37 Hgb 10.00 g/dL (11.27-16.99) L 03/19/25 15:37 Hct 33.7 % (37-53) L 03/19/25 15:37 MCV 96.8 fl (82-101) 03/19/25 15:37 MCH 28.7 pg (27-33) 03/19/25 15:37 MCHC 29.7 g/dL (30-55) L 03/19/25 15:37 RDW 17.5 % (12.1-15.1) H 03/19/25 15:37 Plt Count 181 10^3/cmm (157-399) 03/19/25 15:37 MPV 9.6 fL (7.4-10.4) 03/19/25 15:37 Neut % (Auto) 78.8 % 03/19/25 15:37 Lymph % (Auto) 13.8 % 03/19/25 15:37 [place] % (Auto) 4.6 % 03/19/25 15:37 Eos % (Auto) 0.9 % 03/19/25 15:37 Baso % (Auto) 0.3 % 03/19/25 15:37 Neut # (Auto) 5.01 10^3/uL (1.8-7.7) 03/19/25 15:37 Lymph # (Auto) 0.9 10^3/uL (0.8-4.8) 03/19/25 15:37 [place] # (Auto) 0.3 10^3/uL (0.2-0.9) 03/19/25 15:37 Eos # (Auto) 0.1 10^3/uL (0.0-0.8) 03/19/25 15:37 Baso # (Auto) 0.0 10^3/uL (0.0-0.1) 03/19/25 15:37 Nucleated RBC % (auto) 0 % 03/19/25 15:37 Nucleated RBCs # 0.0 /100WBC 03/19/25 15:37 Sodium 138 mmol/L (136-145) 03/19/25 15:37 Potassium 4.0 mmol/L (3.5-5.1) 03/19/25 15:37 Chloride 101 mmol/L (98-107) 03/19/25 15:37 Carbon Dioxide 22 mmol/L (22-29) 03/19/25 15:37 Anion Gap 19.0 (5-19) 03/19/25 15:37 BUN 21 mg/dL (8-23) 03/19/25 15:37 Creatinine 1.1 mg/dL (0.7-1.2) 03/19/25 15:37 GFR Calculation Not Reportable 03/19/25 15:37 Glucose 121 mg/dL (65-115) H 03/19/25 15:37 POC Glucose 120 mg/dL (70-110) H 03/19/25 15:24 Calculated Osmolality 290 mOsm/kg (285-295) 03/19/25 15:37 Calcium 9.0 mg/dL (8.5-10.5) 03/19/25 15:37 Total Bilirubin 0.3 mg/dL (0.15-1.2) 03/19/25 15:37 AST 27 U/L (0-40) 03/19/25 15:37 ALT 23 U/L (0-41) 03/19/25 15:37 Alkaline Phosphatase 80 U/L (40-130) 03/19/25 15:37 Total Protein 6.5 g/dL (6.6-8.7) L 03/19/25 15:37 Albumin 4.2 g/dL (3.5-5.2) 03/19/25 15:37 Globulin 2.3 g/dL (1.3-4.6) 03/19/25 15:37 Urine Color Yellow (Yellow) 03/19/25 15:51 Urine Appearance Clear (CLEAR) 03/19/25 15:51 Urine pH 5.5 (5-7) 03/19/25 15:51 Ur Specific [place] 1.013 (1.005-1.030) 03/19/25 15:51 Urine Protein 1+ (Negative) A 03/19/25 15:51 Urine Glucose (UA) Negative (Normal) 03/19/25 15:51 Urine Ketones Negative (Negative) 03/19/25 15:51 Urine Blood Negative (Negative) 03/19/25 15:51 Urine Nitrate Negative (Negative) 03/19/25 15:51 Urine Bilirubin Negative (Negative) 03/19/25 15:51 Urine Urobilinogen 0.2 mg/dL (Negative) 03/19/25 15:51 Ur Leukocyte Esterase Negative (Negative) 03/19/25 15:51 Amorphous Sediment Not Reportable 03/19/25 15:51 Urine Opiates Screen Positive ng/mL (Negative) H 03/19/25 15:51 Ur Barbiturates Screen Negative ng/mL (Negative) 03/19/25 15:51 Ur Phencyclidine Scrn Negative ng/mL (Negative) 03/19/25 15:51 Ur Amphetamines Screen Negative ng/mL (Negative) 03/19/25 15:51 U Benzodiazepines Scrn Negative ng/mL (Negative) 03/19/25 15:51 Urine Cocaine Screen Negative ng/mL (Negative) 03/19/25 15:51 U Marijuana (THC) Screen Negative ng/mL (Negative) 03/19/25 15:51 All radiology interpretation(s) finalized by discharge Discharge Plan Discharge Patient Disposition: Home Clinical Impression: Subacute subdural hematoma, Concussion Condition: Stable Prescriptions: No Action calcium carb-D3-mag [id number] [id number]-mg tablet 1 tab PO DAILY Rx Instructions: administer with a meal furosemide 40 mg tablet 40 mg PO BID Spiriva Respimat 1.25 mcg/actuation mist 2 puff inhalation DAILY Qty: 4 3RF ferrous sulfate 324 mg (65 mg iron) tablet,delayed release (DR/EC) 324 mg PO DAILY Qty: 30 0RF mecobalamin (vitamin B12) 1,000 mcg tablet,disintegrating 1,000 mcg sublingual DAILY Qty: 30 6RF Rx Instructions: place tablet under tongue and allow to dissolve for at least30 secs before swallowing hydrocodone-acetaminophen 5-325 mg tablet 1 tab PO QID PRN (Reason: pain) 30 Days Qty: 120 0RF Rx Instructions: Not to be taken with other opioids alcohol or benzodiazepines gabapentin 300 mg capsule 300 mg PO DAILY Qty: 90 1RF prednisone 5 mg tablet 5 mg PO DAILY Qty: 90 1RF isosorbide mononitrate 30 mg tablet extended release 24 hr PO hydralazine 25 mg tablet PO potassium chloride [Klor-Con M20] 20 mEq tablet,ER particles/crystals PO finasteride 5 mg tablet PO budesonide-formoterol [Symbicort] 160-4.5 mcg/actuation HFA aerosol inhaler See Rx Instructions .ROUTE .COMPLEX Qty: 11 3RF Dose Instruction: INHALE 2 PUFFS BY MOUTH EVERY 12 HOURS FOR 30 DAYS Rx Instructions: INHALE 2 PUFFS BY MOUTH EVERY 12 HOURS FOR 30 DAYS fluticasone propionate [Flonase Allergy Relief] 50 mcg/actuation spray,suspension 1 spray intranasal BID PRN (Reason: allergy symptoms) Qty: 16 5RF Rx Instructions: administer into each nostril cyanocobalamin (vitamin B-12) 1,000 mcg tablet, sublingual 1,000 mcg sublingual DAILY Qty: 30 2RF albuterol sulfate 90 mcg/actuation HFA aerosol inhaler 2 puff inhalation QID PRN (Reason: shortness of breath or wheezing) 30 Days Qty: 18 5RF sulfasalazine [Azulfidine] 500 mg tablet 0.5 g PO BID Qty: 180 1RF Rx Instructions: give with food (meal/snack) fexofenadine 60 mg Tablet 60 mg PO BID ascorbic acid (vitamin C) [Vitamin C] 500 mg Tablet 250 mg PO BID lansoprazole [Prevacid 24Hr] 15 mg Capsule,Delayed Release(Dr/Ec) 15 mg PO DAILY cranberry fruit 400 mg Capsule 400 mg PO DAILY Rx Instructions: administer with a meal elderberry fruit and flower 460-115 mg Capsule 1 cap PO BID aspirin 81 mg Tablet,Delayed Release (Dr/Ec) 81 mg PO DAILY tamsulosin 0.4 mg capsule 0.4 mg PO DAILY nitroglycerin [Nitrostat] 0.4 mg Tablet, Sublingual 0.4 mg SUBLINGUAL Q5M PRN (Reason: Chest Pain) vitamin B complex Tablet 1 tab PO BID rosuvastatin 20 mg tablet 20 mg PO DAILY acetaminophen 500 mg Tablet 1,000 mg PO Q6H PRN (Reason: Pain, Moderate) nifedipine 30 mg tablet extended release 24 hr 30 mg PO DAILY garlic 100 mg Tablet 200 mg PO BID Co Q-10 10 mg Capsule 10 mg PO DAILY indomethacin 25 mg capsule 25 mg PO TID PRN (Reason: GOUT) metoprolol succinate 25 mg tablet extended release 24 hr 25 mg PO DAILY Vitamin D3 25 mcg (1,000 unit) Tablet,Chewable 50 mcg PO BID Xarelto 15 mg tablet 15 mg PO DAILY Discharge Orders: Discharge ED (Routine); Ordered 03/19/25 Ordered By: Grisel Flores Referrals: Kalani Guillaume MD [Primary Care Provider, Family Practice] Discharge Diet: Usual diet Discharge Activity: Increase activity as tolerated Patient Instructions: Concussion (ED), Post Concussion Syndrome (ED), Opioid Safety, Pain Management, Patient Portal & Stephen Instructions Activity Restrictions/Additional Instructions: Thank you for choosing [facility] for your healthcare needs today. You have been screened and evaluated and felt safe for discharge. Health conditions do change or evolve sometimes and as such it is important that you follow up with your Primary Doctor to be re checked, 3-5 days is a general good time frame for follow up. You are always welcome to return to the ED for re assessment if your symptoms are worsening or you have new concerns Print Language: Haitian Coding Level of Care Code ED Student Counselor for Tiffanie Xie
--- NOTE | 2025-03-19 15:24 | ECG_ITS ---
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 Measurements Intervals [place] Rate: 60 P: 0 NM: 0 QRS: 231 QRSD: 144 T: 49 QT: 459 QTc: 459 Interpretive Statements ELECTRONIC VENTRICULAR PACEMAKER ABNORMAL RHYTHM ECG Compared to ECG 05/13/2023 12:37:42 No significant changes Electronically Signed On 03-19-2025 23:25:25 CDT by Shara Eckert M.D. [email or web address]
[2025-03-19 15:31] VITALS: BP 119/65; PULSE 60; RESP 16; O2SAT 96
[2025-03-19 15:48] LABS: Hematocrit 33.7 % (37-53); Hemoglobin 10.00 g/dL (11.27-16.99); Mean Corpuscular HGB Conc 29.7 g/dL (30-55); Mean Corpuscular Hemoglobin 28.7 pg (27-33); Mean Corpuscular Volume 96.8 fl (82-101); Nucleated Red Blood Cells % 0 %; Platelet Count 181 10^3/cmm (157-399); Red Blood Count 3.48 10^6/uL (3.85-5.65); White Blood Count 6.36 10^3/uL (3.29-11.43)
[2025-03-19 15:57] VITALS: BP 119/65; PULSE 61; RESP 16; O2SAT 96
[2025-03-19 16:07] LABS: Glucose Urine UA Negative (Normal); Nitrate Urine Negative (Negative); Specific Gravity, Urine 1.013 (1.005-1.030)
[2025-03-19 16:14] LABS: PCP Screen Urine Negative (Negative)
[2025-03-19 16:20] LABS: Alanine Aminotransferase 23 U/L (0-41); Albumin Level 4.2 g/dL (3.5-5.2); Alkaline Phosphatase 80 U/L (40-130); Blood Urea Nitrogen 21 mg/dL (8-23); Calcium 9.0 mg/dL (8.5-10.5); Carbon Dioxide 22 mmol/L (22-29); Chloride 101 mmol/L (98-107); Creatinine Clr Calc Pharmacy 52.9889; Globulin 2.3 g/dL (1.3-4.6); Glucose 121 mg/dL (65-115); Osmolality Calculated 290 mOsm/kg (285-295); Sodium 138 mmol/L (136-145); Total Protein 6.5 g/dL (6.6-8.7)
[2025-03-19 16:24] LABS: Anion Gap 19.0 (5-19); Aspartate Amino Transferase 27 U/L (0-40); Potassium 4.0 mmol/L (3.5-5.1)
[2025-03-19 16:30] VITALS: BP 121/72; PULSE 60; RESP 16; O2SAT 97
[2025-03-19 16:44] LABS: INR 0.90 (0.8-1.2); Partial Thromboplastin Time 28.8 SECONDS (23.9-36.7); Prothrombin Time 12.90 SECONDS (12.1-14.9)
[2025-03-19 16:47] LABS: Add Urine Microscopic? YES
[2025-03-19 16:50] VITALS: BP 121/72; PULSE 60; RESP 16; O2SAT 97
[2025-03-19 17:00] VITALS: BP 121/72; PULSE 74; RESP 16; O2SAT 98
== END 2025-03-19 17:00 | disposition home or self-care (01) ==
PROVIDERS: Emergency Provider Emergency Medicine; PCP Family Medicine
DX: S06.5X0D Traumatic subdural hemorrhage without loss of consciousness, subsequent encounter (principal); S06.0X0A Concussion without loss of consciousness, initial encounter; X58.XXXA Exposure to other specified factors, initial encounter; Z79.82 Long term (current) use of aspirin; Z87.891 Personal history of nicotine dependence; I50.9 Heart failure, unspecified; N18.9 Chronic kidney disease, unspecified; J44.9 Chronic obstructive pulmonary disease, unspecified; W19.XXXD Unspecified fall, subsequent encounter
CPT/HCPCS: 36416; 70450; 80053; 80306; 81001; 82962; 85025; 85610; 85730; 93005; 99284

== ENCOUNTER 2025-04-03 08:22 | Emergency (ER) | payer MEDICARE, SELFPAY ==
--- OUTSIDE RECORDS SUMMARY | 2024-06-15 08:40 | XMS_ITS ---
Author Organization [facility] Address [address] [place] [address] Care Team Providers Care Wicker Worker Name Role Phone Kalani Guillaume Primary Care Provider Ruddy Addison Unavailable [phone] Eliezer Sherwood Unavailable [phone] REASON FOR VISIT BILATERAL KNEE Encounters Encounter Location Date Provider Diagnosis [facility] [address] [place] [address] 06/15/2024 Eliezer Sherwood Plan Of Treatment Next Appt Details Provider Name:Karen sadler, 04/05/2025 11:00:00 AM, [address] [place], [address], Progress Notes * Juan M MABRY LDOB: 2 (84 yo M)Acc No.[id number]:06/15/2024 Progress Notes Patient: Juan M Cooper Provider: Duncan Sherwood M.D. :1940 A ge:84 Y S ex:Male Date:06/15/2024 Address:[address] [place] [phone] Pcp:Kalani Guillaume Subjective: * Chief Complaints: * B ILATERAL KNEE Care Plan Details* * Electronic signature of Miguel Sherwood MD on 04/03/2025 at 08:36 AM CDT Sign off status: Pending * Provider: Duncan Sherwood M.D. Date: 0 06/15/2024 Generated for Devante wyane/Ciara/eTransmitting on: 1 08:36 AM CDT
--- OUTSIDE RECORDS SUMMARY | 2024-06-16 04:00 | XMS_ITS ---
Author Organization [facility] Address [address] [place] [address] Care Team Providers Care Airplane Designer Name Role Phone Kalani Guillaume Primary Care Provider Ruddy Addison Unavailable [phone] Eliezer Sherwood Unavailable [phone] REASON FOR VISIT BILATERAL KNEE Encounters Encounter Location Date Provider Diagnosis [facility] [address] [place] [address] 06/16/2024 Eliezer Sherwood Plan Of Treatment Next Appt Details Provider Name:Karen Rosie sadler, 04/05/2025 11:00:00 AM, [address] [place], [address], Progress Notes * Juan M MABRY LDOB: 2 (84 yo M)Acc No.[id number]:06/16/2024 Progress Notes Patient: Juan M oCoper Provider: Duncan Sherwood M.D. :1940 A ge:84 Y S ex:Male Date:06/16/2024 Address:[address] [place], [place] [phone] Pcp:Kalani Guillaume Subjective: * Chief Complaints: * B ILATERAL KNEE Billing Information: * Procedure Codes: Care Plan Details* * Electronic signature of Miguel Sherwood MD on 04/03/2025 at 08:35 AM CDT Sign off status: Pending * Provider: Duncan Sherwood M.D. Date: 0 06/16/2024 Generated for Davidi tone/Ciara/eTransmitting on: 1 08:35 AM CDT
--- OUTSIDE RECORDS SUMMARY | 2024-06-22 09:00 | XMS_ITS ---
Author Organization [facility] Address [address] [place] [address] Care Team Providers Care Regulator Operator Name Role Phone Kalani Guillaume Primary Care Provider Ruddy Addison Unavailable [phone] Sharona Farris Unavailable [phone] REASON FOR VISIT PVD f/u after CTA AFRO Encounters Encounter Location Date Provider Diagnosis [facility] [address] [place] [address] 06/22/2024 Sharona Farris Plan Of Treatment Next Appt Details Provider Name:Karen sadler, 04/05/2025 11:00:00 AM, [address] [place], [address], Progress Notes * Juan M MABRY LDOB: 2 (84 yo M)Acc No.[id number]:06/22/2024 Progress Notes Patient: Juan M Cooper Provider: Nikolai Farris CNP :1940 A ge:84 Y S ex:Male Date:06/22/2024 Address:[address] [place], [place] [phone] Pcp:Kalani Guillaume Subjective: * Chief Complaints: * P VD f/u after CTA AFRO Billing Information: * Procedure Codes: Care Plan Details* * Electronic signature of Mateo Farris CNP on 04/03/2025 at 08:37 AM CDT Sign off status: Pending * Provider: Nikolai Farris CNP Date: 0 06/22/2024 Generated for Devante wayne/Ciara/Marlena on: 1 08:37 AM CDT
--- OUTSIDE RECORDS SUMMARY | 2025-04-02 10:46 | XMS_ITS | Encounter Summary ---
Author Organization [facility] Address 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) Procedures ECHO COMPLETE - CONTRAST AND STRAIN IF INDICATED ECHO COMPLETE - CONTRAST AND STRAIN IF INDICATED IL ECHO TTHRC R-T 2D W/WOM-MODE COMPL SPEC&COLR D IL MYOCRD STRAIN IMG SPECKLE TRCK ASSMT MYOCRD MECH IL TTE W OR WO FOL WCON,DOPPLER Roger Gimenez MD [address] [facility] [address] [place] [address] Phone: tel: fax: [facility] [place] [address] [place] [address] Phone: tel: fax: Referral ID Status Reason Start Date Expiration Date V isits Requested Visits Authorized [id number] [facility] to Schedule 03/22/2025 06/13/2025 1 1 Reason for Visit * Echocardiography (Routine) - Closed Specialty Diagnoses / Procedures Referred By Contac t Referred To Contact Radiology Diagnoses Chronic combined systolic and diastolic CHF, 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) Procedures ECHO COMPLETE - CONTRAST AND STRAIN IF INDICATED ECHO COMPLETE - CONTRAST AND STRAIN IF INDICATED IL ECHO TTHRC R-T 2D W/WOM-MODE COMPL SPEC&COLR D IL MYOCRD STRAIN IMG SPECKLE TRCK ASSMT MYOCRD MECH IL TTE W OR WO FOL WCON,DOPPLER Roger Gimenez MD [address] [place] [address] Phone: tel: fax: [facility] [place] [address] [place] [address] Phone: tel: fax: Referral ID Status Reason Start Date Expiration Date V isits Requested Visits Authorized [id number] Closed [facility] View CTS to Schedule 03/22/2025 06/13/2025 1 1 Encounter Details Date Type Department Care Team (Latest Contact Info) Description 04/02/2025 10:46 AM CDT - 04/02/2025 11:59 PM CDT Hospital Encounter [facility] [place] [address] [place] [address] Roger Gimenez MD [address] [facility] [address] [place] [address] Arrived Discharge Disposition: Home or Self Care Social [...] on file 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 fluticasone propionate (FLONASE) 50 mcg/spray [place], Suspension nasal inhaler USE 1 SPRAY(S) IN [...] Take 0.4 mg by mouth daily. 10/29/2016 documented as of this encounter Plan of Treatment Upcoming Encounters Date Type Department Care Team (Late st Contact Info) Description 04/11/2025 9:30 AM CDT Office Visit [facility] [address] [place] [address] Madhav Fuchs NP [address] [place] [address] 05/31/2025 8:00 AM BANK ACCOUNTANT Procedure visit [facility] [address] [place] [address] 09/04/2025 2:40 PM CDT Office Visit [facility] [address] [place] [phone] Johan Nicholas FNP [address] [place] [address] 11/15/2025 2:20 PM CDT Office Visit [facility] [address] [place] [address] Emiliana Ocampo MD [address] [place] [address] Pattie Brunson NP [address] [place] [address] documented as of this encounter Procedures Procedure Name Priority Date/Time Associated Diagnosis Comments ECHO COMPLETE Routine 04/02/2025 11:39 AM CDT Chronic combined systolic and diastolic CHF, 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 Study Date: 04/02/2025 Pt Status: Study Time: 11:05:40 AM [facility] #: [id number] Ordering:Roger Gimenez General Education Professor: Sana May Indications and History: Chronic combined systolic and diastolic CHF, NYHA class 3 [I50.42 (ICD-10-CM)]; Ischemic dilated cardiomyopathy (CMS/HCC) [I25.5, I42.0 (ICD-10-CM)] Summary and Conclusion: - Left ventricle: The cavity size is normal. Wall thickness is normal. Global systolic function is moderately to severely reduced. The estimated ejection fraction is 30%. For Epic reporting: the left ventricular ejection fraction is 32.3% by biplane method of disks. There is diffuse hypokinesis worse in the apical and periapical myocardium. Interventricular septum shows dyssynergy, consistent with previous thoracotomy, conduction delay or RV pacing. Cannot assess LV diastolic function. - Right ventricle: The cavity size is normal. Pacer wire or catheter noted in right ventricle. Systolic function is mildly reduced. Systolic pressure is within the normal range. - Left atrium: The atrium is moderately dilated. - Right atrium: Pacer wire or catheter noted in right atrium. - Aortic valve: The valve is probably trileaflet. The leaflets are mildly thickened and mildly calcified. There is mild stenosis. There is mild regurgitation. - Mitral valve: The annulus is mildly calcified. mildly thickened. There is mild regurgitation. - Tricuspid valve: There is mild regurgitation. Comparison: Compared to the prior study, there has been no significant interval change. Procedure information: Study status: Routine. Procedure: A transthoracic echocardiogram was performed. Image quality was suboptimal. Scanning was performed from the parasternal, apical, subcostal, and suprasternal notch acoustic windows. Study components: M-mode, 2D, complete spectral Doppler, and color Doppler. Height: 175.3cm. Height: 69in. Weight: 75kg. Weight: 165.3lb. BMI: 24.4kg/m^2. BSA: 1.92m^2. Study date: 04/02/2025. Study time: 11:05 AM. Cardiac Anatomy: LEFT VENTRICLE: The cavity size is normal. Wall thickness is normal. Global systolic function is moderately to severely reduced. The estimated ejection fraction is 30%. For Epic reporting: the left ventricular ejection fraction is 32.3% by biplane method of disks. There is diffuse hypokinesis worse in the apical and periapical myocardium. Interventricular septum shows dyssynergy, consistent with previous thoracotomy, conduction delay or RV pacing. Cannot assess LV diastolic function. RIGHT VENTRICLE: The cavity size is normal. Pacer wire or catheter noted in right ventricle. Systolic function is mildly reduced. Systolic pressure is within the normal range. LEFT ATRIUM: The atrium is moderately dilated. RIGHT ATRIUM: The atrium is normal in size. Pacer wire or catheter noted in right atrium. ATRIAL SEPTUM: No obvious PFO or ASD identified by 2D imaging and color Doppler. AORTIC VALVE: The valve is probably trileaflet. The leaflets are mildly thickened and mildly calcified. Mobility is not restricted. There is mild stenosis. There is mild regurgitation. MITRAL VALVE: The annulus is mildly calcified. mildly thickened. Mobility is not restricted. No evidence for prolapse. There is no evidence for stenosis. There is mild regurgitation. TRICUSPID VALVE: Structurally normal valve. Mobility is unrestricted. There is no evidence for stenosis. There is mild regurgitation. PULMONIC VALVE: Not well visualized. The valve appears to be grossly normal. There is no evidence for stenosis. There is no significant regurgitation. PERICARDIUM: There is no pericardial effusion. AORTA: Aortic root: The root is not dilated. Aortic arch: The vessel is not dilated. INTRACARDIAC MASS THROMBUS: No apparent intracavitary masses or thrombi detected. Measurements Left ventricle Value Left atrium Value FS, LAX 17 % Vol, S 84 ml FS 17 % Vol/bsa, S 44 ml/m^2 EDV 197 ml ESV 130 ml Aortic valve Value EF 34 % Peak v, S 172 cm/sec EDV/bsa 103 ml/m^2 Mean v, S 105 cm/sec ESV/bsa 68 ml/m^2 VTI, S 29.6 cm EF, 1-p A2C 28 % Mean grad, S 5 mm Hg EF, 1-p A4C 35 % Peak grad, S 12 mm Hg EDV, 2-p 138 ml PHT 511 ms ESV, 2-p 94 ml EF, 2-p 32 % Mitral valve Value EDV/bsa, 2-p 72 ml/m^2 Peak LV-LA grad S 104 mm Hg ESV/bsa, 2-p 49 ml/m^2 EDV, MM Teich. 197 ml Tricuspid valve Value EF, MM Teich. 34 % TR peak v 248 cm/sec EDV/bsa, MM Teich. 103 ml/m^2 Peak RV-RA grad, S 25 mm Hg EF, MM on 2D Teich. 34 % E/e', lat yonathan, TDI 22 E/e', med yonathan, TDI 26 E/e', avg, TDI 24 Legend: (L) and (H) fazal values outside specified reference range. Prepared and Electronically Authenticated James Gastelum MD Confirmed 04/02/2025 13:16 Procedure Note James Gastelum MD - 04/02/2025 [facility] Radiology Services - Echocardiology [address] [address] Transthoracic Echocardiography Patient: Juan M Sierra Study ID:[id number] Gender: M : 1940 Age: 84 Room: [facility] Study Date: 04/02/2025 Pt Status: Study Time: 11:05:40 AM [facility] #: [id number] Ordering:Roger Gimenez General Education Professor: Sana May Indications and History: Chronic combined systolic and diastolic CHF,NYHA class 3 [I50.42 (ICD-10-CM)]; Ischemic dilated cardiomyopathy (CMS/HCC) [I25.5, I42.0 (ICD-10-CM)] Summary and Conclusion: - Left ventricle: The cavity size is normal. Wall thickness is normal.Global systolic function is moderately to severely reduced. The estimatedejection fraction is 30%. For Epic reporting: the left ventricular ejectionfraction is 32.3% by biplane method of disks. There is diffuse hypokinesis worsein the apical and periapical myocardium. Interventricular septum shows dyssynergy, consistent with previous thoracotomy, conduction delay orRV pacing. Cannot assess LV diastolic function. - Right ventricle: The cavity size is normal. Pacer wire or catheter notedin right ventricle. Systolic function is mildly reduced. Systolic pressureis within the normal range. - Left atrium: The atrium is moderately dilated. - Right atrium: Pacer wire or catheter noted in right atrium. - Aortic valve: The valve is probably trileaflet. The leaflets aremildly thickened and mildly calcified. There is mild stenosis. There is mild regurgitation. - Mitral valve: The annulus is mildly calcified. mildly thickened. Thereis mild regurgitation. - Tricuspid valve: There is mild regurgitation. Comparison: Compared to the prior study, there has been no significant interval change. Procedure information: Study status: Routine. Procedure: Atransthoracic echocardiogram was performed. Image quality was suboptimal. Scanning was performed from the parasternal, apical, subcostal, and suprasternalnotch acoustic windows. Study components: M-mode, 2D, completespectral Doppler, and color Doppler. Height: 175.3cm. Height: 69in. Weight:75kg. Weight: 165.3lb. BMI: 24.4kg/m^2. BSA: 1.92m^2. Study date: 04/02/2025. Study time: 11:05 AM. Cardiac Anatomy: LEFT VENTRICLE: The cavity size is normal. Wall thickness is normal.Global systolic function is moderately to severely reduced. The estimatedejection fraction is 30%. For Epic reporting: the left ventricular ejectionfraction is 32.3% by biplane method of disks. There is diffuse hypokinesis worse inthe apical and periapical myocardium. Interventricular septum showsdyssynergy, consistent with previous thoracotomy, conduction delay or RV pacing.Cannot assess LV diastolic function. RIGHT VENTRICLE: The cavity size is normal. Pacer wire or catheter notedin right ventricle. Systolic function is mildly reduced. Systolic pressureis within the normal range. LEFT ATRIUM: The atrium is moderately dilated. RIGHT ATRIUM: The atrium is normal in size. Pacer wire or catheter notedin right atrium. ATRIAL SEPTUM: No obvious PFO or ASD identified by 2D imaging and color Doppler. AORTIC VALVE: The valve is probably trileaflet. The leaflets are mildly thickened and mildly calcified. Mobility is not restricted. There ismild stenosis. There is mild regurgitation. MITRAL VALVE: The annulus is mildly calcified. mildly thickened. Mobilityis not restricted. No evidence for prolapse. There is no evidence forstenosis. There is mild regurgitation. TRICUSPID VALVE: Structurally normal valve. Mobility isunrestricted. There is no evidence for stenosis. There is mild regurgitation. PULMONIC VALVE: Not well visualized. The valve appears to be grosslynormal. There is no evidence for stenosis. There is no significantregurgitation. PERICARDIUM: There is no pericardial effusion. AORTA: Aortic root: The root is not dilated. Aortic arch: The vessel is not dilated. INTRACARDIAC MASS THROMBUS: No apparent intracavitary masses or thrombi detected. Measurements Left ventricle Value Left atrium Value FS, LAX 17 % Vol, S 84 ml FS 17 % Vol/bsa, S 44 ml/m^2 EDV 197 ml ESV 130 ml Aortic valve Value EF 34 % Peak v, S 172 cm/sec EDV/bsa 103 ml/m^2 Mean v, S 105 cm/sec ESV/bsa 68 ml/m^2 VTI, S 29.6 cm EF, 1-p A2C 28 % Mean grad, S 5 mm Hg EF, 1-p A4C 35 % Peak grad, S 12 mm Hg EDV, 2-p 138 ml PHT 511 ms ESV, 2-p 94 ml EF, 2-p 32 % Mitral valve Value EDV/bsa, 2-p 72 ml/m^2 Peak LV-LA grad S 104 mm Hg ESV/bsa, 2-p 49 ml/m^2 EDV, MM Teich. 197 ml Tricuspid valve Value EF, MM Teich. 34 % TR peak v 248 cm/sec EDV/bsa, MM Teich. 103 ml/m^2 Peak RV-RA grad, S 25 mm Hg EF, MM on 2D Teich. 34 % E/e', lat yonathan, TDI 22 E/e', med yonathan, TDI 26 E/e', avg, TDI 24 Legend: (L) and (H) fazal values outside specified reference range. 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
[2025-04-03] VITALS (9 sets, daily range): BP systolic 136–167; BP diastolic 75–87; PULSE 65–79; RESP 13–17; TEMP 36.4; O2SAT 95–97; BMI 24.3
--- NOTE | 2025-04-03 08:25 | ECG_ITS ---
[facility] 2025-04-03 Pat Name: Juan M Sierra Department: Room: Gender: Male Subeditor: : 1940 Requested By: Calvin Rojas Order Number: [id number] Jez MD: Shara Eckert M.D. Measurements Intervals Peterson Rate: 64 P: 227 DE: 167 QRS: 247 QRSD: 162 T: 59 QT: 456 QTc: 471 Interpretive Statements ELECTRONIC ATRIAL PACEMAKER ELECTRONIC VENTRICULAR PACEMAKER ABNORMAL RHYTHM ECG Compared to ECG 03/19/2025 15:24:37 No significant changes Electronically Signed On 04-03-2025 15:34:22 CDT by Shara Eckert M.D. [email or web address]
--- NOTE | 2025-04-03 08:25 | CT_ITS ---
WS: [id number] CT HEAD TECHNIQUE: Noncontrast CT of the head obtained from the skullbase to the vertex. CLINICAL INFORMATION: Symptoms of acute stroke COMPARISON: 03/19/2025 DLP: [id number] scans at [facility] use at least one of these dose optimization techniques: automated exposure control; mA and/or kV adjustment per patient size (includes targeted exams where dose is matched to clinical indication); or iterative reconstruction. FINDINGS: Interval increase in size of the LEFT frontal parietal subdural hematoma compared to 03/19/2025. It measures 12 mm at the LEFT frontal parietal convexity. This is predominantly low-attenuation although increased in size since the interval. Mild mass effect on the LEFT frontal and parietal convexities with LEFT to RIGHT midline shift measuring 3 mm. No hydrocephalus. Moderate small vessel changes. Dense vascular calcification. Opacification of RIGHT posterior ethmoid air cells. Mild mucosal thickening in the nasal turbinates partially visualized. Mastoid air cells are well aerated. CT/CT head thrombolytic [address]21 IMPRESSION: 1. LEFT frontal parietal subdural hematoma has increased in size compared to 1 with predominantly low attenuation blood products which have a subacut e appearance. No significant increased attenuation blood products. Subdural hem atoma measures 12 mm in maximal transverse dimension at the frontal parietal co nvexity. 2. Mild mass effect on the LEFT frontal lobe and LEFT lateral ventricle. 3. Mild LEFT to RIGHT midline shift measuring 2 to 3 mm new from previous. 4. No hydrocephalus. 5. Dense vascular calcification. Notified Calvin Chan DO at 04/03/2025 8:56 AM.
--- OUTSIDE RECORDS SUMMARY | 2025-04-03 08:35 | XMS_ITS | Clinical Summary ---
Author Organization [facility] [place] Address [address] [place] [address] Care Team Providers Care Digital Measurement Advisor Name Role Phone Kalani Guillaume MD Primary Care Provider + [phone] Allergies Active Allergy Reactions Criticality Noted Date [...] daily. Active fluticasone propionate (FLONASE) 50 mcg/spray [place], Suspension nasal inhaler USE 1 SPRAY(S) IN EACH NOSTRIL TWICE DAILY NEEDED FOR ALLERGIES Active predniSONE (DELTASONE) 5 mg tablet Take 1 Tablet by mouth daily. 01/20/20 24 Active furosemide (LASIX) 40 mg tablet Take 1 tablet by mouth once daily 90 Tablet 3 03/16/20 24 Active rosuvastatin (CRESTOR) 20 mg tabletIndication s:Atherosclerosi s of coronary artery, unspecified vessel or lesion type, unspecified whether angina present, unspecified whether wiyot or transplanted heart TAKE 1 TABLET BY [...] once daily 90 Tablet 01/02/20 25 Active diphenhydrAMINE- acetaminophen (TYLENOL PM) 25-500 mg [...] NEEDED FOR GOUT 09/30/19 22 025 Discontinued HYDROcodone-acet aminophen (NORCO) 5-325 mg tabletIndication s:Biventricular [...] 90 Tablet 3 03/29/20 24 025 Discontinued Active Problems Problem Noted Date Diagnosed Date [...] Encounters Date Type Department Care Team Description 04/02/2025 10:46 AM CDT - 04/02/2025 11:59 PM CDT Hospital Encounter [facility] Ultrasound [place] [address] [place] [phone] Roger Gimenez MD Arrived Discharge Disposition: Home or Self Care 04/02/2025 Results Follow-Up [facility] [address] [place] [address] [phone] Aime Luis PA-C ECHO COMPLETE - CONTRAST AND STRAIN IF INDICATED 03/16/2025 Refill [facility] [address] [place] [phone] Roger Gimenez MD 03/15/2025 Orders Only [facility] [address] [place] [phone] Provider, Abstract 03/14/2025 Refill [facility] [address] [place] [phone] Emiliana Ocampo MD 03/13/2025 External Device Data ST[facility] ABSTRACTION Provider, Abstract 03/13/2025 External Device Data [place] ABSTRACTION Provider, Abstract 03/13/2025 External Device Data [place] ABSTRACTION Provider, Abstract 03/12/2025 Orders Only [facility] [address] [place] [phone] Provider, Abstract 03/10/2025 9:33 PM CDT - 03/13/2025 1:14 PM CDT Hospital Encounter [facility] 6CD Neurology [address] [place] [phone] Washington Wick DO Patel, Taksh, MD Nerella, Ravi V., MD Subdural hematoma (CMS/HCC) Discharge Disposition: Home or Self Care 03/10/2025 Travel 03/01/2025 2:00 PM CDT Office Visit [facility] [address] [place] [phone] Roger Gimenez MD ASH (arteriosclerotic heart disease) (Primary Dx); History of coronary artery stent placement; Chronic combined systolic and diastolic CHF, NYHA class 3 (CMS/HCC); Ischemic dilated cardiomyopathy (CMS/HCC); Atrial fibrillation, unspecified type (CMS/HCC); Chronic anticoagulation; 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; Essential hypertension; Dyslipidemia 02/28/2025 8:00 AM CDT Procedure visit [facility] [address] [place] [phone] Sick sinus syndrome (CMS/HCC) (Primary Dx); Atrial fibrillation, unspecified type (CMS/HCC); Congestive heart failure, unspecified HF chronicity, unspecified heart failure type (CMS/HCC); Ischemic dilated cardiomyopathy (CMS/HCC); Automatic implantable cardioverter-defibril lator in situ 02/26/2025 Telephone [facility] [address] [place] [phone] Roger Gimenez MD 02/26/25 Myears Appt Needs Rescheduled 01/23/2025 External Device Data [place] ABSTRACTION Provider, Abstract from Last 3 Months Immunizations Immunization Administration [...] on file Legal Sex 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 Gender Identity Not on file Sexual Orientation [...] Description 04/11/2025 9:30 AM CDT Office Visit [facility] [address] [place] [address] [place] [phone] Madhav Fuchs NP [address] [place] [phone] 05/31/2025 8:00 AM SAWYER HELPER Procedure visit [facility] [address] [facility] [address] [place] [phone] 09/04/2025 2:40 PM CDT Office Visit [facility] [address] [place] [phone] Johan Nicholas, [facility] [address] [facility] [address] [place] [address] 11/15/2025 2:20 PM CDT Office Visit [facility] [address] [facility] [address] [place] [phone] Emiliana Ocampo MD [address] [facility] [address] [place] [phone] Pattie Brunson NP [address] [facility] [address] [place] [phone] Health Maintenance Due Date Last Done Comments DTAP/TDAP/TD VACCINES (1 - Tdap) 1961 PNEUMOCOCCAL VACCINE 50+ YEA RS (1 of 2 - PCV) 1961 ZOSTER VACCINE (1 of 2) 1992 RSV VACCINE (60+ or ) (1 - 1-dose 75+ series) 2017 Medicare [place]age ([place]) Prev entative Visit/Annual Wellness Visit 06/14/2024 INFLUENZA VACCINE (#1) 2025 06/14/2016, 2015 COLORECTAL SCREENING Discontinued 01/02/2022 Colorectal Cancer Screening Discontinued FIT-DNA Q 3 years Discontinued FIT/FOBT Q 1 year Discontinued Flex Sig/CT Colonography Q 5 years Discontinued Medical Devices Implanted Type Area House Servant Device Identifier Shelf Expiration Date Model / Serial / Lot Patch Vascu-Guard Vg-[id number] - [id number] Implanted:Qty : 1 on 02/09/2012 Biological Right: Arterial SYNOVIS- BIO-VASCULAR INC 09/16/2016 VG-[id number] / / [id number] Sealant Coseal 4ml [id number] - [id number] Implanted:Qty : 1 on 02/09/2012 Biological Right: Arterial CORTES- HLTHCARE CALIN 09/12/2012 [id number] / / [id number] Cement Simplex Hvisc 6194-1-010 - [id number] Implanted:05/2019 by Ian Perkins MD (Quantity not on file) Cement Left: Shoulder GAMAL- HOWMEDICA INT INC 11/11/2020 6194-1-0 [id number] CA Cement Simplex Hvisc 6194-1-010 - [id number] Implanted:10/2019 by Ian Perkins MD (Quantity not on file) Cement Right: Shoulder GAMAL- HOWMEDICA INT INC [id number] 03/13/2021 6194-1-0 / [id number] Road Machine Runner-D Eolia Xt Hf Quad Mri [id number] Surescan Alon2zu - [id number] Implanted:Qty : 1 on 07/06/2023 by Emiliana Ocampo MD at [facility] Defibrillator Left: Chest MEDTRONIC- CARD RHYTHM MGMT 10/09/2024 [id number] / [id number] / M Lead Capsurefix Novus 58cm Endocardial Pacing [id number] - [id number] Implanted:Qty : 1 on 02/04/2023 at [facility] Lead Left: Chest MEDTRONIC- CRM - BULK BUY 10/27/2024 [id number] / [id number] / Lead Pacing Capsure Fix Novus 52cm 147275 - Csc - [id number] Implanted:Qty : 1 on 02/04/2023 at [facility] Lead Left: Chest MEDTRONIC- CRM - BULK BUY 11/13/2024 [id number] / [id number] / Lead Sprint Quattro Secure 62cm [id number] - Csc - [id number] Implanted:Qty : 1 on 07/06/2023 by Emiliana Ocampo MD at [facility] Lead Left: Chest MEDTRONIC- CRM - BULK BUY 04/12/2025 [id number] / [id number] / Lead Attain 88cm St Vent Quad 4798-88 - [id number] Implanted:Qty : 1 on 07/06/2023 by Emiliana Ocampo MD at [facility] Lead Left: Chest MEDTRONIC- CARD RHYTHM MGMT 04/05/2025 4798-88 / [id number] 1V / Mesh Mod Kugel Rnd 10cm [id number] - [id number] Implanted:Qty : 1 on 03/06/2015 by Raymond Matias MD Mesh Left: Groin CR BARD- DAVOL INC 11/09/2019 [id number] / / [id number] Pacemaker [place] Xt Dr Mri Ipg Dual Chmbr Surescan W1dr01 - [id number] Implanted:Qty : 1 on 02/04/2023 at [facility] Pacemaker Left: Chest MEDTRONIC- CRM - BULK BUY 06/27/2024 [id number] / [id number] 7G / Sealant Mynx Arlen 5fr [id number] - [id number] Implanted:Qty : 1 on 02/09/2012 Sealant Left: Arterial ACCESS CLOSURE 10/11/2012 [id number] / / [id number] Head Hum Simpliciti [id number] - [id number] Implanted:Qty : 1 on 04/25/2019 by Ian Perkins MD Shoulder Left: Shoulder TORNIER INC 03/15/2024 [id number] / / Head Hum Simpliciti Nucleus Sz3 [id number] - [id number] Implanted:Qty : 1 on 04/25/2019 by Ian Perkins MD Shoulder Left: Shoulder TORNIER INC 06/27/2023 [id number] / / [id number] Glenoid Aequalis Perform Pgd Crtlc Xl40 Nuk149 - [id number] Implanted:Qty : 1 on 01/17/2020 by Ian Perkins MD Shoulder Right: Shoulder TORNIER INC [id number] 02/22/2022 [id number] / / [id number] Head Hum Simpliciti [id number] - [id number] Implanted:Qty : 1 on 01/17/2020 by Ian Perkins MD Shoulder Right: Shoulder TORNIER INC [id number] 08/14/2024 [id number] / / [id number] Head Hum Simpliciti Nucleus Sz3 Blb693 - [id number] Implanted:Qty : 1 on 01/17/2020 by Ian Perkins MD Shoulder Right: Shoulder TORNIER INC [id number] 09/28/2023 [id number] / / [id number] Zilver 7x80- 7 Implanted: (Quantity not on file) Stent Comp Glnd Aqls 40 Lg Implanted:Qty : 1 on 04/25/2019 by Ian Perkins MD Left: Shoulder TORNIER INC 08/03/2023 BIL030 / / [id number] Procedures Procedure Name Priority Date/Time Associated Diagnosis Comments ECHO COMPLETE Routine 04/02/2025 11:39 AM CDT Chronic combined systolic and diastolic CHF, 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) TELEMETRY REPORT 03/14/2025 3:[address] [...] METABOLIC PANEL Routine 03/10/2025 10:04 AM CDT HI REM INTERROG PM/LDLS PM/IDS <90 D TECH REVIEW Routine 02/28/2025 8:33 PM CDT Sick sinus syndrome (CMS/HCC) Atrial fibrillation, unspecified type (CMS/HCC) Congestive heart failure, unspecified HF chronicity, unspecified heart failure type (CMS/HCC) Ischemic dilated cardiomyopathy (CMS/HCC) Automatic implantable cardioverter-defibri llator in situ HI INTERROGATION EVAL REMOTE </90 D 1/2/ALUM PLANT OPERATOR LD DFB Routine 02/28/2025 8:33 PM CDT Sick sinus syndrome (CMS/HCC) Atrial fibrillation, unspecified type (CMS/HCC) Congestive heart failure, unspecified HF chronicity, unspecified heart failure type (CMS/HCC) Ischemic dilated cardiomyopathy (CMS/HCC) Automatic implantable cardioverter-defibri llator in situ from Last 3 Months Results * ECHO COMPLETE - CONTRAST AND STRAIN IF INDICATED (04/02/2025 11:39 AM CDT) EJECTION FRACTION 32.3 INTERFACE SYSTEM 04/02/2025 11:0 5 AM CDT Narrative INTERFACE SYSTEM - 04/02/2025 1:16 PM CDT [facility] Radiology Services - Echocardiology [address] [facility] [address] [place] [address] Transthoracic Echocardiography Patient: Juna M Mabry Study ID: [id number] Gender: M : 1940 Age: 84 Room: [facility] Study Date: 04/02/2025 Pt Status: Study Time: 11:05:40 AM [facility] #: [id number] Ordering:Roger Gimenez Blood Bank Laboratory Professional: Sana May Indications and History: Chronic combined [...] Procedure Note James Gastelum MD - 04/02/2025 [facility] Radiology Services - Echocardiology [address] [address] Transthoracic Echocardiography Patient: Juan M Mabry Study ID:[id number] Gender: M : 1940 Age: 84 Room: [facility] Study Date: 04/02/2025 Pt Status: Study Time: 11:05:40 AM CSN #: [id number] Ordering:Roger Gimenez Blood Bank Laboratory Professional: Sana May Indications and History: Chronic combined [...] MD Confirmed 04/02/2025 13:16 Roger Gimenez MD US ORDERABLES Final Result INTERFACE SYSTEM Refer to clinic/hospital department * TELEMETRY REPORT (03/14/2025 3:08 PM CDT) [...] convexity compared with 03/12/2025. No new abnormality. Sridevi LAGOS CT ORDERABLES Final Result * (ABNORMAL) CBC WITH DIFFERENTIAL (03/11/2025 2:18 AM CDT) Only the most recent of2 resultswithin the time period is included. [facility] WBC 6.6 4.8 - 10.8 K/uL 03/11/2025 2:37 AM [facility] RBC 3.46(L) 4.60 - 6.20 M/uL 03/11/2025 2:37 AM [facility] HEMOGLOBIN 10.2(L) 14.0 - 18.0 g/dL 03/11/2025 2:37 AM [facility] HEMATOCRIT 32.6(L) 41.0 - 53.0 % 03/11/2025 2:37 AM [facility] MCV 94.2 84.0 - 103.0 fL 03/11/2025 2:37 AM [facility] MCH 29.5 27.0 - 34.0 pg 03/11/2025 2:37 AM [facility] MCHC 31.3 30.0 - 35.0 g/dL 03/11/2025 2:37 AM [facility] PLATELETS 141 140 - 440 K/uL 03/11/2025 2:37 AM [facility] MPV 9.6 8.9 - 12.8 fL 03/11/2025 2:37 AM [facility] RDW 17.9(H) 11.0 - 14.5 % 03/11/2025 2:37 AM [facility] RDW-STDEV 61.4(H) 37.0 - 54.0 fL 03/11/2025 2:37 AM [facility] NEUTROPHILS 74 42 - 75 % 03/11/2025 2:37 AM [facility] LYMPHOCYTES 15(L) 24 - 44 % 03/11/2025 2:37 AM T [facility] MONOCYTES 8 2 - 10 % 03/11/2025 2:37 AM [facility] EOSINOPHILS 2 0 - 7 % 03/11/2025 2:37 AM CDT [facility] BASOPHILS 0 0 - 1 % 03/11/2025 2:37 AM CDT [facility] IMMATURE GRANULOCYTES 1 0 - 2 % 03/11/2025 2:37 AM CDT [facility] NEUTROPHIL ABSOLUTE 4.85 2.00 - 8.00 K/uL 03/11/2025 2:37 AM CDT [facility] LYMPHOCYTE ABSOLUTE 1.00(L) 1.20 - 4.00 K/uL 03/11/2025 2:37 AM CDT [facility] MONOCYTE ABSOLUTE 0.55 0.10 - 0.60 K/uL 03/11/2025 2:37 AM CDT [facility] EOSINOPHIL ABSOLUTE 0.12 0.00 - 0.70 K/uL 03/11/2025 2:37 AM CDT [facility] BASOPHILS ABSOLUTE 0.02 0.00 - 0.20 K/uL 03/11/2025 2:37 AM CDT [facility] IMMATURE GRANULOCYTES ABSOLUTE 0.04 0.00 - 0.10 K/uL 03/11/2025 2:37 AM T [facility] SMEAR REVIEWED: NN - No Action Needed 03/11/2025 2:37 AM [facility] Blood Venipuncture / Unknown 03/11/2025 2:18 AM CDT 03/11/2025 2:26 AM CDT us Olga Sheehan MD HEMATOLOGY ORDERABLES Final Resu lt [facility] CLIA # [id number] [address] [place] [address] [place] [address] * (ABNORMAL) BASIC METABOLIC PANEL (03/11/2025 2:18 AM CDT) SODIUM 138 136 - 145 mmol/L 03/11/2025 3:01 AM CDT [facility] POTASSIUM 3.5 3.5 - 5.1 mmol/L 03/11/2025 3:01 AM [facility] CHLORIDE 102 98 - 107 mmol/L 03/11/2025 3:01 AM [facility] CO2 24 22 - 29 mmol/L 03/11/2025 3:01 AM [facility] CALCIUM 8.9 8.8 - 10.2 mg/dL 03/11/2025 3:01 AM [facility] BUN 23 8 - 23 mg/dL 03/11/2025 3:01 AM [facility] CREATININE 1.36(H) 0.67 - 1.17 mg/dL 03/11/2025 3:01 AM [facility] Comment:The GFR result is no t clinically significant on patients <18 or >70 years of age. GLUCOSE 147(H) 74 - 99 mg/dL 03/11/2025 3:01 AM [facility] GFR 52 mL/min/1. 73 sq meter 03/11/2025 3:01 AM [facility] Comment:eGFR calculated with 2020 CKD-EPI equation. Vegetarian diet, extremely high or low muscle mass, and may affect results. Cystatin C with Glomerular Filtration Rate is a suitable alternative for these patients. ANION GAP 12 9 - 20 mmol/L 03/11/2025 3:01 AM [facility] Blood Venipuncture / Unknown 03/11/2025 2:18 AM CDT 03/11/2025 2:26 AM CDT us Olga Sheehan MD CHEMISTRY ORDERABLES Final Resul t [facility] CLIA # [id number] [address] [place] [address] * PTT (03/10/2025 10:02 PM CDT) PTT 35.0 24.8 - 37.2 seconds 03/10/2025 10:30 PM [facility] Blood Venipuncture / Unknown 03/10/2025 10:02 PM CDT 03/10/2025 10:08 PM CDT [facility] - 03/10/2025 10:30 PM CDT Therapeutic Range: Hi-level PE/DVT heparin protocol 80.1 - 95.0 sec Lo-level PE/DVT heparin protocol 70.1 - 85.0 sec Cardiac Heparin Protocol 70.1 - 100.0 sec Washington Wick DO HEMATOLOGY ORDERABLES Fin al Result Performing Organization Address [facility] [email or web address]] Co de Phone Number [facility] CLIA # [id number] [address] [place] [address] * PROTIME-INR (03/10/2025 10:02 PM CDT) PROTIME 14.5 12.7 - 14.9 Seconds 03/10/2025 10:30 PM CDT [facility] INR 1.1 0.8 - 1.2 03/10/2025 10:30 PM CDT [facility] Blood Venipuncture / Unknown 03/10/2025 10:02 PM CDT 03/10/2025 10:08 PM CDT [facility] - 03/10/2025 10:30 PM CDT Expected Values [...] Wick DO HEMATOLOGY ORDERABLES Fin al Result [facility] CLIA # [id number] [address] [address] [place] [address] * (ABNORMAL) COMPREHENSIVE METABOLIC PANEL (03/10/2025 10:02 PM CDT) Only the most recent of3 resultswithin the time period is included. SODIUM 137 136 - 145 mmol/L 03/10/2025 10:45 PM CDT [facility] POTASSIUM 3.8 3.5 - 5.1 mmol/L 03/10/2025 10:45 PM CDT [facility] CHLORIDE 101 98 - 107 mmol/L 03/10/2025 10:45 PM CDT [facility] CO2 23 22 - 29 mmol/L 03/10/2025 10:45 PM CDT [facility] CALCIUM 9.3 8.8 - 10.2 mg/dL 03/10/2025 10:45 PM CDT [facility] BUN 24(H) 8 - 23 mg/dL 03/10/2025 10:45 PM CDT [facility] CREATININE 1.31(H) 0.67 - 1.17 mg/dL 03/10/2025 10:45 PM T [facility] Comment:The GFR result is no t clinically significant on patients <18 or >70 years of age. GLUCOSE 86 74 - 99 mg/dL 03/10/2025 10:45 PM CDT [facility] TOTAL PROTEIN 6.8 6.4 - 8.3 g/dL 03/10/2025 10:45 PM CDT [facility] ALBUMIN 4.1 3.5 - 5.2 g/dL 03/10/2025 10:45 PM CDT [facility] BILIRUBIN TOTAL 0.7 0.0 - 1.0 mg/dL 03/10/2025 10:45 PM CDT [facility] ALKALINE PHOSPHATASE 72 40 - 129 U/L 03/10/2025 10:45 PM CDT [facility] AST 27 10 - 50 U/L 03/10/2025 10:45 PM CDT [facility] ALT 12 <=50 U/L 03/10/2025 10:45 PM CDT [facility] GFR 54 mL/min/1. 73 sq meter 03/10/2025 10:45 PM CDT [facility] Comment:eGFR calculated with 2020 CKD-EPI equation. Vegetarian diet, extremely high or low muscle mass, and may affect results. Cystatin C with Glomerular Filtration Rate is a suitable alternative for these patients. ANION GAP 13 9 - 20 mmol/L 03/10/2025 10:45 PM CDT [facility] Blood Venipuncture / Unknown 03/10/2025 10:02 PM CDT 03/10/2025 10:10 PM CDT us Washington Wick DO CHEMISTRY ORDERABLES Siobhan l Result Performing Organization Address City/State/[facility] [[email or web address]] Co de Phone Number [facility] CLIA # [id number] [address] [address] * EKG 12-LEAD (03/10/2025 9:46 PM CDT) 03/10/2025 9:46 PM CDT Narrative INTERFACE SYSTEM - 03/11/2025 1:08 PM CDT [address] [address] Test Date: 2025-03-10 Pat Name: JUAN M MABRY Department: 11 Room: 06 Gender: Male Nursing Agency Manager: [id number] : 1940 Requested By: Order Number: [id number] Reading MD: Maria Guadalupe Chong Measurements Intervals [place] Rate: 74 P: 43 HI: 0 QRS: 250 QRSD: 150 T: 60 QT: 438 QTc: 486 Interpretive Statements Ventricular-paced rhythm with intrinsic complexes Biventricular pacemaker detected Abnormal ECG Electronically Signed On 03-11-2025 13:08:13 CDT by Maria Guadalupe Chong Procedure Note Provider, Historical - 03/11/2025 [facility] [address] [place] [address] Test Date: 2025-03-10 Pat Name: JUAN M MABRY Department: 11 Room: 06 Gender: Male Nursing Agency Manager: [id number] : 1940 Requested By: Order Number: [id number] Reading MD: Maria Guadalupe Chong Measurements Intervals [place] Rate: 74 P: 43 HI: 0 QRS: 250 QRSD: 150 T: 60 QT: 438 QTc: 486 Interpretive Statements Ventricular-paced rhythm with intrinsic complexes Biventricular pacemaker detected Abnormal ECG Electronically Signed On 03-11-2025 13:08:13 CDT by Maria Guadalupe Chong us Protocol [facility] MD ECG ORDERABLES Final Result INTERFACE SYSTEM Refer to clinic/hospital department * HI INTERROGATION EVAL REMOTE </90 D 1/2/ALUM PLANT OPERATOR LD DFB, HI REM INTERROG PM/LDLS PM/IDS <90 D TECHREVIEW [...] capture Follow-up with Remote in 3 months. us Emiliana Ocampo MD CARDIAC SERVICES CAMILARosie GRIFFIN Edited Result - Final INTERFACE SYSTEM Refer to clinic/hospital department from Last 3 Months Insurance [employer] PPO [facility] RX excentos Medicare Part D RX CAAL PLANS (INTERNAL) [facility] Internal Plans Advance Directives For more information, please contact: [phone] Documents on File Type Date Recorded Patient Farm Assistant Expl anation Advance Directive POA 04/25/2019 8:59 [...] 7:48 AM 02/04/2023 1:06 PM Care Teams Digital Measurement Advisor Relationship Specialty Start Date End Date Kalani Guillaume MD [address] [place] [address] PCP - General Family Practice 12/31/16
--- OUTSIDE RECORDS SUMMARY | 2025-04-03 08:35 | XMS_ITS | Encounter Summary ---
Author Organization [facility] Address [address] [place] [address] Care Team Providers Care Bread And Pastry Baker Name Role Phone Kalani Guillaume MD Primary Care Provider [phone] Reason for Referral * Outpatient Services (Routine) - Closed Specialty Diagnoses / Procedures Referred By Contac t Referred To Contact Diagnoses Peripheral vascular disease, unspecified Procedures US ANKLE PRESSURE INDEX Charity Ocampo MD NO ADDRESS ON FILE Referral ID Status Reason Start Date Expiration Date Visits Re quested Visits Authorized [id number] Closed 10/06/2012 11/06/2013 1 1 Encounter Details Date Type Department Care Team (Late st Contact Info) Description 10/06/2012 Ancillary Orders [facility] Cardiac Thoracic Vascular Surg [place] [address] [place] [address] Charity Ocampo MD NO ADDRESS ON FILE Peripheral vascular disease, unspecified (Primary Dx) Social History Tobacco Use Types Packs/Day Years Used Date Smoking Tobacco: Former Cigarettes Smokeless Tobacco: Never Alcohol Use Standard Drinks/Week Comments Yes 0 (1 standard drink = 0.6 oz pur e alcohol) Sex and Gender Information Value Date Recorded Sex Assigned at Not on file Legal Sex Male 3:37 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 Location: Vascular laboratory. Patient status: Outpatient. [facility] Study status: [...] MBA, FACS Interpreting:Charity Ocampo MD, MBA, FACS Energy Efficiency Specialist: Cody Mancilla RVT Indications: 443.9 Peripheral vascular [...] study. Location: Vascular laboratory. Patient status: Outpatient. [facility] Study status: [...] Primary documented in this encounter Care Teams Bread And Pastry Baker Relationship Specialty Start Date End Date Kalani Guillaume MD [address] [place] [address] PCP - General Family Practice 12/31/16 documented as of this encounter
--- OUTSIDE RECORDS SUMMARY | 2025-04-03 08:35 | XMS_ITS | Encounter Summary ---
Author Organization [facility] Address [address] [place] [address] Care Team Providers Care Bottle Filler Name Role Phone Kalani Guillaume MD Primary Care Provider + [phone] Reason for Visit * Reason Onset Date Comments Elevated HR 01/06/2023 Encounter Details Date Type Department Care Team (Late st Contact Info) Description 01/06/2023 Telephone [facility] [address] [facility] [address] [place] [address] Emiliana Ocampo MD [address] [facility] [address] [place] [address] Elevated HR Social History Tobacco Use Types Packs/Day Years Used Date Smoking Tobacco: Former Cigarettes Q uit: 06/01/1986 Smokeless Tobacco: Never Alcohol Use Standard Drinks/Week Comments Yes 14 (1 standard drink = 0.6 oz pu re alcohol) Sex and Gender Information Value Date Recorded Sex Assigned at Not on file Legal Sex Male 5:18 PM PHARMACY COORDINATOR Gender Identity Not on file Sexual Orientation [...] Dr Gimenez Person Calling: Jose Phone #: [phone] Relationship to patient: , on PHI Caller [...] Description 04/11/2025 9:30 AM CDT Office Visit [facility] Neurosurgery [address] [place] [address] Madhav Fuchs NP [address] [place] [phone] 05/31/2025 8:00 AM PHARMACY COORDINATOR Procedure visit [facility] [address] [place] [address] 09/04/2025 2:40 PM CDT Office Visit [facility] [address] [place] [address] Johan Nicholas FNP [address], [address] [place] [address] 11/15/2025 2:20 PM CDT Office Visit [facility] [address] [place] [address] Emiliana Ocampo MD [address] [place] [address] Pattie Brunson, JESSICA [address] [facility] [address] [place] [address] documented as of this encounter Visit Diagnoses Not on filedocumented in this encounter Care Teams Bottle Filler Relationship Specialty Start Date End Date Kalani Guillaume MD [address] [place] [address] PCP - General Family Practice 12/31/16 documented as of this encounter
--- OUTSIDE RECORDS SUMMARY | 2025-04-03 08:35 | XMS_ITS | Encounter Summary ---
Author Organization [facility] Address [address] [place] [address] Care Team Providers Care Grain Ii Farmworker Name Role Phone Kalani Guillaume MD Primary Care Provider [phone] Reason for Referral * Outpatient Services (Routine) - Closed Specialty Diagnoses / Procedures Referred By Contac t Referred To Contact Diagnoses PVD (peripheral vascular disease) Procedures CL ARTERIAL FEMORAL RUNOFF Charity Ocampo MD NO ADDRESS ON FILE Referral ID Status Reason Start Date Expiration Date Visits Re quested Visits Authorized [id number] Closed 02/09/2012 02/08/2013 1 1 Encounter Details Date Type Department Care Team (Latest Contact Info) Description 02/09/2012 Ancillary Orders [facility] Interventional Radiology OR [address] 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 Gender Identity Not on file Sexual Orientation Not on file Occupation Industry Job Start Date Job End Date Not on file Not on file Not on file Not on file documented as of this encounter Plan of Treatment Not on file documented as of this encounter Results * CL ARTERIAL FEMORAL RUNOFF (02/09/2012 7:06 PM CDT) Narrative 08/10/2017 8:11 PM MINING MACHINERY ASSEMBLER FINAL - See Provider Note Procedure Note 07/24/2015 FINAL - See Provider Note us Charity Ocampo MD FLUOROSCOPY ORDERABLES Final Result documented in this encounter Visit Diagnoses Diagnosis PVD (peripheral vascular disease) Peripheral vascular disease, unspecified documented in this encounter Care Teams Grain Ii Farmworker Relationship Specialty Start Date End Date Kalani Guillaume MD [address] [place] [address] PCP - General Family Practice 12/31/16 documented as of this encounter
--- OUTSIDE RECORDS SUMMARY | 2025-04-03 08:35 | XMS_ITS | Clinical Summary ---
Author Organization [facility] [employer], [facility] Address [address] [place] [address] Phone Care Team Providers Care Weatherization And Housing Inspector Name Role Phone Kalani Guillaume MD Primary Care Provider [phone] Allergies Active Allergy Reactions Criticality Noted Date [...] mouth 1 (one) time each day Active hydrALAZINE 25 MG tablet Take 25 mg by mouth in the morning and 25 mg at noon and 25 mg in the evening. 4 Active predniSONE 5 MG tablet Take 5 mg by mouth 1 (one) time each day 4 Active indomethacin (INDOCIN) 25 MG capsule Take 25 mg by mouth 1 (one) time if needed for mild pain Active finasteride (PROSCAR) 5 MG tablet Take 5 mg by mouth 1 (one) time each day 4 03/16/20 25 Active Problems Problem Noted Date Diagnosed Date [...] 12/08/2016 Dyslipidemia 12/08/2016 Peripheral vascular disease 11/05/2015 Encounters Date Type Department Care Team Description 03/15/2025 Telephone [facility] [employer] [address] [facility] [address] [place] [address] Flavia Wick MD from Last 3 Months Family History Medical History Relation Comments Heart [...] 10/03/2024 10:35 AM CDT Plan of Treatment Upcoming Encounters Date Type Department Care Team (Late st Contact Info) Description 10/01/2025 10:00 AM CDT Office Visit [facility] [address] [place] [address] Flavia Wick MD [address] [facility] [address] [place] [phone] Health Maintenance Due Date Last Done Comments Pneumococcal Vaccine: 50+ Ye ars (1 of 2 - PCV) 1961 Influenza Vaccine (#1) 2025 Hepatitis B Vaccine Aged Out No longe r eligible based on patient's age to complete this topic Insurance [facility] PPO ([id number]) Care Teams Weatherization And Housing Inspector Relationship Specialty Start Date End Date Kalani Guillaume MD [address] [place], [place] [phone] PCP - General Family Medicine 05/15/20
--- OUTSIDE RECORDS SUMMARY | 2025-04-03 08:35 | XMS_ITS | Encounter Summary ---
Author Organization [employer], [facility] Address [address] [address] Phone Care Team Providers Care Steamtable Attendant Railroad Name Role Phone Kalani Guillaume MD Primary Care Provider [phone] Reason for Visit * Reason Comments Med Refill Encounter Details Date Type Department Care Team ([facility] Contact Info) Description 05/17/2022 Refill [facility] [employer] [address] [address] Carline Richards NP [address] [address] Social History Tobacco Use Types Packs/Day Years Used Date Smoking Tobacco: Former Cigarettes Q uit: 1986 Smokeless Tobacco: Never Alcohol Use Standard Drinks/Week [...] Department Care Team (Late Contact Info) Description 10/01/2025 10:00 AM CDT Office Visit [facility] [employer] [address] [place] [address] Flavia Wick MD [address] [address] documented as of this encounter Visit Diagnoses Not on filedocumented in this encounter Care Teams Steamtable Attendant Railroad Relationship Specialty Start Date End Date Kalani Guillaume MD [address] [place] [address] PCP - General Family Medicine 05/15/20 documented as of this encounter
--- OUTSIDE RECORDS SUMMARY | 2025-04-03 08:35 | XMS_ITS | Encounter Summary ---
Author Organization [facility] Address [address] [place] [address] Care Team Providers Care Mortician Supplies Sales Representative Name Role Phone Kalani Guillaume MD Primary Care Provider [phone] Encounter Details Date Type Department Care Team (Late st Contact Info) Description 04/02/2025 Results Follow-Up [facility] [address] [facility] [address] [place] [address] Aime Luis PA-C [address] [facility] [address] [place] [address] ECHO COMPLETE - CONTRAST AND STRAIN IF INDICATED Social History Tobacco Use Types Packs/Day Years [...] on file Legal Sex Male 5:18 PM BROWN STOCK WASHER Gender Identity Not on file Sexual Orientation Not on file documented as of this encounter Miscellaneous Notes * Result Encounter Note - Aime Luis PA-C - 04/02/2025 4:39 PM CDT Echo reviewed, EF essentially the same at 30% (previously 25-30%). Mild /AI, MR, TR. Stable compared to last echo, no change at this time. documented in this encounter Plan of Treatment Upcoming Encounters Date Type Department Care Team (Late st Contact Info) Description 04/11/2025 9:30 AM CDT Office Visit [facility] Neurosurgery [address] [place] [address] Madhav Fuchs NP [address] [place] [phone] 05/31/2025 8:00 AM BROWN STOCK WASHER Procedure visit [facility] [address] [place] [phone] 09/04/2025 2:40 PM CDT Office Visit [facility] [address] [place] [address] Johan Nicholas FNP [address], [address] [place] [address] 11/15/2025 2:20 PM CDT Office Visit [facility] [address] [place] [address] Emiliana Ocampo MD [address] [place] [address] Pattie Brunson NP [address], [address] [place] [phone] documented as of this encounter Visit Diagnoses Not on filedocumented in this encounter Care Teams Mortician Supplies Sales Representative Relationship Specialty Start Date End Date Kalani Guillaume MD [address] [place] [address] PCP - General Family Practice 12/31/16 documented as of this encounter
--- OUTSIDE RECORDS SUMMARY | 2025-04-03 08:36 | XMS_ITS | Encounter Summary ---
Author Organization [facility] Address [address] [place] [address] Care Team Providers Care Slipper Maker Name Role Phone Kalani Guillaume MD Primary Care Provider Encounter Details Date Type Department Care Team (Latest Contact Info) Description 09/20/2003 Outpatient Historical [facility] Orthopedics- 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
--- OUTSIDE RECORDS SUMMARY | 2025-04-03 08:36 | XMS_ITS | Encounter Summary ---
Author Organization [facility] Address [address] [place] [address] Care Team Providers Care Accounts Payable Bookkeeper Name Role Phone Kalani Guillaume MD Primary Care Provider Encounter Details Date Type Department Care Team (Latest Contact Info) Description 03/06/2004 Outpatient Historical [facility] Bob Noel MD [address] [place] [address] [place] [address] DISC DIS NEC/NOS-LUMBAR (Primary Dx) Social History Tobacco Use Types Packs/Day Years Used Date Smoking Tobacco: Never Assessed Sex and Gender Information Value Date Recorded Sex Assigned at Not on file Legal Sex Male 3:37 AM REAL ESTATE 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
--- OUTSIDE RECORDS SUMMARY | 2025-04-03 08:36 | XMS_ITS | Clinical Summary ---
Author Organization [facility] [employer] Address [address] [place] [address] Care Team Providers Care Stitching Machine Setter Name Role Phone Kalani Guillaume MD Primary Care Provider [phone] Allergies Active Allergy Reactions Criticality Noted Date Comments Iodine Rash Low 12/12/2008 Morphine Rash Low 12/12/2008 Povidone-Iodine Rash Low 12/12/2008 Medications ascorbic acid (VITAMIN C) 1,000 mg Oral Tab Take 1,000 mg by mouth 2 times daily. Active vitamin B complex (B-COMPLEX) Oral Tab Take 1 Tablet by mouth 2 times daily. Active Mcdermitt-3 Fatty Acids (SUPER OMEGA-3) 1,000 mg Oral [...] rivaroxaban (Xarelto) 2.5 mg TabletIndications :Atherosclerosis of [place] artery of both lower extremities with intermittent [...] on file Legal Sex Male 3:37 AM STORAGE FACILITY HOUSEKEEPER Gender Identity Not on file Sexual Orientation Not on file Occupation Industry Job Start Date Job End Date Not on file Not on file Not on file Not on file Last Filed Vital Signs Vital Sign Reading Time Taken Comments Blood Pressure 124/84 08/06/2020 12:55 PM STORAGE FACILITY HOUSEKEEPER Pulse 73 08/06/2020 12:55 PM STORAGE FACILITY HOUSEKEEPER Temperature 36.4 C (97.6 F) 01/18/2020 8:00 AM CDT Respiratory Rate 16 01/18/2020 8:00 AM CDT Oxygen Saturation 98% 08/06/2020 12:55 PM STORAGE FACILITY HOUSEKEEPER Inhaled Oxygen Concentration - - Weight 81 kg (178 lb 9.6 oz) 08/06/2020 12:55 PM STORAGE FACILITY HOUSEKEEPER Height 175.3 cm (5' 9 ) 08/06/2020 12:55 PM STORAGE FACILITY HOUSEKEEPER Body Mass Index 26.37 08/06/2020 12:55 PM STORAGE FACILITY HOUSEKEEPER Plan of Treatment Health Maintenance Due Date Last Done Comments DTAP/TDAP/TD VACCINES (1 - Tdap) 1959 PNEUMOCOCCAL VACCINE 50+ YEARS (1 of 1 - PCV) 06/05/19 92 ZOSTER VACCINE (1 of 2) 1992 RSV VACCINE (60+ or ) (1 - 1-dose 75+ series) 2017 INFLUENZA VACCINE (#1) 2025 Medical Devices Implanted Type Area Greenhouse Florist Device Identifier Shelf Expiration Date Model / Serial / Lot Patch Vascu-Guard [id number]-[id number] - [id number] Implanted:Qty : 1 on 02/09/2012 at [facility] Biological Right: Arterial SYNOVIS- B[employer]VASC[employer] INC 09/16/2016 [id number] / / [id number] Sealant Coseal 4ml [id number] - [id number] Implanted:Qty : 1 on 02/09/2012 at [facility] Biological Right: Arterial CORTES- HLTHCARE CALIN 09/12/2012 [id number] / / [id number] Cement Simplex Hvisc 6194-1-010 - [id number] Implanted:05/2019 by Ian Perkins MD at [facility] (Quantity not on file) Cement Left: Shoulder GAMAL- HOWMEDICA INT INC 11/11/2020 6194-1-01 0 / / [id number] A Cement Simplex Hvisc 6194-1-010 - [id number] Implanted:10/2019 by Ian Perkins MD at [facility] (Quantity not on file) Cement Right: Shoulder GAMAL- HOWMEDICA INT INC [id number] 03/13/2021 6194-1- 0 / / [id number] A Mesh Mod Kugel Rnd 10cm [id number] - [id number] Implanted:Qty : 1 on 03/06/2015 by Raymond Matias MD at [facility] Mesh Left: Groin CR BARD- DAVOL INC 11/09/2019 [id number] / / [id number] Sealant Mynx Arlen 5fr Kk1935 - [id number] Implanted:Qty : 1 on 02/09/2012 at [facility] Sealant Left: Arterial ACCESS CLOSURE 10/11/2012 [id number] / / [id number] Head Hum Simpliciti 26f97pf [id number] - [id number] Implanted:Qty : 1 on 04/25/2019 by Ian Perkins MD at [facility] Shoulder Left: Shoulder TORNIER INC 03/15/2024 [id number] / / [id number] 2 Head Hum Simpliciti Nucleus Sz3 [id number] - [id number] Implanted:Qty : 1 on 04/25/2019 by Ian Perkins MD at [facility] Shoulder Left: Shoulder TORNIER INC 06/27/2023 [id number] / / [id number] Glenoid Aequalis Perform Pgd Crtlc Xl40 Vcf584 - [id number] Implanted:Qty : 1 on 01/17/2020 by Ian Perkins MD at [facility] Shoulder Right: Shoulder TORNIER INC [id number] 02/22/2022 [id number] / / [id number] Head Hum Simpliciti Nucleus Sz3 [id number] - [id number] Implanted:Qty : 1 on 01/17/2020 by Ian Perkins MD at [facility] Shoulder Right: Shoulder TORNIER INC [id number] 09/28/2023 [id number] / / [id number] Head Hum Simpliciti [id number] - [id number] Implanted:Qty : 1 on 01/17/2020 by Ian Perkins MD at [facility] Shoulder Right: Shoulder TORNIER INC [id number] 08/14/2024 [id number] / / [id number] Zilver 7x80- 7 Implanted: (Quantity not on file) Stent Comp Glnd Aqls 40 Lg Implanted:Qty : 1 on 04/25/2019 by Ian Perkins MD at [facility] Left: Shoulder TORNIER INC 08/03/2023 [id number] / / [id number] Insurance [employer] [id number] HMO RX [employer] Medicare Part D RX CAAL PLANS (INTERNAL) [facility] Internal Plans Advance Directives For more information, please contact: [phone] Documents on File Type Date Recorded Patient Art Manager Expl anation Advance Directive POA 04/25/2019 8:59 [...] 6:51 AM 01/07/2017 4:55 PM Care Teams Stitching Machine Setter Relationship Specialty Start Date End Date Kalani Guillaume MD [address] [place] [address] PCP - General Family Practice 12/31/16
--- OUTSIDE RECORDS SUMMARY | 2025-04-03 08:36 | XMS_ITS | Encounter Summary ---
Author Organization [facility] Address [address] [place] [address] Care Team Providers Care Supervisor Dehydrogenation Name Role Phone Kalani Guillaume MD Primary Care Provider [phone] Encounter Details Date Type Department Care Team (Late st Contact Info) Description 06/27/2003 Inpatient Historical [facility] IN [facility]ED Jace Lilly MD [address] [place] [address] LOC OSTEOARTH NOS-PELVIS (Primary Dx) Social History Tobacco Use Types Packs/Day Years Used Date Smoking Tobacco: Never Assessed Sex and Gender Information Value Date Recorded Sex Assigned at Not on file Legal Sex Male 3:37 AM BOLT CUTTER Gender Identity Not on file Sexual Orientation Not on file documented as of this encounter Plan of Treatment Not on file documented as of this encounter Visit Diagnoses Diagnosis Localized osteoarthrosis not specified whether primary or secondary, pelvic region and thigh- Primary documented in this encounter Care Teams Supervisor Dehydrogenation Relationship Specialty Start Date End Date Kalani Guillaume MD [address] [place] [address] PCP - General Family Practice 12/31/16 documented as of this encounter
--- OUTSIDE RECORDS SUMMARY | 2025-04-03 08:36 | XMS_ITS | Encounter Summary ---
Author Organization [facility] Address [address] [place] [address] Care Team Providers Care Vocational Rehabilitation Administrator Name Role Phone Kalani Guillaume MD Primary Care Provider Encounter Details Date Type Department Care Team (Latest Contact Info) Description 11/19/2003 Outpatient Historical [facility] Orthopedics- 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
--- OUTSIDE RECORDS SUMMARY | 2025-04-03 08:36 | XMS_ITS | Encounter Summary ---
Author Organization [facility] Address [address] [place] [address] Care Team Providers Care Radio Equipment Repairer Name Role Phone Kalani Guillaume MD Primary Care Provider [phone] Encounter Details Date Type Department Care Team (Latest Contact Info) Description 07/09/2005 Outpatient Historical [facility] [address] [place] [address] Rain Murillo, POWER STATION OPERATOR [address] [place] [address] CORON ATHEROSCL PALA CORON VESSEL (Primary Dx); HYPERTENSION NOS; MIXED HYPERLIPIDEMIA Social History Tobacco Use Types Packs/Day Years Used Date Smoking Tobacco: Never Assessed Sex and Gender Information Value Date Recorded Sex Assigned at Not on file Legal Sex Male 3:37 AM REAL ESTATE LEASING MANAGER Gender Identity Not on file Sexual Orientation Not on file documented as of this encounter Plan of Treatment Not on file documented as of this encounter Visit Diagnoses Diagnosis Coronary atherosclerosis of [place] coronary artery- Primary Unspecified essential hypertension Mixed hyperlipidemia documented in this encounter Care Teams Radio Equipment Repairer Relationship Specialty Start Date End Date Kalani Guillaume MD [address] [place] [address] PCP - General Family Practice 12/31/16 documented as of this encounter
--- OUTSIDE RECORDS SUMMARY | 2025-04-03 08:36 | XMS_ITS | Encounter Summary ---
Author Organization [facility] Address [address] [place] [address] Care Team Providers Care Sales Compensation Analyst Name Role Phone Kalani Guillaume MD Primary Care Provider [phone] Encounter Details Date Type Department Care Team (Latest Contact Info) Description 02/19/2004 Outpatient Historical [facility] [address] [place] [phone] Bob Noel MD [address] [place] [address] CERVICALGIA (Primary Dx); Cervical spondylosis; BACKACHE NOS; Lumbosacral spondylosis Social History Tobacco Use Types Packs/Day Years Used Date Smoking Tobacco: Never Assessed Sex and Gender Information Value Date Recorded Sex Assigned at Not on file Legal Sex Male 3:37 AM MANAGER CASE MANAGEMENT Gender Identity Not on file Sexual Orientation Not on file documented as of this encounter Plan of Treatment Not on file documented as of this encounter Visit Diagnoses Diagnosis Cervicalgia- Primary Cervical spondylosis Cervical spondylosis without myelopathy Backache, unspecified 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
--- OUTSIDE RECORDS SUMMARY | 2025-04-03 08:36 | XMS_ITS | Encounter Summary ---
Author Organization [facility] Address [address] [place] [address] Care Team Providers Care Planning Specialist Name Role Phone Kalani Guillaume MD Primary Care Provider Encounter Details Date Type Department Care Team (Latest Contact Info) Description 04/01/2004 Outpatient Historical [facility] [address] [place] [phone] Bob Noel MD [address] [place] [address] CERVICALGIA (Primary Dx); BACKACHE NOS; Lumbosacral spondylosis; LUMB/LUMBOSAC DISC DEGEN Social History Tobacco Use Types Packs/Day Years Used Date Smoking Tobacco: Never Assessed Sex and Gender Information Value Date Recorded Sex Assigned at Not on file Legal Sex Male 3:37 AM SALES SOLUTIONS REPRESENTATIVE Gender Identity Not on file Sexual Orientation Not on file documented as of this encounter Plan of Treatment Not on file documented as of this encounter Visit Diagnoses Diagnosis Cervicalgia- Primary Backache, unspecified 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
--- OUTSIDE RECORDS SUMMARY | 2025-04-03 08:36 | XMS_ITS | Encounter Summary ---
Author Organization [facility] Address [address] [place] [address] Care Team Providers Care Soil Fertility Extension Specialist Name Role Phone Kalani Guillaume MD Primary Care Provider [phone] Encounter Details Date Type Department Care Team (Late st Contact Info) Description 04/17/[address] [facility] [address] [place] [address] Raymond Matias MD NO ADDRESS ON FILE Social History Tobacco Use Types Packs/Day Years Used Date Smoking Tobacco: Never Assessed Sex and Gender Information Value Date Recorded Sex Assigned at Not on file Legal Sex Male 3:37 AM OBSTETRICIAN/GYNECOLOGIST Gender Identity Not on file Sexual Orientation Not on file documented as of this encounter Plan of Treatment Not on file documented as of this encounter Procedures Procedure Name Priority Date/Time Associated Diagnosis Comments COMPREHENSIVE METABOLIC PANEL Stat 04/17/2008 3:58 PM OBSTETRICIAN/GYNECOLOGIST documented in this encounter Results * (ABNORMAL) COMPREHENSIVE METABOLIC PANEL (04/17/2008 3:58 PM OBSTETRICIAN/GYNECOLOGIST) ALBUMIN/GLOBULIN RATIO 1.7 1.0 - 2.3 [facility] TOTAL PROTEIN 6.9 6.3 - 8.2 g/dL [facility] SODIUM 141 136 - 145 mEq/L [facility] BILIRUBIN TOTAL 0.5 0.3 - 1.2 mg/dL [facility] BUN 25(H) 9 - 20 mg/dL [facility] CO2 26 22 - 32 mmol/l [facility] ANION GAP 12 9 - 20 mEq/L [facility] AST 46(H) 8 - 33 U/L [facility] POTASSIUM 4.8 3.5 - 5.0 mEq/L [facility] GLOBULIN (CALC) 2.6 2.4 - 3.9 g/dL [facility] ALBUMIN 4.3 3.5 - 5.0 g/dL [facility] CREATININE 1.5 0.7 - 1.5 mg/dL [facility] ALT 55(H) 4 - 36 IU/L [facility] CALCIUM 9.3 8.4 - 10.5 mg/dL [facility] OSMOLALITY, CALCULATED 296(H) 275 - 295 mOsm/Kg [facility] GLUCOSE 105 70 - 110 mg/dL [facility] ALKALINE PHOSPHATASE 69 25 - 100 U/L [facility] CHLORIDE 108 95 - 110 mEq/L [facility] Blood specimen (specimen) 04/17/2008 3:58 PM OBSTETRICIAN/GYNECOLOGIST 04/17/2008 4:36 PM OBSTETRICIAN/GYNECOLOGIST Raymond Matias MD CHEMISTRY ORDERABLES Final Result Performing Organization Address City/State/[facility] Co de Phone Number INTERFACE SYSTEM Refer to clinic/hospital department [facility] CLIA# [id number] [address] [place] [id number] documented in this encounter Visit Diagnoses Not on filedocumented in this encounter Care Teams Soil Fertility Extension Specialist Relationship Specialty Start Date End Date Kalani Guillaume MD [address] [place] [address] PCP - General Family Practice 12/31/16 documented as of this encounter
--- OUTSIDE RECORDS SUMMARY | 2025-04-03 08:36 | XMS_ITS | Encounter Summary ---
Author Organization [facility] Address [address] [place] [address] Care Team Providers Care Packing Machine Tender Name Role Phone Kalani Guillaume MD Primary Care Provider Encounter Details Date Type Department Care Team (Latest Contact Info) Description 12/06/2003 Outpatient Historical [facility]3] Orthopedics- 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
--- OUTSIDE RECORDS SUMMARY | 2025-04-03 08:36 | XMS_ITS | Encounter Summary ---
Author Organization [facility] Address [address] [place] [address] Care Team Providers Care Farmworkers Name Role Phone Kalani Guillaume MD Primary Care Provider Encounter Details Date Type Department Care Team (Latest Contact Info) Description 04/17/2008 Outpatient Historical [facility] Operating Room [address] [place] [phone] Raymond Matias MD NO ADDRESS ON FILE Unspecified Essential Hypertension; Coronary Atherosclerosis of [place] Coronary Artery; Esophageal Reflux; Hip Joint Replacement by Other Means; Postsurgical Percutaneous Transluminal Coronary Angioplasty Status; Personal History of Allergy to Analgesic Agent; Personal History of Allergy to Other Anti-Infective Agent Social History Tobacco Use Types Packs/Day Years Used Date Smoking Tobacco: Never Assessed Sex and Gender Information Value Date Recorded Sex Assigned at Not on file 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 Gender Identity Not on file Sexual Orientation Not on file documented as of this encounter Plan of Treatment Not on file documented as of this encounter Visit Diagnoses Diagnosis Unspecified essential hypertension Coronary atherosclerosis of [place] coronary artery Esophageal reflux Hip joint replacement by other means Postsurgical percutaneous transluminal coronary angioplasty status Personal history of allergy to analgesic agent Personal history of allergy to other anti-infective agent documented in this encounter Care Teams Farmworkers Relationship Specialty Start Date End Date Kalani Guillaume MD [address] [place] [address] PCP - General Family Practice 12/31/16 documented as of this encounter
--- OUTSIDE RECORDS SUMMARY | 2025-04-03 08:36 | XMS_ITS | Encounter Summary ---
Author Organization [facility] Address [address] [place] [address] Care Team Providers Care Rock Crusher Operator Name Role Phone Kalani Guillaume MD Primary Care Provider [phone] Encounter Details Date Type Department Care Team (Latest Contact Info) Description 08/02/2006 Outpatient Historical [facility] Cardiovascular Services [address] [place] [address] Roger Gimenez MD [address] [facility] [address] [place] [phone] Pain in Soft Tissues of Limb (Primary Dx) Social History Tobacco Use Types Packs/Day Years Used Date Smoking Tobacco: Never Assessed Sex and Gender Information Value Date Recorded Sex Assigned at Not on file 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
--- OUTSIDE RECORDS SUMMARY | 2025-04-03 08:36 | XMS_ITS | Encounter Summary ---
Author Organization [facility] Address [address] [place] [address] Care Team Providers Care Metal Buffer Name Role Phone Kalani Guillaume MD Primary Care Provider + [phone] Reason for Referral * Radiology Services (Routine) - Closed Specialty Diagnoses / Procedures Referred By Contac t Referred To Contact Radiology Diagnoses Stage 3b chronic kidney disease (CMS/HCC) Procedures US RENAL + DOPPLER US RETROPERITONEAL COMPLETE CHG US, RETROPERITNL ABD, LTD NE DUPLEX ABD/PEL VASC STUDY,LIMITD Darrell Bashir MD [facility] Ultrasound [address] 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 No / Unsure 08/06/2020 11:49 AM NATIONAL ACCOUNT DIRECTOR documented as of this encounter Plan of Treatment Not on file documented as of this encounter Results * US RENAL + DOPPLER (08/20/2020 1:17 PM NATIONAL ACCOUNT DIRECTOR) Anatomical Region Laterality Modality Abdomen Ultrasound 08/20/2020 1:17 PM NATIONAL ACCOUNT DIRECTOR Impressions 08/21/2020 11:27 AM NATIONAL ACCOUNT DIRECTOR IMPRESSION: Bilateral renal cortical thinning and bilateral renal cysts. Normal renal Doppler analysis. Narrative 08/21/2020 11:27 AM NATIONAL ACCOUNT DIRECTOR Exam: US RENAL + DOPPLER Date/Time of [...] (CMS/HCC) documented in this encounter Care Teams Metal Buffer Relationship Specialty Start Date End Date Kalani Guillaume MD [address] [place] [phone] PCP - General Family Practice 12/31/16 documented as of this encounter
--- OUTSIDE RECORDS SUMMARY | 2025-04-03 08:36 | XMS_ITS | Data Portability ---
Author Organization [facility] Mehul Kenny [facility], [facility] Address [address] [place] [address] Care Team Providers Care Isotope Technologist Name Role Phone KALANI SAUNDERS Primary Care Provider TONIA Lou OTHER [facility] OTHER VERNON BARBOZA OTHER [phone] FREDDIE GARNETT OTHER Assessment Encounter Date Assessment Date Assessment LastModified by Organization Details LastModified Time 03/14/2025 03/14/2025 Cardiovascular Conditions: - Continued cardiovascular monitoring and avoidance of NSAIDs. [email or web address] Not available 03/14/2025 16:43:01 Plan of Treatment Reminders Order Date Submit Date Provider Last Modified By Organization Details Last Modified Time Details Appointments None recorded. Lab CMP, serum or plasma 2024 025 [facility], [address] Miguel A, [facility] [[email or web address] [address], [place], [address], 15:38:33 lipid panel, blood 2024 025 [facility], [address] Miguel A, [facility] [[email or web address] [address], [place], [address], 15:38:30 Referral None recorded. Procedures None recorded. Surgeries None recorded. Imaging None recorded. Medication Orders albuterol sulfate HFA 90 mcg/actuati on aerosol inhaler [address] [facility], [address], [place], [address], 14:27:19 prednisone 20 mg tablet [address] [facility], [address], [place], [address], 14:03:44 Patient TargetsNo targets recorded. Patient Instructions Encounter Date Encounter Id Patient Instructions Last Modified By Organization Details Last Modified Time 03/14/2025 [id number] - Continue monitoring for changes in neurological status and seek medical help if symptoms worsen. - Use hydrocodone as instructed, being mindful of drowsiness and fall risk. - Avoid NSAIDs. - Follow up with neurology and scheduled appointments. - Report any signs of confusion or abnormal symptoms immediately. - Engage in safe mobility practices at home to prevent falls. [email or web address] Not available 03/14/2025 15:44:24 I discussed the challenges of the patient's recent intracerebral hemorrhage while hospitalized and the subsequent need to adjust medications, particularly Xarelto, and the effects on his chronic pain management. We reviewed the risks associated with continued hydrocodone use, particularly regarding drowsiness and fall risks, and discussed the ineffectiveness of heqd-yxw-fzkwuno options like Tylenol. NSAIDs are contraindicated due to cardiovascular risks. Emphasis was given to cautious hydrocodone re-introduction and scheduled follow-ups with neurology and pain management. The patient caregiver was informed about observing for any changes in mental status and when to seek immediate care. We acknowledged difficulties in scheduling and coordination with previous providers and clarified the journey ahead concerning appointments and medication management strategies. [email or web address] Not available 03/14/2025 15:44:24 Reason for Referral None Reported. Results Created Date Observation Date Name Description Value Unit Range Abnormal Flag Note LastModifiedBy Organization Detail LastModifiedTime 03/05/2003/05/2025 LIPID PROFI CELSO (MALE ) cholesterol 115.0 mg/dL 0.0-20 0.0 Not Available [facility] [address] [facility] [address], [place], [address], 03/05/2025 15:38:30 03/05/2003/0503/05/2025 LIPID PROFI LE (MALE ) trig 60.0 mg/dL 0.0-15 0.0 Not Available [facility] [address] [address], [place], [address], 03/05/2025 15:38:30 03/05/20 25 03/05/2025 LIPID PROFI LE (MALE ) HDL - direct 63.0 mg/dL >40.[address] [facility] [address] [address], [place], [address], 03/05/2025 15:38:30 03/05/20 25 03/05/2025 LIPID PROFI LE (MALE ) VLDL - direct 12.0 mg/dL Not Available [facility] [address] [address], [place], [address], 03/05/2025 15:38:30 03/05/20 25 03/05/2025 LIPID PROFI LE (MALE ) LDL - direct 40.0 mg/dL 0.0-13 0.0 Not Available [facility] [address] [address], [place], [address], 03/05/2025 15:38:30 03/05/20 25 03/05/2025 CMP (MALE ) glucose 120.0 mg/dL 60.0-9 9.0 high Not Available [facility] [address] [address], [place], [address], 03/05/2025 15:38:33 03/05/20 25 03/05/2025 CMP (MALE ) BUN (blood urea nitrogen) 24.0 mg/dL 10.0-2 6.0 Not Available [facility] [address] [address], [place], [address], 03/05/2025 15:38:33 03/05/20 25 03/05/2025 CMP (MALE ) creatinine (serum) 1.3 mg/dL 0.4-1. 5 Not Available [facility] [address], [place], [address], 03/05/2025 15:38:33 03/05/20 25 03/05/2025 CMP (MALE ) BUN/creatini ne ratio 18.46 ratio Not Available [facility] [address] [facility] [[email or web address] [address], [place], [address], 03/05/2025 15:38:33 03/05/20 25 03/05/2025 CMP (MALE ) eGFR calculated 56.2 Not Available [facility] [address] [facility] [[email or web address] [address], [place], [address], 03/05/2025 15:38:33 03/05/20 25 03/05/2025 CMP (MALE ) total protein 6.7 g/dL 6.0-8. 5 Not Available [facility] [address] [facility] [[email or web address]] [address], [place], [address], 03/05/2025 15:38:33 03/05/20 25 03/05/2025 CMP (MALE ) total bilirubin 0.7 mg/dL 0.2-1. 3 Not Available [facility] [address] [facility] [address] [[email or web address] 1, [place], [address], 03/05/2025 15:38:33 03/05/20 25 03/05/2025 CMP (MALE ) albumin 4.2 g/dL 3.5-5. 5 Not Available [facility] [address] [facility] [address] [[email or web address] [address], [place], [address], 03/05/2025 15:38:33 03/05/20 25 03/05/2025 CMP (MALE ) globulin 2.5 calc Not Available [facility] [address] [facility] [[email or web address]] [address], [place], [address], 03/05/2025 15:38:33 03/05/20 25 03/05/2025 CMP (MALE ) AST (SGOT) 43.0 U/L 0.0-46 .0 Not Available [facility] [address] [facility] [place], [address], 03/05/2025 15:38:33 03/05/20 25 03/05/2025 CMP (MALE ) altv (SGPT) 18.0 U/L 13.0-6 9.0 normal Not Available [facility] [address] [facility] [address], [place], [address], 03/05/2025 15:38:33 03/05/20 25 03/05/2025 CMP (MALE ) A/G ratio 1.7 ratio Not Available [facility] [address] [facility] [address], [place], [address], 03/05/2025 15:38:33 03/05/20 25 03/05/2025 CMP (MALE ) ALP phos 85.0 U/L 30.0-1 40.0 normal Not Available [facility] [address] [facility] [address], [place], [address], 03/05/2025 15:38:33 03/05/20 25 03/05/2025 CMP (MALE ) calcium 9.5 mg/dL 8.4-10 .5 Not Available [facility] [address] [facility] [address], [place], [address], 03/05/2025 15:38:33 03/05/20 25 03/05/2025 CMP (MALE ) sodium 139.0 mmol/ L 136.0- 145.0 Not Available [facility] [address] [facility] [address], [place], [address], 03/05/2025 15:38:33 03/05/20 25 03/05/2025 CMP (MALE ) potassium 4.0 mmol/ L 3.5-5. 1 Not Available [facility] [address] [facility] [address], [place], [address], 03/05/2025 15:38:33 03/05/20 25 03/05/2025 CMP (MALE ) chloride 106.0 mmol/ L 98.0-1 10.0 normal Not Available [facility] [address] [facility] [address], [place], [address], 03/05/2025 15:38:33 03/05/20 25 03/05/2025 CMP (MALE ) C02 24.0 mmol/ L 22.0-3 1.0 Not Available [facility] [address] [facility] [address], [place], [address], 03/05/2025 15:38:33 03/05/20 25 03/05/2025 CMP (MALE ) anion gap 9.0 calc Not Available [facility] [address] [facility] [address], [place], [address], 03/05/2025 15:38:33 03/05/20 25 03/05/2025 CMP (MALE ) osmolality 292.0 calc Not Available [facility] [address] [facility] [address], [place], [address], 03/05/2025 15:38:33 Result Notes None recorded. Problems Name Problem SNOMED Code Status Onset Date Resolution Date Notes Provider Name and Address Organization Details Recorded Time Unspecifi ed umbilical hernia Active 2006 Umbilical Herniorrh aphy; Date: 2006; 2 11:24AM by Renee Edward LPN, Office Visit; Promoted; acuity set as *; RENEE EDWARD [facility] 5 11:40:15 Atypical chest pain 144606859 Active 2021 Atypical Chest Pain; Normal Coronary Angiograp hy 1996, 2001.; 2 11:24AM by Renee Edward LPN, Office Visit; Promoted; acuity set as *; RENEE patel [facility] 5 11:39:10 Recurrent inguinal hernia 779098590408 8 Active 2021 R Inguinal Herniorrh aphy; 2 11:24AM by Renee Edward LPN, Office Visit; Promoted; acuity set as *; RENEE patel [facility] 5 11:40:09 Pneumonia 506514986 Active 2021 PNEUMONIA ; Recorded 2 11:24AM by Renee Edward LPN, Office Visit; Promoted; acuity set as *; RENEE patel [facility] 5 11:40:03 Urolithia sis 48696297 Active 2021 Urolithia sis; 2 11:24AM by Renee Edward LPN, Office Visit; Promoted; acuity set as *; RENEE patel [facility] 5 11:40:20 Benign hypertens ion 30394580 Active 2021 HTN; 2 11:24AM by Renee Edward LPN, Office Visit; Promoted; acuity set as *; RENEE patel [facility] 5 11:39:16 Heart disease 98720422 Active [address] [facility] 3 10:29:20 Gout 71554770 Active [address] [facility] 3 10:29:29 Asthma 786223555 Active [address] [facility] 3 10:29:56 Bronchiti s 51143265 [facility] 2022 [facility] 11:39:22 Candidias is of mouth 08996506 Active 2022 [facility] 5 11:39:32 Malignant neoplasm of skin 535879098 Active 2023 [facility] 4 14:39:42 Congestiv e heart failure 11525316 Active 2023 RENEE INDIRA EDWARD [facility] 5 11:39:51 Chronic atrial fibrillat ion 825707634 Active 2023 INDIRA EDWARD [facility] 5 11:39:41 Osteoarth ritis 181531036 Active 2023 RENEE INDIRA EDWARD [facility] 5 11:39:55 Chronic renal insuffici ency 326823351 Active 2023 RENEE JACOBSON EDWARD [facility] 5 11:39:46 Problem Notes None recorded. Procedures Surgical History Date Name Laterality Status Provider Name and Address Organization Details Recorded Time 2 colonoscopy completed [facility] 10/12/2022 14:36:35 Shoulder joint surgery completed [facility] 06/20/2024 11:07:17 Hip Replacement completed [facility] 06/20/2024 11:07:29 hernia repair completed [facility] 06/20/2024 11:07:43 Imaging Results None recorded. Procedure Notes None recorded. Medical Equipment None Reported. Allergies Allergen ID Allergen Name Allergen Category Reaction Reaction Severity Criticality Documentation Date Start Date Code Code System Note Provider Name and Address Organization Details Recorded Time 2368 morphine medicatio n rash Not available Not available 10/12/2022 7052 RxNorm [facility] 3 14:21:00 2369 Demerol medicatio n rash Not available Not available 10/12/2022 07130 1 RxNorm [facility] 3 14:21:09 2370 iodine medicatio n rash Not available Not available 10/12/2022 5933 RxNorm [facility] 3 14:21:23 92927 morphine sulfate medicatio n Not available Not available Not available 01/09/2023 53254 RxNorm Comme nt: Recor ded 06/01 11:24 AM by Renee mancera, [employer], Offic e Visit ; Promo chiki; Signi fican ce: *; ; Not Available [facility] 3 02:24:00 25672 iodine medicatio n Not available Not available Not available 01/09/2023 5933 RxNorm Comme nt: Recor ded 06/01 11:24 AM by Renee mancera, [employer], Offic e Visit ; Promo chiki; Signi fican ce: *; Reaso n: Drug aller gy; ; Not Available [facility] 3 02:24:00 Medications Name Sig Start Date [...] cough complete ly gone 2019 active LB/ls; 26029; Recorded 04/23/20 20 9:11AM by Rangel branham [...] 03/06 completed 0; Recorded 08/19/19 5:05PM by Hua Nash, Office Visit; Not Available Not Available Not Available levofloxa keiko 750 mg tablet TAKE 1 TABLET BY MOUTH ONCE DAILY 04/01 completed Not Available Not Available Not Available methylpre dnisolone 4 mg tablets in a dose pack as directed 03/06 completed Not Available Not Available Not Available albuterol sulfate HFA 90 mcg/actua tion aerosol inhaler INHALE 2 PUFFS BY MOUTH EVERY 4 HOURS active Not Available Not Available No t Available fluticaso ne propionat e 50 mcg/actua tion nasal spray,teodoro pension USE 1 SPRAY(S) IN EACH NOSTRIL ONCE DAILY active Not Available Not Available No t Available atenolol 50 mg tablet two times daily 04/01 completed 0; Recorded 08/19/19 22 3:31PM by Hua Nash, Office Visit; Not Available Not Available [...] completed 0; Recorded 08/19/19 22 3:31PM by Hua Nash, Office Visit; Not Available Not Available Not Available aspirin active Not Available Not Avail able Not Available Flonase at bedtime 04/01 completed 2 sprays to each nare at bedtime for maintena nce.; Recorded 06/10/20 10:00AM by Karla Kovacs RN, Office Visit; Refill Quantity : 1; Bottle; Not Available Not Available Not Available cranberry active Not Available Not Erica ilable Not Available garlic active Not Available Not Availa ble Not Available ipratropi um bromide four times daily, as needed 04/01 completed vo BP/dh; Recorded 06/10/20 10:00AM by Karla Kovacs RN, Office Visit; Refill Quantity : 50; Ampule; Not Available Not Available Not Available nitroglyc mark 04/01 completed 0; Recorded 08/19/19 22 5:03PM by Hua Nash, Office Visit; Not Available Not Available Not Available Prednison e (Judson) 04/01 completed 0; Recorded 08/19/19 22 5:03PM by Hua Nash, Office Visit; Not Available Not Available Not Available isosorbid e dinitrate 04/01 completed 0; Recorded 08/19/19 5:01PM by Hua Nash, Office Visit; Not Available Not Available Not Available iron active Not Available Not Availa ble Not Available furosemid e daily 04/01 completed 0; Recorded 08/19/19 22 3:31PM by Hua Nash, Office Visit; Not Available Not Available Not Available indometha keiko 04/01 completed 0; Recorded 08/19/19 22 5:00PM by Hua Nash, Office Visit; Not Available Not Available Not Available [place]-3 active 0; Recorded 08/19/19 22 5:03PM by Hua Nash, Office Visit; Not Available Not Available Not Available Vitamin D3 active 0; Recorded 08/19/19 5:06PM by Hua Nash, Office Visit; Not Available Not Available Not Available lansopraz ole active 0; Recorded 08/19/19 22 5:01PM by Hua Nash, Office Visit; Not Available Not Available Not Available gabapenti n 04/01 completed 0; Recorded 08/19/19 22 5:00PM by Hua Nash, Office Visit; Not Available Not Available Not Available clonazepa m 04/01 completed 0; Recorded 08/19/19 22 4:47PM by Hua Nash, Office Visit; Not Available Not Available Not Available cilostazo l 04/01 completed 0; Recorded 08/19/19 22 3:37PM by Hua Nash, Office Visit; Not Available Not Available Not Available Trazodone at bedtime 03/06 completed Recorded 04/13/20 1:19PM by Kalani Saunders MD, Office Visit; Refill Quantity : 30; Tablet; Not Available Not Available Not Available Multivita min w/Mineral s, Iron active 0; Recorded 08/19/19 5:02PM by Hua Nash, Office Visit; Not Available Not Available Not Available Elderberr y active 0; Recorded 08/19/19 4:57PM by Hua Nash, Office Visit; Not Available Not Available [...] mg tablet 03/06 completed 0; Recorded 08/19/19 5:06PM by Hua Nash, Office Visit; Not Available Not Available [...] Updated DateTime 5 175.26 cm 26 kg/m2 90794.2 6 g 97.7 [degF] 92 % 92 % 85 /min 102/60 mm[Hg] RENEE JACOBSON [facility] 5 11:06:05 Date Recorded Body height Body mass index (BMI) Body weight Body temperature Oxygen saturation Oxygen saturation in Arterial blood by Pulse oximetry Heart rate Systolic And Diastolic Provider Name and Address Organization Details Last Updated DateTime 5 175.26 cm 25.1 kg/m2 30378.7 g 97.3 [degF] 95 % 95 % 83 /min 128/70 mm[Hg] RENEE [facility] 5 11:34:53 Date Recorded Body height Body mass index (BMI) Body weight Body temperature Oxygen saturation Oxygen saturation in Arterial blood by Pulse oximetry Heart rate Systolic And Diastolic Provider Name and Address Organization Details Last Updated DateTime 5 175.26 cm 26.6 kg/m2 86288.6 3 g 98.2 [degF] 93 % 93 % 84 /min 120/70 mm[Hg] [facility] 5 14:01:41 Date Recorded Body height Body mass index (BMI) Body weight Body temperature Oxygen saturation Oxygen saturation in Arterial blood by Pulse oximetry Heart rate Systolic And Diastolic Provider Name and Address Organization Details Last Updated DateTime 5 175.26 cm 26.6 kg/m2 99305.6 3 g 97.2 [degF] 99 % 99 % 92 /min 128/60 mm[Hg] RENEE [facility] 5 14:53:49 Date Recorded Body height Body mass index (BMI) Body weight Body temperature Oxygen saturation Oxygen saturation in Arterial blood by Pulse oximetry Heart rate Systolic And Diastolic Provider Name and Address Organization Details Last Updated DateTime 4 175.26 cm 25.1 kg/m2 12562.7 g 97.1 [degF] 96 % 96 % 83 /min 140/80 mm[Hg] HAILY OLVERA [facility] 4 13:50:58 Social History None recorded. Functional Status Question Answer Note LastModified by Organizat ion Details LastModified Time What is your level of alcohol consumption? Occasional [email or web address] Information not available 10/12/2022 Mental Status None recorded. Family History Relationship Description Onset Age of this Age Resolved Age Notes LastModified by Organization Details LastModified Time Father Hypertensive disorder mom, sister , brothe r [email or web address] Not available 04/01/2023 10:31:08 Father Heart disease mom and siblin gs [email or web address] Not available 04/01/2023 10:31:23 Medical History Condition Response Coronary Artery Disease N Gout Y Other N Blood Diseases N Kidney Stones N Hyperthyroidism N Blood Transfusion N Breast Cancer N COPD Y Lung Disease N Hypothyroidism N Depression N Defects or Inherited Disease N Developmental or Behavioral Disorders N Breast Problem N Difficulty Swallowing N Anesthesia Complications N Meniere's disease N Anxiety Disorder N Muscle, Joint, or Bone Problems Y Vision or Eye Problems N Arthritis Y Polyps N Infertility N Cancer N Varicosities N Stroke N Endometriosis N Bladder or Kidney Problems Y High Cholesterol Y Liver Disease N Headaches N Fibromyalgia N Kidney Disease Y Allergies/Hayfever N Heart [...] N Heart Disease N Pulmonary Embolism N Pre-Eclampsia N Hypertension Y Chronic Ear Infections N Osteoporosis N Chicken Pox N Autism Spectrum Disorder (ASD) N Thrombophilias N Immunizations Vaccine Type Date Status Note Provider Nam e and Address Organization Details Recorded Time Influenza, split virus, trivalent, preservative 7 completed Not Available [facility] 01/09/2023 02:32:20 Influenza, split virus, trivalent, preservative 6 completed Not Available [facility] 01/09/2023 02:32:20 Past Encounters Encounter ID Performer Location Encounter Start Date Encounter Closed Date Diagnosis/Indication Diagnosis SNOMED-CT Code Diagnosis ICD10 Code Diagnosis IMO Codes Diagnosis Note [id number] Kalani Saunders MD [facility]) [address] [place] [address] 10/12/2022 13:59:25 10/15/2022 15:27:39 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 It seemed he was really complainin g of it so I recommende d ENT and hearing testing but then they say it has been >20 years. Iron defic iency anemia 56875977 D50.9 will recheck iron labs today since he has not been taking any iron. start iron supplement . needs repeat lab in 3 months on the iron Essential hypertension 88573233 I10 needs full labs in 6 months Pain of ear 658958227 H9 2.09 change from amairani to zyrtec. does nasal spray History of gout 45710274 4 Z87.39 [id number] NOMAN ANGELO NP [facility] ([facility]) [address] [place] [address] 12/26/2022 12:38:45 12/26/2022 14:25:05 Bee sting 663860050 T63.91XA Discussed use steroid cream as prescribed [...] understand ing of plan. Tear of skin 433562849 T 14.8XXA Discussed to wash the laceration [...] concerns.P atient verbalized understand ing of plan. [id number] Kalani Saunders MD [facility] ([facility]) [address] [place] [phone] 04/01/2023 10:18:50 04/01/2023 11:21:54 Cough 22680715 R05.9 [id number] Cole Rodriguez MD [facility] ([facility]) [address] [place] [phone] 04/09/2023 08:35:41 04/09/2023 18:17:36 Bronchitis 87058722 J40 Patient's had some improvemen t with prednisone . We will continue with prednisone for a few days and start antibiotic s. Patient was encouraged to continue to use his inhalers [id number] Cole Rodriguez MD [facility] ([facility]) [address] [place] [phone] 04/15/2023 09:53:07 04/15/2023 18:34:10 Candidiasis of mouth 71470781 B37.0 Likely thrush based on exam. Likely secondary to not rinsing mouth after using steroid inhaler. Start antifungal s. Consider oral fluconazol e if symptoms do not improve. Recommend follow-up with PCP next week Bronchitis 42492453 J40 Continued wheezing is likely secondary to the fact that he has been using his Symbicort for the last 3 days. Was encouraged to rinse out mouth after using Symbicort every time. [id number] Kalani Saunders MD [facility] ([facility]) [address] [place] [phone] 04/19/2023 15:10:20 04/19/2023 17:55:55 Candidiasis of mouth 23593369 B37.0 they will get the nystatin and treat the mouth, then hopefully he can use the symbicort after his mouth is treated. Chronic bronchitis 42056 004 J42 will get CXR. likely needs a chronic inhaled steroid - hopefully he can resume one after his mouth is treated. [id number] CHANTELLE MAURO [facility] ([facility]) [address] [place] [phone] 05/01/2023 14:57:40 05/01/2023 16:50:32 Acute exacerbation of chronic obstructive pulmonary disease 569180834 J44.1 Will start Z-pack today. Encouraged to continue inhalers at home and to make an appointmen t with his pulmonolog ist as he continues to have exacerbati ons. Recommend a follow up with PCP in 2 weeks. If chest pain or severe SOB occurs, should go to ED. Patient verbalizes understand ing. [id number] Kalani Saunders MD [facility] ([facility]) [address] [place] [phone] 05/18/2023 11:14:21 05/18/2023 15:13:34 Cough 26248536 R05.9 Acute exac erbation of chronic bronchitis 684356949 J44.[address] Sue the , does a pulmonary test then. 05/18/23 Congestive heart failure 80923018 I50.9 sees cardio. pacemaker. elevated BNP at the ER. Wednesday next week go to [facility] for echo.. will check. his BNP in the ER was 12,000. they incresed his lasix back to 40mg. I suspect we will need to keep him there until he sees cardio. I suspect the sob is heart related. he says it is worse at night when he lays down. Bilateral lower leg edema [id number] R60.0 still on 40 lasix for 2 more days. Orthopnea 95935202 R06.0 1 [id number] Kalani Saunders MD [facility] ([facility]) [address] [place] [address] [phone] 5 05/26/2023 09:19:21 05/26/2023 12:06:44 Pneumonia 030246856 J18.9 per cxr. finishing course of augmentin. Congestive heart failure 59136238 I50.9 sees cardio. pacemaker. elevated BNP at the ER. Wednesday next week go to [facility] for echo.. will check. his BNP in [...] therapy. 05/26/23 Chronic ob structive pulmonary disease 77100531 J44.9 sees pulm. [id number] CHANTELLE MAURO [facility] ([facility]) [address] [place] [address] [phone] 5 06/16/2023 11:57:03 06/16/2023 15:48:56 Dyspnea 952278569 R06.00 Will check CBC, CMP, BNP, chest x-ray, and EKG today. Discussed with patient that SOB is likely associated with his CHF due to worsening CHF symptoms. Discussed importance of following up with cardiologi st within the next week. If chest pain returns or SOB worsens, need to go to ED. Patient and verbalized understand ing. Congestive heart failure 55369793 I50.9 Will increase Lasix from 40mg daily [...] Patient is currently taking OTC potassium. Anemia 332962029 D64.9 Recommend a follow up with PCP. This has been an ongoing issue and labs are similar to previous labs. No critical anemia present today. Irregular heart beat 361 232466 R00.8 EKG was abnormal. Consulted with Dr. Saunders, patients PCP. Due to pacemaker present and no previous EKGs to compare, unable to successful ly interpret EKG today, as it is unclear if abnormalit ies are old or new. Discussed again with patient the importance of returning to ED if chest pain returns or SOB worsens. Patient and significan t other verbalized understand ing. [id number] Kalani Saunders MD [facility] ([facility]) [address] [place] [address] [phone] 5 06/22/2023 09:43:42 06/22/2023 11:25:25 Congestive heart failure 87558473 I50.9 Pt presented with increase SOB to walk-in clinic 06/16/23. BNP was ordered but unfortunat avinash did not get done. Pts lasix was increased from 40 daily to 40mg BID.he is symptomati edwige improved today. no LE edema. check bmp today and supplement potassium. call was made to his cardiologi st to inform them of the changes. 06/22/23. Gout 10203053 M10.9 likely causing his joint pain since nephro stopped his indomethac in and his uric acid was elevated at the time. only on 300mg allopurino l. will recechk uric acid today and try steroid pack. once uric acid wnl then may cont allopurino l for control. Chronic ob structive pulmonary disease 80573233 J44.9 sees pulm. his recent PFT was not very impressive . this indicated his CHF as his main cause of sob. cardio was notified. [id number] Kalani Saunders MD [facility] ([facility]) [address] [place] [address] [phone] 5 09/06/2023 13:36:06 09/06/2023 17:29:22 Dyspnea 045065004 R06.00 chronic. Pain of ear 900005197 H9 2.09 chronic. 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 09.05.24 Anemia 262813055 D64.9 they decline colonoscop y. I discussed the possibilit y of losing microscopi c blood in the stool. they still decline at this time. 09/06/23 Congestive heart failure 50030115 I50.9 cardio. 09/06/23 Osteoarthritis 960513741 M19.90 pr only takes 1-2 times a month for severe pain. nephrology took him off due to renal function, but I think using only 1-2 times a month is acceptable since it works so well. 09/06/23. [id number] Kalani Saunders MD [facility] ([facility]) [address] [place] [address] [phone] 5 03/07/2024 12:48:19 03/07/2024 12:56:36 Benign hypertension 51091237 I10 Blood pressure controlled 03/06/2024 Dysuria 67333472 R30.0 Urine dip was unremarkab le. I believe his issues may be related to worsening benign prostatic hypertroph y. Congestive heart failure 01602580 I50.9 cardio* Chronic ob structive pulmonary disease 41605587 J44.9 was seeing pulm* Osteoarthritis 803687334 M19.90 pr only takes 1-2 times a month for severe pain. nephrology took him off due to renal function, but I think using only 1-2 times a month is acceptable since it works so well. 09/06/23. stable. Having more knee pain but they do not believe he is a surgical candidate. 03/06/2024 Lower urin madhu tract symptoms due to benign prostatic hypertrophy 2174045829 9101 N40.1 We will increase his tamsulosin from 0.4 mg daily to 0.8 mg daily. urology referral. 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 They have been working on his ear 03/06/2024 [id number] Kalani Saunders MD [facility] ([facility]) [address] [place] [address] [phone] 5 05/29/2024 13:36:38 05/29/2024 14:39:31 Benign hypertension 06424785 I10 Blood pressure controlled 03/06/2024 Congestive heart failure 38369170 I50.9 cardio* Chronic at rial fibrillation 095862438 I48.20 With chronic anticoagul ation per cardio* Osteoarthritis 108087217 M19.90 pr only takes 1-2 times a [...] vascular surgeon... ..seeing one they like at [facility].... .they know his kidneys are bad so they will do blood work and then the CT scan. 05/29/24Dr Ernesto Saunders still giving him the symbicort and nose spray. Chronic re nal insufficiency 916319017 N18.9 Sees nephrology * Peripheral vascular disease 596124619 I73.9 evaluated 05/24/24 for bilateral knee replacemen t. Chronic ob structive pulmonary disease 01681246 J44.9 was seeing pulm* but left cont same med: symbicort, albuterol and flonase... they will cont the meds through me. he usually just takes it once a day...he forgets to take it twice. does not need refills today but will get refills from us. 05/29/24 [id number] Kalani Saunders MD [facility] ([facility]) [address] [place] [address] [phone] 5 06/20/2024 10:51:41 06/20/2024 13:36:14 Upper respiratory infection 00260041 J06.9 Started 2 days ago. Pt. states his chest feels heavy. 06/20/24 Acute exac erbation of chronic obstructive pulmonary disease 042250376 J44.1 no edema, no crackles. [id number] Kalani Saunders MD [facility] ([facility]) [address] [place] [address] [phone] 5 10/09/2024 10:53:23 10/17/2024 14:45:40 Ecchymosis 649373711 R58 15996 This appears to be a rather large bruise to me. It seems superficia l on the skin. I reassured them I do not think that this is the beginning of necrosis and loss of limb. However they are aware that he is very poor vasculatur e in his legs. Follow-up in 1 week to recheck healing process. [id number] Kalani Saunders MD [facility] ([facility]) [address] [place] [address] [phone] 5 03/05/2025 13:38:53 03/13/2025 11:17:20 Chronic kidney disease stage 3B 125549299 N18.32 5347729727 per nephrology .* Peripheral vascular disease 528270708 I73.9 25413 evaluated 05/24/24 for bilateral knee replacemen t. Chronic ob structive pulmonary disease 43139012 J44.9 was seeing pulm* but left cont same med: symbicort, albuterol and flonase... they will cont the meds through me. he usually just takes it once a day...he forgets to take it twice. does not need refills today but will get refills from us. 05/29/24 Refill alb requested. 03/05/25 Longstandi ng persistent atrial fibrillation 880484630 I48.11 86024992 cardio* Chronic co ngestive heart failure 93465018 I50.9 3972149748 cardio* Essential hypertension 27104082 I10 26625 120/70 today, controlled . 03/05/25 Mixed hyperlipidemia 267 252528 E78.2 35610 cardio* nonfasting labs today. History of gout 62135828 4 Z87.39 3994598 Generalize d osteoarthritis 695963150 M15.9 1453 ? RA? we do not have records from Rheum, pt and are unsure what his dx is for the sulfasalas ine and prednisone ..... Rheum*. Benign pro static hyperplasia without outflow obstruction 009477686 N40.0 6945591 Urology* . Adenocarci noma of sigmoid colon 022472571 C18.7 1310886 Oncology* they wanted to do CT scan, but he cannot have contrast due to kidneys... .they decided just to cancel the CT scan. [id number] Kalani Saunders MD [facility] ([facility]) [address] [place] [address] [phone] 5 03/14/2025 14:47:56 03/19/2025 15:13:52 Seen in hospital outpatient department 751711169 Z76.89 40956530 Chronic pain syndrome 37 2935825 G89.4 93873 Pt advised he may restart his pain med - he has been on them chronicall y and it is probably worse to d/c them cold turkey. Since he is on chronicall y he is not at much increased fall risk. 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 240795555 S06.5XAA 17397 f/u Health Concerns Section Related Observation LastModified by Organization Detai ls LastModified Time None Recorded Concern Status LastModified by Organization Details LastModified Time None Recorded Advance Directives Directive None Recorded Payers Insurance Date Sequence Insurance Name Policy Number Policy Koenig Covered Member ID Koenig Member ID Guarantor Name 03/14/2025 1 [employer] (MEDICARE REPLACEMENT/A DVANTAGE - PPO) Juan M Sierra [id number] Juan M Sierra Notes Date Note Type Note Provider Name and Address Organization Details Recorded Time 05/29/2024 text/html 3 month f/u - getting the pulm meds from us since left. does good when he remembers tot grace them twice a day. I am in a lot of pain today.I saw a vascular surgeon in [place], I am also going to see the day after Ethel they are going to do a CT scan with contrast. in [facility] with [facility] just said they wanted to do blood work a BMP.... Kalani Saunders MD [address] [place] [address], [phone], [facility] 05/29/2024 14:34:36 06/20/2024 text/html Upper Respirator y SymptomsReported by PatientUpper Respiratory SymptomsFor quality, patient reportscongested,dry cough, andnasal discharge. For associated symptoms, patient reportschest pain,shortness of breath,difficulty breathing at night,fatigue, andnauseabut reportsno fever. For location, patient reportsheadandchest.RO S as noted in the HPI been about 3 daysjust feels like bronchitis or head coldchest is hurtingsob...cough Kalani Saunders MD [address] [place] [address], [phone], [facility] 06/20/2024 11:26:06 10/09/2024 text/html ROS as noted in the HPI He has no history of trauma or falls. They do not know where the bruising would come from. Kalani Saunders MD [address] [place] [address], [phone], [facility] 10/17/2024 13:43:52 03/05/2025 text/html Annual WellnessReported by PatientSocial/Behavior al HistoryFor physical activity, patient reportsdoes not exercise on a regular basisanddecreased physical activity. For additional lifestyle factors, patient reportsno tobacco use.ROS as noted in the HPI he last did blood work when he went to see Janett Bridges/Oncology.He and his believe that the specialists do routine blood work that should cover most everything. Kalani Saunders MD [address] [place] [address], [phone], [facility] 03/11/2025 14:08:13 03/14/2025 text/html Fall UCReported by PatientHPIFor associated symptoms, patient reportsheadache,poor balance, andvisual disturbance/loss bilateralbut reportsno memory loss. For location of injury, patient reportshead. For severity of pain, patient reportssevere. For context, patient reportsreports hitting head.ROS as noted in the HPI The patient is an 84-year-old male presenting with medication management concerns post-hospitalization for intracerebral hemorrhage. During his admission, Xarelto was ceased to mitigate bleeding risks. Chronic leg and knee pain, previously controlled with hydrocodone, remains troublesome as the medication was discontinued. Worries about potential disorientation and the complexity of pain management due to contraindicated NSAIDs are notable. Hydrocodone intake varied, with a lower frequency at home compared to the hospital. The pain impacts nocturnal rest, causing significant discomfort. Imaging during follow-up revealed stability post-hemorrhage intervention. - Kalani Saunders MD [address] [place] [address], [phone], [facility] 03/14/2025 16:52:52
--- OUTSIDE RECORDS SUMMARY | 2025-04-03 08:36 | XMS_ITS | Encounter Summary ---
Author Organization [facility] Address [address] [place] [address] Care Team Providers Care Flocculator Operator Name Role Phone Kalani Guillaume MD Primary Care Provider Encounter Details Date Type Department Care Team (Latest Contact Info) Description 02/19/2004 Outpatient [facility] [address] [phone] Bob Noel MD [address] [place] [address] LUMBOSACRAL SPONDYLOSIS (Primary Dx) Social History Tobacco Use Types Packs/Day Years Used Date Smoking Tobacco: Never Assessed Sex and Gender Information Value Date Recorded Sex Assigned at Not on file 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
--- OUTSIDE RECORDS SUMMARY | 2025-04-03 08:36 | XMS_ITS | Encounter Summary ---
Author Organization [facility] Address [address] [place] [address] Care Team Providers Care Sales Exhibitor Name Role Phone Kalani Guillaume MD Primary Care Provider [phone] Encounter Details Date Type Department Care Team (Latest Contact Info) Description 05/26/2005 Inpatient Historical [facility] German Professor [address] [place] [address] Roger Gimenez MD [address] [facility] [address] [place] [address] CORON ATHEROSCL CACHIL DEHE CORON VESSEL (Primary Dx) Social History Tobacco Use Types Packs/Day Years Used Date Smoking Tobacco: Never Assessed Sex and Gender Information Value Date Recorded Sex Assigned at Not on file 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 Gender Identity Not on file Sexual Orientation Not on file documented as of this encounter Plan of Treatment Not on file documented as of this encounter Procedures Procedure Name Priority Date/Time Associated Diagnosis Comments POC ACTIVATED CLOTTING TIME Routine 05/27/2005 2:36 PM DOOR CLAMPER POC ACTIVATED CLOTTING TIME Routine 05/27/2005 1:39 PM DOOR CLAMPER BASIC METABOLIC PANEL Routine 05/27/2005 6:14 AM DOOR CLAMPER PT AND APTT Routine 05/26/2005 8:49 AM DOOR CLAMPER CBC WITHOUT DIFFERENTIAL Routine 05/26/2005 8:49 AM DOOR CLAMPER BASIC METABOLIC PANEL Routine 05/26/2005 8:49 AM DOOR CLAMPER documented in this encounter Results * (ABNORMAL) POC ACTIVATED CLOTTING TIME (05/27/2005 2:36 PM DOOR CLAMPER) [facility] ACT POC 165(H) 79 - 149 sec INTERFACE SYSTEM 05/27/2005 2:36 PM DOOR CLAMPER Roger Gimenez MD POINT OF CARE TESTING Final R esult Performing Organization Address [facility] Phone Number INTERFACE SYSTEM Refer to clinic/hospital department * (ABNORMAL) POC ACTIVATED CLOTTING TIME (05/27/2005 1:39 PM DOOR CLAMPER) [facility] ACT POC 178(H) 79 - 149 sec INTERFACE SYSTEM 05/27/2005 1:39 PM DOOR CLAMPER us Roger Gimenez MD POINT OF CARE TESTING Final R esult Performing Organization Address [facility] Phone Number INTERFACE SYSTEM Refer to clinic/hospital department * (ABNORMAL) BASIC METABOLIC PANEL (05/27/2005 6:14 AM DOOR CLAMPER) Pathologist [facility] GLUCOSE 124(H) 70 - 110 mg/dL INTERFACE [...] 10.5 mg/dL INTERFACE SYSTEM 05/27/2005 6:14 AM DOOR CLAMPER us Roger Gimenez MD CHEMISTRY ORDERABLES Final Re sult Performing Organization Address [facility] Phone Number INTERFACE SYSTEM Refer to clinic/hospital department * PT AND APTT (05/26/2005 8:49 AM DOOR CLAMPER) Pathologist [facility] PROTIME 13.0 12.6 - 14.9 Secs INTERFACE SYSTEM Comment: As of 05 note change in normal range. INR 0.9 INTERFACE SYSTEM Comment: Expected Values for INR: DVT/PE Goal INR 2.5; range 2.0 - 3.0 Valve Replacement Tissue Goal INR 2.5; range 2.0 - 3.0 Mechanical Goal INR 3.0; range 2.5 - 3.5 POST-CA Goal INR 2.5; range 2.0 - 3.0 or Goal 3.0; range 2.5 - 3.5 Atrial Fibrillation Goal INR 2.5; range 2.0 - 3.0 Ischemic Stroke Goal INR 2.5; range 2.0 - 3.0 For additional information see Guidelines for Anticoagulation available from the pharmacy Manisha Tran PTT 27.9 24.3 - 37.5 Secs INTERFACE SYSTEM Comment:Therapeutic Range: 05/26/2005 8:49 AM DOOR CLAMPER Roger Gimenez MD HEMATOLOGY ORDERABLES Final R esult INTERFACE SYSTEM Refer to clinic/hospital department * (ABNORMAL) CBC WITHOUT DIFFERENTIAL (05/26/2005 8:49 AM DOOR CLAMPER) Pathologist [facility] WBC 3.3(L) 4.8 - 10.8 K/ul INTERFACE [...] 0.2 K/ul INTERFACE SYSTEM 05/26/2005 8:49 AM DOOR CLAMPER Roger Gimenez MD HEMATOLOGY ORDERABLES Final R esult Performing Organization Address [facility] Phone Number INTERFACE SYSTEM Refer to clinic/hospital department * (ABNORMAL) BASIC METABOLIC PANEL (05/26/2005 8:49 AM DOOR CLAMPER) GLUCOSE 133(H) 70 - 110 mg/dL INTERFACE [...] 10.5 mg/dL INTERFACE SYSTEM 05/26/2005 8:49 AM DOOR CLAMPER Roger Gimenez MD CHEMISTRY ORDERABLES Final Re sult Performing Organization Address [facility] Phone Number INTERFACE SYSTEM Refer to clinic/hospital department documented in this encounter Visit Diagnoses Diagnosis Coronary atherosclerosis of [place] coronary artery- Primary documented in this encounter Care Teams Sales Exhibitor Relationship Specialty Start Date End Date Kalani Guillaume MD [address] [place] [phone] PCP - General Family Practice 12/31/16 documented as of this encounter
--- OUTSIDE RECORDS SUMMARY | 2025-04-03 08:36 | XMS_ITS | Encounter Summary ---
Author Organization [facility] Address [address] [place] [address] Care Team Providers Care Night Coordinator Name Role Phone Kalani Guillaume MD Primary Care Provider [phone] Encounter Details Date Type Department Care Team (Latest Contact Info) Description 05/31/2003 Outpatient Historical [facility] 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
--- OUTSIDE RECORDS SUMMARY | 2025-04-03 08:36 | XMS_ITS | Encounter Summary ---
Author Organization [facility] Address [address] [place] [address] Care Team Providers Care Retort Unloader Name Role Phone Kalani Guillaume MD Primary Care Provider [phone] Encounter Details Date Type Department Care Team (Latest Contact Info) Description 06/19/2003 [facility] [place] [address] [place] [address] Jace Lilly MD [address] [place] [phone] PREOP CARDIOVASC EXAM (Primary Dx) Social History Tobacco Use Types Packs/Day Years Used Date Smoking Tobacco: Never Assessed Sex and Gender Information Value Date Recorded Sex Assigned at Not on file 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
--- OUTSIDE RECORDS SUMMARY | 2025-04-03 08:36 | XMS_ITS | Encounter Summary ---
Author Organization [facility] Address [address] [place] [address] Care Team Providers Care Well Shooter Name Role Phone Kalani Guillaume MD Primary Care Provider Encounter Details Date Type Department Care Team (Latest Contact Info) Description 03/06/2004 Outpatient Historical [facility] [address] 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
--- OUTSIDE RECORDS SUMMARY | 2025-04-03 08:36 | XMS_ITS | Encounter Summary ---
Author Organization [facility] Address [address] [place] [address] Care Team Providers Care Granite Sandblaster Apprentice Name Role Phone Kalani Guillaume MD Primary Care Provider [phone] Encounter Details Date Type Department Care Team (Late st Contact Info) Description 03/08/2008 Outpatient Historical HIS IN BED Sj Ed, Physician NO ADDRESS ON FILE Sonido Galvan MD NO ADDRESS ON FILE Roger Gimenez MD [address] [facility] [address] [place] [address] Social History Tobacco Use Types Packs/Day Years Used Date Smoking Tobacco: Never Assessed Sex and Gender Information Value Date Recorded Sex Assigned at Not on file Legal Sex Male 3:37 AM DIRECTOR ADULT Gender Identity Not on file Sexual Orientation [...] CDT) PTT 93.2(H) 22.5 - 36.5 Secs [facility] Comment: Therapeutic Range: Hi-level PE/DVT [...] esult INTERFACE SYSTEM Refer to clinic/hospital department [facility] CLIA# [id number] [address] [place] [address] * (ABNORMAL) CBC WITH DIFFERENTIAL (03/09/2008 4:30 AM CDT) EOSINOPHIL ABSOLUTE 0.1 0.0 - 0.7 K/ul [facility] EOSINOPHILS 3.0 0.0 - 7.0 % [facility] RBC 4.17(L) 4.60 - 6.20 Mil/ul [facility] MCHC 33.3 30.0 - 35.0 g/dL [facility] LYMPHOCYTE ABSOLUTE 1.2 1.2 - 4.0 K/ul [facility] LYMPHOCYTES 24.4 24.0 - 44.0 % [facility] MCV 99.3 84.0 - 103.0 Fl [facility] BASOPHILS 0.4 0.0 - 1.0 % [facility] MPV 10.0 8.9 - 12.8 Fl [facility] BASOPHILS ABSOLUTE 0.0 0.0 - 0.2 K/ul [facility] HEMOGLOBIN 13.8(L) 14.0 - 18.0 g/dL [facility] MONOCYTES 7.2 2.0 - 10.0 % [facility] RDW 13.0 11.0 - 14.5 % [facility] MONOCYTE ABSOLUTE 0.3 0.1 - 0.6 K/ul [facility] WBC 4.7(L) 4.8 - 10.8 K/ul [facility] NEUTROPHILS 65.0 42.2 - 75.2 % [facility] MCH 33.1 27.0 - 34.0 pg [facility] NEUTROPHIL ABSOLUTE 3.1 2.0 - 8.0 K/ul [facility] HEMATOCRIT 41.4 41.0 - 53.0 % [facility] PLATELETS 146 140 - 440 K/ul [facility] Blood specimen (specimen) 03/09/2008 4:30 AM CDT 03/09/2008 4:48 AM CDT Roger Gimenez MD HEMATOLOGY ORDERABLES Final R esult INTERFACE SYSTEM Refer to clinic/hospital department [facility] CLIA# [id number] [address] [place] [address] * (ABNORMAL) PTT (03/09/2008 12:01 AM CDT) PTT 90.9(H) 22.5 - 36.5 Secs [facility] Comment: Therapeutic Range: Hi-level PE/DVT [...] ORDERABLES Final R esult Performing Organization Address [facility] de Phone Number INTERFACE SYSTEM Refer to clinic/hospital department [facility] CLIA# [id number] [address] [place] [address] * CARDIAC ENZYMES (03/08/2008 8:33 PM CDT) CKMB 0.5 0.0 - 5.0 ng/mL [facility] TROPONIN I <0.1 0.0 - 1.3 ng/mL [facility] Blood specimen (specimen) 03/08/2008 8:33 PM CDT 03/08/2008 8:51 PM CDT Sonido Galvan MD CHEMISTRY ORDERABLES Siobhan l Result Performing Organization Address [facility] de Phone Number INTERFACE SYSTEM Refer to clinic/hospital department [facility] CLIA# [id number] [address] [place] [address] * CARDIAC ENZYMES (03/08/2008 2:20 PM CDT) TROPONIN I <0.1 0.0 - 1.3 ng/mL [facility] CKMB 0.7 0.0 - 5.0 ng/mL [facility] Blood specimen (specimen) 03/08/2008 2:20 PM CDT 03/08/2008 2:45 PM CDT Sonido Galvan MD CHEMISTRY ORDERABLES Siobhan l Result Performing Organization Address [facility] Phone Number INTERFACE SYSTEM Refer to clinic/hospital department [facility] CLIA# [id number] [address] [place] [address] * (ABNORMAL) PTT (03/08/2008 2:20 PM CDT) PTT 128.2(H) 22.5 - 36.5 Secs [facility] Comment: Therapeutic Range: Hi-level PE/DVT [...] ORDERABLES Final R esult Performing Organization Address [facility] Phone Number INTERFACE SYSTEM Refer to clinic/hospital department [facility] CLIA# [id number] [facility] [place] [address] * (ABNORMAL) BASIC METABOLIC PANEL (03/08/2008 8:14 AM CDT) SODIUM 138 136 - 145 mEq/L [facility] CREATININE 1.3 0.7 - 1.5 mg/dL [facility] ANION GAP 14 9 - 20 mEq/L [facility] BUN 20 9 - 20 mg/dL [facility] CO2 25 22 - 32 mmol/l [facility] GLUCOSE 111(H) 70 - 110 mg/dL [facility] CHLORIDE 103 95 - 110 mEq/L [facility] OSMOLALITY, CALCULATED 288 275 - 295 mOsm/Kg [facility] POTASSIUM 4.3 3.5 - 5.0 mEq/L [facility] CALCIUM 9.3 8.4 - 10.5 mg/dL [facility] Blood specimen (specimen) 03/08/2008 8:14 AM CDT 03/08/2008 8:14 AM CDT Sonido Galvan MD CHEMISTRY ORDERABLES Siobhan antunez Result INTERFACE SYSTEM Refer to clinic/hospital department [facility] CLIA# [id number] [address] [place] [address] * (ABNORMAL) CBC WITH DIFFERENTIAL (03/08/2008 8:14 AM CDT) EOSINOPHIL ABSOLUTE 0.1 0.0 - 0.7 K/ul [facility] EOSINOPHILS 2.1 0.0 - 7.0 % [facility] RBC 4.21(L) 4.60 - 6.20 Mil/ul [facility] MCHC 34.5 30.0 - 35.0 g/dL [facility] LYMPHOCYTE ABSOLUTE 0.9(L) 1.2 - 4.0 K/ul [facility] LYMPHOCYTES 18.3(L) 24.0 - 44.0 % [facility] MCV 97.1 84.0 - 103.0 Fl [facility] BASOPHILS 0.4 0.0 - 1.0 % [facility] MPV 9.4 8.9 - 12.8 Fl [facility] BASOPHILS ABSOLUTE 0.0 0.0 - 0.2 K/ul [facility] HEMOGLOBIN 14.1 14.0 - 18.0 g/dL [facility] MONOCYTES 4.4 2.0 - 10.0 % [facility] RDW 13.0 11.0 - 14.5 % [facility] MONOCYTE ABSOLUTE 0.2 0.1 - 0.6 K/ul [facility] WBC 4.8 4.8 - 10.8 K/ul [facility] NEUTROPHILS 74.8 42.2 - 75.2 % [facility] MCH 33.5 27.0 - 34.0 pg [facility] NEUTROPHIL ABSOLUTE 3.6 2.0 - 8.0 K/ul [facility] HEMATOCRIT 40.9(L) 41.0 - 53.0 % [facility] PLATELETS 153 140 - 440 K/ul [facility] Blood specimen (specimen) 03/08/2008 8:14 AM CDT 03/08/2008 8:14 AM CDT Sonido Galvan MD HEMATOLOGY ORDERABLES Fin al Result Performing Organization Address [facility] Phone Number INTERFACE SYSTEM Refer to clinic/hospital department [facility] CLIA# [id number] [address] [place] [address] * (ABNORMAL) PTT (03/08/2008 8:14 AM CDT) PTT 123.5(H) 22.5 - 36.5 Secs [facility] Comment: Therapeutic Range: Hi-level PE/DVT [...] ORDERABLES Fin al Result Performing Organization Address [facility] Phone Number INTERFACE SYSTEM Refer to clinic/hospital [facility] CLIA# [id number] [address] [place] [address] * PROTIME-INR (03/08/2008 8:14 AM CDT) PROTIME 14.3 12.8 - 15.8 Secs [facility] Comment:As of 2007 not e change in normal range. INR 1.0 [facility] Comment: Expected Values for INR: DVT/PE Goal INR 2.5; range 2.0 - 3.0 Valve Replacement Tissue Goal INR 2.5; range 2.0 - 3.0 Mechanical Goal INR 3.0; range 2.5 - 3.5 POST-[place] Goal INR 2.5; range 2.0 - 3.0 or Goal 3.0; range 2.5 - 3.5 Atrial Fibrillation Goal INR 2.5; range 2.0 - 3.0 Ischemic Stroke Goal INR 2.5; range 2.0 - 3.0 For additional information see Guidelines for Anticoagulation available from the pharmacy [facility] [phone] Blood specimen (specimen) 03/08/2008 8:14 AM CDT 03/08/2008 8:14 AM CDT Sonido Galvan MD HEMATOLOGY ORDERABLES Fin al Result Performing Organization Address [facility] Phone Number INTERFACE SYSTEM Refer to clinic/hospital department [facility] CLIA# [id number] [address] [place] [address] * CARDIAC ENZYMES (03/08/2008 8:14 AM CDT) CKMB 0.8 0.0 - 5.0 ng/mL [facility] TROPONIN I <0.1 0.0 - 1.3 ng/mL [facility] Blood specimen (specimen) 03/08/2008 8:14 AM CDT 03/08/2008 8:14 AM CDT Sonido Galvan MD CHEMISTRY ORDERABLES Siobhan l Result Performing Organization Address [facility] de Phone Number INTERFACE SYSTEM Refer to clinic/hospital department [facility] CLIA# [id number] [address] [place] [address] * XR CHEST PA OR AP (03/08/2008 [...] By: Elma Mansfield M.D. Date Signed: 03/10/08 [facility] Procedure Note Elma Mansfield MD - 03/10/2008 [...] By: Elma Mansfield M.D. Date Signed: 03/10/08 [facility] Sonido Galvan MD DIAGNOSTIC IMAGING ORDERA BLES Final Result documented in this encounter Visit Diagnoses Not on filedocumented in this encounter Care Teams Granite Sandblaster Apprentice Relationship Specialty Start Date End Date Kalani Guillaume MD [address] [place] [address] PCP - General Family Practice 12/31/16 documented as of this encounter
--- OUTSIDE RECORDS SUMMARY | 2025-04-03 08:36 | XMS_ITS | Encounter Summary ---
Author Organization [facility] Address [address] [place] [address] Care Team Providers Care Talkback Host Name Role Phone Kalani Guillaume MD Primary Care Provider [phone] Encounter Details Date Type Department Care Team (Latest Contact Info) Description 11/28/2003 Outpatient Historical HIS [facility] Jace Lilly MD [address] [place] [phone] DERANG POST MED MENISCUS (Primary Dx) Social History Tobacco Use Types Packs/Day Years Used Date Smoking Tobacco: Never Assessed Sex and Gender Information Value Date Recorded Sex Assigned at Not on file Legal Sex Male 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
--- OUTSIDE RECORDS SUMMARY | 2025-04-03 08:36 | XMS_ITS | Encounter Summary ---
Author Organization [facility] Address [address] [place] [address] Care Team Providers Care Pattern And Chain Maker Name Role Phone Kalani Guillaume MD Primary Care Provider Encounter Details Date Type Department Care Team (Latest Contact Info) Description 08/09/2003 Outpatient Historical [facility] Orthopedics- 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
--- OUTSIDE RECORDS SUMMARY | 2025-04-03 08:36 | XMS_ITS | Encounter Summary ---
Author Organization [facility] Address [address] [place] [address] Care Team Providers Care Infrastructure Design Engineer Name Role Phone Kalani Guillaume MD Primary Care Provider [phone] Encounter Details Date Type Department Care Team (Latest Contact Info) Description 06/19/2004 Outpatient Historical [facility] Orthopedics- [address] [place] [address] Jace Lilly MD [address] [place] [phone] LOC PRIM OSTEOART-PELVIS (Primary Dx); Hip joint replacement; Aftercare joint replacement Social History Tobacco Use Types Packs/Day Years Used Date Smoking Tobacco: Never Assessed Sex and Gender Information Value Date Recorded Sex Assigned at Not on file Legal Sex Male 3:37 AM SURGICAL GARMENT INSPECTOR Gender Identity Not on file Sexual Orientation Not on file documented as of this encounter Plan of Treatment Not on file documented as of this encounter Visit Diagnoses Diagnosis Primary localized osteoarthrosis, pelvic region and thigh- Primary Hip joint replacement Hip joint replacement by other means Aftercare joint replacement Aftercare following joint replacement documented in this encounter Care Teams Infrastructure Design Engineer Relationship Specialty Start Date End Date Kalani Guillaume MD [address] [place] [address] PCP - General Family Practice 12/31/16 documented as of this encounter
--- OUTSIDE RECORDS SUMMARY | 2025-04-03 08:36 | XMS_ITS | Encounter Summary ---
Author Organization [facility] Address [address] [place] [address] Care Team Providers Care Superintendent Cemetery Name Role Phone Kalani Guillaume MD Primary Care Provider Encounter Details Date Type Department Care Team (Latest Contact Info) Description 08/02/2006 Outpatient Historical [facility] Cardiology- [place] [address] [place] [address] Rain Murillo, SENIOR ABAP DEVELOPER [address] [place] [address] Coronary Atherosclerosis of [place] Coronary Artery (Primary Dx); Unspecified Chronic Ischemic Heart Disease; Unspecified Peripheral Vascular Disease; Unspecified Essential Hypertension Social History Tobacco Use Types Packs/Day Years Used Date Smoking Tobacco: Never Assessed Sex and Gender Information Value Date Recorded Sex Assigned at Not on file Legal Sex Male 3:37 AM INSULATION WORKER INTERIOR 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
--- OUTSIDE RECORDS SUMMARY | 2025-04-03 08:36 | XMS_ITS | Encounter Summary ---
Author Organization [facility] Address [address] [place] [address] Care Team Providers Care Automatic Machines Supervisor Name Role Phone Kalani Guillaume MD Primary Care Provider Encounter Details Date Type Department Care Team (Late st Contact Info) Description 03/06/2004 Outpatient [facility] [address] [facility] [address] [place] [address] Tg Darby MD [address] [facility] [address] [place] [address] Social History Tobacco Use Types Packs/Day Years Used Date Smoking Tobacco: Never Assessed Sex and Gender Information Value Date Recorded Sex Assigned at Not on file 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
--- OUTSIDE RECORDS SUMMARY | 2025-04-03 08:36 | XMS_ITS | Encounter Summary ---
Author Organization [facility] Address [address] [place] [address] Care Team Providers Care Supervisor Production Name Role Phone Kalani Guillaume MD Primary Care Provider [phone] Encounter Details Date Type Department Care Team (Latest Contact Info) Description 07/02/2006 Outpatient Historical [facility] Cardiac Town Clerk [address] [place] [address] Roger Gimenez MD [address] [facility] [address] [place] [address] Coronary Atherosclerosis of [place] Coronary Artery (Primary Dx) Social History Tobacco Use Types Packs/Day Years Used Date Smoking Tobacco: Never Assessed Sex and Gender Information Value Date Recorded Sex Assigned at Not on file Legal Sex Male 3:37 AM MARKET GARDENER Gender Identity Not on file Sexual Orientation Not on file documented as of this encounter Plan of Treatment Not on file documented as of this encounter Procedures Procedure Name Priority Date/Time Associated Diagnosis Comments PT AND APTT Routine 07/02/2006 8:14 AM MARKET GARDENER CBC WITHOUT DIFFERENTIAL Routine 07/02/2006 8:14 AM MARKET GARDENER BASIC METABOLIC PANEL Routine 07/02/2006 8:14 AM MARKET GARDENER documented in this encounter Results * PT AND APTT (07/02/2006 8:14 AM MARKET GARDENER) PROTIME 13.6 13.0 - 15.7 Secs INTERFACE SYSTEM Comment: As of 06 note change in normal range. INR 0.9 INTERFACE SYSTEM Comment: Expected Values for INR: DVT/PE Goal INR 2.5; range 2.0 - 3.0 Valve Replacement Tissue Goal INR 2.5; range 2.0 - 3.0 Mechanical Goal INR 3.0; range 2.5 - 3.5 POST-VA Goal INR 2.5; range 2.0 - 3.0 [...] in APTT Normal Range. 07/02/2006 8:14 AM MARKET GARDENER Roger Gimenez MD HEMATOLOGY ORDERABLES Edited INTERFACE SYSTEM Refer to clinic/hospital department * (ABNORMAL) CBC WITHOUT DIFFERENTIAL (07/02/2006 8:14 AM MARKET GARDENER) WBC 3.9(L) 4.8 - 10.8 K/ul INTERFACE [...] 0.2 K/ul INTERFACE SYSTEM 07/02/2006 8:14 AM MARKET GARDENER Roger Gimenez MD HEMATOLOGY ORDERABLES Edited Performing Organization Address [facility] de Phone Number INTERFACE SYSTEM Refer to clinic/hospital department * (ABNORMAL) BASIC METABOLIC PANEL (07/02/2006 8:14 AM MARKET GARDENER) GLUCOSE 112(H) 70 - 110 mg/dL INTERFACE [...] 10.5 mg/dL INTERFACE SYSTEM 07/02/2006 8:14 AM MARKET GARDENER Roger Gimenez MD CHEMISTRY ORDERABLES Edited Performing Organization Address [facility] de Phone Number INTERFACE SYSTEM Refer to clinic/hospital department documented in this encounter Visit Diagnoses Diagnosis Coronary atherosclerosis of [place] coronary artery- Primary documented in this encounter Care Teams Supervisor Production Relationship Specialty Start Date End Date Klaani Guillaume MD [address] [place] [address] PCP - General Family Practice 12/31/16 documented as of this encounter
--- OUTSIDE RECORDS SUMMARY | 2025-04-03 08:36 | XMS_ITS | Encounter Summary ---
Author Organization [facility] Address [address] [place] [address] Care Team Providers Care Annual Campaign Manager Name Role Phone Kalani Guillaume MD Primary Care Provider Encounter Details Date Type Department Care Team (Latest Contact Info) Description 04/01/2004 Outpatient [facility] [address] [phone] Bob Noel MD [address] [place] [address] CERVICAL SPONDYLOSIS (Primary Dx) Social History Tobacco Use Types Packs/Day Years Used Date Smoking Tobacco: Never Assessed Sex and Gender Information Value Date Recorded Sex Assigned at Not on file Legal Sex Male 3:37 AM STOVE TENDER Gender Identity Not on file Sexual Orientation Not on file documented as of this encounter Plan of Treatment Not on file documented as of this encounter Visit Diagnoses Diagnosis 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
--- OUTSIDE RECORDS SUMMARY | 2025-04-03 08:36 | XMS_ITS | Encounter Summary ---
Author Organization [facility] [facility] [employer], [facility] Address [address] [facility] [address] [place] [address] Phone Care Team Providers Care Screwmaker Automatic Name Role Phone Kalani Guillaume MD Primary Care Provider [phone] Encounter Details Date Type Department Care Team (Late st Contact Info) Description 05/15/2020 Orders Only [facility] [employer] [address] [facility] [address] [place] [address] Renal insufficiency Social History Tobacco [...] Description 10/01/2025 10:00 AM CDT Office Visit [facility] [address] [place] [address] Flavia Wick MD [address] [address] documented as of this encounter Visit Diagnoses Diagnosis Renal insufficiency documented in this encounter Care Teams Screwmaker Automatic Relationship Specialty Start Date End Date Kalani Guillaume MD [address] [place] [address] PCP - General Family Medicine 05/15/20 documented as of this encounter
--- OUTSIDE RECORDS SUMMARY | 2025-04-03 08:36 | XMS_ITS | Encounter Summary ---
Author Organization [facility] Address [address] [place] [address] Care Team Providers Care Belt Brander Name Role Phone Kalani Guillaume MD Primary Care Provider Encounter Details Date Type Department Care Team (Latest Contact Info) Description 01/31/2007 Outpatient Historical [facility] Cardiology- [place] [address] [place] [address] Roger Gimenez MD [address] [facility] [address] [place] [address] Unspecified Chronic Ischemic Heart Disease (Primary Dx); Benign Hypertension; Other and Unspecified Angina Pectoris; Other and Unspecified Hyperlipidemia Social History Tobacco Use Types Packs/Day Years Used Date Smoking Tobacco: Never Assessed Sex and Gender Information Value Date Recorded Sex Assigned at Not on file Legal Sex Male 3:37 AM CONTACT CENTER 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
--- OUTSIDE RECORDS SUMMARY | 2025-04-03 08:37 | XMS_ITS | Patient Health Record ---
Author Organization [facility] Address [address] [place] [address] Care Team Providers Care Consulting Database Administrator Name Role Phone AundreaRomeroKalani Primary Care Provider UnavailRuddy Parker Unavailable [phone] Migration, Provider Unavailable Unavailable Reynaldo Sweet Unavailable [phone] Serafin Sherwood Unavailable [phone] Tico Khanna Unavailable [phone] Sharona Farris Unavailable [phone] Karen Pineda Unavailable [phone] Allergies Allergen (clinical drug ingredient) Drug/Non Drug Allergy documented on EMR Reaction Allergy Type Onset Date Status Iodine Unknown Drug Allergy Active Adhesive Unknown Allergy Active meperidine Meperidine Unknown Drug Allergy Activ e morphine Morphine Unknown Drug Allergy Active Results Component Value Reference Range Flag Notes zzzUrine Drug Screen (confir mation by instrument) - [id number] Reviewed date:08/04/2024 09:29:41 AM Interpretation: Performing Lab: Notes/Report: Tox Results Reviewed date:02/06/2025 02:37:29 PM Interpretation: Performing Lab: Notes/Report: Schedule Confirmation (Not y et reviewed by provider) Interpretation: Performing Lab: Notes/Report: CTA AFRO w/ + w/o Contrast CTA AFRO w/ + w/o Contrast-7 0918 (Not yet reviewed by provider) Interpretation: Performing Lab: Notes/Report: See Below For Report CTA AFRO w/ + w/o Contrast Please schedule for 06/08/24 in the AM - to be seen the same day. Please perform with 0.6 mm slices. Patient will need pre and post hydration Read See Below For Report Creatinine (B) 97806 Reviewed date:03/01/2025 04:53:46 PM Interpretation: Performing Lab: Notes/Report: Diagnosis Description: Atherosclerosis of [place] arteries of extremities with intermittent claudication, left leg Creat 1.48 .57-1.17 MG/DL HI Use of this assay is not recommended for patients undergoing treatment with phenindione, due to the potential for falsely depressed results. S-sbrabx-h-benzoquinon e imine (NAPQI) is a metabolite of [...] Performing Lab: Notes/Report: Diagnosis Description: Atherosclerosis of [place] arteries of extremities with intermittent claudication, left leg BUN 28 7-21 MG/DL HI Schedule Confirmation (Not y et reviewed by provider) Interpretation: Performing Lab: Notes/Report: CTA AFRO w/ + w/o Contrast Schedule Confirmation (Not y et reviewed by provider) Interpretation: Performing Lab: Notes/Report: CTA AFRO w/ + w/o Contrast zzzUrine Drug Screen (confir mation by instrument) - 28638 Reviewed date:06/08/2024 12:07:11 PM Interpretation: Performing Lab: Notes/Report: US Doppler Scan Arterial LE Bilat-68316 (Not yet reviewed by provider) Interpretation: Performing Lab: Notes/Report: This report was dictated at the [facility] FINAL REPORT Read This report was dictated at the [facility] CTA AFRO w/ + w/o Contrast-7 8558 (Not yet reviewed by provider) Interpretation: Performing Lab: Notes/Report: [id number] Urine Confirmation Panel (in strument) - [id number] Reviewed date:02/06/2025 02:53:35 PM Interpretation: Performing Lab: [...] the U.S. Food and Drug Administration. Gabapentin >22582 <225 ng/mL > This test was developed [...] Administration. Urine Drug Screen (cup read) - 83430 Reviewed date:02/01/2025 01:18:08 PM Interpretation: Performing Lab: Notes/Report: OPI + Urine Confirmation Panel (in strument) - 84814 Reviewed date:10/10/2024 11:05:57 AM Interpretation: Performing Lab: [...] the U.S. Food and Drug Administration. Gabapentin >97551 <225 ng/mL > This test was developed [...] Administration. Urine Drug Screen (cup read) - 28995 Reviewed date:10/05/2024 12:56:42 PM Interpretation:Negative Performing Lab: Notes/Report: Negative Urine Confirmation Panel (in strument) - 34878 Reviewed date:10/30/2024 02:45:33 PM Interpretation: Performing Lab: [...] the U.S. Food and Drug Administration. Gabapentin >46900 <225 ng/mL > This test was developed [...] date:10/10/2024 02:27:01 PM Interpretation: Performing Lab: Notes/Report: Schedule Confirmation (Not y et reviewed by provider) Interpretation: Performing Lab: Notes/Report: CTA AFRO w/ + w/o Contrast US Doppler Scan Arterial LE Bilat-35313 (Not yet reviewed by provider) Interpretation: Performing Lab: Notes/Report: [id number]=iSite Reason For Referral Reason Nature lower extremi ty peripheral vascular disease: Evaluation and treat Diagnosis 1 Peripheral vascular disease (I73.9) Referral Organization [facility] Referring Provider First Name Serafin Referring Provider Last Name Loyda Referring Provider Speciality Orthopedic Surgery Referred Organization [facility] Referred Provider Tico Khanna Referred Address [address] [place] [address] [address],[place], [place],[address], Referred Provider Specialty Vascular Shira ba General Notes Dannielle Posey 07/2023 08:40:40 AM >Appointment with Dr. Doshi on 06/08 Referral Priority Routine Reason peripheral artery di sease - no testing found Diagnosis 1 Peripheral vascular disease (I73.9) Referring Provider First Name SERAFIN Referring Provider Last Name LOYDA Referring Provider Speciality Orthopedic Surgery Referred Organization [facility] Referred Provider Tico Khanna Referred Address [address] [place] [address] [address],[place], [place],[address], Referred Provider Specialty Vascular Shira ba General [...] 02/01/2025 Active Isosorbide Mononitrate *Pick strength-form from [facility] for eRX* Unknown Indomethacin *Pick strength-form from [facility] for eRX* Unknown Hydralazine *Reorder from [facility] for eRx and Interaction Alerts* Unknown Gabapentin *Pick strength-form from [facility] for eRX* Unknown Furosemide *Pick strength-form from [facility] for eRX* Unknown Fluticasone Propionate 50 MCG/ACT Suspension 1 spray in each nostril Nasally Twice a day Unknown NIFEdipine *Pick strength-form from [facility] for eRX* Unknown Metoprolol Succinate *Pick strength-form from [facility] for eRX* Unknown methylPREDNISolone 32 MG Tablet 1 tablet Orally 12 hours before CTA and 2 hours before CTA; Duration: 2 days 05/25/2024 Unknown Cranberry Extract *Pick strength-form from [facility] for eRX* Unknown Lansoprazole *Pick strength-form from [facility] for eRX* Unknown Budesonide-Formoterol Fumarate 160-4.5 MCG/ACT Aerosol 1 puff as needed Inhalation every 4 hrs Unknown Aspirin *Pick strength-form from [facility] for eRX* Unknown Ascorbic Acid 1000 MG Tablet 1 tablet Orally Once a day Unknown Allopurinol 300 MG Tablet 1 tablet Orally Once a day Unknown Albuterol Sulfate *Pick strength-form from [facility] for eRX* Unknown Acetaminophen *Pick strength-form from [facility] for eRX* Unknown sulfaSALAzine *Pick strength-form from [facility] for eRX* Unknown Rosuvastatin *Reorder from [facility] for eRx and Interaction Alerts* Unknown Rivaroxaban 15 MG Tablet 1 tablet with food Orally Once a day Unknown predniSONE 5 MG/ML Concentrate 1 mL Orally Once a day Unknown Potassium Chloride *Pick strength-form from [facility] for eRX* Unknown Nitroglycerin *Pick strength-form from [facility] for eRX* Unknown fexofenadine *Reorder from [facility] for eRx and Interaction Alerts* Unknown Xarelto *Pick strength-form from [facility] for eRX* Unknown Ferrous Sulfate 325 (65 Fe) MG Tablet 1 tablet Orally Three times a Week Unknown Vitamin D3 *Pick strength-form from [facility] for eRX* Unknown Elderberry Immune Health *Reorde r from [facility] for eRx and Interaction Alerts* Unknown Vitamin [...] Status Risk Notes Problem Chronic pain syndrome (876154161) Chronic pain syndrome (G89.4) 12/07/19 24 Active confirmed Problem Intermittent claudication of left lower limb co-occurrent and due to atherosclerosis (finding) (98795117154258149 ) Atherosclerosis of [place] arteries of extremities with intermittent claudication, left leg (I70.212) Active confirmed Problem High risk drug monitoring status (430267655) snf (current) use of opiate analgesic (Z79.891) Active confirmed Problem Osteoarthritis of right knee joint (882916648224595) Osteoarthritis of right knee, unspecified osteoarthritis type (M17.11) Active confirmed Problem Arthritis of both knees (5788171023090390) Arthritis of both knees (M17.0) Active confirmed Problem Peripheral vascular disease (768282415) Peripheral vascular disease (I73.9) Active confirmed Problem Osteoarthritis of left knee joint (426416881907476) Osteoarthritis of left knee, unspecified osteoarthritis type (M17.12) Active confirmed Problem Abnormal gait (93030798) Abnormality of gait and mobility (R26.9) Active confirmed Problem Degeneration of intervertebral disc of lumbar region with discogenic back pain (M51.360) Active confirmed Vital Signs Heart Rate 91 /min 07/21/2024 Temperature 98.2 degrees Fahrenheit 06/27/2024 Respiratory Rate 18 /min 06/27/2024 Height-cm 175.26 cm 11/29/2024 Oximetry 96 % 07/21/2024 Blood pressure diastolic 80 mm Hg 07/21/2024 Weight-kg 78.93 kg 11/29/2024 Height 69 in 11/29/2024 Blood pressure systolic 142 mm Hg 07/21/2024 Weight 174 lbs 11/29/2024 BMI 25.69 kg/m2 11/29/2024 Encounters Encounter Location Date Provider Diagnosis [facility] [address] [place] [address] 05/24/2024 [facility] [address] [place] [address] 04/13/2024 Karen Pineda [facility] [address] [place] [address] 05/05/2024 Serafin hSerwood Arthritis of both knees M17.0 and Peripheral vascular disease I73.9 [facility] [address] [place] [address] 05/24/2024 Tico Khanna Peripheral vascular disease I73.9 [facility] [address] [place] [address] 05/26/2024 Serafin Sherwood Arthritis of both knees M17.0 and Peripheral vascular disease I73.9 [facility] [address] [place] [address] 05/31/2024 Ruddy Saini Chronic pain syndrom e G89.4 ; 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 ; Osteoarthritis of left knee, unspecified osteoarthritis type M17.12 ; Osteoarthritis of right knee, unspecified osteoarthritis type M17.11 and snf (current) use of opiate analgesic Z79.891 [facility] [address] [place] [address] 06/27/2024 Tico Clemencia Peripheral vascular disease I73.9 [facility] [address] [place] [address] 07/21/2024 Serafin Sherwood Arthritis of both knees M17.0 [facility] [address] [place] [address] 07/26/2024 Ruddy Saini Chronic pain syndrom e G89.4 ; 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 ; Osteoarthritis of right knee, unspecified osteoarthritis type M17.11 ; Osteoarthritis of left knee, unspecified osteoarthritis type M17.12 and terminal operator (current) use of opiate analgesic Z79.891 [facility] [address] [place] [address] 10/05/2024 Karen Pineda Chronic pain syndrom e G89.4 ; 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 ; Osteoarthritis of right knee, unspecified osteoarthritis type M17.11 ; Osteoarthritis of left knee, unspecified osteoarthritis type M17.12 and terminal operator (current) use of opiate analgesic Z79.891 [facility] [address] [place] [address] 11/29/2024 Ruddy Saini Chronic pain syndrom e G89.4 ; 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 ; Osteoarthritis of right knee, unspecified osteoarthritis type M17.11 ; Osteoarthritis of left knee, unspecified osteoarthritis type M17.12 and snf (current) use of opiate analgesic Z79.891 [facility] [address] [place] [address] 02/01/2025 Karen Edwin Chronic pain syndrom e G89.4 ; 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 ; Osteoarthritis of right knee, unspecified osteoarthritis type M17.11 ; Osteoarthritis of left knee, unspecified osteoarthritis type M17.12 and snf (current) use of opiate analgesic Z79.891 [facility] 0 04/08/2024 Provider Migration [facility] 0 04/09/2024 Provider Migration [facility] [address] [place] [place] [address] 05/09/2024 Tico Khanna [facility] [address] [place] [place] [address] 05/25/2024 Tico Khanna Atherosclerosis of [place] arteries of extremities with intermittent claudication, left leg I70.212 [facility] [address] [place] [address] 06/02/2024 Ruddy Saini [facility] [address] [place] [address] 2024 Ruddy Saini [facility] [address] [place] [address] 2024 Ruddy Saini Chronic pain syndrom e G89.4 [facility] [address] [place] [place] [address] 06/08/2024 Tico Khanna [facility] [address] [place] [address] 10/05/2024 Ruddy Saini [facility] [address] [place] [address] 02/01/2025 Ruddy Saini Osteoarthritis of right knee, [...] am going to refer him to the [place] [facility] for evaluation. 05/05/2024 Peripheral vascular disease (ICD-10 - I73.9) I am going to refer this individual to Dr. Tico Khanna further evaluation 11/29/2024 Chronic pain syndrome (ICD-10 - G89.4) [...] effects are noted. Last UDS and [place] EDUCATIONAL ADMINISTRATION TEACHER reviewed today. Patient is advised that [...] effects are noted. Last UDS and [place] EDUCATIONAL ADMINISTRATION TEACHER reviewed today. Patient is advised that [...] has been made aware of this policy. 07/26/2024 Chronic pain syndrome (ICD-10 - G89.4) [...] effects are noted. Last UDS and [place] EDUCATIONAL ADMINISTRATION TEACHER reviewed today. Patient is advised that [...] with discogenic back pain (ICD-10 - M51.360) 07/21/2024 Arthritis of both knees (ICD-10 - [...] suffice for his care at this time. 06/27/2024 Peripheral vascular disease (ICD-10 - I73.9) [...] function. We will reach out to his ct mri technologist and see if we can obtain clearance. Patient will continue to think about surgery and get back to us. 2024 Chronic pain syndrome (ICD-10 - G89.4) 05/31/2024 Chronic pain syndrome (ICD-10 - G89.4) [...] with discogenic back pain (ICD-10 - M51.360) 05/26/2024 Arthritis of both knees (ICD-10 - [...] (ICD-10 - I73.9) Continue with vascular workup. 05/25/2024 Atherosclerosis of [place] arteries of extremities with intermittent claudication, left leg (ICD-10 - I70.212) 05/24/2024 Peripheral vascular disease (ICD-10 - I73.9) [...] abdomen pelvis to further delineate his anatomy. 07/26/2024 Osteoarthritis of right knee, unspecified osteoarthritis type (ICD-10 - M17.11) 05/31/2024 Osteoarthritis of left knee, unspecified osteoarthritis type (ICD-10 - M17.12) 10/05/2024 Degeneration of intervertebral disc of lumbar region with discogenic back pain (ICD-10 - M51.360) 11/29/2024 Degeneration of intervertebral disc of lumbar region with discogenic back pain (ICD-10 - M51.360) 02/01/2025 Degeneration of intervertebral disc of lumbar region with discogenic back pain (ICD-10 - M51.360) 02/01/2025 Osteoarthritis of right knee, unspecified osteoarthritis type (ICD-10 - M17.11) 11/29/2024 Osteoarthritis of right knee, unspecified osteoarthritis type (ICD-10 - M17.11) 10/05/2024 Osteoarthritis of right knee, unspecified osteoarthritis type (ICD-10 - M17.11) 05/31/2024 Osteoarthritis of right knee, unspecified osteoarthritis type (ICD-10 - M17.11) 07/26/2024 Osteoarthritis of left knee, unspecified osteoarthritis type (ICD-10 - M17.12) 05/31/2024 terminal operator (current) use of opiate analgesic (ICD-10 - Z79.891) 10/05/2024 Osteoarthritis of left knee, unspecified osteoarthritis type (ICD-10 - M17.12) 07/26/2024 snf (current) use of opiate analgesic (ICD-10 - [...] to abide by our urine testing policy. 11/29/2024 Osteoarthritis of left knee, unspecified osteoarthritis type (ICD-10 - M17.12) 02/01/2025 Osteoarthritis of left knee, unspecified osteoarthritis type (ICD-10 - M17.12) 02/01/2025 terminal operator (current) use of opiate analgesic (ICD-10 - Z79.891) 11/29/2024 snf (current) use of opiate analgesic (ICD-10 - Z79.891) 10/05/2024 snf (current) use of opiate analgesic (ICD-10 - Z79.891) 05/31/2024 Other Todd Martin am scribing for Ruddy Saini. Ruddy Martin, personally performed the services described in this documentatio n, as scribed by Todd Pfeiffer, and it is both accurate and complete. 07/26/2024 Todd Shepard am scribing for Dr. Ruddy Saini. Veronica, Dr. Ruddy Saini, personally performed the services described in this documentation, as scribed by Todd Pfeiffer, and it is both accurate and complete. 11/29/2024 Other Sada Martin NCMA, am scribing for Dr. Ruddy Saini. Dr. Ruddy Martin, personally performed the services described in this documentation, as scribed by CLIVE Vidales, and it is both accurate and complete. Plan Of Treatment Pending Test Test Name Order Date Blood Urea Nitrogen (BUN) 88763 05/25/20 24 Creatinine (B) 69072 05/25/2024 CTA AFRO w/ + w/o Contrast-93289 025 CTA AFRO w/ + w/o Contrast-88717 024 US Doppler Scan Arterial LE Bilat-65840 05/24/2024 US Doppler Scan Arterial LE Bilat-55546 05/24/2024 Schedule Confirmation 06/08/2024 Schedule Confirmation 06/22/2024 Schedule Confirmation 06/27/2024 Schedule Confirmation 06/27/2024 Next Appt Details Provider Name:Karen Velez Concetta sadler, 04/05/2025 11:00:00 AM, [address] [place], [address], Insurance Providers Payer Name Payer Address Payer Phone Subscriber Number Group Number Insured Name Patient Relationship to Insured Coverage Start Date Coverage End Date [employer] Medicare Replacement [address] [address] [place] [address] [id number] Juan M Sierra Self - patient is the insured Medical (General) History Medical History History ICD Code measles mumps Chicken Pox Pneumonia Heart Disease Arthritis bladder infections cancer - unspecified hernia osteoporosis Back Trouble High Blood Pressure bronchitis Surgical History Surgery Date(Month/Year) bilateral shoulder surgery Heart stents Pacemaker Total hip replacement Hospitalization History Reason Date(Month/Year) SURGICAL
--- OUTSIDE RECORDS SUMMARY | 2025-04-03 08:37 | XMS_ITS | Patient Health Record ---
Author Organization [facility] Address [address] [place] [address] Care Team Providers Care Control Panel Tester Name Role Phone Kalani Guillaume Primary Care Provider NUZHAT Patino Unavailable [phone] Chiki Bennett Unavailable [phone] Allergies Allergen (clinical drug ingredient) Drug/Non Drug Allergy documented on EMR Reaction Allergy Type Onset Date Status Adhesive Unknown Allergy Active Iodine Unknown Drug Allergy Active meperidine Meperidine Unknown Drug Allergy Activ e morphine Morphine Unknown Drug Allergy Active Reason For Referral No Information Medications Medication [...] Acid 1000 MG 1 tablet Orally On a day Active Rivaroxaban 15 MG 1 [...] Status Risk Notes Problem Benign prostatic hyperplasia (325449646) BPH (benign prostatic hyperplasia) (N40.0) Active confirmed Problem Iktcx-7-mxwufsxd sin deficiency (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) 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 confirmed Problem Benign prostatic hypertrophy with outflow obstruction (965554764) BPH loc w urin obs/LUTS (N40.1) Active confirmed Vital Signs Heart Rate 84 /min 09/20/2024 Blood pressure diastolic 83 mm Hg 09/20/2024 Height-cm 160.02 cm 09/20/2024 Weight-kg 74.84 kg 09/20/2024 Height 63 in 09/20/2024 Blood pressure systolic 148 mm Hg 09/20/2024 Weight 165 lbs 09/20/2024 BMI 29.23 kg/m2 09/20/2024 Procedures Procedure Date Ordered Date Performed Result Body Sit e Bladder Scan 09/20/2024 09/20/2024 N/A UroFlow 09/20/2024 N/A Encounters Encounter Location Date Provider Diagnosis [facility] [address] [facility] [place] [address] 09/20/2024 Chiki Bennett Weak urine stream R39.12 [...] were answered. Patient satisfied with plan. 09/20/2024 BPH loc w urin obs/LUTS (ICD-10 [...] answered. Patient satisfied with plan. 09/20/2024 Urinary urgency (ICD-10 - R39.15) Reviewed [...] were answered. Patient satisfied with plan. 09/20/2024 Nocturia (ICD-10 - R35.1) Reviewed todays [...] were answered. Patient satisfied with plan. 09/20/2024 Other Reviewed todays Uroflow: Peak effect [...] 09/20/2024 Next Appt Details Provider Name:Chiki Bennett, 04/18/2025 01:40:00 PM, [address] [place], [address], Insurance Providers Payer Name Payer Address Payer Phone Subscriber Number Group Number Insured Name Patient Relationship to Insured Coverage Start Date Coverage End Date [employer] Medicare Replacement [address] [address] [place], [place] [id number] Juan M Mabry Self - patient is the insured Medical (General) History Medical History History ICD Code Osteoarthritis Rheumatoid arthritis Coronary artery disease Degenerative disc disease Heart disease Hyperlipidemia Hypertension COPD Back pain Dysuria Kidney disease BPH Surgical History Surgery Date(Month/Year) Cardiac stents 2003 Hip surgery 2004 Bilateral shoulder replacement 2016
--- OUTSIDE RECORDS SUMMARY | 2025-04-03 08:37 | XMS_ITS | Encounter Summary ---
Author Organization [facility] Address [address] [place] [address] Care Team Providers Care Gyroscope Repairer Name Role Phone Kalani Guillaume MD Primary Care Provider Encounter Details Date Type Department Care Team (Latest Contact Info) Description 08/02/2006 Outpatient Historical [facility] [address] [place] [address] Dayo Simms MD [address] [facility] [address] [place] [address] Other and Unspecified Angina Pectoris (Primary Dx); Coronary Atherosclerosis of [place] Coronary Artery Social History Tobacco Use Types Packs/Day Years Used Date Smoking Tobacco: Never Assessed Sex and Gender Information Value Date Recorded Sex Assigned at Not on file 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
--- NOTE | 2025-04-03 08:42 | W.ED.HA ---
HPI - Headache General: Chief Complaint: Headache Stated Complaint: LU, difficulty speaking, tingling in arms Time Seen by Provider: 04/03/25 08:28 History of Present Illness: 84-year-old male presents emergency room with complaint of occipital headache. On 03/10/2025 patient had a fall and had a small subacute left subdural hematoma with a midline shift of 1 mm. Patient was transferred to [place] at that time monitored he is on it was on anticoagulants for peripheral vascular disease anticoagulants were stopped as well as indomethacin. On March 19, 2025 patient return to the emergency room with a headache had a repeat head CT did not show any significant change in the previously of her subdural hematoma. Per the patient and the family there is no intervention taken on this when he was transferred. No further injury since then. No other falls. On initial evaluation he has no focal neurologic deficit and NIH is 0. Associated symptoms: Deny chest pain, fever(s) or rash Related Data Home Medications ?Medication ?Instructions ?Recorded ?Confirmed aspirin 81 mg tablet,delayed 81 mg PO DAILY 04/23/20 02/07/25 release nitroglycerin 0.4 mg sublingual 0.4 mg sublingual Q5M PRN Chest 04/23/20 02/07/25 tablet (Nitrostat) Pain rosuvastatin 20 mg tablet 20 mg PO DAILY 04/23/20 02/07/25 tamsulosin 0.4 mg capsule 0.4 mg PO DAILY 04/23/20 02/07/25 vitamin B complex 1 tab PO BID 04/23/20 02/07/25 calcium 333 mg-vit D3 200 1 tab PO DAILY 05/12/21 02/07/25 unit-magnesium 133 mg-zinc 5 mg tablet ascorbic acid (vitamin C) 500 mg 250 mg PO BID 08/04/21 02/07/25 tablet (Vitamin C) cranberry fruit 400 mg capsule 400 mg PO DAILY 08/04/21 02/07/25 elderberry fruit 460 mg-elderberry 1 cap PO BID 08/04/21 02/07/25 flower 115 mg capsule fexofenadine 60 mg tablet 60 mg PO BID 08/04/21 02/07/25 lansoprazole 15 mg capsule,delayed 15 mg PO DAILY 08/04/21 02/07/25 release (Prevacid 24Hr) acetaminophen 500 mg tablet 1,000 mg PO Q6H PRN Pain, Moderate 01/02/22 02/07/25 nifedipine 30 mg tablet,extended 30 mg PO DAILY 01/02/22 02/07/25 release 24 hr cholecalciferol (vitamin D3) 25 50 mcg PO BID 05/13/23 02/07/25 mcg (1,000 unit) chewable tablet (Vitamin D3) coenzyme Q10 10 mg capsule (Co 10 mg PO DAILY 05/13/23 02/07/25 Q-10) garlic 100 mg tablet 200 mg PO BID 05/13/23 02/07/25 indomethacin 25 mg capsule 25 mg PO TID PRN GOUT 05/13/23 02/07/25 metoprolol succinate 25 mg 25 mg PO DAILY 05/13/23 02/07/25 tablet,extended release 24 hr rivaroxaban 15 mg tablet (Xarelto) 15 mg PO DAILY 05/13/23 02/07/25 furosemide 40 mg tablet 40 mg PO BID 09/08/23 02/07/25 finasteride 5 mg tablet mg PO 02/07/25 02/07/25 hydralazine 25 mg tablet mg PO 02/07/25 02/07/25 isosorbide mononitrate 30 mg mg PO 02/07/25 02/07/25 tablet,extended release 24 hr potassium chloride 20 mEq meq PO 02/07/25 02/07/25 tablet,extended release(part/cryst) (Dontrell-Con M) Previous Rx's ?Medication ?Instructions ?Recorded Symbicort 160 mcg-4.5 See Rx Instructions .Route 10/01/22 mcg/actuation HFA aerosol inhaler .COMPLEX #11 grams (budesonide-formoterol) fluticasone propionate 50 1 spray intranasal BID PRN allergy 08/04/23 mcg/actuation nasal symptoms #16 grams spray,suspension (Flonase Allergy Relief) ferrous sulfate 324 mg (65 mg 324 mg PO DAILY #30 tabs 08/18/23 iron) tablet,delayed release cyanocobalamin (vitamin B-12) 1,000 mcg sublingual DAILY #30 tabs 09/06/23 1,000 mcg sublingual tablet tiotropium bromide 1.25 2 puff inhalation DAILY #4 grams 09/08/23 mcg/actuation mist for inhalation (Spiriva Respimat) mecobalamin (vitamin B12) 1,000 1,000 mcg sublingual DAILY #30 tabs 11/18/23 mcg disintegrating tablet,sublingual hydrocodone 5 mg-acetaminophen 325 1 tab PO QID PRN pain 30 days #120 11/24/23 mg tablet tabs albuterol sulfate 90 mcg/actuation 2 puff inhalation QID PRN 12/31/23 aerosol inhaler shortness of breath or wheezing 30 days #18 grams gabapentin 300 mg capsule 300 mg PO DAILY #90 caps 11/14/24 prednisone 5 mg tablet 5 mg PO DAILY #90 tabs 11/14/24 sulfasalazine 500 mg tablet 0.5 g PO BID #180 tabs 02/08/25 (Azulfidine) Allergies Allergy/AdvReac Type Severity Reaction Status Date / Time 2-octyl cyanoacrylate Allergy ALGY-Rash Verified 02/07/25 12:57 iodine Allergy ALGY-Bliste Verified 02/07/25 12:57 r meperidine Allergy ALGY-Hives Verified 02/07/25 12:57 morphine Allergy ALGY-Rash Verified 02/07/25 12:57 povidone-iodine (From Allergy Unknown Verified 02/07/25 12:57 Betadine) soap (From Betadine) Allergy Unknown Verified 02/07/25 12:57 dermabond AdvReac Intermediate adr-blister Uncoded 02/07/25 12:57 s Review of Systems Const: Denies: fever(s) or chills Card: Denies: chest pain Resp: Denies: dyspnea GI: Denies: abdominal pain : Denies: dysuria, urinary frequency or urinary urgency Musc: Denies: neck pain or back pain Skin/Breast: Denies: rash PFSH ED PFSH: Medical History Immunization counseling High risk medication use 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 CHF (congestive heart failure) Peripheral vascular disease CKD (chronic kidney disease) Pneumonia due to COVID-19 virus Surgical History S/P peripheral artery angioplasty with stent placement 2015 History of colonoscopy History of coronary angioplasty with insertion of stent 2003 S/P laparoscopic-assisted sigmoidectomy (08/06/21) H/O shoulder replacement History of right hip replacement Family History Sister Cancer Hyperlipidemia Hypertension Rheumatoid arthritis Mother Hyperlipidemia Hypertension Rheumatoid arthritis Father Hyperlipidemia Hypertension Stroke Rheumatoid arthritis Brother Hyperlipidemia Hypertension Heart attack Rheumatoid arthritis Denies family history of Diabetes Lupus Social History Smoking and tobacco/nicotine status: unknown if used tobacco/nicotine Quit status (tobacco/nicotine): has quit using Year quit tobacco: 1987 - 4PPD x 30 Years Second hand smoke exposure: No Alcohol intake: current Alcohol intake frequency: few times a week Alcohol type: wine Substance/Drug Use: never Lives independently: Yes Household members: spouse Marital status: service: Yes Current occupational status: retired Do you think of yourself as: Straight/Heterosexual Current gender identity: Male Physical Exam Const: GENERAL APPEARANCE: cooperative ORIENTATION/CONSCIOUSNESS: Yes awake, Yes oriented to person, Yes oriented to place and Yes oriented to time HENMT: COMMON NORMALS: normocephalic, atraumatic and hearing grossly normal bilaterally HEAD & SCALP: normocephalic and atraumatic Resp: COMMON NORMALS: normal respiratory effort, No retractions, No use of accessory muscles and clear to auscultation bilaterally AUSCULTATION: clear to auscultation bilaterally Cardio: COMMON NORMALS: regular rate, regular rhythm and No murmurs present (Cardio) RATE: regular rate RHYTHM: regular rhythm GI: COMMON NORMALS: Soft to palpation and No hepatosplenomegaly present AUSCULTATION: Yes normoactive bowel sounds PALPATION: Yes Soft to palpation, No Tenderness to palpation present (GI), No Guarding due to palpation present (GI) and Yes No hepatosplenomegaly present Extremity: COMMON NORMALS: normal to inspection, capillary refill normal, no clubbing, cyanosis or edema, no calf tenderness and no pedal edema Neuro: SENSORIUM/ORIENTATION: Yes oriented to person, Yes oriented to place and Yes oriented to time Skin: COMMON NORMALS: no rashes or lesions noted GENERAL SKIN EXAM: no rashes or lesions noted Course Vital Signs: Vital signs: Vital Signs Temperature 97.5 F L 04/03/25 08:30 Pulse Rate 75 04/03/25 12:00 Respiratory Rate 16 04/03/25 12:08 Blood Pressure 141/87 04/03/25 12:00 Pulse Oximetry 95 04/03/25 12:08 Oxygen Delivery Me thod Room Air 04/03/25 12:00 MDM - Headache Medical Decision Making Family expressed concern about him not having had his regular home meds. Reviewed his home medicine list and his vital signs at this point he does not require any other his medications he is very stable there is no decompensation heart failure he is not tachycardic he is not having any chest pain we will hold off on any of his regular meds for now. CT of his head showed acute on chronic worsening of his subdural hematoma now having midline shift 2 to 3 mm he is symptomatic he has not been on any anticoagulation. Discussed with neurosurgery after we had uploaded the films they recommend transfer. Ultimately after some logistic issues were worked out it was decided to transfer him ER to ER. Patient remained stable he has been given fentanyl. Medical Records I reviewed the patient's medical records. Lab Data I reviewed the patient's lab results. 04/03/25 09:06 04/03/25 09:[address] 04/03/25 08:25 IMPRESSION: 1. LEFT frontal parietal subdural hematoma has increased in size compared to 03/19/2025 with predominantly low attenuation blood products which have a subacute appearance. No significant increased attenuation blood products. Subdural hematoma measures 12 mm in maximal transverse dimension at the frontal parietal convexity. 2. Mild mass effect on the LEFT frontal lobe and LEFT lateral ventricle. 3. Mild LEFT to RIGHT midline shift measuring 2 to 3 mm new from previous. 4. No hydrocephalus. 5. Dense vascular calcification. Notified Calvin Chan DO at 04/03/2025 8:56 AM. Laboratory Results WBC 6.52 10^3/uL (3.29-11.43) 04/03/25 09:06 RBC 3.65 10^6/uL (3.85-5.65) L 04/03/25 09:06 Hgb 10.90 g/dL (11.27-16.99) L 04/03/25 09:06 Hct 38.1 % (37-53) 04/03/25 09:06 MCV 104.4 fl (82-101) H 04/03/25 09:06 MCH 29.9 pg (27-33) 04/03/25 09:06 MCHC 28.6 g/dL (30-55) L 04/03/25 09:06 RDW 17.6 % (12.1-15.1) H 04/03/25 09:06 Plt Count 123 10^3/cmm (157-399) L 04/03/25 09:06 MPV 10.6 fL (7.4-10.4) H 04/03/25 09:06 Neut % (Auto) 72.6 % 04/03/25 09:06 Lymph % (Auto) 16.6 % 04/03/25 09:06 [place] % (Auto) 6.7 % 04/03/25 09:06 Eos % (Auto) 3.1 % 04/03/25 09:06 Baso % (Auto) 0.5 % 04/03/25 09:06 Neut # (Auto) 4.74 10^3/uL (1.8-7.7) 04/03/25 09:06 Lymph # (Auto) 1.1 10^3/uL (0.8-4.8) 04/03/25 09:06 [place] # (Auto) 0.4 10^3/uL (0.2-0.9) 04/03/25 09:06 Eos # (Auto) 0.2 10^3/uL (0.0-0.8) 04/03/25 09:06 Baso # (Auto) 0.0 10^3/uL (0.0-0.1) 04/03/25 09:06 Nucleated RBC % (auto) 0 % 04/03/25 09:06 Nucleated RBCs # 0.0 /100WBC 04/03/25 09:06 PT 13.50 SECONDS (12.1-14.9) 04/03/25 09:06 INR 0.96 (0.8-1.2) 04/03/25 09:06 APTT 29.3 SECONDS (23.9-36.7) 04/03/25 09:06 Specimen Type Arterial 04/03/25 09:00 Sample Site Brachial, right 04/03/25 09:00 ABG pH 7.44 (7.35-7.45) 04/03/25 09:00 ABG pCO2 38.6 mmHg (35-45) 04/03/25 09:00 ABG pO2 78.3 mmHg (80.0-100.0) L 04/03/25 09:00 ABG PO2/FiO2 Ratio 372 04/03/25 09:00 ABG HCO3 26.0 mmol/L (22-26) 04/03/25 09:00 ABG O2 Saturation 95.5 04/03/25 09:00 ABG Base Excess 1.7 mmol/L (-2.0-2.0) 04/03/25 09:00 Nikolas Test N/a 04/03/25 09:00 A-a O2 Gradient 3.0 mmHg (5-10) L 04/03/25 09:00 Hematocrit 32.4 % (42-52) L 04/03/25 09:00 Hgb O2 Saturation 93.1 % (95-100) L 04/03/25 09:00 Carboxyhemoglobin 0.8 %THgb (0.4-20.1) 04/03/25 09:00 Methemoglobin 1.7 % (0.4-1.5) H 04/03/25 09:00 Total Hemoglobin 10.6 g/dL (14-18) L 04/03/25 09:00 Sodium 137.0 mmol/L (131-143) 04/03/25 09:00 Potassium 3.5 mmol/L (3.5-5.0) 04/03/25 09:00 Glucose 97.0 mg/dL (70-115) 04/03/25 09:00 Ionized Calcium 1.2 mmol/L (1.1-1.4) 04/03/25 09:00 O2 Delivery Device Room air 04/03/25 09:00 FiO2 21.0 % 04/03/25 09:00 Circular Saw Operator ID Amh 04/03/25 09:00 Sodium 138 mmol/L (136-145) 04/03/25 09:06 Potassium 3.8 mmol/L (3.5-5.1) 04/03/25 09:06 Chloride 101 mmol/L (98-107) 04/03/25 09:06 Carbon Dioxide 23 mmol/L (22-29) 04/03/25 09:06 Anion Gap 17.8 (5-19) 04/03/25 09:06 BUN 20 mg/dL (8-23) 04/03/25 09:06 Creatinine 1.2 mg/dL (0.7-1.2) 04/03/25 09:06 GFR Calculation Not Reportable 04/03/25 09:06 Glucose 92 mg/dL (65-115) 04/03/25 09:06 POC Glucose 96 mg/dL (70-110) 04/03/25 08:59 Calculated Osmolality 288 mOsm/kg (285-295) 04/03/25 09:06 Calcium 9.3 mg/dL (8.5-10.5) 04/03/25 09:06 Total Bilirubin 0.4 mg/dL (0.15-1.2) 04/03/25 09:06 AST 19 U/L (0-40) 04/03/25 09:06 ALT 11 U/L (0-41) 04/03/25 09:06 Alkaline Phosphatase 63 U/L (40-130) 04/03/25 09:06 Total Protein 6.1 g/dL (6.6-8.7) L 04/03/25 09:06 Albumin 4.0 g/dL (3.5-5.2) 04/03/25 09:06 Globulin 2.1 g/dL (1.3-4.6) 04/03/25 09:06 All radiology interpretation(s) finalized by discharge EKG Data EKG 1: Interpretation: paced rhythm Discharge Plan Discharge Patient Disposition: Xfer Short-Term Hosp Clinical Impression: Subacute subdural hematoma Condition: Stable Referrals: Kalani Guillaume MD [Primary Care Provider, [facility]] Patient Instructions: Opioid Safety, Pain Management, Patient Portal & Stephen Instructions Print Language: Yakut Coding Level of Care Code ED Malted Milk Masher for Chg Rojas
[2025-04-03 09:12] LABS: ABG PCO2 38.6 mmHg (35-45); ABG PH Result 7.44 (7.35-7.45); Alveolar-Arterial Oxygen Gradi 3.0 mmHg (5-10); Arterial Blood Gas Hematocrit 32.4 % (42-52); Blood Gas Operator Identificat AMH; Blood Gas Sample Site Brachial, right; Blood Gas Sample Type Arterial; Carboxyhemoglobin 0.8 %THgb (0.4-20.1); Glucose Level-ABG 97.0 mg/dL (70-115); HCO3 ABG 26.0 mmol/L (22-26); Ionized Calcium Level - ABG 1.2 mmol/L (1.1-1.4); Methemoglobin 1.7 % (0.4-1.5); Oxygen Saturation ABG 95.5; PO2 ABG 78.3 mmHg (80.0-100.0); PO2 FiO2 Ratio Arterial Blood 372; Potassium Level - ABG 3.5 mmol/L (3.5-5.0); Sodium Level - ABG 137.0 mmol/L (131-143)
[2025-04-03 09:13] LABS: Hematocrit 38.1 % (37-53); Hemoglobin 10.90 g/dL (11.27-16.99); Mean Corpuscular HGB Conc 28.6 g/dL (30-55); Mean Corpuscular Hemoglobin 29.9 pg (27-33); Mean Corpuscular Volume 104.4 fl (82-101); Nucleated Red Blood Cells % 0 %; Platelet Count 123 10^3/cmm (157-399); Red Blood Count 3.65 10^6/uL (3.85-5.65); White Blood Count 6.52 10^3/uL (3.29-11.43)
[2025-04-03 09:27] LABS: INR 0.96 (0.8-1.2); Prothrombin Time 13.50 SECONDS (12.1-14.9)
[2025-04-03 09:28] LABS: Partial Thromboplastin Time 29.3 SECONDS (23.9-36.7)
[2025-04-03 09:33] LABS: Alanine Aminotransferase 11 U/L (0-41); Albumin Level 4.0 g/dL (3.5-5.2); Alkaline Phosphatase 63 U/L (40-130); Anion Gap 17.8 (5-19); Aspartate Amino Transferase 19 U/L (0-40); Blood Urea Nitrogen 20 mg/dL (8-23); Calcium 9.3 mg/dL (8.5-10.5); Carbon Dioxide 23 mmol/L (22-29); Chloride 101 mmol/L (98-107); Creatinine Clr Calc Pharmacy 48.5731; Globulin 2.1 g/dL (1.3-4.6); Glucose 92 mg/dL (65-115); Osmolality Calculated 288 mOsm/kg (285-295); Potassium 3.8 mmol/L (3.5-5.1); Sodium 138 mmol/L (136-145); Total Protein 6.1 g/dL (6.6-8.7)
[2025-04-03 09:40] LABS: Slide Review Slide Review Perform
--- NOTE | 2025-04-03 10:28 | PC.NURSE ---
REPORT CALLED TO SHARIF ROJAS IN [place] TO DILLON TAYLOR. ACCEPTING NURSE DENIED ANY VERBALIZED QUESTIONS AT THIS TIME.
[2025-04-03] MEDS: fentaNYL 50 mcg/mL INJ 2mL IVP (12:08)
[2025-04-03 12:27] LABS: Glucose Urine UA Negative (Normal); Nitrate Urine Negative (Negative); Specific Gravity, Urine 1.014 (1.005-1.030)
[2025-04-03 12:52] LABS: PCP Screen Urine Negative (Negative)
[2025-04-03 13:50] LABS: Add Urine Microscopic? YES
== END 2025-04-03 14:22 | disposition short-term general hospital (02) ==
PROVIDERS: Emergency Provider Family Medicine; PCP Family Medicine
DX: S06.5X0D Traumatic subdural hemorrhage without loss of consciousness, subsequent encounter (principal); W19.XXXD Unspecified fall, subsequent encounter; N18.9 Chronic kidney disease, unspecified; I50.9 Heart failure, unspecified; Z87.891 Personal history of nicotine dependence
CPT/HCPCS: 36415; 36416; 36600; 70450; 80051; 80053; 80306; 81001; 82330; 82805; 82962; 85025; 85610; 85730; 93005; 96374; 99285; J3010

== ENCOUNTER → 2025-04-16 12:43 | Outpatient (BNVA) | payer MEDICARE, SELFPAY | PROVIDERS: PCP Family Medicine; Visit Provider Internal Medicine Rheumatology | DX: I73.9 Peripheral vascular disease, unspecified (principal); M06.041 Rheumatoid arthritis without rheumatoid factor, right hand; M06.042 Rheumatoid arthritis without rheumatoid factor, left hand; Z79.899 Other long term (current) drug therapy; Z71.85 Encounter for immunization safety counseling | CPT/HCPCS: 99214 ==